=== PATIENT | female | born 1945 | race Caucasian/White ===

== ENCOUNTER 2018-06-18 12:06 | Inpatient (IN) | payer OTHER, MEDICAID ==
[~2018-06-18] VITALS: Ht 167.6 cm; Wt 103.9 kg
--- NOTE | 2018-06-18 13:10 | PHYS DOC ---
Adult General Chief Complaint Chief Complaint: SHORTNESS OF BREATH HPI HPI Patient is a 73 year old female who presents with SOA. Pt states she had a doctors appointment this morning and she was told to come to the ED because she was in heart failure. She has been SOA since last November when she was diagnosed with COPD. She complains of leg swelling for a month with associated 16 pound weight gain. Increased shortness of breath with lying flat She takes a water pill. She has a chronic cough with clear sputum production. Denies CP, nausea, vomiting, fever, chills. [] Review of Systems Review of Systems Constitutional: Denies fever or chills [] Eyes: Denies change in visual acuity, redness, or eye pain [] HENT: Denies nasal congestion or sore throat [] Respiratory: Productive cough, shortness of breath [] Cardiovascular: No additional information not addressed in HPI [] GI: Denies abdominal pain, nausea, vomiting, bloody stools or diarrhea [] : Denies dysuria or hematuria [] Musculoskeletal: Denies back pain or joint pain [] Integument: Denies rash or skin lesions [] Neurologic: Denies headache, focal weakness or sensory changes [] Endocrine: Denies polyuria or polydipsia [] All other systems were reviewed and found to be within normal limits, except as documented in this note. Current Medications Current Medications Current Medications Medications (Trade) Dose Ordered Sig/Segundo Start Time Stop Time Status Last Admin Dose Admin Aspirin (Children'S Aspirin) 324 mg 1X ONCE 06/18/18 14:00 06/18/18 14:47 DC 06/18/18 14:59 324 MG Furosemide (Lasix) 40 mg 1X ONCE 06/18/18 14:00 06/18/18 14:47 DC 06/18/18 14:59 40 MG Physical Exam Physical Exam Constitutional: Well developed, well nourished, no acute distress, non-toxic appearance. [] HENT: Normocephalic, atraumatic, bilateral external ears normal, oropharynx moist, no oral exudates, nose normal. [] Eyes: PERRLA, EOMI, conjunctiva normal, no discharge. [] Neck: Normal range of motion, no tenderness, supple, no stridor. [] Cardiovascular:Heart rate regular rhythm, no murmur [] Lungs & Thorax: Decreased bibasilar breath sounds with faint crackles noted bilaterally Abdomen: Bowel sounds normal, soft, no tenderness, no masses, no pulsatile masses. [] Skin: Warm, dry, no erythema, no rash. [] Back: No tenderness, no CVA tenderness. [] Extremities: No tenderness, no cyanosis, no clubbing, ROM intact,EDEMA NOTED Neurologic: Alert and oriented X 3, normal motor function, normal sensory function, no focal deficits noted. [] Psychologic: Affect normal, judgement normal, mood normal. [] Current Patient Data Vital Signs Vital Signs Date Time Temp Pulse Resp B/P (MAP) Pulse Ox O2 Delivery O2 Flow Rate FiO2 06/18/18 14:00 86 18 110/58 (75) 94 Nasal Cannula 4.0 06/18/18 13:07 98.6 98.6 Lab Values Laboratory Tests Test 06/18/18 13:30 White Blood Count 4.5 x10^3/uL (4.0-11.0) Red Blood Count 4.72 x10^6/uL (3.50-5.40) Hemoglobin 13.5 g/dL (12.0-15.5) Hematocrit 41.1 % (36.0-47.0) Mean Corpuscular Volume 87 fL (79-100) Mean Corpuscular Hemoglobin 29 pg (25-35) Mean Corpuscular Hemoglobin Concent 33 g/dL (31-37) Red Cell Distribution Width 17.1 % (11.5-14.5) H Platelet Count 139 x10^3/uL (140-400) L Neutrophils (%) (Auto) 83 % (31-73) H Lymphocytes (%) (Auto) 12 % (24-48) L Monocytes (%) (Auto) 4 % (0-9) Eosinophils (%) (Auto) 1 % (0-3) Basophils (%) (Auto) 1 % (0-3) Neutrophils # (Auto) 3.7 x10^3uL (1.8-7.7) Lymphocytes # (Auto) 0.5 x10^3/uL (1.0-4.8) L Monocytes # (Auto) 0.2 x10^3/uL (0.0-1.1) Eosinophils # (Auto) 0.0 x10^3/uL (0.0-0.7) Basophils # (Auto) 0.0 x10^3/uL (0.0-0.2) Prothrombin Time 13.9 SEC (11.7-14.0) Prothrombin Time INR 1.1 (0.8-1.1) Sodium Level 125 mmol/L (136-145) L Potassium Level 3.0 mmol/L (3.5-5.1) L Chloride Level 86 mmol/L (98-107) L Carbon Dioxide Level 29 mmol/L (21-32) Anion Gap 10 (6-14) Blood Urea Nitrogen 6 mg/dL (7-20) L Creatinine 1.1 mg/dL (0.6-1.0) H Estimated GFR (Cockcroft-Gault) 48.8 BUN/Creatinine Ratio 5 (6-20) L Glucose Level 137 mg/dL (70-99) H Calcium Level 8.9 mg/dL (8.5-10.1) Magnesium Level 2.0 mg/dL (1.8-2.4) Total Bilirubin 1.8 mg/dL (0.2-1.0) H Aspartate Amino Transferase (AST) 22 U/L (15-37) Alanine Aminotransferase (ALT) 20 U/L (14-59) Alkaline Phosphatase 189 U/L (46-116) H Troponin I Quantitative 0.037 ng/mL (0.000-0.055) YD-Nnu-W-Type Natriuretic Peptide 46342 pg/mL (0-124) H Total Protein 7.0 g/dL (6.4-8.2) Albumin 3.4 g/dL (3.4-5.0) Albumin/Globulin Ratio 0.9 (1.0-1.7) L Triglycerides Level 104 mg/dL (0-150) Cholesterol Level 154 mg/dL (0-200) LDL Cholesterol, Calculated 98 mg/dL (0-100) VLDL Cholesterol, Calculated 21 mg/dL (0-40) Non-HDL Cholesterol Calculated 119 mg/dL (0-129) HDL Cholesterol 35 mg/dL (40-60) L Cholesterol/HDL Ratio 4.4 Thyroid Stimulating Hormone (TSH) 5.404 uIU/mL (0.358-3.74) H Laboratory Tests 06/18/18 13:30 Laboratory Tests 06/18/18 13:30 EKG EKG EKG shows normal sinus rhythm rate of [address] depressions in the lateral leads no definite ST elevation was noted interpreted by me the time of encounter[] Radiology/Procedures Radiology/Procedures [] Impressions: IMPRESSION: 1. Small right pleural effusion and trace left pleural effusion. 2. Mild atelectasis or infiltrate in the right lung base. 3. Mild diffuse interstitial prominence could be related to chronic fibrosis. Mild interstitial infiltrate or edema is possible. Electronically signed by: David Vega MD (06/18/2018 1:14 PM) [facility] Course & Med Decision Making Course & Med Decision Making Pertinent Labs and Imaging studies reviewed. (See chart for details) 73 YO F WITH CC OF SOB X MONTHS FOUND TO HAVE CHF. CXR AND BNP SUGGESTIVE OF THAT. 85 ra PT STABLE ON NC LASIX ORDERED K ORDERED D/W FARELA FOR ADMIT Dragon Disclaimer Dragon Disclaimer This electronic medical record was generated, in whole or in part, using a voice recognition dictation system. Departure Departure Impression: Primary Impression: Congestive heart failure Disposition: ADMITTED INPATIENT Admitting Physician: Other Condition: STABLE SON WAGGONER MD Jun 18, 2018 13:10
--- NOTE | 2018-06-18 13:17 | RAD ---
PORTABLE CHEST 1V History: SOA. No prior study for comparison. The heart size is widened in transverse diameter. There is a small right pleural effusion. Possible trace left pleural effusion. No pneumothorax. Mild irregular pleural and parenchymal density of both lung apices, would most commonly be due to scarring. Mild linear density right lung compatible with atelectasis. Mild interstitial prominence bilaterally. Mild right lung base atelectasis versus mild infiltrate. IMPRESSION: 1. Small right pleural effusion and trace left pleural effusion. 2. Mild atelectasis or infiltrate in the right lung base. 3. Mild diffuse interstitial prominence could be related to chronic fibrosis. Mild interstitial infiltrate or edema is possible. Electronically signed by: David Vega MD (06/18/2018 1:14 PM) [facility]
[2018-06-18 13:39] LABS: BASO % 1 % (0-3); EOS % 1 % (0-3); HEMATOCRIT 41.1 % (36.0-47.0); HEMOGLOBIN 13.5 g/dL (12.0-15.5); LYMPH # 0.5 x10^3/uL (1.0-4.8); LYMPH % 12 % (24-48); MEAN CORPUSCULAR HEMOGLOBIN 29 pg (25-35); MEAN CORPUSCULAR HGB CONC 33 g/dL (31-37); MEAN CORPUSCULAR VOLUME 87 fL (79-100); MONO # 0.2 x10^3/uL (0.0-1.1); MONO % 4 % (0-9); NEUT # 3.7 x10^3uL (1.8-7.7); NEUT % 83 % (31-73); PLATELET COUNT 139 x10^3/uL (140-400); RED BLOOD COUNT 4.72 x10^6/uL (3.50-5.40); RED CELL DISTRIBUTION WIDTH 17.1 % (11.5-14.5); WHITE BLOOD COUNT 4.5 x10^3/uL (4.0-11.0)
[2018-06-18 13:48] LABS: PROTHROMBIN TIME PATIENT 13.9 SEC (11.7-14.0)
[2018-06-18] MEDS ORDERED: FUROSEMIDE 40 MG/4 ML VIAL. IVP ONE (14:00)
[2018-06-18] MEDS ORDERED: ASPIRIN CHEWABLE 81 MG TABLET. PO ONE (14:00)
[2018-06-18 14:19] LABS: ALBUMIN 3.4 g/dL (3.4-5.0); ALBUMIN/GLOBULIN RATIO 0.9 (1.0-1.7); CALCIUM 8.9 mg/dL (8.5-10.1); CREATININE 1.1 mg/dL (0.6-1.0); GFR 48.8; TOTAL BILIRUBIN 1.8 mg/dL (0.2-1.0)
--- NOTE | 2018-06-18 14:35 | EKG ---
[facility] [address] [place] [address] Test Date: 2018-06-18 Test Time: 12:26:23 Pat Name: SHANEKA DAVIS Department: Room: Gender: F Revival Clerk: : [id number] Requested By: SON WAGGONER Order Number: [id number] Reading MD: Genaro Solano MD Measurements Intervals [place] Rate: 93 P: 22 CO: 172 QRS: 31 QRSD: 106 T: 66 QT: 386 QTc: 483 Interpretive Statements SINUS RHYTHM ATRIAL PREMATURE COMPLEX(ES) LEFT ATRIAL ABNORMALITY LOW LIMB LEAD VOLTAGE ST & T ABNORMALITY, CONSIDER INFEROLATERAL ISCHEMIA OR LEFT VENTRICULAR STRAIN ABNORMAL ECG INTRAVENTRICULAR CONDUCTION DELAY Electronically Signed On 06-22-2018 14:57:23 CDT by Genaro Solano MD
[2018-06-18] MEDS ORDERED: POTASSIUM CHLORIDE 20 MEQ/15 ML ORAL LIQUID. PO ONE (15:00)
--- NOTE | 2018-06-18 15:02 | PDOC2 ---
NURA BELL CUT AND COVER LINE WORKER 06/18/18 1502: CARDIAC CONSULT DATE OF CONSULT Date of Consult DATE: 06/18/18 TIME: 14:58 REASON FOR CONSULT Reason for Consult: CHF REFERRING PHYSICIAN Referring Physician: Chris SOURCE Source: Chart review, Patient HISTORY OF PRESENT ILLNESS HISTORY OF PRESENT ILLNESS This is a 73 yo female admitted for complains of SOA. She just started seeing her family doctor regularly last yr. She has been having SOA in the last month and actually was placed on lasix not too long ago 80 mg daily ans was complaining of SOA over a week ago and leg swelling and was placed on maxide and lasix was discontinued accdg to her. Her PCP is currently on vacation and saw the nurse practitioner in the same office because her leg is red and was SOA and noted to have gained about 16 pounds in just a week. Her abdomen also has been feeling bigger and feeling bloated and her appetite has decreased. She denies eating processed food and actually receives meals on wheels. She drinks adequate amount of fluids. Denies any chest pain or palpitations but she has been more SOA in the last 2 days more so with exertion with no O2 being utilized at home. She was recently diagnosed with COPD 11/2017 with over 55 pk yr smoking and quit at that time as well. No hx of CAD, arrhythmias, GÓMEZ, or VTE. She does have small superficial ulcer behind her right radha which she said from scratching. She initially told me that her legs hurt when walking but then later denied and her friend reiterates weakness. Has not had any cardiac testing in the past. Denies any fever chills. PAST MEDICAL HISTORY Cardiovascular: CHF Pulmonary: COPD CENTRAL NERVOUS SYSTEM: Other (No pertinent history) GI: No pertinent hx Heme/Onc: No pertinent hx Hepatobiliary: No pertinent hx Psych: No pertinent hx Musculoskeletal: Osteoarthritis Rheumatologic: No pertinent hx Infectious disease: No pertinent hx ENT: No pertinent hx Renal/: No pertinent hx Endocrine: Hypothyroidism Dermatology: Other (large mid back lesion irregular no redness that she had for 50 yrs, no drain or redness currently; right calf superficial ulcer small. ) PAST SURGICAL HISTORY Past Surgical History: Arthroscopy (right), Cataract Removal, Other (left ankle surgery with metal plate) FAMILY HISTORY Family History noncontributory to CV SOCIAL HISTORY Smoke: Quit (55 pk yr) ALCOHOL: none Drugs: None Lives: with Family (she takes care of her mother at home) ALLERGIES ALLERGIES: Coded Allergies: Penicillins (Verified Allergy, Intermediate, 06/18/18) ROS Review of System 14 point ROS evaluated with pertinent positives noted per HPI PHYSICAL EXAM General: Alert, Oriented X3, Cooperative, No acute distress HEENT: Atraumatic, Mucous membr. moist/pink Lungs: Other (basilr crackles, diminished) Heart: Regular rate (SR), Other (distal heart sounds) Abdomen: Soft, Other (obese) Extremities: Other (erythema to bilateral LE more to left. superficioal ulcer to right posterior calf. ) Skin: Other (patchy coolness to bilateral LE) Neuro: Normal speech, Sensation intact Psych/Mental Status: Mental status NL, Mood NL MUSCULOSKELETAL: Osteoarthritic changes both hands VITALS VITALS Vital Signs Date Time Temp Pulse Resp B/P (MAP) Pulse Ox O2 Delivery O2 Flow Rate FiO2 06/18/18 13:07 98.6 96 22 112/63 (79) 85 Room Air 98.6 LABS Lab: Laboratory Tests Test 06/18/18 13:30 White Blood Count 4.5 x10^3/uL (4.0-11.0) Red Blood Count 4.72 x10^6/uL (3.50-5.40) Hemoglobin 13.5 g/dL (12.0-15.5) Hematocrit 41.1 % (36.0-47.0) Mean Corpuscular Volume 87 fL (79-100) Mean Corpuscular Hemoglobin 29 pg (25-35) Mean Corpuscular Hemoglobin Concent 33 g/dL (31-37) Red Cell Distribution Width 17.1 % (11.5-14.5) Platelet Count 139 x10^3/uL (140-400) Neutrophils (%) (Auto) 83 % (31-73) Lymphocytes (%) (Auto) 12 % (24-48) Monocytes (%) (Auto) 4 % (0-9) Eosinophils (%) (Auto) 1 % (0-3) Basophils (%) (Auto) 1 % (0-3) Neutrophils # (Auto) 3.7 x10^3uL (1.8-7.7) Lymphocytes # (Auto) 0.5 x10^3/uL (1.0-4.8) Monocytes # (Auto) 0.2 x10^3/uL (0.0-1.1) Eosinophils # (Auto) 0.0 x10^3/uL (0.0-0.7) Basophils # (Auto) 0.0 x10^3/uL (0.0-0.2) Prothrombin Time 13.9 SEC (11.7-14.0) Prothromb Time International Ratio 1.1 (0.8-1.1) Sodium Level 125 mmol/L (136-145) Potassium Level 3.0 mmol/L (3.5-5.1) Chloride Level 86 mmol/L (98-107) Carbon Dioxide Level 29 mmol/L (21-32) Anion Gap 10 (6-14) Blood Urea Nitrogen 6 mg/dL (7-20) Creatinine 1.1 mg/dL (0.6-1.0) Estimated GFR (Cockcroft-Gault) 48.8 BUN/Creatinine Ratio 5 (6-20) Glucose Level 137 mg/dL (70-99) Calcium Level 8.9 mg/dL (8.5-10.1) Total Bilirubin 1.8 mg/dL (0.2-1.0) Aspartate Amino Transf (AST/SGOT) 22 U/L (15-37) Alanine Aminotransferase (ALT/SGPT) 20 U/L (14-59) Alkaline Phosphatase 189 U/L (46-116) Troponin I Quantitative 0.037 ng/mL (0.000-0.055) AZ-Cgg-E-Type Natriuretic Peptide 99471 pg/mL (0-124) Total Protein 7.0 g/dL (6.4-8.2) Albumin 3.4 g/dL (3.4-5.0) Albumin/Globulin Ratio 0.9 (1.0-1.7) ASSESSMENT/PLAN ASSESSMENT/PLAN 1. Acute on chronic CHF with suspected diastolic dysfunction 2. AECOPD/pulmonary HTN 3. LE edema with possible cellulitis: more to RLE with small superficial right posterior ulcer. suspecting PAD. 4. Hypothyroidism 5. Chronic large mid back elevated lesion: defer to PCP 6. Morbid obesity with likely GÓMEZ 7. Severe onychmycoses: per PCP Recommendations 1. LE duplex. TTE. 2. Lasix therapy. Continue with home ASA. Statin per lipid level. 3. TSH, Mg, A1C, UA 4. Replace K. 5. Wt loss. 6. will need outpt GÓMEZ workup. ALYSSIA PASCUAL MD 06/18/18 1630: CARDIAC CONSULT ASSESSMENT/PLAN ASSESSMENT/PLAN Pt. seen and examined. Agree with above FLORAL DECORATOR note. Continue diuresis and close monitoring of lytes. Await diagnostic studies including PAD eval. Can consider outpt angio depending on wound healing, diuretic response etc. Will follow along. NURA BELL CUT AND COVER LINE WORKER Jun 18, 2018 15:02 ALYSSIA PASCUAL MD Jun 18, 2018 16:30
[2018-06-18 15:37] LABS: CHOLESTEROL/HDL RATIO 4.4
--- NOTE | 2018-06-18 15:58 | PDOC1 ---
History and Physical Date of Admission Date of Admission 06/18/2018 Identification/Chief Complaint Chief Complaint My legs are swollen Problems: (1) Congestive heart failure Source Source: Chart review, Patient History of Present Illness History of Present Illness Patient is a 73-year-old female with past medical history of congestive heart failure which most likely is combined chronic in nature who was in her usual state of health until approximately 2 weeks prior to her admission. The patient has been seen by her primary care physician and she had a recent changes to her medications. She was started on Maxide to substitute her previous diuretic therapy with Lasix 80 mg twice a day. Ever since the change of her medication patient has noted a decrease in her urinary output and has gained approximately 16 pounds. The majority of her complaints is due to lower extremity edema which she describes as swelling as a cantaloupe. The patient has pain upon ambulation due to the edema that she denies symptoms consistent with claudication most likely her discomfort is due to the increase edema. The patient denies headache no blurred vision she denies slurred speech no chest pain no palpitations she denies shortness of breath nevertheless the patient sleeps with several pillows almost sitting up she has orthopnea denies paroxysmal nocturnal dyspnea. Patient has history also of severe sore arthritis or her ankles. At the time my evaluation the patient is able to speak in full sentences she does not seem to be in acute distress but she has already received diuretic therapy at the time my evaluation by ER physician. We were asked to admit for further evaluation and treatment. Plan of care has been explained detail to the patient. All of her concerns were addressed the best of my abilities. Laboratory data was discussed with the patient. Past Medical History Cardiovascular: CHF, HTN Past Surgical History Past Surgical History: Total knee replacement Family History Family History: Other (reviewed and found negative noncontributory to the present) Social History Smoke: No ALCOHOL: none Drugs: None Current Problem List Problem List Problems Medical Problems: (1) Congestive heart failure Status: Acute Current Medications Current Medications Current Medications Medications (Trade) Dose Ordered Sig/Segundo Start Time Stop Time Status Last Admin Dose Admin Aspirin (Children'S Aspirin) 324 mg 1X ONCE 06/18/18 14:00 06/18/18 14:47 DC 06/18/18 14:59 324 MG Furosemide (Lasix) 40 mg [id number] 06/19/18 09:00 Potassium Chloride (KCl Oral Soln) 40 meq 1X ONCE 06/18/18 15:00 06/18/18 15:01 DC 06/18/18 14:59 40 MEQ Allergies Allergies Allergies Coded Allergies Type Severity Reaction Last Updated Verified Penicillins Allergy Intermediate 06/18/18 Yes ROS Review of System CONSTITUTIONAL: No fever or chills EYES: No recent changes SKIN: No rash or itching, she has a cystic lesion in her back in the thoracic area with evidence of previous draining tracts now with a scab on top she refers having this lesion for 50 years now CARDIOVASCULAR: No chest pain, syncope, palpitations, or edema RESPIRATORY: +SOB no cough GASTROINTESTINAL: No nausea, vomiting or abdominal pain NEUROLOGICAL: No headaches + weakness ENDOCRINE: No cold or heat intolerance GENITOURINARY: No urgency or frequency of urination MUSCULOSKELETAL: No back pain or joint pain LYMPHATICS: No enlarged lymph nodes PSYCHIATRIC: No anxiety or depression Physical Exam Physical Exam GEN.: Obese ,sittiing on a stretches in No apparent distress. Alert and oriented. HEENT: Head is normocephalic, atraumatic NECK: Supple. LUNGS: Clear to auscultation.distant breath sounds due to body habitus HEART: RRR, S1, S2 present. Peripheral pulses intact ABDOMEN: Soft, nontender. Positive bowel sounds. EXTREMITIES: Without any cyanosis. erythema bilaterally, 2+ edema NEUROLOGIC: Normal speech, normal tone CN 2 to 12 intact no motor or sensory deficit. PSYCHIATRIC: Normal affect, normal mood. SKIN: No ulcerations Vitals Vitals Vital Signs Date Time Temp Pulse Resp B/P (MAP) Pulse Ox O2 Delivery O2 Flow Rate FiO2 06/18/18 13:07 98.6 96 22 112/63 (79) 85 Room Air 98.6 Labs Labs Laboratory Tests Test 06/18/18 13:30 White Blood Count 4.5 x10^3/uL (4.0-11.0) Red Blood Count 4.72 x10^6/uL (3.50-5.40) Hemoglobin 13.5 g/dL (12.0-15.5) Hematocrit 41.1 % (36.0-47.0) Mean Corpuscular Volume 87 fL (79-100) Mean Corpuscular Hemoglobin 29 pg (25-35) Mean Corpuscular Hemoglobin Concent 33 g/dL (31-37) Red Cell Distribution Width 17.1 % (11.5-14.5) Platelet Count 139 x10^3/uL (140-400) Neutrophils (%) (Auto) 83 % (31-73) Lymphocytes (%) (Auto) 12 % (24-48) Monocytes (%) (Auto) 4 % (0-9) Eosinophils (%) (Auto) 1 % (0-3) Basophils (%) (Auto) 1 % (0-3) Neutrophils # (Auto) 3.7 x10^3uL (1.8-7.7) Lymphocytes # (Auto) 0.5 x10^3/uL (1.0-4.8) Monocytes # (Auto) 0.2 x10^3/uL (0.0-1.1) Eosinophils # (Auto) 0.0 x10^3/uL (0.0-0.7) Basophils # (Auto) 0.0 x10^3/uL (0.0-0.2) Prothrombin Time 13.9 SEC (11.7-14.0) Prothromb Time International Ratio 1.1 (0.8-1.1) Sodium Level 125 mmol/L (136-145) Potassium Level 3.0 mmol/L (3.5-5.1) Chloride Level 86 mmol/L (98-107) Carbon Dioxide Level 29 mmol/L (21-32) Anion Gap 10 (6-14) Blood Urea Nitrogen 6 mg/dL (7-20) Creatinine 1.1 mg/dL (0.6-1.0) Estimated GFR (Cockcroft-Gault) 48.8 BUN/Creatinine Ratio 5 (6-20) Glucose Level 137 mg/dL (70-99) Calcium Level 8.9 mg/dL (8.5-10.1) Magnesium Level 2.0 mg/dL (1.8-2.4) Total Bilirubin 1.8 mg/dL (0.2-1.0) Aspartate Amino Transf (AST/SGOT) 22 U/L (15-37) Alanine Aminotransferase (ALT/SGPT) 20 U/L (14-59) Alkaline Phosphatase 189 U/L (46-116) Troponin I Quantitative 0.037 ng/mL (0.000-0.055) PZ-Ssm-K-Type Natriuretic Peptide 95405 pg/mL (0-124) Total Protein 7.0 g/dL (6.4-8.2) Albumin 3.4 g/dL (3.4-5.0) Albumin/Globulin Ratio 0.9 (1.0-1.7) Triglycerides Level 104 mg/dL (0-150) Cholesterol Level 154 mg/dL (0-200) LDL Cholesterol, Calculated 98 mg/dL (0-100) VLDL Cholesterol, Calculated 21 mg/dL (0-40) Non-HDL Cholesterol Calculated 119 mg/dL (0-129) HDL Cholesterol 35 mg/dL (40-60) Cholesterol/HDL Ratio 4.4 Thyroid Stimulating Hormone (TSH) 5.404 uIU/mL (0.358-3.74) Laboratory Tests Test 06/18/18 13:30 White Blood Count 4.5 x10^3/uL (4.0-11.0) Red Blood Count 4.72 x10^6/uL (3.50-5.40) Hemoglobin 13.5 g/dL (12.0-15.5) Hematocrit 41.1 % (36.0-47.0) Mean Corpuscular Volume 87 fL (79-100) Mean Corpuscular Hemoglobin 29 pg (25-35) Mean Corpuscular Hemoglobin Concent 33 g/dL (31-37) Red Cell Distribution Width 17.1 % (11.5-14.5) Platelet Count 139 x10^3/uL (140-400) Neutrophils (%) (Auto) 83 % (31-73) Lymphocytes (%) (Auto) 12 % (24-48) Monocytes (%) (Auto) 4 % (0-9) Eosinophils (%) (Auto) 1 % (0-3) Basophils (%) (Auto) 1 % (0-3) Neutrophils # (Auto) 3.7 x10^3uL (1.8-7.7) Lymphocytes # (Auto) 0.5 x10^3/uL (1.0-4.8) Monocytes # (Auto) 0.2 x10^3/uL (0.0-1.1) Eosinophils # (Auto) 0.0 x10^3/uL (0.0-0.7) Basophils # (Auto) 0.0 x10^3/uL (0.0-0.2) Prothrombin Time 13.9 SEC (11.7-14.0) Prothromb Time International Ratio 1.1 (0.8-1.1) Sodium Level 125 mmol/L (136-145) Potassium Level 3.0 mmol/L (3.5-5.1) Chloride Level 86 mmol/L (98-107) Carbon Dioxide Level 29 mmol/L (21-32) Anion Gap 10 (6-14) Blood Urea Nitrogen 6 mg/dL (7-20) Creatinine 1.1 mg/dL (0.6-1.0) Estimated GFR (Cockcroft-Gault) 48.8 BUN/Creatinine Ratio 5 (6-20) Glucose Level 137 mg/dL (70-99) Calcium Level 8.9 mg/dL (8.5-10.1) Magnesium Level 2.0 mg/dL (1.8-2.4) Total Bilirubin 1.8 mg/dL (0.2-1.0) Aspartate Amino Transf (AST/SGOT) 22 U/L (15-37) Alanine Aminotransferase (ALT/SGPT) 20 U/L (14-59) Alkaline Phosphatase 189 U/L (46-116) Troponin I Quantitative 0.037 ng/mL (0.000-0.055) FG-Ole-W-Type Natriuretic Peptide 61826 pg/mL (0-124) Total Protein 7.0 g/dL (6.4-8.2) Albumin 3.4 g/dL (3.4-5.0) Albumin/Globulin Ratio 0.9 (1.0-1.7) Triglycerides Level 104 mg/dL (0-150) Cholesterol Level 154 mg/dL (0-200) LDL Cholesterol, Calculated 98 mg/dL (0-100) VLDL Cholesterol, Calculated 21 mg/dL (0-40) Non-HDL Cholesterol Calculated 119 mg/dL (0-129) HDL Cholesterol 35 mg/dL (40-60) Cholesterol/HDL Ratio 4.4 Thyroid Stimulating Hormone (TSH) 5.404 uIU/mL (0.358-3.74) VTE Prophylaxis Ordered VTE Prophylaxis Devices: No VTE Pharmacological Prophylaxi: Yes Assessment/Plan Assessment/Plan Acute on chronic congestive heart failure secondary to fluid overload, combined systolic and diastolic dysfunction suspected Hyponatremia as a consequence of diuretic therapy Contraction alkalosis Obesity with a BMI of 38 Chronic kidney disease stage II Hyperglycemia History of tobacco abuse quit about 1 year ago after greater than [id number] history of smoking COPD most likely Hypokalemia Plan: diuresis restart home medications once available hold maxide replace electrolytes consult cardiology oxygen therapy as needed further recommendations based on clinical course DVT prophylaxis: Heparin Problem Qualifiers (1) Congestive heart failure: Heart failure type: combined systolic and diastolic Heart failure chronicity: acute on chronic Qualified Codes: I50.43 - Acute on chronic combined systolic (congestive) and diastolic (congestive) heart failure DA MCADAMS MD Jun 18, 2018 15:58
[2018-06-18] MEDS ORDERED: 0.9 % SODIUM CHLORIDE 10 ML DISP.SYRIN. IV PRN (16:00)
[2018-06-18] MEDS: FUROSEMIDE 40 MG/4 ML VIAL. IV SCH (16:00)
[2018-06-18] MEDS ORDERED: ONDANSETRON PF 4 MG/2 ML VIAL. IV PRN (16:00)
[2018-06-18] MEDS ORDERED: ALBUTEROL SULFATE 2.5 MG/3 ML NEBU. NEB PRN (16:00)
[2018-06-18] MEDS ORDERED: SODIUM PHOSPHATES 19/7GM 133 ML ENEMA. PR PRN (16:00)
[2018-06-18] MEDS: IPRATRPIUM/ALBUTEROL 0.5/2.5MG 3 ML NEBU. NEB SCH ×2 (16:55→20:07)
[2018-06-18] MEDS: HEPARIN for SUB-Q USE 5,000 UNIT/ML VIAL. SQ SCH ×2 (18:10→21:18)
[2018-06-18] MEDS ORDERED: ASPI81TA50 PO (18:27)
[2018-06-18] MEDS ORDERED: LEVO88TA2 PO (18:27)
[2018-06-18] MEDS ORDERED: LATA2.5D3 EACHEYE (18:27)
[2018-06-18] MEDS ORDERED: TRIA1CAP3 PO (18:27)
[2018-06-18 19:00] VITALS: BP 103/62
[2018-06-18 20:22] LABS: BILIRUBIN,URINE NEGATIVE (NEG); CLARITY,URINE CLEAR; COLOR,URINE YELLOW; NITRITE,URINE NEGATIVE (NEG); PROTEIN,URINE NEGATIVE (NEG-TRACE); UROBILINOGEN,URINE 0.2 mg/dL (0.2 mg/dL)
[2018-06-18 20:33] LABS: BACTERIA,URINE 0 /HPF (0-FEW); RBC,URINE 0 /HPF (0-2); SQUAMOUS EPITHELIAL CELL,UR FEW /LPF; WBC,URINE OCC /HPF (0-4)
[2018-06-18] MEDS: LATANOPROST 0.005% OPHTH SOLUTION 2.5ML BOTTLE. OU SCH (21:13)
[2018-06-18 23:01] VITALS: BP 117/60
[2018-06-19] VITALS (7 sets, daily range): BP systolic 94–117; BP diastolic 32–72
[2018-06-19 00:12] LABS: HEMOGLOBIN A1C 7.9 % (4.8-5.6)
[2018-06-19] MEDS: IPRATRPIUM/ALBUTEROL 0.5/2.5MG 3 ML NEBU. NEB SCH ×6 (04:00→20:00)
[2018-06-19 04:13] LABS: GFR 54.5; POTASSIUM 3.2 mmol/L (3.5-5.1)
[2018-06-19] MEDS: diphenhydrAMINE 50 MG/ML VIAL IVP PRN ×2 (04:15→09:31)
--- NOTE | 2018-06-19 07:55 | PDOC ---
PROGRESS NOTES Chief Complaint Chief Complaint Acute on chronic CHF with suspected diastolic dysfunction AECOPD/pulmonary HTN LE edema more to RLE with small superficial right posterior ulcer. suspecting PAD. Hypothyroidism Elevated bilirubin - constipated - bowel regimen Hypokalemia Chronic large mid back elevated lesion Morbid obesity with likely GÓMEZ Severe onychmycoses DM2 - A1c 7.9 History of Present Illness History of Present Illness 73-year-old female with past medical history of congestive heart failure which most likely is combined chronic in nature who was in her usual state of health until approximately 2 weeks prior to her admission. The patient has been seen by her primary care physician and she had a recent changes to her medications. She was started on Maxide to substitute her previous diuretic therapy with Lasix 80 mg twice a day. Ever since the change of her medication patient has noted a decrease in her urinary output and has gained approximately 16 pounds. The majority of her complaints is due to lower extremity edema which she describes as swelling as a cantaloupe. The patient has pain upon ambulation due to the edema that she denies symptoms consistent with claudication most likely her discomfort is due to the increase edema. The patient denies headache no blurred vision she denies slurred speech no chest pain no palpitations she denies shortness of breath nevertheless the patient sleeps with several pillows almost sitting up she has orthopnea denies paroxysmal nocturnal dyspnea. Patient has history also of severe sore arthritis or her ankles. Still short of breath, feels better sitting up in chair. Edema slightly improved. UOP good. K 3.2 this morning, some leg cramps. no CP Plan: A1c is 7.9 - DM2 - will add basal bolus plus regimen for insulin coverage replace K elevate LE Likely d/c in next 24-48 hours Vitals Vitals Vital Signs Date Time Temp Pulse Resp B/P (MAP) Pulse Ox O2 Delivery O2 Flow Rate FiO2 06/19/18 07:27 97.5 87 18 104/32 (56) 97 Nasal Cannula 4.0 97.5 Physical Exam General: Alert, Oriented X3, Cooperative, No acute distress Heart: Regular rate (SR), Other (distal heart sounds) Abdomen: Soft, Other (obese) Extremities: Other (erythema to bilateral LE more to left. superficioal ulcer to right posterior calf. ) Skin: Other (patchy coolness to bilateral LE) Labs LABS Laboratory Tests Test 06/18/18 13:30 06/18/18 19:48 06/19/18 03:30 White Blood Count 4.5 x10^3/uL (4.0-11.0) Red Blood Count 4.72 x10^6/uL (3.50-5.40) Hemoglobin 13.5 g/dL (12.0-15.5) Hematocrit 41.1 % (36.0-47.0) Mean Corpuscular Volume 87 fL (79-100) Mean Corpuscular Hemoglobin 29 pg (25-35) Mean Corpuscular Hemoglobin Concent 33 g/dL (31-37) Red Cell Distribution Width 17.1 % (11.5-14.5) Platelet Count 139 x10^3/uL (140-400) Neutrophils (%) (Auto) 83 % (31-73) Lymphocytes (%) (Auto) 12 % (24-48) Monocytes (%) (Auto) 4 % (0-9) Eosinophils (%) (Auto) 1 % (0-3) Basophils (%) (Auto) 1 % (0-3) Neutrophils # (Auto) 3.7 x10^3uL (1.8-7.7) Lymphocytes # (Auto) 0.5 x10^3/uL (1.0-4.8) Monocytes # (Auto) 0.2 x10^3/uL (0.0-1.1) Eosinophils # (Auto) 0.0 x10^3/uL (0.0-0.7) Basophils # (Auto) 0.0 x10^3/uL (0.0-0.2) Prothrombin Time 13.9 SEC (11.7-14.0) Prothromb Time International Ratio 1.1 (0.8-1.1) Sodium Level 125 mmol/L (136-145) 125 mmol/L (136-145) Potassium Level 3.0 mmol/L (3.5-5.1) 3.2 mmol/L (3.5-5.1) Chloride Level 86 mmol/L (98-107) 88 mmol/L (98-107) Carbon Dioxide Level 29 mmol/L (21-32) 27 mmol/L (21-32) Anion Gap 10 (6-14) 10 (6-14) Blood Urea Nitrogen 6 mg/dL (7-20) 7 mg/dL (7-20) Creatinine 1.1 mg/dL (0.6-1.0) 1.0 mg/dL (0.6-1.0) Estimated GFR (Cockcroft-Gault) 48.8 54.5 BUN/Creatinine Ratio 5 (6-20) Glucose Level 137 mg/dL (70-99) 122 mg/dL (70-99) Hemoglobin A1c 7.9 % (4.8-5.6) Calcium Level 8.9 mg/dL (8.5-10.1) 9.0 mg/dL (8.5-10.1) Magnesium Level 2.0 mg/dL (1.8-2.4) 2.0 mg/dL (1.8-2.4) Total Bilirubin 1.8 mg/dL (0.2-1.0) Aspartate Amino Transf (AST/SGOT) 22 U/L (15-37) Alanine Aminotransferase (ALT/SGPT) 20 U/L (14-59) Alkaline Phosphatase 189 U/L (46-116) Troponin I Quantitative 0.037 ng/mL (0.000-0.055) RD-Bfa-T-Type Natriuretic Peptide 58412 pg/mL (0-124) Total Protein 7.0 g/dL (6.4-8.2) Albumin 3.4 g/dL (3.4-5.0) Albumin/Globulin Ratio 0.9 (1.0-1.7) Triglycerides Level 104 mg/dL (0-150) Cholesterol Level 154 mg/dL (0-200) LDL Cholesterol, Calculated 98 mg/dL (0-100) VLDL Cholesterol, Calculated 21 mg/dL (0-40) Non-HDL Cholesterol Calculated 119 mg/dL (0-129) HDL Cholesterol 35 mg/dL (40-60) Cholesterol/HDL Ratio 4.4 Thyroid Stimulating Hormone (TSH) 5.404 uIU/mL (0.358-3.74) Urine Collection Type Unknown Urine Color Yellow Urine Clarity Clear Urine pH 7.0 Urine Specific [place] <=1.005 Urine Protein Negative mg/dL (NEG-TRACE) Urine Glucose (UA) Negative mg/dL (NEG) Urine Ketones (Stick) Negative mg/dL (NEG) Urine Blood Negative (NEG) Urine Nitrite Negative (NEG) Urine Bilirubin Negative (NEG) Urine Urobilinogen Dipstick 0.2 mg/dL (0.2 mg/dL) Urine Leukocyte Esterase Negative (NEG) Urine RBC 0 /HPF (0-2) Urine WBC Occ /HPF (0-4) Urine Squamous Epithelial Cells Few /LPF Urine Bacteria 0 /HPF (0-FEW) Urine Mucus Slight /LPF Assessment and Plan Assessmemt and Plan Problems Medical Problems: (1) Congestive heart failure Status: Acute Comment Review of Relevant I have reviewed the following items rosangela (where applicable) has been applied. Labs Laboratory Tests Test 06/18/18 13:30 06/18/18 19:48 06/19/18 03:30 White Blood Count 4.5 x10^3/uL (4.0-11.0) Red Blood Count 4.72 x10^6/uL (3.50-5.40) Hemoglobin 13.5 g/dL (12.0-15.5) Hematocrit 41.1 % (36.0-47.0) Mean Corpuscular Volume 87 fL (79-100) Mean Corpuscular Hemoglobin 29 pg (25-35) Mean Corpuscular Hemoglobin Concent 33 g/dL (31-37) Red Cell Distribution Width 17.1 % (11.5-14.5) Platelet Count 139 x10^3/uL (140-400) Neutrophils (%) (Auto) 83 % (31-73) Lymphocytes (%) (Auto) 12 % (24-48) Monocytes (%) (Auto) 4 % (0-9) Eosinophils (%) (Auto) 1 % (0-3) Basophils (%) (Auto) 1 % (0-3) Neutrophils # (Auto) 3.7 x10^3uL (1.8-7.7) Lymphocytes # (Auto) 0.5 x10^3/uL (1.0-4.8) Monocytes # (Auto) 0.2 x10^3/uL (0.0-1.1) Eosinophils # (Auto) 0.0 x10^3/uL (0.0-0.7) Basophils # (Auto) 0.0 x10^3/uL (0.0-0.2) Prothrombin Time 13.9 SEC (11.7-14.0) Prothromb Time International Ratio 1.1 (0.8-1.1) Sodium Level 125 mmol/L (136-145) 125 mmol/L (136-145) Potassium Level 3.0 mmol/L (3.5-5.1) 3.2 mmol/L (3.5-5.1) Chloride Level 86 mmol/L (98-107) 88 mmol/L (98-107) Carbon Dioxide Level 29 mmol/L (21-32) 27 mmol/L (21-32) Anion Gap 10 (6-14) 10 (6-14) Blood Urea Nitrogen 6 mg/dL (7-20) 7 mg/dL (7-20) Creatinine 1.1 mg/dL (0.6-1.0) 1.0 mg/dL (0.6-1.0) Estimated GFR (Cockcroft-Gault) 48.8 54.5 BUN/Creatinine Ratio 5 (6-20) Glucose Level 137 mg/dL (70-99) 122 mg/dL (70-99) Hemoglobin A1c 7.9 % (4.8-5.6) Calcium Level 8.9 mg/dL (8.5-10.1) 9.0 mg/dL (8.5-10.1) Magnesium Level 2.0 mg/dL (1.8-2.4) 2.0 mg/dL (1.8-2.4) Total Bilirubin 1.8 mg/dL (0.2-1.0) Aspartate Amino Transf (AST/SGOT) 22 U/L (15-37) Alanine Aminotransferase (ALT/SGPT) 20 U/L (14-59) Alkaline Phosphatase 189 U/L (46-116) Troponin I Quantitative 0.037 ng/mL (0.000-0.055) AH-Ilq-G-Type Natriuretic Peptide 80143 pg/mL (0-124) Total Protein 7.0 g/dL (6.4-8.2) Albumin 3.4 g/dL (3.4-5.0) Albumin/Globulin Ratio 0.9 (1.0-1.7) Triglycerides Level 104 mg/dL (0-150) Cholesterol Level 154 mg/dL (0-200) LDL Cholesterol, Calculated 98 mg/dL (0-100) VLDL Cholesterol, Calculated 21 mg/dL (0-40) Non-HDL Cholesterol Calculated 119 mg/dL (0-129) HDL Cholesterol 35 mg/dL (40-60) Cholesterol/HDL Ratio 4.4 Thyroid Stimulating Hormone (TSH) 5.404 uIU/mL (0.358-3.74) Urine Collection Type Unknown Urine Color Yellow Urine Clarity Clear Urine pH 7.0 Urine Specific [place] <=1.005 Urine Protein Negative mg/dL (NEG-TRACE) Urine Glucose (UA) Negative mg/dL (NEG) Urine Ketones (Stick) Negative mg/dL (NEG) Urine Blood Negative (NEG) Urine Nitrite Negative (NEG) Urine Bilirubin Negative (NEG) Urine Urobilinogen Dipstick 0.2 mg/dL (0.2 mg/dL) Urine Leukocyte Esterase Negative (NEG) Urine RBC 0 /HPF (0-2) Urine WBC Occ /HPF (0-4) Urine Squamous Epithelial Cells Few /LPF Urine Bacteria 0 /HPF (0-FEW) Urine Mucus Slight /LPF Laboratory Tests Test 06/18/18 13:30 06/18/18 19:48 06/19/18 03:30 White Blood Count 4.5 x10^3/uL (4.0-11.0) Red Blood Count 4.72 x10^6/uL (3.50-5.40) Hemoglobin 13.5 g/dL (12.0-15.5) Hematocrit 41.1 % (36.0-47.0) Mean Corpuscular Volume 87 fL (79-100) Mean Corpuscular Hemoglobin 29 pg (25-35) Mean Corpuscular Hemoglobin Concent 33 g/dL (31-37) Red Cell Distribution Width 17.1 % (11.5-14.5) Platelet Count 139 x10^3/uL (140-400) Neutrophils (%) (Auto) 83 % (31-73) Lymphocytes (%) (Auto) 12 % (24-48) Monocytes (%) (Auto) 4 % (0-9) Eosinophils (%) (Auto) 1 % (0-3) Basophils (%) (Auto) 1 % (0-3) Neutrophils # (Auto) 3.7 x10^3uL (1.8-7.7) Lymphocytes # (Auto) 0.5 x10^3/uL (1.0-4.8) Monocytes # (Auto) 0.2 x10^3/uL (0.0-1.1) Eosinophils # (Auto) 0.0 x10^3/uL (0.0-0.7) Basophils # (Auto) 0.0 x10^3/uL (0.0-0.2) Prothrombin Time 13.9 SEC (11.7-14.0) Prothromb Time International Ratio 1.1 (0.8-1.1) Sodium Level 125 mmol/L (136-145) 125 mmol/L (136-145) Potassium Level 3.0 mmol/L (3.5-5.1) 3.2 mmol/L (3.5-5.1) Chloride Level 86 mmol/L (98-107) 88 mmol/L (98-107) Carbon Dioxide Level 29 mmol/L (21-32) 27 mmol/L (21-32) Anion Gap 10 (6-14) 10 (6-14) Blood Urea Nitrogen 6 mg/dL (7-20) 7 mg/dL (7-20) Creatinine 1.1 mg/dL (0.6-1.0) 1.0 mg/dL (0.6-1.0) Estimated GFR (Cockcroft-Gault) 48.8 54.5 BUN/Creatinine Ratio 5 (6-20) Glucose Level 137 mg/dL (70-99) 122 mg/dL (70-99) Hemoglobin A1c 7.9 % (4.8-5.6) Calcium Level 8.9 mg/dL (8.5-10.1) 9.0 mg/dL (8.5-10.1) Magnesium Level 2.0 mg/dL (1.8-2.4) 2.0 mg/dL (1.8-2.4) Total Bilirubin 1.8 mg/dL (0.2-1.0) Aspartate Amino Transf (AST/SGOT) 22 U/L (15-37) Alanine Aminotransferase (ALT/SGPT) 20 U/L (14-59) Alkaline Phosphatase 189 U/L (46-116) Troponin I Quantitative 0.037 ng/mL (0.000-0.055) VX-Fok-H-Type Natriuretic Peptide 30350 pg/mL (0-124) Total Protein 7.0 g/dL (6.4-8.2) Albumin 3.4 g/dL (3.4-5.0) Albumin/Globulin Ratio 0.9 (1.0-1.7) Triglycerides Level 104 mg/dL (0-150) Cholesterol Level 154 mg/dL (0-200) LDL Cholesterol, Calculated 98 mg/dL (0-100) VLDL Cholesterol, Calculated 21 mg/dL (0-40) Non-HDL Cholesterol Calculated 119 mg/dL (0-129) HDL Cholesterol 35 mg/dL (40-60) Cholesterol/HDL Ratio 4.4 Thyroid Stimulating Hormone (TSH) 5.404 uIU/mL (0.358-3.74) Urine Collection Type Unknown Urine Color Yellow Urine Clarity Clear Urine pH 7.0 Urine Specific [place] <=1.005 Urine Protein Negative mg/dL (NEG-TRACE) Urine Glucose (UA) Negative mg/dL (NEG) Urine Ketones (Stick) Negative mg/dL (NEG) Urine Blood Negative (NEG) Urine Nitrite Negative (NEG) Urine Bilirubin Negative (NEG) Urine Urobilinogen Dipstick 0.2 mg/dL (0.2 mg/dL) Urine Leukocyte Esterase Negative (NEG) Urine RBC 0 /HPF (0-2) Urine WBC Occ /HPF (0-4) Urine Squamous Epithelial Cells Few /LPF Urine Bacteria 0 /HPF (0-FEW) Urine Mucus Slight /LPF Medications Current Medications Furosemide (Lasix) 40 mg 1X ONCE IVP Last administered on 06/18/18at 14:59; Start 06/18/18 at 14:00; Stop 06/18/18 at 14:47; Status DC Aspirin (Children'S Aspirin) 324 mg 1X ONCE PO Last administered on 06/18/18at 14:59; Start 06/18/18 at 14:00; Stop 06/18/18 at 14:47; Status DC Potassium Chloride (KCl Oral Soln) 40 meq 1X ONCE PO Last administered on at 14:59; Start 06/18/18 at 15:00; Stop 06/18/18 at 15:01; Status DC Furosemide (Lasix) 40 mg DAILY IVP ; Start 06/19/18 at 09:00; Stop 06/19/18 at 09: 00; Status DC Furosemide (Lasix) 40 mg [id number] IVP ; Start 06/19/18 at 09:00; Stop 06/19/18 at 09: 00; Status DC Lisinopril (Prinivil) 2.5 mg DAILY PO ; Start 06/19/18 at 09:00 Furosemide (Lasix) 40 mg BID92 IV ; Start 06/18/18 at 16:00 Spironolactone (Aldactone) 25 mg DAILY PO ; Start 06/19/18 at 09:00 Heparin Sodium (Porcine) (Heparin Sodium) 5,000 unit Q12HR SQ Last administered on 06/18/18at 21:18; Start 06/18/18 at 16:00 Sodium Chloride (Normal Saline Flush) 3 ml QSHIFT PRN IV AFTER MEDS AND BLOOD DRAWS; Start 06/18/18 at 16:00 Ondansetron HCl (Zofran) 4 mg PRN Q4HRS PRN IV NAUSEA/VOMITING; Start 06/18/18 at 16:00 Acetaminophen (Tylenol) 650 mg PRN Q4HRS PRN PO TEMP OVER 100.4F OR MILD PAIN; Start 06/18/18 at 16:00 Sodium Monofluorophosphate (Fleet Adult) 133 ml PRN DAILY PRN [place] CONSTIPATION; Start 06/18/18 at 16:00 Diphenhydramine HCl (Benadryl) 25 mg PRN Q4HRS PRN IVP ITCHING Last administered on 06/19/18at 04:15; Start 06/18/18 at 16:00 Docusate Sodium (Colace) 100 mg PRN BID PRN PO CONSTIPATION; Start 06/18/18 at 16:00 Albuterol Sulfate (Ventolin Neb Soln) 2.5 mg PRN Q4HRS PRN NEB SHORTNESS OF BREATH; Start 06/18/18 at 16:00 Albuterol/ Ipratropium (Duoneb) 3 ml Q4HRS NEB Last administered on 06/19/18at 04 :00; Start 06/18/18 at 16:00 Aspirin (Ecotrin) 81 mg DAILY08 PO ; Start 06/19/18 at 08:00 Levothyroxine Sodium (Synthroid) 88 mcg DAILY08 PO ; Start 06/19/18 at 08:00 Latanoprost (Xalatan) 1 drop QHS OU Last administered on 06/18/18at 21:13; Start 06/18/18 at 21:00 Active Scripts Active Reported Aspir-Low (Aspirin) 81 Mg Tablet.dr 1 Tab PO DAILY Triamterene-Hctz 37.5-25 Mg Cp (Triamterene/Hydrochlorothiazid) 1 Each Capsule 1 Cap PO DAILY Synthroid (Levothyroxine Sodium) 88 Mcg Tablet 1 Tab PO DAILY Latanoprost 2.5 Ml Drops 1 Drop [facility] Vitals/I & O Vital Sign - Last 24 Hours 06/18/18 06/18/18 06/18/18 06/18/18 13:07 14:00 15:00 16:00 Temp 98.6 98.6 Pulse 96 86 84 86 Resp 22 18 18 16 B/P (MAP) 112/63 (79) 110/58 (75) 123/72 (89) 118/61 (80) Pulse Ox 85 94 94 94 O2 Delivery Room Air Nasal Cannula Nasal Cannula Nasal Cannula O2 Flow Rate 4.0 4.0 4.0 06/18/18 06/18/18 06/18/18 06/18/18 16:15 16:56 19:00 20:00 Temp 97.6 97.6 Pulse 85 Resp 18 B/P (MAP) 103/62 (76) Pulse Ox 95 95 O2 Delivery Nasal Cannula Nasal Cannula Nasal Cannula Nasal Cannula O2 Flow Rate 4.0 5.0 4.0 4.0 06/18/18 06/18/18 06/19/18 06/19/18 20:03 23:01 00:00 03:00 Temp 97.3 97.4 97.3 97.4 Pulse 85 87 Resp 16 12 B/P (MAP) 117/60 (79) 109/64 (79) Pulse Ox 95 98 95 97 O2 Delivery Nasal Cannula Nasal Cannula Nasal Cannula Nasal Cannula O2 Flow Rate 5.0 4.0 5.0 4.0 06/19/18 06/19/18 04:02 07:27 Temp 97.5 97.5 Pulse 87 Resp 18 B/P (MAP) 104/32 (56) Pulse Ox 95 97 O2 Delivery Nasal Cannula Nasal Cannula O2 Flow Rate 5.0 4.0 Intake and Output 06/18/18 06/18/18 06/19/18 15:00 23:00 07:00 Intake Total 750 ml Output Total 550 ml 200 ml Balance -550 ml 550 ml JAN FLORES MD Jun 19, 2018 07:55
[2018-06-19] MEDS ORDERED: FUROSEMIDE 40 MG/4 ML VIAL. IVP SCH ×2 (09:00)
[2018-06-19] MEDS: SPIRONOLACTONE 25 MG TABLET PO SCH (09:30)
[2018-06-19] MEDS: ASPIRIN ENTERIC COATED 81 MG TABLET.DR. PO SCH (09:30)
[2018-06-19] MEDS: LEVOTHYROXINE 88 MCG TABLET PO SCH (09:31)
[2018-06-19] MEDS: FUROSEMIDE 40 MG/4 ML VIAL. IV SCH ×2 (09:32→14:59)
[2018-06-19] MEDS: HEPARIN for SUB-Q USE 5,000 UNIT/ML VIAL. SQ SCH ×2 (09:36→20:23)
[2018-06-19] MEDS: LISINOPRIL 5 MG TABLET. PO SCH (09:42)
[2018-06-19] MEDS ORDERED: DEXTROSE 50% 25 GM / 50ML DISP.SYRIN. IV PRN (12:15)
[2018-06-19] MEDS ORDERED: POTASSIUM CHLORIDE 20 MEQ/15 ML ORAL LIQUID. PO ONE (13:00)
--- NOTE | 2018-06-19 13:20 | PDOC ---
PROGRESS NOTES Subjective Subjective Patient seen and examined She is feeling better today. Objective Objective Vital Signs Date Time Temp Pulse Resp B/P (MAP) Pulse Ox O2 Delivery O2 Flow Rate FiO2 06/19/18 11:48 Nasal Cannula 5.0 06/19/18 11:33 97.6 105 20 117/72 (87) 97 97.6 Intake and Output 06/19/18 07:00 Intake Total 750 ml Output Total 750 ml Balance 0 ml Intake Oral 750 ml Output Urine Total 750 ml Physical Exam Abdomen: Normal bowel sounds Heart: Other (irregular rhythm.) General: mild distress Lungs: Other (mildly decreased breath sounds) Assessment Assessment Problems Medical Problems: (1) Congestive heart failure Status: Acute 1. Acute on chronic CHF with suspected diastolic dysfunction. Improving. Continue present treatment. 2. AECOPD/pulmonary HTN 3. LE edema with possible cellulitis: more to RLE with small superficial right posterior ulcer. suspecting PAD. Arterial ultrasound pending. 4. Hypothyroidism 5. Chronic large mid back elevated lesion: defer to PCP 6. Morbid obesity with likely GÓMEZ Comment Review of Relevant I have reviewed the following items rosangela (where applicable) has been applied. Labs Laboratory Tests Test 06/18/18 13:30 06/18/18 19:48 06/19/18 03:30 06/19/18 10:58 White Blood Count 4.5 x10^3/uL (4.0-11.0) Red Blood Count 4.72 x10^6/uL (3.50-5.40) Hemoglobin 13.5 g/dL (12.0-15.5) Hematocrit 41.1 % (36.0-47.0) Mean Corpuscular Volume 87 fL (79-100) Mean Corpuscular Hemoglobin 29 pg (25-35) Mean Corpuscular Hemoglobin Concent 33 g/dL (31-37) Red Cell Distribution Width 17.1 % (11.5-14.5) Platelet Count 139 x10^3/uL (140-400) Neutrophils (%) (Auto) 83 % (31-73) Lymphocytes (%) (Auto) 12 % (24-48) Monocytes (%) (Auto) 4 % (0-9) Eosinophils (%) (Auto) 1 % (0-3) Basophils (%) (Auto) 1 % (0-3) Neutrophils # (Auto) 3.7 x10^3uL (1.8-7.7) Lymphocytes # (Auto) 0.5 x10^3/uL (1.0-4.8) Monocytes # (Auto) 0.2 x10^3/uL (0.0-1.1) Eosinophils # (Auto) 0.0 x10^3/uL (0.0-0.7) Basophils # (Auto) 0.0 x10^3/uL (0.0-0.2) Prothrombin Time 13.9 SEC (11.7-14.0) Prothromb Time International Ratio 1.1 (0.8-1.1) Sodium Level 125 mmol/L (136-145) 125 mmol/L (136-145) Potassium Level 3.0 mmol/L (3.5-5.1) 3.2 mmol/L (3.5-5.1) Chloride Level 86 mmol/L (98-107) 88 mmol/L (98-107) Carbon Dioxide Level 29 mmol/L (21-32) 27 mmol/L (21-32) Anion Gap 10 (6-14) 10 (6-14) Blood Urea Nitrogen 6 mg/dL (7-20) 7 mg/dL (7-20) Creatinine 1.1 mg/dL (0.6-1.0) 1.0 mg/dL (0.6-1.0) Estimated GFR (Cockcroft-Gault) 48.8 54.5 BUN/Creatinine Ratio 5 (6-20) Glucose Level 137 mg/dL (70-99) 122 mg/dL (70-99) Hemoglobin A1c 7.9 % (4.8-5.6) Calcium Level 8.9 mg/dL (8.5-10.1) 9.0 mg/dL (8.5-10.1) Magnesium Level 2.0 mg/dL (1.8-2.4) 2.0 mg/dL (1.8-2.4) Total Bilirubin 1.8 mg/dL (0.2-1.0) Aspartate Amino Transf (AST/SGOT) 22 U/L (15-37) Alanine Aminotransferase (ALT/SGPT) 20 U/L (14-59) Alkaline Phosphatase 189 U/L (46-116) Troponin I Quantitative 0.037 ng/mL (0.000-0.055) BH-Tjh-Y-Type Natriuretic Peptide 55210 pg/mL (0-124) Total Protein 7.0 g/dL (6.4-8.2) Albumin 3.4 g/dL (3.4-5.0) Albumin/Globulin Ratio 0.9 (1.0-1.7) Triglycerides Level 104 mg/dL (0-150) Cholesterol Level 154 mg/dL (0-200) LDL Cholesterol, Calculated 98 mg/dL (0-100) VLDL Cholesterol, Calculated 21 mg/dL (0-40) Non-HDL Cholesterol Calculated 119 mg/dL (0-129) HDL Cholesterol 35 mg/dL (40-60) Cholesterol/HDL Ratio 4.4 Thyroid Stimulating Hormone (TSH) 5.404 uIU/mL (0.358-3.74) Urine Collection Type Unknown Urine Color Yellow Urine Clarity Clear Urine pH 7.0 Urine Specific [place] <=1.005 Urine Protein Negative mg/dL (NEG-TRACE) Urine Glucose (UA) Negative mg/dL (NEG) Urine Ketones (Stick) Negative mg/dL (NEG) Urine Blood Negative (NEG) Urine Nitrite Negative (NEG) Urine Bilirubin Negative (NEG) Urine Urobilinogen Dipstick 0.2 mg/dL (0.2 mg/dL) Urine Leukocyte Esterase Negative (NEG) Urine RBC 0 /HPF (0-2) Urine WBC Occ /HPF (0-4) Urine Squamous Epithelial Cells Few /LPF Urine Bacteria 0 /HPF (0-FEW) Urine Mucus Slight /LPF Glucose (Fingerstick) 163 mg/dL (70-99) Laboratory Tests Test 06/18/18 13:30 06/18/18 19:48 06/19/18 03:30 06/19/18 10:58 White Blood Count 4.5 x10^3/uL (4.0-11.0) Red Blood Count 4.72 x10^6/uL (3.50-5.40) Hemoglobin 13.5 g/dL (12.0-15.5) Hematocrit 41.1 % (36.0-47.0) Mean Corpuscular Volume 87 fL (79-100) Mean Corpuscular Hemoglobin 29 pg (25-35) Mean Corpuscular Hemoglobin Concent 33 g/dL (31-37) Red Cell Distribution Width 17.1 % (11.5-14.5) Platelet Count 139 x10^3/uL (140-400) Neutrophils (%) (Auto) 83 % (31-73) Lymphocytes (%) (Auto) 12 % (24-48) Monocytes (%) (Auto) 4 % (0-9) Eosinophils (%) (Auto) 1 % (0-3) Basophils (%) (Auto) 1 % (0-3) Neutrophils # (Auto) 3.7 x10^3uL (1.8-7.7) Lymphocytes # (Auto) 0.5 x10^3/uL (1.0-4.8) Monocytes # (Auto) 0.2 x10^3/uL (0.0-1.1) Eosinophils # (Auto) 0.0 x10^3/uL (0.0-0.7) Basophils # (Auto) 0.0 x10^3/uL (0.0-0.2) Prothrombin Time 13.9 SEC (11.7-14.0) Prothromb Time International Ratio 1.1 (0.8-1.1) Sodium Level 125 mmol/L (136-145) 125 mmol/L (136-145) Potassium Level 3.0 mmol/L (3.5-5.1) 3.2 mmol/L (3.5-5.1) Chloride Level 86 mmol/L (98-107) 88 mmol/L (98-107) Carbon Dioxide Level 29 mmol/L (21-32) 27 mmol/L (21-32) Anion Gap 10 (6-14) 10 (6-14) Blood Urea Nitrogen 6 mg/dL (7-20) 7 mg/dL (7-20) Creatinine 1.1 mg/dL (0.6-1.0) 1.0 mg/dL (0.6-1.0) Estimated GFR (Cockcroft-Gault) 48.8 54.5 BUN/Creatinine Ratio 5 (6-20) Glucose Level 137 mg/dL (70-99) 122 mg/dL (70-99) Hemoglobin A1c 7.9 % (4.8-5.6) Calcium Level 8.9 mg/dL (8.5-10.1) 9.0 mg/dL (8.5-10.1) Magnesium Level 2.0 mg/dL (1.8-2.4) 2.0 mg/dL (1.8-2.4) Total Bilirubin 1.8 mg/dL (0.2-1.0) Aspartate Amino Transf (AST/SGOT) 22 U/L (15-37) Alanine Aminotransferase (ALT/SGPT) 20 U/L (14-59) Alkaline Phosphatase 189 U/L (46-116) Troponin I Quantitative 0.037 ng/mL (0.000-0.055) OB-Tza-I-Type Natriuretic Peptide 56579 pg/mL (0-124) Total Protein 7.0 g/dL (6.4-8.2) Albumin 3.4 g/dL (3.4-5.0) Albumin/Globulin Ratio 0.9 (1.0-1.7) Triglycerides Level 104 mg/dL (0-150) Cholesterol Level 154 mg/dL (0-200) LDL Cholesterol, Calculated 98 mg/dL (0-100) VLDL Cholesterol, Calculated 21 mg/dL (0-40) Non-HDL Cholesterol Calculated 119 mg/dL (0-129) HDL Cholesterol 35 mg/dL (40-60) Cholesterol/HDL Ratio 4.4 Thyroid Stimulating Hormone (TSH) 5.404 uIU/mL (0.358-3.74) Urine Collection Type Unknown Urine Color Yellow Urine Clarity Clear Urine pH 7.0 Urine Specific [place] <=1.005 Urine Protein Negative mg/dL (NEG-TRACE) Urine Glucose (UA) Negative mg/dL (NEG) Urine Ketones (Stick) Negative mg/dL (NEG) Urine Blood Negative (NEG) Urine Nitrite Negative (NEG) Urine Bilirubin Negative (NEG) Urine Urobilinogen Dipstick 0.2 mg/dL (0.2 mg/dL) Urine Leukocyte Esterase Negative (NEG) Urine RBC 0 /HPF (0-2) Urine WBC Occ /HPF (0-4) Urine Squamous Epithelial Cells Few /LPF Urine Bacteria 0 /HPF (0-FEW) Urine Mucus Slight /LPF Glucose (Fingerstick) 163 mg/dL (70-99) Medications Current Medications Furosemide (Lasix) 40 mg 1X ONCE IVP Last administered on 06/18/18at 14:59; Start 06/18/18 at 14:00; Stop 06/18/18 at 14:47; Status DC Aspirin (Children'S Aspirin) 324 mg 1X ONCE PO Last administered on 06/18/18 14:59; Start 06/18/18 at 14:00; Stop 06/18/18 at 14:47; Status DC Potassium Chloride (KCl Oral Soln) 40 meq 1X ONCE PO Last administered on 14:59; Start 06/18/18 at 15:00; Stop 06/18/18 at 15:01; Status DC Furosemide (Lasix) 40 mg DAILY IVP ; Start 06/19/18 at 09:00; Stop 06/19/18 at 09: 00; Status DC Furosemide (Lasix) 40 mg BID94 IVP ; Start 06/19/18 at 09:00; Stop 06/19/18 at 09: 00; Status DC Lisinopril (Prinivil) 2.5 mg DAILY PO Last administered on 06/19/18 09:42; Start 06/19/18 at 09:00 Furosemide (Lasix) 40 mg BID92 IV Last administered on 06/19/18 09:32; Start at 16:00 Spironolactone (Aldactone) 25 mg DAILY PO Last administered on 06/19/18 09:30; Start 06/19/18 at 09:00 Heparin Sodium (Porcine) (Heparin Sodium) 5,000 unit Q12HR SQ Last administered on 06/19/18 09:36; Start 06/18/18 at 16:00 Sodium Chloride (Normal Saline Flush) 3 ml QSHIFT PRN IV AFTER MEDS AND BLOOD DRAWS; Start 06/18/18 at 16:00 Ondansetron HCl (Zofran) 4 mg PRN Q4HRS PRN IV NAUSEA/VOMITING; Start 06/18/18 at 16:00 Acetaminophen (Tylenol) 650 mg PRN Q4HRS PRN PO TEMP OVER 100.4F OR MILD PAIN; Start 06/18/18 at 16:00 Sodium Monofluorophosphate (Fleet Adult) 133 ml PRN DAILY PRN NC CONSTIPATION; Start 06/18/18 at 16:00 Diphenhydramine HCl (Benadryl) 25 mg PRN Q4HRS PRN IVP ITCHING Last administered on 06/19/18 09:31; Start 06/18/18 at 16:00 Docusate Sodium (Colace) 100 mg PRN BID PRN PO CONSTIPATION; Start 06/18/18 at 16:00 Albuterol Sulfate (Ventolin Neb Soln) 2.5 mg PRN Q4HRS PRN NEB SHORTNESS OF BREATH; Start 06/18/18 at 16:00 Albuterol/ Ipratropium (Duoneb) 3 ml Q4HRS NEB Last administered on 06/19/18at 11 :47; Start 06/18/18 at 16:00 Aspirin (Ecotrin) 81 mg DAILY08 PO Last administered on 06/19/18at 09:30; Start 06/19/18 at 08:00 Levothyroxine Sodium (Synthroid) 88 mcg DAILY08 PO Last administered on at 09:31; Start 06/19/18 at 08:00 Latanoprost (Xalatan) 1 drop QHS OU Last administered on 06/18/18at 21:13; Start 06/18/18 at 21:00 Potassium Chloride (KCl Oral Soln) 40 meq 1X ONCE PO ; Start 06/19/18 at 13:00; Stop 06/19/18 at 13:01; Status DC Insulin Glargine (Lantus) 5 units QHS SQ ; Start 06/19/18 at 21:00 Insulin Human Lispro (HumaLOG) 0-5 UNITS TIDWMEALS SQ ; Start 06/19/18 at 12:30 Dextrose (Dextrose 50%-Water Syringe) 12.5 gm PRN Q15MIN PRN IV SEE COMMENTS; Start 06/19/18 at 12:15 Active Scripts Active Reported Aspir-Low (Aspirin) 81 Mg Tablet.dr 1 Tab PO DAILY Triamterene-Hctz 37.5-25 Mg Cp (Triamterene/Hydrochlorothiazid) 1 Each Capsule 1 Cap PO DAILY Synthroid (Levothyroxine Sodium) 88 Mcg Tablet 1 Tab PO DAILY Latanoprost 2.5 Ml Drops 1 Drop EACHEYE QHS Vitals/I & O Vital Sign - Last 24 Hours 06/18/18 06/18/18 06/18/18 06/18/18 14:00 15:00 16:00 16:15 Pulse 86 84 86 Resp 18 18 16 B/P (MAP) 110/58 (75) 123/72 (89) 118/61 (80) Pulse Ox 94 94 94 O2 Delivery Nasal Cannula Nasal Cannula Nasal Cannula Nasal Cannula O2 Flow Rate 4.0 4.0 4.0 4.0 06/18/18 06/18/18 06/18/18 06/18/18 16:56 19:00 20:00 20:03 Temp 97.6 97.6 Pulse 85 Resp 18 B/P (MAP) 103/62 (76) Pulse Ox 95 95 95 O2 Delivery Nasal Cannula Nasal Cannula Nasal Cannula Nasal Cannula O2 Flow Rate 5.0 4.0 4.0 5.0 06/18/18 06/19/18 06/19/18 06/19/18 23:01 00:00 03:00 04:02 Temp 97.3 97.4 97.3 97.4 Pulse 85 87 Resp 16 12 B/P (MAP) 117/60 (79) 109/64 (79) Pulse Ox 98 95 97 95 O2 Delivery Nasal Cannula Nasal Cannula Nasal Cannula Nasal Cannula O2 Flow Rate 4.0 5.0 4.0 5.0 06/19/18 06/19/18 06/19/18 06/19/18 07:27 08:00 08:07 09:42 Temp 97.5 97.5 Pulse 87 94 Resp 18 B/P (MAP) 104/32 (56) Pulse Ox 97 95 O2 Delivery Nasal Cannula Nasal Cannula Nasal Cannula O2 Flow Rate 4.0 5.0 06/19/18 06/19/18 11:33 11:48 Temp 97.6 97.6 Pulse 105 Resp 20 B/P (MAP) 117/72 (87) Pulse Ox 97 O2 Delivery Nasal Cannula Nasal Cannula O2 Flow Rate 4.0 5.0 Intake and Output 06/18/18 06/18/18 06/19/18 15:00 23:00 07:00 Intake Total 750 ml Output Total 550 ml 200 ml Balance -550 ml 550 ml GIANA CUMMINS MD Jun 19, 2018 13:19
[2018-06-19] MEDS: INSULIN LISPRO 300 UNITS/3 ML INSULN.PEN. SQ SCH ×2 (13:37→17:00)
--- NOTE | 2018-06-19 13:59 | NUR ---
FACULTY CO-SIGN I have reviewed the documentation by nursing teacher: Addendum: 06/19/18 at 1359 by MARINA CORLEY RN Amended: Links added.
--- NOTE | 2018-06-19 14:35 | NUR ---
Patient has refused repeated attempts at bathing.
--- NOTE | 2018-06-19 17:59 | NUR ---
Patient denies eating anything but half a bowl of soup.
[2018-06-19] MEDS: LATANOPROST 0.005% OPHTH SOLUTION 2.5ML BOTTLE. OU SCH (20:24)
[2018-06-19] MEDS: INSULIN GLARGINE 300 UNITS/3 ML INSULN.PEN. SQ SCH (20:24)
[2018-06-20 03:56] VITALS: BP 102/70
[2018-06-20] MEDS: IPRATRPIUM/ALBUTEROL 0.5/2.5MG 3 ML NEBU. NEB SCH ×7 (04:35→23:55)
[2018-06-20 05:19] LABS: CALCIUM 8.8 mg/dL (8.5-10.1); CREATININE 1.1 mg/dL (0.6-1.0); GFR 48.8; PHOSPHORUS 3.6 mg/dL (2.6-4.7); POTASSIUM 3.5 mmol/L (3.5-5.1)
--- NOTE | 2018-06-20 07:28 | PDOC ---
PROGRESS NOTES Chief Complaint Chief Complaint Acute on chronic CHF with suspected diastolic dysfunction AECOPD/pulmonary HTN LE edema more to RLE with small superficial right posterior ulcer. suspecting PAD. Hypothyroidism Elevated bilirubin - constipated - bowel regimen Hypokalemia Chronic large mid back elevated lesion Morbid obesity with likely GÓMEZ Severe onychmycoses DM2 - A1c 7.9 History of Present Illness History of Present Illness 73-year-old female with past medical history of congestive heart failure which most likely is combined chronic in nature who was in her usual state of health until approximately 2 weeks prior to her admission. The patient has been seen by her primary care physician and she had a recent changes to her medications. She was started on Maxide to substitute her previous diuretic therapy with Lasix 80 mg twice a day. Ever since the change of her medication patient has noted a decrease in her urinary output and has gained approximately 16 pounds. The majority of her complaints is due to lower extremity edema which she describes as swelling as a cantaloupe. The patient has pain upon ambulation due to the edema that she denies symptoms consistent with claudication most likely her discomfort is due to the increase edema. The patient denies headache no blurred vision she denies slurred speech no chest pain no palpitations she denies shortness of breath nevertheless the patient sleeps with several pillows almost sitting up she has orthopnea denies paroxysmal nocturnal dyspnea. Patient has history also of severe sore arthritis or her ankles. 4/6: Still short of breath, feels better sitting up in chair. Edema slightly improved. UOP good. K 3.2 this morning, some leg cramps. no CP Bp low this morning, held meds for SBP in the 70s. BP on repeat SBP of 95. Still SOB, no CP. Swelling no better Plan: A1c is 7.9 - DM2 - will add basal bolus plus regimen for insulin coverage replace K elevate LE Likely d/c in next 24-48 hours Vitals Vitals Vital Signs Date Time Temp Pulse Resp B/P (MAP) Pulse Ox O2 Delivery O2 Flow Rate FiO2 06/20/18 04:35 96 Nasal Cannula 5.0 06/20/18 03:56 97.7 83 9 102/70 (81) 97.7 Physical Exam General: Alert, Cooperative, mild distress Heart: Regular rate, Normal S1, Normal S2, Other (irregular rhythm.) Lungs: Crackles Abdomen: Normal bowel sounds Extremities: Other (erythema to bilateral LE more to left. superficioal ulcer to right posterior calf. ) Skin: Other (patchy coolness to bilateral LE) Labs LABS Laboratory Tests Test 06/19/18 10:58 06/19/18 17:26 06/19/18 20:21 06/20/18 04:30 Glucose (Fingerstick) 163 mg/dL (70-99) 152 mg/dL (70-99) 147 mg/dL (70-99) Sodium Level 122 mmol/L (136-145) Potassium Level 3.5 mmol/L (3.5-5.1) Chloride Level 85 mmol/L (98-107) Carbon Dioxide Level 29 mmol/L (21-32) Anion Gap 8 (6-14) Blood Urea Nitrogen 9 mg/dL (7-20) Creatinine 1.1 mg/dL (0.6-1.0) Estimated GFR (Cockcroft-Gault) 48.8 Glucose Level 107 mg/dL (70-99) Calcium Level 8.8 mg/dL (8.5-10.1) Phosphorus Level 3.6 mg/dL (2.6-4.7) Albumin 3.0 g/dL (3.4-5.0) Assessment and Plan Assessmemt and Plan Problems Medical Problems: (1) Congestive heart failure Status: Acute Comment Review of Relevant I have reviewed the following items rosangela (where applicable) has been applied. Labs Laboratory Tests Test 06/18/18 13:30 06/18/18 19:48 06/19/18 03:30 06/19/18 10:58 White Blood Count 4.5 x10^3/uL (4.0-11.0) Red Blood Count 4.72 x10^6/uL (3.50-5.40) Hemoglobin 13.5 g/dL (12.0-15.5) Hematocrit 41.1 % (36.0-47.0) Mean Corpuscular Volume 87 fL (79-100) Mean Corpuscular Hemoglobin 29 pg (25-35) Mean Corpuscular Hemoglobin Concent 33 g/dL (31-37) Red Cell Distribution Width 17.1 % (11.5-14.5) Platelet Count 139 x10^3/uL (140-400) Neutrophils (%) (Auto) 83 % (31-73) Lymphocytes (%) (Auto) 12 % (24-48) Monocytes (%) (Auto) 4 % (0-9) Eosinophils (%) (Auto) 1 % (0-3) Basophils (%) (Auto) 1 % (0-3) Neutrophils # (Auto) 3.7 x10^3uL (1.8-7.7) Lymphocytes # (Auto) 0.5 x10^3/uL (1.0-4.8) Monocytes # (Auto) 0.2 x10^3/uL (0.0-1.1) Eosinophils # (Auto) 0.0 x10^3/uL (0.0-0.7) Basophils # (Auto) 0.0 x10^3/uL (0.0-0.2) Prothrombin Time 13.9 SEC (11.7-14.0) Prothromb Time International Ratio 1.1 (0.8-1.1) Sodium Level 125 mmol/L (136-145) 125 mmol/L (136-145) Potassium Level 3.0 mmol/L (3.5-5.1) 3.2 mmol/L (3.5-5.1) Chloride Level 86 mmol/L (98-107) 88 mmol/L (98-107) Carbon Dioxide Level 29 mmol/L (21-32) 27 mmol/L (21-32) Anion Gap 10 (6-14) 10 (6-14) Blood Urea Nitrogen 6 mg/dL (7-20) 7 mg/dL (7-20) Creatinine 1.1 mg/dL (0.6-1.0) 1.0 mg/dL (0.6-1.0) Estimated GFR (Cockcroft-Gault) 48.8 54.5 BUN/Creatinine Ratio 5 (6-20) Glucose Level 137 mg/dL (70-99) 122 mg/dL (70-99) Hemoglobin A1c 7.9 % (4.8-5.6) Calcium Level 8.9 mg/dL (8.5-10.1) 9.0 mg/dL (8.5-10.1) Magnesium Level 2.0 mg/dL (1.8-2.4) 2.0 mg/dL (1.8-2.4) Total Bilirubin 1.8 mg/dL (0.2-1.0) Aspartate Amino Transf (AST/SGOT) 22 U/L (15-37) Alanine Aminotransferase (ALT/SGPT) 20 U/L (14-59) Alkaline Phosphatase 189 U/L (46-116) Troponin I Quantitative 0.037 ng/mL (0.000-0.055) SB-Abf-G-Type Natriuretic Peptide 25655 pg/mL (0-124) Total Protein 7.0 g/dL (6.4-8.2) Albumin 3.4 g/dL (3.4-5.0) Albumin/Globulin Ratio 0.9 (1.0-1.7) Triglycerides Level 104 mg/dL (0-150) Cholesterol Level 154 mg/dL (0-200) LDL Cholesterol, Calculated 98 mg/dL (0-100) VLDL Cholesterol, Calculated 21 mg/dL (0-40) Non-HDL Cholesterol Calculated 119 mg/dL (0-129) HDL Cholesterol 35 mg/dL (40-60) Cholesterol/HDL Ratio 4.4 Thyroid Stimulating Hormone (TSH) 5.404 uIU/mL (0.358-3.74) Urine Collection Type Unknown Urine Color Yellow Urine Clarity Clear Urine pH 7.0 Urine Specific [place] <=1.005 Urine Protein Negative mg/dL (NEG-TRACE) Urine Glucose (UA) Negative mg/dL (NEG) Urine Ketones (Stick) Negative mg/dL (NEG) Urine Blood Negative (NEG) Urine Nitrite Negative (NEG) Urine Bilirubin Negative (NEG) Urine Urobilinogen Dipstick 0.2 mg/dL (0.2 mg/dL) Urine Leukocyte Esterase Negative (NEG) Urine RBC 0 /HPF (0-2) Urine WBC Occ /HPF (0-4) Urine Squamous Epithelial Cells Few /LPF Urine Bacteria 0 /HPF (0-FEW) Urine Mucus Slight /LPF Glucose (Fingerstick) 163 mg/dL (70-99) Test 06/19/18 17:26 06/19/18 20:21 06/20/18 04:30 Glucose (Fingerstick) 152 mg/dL (70-99) 147 mg/dL (70-99) Sodium Level 122 mmol/L (136-145) Potassium Level 3.5 mmol/L (3.5-5.1) Chloride Level 85 mmol/L (98-107) Carbon Dioxide Level 29 mmol/L (21-32) Anion Gap 8 (6-14) Blood Urea Nitrogen 9 mg/dL (7-20) Creatinine 1.1 mg/dL (0.6-1.0) Estimated GFR (Cockcroft-Gault) 48.8 Glucose Level 107 mg/dL (70-99) Calcium Level 8.8 mg/dL (8.5-10.1) Phosphorus Level 3.6 mg/dL (2.6-4.7) Albumin 3.0 g/dL (3.4-5.0) Laboratory Tests Test 06/19/18 10:58 06/19/18 17:26 06/19/18 20:21 06/20/18 04:30 Glucose (Fingerstick) 163 mg/dL (70-99) 152 mg/dL (70-99) 147 mg/dL (70-99) Sodium Level 122 mmol/L (136-145) Potassium Level 3.5 mmol/L (3.5-5.1) Chloride Level 85 mmol/L (98-107) Carbon Dioxide Level 29 mmol/L (21-32) Anion Gap 8 (6-14) Blood Urea Nitrogen 9 mg/dL (7-20) Creatinine 1.1 mg/dL (0.6-1.0) Estimated GFR (Cockcroft-Gault) 48.8 Glucose Level 107 mg/dL (70-99) Calcium Level 8.8 mg/dL (8.5-10.1) Phosphorus Level 3.6 mg/dL (2.6-4.7) Albumin 3.0 g/dL (3.4-5.0) Medications Current Medications Furosemide (Lasix) 40 mg 1X ONCE IVP Last administered on 06/18/18at 14:59; Start 06/18/18 at 14:00; Stop 06/18/18 at 14:47; Status DC Aspirin (Children'S Aspirin) 324 mg 1X ONCE PO Last administered on 06/18/18at 14:59; Start 06/18/18 at 14:00; Stop 06/18/18 at 14:47; Status DC Potassium Chloride (KCl Oral Soln) 40 meq 1X ONCE PO Last administered on at 14:59; Start 06/18/18 at 15:00; Stop 06/18/18 at 15:01; Status DC Furosemide (Lasix) 40 mg DAILY IVP ; Start 06/19/18 at 09:00; Stop 06/19/18 at 09: 00; Status DC Furosemide (Lasix) 40 mg BID94 IVP ; Start 06/19/18 at 09:00; Stop 06/19/18 at 09: 00; Status DC Lisinopril (Prinivil) 2.5 mg DAILY PO Last administered on 06/19/18 09:42; Start 06/19/18 at 09:00 Furosemide (Lasix) 40 mg BID92 IV Last administered on 06/19/18at 14:59; Start at 16:00 Spironolactone (Aldactone) 25 mg DAILY PO Last administered on 06/19/18 09:30; Start 06/19/18 at 09:00 Heparin Sodium (Porcine) (Heparin Sodium) 5,000 unit Q12HR SQ Last administered on 06/19/18at 20:23; Start 06/18/18 at 16:00 Sodium Chloride (Normal Saline Flush) 3 ml QSHIFT PRN IV AFTER MEDS AND BLOOD DRAWS; Start 06/18/18 at 16:00 Ondansetron HCl (Zofran) 4 mg PRN Q4HRS PRN IV NAUSEA/VOMITING; Start 06/18/18 at 16:00 Acetaminophen (Tylenol) 650 mg PRN Q4HRS PRN PO TEMP OVER 100.4F OR MILD PAIN; Start 06/18/18 at 16:00 Sodium Monofluorophosphate (Fleet Adult) 133 ml PRN DAILY PRN [place] CONSTIPATION; Start 06/18/18 at 16:00 Diphenhydramine HCl (Benadryl) 25 mg PRN Q4HRS PRN IVP ITCHING Last administered on 06/19/18at 09:31; Start 06/18/18 at 16:00 Docusate Sodium (Colace) 100 mg PRN BID PRN PO CONSTIPATION; Start 06/18/18 at 16:00 Albuterol Sulfate (Ventolin Neb Soln) 2.5 mg PRN Q4HRS PRN NEB SHORTNESS OF BREATH; Start 06/18/18 at 16:00 Albuterol/ Ipratropium (Duoneb) 3 ml Q4HRS NEB Last administered on 06/20/18at 04 :35; Start 06/18/18 at 16:00 Aspirin (Ecotrin) 81 mg DAILY08 PO Last administered on 06/19/18 09:30; Start 06/19/18 at 08:00 Levothyroxine Sodium (Synthroid) 88 mcg DAILY08 PO Last administered on 09:31; Start 06/19/18 at 08:00 Latanoprost (Xalatan) 1 drop QHS OU Last administered on 06/19/18 20:24; Start 06/18/18 at 21:00 Potassium Chloride (KCl Oral Soln) 40 meq 1X ONCE PO Last administered on 13:43; Start 06/19/18 at 13:00; Stop 06/19/18 at 13:01; Status DC Insulin Glargine (Lantus) 5 units QHS SQ Last administered on 06/19/18 20:24; Start 06/19/18 at 21:00 Insulin Human Lispro (HumaLOG) 0-5 UNITS TIDWMEALS SQ Last administered on 13:37; Start 06/19/18 at 12:30 Dextrose (Dextrose 50%-Water Syringe) 12.5 gm PRN Q15MIN PRN IV SEE COMMENTS; Start 06/19/18 at 12:15 Active Scripts Active Reported Aspir-Low (Aspirin) 81 Mg Tablet.dr 1 Tab PO DAILY Triamterene-Hctz 37.5-25 Mg Cp (Triamterene/Hydrochlorothiazid) 1 Each Capsule 1 Cap PO DAILY Synthroid (Levothyroxine Sodium) 88 Mcg Tablet 1 Tab PO DAILY Latanoprost 2.5 Ml Drops 1 Drop EACHEYE QHS Vitals/I & O Vital Sign - Last 24 Hours 06/19/18 06/19/18 06/19/18 06/19/18 08:00 08:07 09:42 10:00 Pulse 94 94 B/P (MAP) 115/64 (81) Pulse Ox 95 95 O2 Delivery Nasal Cannula Nasal Cannula Nasal Cannula O2 Flow Rate 5.0 4.0 06/19/18 06/19/18 06/19/18 06/19/18 11:33 11:48 15:00 15:30 Temp 97.6 97.9 97.6 97.9 Pulse 105 90 Resp 20 18 B/P (MAP) 117/72 (87) 105/59 (74) Pulse Ox 97 96 96 O2 Delivery Nasal Cannula Nasal Cannula Nasal Cannula Nasal Cannula O2 Flow Rate 4.0 5.0 4.0 5.0 06/19/18 06/19/18 06/19/18 06/19/18 19:05 19:40 20:15 23:45 Temp 98.2 97.8 98.2 97.8 Pulse 87 84 Resp 19 22 B/P (MAP) 101/55 (70) 94/50 (65) Pulse Ox 97 96 96 O2 Delivery Nasal Cannula Nasal Cannula Nasal Cannula Nasal Cannula O2 Flow Rate 4.0 4.0 5.0 4.0 06/20/18 06/20/18 06/20/18 00:13 03:56 04:35 Temp 97.7 97.7 Pulse 83 Resp 9 B/P (MAP) 102/70 (81) Pulse Ox 96 96 96 O2 Delivery Nasal Cannula Nasal Cannula Nasal Cannula O2 Flow Rate 5.0 4.0 5.0 Intake and Output 06/19/18 06/19/18 06/20/18 15:00 23:00 07:00 Intake Total 400 ml 680 ml 500 ml Output Total 750 ml 250 ml 250 ml Balance -350 ml 430 ml 250 ml JAN FLORES MD Jun 20, 2018 07:28
[2018-06-20 07:33] VITALS: BP 96/66
[2018-06-20] MEDS: INSULIN LISPRO 300 UNITS/3 ML INSULN.PEN. SQ SCH ×3 (08:00→16:54)
[2018-06-20] MEDS: ASPIRIN ENTERIC COATED 81 MG TABLET.DR. PO SCH (08:45)
[2018-06-20] MEDS: LEVOTHYROXINE 88 MCG TABLET PO SCH (08:46)
[2018-06-20] MEDS: LISINOPRIL 5 MG TABLET. PO SCH (09:00)
[2018-06-20] MEDS: HEPARIN for SUB-Q USE 5,000 UNIT/ML VIAL. SQ SCH ×2 (09:01→20:21)
[2018-06-20 11:40] VITALS: BP 104/62
[2018-06-20] MEDS: FUROSEMIDE 40 MG/4 ML VIAL. IV SCH ×2 (11:57→16:01)
[2018-06-20] MEDS: SPIRONOLACTONE 25 MG TABLET PO SCH (12:46)
--- NOTE | 2018-06-20 13:58 | PDOC ---
PROGRESS NOTES Subjective Subjective Patient seen and examined She continues to slowly improve. Objective Objective Vital Signs Date Time Temp Pulse Resp B/P (MAP) Pulse Ox O2 Delivery O2 Flow Rate FiO2 06/20/18 11:40 98.4 85 18 104/62 (76) 95 Nasal Cannula 4.0 98.4 Intake and Output 06/20/18 07:00 Intake Total 1580 ml Output Total 1250 ml Balance 330 ml Intake Oral 1580 ml Output Urine Total 1250 ml Physical Exam Abdomen: Normal bowel sounds Heart: Regular rate General: mild distress Lungs: Other (mildly decreased breath sounds) Assessment Assessment Problems Medical Problems: (1) Congestive heart failure Status: Acute 1. Acute on chronic CHF. The patient continues to slowly improve. We'll continue present treatment. 2. AECOPD/pulmonary HTN. Treatment as above. 3. LE edema with possible cellulitis: more to RLE with small superficial right posterior ulcer. suspecting PAD. Arterial ultrasound pending. 4. Hypothyroidism 5. Chronic large mid back elevated lesion: defer to PCP 6. Morbid obesity with likely GÓMEZ Comment Review of Relevant I have reviewed the following items rosangela (where applicable) has been applied. Labs Laboratory Tests Test 06/18/18 19:48 06/19/18 03:30 06/19/18 10:58 06/19/18 17:26 Urine Collection Type Unknown Urine Color Yellow Urine Clarity Clear Urine pH 7.0 Urine Specific Garrison <=1.005 Urine Protein Negative mg/dL (NEG-TRACE) Urine Glucose (UA) Negative mg/dL (NEG) Urine Ketones (Stick) Negative mg/dL (NEG) Urine Blood Negative (NEG) Urine Nitrite Negative (NEG) Urine Bilirubin Negative (NEG) Urine Urobilinogen Dipstick 0.2 mg/dL (0.2 mg/dL) Urine Leukocyte Esterase Negative (NEG) Urine RBC 0 /HPF (0-2) Urine WBC Occ /HPF (0-4) Urine Squamous Epithelial Cells Few /LPF Urine Bacteria 0 /HPF (0-FEW) Urine Mucus Slight /LPF Sodium Level 125 mmol/L (136-145) Potassium Level 3.2 mmol/L (3.5-5.1) Chloride Level 88 mmol/L (98-107) Carbon Dioxide Level 27 mmol/L (21-32) Anion Gap 10 (6-14) Blood Urea Nitrogen 7 mg/dL (7-20) Creatinine 1.0 mg/dL (0.6-1.0) Estimated GFR (Cockcroft-Gault) 54.5 Glucose Level 122 mg/dL (70-99) Calcium Level 9.0 mg/dL (8.5-10.1) Magnesium Level 2.0 mg/dL (1.8-2.4) Glucose (Fingerstick) 163 mg/dL (70-99) 152 mg/dL (70-99) Test 06/19/18 20:21 06/20/18 04:30 06/20/18 08:44 06/20/18 11:23 Glucose (Fingerstick) 147 mg/dL (70-99) 147 mg/dL (70-99) 130 mg/dL (70-99) Sodium Level 122 mmol/L (136-145) Potassium Level 3.5 mmol/L (3.5-5.1) Chloride Level 85 mmol/L (98-107) Carbon Dioxide Level 29 mmol/L (21-32) Anion Gap 8 (6-14) Blood Urea Nitrogen 9 mg/dL (7-20) Creatinine 1.1 mg/dL (0.6-1.0) Estimated GFR (Cockcroft-Gault) 48.8 Glucose Level 107 mg/dL (70-99) Calcium Level 8.8 mg/dL (8.5-10.1) Phosphorus Level 3.6 mg/dL (2.6-4.7) Albumin 3.0 g/dL (3.4-5.0) Laboratory Tests Test 06/19/18 17:26 06/19/18 20:21 06/20/18 04:30 06/20/18 08:44 Glucose (Fingerstick) 152 mg/dL (70-99) 147 mg/dL (70-99) 147 mg/dL (70-99) Sodium Level 122 mmol/L (136-145) Potassium Level 3.5 mmol/L (3.5-5.1) Chloride Level 85 mmol/L (98-107) Carbon Dioxide Level 29 mmol/L (21-32) Anion Gap 8 (6-14) Blood Urea Nitrogen 9 mg/dL (7-20) Creatinine 1.1 mg/dL (0.6-1.0) Estimated GFR (Cockcroft-Gault) 48.8 Glucose Level 107 mg/dL (70-99) Calcium Level 8.8 mg/dL (8.5-10.1) Phosphorus Level 3.6 mg/dL (2.6-4.7) Albumin 3.0 g/dL (3.4-5.0) Test 06/20/18 11:23 Glucose (Fingerstick) 130 mg/dL (70-99) Medications Current Medications Furosemide (Lasix) 40 mg 1X ONCE IVP Last administered on 06/18/18 14:59; Start 06/18/18 at 14:00; Stop 06/18/18 at 14:47; Status DC Aspirin (Children'S Aspirin) 324 mg 1X ONCE PO Last administered on 06/18/18 14:59; Start 06/18/18 at 14:00; Stop 06/18/18 at 14:47; Status DC Potassium Chloride (KCl Oral Soln) 40 meq 1X ONCE PO Last administered on 14:59; Start 06/18/18 at 15:00; Stop 06/18/18 at 15:01; Status DC Furosemide (Lasix) 40 mg DAILY IVP ; Start 06/19/18 at 09:00; Stop 06/19/18 at 09: 00; Status DC Furosemide (Lasix) 40 mg BID94 IVP ; Start 06/19/18 at 09:00; Stop 06/19/18 at 09: 00; Status DC Lisinopril (Prinivil) 2.5 mg DAILY PO Last administered on 06/19/18at 09:42; Start 06/19/18 at 09:00 Furosemide (Lasix) 40 mg BID92 IV Last administered on 06/20/18at 11:57; Start at 16:00 Spironolactone (Aldactone) 25 mg DAILY PO Last administered on 06/20/18at 12:46; Start 06/19/18 at 09:00 Heparin Sodium (Porcine) (Heparin Sodium) 5,000 unit Q12HR SQ Last administered on 06/20/18at 09:01; Start 06/18/18 at 16:00 Sodium Chloride (Normal Saline Flush) 3 ml QSHIFT PRN IV AFTER MEDS AND BLOOD DRAWS; Start 06/18/18 at 16:00 Ondansetron HCl (Zofran) 4 mg PRN Q4HRS PRN IV NAUSEA/VOMITING; Start 06/18/18 at 16:00 Acetaminophen (Tylenol) 650 mg PRN Q4HRS PRN PO TEMP OVER 100.4F OR MILD PAIN; Start 06/18/18 at 16:00 Sodium Monofluorophosphate (Fleet Adult) 133 ml PRN DAILY PRN [place] CONSTIPATION; Start 06/18/18 at 16:00 Diphenhydramine HCl (Benadryl) 25 mg PRN Q4HRS PRN IVP ITCHING Last administered on 06/19/18 09:31; Start 06/18/18 at 16:00 Docusate Sodium (Colace) 100 mg PRN BID PRN PO CONSTIPATION; Start 06/18/18 at 16:00 Albuterol Sulfate (Ventolin Neb Soln) 2.5 mg PRN Q4HRS PRN NEB SHORTNESS OF BREATH; Start 06/18/18 at 16:00 Albuterol/ Ipratropium (Duoneb) 3 ml Q4HRS NEB Last administered on 06/20/18 11 :38; Start 06/18/18 at 16:00 Aspirin (Ecotrin) 81 mg DAILY08 PO Last administered on 06/20/18 08:45; Start 06/19/18 at 08:00 Levothyroxine Sodium (Synthroid) 88 mcg DAILY08 PO Last administered on 08:46; Start 06/19/18 at 08:00 Latanoprost (Xalatan) 1 drop QHS OU Last administered on 06/19/18 20:24; Start 06/18/18 at 21:00 Potassium Chloride (KCl Oral Soln) 40 meq 1X ONCE PO Last administered on 13:43; Start 06/19/18 at 13:00; Stop 06/19/18 at 13:01; Status DC Insulin Glargine (Lantus) 5 units QHS SQ Last administered on 06/19/18 20:24; Start 06/19/18 at 21:00 Insulin Human Lispro (HumaLOG) 0-5 UNITS TIDWMEALS SQ Last administered on 13:37; Start 06/19/18 at 12:30 Dextrose (Dextrose 50%-Water Syringe) 12.5 gm PRN Q15MIN PRN IV SEE COMMENTS; Start 06/19/18 at 12:15 Active Scripts Active Reported Aspir-Low (Aspirin) 81 Mg Tablet.dr 1 Tab PO DAILY Triamterene-Hctz 37.5-25 Mg Cp (Triamterene/Hydrochlorothiazid) 1 Each Capsule 1 Cap PO DAILY Synthroid (Levothyroxine Sodium) 88 Mcg Tablet 1 Tab PO DAILY Latanoprost 2.5 Ml Drops 1 Drop [facility]YE [facility] Vitals/I & O Vital Sign - Last 24 Hours 06/19/18 06/19/18 06/19/18 06/19/18 15:00 15:30 19:05 19:40 Temp 97.9 98.2 97.9 98.2 Pulse 90 87 Resp 18 19 B/P (MAP) 105/59 (74) 101/55 (70) Pulse Ox 96 96 97 O2 Delivery Nasal Cannula Nasal Cannula Nasal Cannula Nasal Cannula O2 Flow Rate 4.0 5.0 4.0 4.0 06/19/18 06/19/18 06/20/18 06/20/18 20:15 23:45 00:13 03:56 Temp 97.8 97.7 97.8 97.7 Pulse 84 83 Resp 22 9 B/P (MAP) 94/50 (65) 102/70 (81) Pulse Ox 96 96 96 96 O2 Delivery Nasal Cannula Nasal Cannula Nasal Cannula Nasal Cannula O2 Flow Rate 5.0 4.0 5.0 4.0 06/20/18 06/20/18 06/20/18 06/20/18 04:35 07:33 07:57 08:00 Temp 97.9 97.9 Pulse 85 Resp 18 B/P (MAP) 96/66 (76) Pulse Ox 96 97 98 O2 Delivery Nasal Cannula Nasal Cannula Nasal Cannula Nasal Cannula O2 Flow Rate 5.0 4.0 4.0 4.0 06/20/18 06/20/18 06/20/18 09:00 11:39 11:40 Temp 98.4 98.4 Pulse 90 85 Resp 18 B/P (MAP) 98/57 104/62 (76) Pulse Ox 95 O2 Delivery Nasal Cannula Nasal Cannula O2 Flow Rate 3.0 4.0 Intake and Output 06/19/18 06/19/18 06/20/18 15:00 23:00 07:00 Intake Total 400 ml 680 ml 500 ml Output Total 750 ml 250 ml 250 ml Balance -350 ml 430 ml 250 ml GIANA CUMMINS MD Jun 20, 2018 13:58
--- NOTE | 2018-06-20 14:27 | NUR ---
This nurse administered morning lasix and aldactone late. While passing morning medications, this nurse re-checked pt. BP. Right arm 75/40. This nurse assessed the pt. waited 10 minutes and tried again. Left arm 98/57. This nurse held medications and spoke with MD. MD told this nurse to give them one hour apart. Monitor the pt. and administer 1400 lasix at 1600. Will continue to monitor.
[2018-06-20 14:49] VITALS: BP 92/70
[2018-06-20 19:00] VITALS: BP 95/65
[2018-06-20] MEDS: LATANOPROST 0.005% OPHTH SOLUTION 2.5ML BOTTLE. OU SCH (20:16)
[2018-06-20] MEDS: INSULIN GLARGINE 300 UNITS/3 ML INSULN.PEN. SQ SCH (20:22)
[2018-06-20] MEDS: diphenhydrAMINE 50 MG/ML VIAL IVP PRN (23:27)
[2018-06-20 23:40] VITALS: BP 107/60
[2018-06-21] VITALS (9 sets, daily range): BP systolic 93–131; BP diastolic 54–74
[2018-06-21] MEDS: IPRATRPIUM/ALBUTEROL 0.5/2.5MG 3 ML NEBU. NEB SCH ×6 (03:20→22:46)
[2018-06-21] MEDS: LEVOTHYROXINE 88 MCG TABLET PO SCH (07:56)
[2018-06-21] MEDS: ASPIRIN ENTERIC COATED 81 MG TABLET.DR. PO SCH (07:56)
[2018-06-21] MEDS: INSULIN LISPRO 300 UNITS/3 ML INSULN.PEN. SQ SCH ×3 (08:00→17:00)
[2018-06-21] MEDS: diphenhydrAMINE 50 MG/ML VIAL IVP PRN (08:02)
[2018-06-21] MEDS: HEPARIN for SUB-Q USE 5,000 UNIT/ML VIAL. SQ SCH ×2 (08:15→21:24)
--- NOTE | 2018-06-21 08:29 | PDOC ---
PROGRESS NOTES Chief Complaint Chief Complaint Acute on chronic CHF with suspected diastolic dysfunction AECOPD/pulmonary HTN LE edema more to RLE with small superficial right posterior ulcer. suspecting PAD. Hypothyroidism Elevated bilirubin - constipated - bowel regimen Hypokalemia Chronic large mid back elevated lesion Morbid obesity with likely GÓMEZ Severe onychmycoses DM2 - A1c 7.9 History of Present Illness History of Present Illness Out having echocardiogram Chart reviewed On Synthroid-TSH 5 with unavailable T3-T4 PT recommends SNU Patient came from home Duplex bilateral lower extremity still pending On triamterene HCTZ at home but is on hold DNR Colleague says possible DC in the next 24-48 hrs. Plan: await from echo Social work also for SNU recs by PT Follow-up duplex bilateral lower extremity check T3-T4 Vitals Vitals Vital Signs Date Time Temp Pulse Resp B/P (MAP) Pulse Ox O2 Delivery O2 Flow Rate FiO2 06/21/18 07:00 97.5 89 20 98/74 (82) 95 Nasal Cannula 4.0 97.5 Physical Exam General: Alert, mild distress Heart: Regular rate, Normal S1, Normal S2 Lungs: Clear, Crackles Abdomen: Normal bowel sounds Extremities: No clubbing, No cyanosis, Other (erythema to bilateral LE more to left. superficioal ulcer to right posterior calf. ) Skin: No rashes, No breakdown, Other (patchy coolness to bilateral LE) Labs LABS Laboratory Tests Test 06/20/18 08:44 06/20/18 11:23 06/20/18 16:43 06/20/18 20:17 Glucose (Fingerstick) 147 mg/dL (70-99) 130 mg/dL (70-99) 140 mg/dL (70-99) 174 mg/dL (70-99) Test 06/21/18 07:22 Glucose (Fingerstick) 117 mg/dL (70-99) Review of Systems Review of Systems Out having echocardiogram Assessment and Plan Assessmemt and Plan Problems Medical Problems: (1) Congestive heart failure Status: Acute Comment Review of Relevant I have reviewed the following items rosangela (where applicable) has been applied. Labs Laboratory Tests Test 06/19/18 10:58 06/19/18 17:26 06/19/18 20:21 06/20/18 04:30 Glucose (Fingerstick) 163 mg/dL (70-99) 152 mg/dL (70-99) 147 mg/dL (70-99) Sodium Level 122 mmol/L (136-145) Potassium Level 3.5 mmol/L (3.5-5.1) Chloride Level 85 mmol/L (98-107) Carbon Dioxide Level 29 mmol/L (21-32) Anion Gap 8 (6-14) Blood Urea Nitrogen 9 mg/dL (7-20) Creatinine 1.1 mg/dL (0.6-1.0) Estimated GFR (Cockcroft-Gault) 48.8 Glucose Level 107 mg/dL (70-99) Calcium Level 8.8 mg/dL (8.5-10.1) Phosphorus Level 3.6 mg/dL (2.6-4.7) Albumin 3.0 g/dL (3.4-5.0) Test 06/20/18 08:44 06/20/18 11:23 06/20/18 16:43 06/20/18 20:17 Glucose (Fingerstick) 147 mg/dL (70-99) 130 mg/dL (70-99) 140 mg/dL (70-99) 174 mg/dL (70-99) Test 06/21/18 07:22 Glucose (Fingerstick) 117 mg/dL (70-99) Laboratory Tests Test 06/20/18 08:44 06/20/18 11:23 06/20/18 16:43 06/20/18 20:17 Glucose (Fingerstick) 147 mg/dL (70-99) 130 mg/dL (70-99) 140 mg/dL (70-99) 174 mg/dL (70-99) Test 06/21/18 07:22 Glucose (Fingerstick) 117 mg/dL (70-99) Medications Current Medications Furosemide (Lasix) 40 mg 1X ONCE IVP Last administered on 06/18/18 14:59; Start 06/18/18 at 14:00; Stop 06/18/18 at 14:47; Status DC Aspirin (Children'S Aspirin) 324 mg 1X ONCE PO Last administered on 06/18/18at 14:59; Start 06/18/18 at 14:00; Stop 06/18/18 at 14:47; Status DC Potassium Chloride (KCl Oral Soln) 40 meq 1X ONCE PO Last administered on at 14:59; Start 06/18/18 at 15:00; Stop 06/18/18 at 15:01; Status DC Furosemide (Lasix) 40 mg DAILY IVP ; Start 06/19/18 at 09:00; Stop 06/19/18 at 09: 00; Status DC Furosemide (Lasix) 40 mg BID94 IVP ; Start 06/19/18 at 09:00; Stop 06/19/18 at 09: 00; Status DC Lisinopril (Prinivil) 2.5 mg DAILY PO Last administered on 06/19/18 09:42; Start 06/19/18 at 09:00 Furosemide (Lasix) 40 mg BID92 IV Last administered on 06/20/18 16:01; Start at 16:00 Spironolactone (Aldactone) 25 mg DAILY PO Last administered on 06/20/18 12:46; Start 06/19/18 at 09:00 Heparin Sodium (Porcine) (Heparin Sodium) 5,000 unit Q12HR SQ Last administered on 06/21/18 08:15; Start 06/18/18 at 16:00 Sodium Chloride (Normal Saline Flush) 3 ml QSHIFT PRN IV AFTER MEDS AND BLOOD DRAWS; Start 06/18/18 at 16:00 Ondansetron HCl (Zofran) 4 mg PRN Q4HRS PRN IV NAUSEA/VOMITING; Start 06/18/18 at 16:00 Acetaminophen (Tylenol) 650 mg PRN Q4HRS PRN PO TEMP OVER 100.4F OR MILD PAIN; Start 06/18/18 at 16:00 Sodium Monofluorophosphate (Fleet Adult) 133 ml PRN DAILY PRN [place] CONSTIPATION; Start 06/18/18 at 16:00 Diphenhydramine HCl (Benadryl) 25 mg PRN Q4HRS PRN IVP ITCHING Last administered on 06/21/18 08:02; Start 06/18/18 at 16:00 Docusate Sodium (Colace) 100 mg PRN BID PRN PO CONSTIPATION; Start 06/18/18 at 16:00 Albuterol Sulfate (Ventolin Neb Soln) 2.5 mg PRN Q4HRS PRN NEB SHORTNESS OF BREATH; Start 06/18/18 at 16:00 Albuterol/ Ipratropium (Duoneb) 3 ml Q4HRS NEB Last administered on 06/21/18 03 :20; Start 06/18/18 at 16:00 Aspirin (Ecotrin) 81 mg DAILY08 PO Last administered on 06/21/18 07:56; Start 06/19/18 at 08:00 Levothyroxine Sodium (Synthroid) 88 mcg DAILY08 PO Last administered on 07:56; Start 06/19/18 at 08:00 Latanoprost (Xalatan) 1 drop QHS OU Last administered on 06/20/18 20:16; Start 06/18/18 at 21:00 Potassium Chloride (KCl Oral Soln) 40 meq 1X ONCE PO Last administered on 13:43; Start 06/19/18 at 13:00; Stop 06/19/18 at 13:01; Status DC Insulin Glargine (Lantus) 5 units QHS SQ Last administered on 06/20/18 20:22; Start 06/19/18 at 21:00 Insulin Human Lispro (HumaLOG) 0-5 UNITS TIDWMEALS SQ Last administered on 13:37; Start 06/19/18 at 12:30 Dextrose (Dextrose 50%-Water Syringe) 12.5 gm PRN Q15MIN PRN IV SEE COMMENTS; Start 06/19/18 at 12:15 Active Scripts Active Reported Aspir-Low (Aspirin) 81 Mg Tablet.dr 1 Tab PO DAILY Triamterene-Hctz 37.5-25 Mg Cp (Triamterene/Hydrochlorothiazid) 1 Each Capsule 1 Cap PO DAILY Synthroid (Levothyroxine Sodium) 88 Mcg Tablet 1 Tab PO DAILY Latanoprost 2.5 Ml Drops 1 Drop EACHEYE QHS Vitals/I & O Vital Sign - Last 24 Hours 06/20/18 06/20/18 06/20/18 06/20/18 09:00 11:39 11:40 14:49 Temp 98.4 97.8 98.4 97.8 Pulse 90 85 92 Resp 18 18 B/P (MAP) 98/57 104/62 (76) 92/70 (77) Pulse Ox 95 97 O2 Delivery Nasal Cannula Nasal Cannula Nasal Cannula O2 Flow Rate 3.0 4.0 4.0 06/20/18 06/20/18 06/20/18 06/20/18 16:07 19:00 20:15 20:55 Temp 97.8 97.8 Pulse 86 Resp 19 B/P (MAP) 95/65 (75) Pulse Ox 97 92 O2 Delivery Nasal Cannula Nasal Cannula Nasal Cannula Nasal Cannula O2 Flow Rate 3.0 4.0 4.0 3.0 06/20/18 06/20/18 06/21/18 06/21/18 23:40 23:55 03:00 03:20 Temp 97.9 97.5 97.9 97.5 Pulse 85 74 Resp 17 17 B/P (MAP) 107/60 (76) 112/64 (80) Pulse Ox 96 98 O2 Delivery Nasal Cannula Nasal Cannula Nasal Cannula Nasal Cannula O2 Flow Rate 4.0 3.0 4.0 3.0 06/21/18 07:00 Temp 97.5 97.5 Pulse 89 Resp 20 B/P (MAP) 98/74 (82) Pulse Ox 95 O2 Delivery Nasal Cannula O2 Flow Rate 4.0 Intake and Output 06/20/18 06/20/18 06/21/18 14:59 22:59 06:59 Intake Total 90 ml 360 ml 500 ml Output Total 650 ml 300 ml 900 ml Balance -560 ml 60 ml -400 ml JULIUS ENGEL MD Jun 21, 2018 08:29
--- NOTE | 2018-06-21 08:34 | RAD ---
Bilateral lower extremity arterial ultrasound History: Leg edema, pain, erythema, peripheral arterial disease Findings: Multiple grayscale, color, and duplex spectral analysis sonographic images were acquired of the lower extremity arteries bilaterally. There are no previous similar exams. There are diffuse abnormal monophasic waveforms throughout the lower extremity arteries bilaterally. Right posterior tibial and peroneal arteries are not visualized. Left peroneal artery is not visualized. Velocities in cm/sec: RIGHT Common femoral artery 72 Profunda femoris artery 41 Proximal SFA 67 Mid SFA 69 Distal SFA 95 Popliteal artery 45 Anterior tibial artery 49 Dorsalis pedis artery 22 Posterior tibial artery not seen Peroneal artery not seen LEFT: Common femoral artery 57 Profunda femoris artery 43 Proximal SFA 22 Mid SFA 42 Distal SFA 53 Popliteal artery 32 Anterior tibial artery 30 Dorsalis pedis artery 22 Posterior tibial artery 31 proximally and distally Peroneal artery not seen Impression: 1. There are diffuse abnormal monophasic waveforms of the lower extremity arteries bilaterally, likely component of inflow disease. There is diffuse plaque bilaterally. Right posterior tibial and bilateral peroneal arteries are not seen and likely occluded. Electronically signed by: Matt James MD (06/21/2018 8:31 AM) [place] [id number]
--- NOTE | 2018-06-21 09:23 | CARD ---
MR#: [id number] Date of Study: 06/21/2018 Ordering Physician: NURA BELL, Referring Physician: DA MCADAMS Tech: Yecenia Alexander RDCS APPROVED REPORT EXAM: Two-dimensional and M-mode echocardiogram with Doppler and color Doppler. Other Information Quality : AverageHR: 90bpm Rhythm : NSR INDICATION Congestive Heart Failure 2D DIMENSIONS RVDd3.3 (2.9-3.5cm)Left Atrium(2D)4.0 (1.6-4.0cm) IVSd1.1 (0.7-1.1cm)Aortic Root(2D)2.7 (2.0-3.7cm) LVDd5.8 (3.9-5.9cm)LVOT Diameter2.0 (1.8-2.4cm) PWd1.0 (0.7-1.1cm)LVDs5.0 (2.5-4.0cm) FS (%) 14.2 %SV49.9 ml LVEF(%)25.0 (>50%) M-Mode DIMENSIONS Left Atrium(MM)3.91 (2.5-4.0cm)Aortic Root2.88 (2.2-3.7cm) Aortic Valve AoV Peak Quan.319.8cm/sAoV VTI54.9cm AO Peak GR.40.9mmHgLVOT Peak Quan.86.5cm/s AO Mean GR.25mmHgAVA (VMAX)0.85cm2 JOHN (VTI)0.90cm2 Mitral Valve MV E Gbgpkobz891.7cm/sMV E Peak Gr.8mmHg MV DECEL [id number] A Umegmxjy78.4cm/s MV E Mean Gr.3mmHgE/A Ratio2.1 MV A [id number] Pulmonary Valve PV Peak Groxrlkr823.4cm/s Tricuspid Valve TR P. Fvgufyav203us/sRAP [id number] TR Peak Gr.64qoZbNQDI97lyKc LEFT VENTRICLE The Left Ventricle is borderline dilated. There is borderline to mild concentric left ventricular hyp ertrophy. The left ventricular systolic function is severely impaired. The Ejection Fraction is 20-25 %. There is global hypokinesis of the left ventricle. Transmitral Doppler flow pattern is Grade III-r eversible restrictive diastolic dysfunction. RIGHT VENTRICLE The right ventricle is normal size. There is normal right ventricular wall thickness. The right ventr icular systolic function is normal. ATRIA The left atrium is mildly dilated. The right atrium is mildly dilated. The interatrial septum is inta ct with no evidence for an atrial septal defect or patent foramen ovale as noted on 2-D or Doppler im aging. AORTIC VALVE The aortic valve is trileaflet. The aortic valve is moderately calcified. Doppler and Color Flow reve aled no significant aortic regurgitation. There is moderate valvular aortic stenosis. Calculated aort ic valve area is 0.9 cm2 with maximum pressure gradient of 41 mmHg and mean pressure gradient of 26 m mHg. MITRAL VALVE The mitral valve leaflets are thickened and calcified. There is no evidence of mitral valve prolapse. There is no mitral valve stenosis. Doppler and Color-flow revealed moderate mitral regurgitation. TRICUSPID VALVE The tricuspid valve is normal in structure and function. Doppler and Color Flow revealed mild to mode rate tricuspid regurgitation. There is moderate pulmonary hypertension. The PA pressure was estimated at 61 mmHg. There is no tricuspid valve prolapse or vegetation. There is no tricuspid valve stenosis . PULMONIC VALVE The pulmonic valve is not well visualized. GREAT VESSELS The aortic root is normal in size. The ascending aorta is normal in size. The IVC is dilated and maria esther apses <50% with inspiration. PERICARDIAL EFFUSION There is no evidence of significant pericardial effusion. Critical Notification Critical Value: No <Conclusion> The left ventricular systolic function is severely impaired. The Ejection Fraction is 20-25%. Transmitral Doppler flow pattern is Grade III-reversible restrictive diastolic dysfunction. Moderate valvular aortic stenosis. Moderate mitral regurgitation. Mild to moderate tricuspid regurgitation. There is moderate pulmonary hypertension. The PA pressure was estimated at 61 mmHg. There is no evidence of significant pericardial effusion. Signed by : Quinton Bae, Electronically Approved : 06/21/2018 09:22:44
[2018-06-21 10:08] LABS: FREE T4 0.99 ng/dL (0.76-1.46)
[2018-06-21] MEDS: CLINDAMYCIN 600MG PREMIX 50 ML IV SCH ×3 (10:18→21:13)
[2018-06-21] MEDS: SPIRONOLACTONE 25 MG TABLET PO SCH (10:30)
[2018-06-21] MEDS: LISINOPRIL 5 MG TABLET. PO SCH (10:32)
--- NOTE | 2018-06-21 11:32 | NUR ---
Wound Care Wound care consult for wound to right posterior lower leg. No open wounds noted, 2 dry scabs found on calf and posterior ankle. Painted with skin prep, recommend moisturizer daily. Pt BLE are reddened with petechia at forefoot and around great toes and pulses very faint or non-existent with Doppler. Vascular studies already ordered. No other wounds noted at time of assessment. WC will sign off at this time please reconsult if new wounds develop.
--- NOTE | 2018-06-21 11:50 | NUR ---
SS following for discharge planning. SS reviewed pt chart. Pt is from home and is currently requiring oxygen. PT recommended fci unit. SS met with pt to discuss fci unit and discharge planning. Pt adamantly declining fci unit stating that she needs to return to home. Pt agreeable to home healthcare. Barbara from [facility], ; fax [phone], met with pt to discuss home healthcare. Pt agreeable to home healthcare with [facility] at discharge. Pt's RN notified.
--- NOTE | 2018-06-21 13:15 | PDOC2 ---
CONSULT Date of Consult Date of Consult DATE: 06/21/18 TIME: 12:46 History of Present Illness Reason for Visit: This is a pleasant 73 year old female with history of CHF, HTN, right knee surgery, left ankle surgery, COPD and tobacco abuse who is being treated for CHF exacerbation. She had an arterial duplex done with shows bilateral monophasic waveforms throughout her legs, her right PT and bilateral peroneals were not visualized on duplex suggesting chronic occlusion. The patient reports only being able to walk about "3 feet" before having to stop and rest due to an achy pain and tired feeling in her calves. She can walk across a room reportedly. This has progressively worsened over the past year, about 5-6 months ago it really started limiting her activity. She denies leg pain at night or while sleeing, she denies any foot wounds, denies numbness, tingling. She has a history of smoking for about 50 years, one pack per day, quitting several years ago. She denies history of stroke, denies having carotid scan in past. She does have a family history of myocardial infarction and stroke. She takes a daily baby aspirin. Past Medical History Cardiovascular: CHF, HTN Pulmonary: COPD CENTRAL NERVOUS SYSTEM: Other (No pertinent history) GI: No pertinent hx Heme/Onc: No pertinent hx Hepatobiliary: No pertinent hx Psych: No pertinent hx Musculoskeletal: Osteoarthritis Rheumatologic: No pertinent hx Infectious disease: No pertinent hx ENT: No pertinent hx Renal/: No pertinent hx Endocrine: Hypothyroidism Dermatology: Other (large mid back lesion irregular no redness that she had for 50 yrs, no drain or redness currently; right calf superficial ulcer small. ) Past Surgical History Past Surgical History: Total knee replacement Family History Family History Mother - [place] Maternal aunt - [place] Maternal grandmother - CVA Family History: Other (reviewed and found negative noncontributory to the present) Social History No ALCOHOL: none Drugs: None Lives: with Family (she takes care of her mother at home) Current Problem List Problem List Problems Medical Problems: (1) Congestive heart failure Status: Acute Current Medications Current Medications Current Medications Furosemide (Lasix) 40 mg 1X ONCE IVP Last administered on 06/18/18at 14:59; Start 06/18/18 at 14:00; Stop 06/18/18 at 14:47; Status DC Aspirin (Children'S Aspirin) 324 mg 1X ONCE PO Last administered on 06/18/18 14:59; Start 06/18/18 at 14:00; Stop 06/18/18 at 14:47; Status DC Potassium Chloride (KCl Oral Soln) 40 meq 1X ONCE PO Last administered on 14:59; Start 06/18/18 at 15:00; Stop 06/18/18 at 15:01; Status DC Furosemide (Lasix) 40 mg DAILY IVP ; Start 06/19/18 at 09:00; Stop 06/19/18 at 09: 00; Status DC Furosemide (Lasix) 40 mg BID94 IVP ; Start 06/19/18 at 09:00; Stop 06/19/18 at 09: 00; Status DC Lisinopril (Prinivil) 2.5 mg DAILY PO Last administered on 06/21/18 10:32; Start 06/19/18 at 09:00 Furosemide (Lasix) 40 mg BID92 IV Last administered on 06/20/18 16:01; Start at 16:00 Spironolactone (Aldactone) 25 mg DAILY PO Last administered on 06/21/18 10:30; Start 06/19/18 at 09:00 Heparin Sodium (Porcine) (Heparin Sodium) 5,000 unit Q12HR SQ Last administered on 06/21/18 08:15; Start 06/18/18 at 16:00 Sodium Chloride (Normal Saline Flush) 3 ml QSHIFT PRN IV AFTER MEDS AND BLOOD DRAWS; Start 06/18/18 at 16:00 Ondansetron HCl (Zofran) 4 mg PRN Q4HRS PRN IV NAUSEA/VOMITING; Start 06/18/18 at 16:00 Acetaminophen (Tylenol) 650 mg PRN Q4HRS PRN PO TEMP OVER 100.4F OR MILD PAIN; Start 06/18/18 at 16:00 Sodium Monofluorophosphate (Fleet Adult) 133 ml PRN DAILY PRN [place] CONSTIPATION; Start 06/18/18 at 16:00 Diphenhydramine HCl (Benadryl) 25 mg PRN Q4HRS PRN IVP ITCHING Last administered on 06/21/18 08:02; Start 06/18/18 at 16:00 Docusate Sodium (Colace) 100 mg PRN BID PRN PO CONSTIPATION; Start 06/18/18 at 16:00 Albuterol Sulfate (Ventolin Neb Soln) 2.5 mg PRN Q4HRS PRN NEB SHORTNESS OF BREATH; Start 06/18/18 at 16:00 Albuterol/ Ipratropium (Duoneb) 3 ml Q4HRS NEB Last administered on 06/21/18 11 :54; Start 06/18/18 at 16:00 Aspirin (Ecotrin) 81 mg DAILY08 PO Last administered on 06/21/18 07:56; Start 06/19/18 at 08:00 Levothyroxine Sodium (Synthroid) 88 mcg DAILY08 PO Last administered on 07:56; Start 06/19/18 at 08:00 Latanoprost (Xalatan) 1 drop QHS OU Last administered on 06/20/18 20:16; Start 06/18/18 at 21:00 Potassium Chloride (KCl Oral Soln) 40 meq 1X ONCE PO Last administered on 13:43; Start 06/19/18 at 13:00; Stop 06/19/18 at 13:01; Status DC Insulin Glargine (Lantus) 5 units QHS SQ Last administered on 06/20/18 20:22; Start 06/19/18 at 21:00 Insulin Human Lispro (HumaLOG) 0-5 UNITS TIDWMEALS SQ Last administered on 13:37; Start 06/19/18 at 12:30 Dextrose (Dextrose 50%-Water Syringe) 12.5 gm PRN Q15MIN PRN IV SEE COMMENTS; Start 06/19/18 at 12:15 Clindamycin Phosphate 50 ml @ 100 mls/hr Q8HRS IV Last administered on 10:18; Start 06/21/18 at 10:00 Active Scripts Active Reported Aspir-Low (Aspirin) 81 Mg Tablet. 1 Tab PO DAILY Triamterene-Hctz 37.5-25 Mg Cp (Triamterene/Hydrochlorothiazid) 1 Each Capsule 1 Cap PO DAILY Synthroid (Levothyroxine Sodium) 88 Mcg Tablet 1 Tab PO DAILY Latanoprost 2.5 Ml Drops 1 Drop EACHEYE QHS Allergies Allergies: Coded Allergies: Penicillins (Verified Allergy, Intermediate, 06/18/18) ROS General: No: Chills, Appetite Hematological and Lymphatic: No: Bleeding Problems, Blood Clots, Brusing Respiratory: YES: Orthopnea, SOB with excertion; No: Cough, Hemoptysis, Shortness of breath Cardiovascular: yes Paroxysmal Noc. Dyspnea; No Chest Pain, No Palpitations Gastrointestinal: No Nausea, No Vomiting, No Abdominal Pain, No Diarrhea Musculoskeletal: Yes Pain In: (legs); No Gait Disturbance Physical Exam General: Alert, Oriented X3, Cooperative, No acute distress Lungs: Normal air movement Heart: Regular rate Abdomen: Soft, No tenderness Extremities: Other (Bilateral femoral pulses 1+, cannot appreciate popliteal pulses bilaterally, 2+ DP pulses bilaterally, cannot appreciate PT pulses bilaterally. Difficult to assess doppler signals due to malfunctioning machine. Cap refill about 4-5 sec bilaterally. Bilateral calf and pedal edema. Skin pink with mild mottling bilateral feet. ) Skin: No breakdown, Other (No foot wounds or ulcers noted. Small area of dry skin right lateral posterior ankle. ) Psych/Mental Status: Mental status NL, Mood NL Vitals VITALS Vital Signs Date Time Temp Pulse Resp B/P (MAP) Pulse Ox O2 Delivery O2 Flow Rate FiO2 06/21/18 11:54 90 Nasal Cannula 4.0 06/21/18 11:36 97/56 (70) 06/21/18 11:13 97.4 85 20 97.4 Labs Labs Laboratory Tests Test 06/19/18 17:26 06/19/18 20:21 06/20/18 04:30 06/20/18 08:44 Glucose (Fingerstick) 152 mg/dL (70-99) 147 mg/dL (70-99) 147 mg/dL (70-99) Sodium Level 122 mmol/L (136-145) Potassium Level 3.5 mmol/L (3.5-5.1) Chloride Level 85 mmol/L (98-107) Carbon Dioxide Level 29 mmol/L (21-32) Anion Gap 8 (6-14) Blood Urea Nitrogen 9 mg/dL (7-20) Creatinine 1.1 mg/dL (0.6-1.0) Estimated GFR (Cockcroft-Gault) 48.8 Glucose Level 107 mg/dL (70-99) Calcium Level 8.8 mg/dL (8.5-10.1) Phosphorus Level 3.6 mg/dL (2.6-4.7) Albumin 3.0 g/dL (3.4-5.0) Test 06/20/18 11:23 06/20/18 16:43 06/20/18 20:17 06/21/18 07:22 Glucose (Fingerstick) 130 mg/dL (70-99) 140 mg/dL (70-99) 174 mg/dL (70-99) 117 mg/dL (70-99) Test 06/21/18 08:50 06/21/18 11:29 Free Thyroxine 0.99 ng/dL (0.76-1.46) Free Triiodothyronine (T3) pg/mL 0.90 pg/mL (2.18-3.98) Glucose (Fingerstick) 145 mg/dL (70-99) Laboratory Tests Test 06/20/18 16:43 06/20/18 20:17 06/21/18 07:22 06/21/18 08:50 Glucose (Fingerstick) 140 mg/dL (70-99) 174 mg/dL (70-99) 117 mg/dL (70-99) Free Thyroxine 0.99 ng/dL (0.76-1.46) Free Triiodothyronine (T3) pg/mL 0.90 pg/mL (2.18-3.98) Test 06/21/18 11:29 Glucose (Fingerstick) 145 mg/dL (70-99) Assessment/Plan Assessment/Plan Atherosclerosis of bilateral lower extremities with claudication-- Pt with abnormal monophasic waveforms of bilateral lower extremities with possible occlusion of right PT and bilateral peroneal arteries via arterial duplex. This exam was limited due to edema. She does not have rest pain, open wounds, or signs of ischemia that would indicate an urgency to initiate further workup during this hospitalization. Based on exam she has adequate flow to her feet bilaterally with palpable DP pulses bilaterally. Would recommend optimizing medical management with aspirin and good diabetes control at this time, statin therapy if indicated. She can follow up with us in our office for LAURO's and evaluation in 2-3 weeks once recovered from acute condition and arteriogram can be discussed then. Vascular surgeon will see the patient as well. Thank you for consult. l Patient hx reviewed Patient examined 2+radial pulses bilaterally Absent femoral pulses bilaterally absent popliteal and pedal pulses bilaterally monophasic Doppler signal bilaterally The patient has evidence of vascular disease with absent pulses, however I do not think that leg pain that comes on with standing and walking 3 feet is vascular in nature Pt has decreased EF and CHF which is being treated. I believe additional vascular evaluation can be undertaken as an outpatient. She will follow up with us in a few weeks GABRIELLE ORTIZ Jun 21, 2018 13:15 ELSIE BEDOLLA MD Jun 21, 2018 17:11
[2018-06-21] MEDS: FUROSEMIDE 40 MG/4 ML VIAL. IV SCH ×2 (13:53→14:00)
--- NOTE | 2018-06-21 14:02 | PDOC ---
EKTA NOLASCO MD ALLERGY IMMUNOLOGY 06/21/18 1402: CARDIO Progress Notes Date and Time Date of Service 06/21/18 Time of Evaluation 1110 Subjective Subjective: No Chest Pain, No shortness of breath, Other (LE edema better but persists. c/o LE itching) Vitals Vitals Vital Signs Date Time Temp Pulse Resp B/P (MAP) Pulse Ox O2 Delivery O2 Flow Rate FiO2 06/21/18 11:54 90 Nasal Cannula 4.0 06/21/18 11:36 97/56 (70) 06/21/18 11:13 97.4 85 20 97.4 Weight Weight [ ] Input and Output Intake and Output Intake and Output 06/21/18 07:00 Intake Total 950 ml Output Total 1850 ml Balance -900 ml Intake Oral 950 ml Output Urine Total 1850 ml # Voids 1 Laboratory Labs Laboratory Tests Test 06/20/18 16:43 06/20/18 20:17 06/21/18 07:22 06/21/18 08:50 Glucose (Fingerstick) 140 mg/dL (70-99) 174 mg/dL (70-99) 117 mg/dL (70-99) Free Thyroxine 0.99 ng/dL (0.76-1.46) Free Triiodothyronine (T3) pg/mL 0.90 pg/mL (2.18-3.98) Test 06/21/18 11:29 Glucose (Fingerstick) 145 mg/dL (70-99) Physical Exam HEENT: Neck Supple W Full Motion Chest: Symmetric LUNGS: Clear to Auscultation Heart: S1S2, RRR Abdomen: Other (ascites) Extremities: Other (1-2+ bilateral LE edmea. LE erythema bilaterally) Neurology: alert, oriented, follow commands Assessment Assessment 1. Acute on chronic combine systolic/diastolic CHF; Echo showed LVEF 20-25% ( new finding) 2. AECOPD/pulmonary HTN, moderate. PAP 61mmHG 3. PAD; duplex notable for diffuse plaque bilaterally 4. LE edema with probable cellulitis 5. Hypothyroidism; 6. Hyponatremia 7. DM, II 8. Polyvalvular disease; moderate , MR, and TR Recommendations Diuresis Continue ASA. Add statin Will need further ischemic workup given new finding of significant CMP Consider outpatient arteriogram given PAD ALYSSIA PASCUAL MD 06/22/18 0900: CARDIO Progress Notes Plan Plan Late entry for 06/21/2018 Patient seen and examined. Case discussed with IAP DISPLAYS ANALYST. Continue tx for acute heart failure Plan for [facility] on . She is quite debilitated, may need rehab placement Discussed case with vascular surgery, plan for aortogram with [facility]. Thanks EKTA NOLASCO APRN Jun 21, 2018 14:02 ALYSSIA PASCUAL MD Jun 22, 2018 09:00
[2018-06-21] MEDS: LATANOPROST 0.005% OPHTH SOLUTION 2.5ML BOTTLE. OU SCH (21:12)
[2018-06-21] MEDS: LACTOBACILLUS RHAMNOSUS GG 1 CAPSULE. PO SCH (21:12)
[2018-06-21] MEDS: INSULIN GLARGINE 300 UNITS/3 ML INSULN.PEN. SQ SCH (21:25)
[2018-06-22] VITALS (18 sets, daily range): BP systolic 79–116; BP diastolic 45–75
[2018-06-22] MEDS: IPRATRPIUM/ALBUTEROL 0.5/2.5MG 3 ML NEBU. NEB SCH ×5 (03:06→19:43)
[2018-06-22] MEDS: CLINDAMYCIN 600MG PREMIX 50 ML IV SCH ×3 (05:21→22:07)
[2018-06-22] MEDS: INSULIN LISPRO 300 UNITS/3 ML INSULN.PEN. SQ SCH ×3 (08:00→17:00)
[2018-06-22] MEDS: FUROSEMIDE 40 MG/4 ML VIAL. IV SCH ×2 (08:41→16:54)
[2018-06-22] MEDS: SPIRONOLACTONE 25 MG TABLET PO SCH (09:00)
[2018-06-22] MEDS: LISINOPRIL 5 MG TABLET. PO SCH (09:00)
--- NOTE | 2018-06-22 09:17 | PDOC ---
PROGRESS NOTES Chief Complaint Chief Complaint Acute on chronic CHF with suspected diastolic dysfunction AECOPD/pulmonary HTN LE edema more to RLE with small superficial right posterior ulcer. 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 But we'll plan for outpatient arteriogram after all the acute CHF issues has resolved RN asks about plans for LHC-she has been keeping nothing by mouth She has very long toenails and hand nails her elites and blood pressure so far good Plan: continue IV Clinda LHC plans per cardiology? Home health on discharge instead of SNU vasc surgery follow-up as outpatient for outpatient arteriogram Recheck lites while on IV diuretic Consult podiatry regarding toenails dw RN at bedside Vitals Vitals Vital Signs Date Time Temp Pulse Resp B/P (MAP) Pulse Ox O2 Delivery O2 Flow Rate FiO2 06/22/18 08:36 86 114/75 (88) 06/22/18 08:18 95 Nasal Cannula 4.0 06/22/18 07:00 97.3 20 97.3 Physical Exam General: Alert, Oriented X3, Cooperative, No acute distress Heart: Regular rate Lungs: Clear, Crackles Abdomen: Soft, No tenderness Extremities: Other (Bilateral femoral pulses 1+, cannot appreciate popliteal pulses bilaterally, 2+ DP pulses bilaterally, cannot appreciate PT pulses bilaterally. Difficult to assess doppler signals due to malfunctioning machine. Cap refill about 4-5 sec bilaterally. Bilateral calf and pedal edema. Skin pink with mild mottling bilateral feet. ) Skin: No breakdown, Other (No foot wounds or ulcers noted. Small area of dry skin right lateral posterior ankle. ) Labs LABS Laboratory Tests Test 06/21/18 11:29 06/21/18 16:34 06/21/18 21:11 06/22/18 08:07 Glucose (Fingerstick) 145 mg/dL (70-99) 125 mg/dL (70-99) 134 mg/dL (70-99) 127 mg/dL (70-99) Review of Systems Review of Systems SOA on ambulation with PT, no chest pain, some leg pains, no abdominal issues Assessment and Plan Assessmemt and Plan Problems Medical Problems: (1) Congestive heart failure Status: Acute Comment Review of Relevant I have reviewed the following items rosangela (where applicable) has been applied. Labs Laboratory Tests Test 06/20/18 11:23 06/20/18 16:43 06/20/18 20:17 06/21/18 07:22 Glucose (Fingerstick) 130 mg/dL (70-99) 140 mg/dL (70-99) 174 mg/dL (70-99) 117 mg/dL (70-99) Test 06/21/18 08:50 06/21/18 11:29 06/21/18 16:34 06/21/18 21:11 Free Thyroxine 0.99 ng/dL (0.76-1.46) Free Triiodothyronine (T3) pg/mL 0.90 pg/mL (2.18-3.98) Glucose (Fingerstick) 145 mg/dL (70-99) 125 mg/dL (70-99) 134 mg/dL (70-99) Test 06/22/18 08:07 Glucose (Fingerstick) 127 mg/dL (70-99) Laboratory Tests Test 06/21/18 11:29 06/21/18 16:34 06/21/18 21:11 06/22/18 08:07 Glucose (Fingerstick) 145 mg/dL (70-99) 125 mg/dL (70-99) 134 mg/dL (70-99) 127 mg/dL (70-99) Medications Current Medications Furosemide (Lasix) 40 mg 1X ONCE IVP Last administered on 06/18/18at 14:59; Start 06/18/18 at 14:00; Stop 06/18/18 at 14:47; Status DC Aspirin (Children'S Aspirin) 324 mg 1X ONCE PO Last administered on 06/18/18at 14:59; Start 06/18/18 at 14:00; Stop 06/18/18 at 14:47; Status DC Potassium Chloride (KCl Oral Soln) 40 meq 1X ONCE PO Last administered on 14:59; Start 06/18/18 at 15:00; Stop 06/18/18 at 15:01; Status DC Furosemide (Lasix) 40 mg DAILY IVP ; Start 06/19/18 at 09:00; Stop 06/19/18 at 09: 00; Status DC Furosemide (Lasix) 40 mg BID94 IVP ; Start 06/19/18 at 09:00; Stop 06/19/18 at 09: 00; Status DC Lisinopril (Prinivil) 2.5 mg DAILY PO Last administered on 06/21/18 10:32; Start 06/19/18 at 09:00 Furosemide (Lasix) 40 mg BID92 IV Last administered on 06/22/18 08:41; Start at 16:00 Spironolactone (Aldactone) 25 mg DAILY PO Last administered on 06/21/18 10:30; Start 06/19/18 at 09:00 Heparin Sodium (Porcine) (Heparin Sodium) 5,000 unit Q12HR SQ Last administered on 06/21/18 21:24; Start 06/18/18 at 16:00 Sodium Chloride (Normal Saline Flush) 3 ml QSHIFT PRN IV AFTER MEDS AND BLOOD DRAWS; Start 06/18/18 at 16:00 Ondansetron HCl (Zofran) 4 mg PRN Q4HRS PRN IV NAUSEA/VOMITING; Start 06/18/18 at 16:00 Acetaminophen (Tylenol) 650 mg PRN Q4HRS PRN PO TEMP OVER 100.4F OR MILD PAIN; Start 06/18/18 at 16:00 Sodium Monofluorophosphate (Fleet Adult) 133 ml PRN DAILY PRN [place] CONSTIPATION; Start 06/18/18 at 16:00 Diphenhydramine HCl (Benadryl) 25 mg PRN Q4HRS PRN IVP ITCHING Last administered on 06/21/18 08:02; Start 06/18/18 at 16:00 Docusate Sodium (Colace) 100 mg PRN BID PRN PO CONSTIPATION; Start 06/18/18 at 16:00 Albuterol Sulfate (Ventolin Neb Soln) 2.5 mg PRN Q4HRS PRN NEB SHORTNESS OF BREATH; Start 06/18/18 at 16:00 Albuterol/ Ipratropium (Duoneb) 3 ml Q4HRS NEB Last administered on 06/22/18 08 :18; Start 06/18/18 at 16:00 Aspirin (Ecotrin) 81 mg DAILY08 PO Last administered on 06/21/18 07:56; Start 06/19/18 at 08:00 Levothyroxine Sodium (Synthroid) 88 mcg DAILY08 PO Last administered on 07:56; Start 06/19/18 at 08:00 Latanoprost (Xalatan) 1 drop QHS OU Last administered on 06/21/18 21:12; Start 06/18/18 at 21:00 Potassium Chloride (KCl Oral Soln) 40 meq 1X ONCE PO Last administered on 13:43; Start 06/19/18 at 13:00; Stop 06/19/18 at 13:01; Status DC Insulin Glargine (Lantus) 5 units QHS SQ Last administered on 06/21/18 21:25; Start 06/19/18 at 21:00 Insulin Human Lispro (HumaLOG) 0-5 UNITS TIDWMEALS SQ Last administered on 13:37; Start 06/19/18 at 12:30 Dextrose (Dextrose 50%-Water Syringe) 12.5 gm PRN Q15MIN PRN IV SEE COMMENTS; Start 06/19/18 at 12:15 Clindamycin Phosphate 50 ml @ 100 mls/hr Q8HRS IV Last administered on 05:21; Start 06/21/18 at 10:00 Lactobacillus Rhamnosus (Culturelle) 1 cap BID PO Last administered on 21:12; Start 06/21/18 at 21:00 Active Scripts Active Reported Aspir-Low (Aspirin) 81 Mg Tablet.dr 1 Tab PO DAILY Triamterene-Hctz 37.5-25 Mg Cp (Triamterene/Hydrochlorothiazid) 1 Each Capsule 1 Cap PO DAILY Synthroid (Levothyroxine Sodium) 88 Mcg Tablet 1 Tab PO DAILY Latanoprost 2.5 Ml Drops 1 Drop EACHEYE QHS Vitals/I & O Vital Sign - Last 24 Hours 06/21/18 06/21/18 06/21/18 4/8/19 10:32 11:13 11:36 11:54 Temp 97.4 97.4 Pulse 89 85 Resp 20 B/P (MAP) 133/81 100/64 (76) 97/56 (70) Pulse Ox 95 90 O2 Delivery Nasal Cannula Nasal Cannula O2 Flow Rate 4.0 4.0 06/21/18 06/21/18 06/21/18 06/21/18 14:01 15:04 16:37 19:33 Temp 97.8 97.8 Pulse 83 Resp 20 B/P (MAP) 131/64 (86) 131/64 (86) Pulse Ox 95 95 O2 Delivery Nasal Cannula Nasal Cannula Nasal Cannula O2 Flow Rate 4.0 3.0 3.0 06/21/18 06/21/18 06/21/18 06/21/18 19:50 19:55 22:46 22:53 Temp 97.8 97.7 97.8 97.7 Pulse 88 80 Resp 20 18 B/P (MAP) 128/67 (87) 93/54 (67) Pulse Ox 96 96 97 O2 Delivery Nasal Cannula Nasal Cannula Nasal Cannula Nasal Cannula O2 Flow Rate 3.0 4.0 3.0 4.0 06/22/18 06/22/18 06/22/18 06/22/18 02:32 03:06 07:00 08:18 Temp 98.0 97.3 98.0 97.3 Pulse 80 85 Resp 18 20 B/P (MAP) 116/68 (84) 105/55 (72) Pulse Ox 97 95 O2 Delivery Nasal Cannula Nasal Cannula Nasal Cannula Nasal Cannula O2 Flow Rate 4.0 3.0 3.0 4.0 06/22/18 08:36 Pulse 86 B/P (MAP) 114/75 (88) Intake and Output 06/21/18 06/21/18 06/22/18 15:00 23:00 07:00 Intake Total 350 ml 100 ml Output Total 100 ml 875 ml 200 ml Balance -100 ml -525 ml -100 ml JULIUS ENGEL MD Jun 22, 2018 09:17
[2018-06-22] MEDS: LEVOTHYROXINE 88 MCG TABLET PO SCH (10:46)
[2018-06-22] MEDS: ASPIRIN ENTERIC COATED 81 MG TABLET.DR. PO SCH (10:46)
[2018-06-22] MEDS: LACTOBACILLUS RHAMNOSUS GG 1 CAPSULE. PO SCH ×2 (10:47→20:37)
[2018-06-22] MEDS: HEPARIN for SUB-Q USE 5,000 UNIT/ML VIAL. SQ SCH ×2 (10:58→20:39)
[2018-06-22] MEDS: MILRINONE 20MG/100ML PREMIX 100 ML IV PRN (13:20)
--- NOTE | 2018-06-22 16:32 | PDOC ---
CARDIOLOGY PROGRESS NOTE SUBJECTIVE: Patient reports improvement in her lower extremity edema. Denies any other acute issues. OBJECTIVE: Vital SIgns: Vital Signs Date Time Temp Pulse Resp B/P (MAP) Pulse Ox O2 Delivery O2 Flow Rate FiO2 06/22/18 15:51 95 Nasal Cannula 4.0 06/22/18 15:30 80 112/52 (72) 06/22/18 14:20 97.6 18 97.6 I & O Intake and Output 06/22/18 07:00 Intake Total 450 ml Output Total 1175 ml Balance -725 ml Intake Oral 400 ml IV Total 50 ml Output Urine Total 1175 ml Objective: On exam she still has redness of her bilateral lower extremities. She does have some decreased edema. Normal heart tones. Lungs with bilateral wheezing. CURRENT MEDICATIONS: Current Medications Medications (Trade) Dose Ordered Sig/Segundo Start Time Stop Time Status Last Admin Dose Admin Acetaminophen (Tylenol) 650 mg PRN Q4HRS PRN 06/18/18 16:00 Albuterol Sulfate (Ventolin Neb Soln) 2.5 mg PRN Q4HRS PRN 06/18/18 16:00 Albuterol/ Ipratropium (Duoneb) 3 ml Q4HRS 06/18/18 16:00 06/22/18 15:49 3 ML Aspirin (Children'S Aspirin) 324 mg 1X ONCE 06/18/18 14:00 06/18/18 14:47 DC 06/18/18 14:59 324 MG Aspirin (Ecotrin) 81 mg DAILY08 06/19/18 08:00 06/22/18 10:46 81 MG Clindamycin Phosphate 50 ml @ 100 mls/hr Q8HRS 06/21/18 10:00 06/22/18 13:31 100 MLS/HR Dextrose (Dextrose 50%-Water Syringe) 12.5 gm PRN Q15MIN PRN 06/19/18 12:15 Diphenhydramine HCl (Benadryl) 25 mg PRN Q4HRS PRN 06/18/18 16:00 06/21/18 08:02 25 MG Docusate Sodium (Colace) 100 mg PRN BID PRN 06/18/18 16:00 Furosemide (Lasix) 40 mg BID92 06/18/18 16:00 06/22/18 08:41 40 MG Heparin Sodium (Porcine) (Heparin Sodium) 5,000 unit Q12HR 06/18/18 16:00 06/22/18 10:58 5,000 UNIT Insulin Glargine (Lantus) 5 units QHS 06/19/18 21:00 06/21/18 21:25 5 UNITS Insulin Human Lispro (HumaLOG) 0-5 UNITS TIDWMEALS 06/19/18 12:30 06/19/18 13:37 2 UNITS Lactobacillus Rhamnosus (Culturelle) 1 cap BID 06/21/18 21:00 06/22/18 10:47 1 CAP Latanoprost (Xalatan) 1 drop QHS 06/18/18 21:00 06/21/18 21:12 1 DROP Levothyroxine Sodium (Synthroid) 88 mcg DAILY08 06/19/18 08:00 06/22/18 10:46 88 MCG Lisinopril (Prinivil) 2.5 mg DAILY 06/19/18 09:00 06/21/18 10:32 2.5 MG Milrinone Lactate/ Dextrose 100 ml @ 4.022 mls/ hr CONT PRN 06/22/18 13:00 06/22/18 13:20 4.022 MLS/HR Ondansetron HCl (Zofran) 4 mg PRN Q4HRS PRN 06/18/18 16:00 Potassium Chloride (KCl Oral Soln) 40 meq 1X ONCE 06/19/18 13:00 06/19/18 13:01 DC 06/19/18 13:43 40 MEQ Sodium Monofluorophosphate (Fleet Adult) 133 ml PRN DAILY PRN 06/18/18 16:00 Sodium Chloride (Normal Saline Flush) 3 ml QSHIFT PRN 06/18/18 16:00 Spironolactone (Aldactone) 25 mg DAILY 06/19/18 09:00 06/21/18 10:30 25 MG ASSESSMENT: 1. Acute on chronic systolic and diastolic heart failure with ejection fraction of 25%, new diagnosis 2. Probable peripheral arterial disease. PLAN: 1. Due to hypotension it has been difficult to diurese her aggressively. We will start low-dose milrinone therapy and continue Lasix therapy. Plan for a left heart catheterization and an aortogram tomorrow. 2. Check labs today in anticipation of procedure in a.m. NPO at midnight. Thanks ALYSSIA PASCUAL MD Jun 22, 2018 16:32
[2018-06-22 16:51] LABS: PROTHROMBIN TIME PATIENT 13.8 SEC (11.7-14.0)
[2018-06-22 16:54] LABS: CALCIUM 8.9 mg/dL (8.5-10.1); CREATININE 0.9 mg/dL (0.6-1.0); GFR 61.5; POTASSIUM 3.7 mmol/L (3.5-5.1)
[2018-06-22] MEDS: LATANOPROST 0.005% OPHTH SOLUTION 2.5ML BOTTLE. OU SCH (20:37)
[2018-06-22] MEDS: diphenhydrAMINE 50 MG/ML VIAL IVP PRN (20:43)
[2018-06-22] MEDS: INSULIN GLARGINE 300 UNITS/3 ML INSULN.PEN. SQ SCH (20:48)
[2018-06-23] VITALS (10 sets, daily range): BP systolic 79–111; BP diastolic 50–62
[2018-06-23] MEDS: IPRATRPIUM/ALBUTEROL 0.5/2.5MG 3 ML NEBU. NEB SCH ×7 (00:28→23:40)
--- NOTE | 2018-06-23 04:24 | NUR ---
Pt refuses to have IV in right AC changed out that was placed on 06/17.
[2018-06-23] MEDS: CLINDAMYCIN 600MG PREMIX 50 ML IV SCH ×3 (05:53→21:15)
[2018-06-23] MEDS: MILRINONE 20MG/100ML PREMIX 100 ML IV PRN (05:54)
[2018-06-23] MEDS ORDERED: LIDOCAINE 1% Multi-Dose 20 ML VIAL. ONE (06:35)
[2018-06-23] MEDS ORDERED: HEPARIN for ARTERIAL LINE 1,500 ML ONE (06:35)
[2018-06-23] MEDS ORDERED: IODIXANOL 320 MG/ML 100 ML VIAL. ONE ×2 (06:35→07:26)
[2018-06-23] MEDS ORDERED: VERAPAMIL 5 MG/2 ML VIAL. ONE (07:30)
[2018-06-23] MEDS ORDERED: HEPARIN for IV BOLUS 10,000 UNIT/10 ML VIAL. ONE (07:30)
[2018-06-23] MEDS ORDERED: NITROGLYCERIN 200 MCG/2 ML SYRINGE FOR CATH/VASC LAB. ONE (07:30)
[2018-06-23] MEDS ORDERED: MIDAZOLAM HCL/PF 2 MG/2 ML VIAL. ONE (07:30)
[2018-06-23] MEDS ORDERED: fentaNYL PF VIAL 100 MCG/2 ML VIAL ONE (07:30)
[2018-06-23] MEDS: INSULIN LISPRO 300 UNITS/3 ML INSULN.PEN. SQ SCH ×3 (08:00→17:00)
[2018-06-23] MEDS ORDERED: LIDOCAINE 1% Multi-Dose 20 ML VIAL. INJ ONE (08:15)
[2018-06-23] MEDS ORDERED: HEPARIN for IV BOLUS 10,000 UNIT/10 ML VIAL. IART ONE (08:15)
[2018-06-23] MEDS ORDERED: fentaNYL PF VIAL 100 MCG/2 ML VIAL IV ONE (08:15)
[2018-06-23] MEDS ORDERED: MIDAZOLAM HCL/PF 2 MG/2 ML VIAL. IV ONE (08:15)
[2018-06-23] MEDS ORDERED: IODIXANOL 320 MG/ML 100 ML VIAL. IART ONE (08:15)
[2018-06-23] MEDS ORDERED: NITROGLYCERIN 200 MCG/2 ML SYRINGE FOR CATH/VASC LAB. IART ONE (08:15)
[2018-06-23] MEDS ORDERED: VERAPAMIL 5 MG/2 ML VIAL. IART ONE (08:15)
[2018-06-23] MEDS ORDERED: CONTRAST GIVEN. MC PRN (08:30)
[2018-06-23] MEDS: LISINOPRIL 5 MG TABLET. PO SCH (09:00)
[2018-06-23] MEDS: HEPARIN for SUB-Q USE 5,000 UNIT/ML VIAL. SQ SCH ×2 (09:00→20:56)
[2018-06-23] MEDS: SPIRONOLACTONE 25 MG TABLET PO SCH (09:00)
--- NOTE | 2018-06-23 09:06 | CARD ---
MR#: [id number] Date of Study: 06/23/2018 Ordering Physician: ALYSSIA SOLANO, Referring Physician: DA MCADAMS, Tech: RT Jessica (R) APPROVED REPORT Technologist: Td Valencia RT (R) Nurse: Ledy Cifuentes R.N. Procedure(s) performed: moderate sedation: 52 minutes total dose: 206 Gycm2 fluoro time: 6.3 minutes contrast total: 99cc LHC, Coronary angiography HISTORY The patient is a 73 year-old female with a history of : hypertension, dyslipidemia. INDICATION The indication(s) include : dyspnea, severe heart failure. [facility] Clinical Frailty Scale [facility] Clinical Frailty Scale: Severely Frail Heart Failure Heart Failure: Yes If Yes, Newly Diagnosed: No If Yes, HF Type: Diastolic Systolic If Yes, NYHA Class: Class III PROCEDURE NARRATIVE INFORMED CONSENT: After explaining the risks and benefits of the procedure and alternatives, informed consent was obtained. The patient was brought electively to the cardiac catheterization lab. A timeout was performed confi rming the patient's name, date of , procedure, and site of procedure. All necessary personnel w ere wearing the appropriate protective equipment and radiation monitor devices. (See nursing notes for medications administered). ACCESS: The left wrist was sterilely prepped and draped in the usual fashion. The left wrist was infiltrated with 1 mL of 2% lidocaine for subcutaneous anesthesia. A 6 [place] [employer] Terumo glide sheath was inserted into the left radial artery without difficulty. CORONARY ANGIOGRAPHY: Right and left coronary angiography was performed using a 5 Fr JL 3.5 and JR4 catheters. Left ventr icular end diastolic pressure was obtained with a JR4 catheter and pullback was performed. All regla ter exchanges and advancements were performed over a guidewire. CLOSURE: At case completion the right radial sheath was removed and a Terumo radial band was applied with 13 m l of air. COMPLICATIONS: The patient tolerated the procedure well and there were no immediate complications. FINDINGS: HEMODYNAMICS: LVEDP 35 mm Hg No gradient on LV to aortic pullback. AO: 128/78 LEFT VENTRICULOGRAM: Deferred due to known severe cardiomyopathy by echo. CORONARY ANGIOGRAPHY: LM is a large caliber vessel with an ostial 20% stenosis and distal bifurcating 80% stenosis. LAD is a large caliber vessel with proximal to mid 90% stenosis. D1/D2 are small caliber vessels with mild luminal irregularities. LCx is a moderate caliber non-dominant vessel with a proximal 90% stenosis. OM1/OM2 are small caliber vessel with mild irregularities of up to 30%. RCA is a moderate caliber with a proximal occlusion. Large robust atrial collateral network supplies the distal vessel and the RPDA and RPL also fill via robust left to right collaterals. RPDA and RPL are small caliber vessels with normal angiographic appearance. Conclusion 1. Severely elevated left sided filling pressure consistent with acute on chronic decompensated systo lic and diastolic HF. LVEDP 35 mm Hg 2. Severe [place] three vessel coronary disease. Recommendations 1. Consultation for high risk CABG versus PCI (See seperate aortogram report for full details regardi ng PAD). Signed by : Alyssia Solano, Electronically Approved : 06/23/2018 09:05:31
[2018-06-23] MEDS: ASPIRIN ENTERIC COATED 81 MG TABLET.DR. PO SCH (09:28)
[2018-06-23] MEDS: LEVOTHYROXINE 88 MCG TABLET PO SCH (09:28)
[2018-06-23] MEDS: DOCUSATE SODIUM 100 MG CAPSULE. PO PRN (09:28)
[2018-06-23] MEDS: LACTOBACILLUS RHAMNOSUS GG 1 CAPSULE. PO SCH ×2 (09:28→20:38)
[2018-06-23] MEDS: ACETAMINOPHEN 325 MG TABLET. PO PRN (09:28)
[2018-06-23] MEDS: FUROSEMIDE 40 MG/4 ML VIAL. IV SCH ×2 (09:29→14:00)
--- NOTE | 2018-06-23 09:49 | PDOC ---
PROGRESS NOTES Chief Complaint Chief Complaint TRipple vessel Disease by [facility] 06/22/18 Severe ischemic CM with EF 30% Acute on chronic CHF AECOPD/pulmonary HTN LE edema more to RLE with small superficial right posterior ulcer. PAD, poor pulses - OP arteriogram Hypothyroidism TSH 5 with T4 at goal on synthroid constipated - bowel regimen Hypokalemia . corrected Morbid obesity with likely GÓMEZ Severe onychmycoses DM2 - A1c 7.9 History of Present Illness History of Present Illness left wrist splint Asks me about her [facility] results She is on the phone with no increase in SOA Plan: will be a poor candidate for CABG But T CVS might be consulted by cardiology Continue other cardiac CHF meds Podiatry to toenail clipping PT.OT - wants HH only not SNU Vitals Vitals Vital Signs Date Time Temp Pulse Resp B/P (MAP) Pulse Ox O2 Delivery O2 Flow Rate FiO2 06/23/18 08:33 83 22 94 Nasal Cannula 5.0 06/23/18 05:32 102/53 (69) 06/23/18 03:00 98.1 98.1 Physical Exam General: Alert, Oriented X3, Cooperative, No acute distress Heart: Regular rate Lungs: Clear, Crackles Abdomen: Soft, No tenderness Extremities: Other (Bilateral femoral pulses 1+, cannot appreciate popliteal pulses bilaterally, 2+ DP pulses bilaterally, cannot appreciate PT pulses bilaterally. Difficult to assess doppler signals due to malfunctioning machine. Cap refill about 4-5 sec bilaterally. Bilateral calf and pedal edema. Skin pink with mild mottling bilateral feet. ) Skin: No breakdown, Other (No foot wounds or ulcers noted. Small area of dry skin right lateral posterior ankle. ) Labs LABS Laboratory Tests Test 06/22/18 10:31 06/22/18 17:33 06/22/18 20:25 Glucose (Fingerstick) 125 mg/dL (70-99) 114 mg/dL (70-99) 138 mg/dL (70-99) Review of Systems Review of Systems no Increase SOA, no chest pain, no abdominal pain, no diarrhea Assessment and Plan Assessmemt and Plan Problems Medical Problems: (1) Congestive heart failure Status: Acute Comment Review of Relevant I have reviewed the following items rosangela (where applicable) has been applied. Labs Laboratory Tests Test 06/21/18 11:29 06/21/18 16:34 06/21/18 21:11 06/22/18 08:07 Glucose (Fingerstick) 145 mg/dL (70-99) 125 mg/dL (70-99) 134 mg/dL (70-99) 127 mg/dL (70-99) Test 06/22/18 08:28 06/22/18 10:31 06/22/18 17:33 06/22/18 20:25 Erythrocyte Sedimentation Rate 8 (0-25) Prothrombin Time 13.8 SEC (11.7-14.0) Prothromb Time International Ratio 1.1 (0.8-1.1) Sodium Level 121 mmol/L (136-145) Potassium Level 3.7 mmol/L (3.5-5.1) Chloride Level 84 mmol/L (98-107) Carbon Dioxide Level 30 mmol/L (21-32) Anion Gap 7 (6-14) Blood Urea Nitrogen 10 mg/dL (7-20) Creatinine 0.9 mg/dL (0.6-1.0) Estimated GFR (Cockcroft-Gault) 61.5 Glucose Level 110 mg/dL (70-99) Calcium Level 8.9 mg/dL (8.5-10.1) BN-Xpr-G-Type Natriuretic Peptide 32287 pg/mL (0-124) Glucose (Fingerstick) 125 mg/dL (70-99) 114 mg/dL (70-99) 138 mg/dL (70-99) Laboratory Tests Test 06/22/18 10:31 06/22/18 17:33 06/22/18 20:25 Glucose (Fingerstick) 125 mg/dL (70-99) 114 mg/dL (70-99) 138 mg/dL (70-99) Medications Current Medications Furosemide (Lasix) 40 mg 1X ONCE IVP Last administered on 06/18/18 14:59; Start 06/18/18 at 14:00; Stop 06/18/18 at 14:47; Status DC Aspirin (Children'S Aspirin) 324 mg 1X ONCE PO Last administered on 06/18/18 14:59; Start 06/18/18 at 14:00; Stop 06/18/18 at 14:47; Status DC Potassium Chloride (KCl Oral Soln) 40 meq 1X ONCE PO Last administered on at 14:59; Start 06/18/18 at 15:00; Stop 06/18/18 at 15:01; Status DC Furosemide (Lasix) 40 mg DAILY IVP ; Start 06/19/18 at 09:00; Stop 06/19/18 at 09: 00; Status DC Furosemide (Lasix) 40 mg BID94 IVP ; Start 06/19/18 at 09:00; Stop 06/19/18 at 09: 00; Status DC Lisinopril (Prinivil) 2.5 mg DAILY PO Last administered on 06/21/18 10:32; Start 06/19/18 at 09:00 Furosemide (Lasix) 40 mg BID92 IV Last administered on 06/23/18 09:29; Start 06/18/18 at 16:00 Spironolactone (Aldactone) 25 mg DAILY PO Last administered on 06/21/18 10:30; Start 06/19/18 at 09:00 Heparin Sodium (Porcine) (Heparin Sodium) 5,000 unit Q12HR SQ Last administered on 06/22/18 20:39; Start 06/18/18 at 16:00 Sodium Chloride (Normal Saline Flush) 3 ml QSHIFT PRN IV AFTER MEDS AND BLOOD DRAWS; Start 06/18/18 at 16:00 Ondansetron HCl (Zofran) 4 mg PRN Q4HRS PRN IV NAUSEA/VOMITING; Start 06/18/18 at 16:00 Acetaminophen (Tylenol) 650 mg PRN Q4HRS PRN PO TEMP OVER 100.4F OR MILD PAIN Last administered on 06/23/18 09:28; Start 06/18/18 at 16:00 Sodium Monofluorophosphate (Fleet Adult) 133 ml PRN DAILY PRN LA CONSTIPATION; Start 06/18/18 at 16:00 Diphenhydramine HCl (Benadryl) 25 mg PRN Q4HRS PRN IVP ITCHING Last administered on 06/22/18 20:43; Start 06/18/18 at 16:00 Docusate Sodium (Colace) 100 mg PRN BID PRN PO CONSTIPATION Last administered on 06/23/18 09:28; Start 06/18/18 at 16:00 Albuterol Sulfate (Ventolin Neb Soln) 2.5 mg PRN Q4HRS PRN NEB SHORTNESS OF BREATH; Start 06/18/18 at 16:00 Albuterol/ Ipratropium (Duoneb) 3 ml Q4HRS NEB Last administered on 06/23/18 04:02; Start 06/18/18 at 16:00 Aspirin (Ecotrin) 81 mg DAILY08 PO Last administered on 06/23/18 09:28; Start 06/19/18 at 08:00 Levothyroxine Sodium (Synthroid) 88 mcg DAILY08 PO Last administered on 09:28; Start 06/19/18 at 08:00 Latanoprost (Xalatan) 1 drop QHS OU Last administered on 06/22/18 20:37; Start 06/18/18 at 21:00 Potassium Chloride (KCl Oral Soln) 40 meq 1X ONCE PO Last administered on 13:43; Start 06/19/18 at 13:00; Stop 06/19/18 at 13:01; Status DC Insulin Glargine (Lantus) 5 units QHS SQ Last administered on 06/22/18 20:48; Start 06/19/18 at 21:00 Insulin Human Lispro (HumaLOG) 0-5 UNITS TIDWMEALS SQ Last administered on 13:37; Start 06/19/18 at 12:30 Dextrose (Dextrose 50%-Water Syringe) 12.5 gm PRN Q15MIN PRN IV SEE COMMENTS; Start 06/19/18 at 12:15 Clindamycin Phosphate 50 ml @ 100 mls/hr Q8HRS IV Last administered on 05:53; Start 06/21/18 at 10:00 Lactobacillus Rhamnosus (Culturelle) 1 cap BID PO Last administered on 09:28; Start 06/21/18 at 21:00 Milrinone Lactate/ Dextrose 100 ml @ 4.022 mls/ hr CONT PRN IV SEE I/O RECORD Last administered on 06/23/18 05:54; Start 06/22/18 at 13:00 Iodixanol (Visipaque 320) 100 ml STK-MED ONCE .ROUTE ; Start 06/23/18 at 06:35; Stop 06/23/18 at 06:36; Status DC Lidocaine HCl (Lidocaine 1% 20ml Vial) 20 ml STK-MED ONCE .ROUTE ; Start at 06:35; Stop 06/23/18 at 06:36; Status DC Heparin Sodium/ Sodium Chloride 1,500 ml @ As Directed STK-MED ONCE .ROUTE ; Start 06/23/18 at 06:35; Stop 06/23/18 at 06:36; Status DC Iodixanol (Visipaque 320) 100 ml STK-MED ONCE .ROUTE ; Start 06/23/18 at 07:26; Stop 06/23/18 at 07:27; Status DC Midazolam HCl (Versed) 2 mg STK-MED ONCE .ROUTE ; Start 06/23/18 at 07:30; Stop 06/23/18 at 07:31; Status DC Fentanyl Citrate (Fentanyl 2ml Vial) 100 mcg STK-MED ONCE .ROUTE ; Start at 07:30; Stop 06/23/18 at 07:31; Status DC Verapamil HCl (Verapamil) 5 mg STK-MED ONCE .ROUTE ; Start 06/23/18 at 07:30; Stop 06/23/18 at 07:31; Status DC Heparin Sodium (Porcine) (Heparin Sodium) 10,000 unit STK-MED ONCE .ROUTE ; Start 06/23/18 at 07:30; Stop 06/23/18 at 07:31; Status DC Nitroglycerin (Nitroglycerin) 200 mcg STK-MED ONCE .ROUTE ; Start 06/23/18 at 07 :30; Stop 06/23/18 at 07:31; Status DC Nitroglycerin (Nitroglycerin) 200 mcg 1X ONCE IART Last administered on at 08:20; Start 06/23/18 at 08:15; Stop 06/23/18 at 08:18; Status DC Verapamil HCl (Verapamil) 2.5 mg 1X ONCE IART Last administered on 06/23/18at 08:22; Start 06/23/18 at 08:15; Stop 06/23/18 at 08:18; Status DC Heparin Sodium (Porcine) (Heparin Sodium) 2,500 unit 1X ONCE IART Last administered on 06/23/18at 08:23; Start 06/23/18 at 08:15; Stop 06/23/18 at 08:18 ; Status DC Heparin Sodium/ Sodium Chloride (HEPARIN for ARTERIAL LINE FLUSH) 1,000 unit 1X ONCE IART Last administered on 06/23/18 08:20; Start 06/23/18 at 08:15; Stop 06/23/18 at 08:18; Status DC Heparin Sodium/ Sodium Chloride (HEPARIN for ARTERIAL LINE FLUSH) 1,000 unit 1X ONCE IART Last administered on 06/23/18 08:20; Start 06/23/18 at 08:15; Stop 06/23/18 at 08:18; Status DC Midazolam HCl (Versed) 1.5 mg 1X ONCE IV Last administered on 06/23/18 08:21 ; Start 06/23/18 at 08:15; Stop 06/23/18 at 08:18; Status DC Fentanyl Citrate (Fentanyl 2ml Vial) 75 mcg 1X ONCE IV Last administered on 08:22; Start 06/23/18 at 08:15; Stop 06/23/18 at 08:18; Status DC Iodixanol (Visipaque 320) 99 ml 1X ONCE IART Last administered on 06/23/18 08 :20; Start 06/23/18 at 08:15; Stop 06/23/18 at 08:18; Status DC Lidocaine HCl (Lidocaine 1% 20ml Vial) 1 ml 1X ONCE INJ Last administered on 08:20; Start 06/23/18 at 08:15; Stop 06/23/18 at 08:18; Status DC Info (CONTRAST GIVEN -- Rx MONITORING) 1 each PRN DAILY PRN MC SEE COMMENTS; Start 06/23/18 at 08:30; Stop 06/25/18 at 08:29 Active Scripts Active Reported Aspir-Low (Aspirin) 81 Mg Tablet.dr 1 Tab PO DAILY Triamterene-Hctz 37.5-25 Mg Cp (Triamterene/Hydrochlorothiazid) 1 Each Capsule 1 Cap PO DAILY Synthroid (Levothyroxine Sodium) 88 Mcg Tablet 1 Tab PO DAILY Latanoprost 2.5 Ml Drops 1 Drop EACHEYE QHS Vitals/I & O Vital Sign - Last 24 Hours 06/22/18 06/22/18 06/22/18 06/22/18 10:47 11:00 11:46 13:30 Temp 97.7 97.7 Pulse 87 84 Resp 18 B/P (MAP) 98/62 (74) 98/62 (74) 114/53 (73) Pulse Ox 92 95 95 O2 Delivery Nasal Cannula Nasal Cannula Nasal Cannula O2 Flow Rate 3.0 4.0 4.0 06/22/18 06/22/18 06/22/18 06/22/18 14:00 14:20 15:00 15:30 Temp 97.6 97.6 Pulse 86 117 80 80 Resp 18 B/P (MAP) 109/53 (71) 109/53 (71) 112/52 (72) 112/52 (72) Pulse Ox 96 O2 Delivery Nasal Cannula O2 Flow Rate 3.0 06/22/18 06/22/18 06/22/18 06/22/18 15:51 16:00 17:00 18:00 Pulse 84 84 84 B/P (MAP) 114/58 (76) 106/52 (70) 113/55 (74) Pulse Ox 95 O2 Delivery Nasal Cannula O2 Flow Rate 4.0 06/22/18 06/22/18 06/22/18 06/22/18 19:00 19:00 19:31 19:43 Temp 97.4 98.0 97.4 98.0 Pulse 84 85 82 Resp 18 18 B/P (MAP) 93/54 (67) 79/45 (56) 93/54 (67) Pulse Ox 94 97 95 O2 Delivery Nasal Cannula Nasal Cannula Nasal Cannula O2 Flow Rate 4.0 4.0 4.0 06/22/18 06/22/18 06/22/18 06/22/18 20:32 20:40 21:32 23:00 Temp 97.7 97.7 Pulse 89 85 Resp 18 B/P (MAP) 84/51 (62) 96/55 (69) 87/54 (65) Pulse Ox 92 O2 Delivery Nasal Cannula Nasal Cannula O2 Flow Rate 4.0 4.0 06/23/18 06/23/18 06/23/18 06/23/18 00:28 00:32 01:32 03:00 Temp 98.1 98.1 Pulse 89 93 89 Resp 20 B/P (MAP) 99/57 (71) 103/54 (70) 104/56 (72) Pulse Ox 92 98 O2 Delivery Nasal Cannula Nasal Cannula O2 Flow Rate 4.0 4.0 06/23/18 06/23/18 06/23/18 06/23/18 03:32 04:14 05:32 08:22 Pulse 89 88 84 B/P (MAP) 111/58 (75) 102/53 (69) Pulse Ox 98 O2 Delivery Nasal Cannula O2 Flow Rate 4.0 06/23/18 06/23/18 08:22 08:33 Pulse 83 Resp 22 22 Pulse Ox 94 94 O2 Delivery Nasal Cannula Nasal Cannula O2 Flow Rate 5.0 5.0 Intake and Output 06/22/18 06/22/18 06/23/18 15:00 23:00 07:00 Intake Total 0 ml 750 ml 1014.64 ml Output Total 200 ml 350 ml 550 ml Balance -200 ml 400 ml 464.64 ml JULIUS ENGEL MD Jun 23, 2018 09:49
--- NOTE | 2018-06-23 11:13 | NUR ---
SS following up with discharge planning. Pt continues to report that she wants home healthcare at discharge. Pt agreeable to home healthcare with [facility], ; fax [phone]. SS will continue to follow for discharge planning.
[2018-06-23] MEDS ORDERED: IV NORMAL SALINE 250ML 250 ML IV ONE (11:15)
--- NOTE | 2018-06-23 12:32 | CARD ---
MR#: [id number] Date of Study: 06/23/2018 Ordering Physician: ALYSSIA SOLANO, Referring Physician: DA MCADAMS Tech: RT Jessica (R) APPROVED REPORT Technologist: RT Jessica (R) Nurse: Ledy Cifuentes R.N. Procedure(s) performed: Moderate sedation: 52 minutes Abdominal aortography Supravalvular aortography Left subclavian angiography HISTORY The patient is a 73 year-old female with a history of : coronary artery disease, hypertension, dyslip idemia. INDICATION The indication(s) include : Severe PAD. PROCEDURE NARRATIVE Please see cardiac catheterization report for full details on access. Diagnostic imaging: A pigtail catheter was placed in the proximal abdominal aorta. Next, digital subtraction angiography was performed and images were obtained. Subsequent only, the pigtail catheter was then placed in the ascending aorta and repeat supravalvular aortography and arch angiogram was obtained. Finally, the pi gtail catheter was exchanged for a JR4 catheter and subselective left subclavian angiography and CONCHITA angiography was performed. Findings: Abdominal aorta: Diffusely calcified and has a mid infrarenal 80% calcific stenosis. The aortic bifur cation has a critical 95% stenosis. Bilateral renal arteries are patent with moderate disease. Common iliac arteries bilaterally have an ostial 90% stenosis involving the bifurcation. Bilateral external iliac arteries have mild diffuse disease Bilateral internal iliac arteries were not well visualized. Bilateral common femoral arteries are without significant disease on limited images. Supravalvular aortography reveals a calcific aorta without any significant dilation. A normal arch an giogram is noted. The left subclavian ostium likely has a calcific at least 50% stenosis without any significant pressu re gradient. The left internal mammary artery appears to be patent with adequate flow. Conclusion 1. Severe peripheral arterial disease involving the mid and distal abdominal aorta at the bifurcation level as described above. 2. Moderate left subclavian disease. Recommendations Case discussed with vascular surgery, patient needs optimization of her heart failure first and consi deration for high risk endovascular treatment of her peripheral arterial disease and percutaneous santa atment of her coronary disease. Signed by : Alyssia Solano, Electronically Approved : 06/23/2018 12:31:10
--- NOTE | 2018-06-23 14:28 | PDOC2 ---
CONSULT Date of Consult Date of Consult DATE: 06/23/18 TIME: 14:17 Reason for Consult Reason for Consult: Severe 3 vessel CAD Referring Physician Referring Physician: Dr Solano Identification/Chief Complaint Chief Complaint CHF Source Source: Chart review, Patient History of Present Illness Reason for Visit: Patient is a 73 year old female with multiple medical problems including severe PVD, COPD, pulm HTN, who was admitted with CHF. ECHO showed EF of 20%, with moderate and MR. Angiography also showed severe occlusive aortoiliac disease , below knee and subclavian disease. LHC showed elevated EDP > 35mmHg and 3V CAD. LAD target OK, but OM and RCA branches are small. I was consulted for possible CABG. Past Medical History Cardiovascular: CHF, HTN, Aortic stenosis Pulmonary: COPD CENTRAL NERVOUS SYSTEM: Other (No pertinent history) GI: No pertinent hx Heme/Onc: No pertinent hx Hepatobiliary: No pertinent hx Psych: No pertinent hx Musculoskeletal: Osteoarthritis Rheumatologic: No pertinent hx Infectious disease: No pertinent hx ENT: No pertinent hx Renal/: No pertinent hx Endocrine: Hypothyroidism Dermatology: Other (large mid back lesion irregular no redness that she had for 50 yrs, no drain or redness currently; right calf superficial ulcer small. ) Past Surgical History Past Surgical History: Total knee replacement Family History Family History: Other (reviewed and found negative noncontributory to the present) Social History No ALCOHOL: none Drugs: None Lives: with Family (she takes care of her mother at home) Current Problem List Problem List Problems Medical Problems: (1) Congestive heart failure Status: Acute Current Medications Current Medications Current Medications Furosemide (Lasix) 40 mg 1X ONCE IVP Last administered on 06/18/18at 14:59; Start 06/18/18 at 14:00; Stop 06/18/18 at 14:47; Status DC Aspirin (Children'S Aspirin) 324 mg 1X ONCE PO Last administered on 06/18/18at 14:59; Start 06/18/18 at 14:00; Stop 06/18/18 at 14:47; Status DC Potassium Chloride (KCl Oral Soln) 40 meq 1X ONCE PO Last administered on at 14:59; Start 06/18/18 at 15:00; Stop 06/18/18 at 15:01; Status DC Furosemide (Lasix) 40 mg DAILY IVP ; Start 06/19/18 at 09:00; Stop 06/19/18 at 09: 00; Status DC Furosemide (Lasix) 40 mg [id number] IVP ; Start 06/19/18 at 09:00; Stop 06/19/18 at 09: 00; Status DC Lisinopril (Prinivil) 2.5 mg DAILY PO Last administered on 06/21/18 10:32; Start 06/19/18 at 09:00 Furosemide (Lasix) 40 mg BID92 IV Last administered on 06/23/18 09:29; Start 06/18/18 at 16:00 Spironolactone (Aldactone) 25 mg DAILY PO Last administered on 06/21/18 10:30; Start 06/19/18 at 09:00 Heparin Sodium (Porcine) (Heparin Sodium) 5,000 unit Q12HR SQ Last administered on 06/22/18 20:39; Start 06/18/18 at 16:00 Sodium Chloride (Normal Saline Flush) 3 ml QSHIFT PRN IV AFTER MEDS AND BLOOD DRAWS; Start 06/18/18 at 16:00 Ondansetron HCl (Zofran) 4 mg PRN Q4HRS PRN IV NAUSEA/VOMITING; Start 06/18/18 at 16:00 Acetaminophen (Tylenol) 650 mg PRN Q4HRS PRN PO TEMP OVER 100.4F OR MILD PAIN Last administered on 06/23/18 09:28; Start 06/18/18 at 16:00 Sodium Monofluorophosphate (Fleet Adult) 133 ml PRN DAILY PRN OR CONSTIPATION; Start 06/18/18 at 16:00 Diphenhydramine HCl (Benadryl) 25 mg PRN Q4HRS PRN IVP ITCHING Last administered on 06/22/18 20:43; Start 06/18/18 at 16:00 Docusate Sodium (Colace) 100 mg PRN BID PRN PO CONSTIPATION Last administered on 06/23/18 09:28; Start 06/18/18 at 16:00 Albuterol Sulfate (Ventolin Neb Soln) 2.5 mg PRN Q4HRS PRN NEB SHORTNESS OF BREATH; Start 06/18/18 at 16:00 Albuterol/ Ipratropium (Duoneb) 3 ml Q4HRS NEB Last administered on 06/23/18 12:00; Start 06/18/18 at 16:00 Aspirin (Ecotrin) 81 mg DAILY08 PO Last administered on 06/23/18 09:28; Start 06/19/18 at 08:00 Levothyroxine Sodium (Synthroid) 88 mcg DAILY08 PO Last administered on 09:28; Start 06/19/18 at 08:00 Latanoprost (Xalatan) 1 drop QHS OU Last administered on 06/22/18 20:37; Start 06/18/18 at 21:00 Potassium Chloride (KCl Oral Soln) 40 meq 1X ONCE PO Last administered on 13:43; Start 06/19/18 at 13:00; Stop 06/19/18 at 13:01; Status DC Insulin Glargine (Lantus) 5 units QHS SQ Last administered on 06/22/18 20:48; Start 06/19/18 at 21:00 Insulin Human Lispro (HumaLOG) 0-5 UNITS TIDWMEALS SQ Last administered on 13:37; Start 06/19/18 at 12:30 Dextrose (Dextrose 50%-Water Syringe) 12.5 gm PRN Q15MIN PRN IV SEE COMMENTS; Start 06/19/18 at 12:15 Clindamycin Phosphate 50 ml @ 100 mls/hr Q8HRS IV Last administered on 13:57; Start 06/21/18 at 10:00 Lactobacillus Rhamnosus (Culturelle) 1 cap BID PO Last administered on 09:28; Start 06/21/18 at 21:00 Milrinone Lactate/ Dextrose 100 ml @ 4.022 mls/ hr CONT PRN IV SEE I/O RECORD Last administered on 06/23/18 05:54; Start 06/22/18 at 13:00 Iodixanol (Visipaque 320) 100 ml STK-MED ONCE .ROUTE ; Start 06/23/18 at 06:35; Stop 06/23/18 at 06:36; Status DC Lidocaine HCl (Lidocaine 1% 20ml Vial) 20 ml STK-MED ONCE .ROUTE ; Start at 06:35; Stop 06/23/18 at 06:36; Status DC Heparin Sodium/ Sodium Chloride 1,500 ml @ As Directed STK-MED ONCE .ROUTE ; Start 06/23/18 at 06:35; Stop 06/23/18 at 06:36; Status DC Iodixanol (Visipaque 320) 100 ml STK-MED ONCE .ROUTE ; Start 06/23/18 at 07:26; Stop 06/23/18 at 07:27; Status DC Midazolam HCl (Versed) 2 mg STK-MED ONCE .ROUTE ; Start 06/23/18 at 07:30; Stop 06/23/18 at 07:31; Status DC Fentanyl Citrate (Fentanyl 2ml Vial) 100 mcg STK-MED ONCE .ROUTE ; Start at 07:30; Stop 06/23/18 at 07:31; Status DC Verapamil HCl (Verapamil) 5 mg STK-MED ONCE .ROUTE ; Start 06/23/18 at 07:30; Stop 06/23/18 at 07:31; Status DC Heparin Sodium (Porcine) (Heparin Sodium) 10,000 unit STK-MED ONCE .ROUTE ; Start 06/23/18 at 07:30; Stop 06/23/18 at 07:31; Status DC Nitroglycerin (Nitroglycerin) 200 mcg STK-MED ONCE .ROUTE ; Start 06/23/18 at 07 :30; Stop 06/23/18 at 07:31; Status DC Nitroglycerin (Nitroglycerin) 200 mcg 1X ONCE IART Last administered on at 08:20; Start 06/23/18 at 08:15; Stop 06/23/18 at 08:18; Status DC Verapamil HCl (Verapamil) 2.5 mg 1X ONCE IART Last administered on 06/23/18at 08:22; Start 06/23/18 at 08:15; Stop 06/23/18 at 08:18; Status DC Heparin Sodium (Porcine) (Heparin Sodium) 2,500 unit 1X ONCE IART Last administered on 06/23/18at 08:23; Start 06/23/18 at 08:15; Stop 06/23/18 at 08:18 ; Status DC Heparin Sodium/ Sodium Chloride (HEPARIN for ARTERIAL LINE FLUSH) 1,000 unit 1X ONCE IART Last administered on 06/23/18at 08:20; Start 06/23/18 at 08:15; Stop 06/23/18 at 08:18; Status DC Heparin Sodium/ Sodium Chloride (HEPARIN for ARTERIAL LINE FLUSH) 1,000 unit 1X ONCE IART Last administered on 06/23/18at 08:20; Start 06/23/18 at 08:15; Stop 06/23/18 at 08:18; Status DC Midazolam HCl (Versed) 1.5 mg 1X ONCE IV Last administered on 06/23/18at 08:21 ; Start 06/23/18 at 08:15; Stop 06/23/18 at 08:18; Status DC Fentanyl Citrate (Fentanyl 2ml Vial) 75 mcg 1X ONCE IV Last administered on 01/01at 08:22; Start 06/23/18 at 08:15; Stop 06/23/18 at 08:18; Status DC Iodixanol (Visipaque 320) 99 ml 1X ONCE IART Last administered on 06/23/18at 08 :20; Start 06/23/18 at 08:15; Stop 06/23/18 at 08:18; Status DC Lidocaine HCl (Lidocaine 1% 20ml Vial) 1 ml 1X ONCE INJ Last administered on at 08:20; Start 06/23/18 at 08:15; Stop 06/23/18 at 08:18; Status DC Info (CONTRAST GIVEN -- Rx MONITORING) 1 each PRN DAILY PRN MC SEE COMMENTS; Start 06/23/18 at 08:30; Stop 06/25/18 at 08:29 Sodium Chloride 250 ml @ 250 mls/hr 1X ONCE IV Last administered on at 11:07; Start 06/23/18 at 11:15; Stop 06/23/18 at 12:14; Status DC Active Scripts Active Reported Aspir-Low (Aspirin) 81 Mg Tablet.dr 1 Tab PO DAILY Triamterene-Hctz 37.5-25 Mg Cp (Triamterene/Hydrochlorothiazid) 1 Each Capsule 1 Cap PO DAILY Synthroid (Levothyroxine Sodium) 88 Mcg Tablet 1 Tab PO DAILY Latanoprost 2.5 Ml Drops 1 Drop EACHEYE QHS Allergies Allergies: Coded Allergies: Penicillins (Verified Allergy, Intermediate, 06/18/18) ROS General: YES: Fatigue; No: Chills, Night Sweats, Malaise, Appetite PSYCHOLOGICAL ROS: No: Anxiety, Behavioral Disorder, Concentration difficultie , Decreased libido, Depression, Disorientation, Hallucinations, Hostility, Irritablity, Memory difficulties, Mood Swings, Obsessive thoughts, Physical abuse, Sexual abuse, Sleep disturbances, Suicidal ideation Eyes: No Blurry vision, No Decreased vision, No Double vision, No Dry eyes, No Excessive tearing, No Eye Pain, No Itchy Eyes, No Loss of vision, No Photophobia , No Scotomata, No Uses contacts, No Uses glasses HEENT: No: Heacaches, Visual Changes, Hearing change, Nasal congestion, Nasal discharge, Oral lesions, Sinus pain, Sore Throat, Epistaxis, Sneezing, Snoring, Tinnitus, Vertigo, Vocal changes ALLERGY AND IMMUNOLOGY: No: Hives, Insect Bite Sensitivity, Itchy/Watery Eyes, Nasal Congestion, Post Nasal Drip, Seasonal Allergies Hematological and Lymphatic: No: Bleeding Problems, Blood Clots, Blood Transfusions, Brusing, Night Sweats, Pallor, Swollen Lymph Nodes ENDOCRINE: No: Breast Changes, Galactorrhea, Hair Pattern Changes, Hot Flashes , Malaise/lethargy, Mood Swings, Palpitations, Polydipsia/polyuria, Skin Changes , Temperature Intolerance, Unexpected Weight Changes Breast: No New/Changing Breast Lumps, No Nipple changes, No Nipple discharge Respiratory: YES: Shortness of breath, SOB with excertion; No: Cough, Hemoptysis, Orthopnea, Pleuritic Pain, Sputum Changes, Stridor, Tachypnea, Wheezing Cardiovascular: yes Chest Pain, yes Orthopnea, yes Edema; No Palpitations, No Paroxysmal Noc. Dyspnea, No Lt Headedness Gastrointestinal: Yes Nausea; No Vomiting, No Abdominal Pain, No Diarrhea, No Constipation, No Melena, No Hematochezia Genitourinary: No Dysuria, No Frequency, No Incontinence, No Hematuria, No Retention, No Discharge, No Urgency, No Pain, No Flank Pain Musculoskeletal: No Gait Disturbance, No Joint Pain, No Joint Stiffness, No Joint Swelling, No Muscle Pain, No Muscular Weakness, No Pain In:, No Swelling In: Neurological: No Behavorial Changes, No Bowel/Bladder ControlChng, No Confusion , No Dizziness, No Gait Disturbance, No Headaches, No Impaired Coord/balance, No Memory Loss, No Numbness/Tingling, No Seizures, No Speech Problems, No Tremors, No Visual Changes, No Weakness Skin: No Dry Skin, No Eczema, No Hair Changes, No Lumps, No Mole Changes, No Mottling, No Nail Changes, No Pruritus, No Rash, No Skin Lesion Changes, No Acne Physical Exam General: Alert, Oriented X3, Cooperative, mild distress HEENT: PERRLA Lungs: Other Heart: Regular rate, Normal S1, Normal S2 Abdomen: Normal bowel sounds, Soft Extremities: Other (edema) Skin: Other Neuro: Normal gait, Normal speech, Strength at 5/5 X4 ext, Normal tone, Sensation intact, Cranial nerves 3-12 NL, Reflexes 2+ Vitals VITALS Vital Signs Date Time Temp Pulse Resp B/P (MAP) Pulse Ox O2 Delivery O2 Flow Rate FiO2 06/23/18 12:07 Nasal Cannula 4.0 06/23/18 08:33 83 22 94 06/23/18 05:32 102/53 (69) 06/23/18 03:00 98.1 98.1 Labs Labs Laboratory Tests Test 06/21/18 16:34 06/21/18 21:11 06/22/18 08:07 06/22/18 08:28 Glucose (Fingerstick) 125 mg/dL (70-99) 134 mg/dL (70-99) 127 mg/dL (70-99) Erythrocyte Sedimentation Rate 8 (0-25) Prothrombin Time 13.8 SEC (11.7-14.0) Prothromb Time International Ratio 1.1 (0.8-1.1) Sodium Level 121 mmol/L (136-145) Potassium Level 3.7 mmol/L (3.5-5.1) Chloride Level 84 mmol/L (98-107) Carbon Dioxide Level 30 mmol/L (21-32) Anion Gap 7 (6-14) Blood Urea Nitrogen 10 mg/dL (7-20) Creatinine 0.9 mg/dL (0.6-1.0) Estimated GFR (Cockcroft-Gault) 61.5 Glucose Level 110 mg/dL (70-99) Calcium Level 8.9 mg/dL (8.5-10.1) LG-Vgg-J-Type Natriuretic Peptide 36694 pg/mL (0-124) Test 06/22/18 10:31 06/22/18 17:33 06/22/18 20:25 06/23/18 12:14 Glucose (Fingerstick) 125 mg/dL (70-99) 114 mg/dL (70-99) 138 mg/dL (70-99) 127 mg/dL (70-99) Laboratory Tests Test 06/22/18 17:33 06/22/18 20:25 06/23/18 12:14 Glucose (Fingerstick) 114 mg/dL (70-99) 138 mg/dL (70-99) 127 mg/dL (70-99) Assessment/Plan Assessment/Plan Patient is a 73 year old female with multiple medical problems including severe PVD, COPD, pulm HTN, who was admitted with CHF. ECHO showed EF of 20%, with moderate and MR. Angiography also showed severe occlusive aortoiliac disease , below knee and subclavian disease. LHC showed elevated EDP > 35mmHg and 3V CAD. LAD target OK, but OM and RCA branches are small. I was consulted for possible CABG. Given low EF, boderline targets, functional status, severe PVD, COPD and pulm HTN, she would be an extremely high risk candidate for open heart surgery. She is also DNR. Would recommend medical management and possible percutaneous options for her PVD and CAD. ARTIE HEREDIA MD Jun 23, 2018 14:28
--- NOTE | 2018-06-23 20:14 | PDOC ---
Provider Note Provider Note Case discussed with Dr. ePrrin. Will await vascular surgical plans. She will need complex barrera-barron of the aortic bifurcation and likely will also need mid abdominal aortic stent insertion to allow for percutaneous mechanical circ support device insertion. Will coordinate with vascular surgery and determine if this can be accomplished here at [place] of if she needs transfer to [facility]. Will follow along. Patient updated and understands her situation Case discussed with Dr. Brennan. ALYSSIA PASCUAL MD Jun 23, 2018 20:14
[2018-06-23] MEDS ORDERED: FUROSEMIDE 40 MG/4 ML VIAL. IVP ONE (20:15)
[2018-06-23] MEDS: LATANOPROST 0.005% OPHTH SOLUTION 2.5ML BOTTLE. OU SCH (20:38)
[2018-06-23] MEDS: diphenhydrAMINE 50 MG/ML VIAL IVP PRN (20:41)
[2018-06-23] MEDS: INSULIN GLARGINE 300 UNITS/3 ML INSULN.PEN. SQ SCH (20:55)
[2018-06-24] VITALS (10 sets, daily range): BP systolic 76–98; BP diastolic 47–65
[2018-06-24] MEDS: IPRATRPIUM/ALBUTEROL 0.5/2.5MG 3 ML NEBU. NEB SCH ×6 (04:08→23:49)
[2018-06-24] MEDS: CLINDAMYCIN 600MG PREMIX 50 ML IV SCH ×2 (05:59→14:17)
[2018-06-24] MEDS: INSULIN LISPRO 300 UNITS/3 ML INSULN.PEN. SQ SCH ×3 (07:58→17:00)
[2018-06-24] MEDS: ASPIRIN ENTERIC COATED 81 MG TABLET.DR. PO SCH (08:13)
[2018-06-24] MEDS: LEVOTHYROXINE 88 MCG TABLET PO SCH (08:13)
[2018-06-24] MEDS: LACTOBACILLUS RHAMNOSUS GG 1 CAPSULE. PO SCH ×2 (08:13→20:52)
[2018-06-24] MEDS: DOCUSATE SODIUM 100 MG CAPSULE. PO PRN (08:13)
[2018-06-24] MEDS: LISINOPRIL 5 MG TABLET. PO SCH (08:13)
[2018-06-24] MEDS: SPIRONOLACTONE 25 MG TABLET PO SCH (08:14)
[2018-06-24] MEDS: FUROSEMIDE 40 MG/4 ML VIAL. IV SCH ×2 (08:16→14:20)
[2018-06-24] MEDS: HEPARIN for SUB-Q USE 5,000 UNIT/ML VIAL. SQ SCH ×2 (08:21→21:03)
[2018-06-24] MEDS ORDERED: CLIN300C8 PO (09:19)
[2018-06-24] MEDS ORDERED: ALBU2.5V8 NEB (09:19)
[2018-06-24] MEDS ORDERED: FURO-68 PO (09:19)
[2018-06-24] MEDS ORDERED: SPIR25TA PO (09:19)
[2018-06-24] MEDS ORDERED: LISI-338 PO (09:19)
--- NOTE | 2018-06-24 09:21 | SNU/HH DC ---
DISCHARGE WITH HOME HEALTH DISCHARGE INFORMATION: Discharge Date: Jun 24, 2018 Final Diagnosis: Problems Medical Problems: (1) Congestive heart failure Status: Acute Condition on Discharge: Stable CODE STATUS: Code Status: DNR/DNI HOME HEALTH: Face to Face: I certify this patient is under my care and that I, or a nurse practitioner or physician's ex assistant/program director working with me, had a face to face encounter that meets the physician face to face encounter requirements with this patient on []. Medical Complications: CHF, Falls, HTN RN For Eval/Treatment: Yes Physical Therapy For: Evalulation/Treatment Occupational Therapy For: Evaluation/Treatment Home Health Aide For: Self-care [employer]IC[employer] SPECIALIST For: Community Resources Pt Meets Homebound Status: Unsteady balance w/ amb, CHECKS AFTER DISCHARGE: Checks after discharge: Check blood press - daily, Check blood sugar, ac/hs FOLLOW-UP: PCP to follow Home Health: chf clinic TREATMENT/EQUIPMENT ORDERS: Adaptive Equipment Issued: Front wheeled walker CERTIFICATION STATEMENT: Certification Statement: Certification Statement: Based on the above finding, I certify that this patient is confined to the home and needs intermittent senior living care, physical therapy and/or speech therapy, or continues to need occupational therapy.~ This patient is under my care, and I have initiated the establishment of the plan of care.~ This patient will be followed by myself or a community physician who will periodically review the plan of care. Home Meds Active Scripts Clindamycin Hcl (CLINDAMYCIN HCL) 300 Mg Capsule, 300 MG PO QID for cellulitis for 7 Days, #28 CAP Prov:JULIUS ENGEL MD 06/24/18 Furosemide (LASIX) 40 Mg Tablet, 40 MG PO BID for leg edema for 14 Days, #28 TAB Prov:JULIUS ENGEL MD 06/24/18 Spironolactone (ALDACTONE) 25 Mg Tablet, 25 MG PO DAILY for chf, htn MDD 1, #30 TAB Prov:JULIUS ENGEL MD 06/24/18 Lisinopril (LISINOPRIL) 5 Mg Tablet, 2.5 MG PO DAILY for htn MDD 1, #30 TAB Prov:JULIUS ENGEL MD 06/24/18 Albuterol Sulfate (Proair Hfa) 8.5 Gm Hfa.aer.ad, 2.5 MG NEB PRN Q4HRS PRN for SHORTNESS OF BREATH MDD 1, #30 INHALER Prov:JULIUS ENGEL MD 06/24/18 Reported Medications Aspirin (ASPIR-LOW) 81 Mg Tablet.dr, 1 TAB PO DAILY for heart, #30 TAB 3 Refills 06/18/18 Triamterene/Hydrochlorothiazid (TRIAMTERENE-HCTZ 37.5-25 MG CP) 1 Each Capsule, 1 CAP PO DAILY for CHF, #30 CAP 5 Refills 06/18/18 Levothyroxine Sodium (SYNTHROID) 88 Mcg Tablet, 1 TAB PO DAILY for thyroid, #30 TAB 5 Refills 06/18/18 Latanoprost (LATANOPROST) 2.5 Ml Drops, 1 DROP EACHEYE QHS for eye care, #7.5 ML 3 Refills 06/18/18 JULIUS ENGEL MD Jun 24, 2018 09:21
[2018-06-24 09:39] LABS: HEMATOCRIT 35.2 % (36.0-47.0); HEMOGLOBIN 11.8 g/dL (12.0-15.5); RED BLOOD COUNT 4.05 x10^6/uL (3.50-5.40); RED CELL DISTRIBUTION WIDTH 17.3 % (11.5-14.5); WHITE BLOOD COUNT 4.1 x10^3/uL (4.0-11.0)
[2018-06-24 09:51] LABS: CALCIUM 8.9 mg/dL (8.5-10.1); CREATININE 0.9 mg/dL (0.6-1.0); GFR 61.5; MAGNESIUM 1.3 mg/dL (1.8-2.4); POTASSIUM 3.2 mmol/L (3.5-5.1)
--- NOTE | 2018-06-24 10:31 | PDOC ---
PROGRESS NOTES Chief Complaint Chief Complaint TRipple vessel Disease by [facility] 06/22/18 Severe ischemic CM with EF 30% Acute on chronic CHF AECOPD/pulmonary HTN LE edema more to RLE with small superficial right posterior ulcer. PAD, poor pulses - OP arteriogram Hypothyroidism TSH 5 with T4 at goal on synthroid constipated - bowel regimen Hypokalemia . corrected Morbid obesity with likely GÓMEZ Severe onychmycoses DM2 - A1c 7.9 History of Present Illness History of Present Illness Not-open heart surgery candidate per T [facility] I did update cardiology We'll talk with cardiology if she needs PCI instead So far on medical management Patient aware of her low EF and triple vessel disease Patient also aware of severe PAD plan for outpatient arteriogram by vascular surgery Plan Await further cardiac recommendations home health on discharge - does not want SNU Some thoughts about [facility] transfer as mentioned during LOS meeting? Vitals Vitals Vital Signs Date Time Temp Pulse Resp B/P (MAP) Pulse Ox O2 Delivery O2 Flow Rate FiO2 06/24/18 08:13 83 82/50 06/24/18 07:55 93 Nasal Cannula 4.0 06/24/18 06:37 97.5 18 97.5 Physical Exam General: Alert, Oriented X3, Cooperative, mild distress Heart: Regular rate, Normal S1, Normal S2 Lungs: Clear, Crackles Abdomen: Normal bowel sounds, Soft Extremities: Other (edema) Skin: Other Labs LABS Laboratory Tests Test 06/23/18 12:14 06/23/18 16:49 06/23/18 20:44 06/24/18 07:48 Glucose (Fingerstick) 127 mg/dL (70-99) 149 mg/dL (70-99) 134 mg/dL (70-99) 104 mg/dL (70-99) Test 06/24/18 08:50 White Blood Count 4.1 x10^3/uL (4.0-11.0) Red Blood Count 4.05 x10^6/uL (3.50-5.40) Hemoglobin 11.8 g/dL (12.0-15.5) Hematocrit 35.2 % (36.0-47.0) Mean Corpuscular Volume 87 fL (79-100) Mean Corpuscular Hemoglobin 29 pg (25-35) Mean Corpuscular Hemoglobin Concent 34 g/dL (31-37) Red Cell Distribution Width 17.3 % (11.5-14.5) Platelet Count 132 x10^3/uL (140-400) Sodium Level 124 mmol/L (136-145) Potassium Level 3.2 mmol/L (3.5-5.1) Chloride Level 85 mmol/L (98-107) Carbon Dioxide Level 33 mmol/L (21-32) Anion Gap 6 (6-14) Blood Urea Nitrogen 7 mg/dL (7-20) Creatinine 0.9 mg/dL (0.6-1.0) Estimated GFR (Cockcroft-Gault) 61.5 Glucose Level 104 mg/dL (70-99) Calcium Level 8.9 mg/dL (8.5-10.1) Magnesium Level 1.3 mg/dL (1.8-2.4) Review of Systems Review of Systems A 14 point ROS was completed with the following noted as positive: Other systems reviewed and negative. \CONSTITUTIONAL: No fever or chills EYES: No recent changes SKIN: No rash or itching CARDIOVASCULAR: No chest pain, syncope, palpitations, or edema RESPIRATORY: No SOB or cough GASTROINTESTINAL: No nausea, vomiting or abdominal pain NEUROLOGICAL: No headaches or weakness ENDOCRINE: No cold or heat intolerance GENITOURINARY: No urgency or frequency of urination MUSCULOSKELETAL: No back pain or joint pain LYMPHATICS: No enlarged lymph nodes PSYCHIATRIC: No anxiety or depression Assessment and Plan Assessmemt and Plan Problems Medical Problems: (1) Congestive heart failure Status: Acute Comment Review of Relevant I have reviewed the following items rosangela (where applicable) has been applied. Labs Laboratory Tests Test 06/22/18 10:31 06/22/18 17:33 06/22/18 20:25 06/23/18 12:14 Glucose (Fingerstick) 125 mg/dL (70-99) 114 mg/dL (70-99) 138 mg/dL (70-99) 127 mg/dL (70-99) Test 06/23/18 16:49 06/23/18 20:44 06/24/18 07:48 06/24/18 08:50 Glucose (Fingerstick) 149 mg/dL (70-99) 134 mg/dL (70-99) 104 mg/dL (70-99) White Blood Count 4.1 x10^3/uL (4.0-11.0) Red Blood Count 4.05 x10^6/uL (3.50-5.40) Hemoglobin 11.8 g/dL (12.0-15.5) Hematocrit 35.2 % (36.0-47.0) Mean Corpuscular Volume 87 fL (79-100) Mean Corpuscular Hemoglobin 29 pg (25-35) Mean Corpuscular Hemoglobin Concent 34 g/dL (31-37) Red Cell Distribution Width 17.3 % (11.5-14.5) Platelet Count 132 x10^3/uL (140-400) Sodium Level 124 mmol/L (136-145) Potassium Level 3.2 mmol/L (3.5-5.1) Chloride Level 85 mmol/L (98-107) Carbon Dioxide Level 33 mmol/L (21-32) Anion Gap 6 (6-14) Blood Urea Nitrogen 7 mg/dL (7-20) Creatinine 0.9 mg/dL (0.6-1.0) Estimated GFR (Cockcroft-Gault) 61.5 Glucose Level 104 mg/dL (70-99) Calcium Level 8.9 mg/dL (8.5-10.1) Magnesium Level 1.3 mg/dL (1.8-2.4) Laboratory Tests Test 06/23/18 12:14 06/23/18 16:49 06/23/18 20:44 06/24/18 07:48 Glucose (Fingerstick) 127 mg/dL (70-99) 149 mg/dL (70-99) 134 mg/dL (70-99) 104 mg/dL (70-99) Test 06/24/18 08:50 White Blood Count 4.1 x10^3/uL (4.0-11.0) Red Blood Count 4.05 x10^6/uL (3.50-5.40) Hemoglobin 11.8 g/dL (12.0-15.5) Hematocrit 35.2 % (36.0-47.0) Mean Corpuscular Volume 87 fL (79-100) Mean Corpuscular Hemoglobin 29 pg (25-35) Mean Corpuscular Hemoglobin Concent 34 g/dL (31-37) Red Cell Distribution Width 17.3 % (11.5-14.5) Platelet Count 132 x10^3/uL (140-400) Sodium Level 124 mmol/L (136-145) Potassium Level 3.2 mmol/L (3.5-5.1) Chloride Level 85 mmol/L (98-107) Carbon Dioxide Level 33 mmol/L (21-32) Anion Gap 6 (6-14) Blood Urea Nitrogen 7 mg/dL (7-20) Creatinine 0.9 mg/dL (0.6-1.0) Estimated GFR (Cockcroft-Gault) 61.5 Glucose Level 104 mg/dL (70-99) Calcium Level 8.9 mg/dL (8.5-10.1) Magnesium Level 1.3 mg/dL (1.8-2.4) Medications Current Medications Furosemide (Lasix) 40 mg 1X ONCE IVP Last administered on 06/18/18 14:59; Start 06/18/18 at 14:00; Stop 06/18/18 at 14:47; Status DC Aspirin (Children'S Aspirin) 324 mg 1X ONCE PO Last administered on 06/18/18 14:59; Start 06/18/18 at 14:00; Stop 06/18/18 at 14:47; Status DC Potassium Chloride (KCl Oral Soln) 40 meq 1X ONCE PO Last administered on 14:59; Start 06/18/18 at 15:00; Stop 06/18/18 at 15:01; Status DC Furosemide (Lasix) 40 mg DAILY IVP ; Start 06/19/18 at 09:00; Stop 06/19/18 at 09: 00; Status DC Furosemide (Lasix) 40 mg [id number] IVP ; Start 06/19/18 at 09:00; Stop 06/19/18 at 09: 00; Status DC Lisinopril (Prinivil) 2.5 mg DAILY PO Last administered on 06/21/18 10:32; Start 06/19/18 at 09:00 Furosemide (Lasix) 40 mg BID92 IV Last administered on 06/23/18 09:29; Start 06/18/18 at 16:00 Spironolactone (Aldactone) 25 mg DAILY PO Last administered on 06/21/18 10:30; Start 06/19/18 at 09:00 Heparin Sodium (Porcine) (Heparin Sodium) 5,000 unit Q12HR SQ Last administered on 06/24/18 08:21; Start 06/18/18 at 16:00 Sodium Chloride (Normal Saline Flush) 3 ml QSHIFT PRN IV AFTER MEDS AND BLOOD DRAWS; Start 06/18/18 at 16:00 Ondansetron HCl (Zofran) 4 mg PRN Q4HRS PRN IV NAUSEA/VOMITING; Start 06/18/18 at 16:00 Acetaminophen (Tylenol) 650 mg PRN Q4HRS PRN PO TEMP OVER 100.4F OR MILD PAIN Last administered on 06/23/18 09:28; Start 06/18/18 at 16:00 Sodium Monofluorophosphate (Fleet Adult) 133 ml PRN DAILY PRN IN CONSTIPATION; Start 06/18/18 at 16:00 Diphenhydramine HCl (Benadryl) 25 mg PRN Q4HRS PRN IVP ITCHING Last administered on 06/23/18 20:41; Start 06/18/18 at 16:00 Docusate Sodium (Colace) 100 mg PRN BID PRN PO CONSTIPATION Last administered on 06/24/18 08:13; Start 06/18/18 at 16:00 Albuterol Sulfate (Ventolin Neb Soln) 2.5 mg PRN Q4HRS PRN NEB SHORTNESS OF BREATH; Start 06/18/18 at 16:00 Albuterol/ Ipratropium (Duoneb) 3 ml Q4HRS NEB Last administered on 06/24/18 07:55; Start 06/18/18 at 16:00 Aspirin (Ecotrin) 81 mg DAILY08 PO Last administered on 06/24/18 08:13; Start 06/19/18 at 08:00 Levothyroxine Sodium (Synthroid) 88 mcg DAILY08 PO Last administered on 08:13; Start 06/19/18 at 08:00 Latanoprost (Xalatan) 1 drop QHS OU Last administered on 06/23/18 20:38; Start 06/18/18 at 21:00 Potassium Chloride (KCl Oral Soln) 40 meq 1X ONCE PO Last administered on 13:43; Start 06/19/18 at 13:00; Stop 06/19/18 at 13:01; Status DC Insulin Glargine (Lantus) 5 units QHS SQ Last administered on 06/23/18at 20:55; Start 06/19/18 at 21:00 Insulin Human Lispro (HumaLOG) 0-5 UNITS TIDWMEALS SQ Last administered on at 13:37; Start 06/19/18 at 12:30 Dextrose (Dextrose 50%-Water Syringe) 12.5 gm PRN Q15MIN PRN IV SEE COMMENTS; Start 06/19/18 at 12:15 Clindamycin Phosphate 50 ml @ 100 mls/hr Q8HRS IV Last administered on at 05:59; Start 06/21/18 at 10:00 Lactobacillus Rhamnosus (Culturelle) 1 cap BID PO Last administered on at 08:13; Start 06/21/18 at 21:00 Milrinone Lactate/ Dextrose 100 ml @ 4.022 mls/ hr CONT PRN IV SEE I/O RECORD Last administered on 06/23/18at 05:54; Start 06/22/18 at 13:00 Iodixanol (Visipaque 320) 100 ml STK-MED ONCE .ROUTE ; Start 06/23/18 at 06:35; Stop 06/23/18 at 06:36; Status DC Lidocaine HCl (Lidocaine 1% 20ml Vial) 20 ml STK-MED ONCE .ROUTE ; Start at 06:35; Stop 06/23/18 at 06:36; Status DC Heparin Sodium/ Sodium Chloride 1,500 ml @ As Directed STK-MED ONCE .ROUTE ; Start 06/23/18 at 06:35; Stop 06/23/18 at 06:36; Status DC Iodixanol (Visipaque 320) 100 ml STK-MED ONCE .ROUTE ; Start 06/23/18 at 07:26; Stop 06/23/18 at 07:27; Status DC Midazolam HCl (Versed) 2 mg STK-MED ONCE .ROUTE ; Start 06/23/18 at 07:30; Stop 06/23/18 at 07:31; Status DC Fentanyl Citrate (Fentanyl 2ml Vial) 100 mcg STK-MED ONCE .ROUTE ; Start at 07:30; Stop 06/23/18 at 07:31; Status DC Verapamil HCl (Verapamil) 5 mg STK-MED ONCE .ROUTE ; Start 06/23/18 at 07:30; Stop 06/23/18 at 07:31; Status DC Heparin Sodium (Porcine) (Heparin Sodium) 10,000 unit STK-MED ONCE .ROUTE ; Start 06/23/18 at 07:30; Stop 06/23/18 at 07:31; Status DC Nitroglycerin (Nitroglycerin) 200 mcg STK-MED ONCE .ROUTE ; Start 06/23/18 at 07 :30; Stop 06/23/18 at 07:31; Status DC Nitroglycerin (Nitroglycerin) 200 mcg 1X ONCE IART Last administered on 08:20; Start 06/23/18 at 08:15; Stop 06/23/18 at 08:18; Status DC Verapamil HCl (Verapamil) 2.5 mg 1X ONCE IART Last administered on 06/23/18 08:22; Start 06/23/18 at 08:15; Stop 06/23/18 at 08:18; Status DC Heparin Sodium (Porcine) (Heparin Sodium) 2,500 unit 1X ONCE IART Last administered on 06/23/18 08:23; Start 06/23/18 at 08:15; Stop 06/23/18 at 08:18 ; Status DC Heparin Sodium/ Sodium Chloride (HEPARIN for ARTERIAL LINE FLUSH) 1,000 unit 1X ONCE IART Last administered on 06/23/18 08:20; Start 06/23/18 at 08:15; Stop 06/23/18 at 08:18; Status DC Heparin Sodium/ Sodium Chloride (HEPARIN for ARTERIAL LINE FLUSH) 1,000 unit 1X ONCE IART Last administered on 06/23/18 08:20; Start 06/23/18 at 08:15; Stop 06/23/18 at 08:18; Status DC Midazolam HCl (Versed) 1.5 mg 1X ONCE IV Last administered on 06/23/18 08:21 ; Start 06/23/18 at 08:15; Stop 06/23/18 at 08:18; Status DC Fentanyl Citrate (Fentanyl 2ml Vial) 75 mcg 1X ONCE IV Last administered on 08:22; Start 06/23/18 at 08:15; Stop 06/23/18 at 08:18; Status DC Iodixanol (Visipaque 320) 99 ml 1X ONCE IART Last administered on 4/10/19at 08 :20; Start 06/23/18 at 08:15; Stop 06/23/18 at 08:18; Status DC Lidocaine HCl (Lidocaine 1% 20ml Vial) 1 ml 1X ONCE INJ Last administered on at 08:20; Start 06/23/18 at 08:15; Stop 06/23/18 at 08:18; Status DC Info (CONTRAST GIVEN -- Rx MONITORING) 1 each PRN DAILY PRN MC SEE COMMENTS; Start 06/23/18 at 08:30; Stop 06/25/18 at 08:29 Sodium Chloride 250 ml @ 250 mls/hr 1X ONCE IV Last administered on at 11:07; Start 06/23/18 at 11:15; Stop 06/23/18 at 12:14; Status DC Furosemide (Lasix) 40 mg 1X ONCE IVP Last administered on 06/23/18at 20:46; Start 06/23/18 at 20:15; Stop 06/23/18 at 20:19; Status DC Active Scripts Active Clindamycin Hcl 300 Mg Capsule 300 Mg PO QID 7 Days Lasix (Furosemide) 40 Mg Tablet 40 Mg PO BID 14 Days Aldactone (Spironolactone) 25 Mg Tablet 25 Mg PO DAILY MDD 1 Lisinopril 5 Mg Tablet 2.5 Mg PO DAILY MDD 1 Proair Hfa (Albuterol Sulfate) 8.5 Gm Hfa.aer.ad 2.5 Mg NEB PRN Q4HRS PRN MDD 1 Reported Aspir-Low (Aspirin) 81 Mg Tablet.dr 1 Tab PO DAILY Triamterene-Hctz 37.5-25 Mg Cp (Triamterene/Hydrochlorothiazid) 1 Each Capsule 1 Cap PO DAILY Synthroid (Levothyroxine Sodium) 88 Mcg Tablet 1 Tab PO DAILY Latanoprost 2.5 Ml Drops 1 Drop EACHEYE QHS Vitals/I & O Vital Sign - Last 24 Hours 06/23/18 06/23/18 06/23/18 06/23/18 11:00 12:07 15:00 16:00 Temp 97.4 97.4 97.4 97.4 Pulse 81 85 Resp 20 20 B/P (MAP) 84/53 (63) 83/53 (63) Pulse Ox 93 93 96 O2 Delivery Nasal Cannula Nasal Cannula Nasal Cannula Nasal Cannula O2 Flow Rate 4.0 4.0 4.0 4.0 06/23/18 06/23/18 06/23/18 06/23/18 18:13 19:00 19:50 22:52 Temp 97.8 98.2 97.8 98.2 Pulse 85 92 Resp 18 18 B/P (MAP) 79/50 (60) 94/62 (73) Pulse Ox 91 94 O2 Delivery Nasal Cannula Nasal Cannula Nasal Cannula Nasal Cannula O2 Flow Rate 4.0 4.0 4.0 4.0 06/23/18 06/24/18 06/24/18 06/24/18 23:40 03:08 04:08 06:37 Temp 97.6 97.5 97.6 97.5 Pulse 84 83 Resp 18 18 B/P (MAP) 76/47 (57) 82/50 (61) Pulse Ox 93 92 93 94 O2 Delivery Nasal Cannula Nasal Cannula Nasal Cannula Nasal Cannula O2 Flow Rate 4.0 4.0 4.0 4.0 06/24/18 06/24/18 06/24/18 07:47 07:55 08:13 Pulse 83 B/P (MAP) 82/50 Pulse Ox 93 O2 Delivery Nasal Cannula Nasal Cannula O2 Flow Rate 4.0 4.0 Intake and Output 06/23/18 06/23/18 06/24/18 14:59 22:59 06:59 Intake Total 270 ml 680 ml 827.82 ml Output Total 500 ml 450 ml 600 ml Balance -230 ml 230 ml 227.82 ml JULIUS ENGEL MD Jun 24, 2018 10:31
--- NOTE | 2018-06-24 12:16 | PDOC ---
EKTA NOLASCO T[employer] PREPARER 06/24/18 1216: CARDIO Progress Notes Date and Time Date of Service 06/24/18 Time of Evaluation 1115 Subjective Subjective: No Chest Pain, No shortness of breath, Other (LE edema persists) Vitals Vitals Vital Signs Date Time Temp Pulse Resp B/P (MAP) Pulse Ox O2 Delivery O2 Flow Rate FiO2 06/24/18 11:13 91 Nasal Cannula 4.0 06/24/18 11:07 97.5 90 91/64 (73) 97.5 06/24/18 06:37 18 Weight Weight [ ] Input and Output Intake and Output Intake and Output 06/24/18 07:00 Intake Total 1777.82 ml Output Total 1550 ml Balance 227.82 ml Intake Oral 1200 ml IV Total 577.82 ml Output Urine Total 1550 ml Laboratory Labs Laboratory Tests Test 06/23/18 12:14 06/23/18 16:49 06/23/18 20:44 06/24/18 07:48 Glucose (Fingerstick) 127 mg/dL (70-99) 149 mg/dL (70-99) 134 mg/dL (70-99) 104 mg/dL (70-99) Test 06/24/18 08:50 White Blood Count 4.1 x10^3/uL (4.0-11.0) Red Blood Count 4.05 x10^6/uL (3.50-5.40) Hemoglobin 11.8 g/dL (12.0-15.5) Hematocrit 35.2 % (36.0-47.0) Mean Corpuscular Volume 87 fL (79-100) Mean Corpuscular Hemoglobin 29 pg (25-35) Mean Corpuscular Hemoglobin Concent 34 g/dL (31-37) Red Cell Distribution Width 17.3 % (11.5-14.5) Platelet Count 132 x10^3/uL (140-400) Sodium Level 124 mmol/L (136-145) Potassium Level 3.2 mmol/L (3.5-5.1) Chloride Level 85 mmol/L (98-107) Carbon Dioxide Level 33 mmol/L (21-32) Anion Gap 6 (6-14) Blood Urea Nitrogen 7 mg/dL (7-20) Creatinine 0.9 mg/dL (0.6-1.0) Estimated GFR (Cockcroft-Gault) 61.5 Glucose Level 104 mg/dL (70-99) Calcium Level 8.9 mg/dL (8.5-10.1) Magnesium Level 1.3 mg/dL (1.8-2.4) Physical Exam HEENT: Neck Supple W Full Motion Chest: Symmetric LUNGS: Clear to Auscultation Heart: S1S2, RRR Abdomen: Other (ascites) Extremities: Other (2+ bilateral LE edmea. LE erythema bilaterally) Neurology: alert, oriented, follow commands Assessment Assessment 1. Acute on chronic combine systolic/diastolic CHF; Echo showed LVEF 20-25%. On milrinone. BP marginal. CXR with worsening CHF 2. 3V CAD; CTS consulted- high risk for CABG. 3. Severe PAD 4. Polyvalvular disease; moderate , MR, and TR 5. LE edema 6. Hypokalemia 7. Hyponatremia 8. Hypomagnesemia 9. DM, II 10. NSVT; 20-beat noted this am on tele Recommendations Replace Mg, K Alvarez for accurate I and O Continue milrinone gtt Aggressive diuresis; not to hold for low BP unless patient is symptomatic- d/w RN Will need PAD addressed prior to high risk PCI. Awaiting vascular surgery recs Supportive care ALYSSIA PASCUAL MD 06/24/18 1457: CARDIO Progress Notes Plan Plan Pt. seen and examined. Agree with above RIBBON WINDER note. No acute events overnight. Will plan for alvarez insertion, aggressive diuresis (cath yesterday revealed LVEDP of nearly 40) Due to her severe PAD, BP may not be reliable, consider doppler and clinically monitoring her. Awaiting vascular decision regarding intervention. Discussed case with Dr. Andersen in IR. Will need endovascular bifurcating iliac stents and mid abdominal aortic stent graft. Will probably plan for CTA of abd/pelvis. Subsequent to this, will plan for high impella guided PCI of the LM/LAD. EKTA NOLASCO APRN Jun 24, 2018 12:16 ALYSSIA PASCUAL MD Jun 24, 2018 14:57
[2018-06-24] MEDS ORDERED: POTASSIUM CHLORIDE 20 MEQ TABLET.ER. PO ONE (12:30)
[2018-06-24] MEDS ORDERED: MAGNESIUM SULFATE 2GM 50 ML IV ONE (12:30)
[2018-06-24] MEDS: MILRINONE 20MG/100ML PREMIX 100 ML IV PRN (14:14)
--- NOTE | 2018-06-24 14:28 | RAD ---
CHEST AP ONLY Clinical indications: CHF follow-up study COMPARISON: June 18, 2018. Findings: Persistent bilateral perihilar pulmonary edema is seen. There has been an increase in pulmonary edema within both lung bases. Moderate-sized right-sided pleural effusion and small left sided pleural effusion are unchanged. Cephalization of pulmonary flow is again evident. No pneumothorax is seen. Heart size is enlarged but stable. Mediastinum is stable. IMPRESSION: Worsening CHF. Electronically signed by: Dillon Valdes MD (06/24/2018 2:25 PM) [place] [id number]
--- NOTE | 2018-06-24 17:18 | CONS ---
DATE OF CONSULTATION: REVIEW OF RECORDS: This is a 73-year-old female with a history of congestive heart failure, chronic in nature. She has been on diuretics. She has lower extremity edema. She also has hypertension. PAST SURGICAL HISTORY: Total knee replacement. SOCIAL HISTORY: Did smoke, just stopped recently last year. Denies alcohol or drug use. ALLERGIES: PENICILLIN. MEDICATIONS: Reviewed. Blood work is reviewed. Glucose is 137, moderately elevated. She has been seen by a thoracic surgeon, and he feels that her coronary artery disease is so severe that she would not be a good surgical candidate. PHYSICAL EXAMINATION: DERMAL: The patient has very severe chronic onychogryphosis, onycholysis, onychomycosis of all 10 toenails of longstanding duration. Decreased turgor, absence of hair growth. VASCULAR: Pedal pulses are absent, posterior tibial and dorsalis pedis. Capillary refilling time is approximately 5 seconds. NEUROLOGIC: The patient appears to have normal sensorium. MUSCULOSKELETAL: The patient has no significant bunions or hammertoe deformities that are contributory toward her problem that we are addressing today. ASSESSMENT: 1. History of diabetes with peripheral vascular disease. 2. Multiple medical problems including congestive heart failure, hyponatremia, obesity, chronic kidney disease stage 2. History of tobacco abuse, quit 1 year ago. Chronic obstructive pulmonary disease and hypokalemia. PLAN: Debridement of all mycotic nails was performed using double action nail forceps and rotary drill. The tip of the third toe, right foot, had a piece of skin that had grown up underneath the toe and that was hemorrhaged. This is controlled with a silver nitrate stick adequately and a Band-Aid applied. This is a very pinpoint hemorrhage, should not be problematic. The patient is encouraged to be seen on a more regular basis in light of her diabetes, bad circulation and the severity of her nail pathology. Thank very much for the opportunity in taking care of the patient. CARLOZ ARMSTRONG DPM DR: CORTEZ/rich JOB#: [id number] / [id number]
[2018-06-24] MEDS: CLINDAMYCIN HCL 150 MG CAPSULE. PO SCH (20:51)
[2018-06-24] MEDS: LATANOPROST 0.005% OPHTH SOLUTION 2.5ML BOTTLE. OU SCH (20:52)
[2018-06-24] MEDS: diphenhydrAMINE 50 MG/ML VIAL IVP PRN (20:54)
[2018-06-24] MEDS: INSULIN GLARGINE 300 UNITS/3 ML INSULN.PEN. SQ SCH (21:02)
[2018-06-25] VITALS (8 sets, daily range): BP systolic 89–110; BP diastolic 51–76
[2018-06-25] MEDS: IPRATRPIUM/ALBUTEROL 0.5/2.5MG 3 ML NEBU. NEB SCH ×6 (04:40→23:54)
[2018-06-25] MEDS: INSULIN LISPRO 300 UNITS/3 ML INSULN.PEN. SQ SCH ×3 (08:00→17:24)
--- NOTE | 2018-06-25 08:44 | PDOC ---
PROGRESS NOTES Chief Complaint Chief Complaint Triple vessel Disease by [facility] 06/22/18 Severe ischemic CM with EF 30% Acute on chronic CHF AECOPD/pulmonary HTN LE edema more to RLE with small superficial right posterior ulcer. PAD, poor pulses - OP arteriogram Hypothyroidism TSH 5 with T4 at goal on synthroid constipated - bowel regimen Hypokalemia . corrected Morbid obesity with likely GÓMEZ Severe onychmycoses DM2 - A1c 7.9 History of Present Illness History of Present Illness Not-open heart surgery candidate per T CVS I did update cardiology We'll talk with cardiology if she needs PCI instead So far on medical management Patient aware of her low EF and triple vessel disease Patient also aware of severe PAD plan for outpatient arteriogram by vascular surgery K is still low and mag low, still very short of breath. Swelling not much better. Diuresing well. No chest pain Plan K and mag replacement Await further cardiac recommendations home health on discharge - does not want SNU Some thoughts about [facility] transfer as mentioned during LOS meeting? Vitals Vitals Vital Signs Date Time Temp Pulse Resp B/P (MAP) Pulse Ox O2 Delivery O2 Flow Rate FiO2 06/25/18 08:30 Nasal Cannula 4.0 06/25/18 08:21 91 06/25/18 07:00 98.4 88 20 106/76 (86) 98.4 Physical Exam General: Alert, Oriented X3, Cooperative, mild distress Heart: Regular rate, Normal S1, Normal S2 Lungs: Clear, Crackles Abdomen: Normal bowel sounds, Soft Extremities: Other (edema) Skin: Other Labs LABS Laboratory Tests Test 06/24/18 08:50 06/24/18 12:19 06/24/18 17:09 06/24/18 20:47 White Blood Count 4.1 x10^3/uL (4.0-11.0) Red Blood Count 4.05 x10^6/uL (3.50-5.40) Hemoglobin 11.8 g/dL (12.0-15.5) Hematocrit 35.2 % (36.0-47.0) Mean Corpuscular Volume 87 fL (79-100) Mean Corpuscular Hemoglobin 29 pg (25-35) Mean Corpuscular Hemoglobin Concent 34 g/dL (31-37) Red Cell Distribution Width 17.3 % (11.5-14.5) Platelet Count 132 x10^3/uL (140-400) Sodium Level 124 mmol/L (136-145) Potassium Level 3.2 mmol/L (3.5-5.1) Chloride Level 85 mmol/L (98-107) Carbon Dioxide Level 33 mmol/L (21-32) Anion Gap 6 (6-14) Blood Urea Nitrogen 7 mg/dL (7-20) Creatinine 0.9 mg/dL (0.6-1.0) Estimated GFR (Cockcroft-Gault) 61.5 Glucose Level 104 mg/dL (70-99) Calcium Level 8.9 mg/dL (8.5-10.1) Magnesium Level 1.3 mg/dL (1.8-2.4) Glucose (Fingerstick) 127 mg/dL (70-99) 153 mg/dL (70-99) 175 mg/dL (70-99) Test 06/25/18 07:45 Glucose (Fingerstick) 140 mg/dL (70-99) Assessment and Plan Assessmemt and Plan Problems Medical Problems: (1) Congestive heart failure Status: Acute Comment Review of Relevant I have reviewed the following items rosangela (where applicable) has been applied. Labs Laboratory Tests Test 06/23/18 12:14 06/23/18 16:49 06/23/18 20:44 06/24/18 07:48 Glucose (Fingerstick) 127 mg/dL (70-99) 149 mg/dL (70-99) 134 mg/dL (70-99) 104 mg/dL (70-99) Test 06/24/18 08:50 06/24/18 12:19 06/24/18 17:09 06/24/18 20:47 White Blood Count 4.1 x10^3/uL (4.0-11.0) Red Blood Count 4.05 x10^6/uL (3.50-5.40) Hemoglobin 11.8 g/dL (12.0-15.5) Hematocrit 35.2 % (36.0-47.0) Mean Corpuscular Volume 87 fL (79-100) Mean Corpuscular Hemoglobin 29 pg (25-35) Mean Corpuscular Hemoglobin Concent 34 g/dL (31-37) Red Cell Distribution Width 17.3 % (11.5-14.5) Platelet Count 132 x10^3/uL (140-400) Sodium Level 124 mmol/L (136-145) Potassium Level 3.2 mmol/L (3.5-5.1) Chloride Level 85 mmol/L (98-107) Carbon Dioxide Level 33 mmol/L (21-32) Anion Gap 6 (6-14) Blood Urea Nitrogen 7 mg/dL (7-20) Creatinine 0.9 mg/dL (0.6-1.0) Estimated GFR (Cockcroft-Gault) 61.5 Glucose Level 104 mg/dL (70-99) Calcium Level 8.9 mg/dL (8.5-10.1) Magnesium Level 1.3 mg/dL (1.8-2.4) Glucose (Fingerstick) 127 mg/dL (70-99) 153 mg/dL (70-99) 175 mg/dL (70-99) Test 06/25/18 07:45 Glucose (Fingerstick) 140 mg/dL (70-99) Laboratory Tests Test 06/24/18 08:50 06/24/18 12:19 06/24/18 17:09 06/24/18 20:47 White Blood Count 4.1 x10^3/uL (4.0-11.0) Red Blood Count 4.05 x10^6/uL (3.50-5.40) Hemoglobin 11.8 g/dL (12.0-15.5) Hematocrit 35.2 % (36.0-47.0) Mean Corpuscular Volume 87 fL (79-100) Mean Corpuscular Hemoglobin 29 pg (25-35) Mean Corpuscular Hemoglobin Concent 34 g/dL (31-37) Red Cell Distribution Width 17.3 % (11.5-14.5) Platelet Count 132 x10^3/uL (140-400) Sodium Level 124 mmol/L (136-145) Potassium Level 3.2 mmol/L (3.5-5.1) Chloride Level 85 mmol/L (98-107) Carbon Dioxide Level 33 mmol/L (21-32) Anion Gap 6 (6-14) Blood Urea Nitrogen 7 mg/dL (7-20) Creatinine 0.9 mg/dL (0.6-1.0) Estimated GFR (Cockcroft-Gault) 61.5 Glucose Level 104 mg/dL (70-99) Calcium Level 8.9 mg/dL (8.5-10.1) Magnesium Level 1.3 mg/dL (1.8-2.4) Glucose (Fingerstick) 127 mg/dL (70-99) 153 mg/dL (70-99) 175 mg/dL (70-99) Test 06/25/18 07:45 Glucose (Fingerstick) 140 mg/dL (70-99) Medications Current Medications Furosemide (Lasix) 40 mg 1X ONCE IVP Last administered on 06/18/18 14:59; Start 06/18/18 at 14:00; Stop 06/18/18 at 14:47; Status DC Aspirin (Children'S Aspirin) 324 mg 1X ONCE PO Last administered on 06/18/18 14:59; Start 06/18/18 at 14:00; Stop 06/18/18 at 14:47; Status DC Potassium Chloride (KCl Oral Soln) 40 meq 1X ONCE PO Last administered on 14:59; Start 06/18/18 at 15:00; Stop 06/18/18 at 15:01; Status DC Furosemide (Lasix) 40 mg DAILY IVP ; Start 06/19/18 at 09:00; Stop 06/19/18 at 09: 00; Status DC Furosemide (Lasix) 40 mg [id number] IVP ; Start 06/19/18 at 09:00; Stop 06/19/18 at 09: 00; Status DC Lisinopril (Prinivil) 2.5 mg DAILY PO Last administered on 06/21/18 10:32; Start 06/19/18 at 09:00 Furosemide (Lasix) 40 mg BID92 IV Last administered on 06/24/18 14:20; Start 06/18/18 at 16:00 Spironolactone (Aldactone) 25 mg DAILY PO Last administered on 06/21/18 10:30; Start 06/19/18 at 09:00 Heparin Sodium (Porcine) (Heparin Sodium) 5,000 unit Q12HR SQ Last administered on 06/24/18 21:03; Start 06/18/18 at 16:00 Sodium Chloride (Normal Saline Flush) 3 ml QSHIFT PRN IV AFTER MEDS AND BLOOD DRAWS; Start 06/18/18 at 16:00 Ondansetron HCl (Zofran) 4 mg PRN Q4HRS PRN IV NAUSEA/VOMITING; Start 06/18/18 at 16:00 Acetaminophen (Tylenol) 650 mg PRN Q4HRS PRN PO TEMP OVER 100.4F OR MILD PAIN Last administered on 06/23/18 09:28; Start 06/18/18 at 16:00 Sodium Monofluorophosphate (Fleet Adult) 133 ml PRN DAILY PRN CO CONSTIPATION; Start 06/18/18 at 16:00 Diphenhydramine HCl (Benadryl) 25 mg PRN Q4HRS PRN IVP ITCHING Last administered on 06/24/18 20:54; Start 06/18/18 at 16:00 Docusate Sodium (Colace) 100 mg PRN BID PRN PO CONSTIPATION Last administered on 06/24/18 08:13; Start 06/18/18 at 16:00 Albuterol Sulfate (Ventolin Neb Soln) 2.5 mg PRN Q4HRS PRN NEB SHORTNESS OF BREATH; Start 06/18/18 at 16:00 Albuterol/ Ipratropium (Duoneb) 3 ml Q4HRS NEB Last administered on 06/25/18 08:20; Start 06/18/18 at 16:00 Aspirin (Ecotrin) 81 mg DAILY08 PO Last administered on 06/24/18 08:13; Start 06/19/18 at 08:00 Levothyroxine Sodium (Synthroid) 88 mcg DAILY08 PO Last administered on 08:13; Start 06/19/18 at 08:00 Latanoprost (Xalatan) 1 drop QHS OU Last administered on 06/24/18 20:52; Start 06/18/18 at 21:00 Potassium Chloride (KCl Oral Soln) 40 meq 1X ONCE PO Last administered on 13:43; Start 06/19/18 at 13:00; Stop 06/19/18 at 13:01; Status DC Insulin Glargine (Lantus) 5 units QHS SQ Last administered on 06/24/18 21:02; Start 06/19/18 at 21:00 Insulin Human Lispro (HumaLOG) 0-5 UNITS TIDWMEALS SQ Last administered on 4/6/ 19at 13:37; Start 06/19/18 at 12:30 Dextrose (Dextrose 50%-Water Syringe) 12.5 gm PRN Q15MIN PRN IV SEE COMMENTS; Start 06/19/18 at 12:15 Clindamycin Phosphate 50 ml @ 100 mls/hr Q8HRS IV Last administered on at 14:17; Start 06/21/18 at 10:00; Stop 06/24/18 at 15:00; Status DC Lactobacillus Rhamnosus (Culturelle) 1 cap BID PO Last administered on at 20:52; Start 06/21/18 at 21:00 Milrinone Lactate/ Dextrose 100 ml @ 4.022 mls/ hr CONT PRN IV SEE I/O RECORD Last administered on 06/24/18at 14:14; Start 06/22/18 at 13:00 Iodixanol (Visipaque 320) 100 ml STK-MED ONCE .ROUTE ; Start 06/23/18 at 06:35; Stop 06/23/18 at 06:36; Status DC Lidocaine HCl (Lidocaine 1% 20ml Vial) 20 ml STK-MED ONCE .ROUTE ; Start at 06:35; Stop 06/23/18 at 06:36; Status DC Heparin Sodium/ Sodium Chloride 1,500 ml @ As Directed STK-MED ONCE .ROUTE ; Start 06/23/18 at 06:35; Stop 06/23/18 at 06:36; Status DC Iodixanol (Visipaque 320) 100 ml STK-MED ONCE .ROUTE ; Start 06/23/18 at 07:26; Stop 06/23/18 at 07:27; Status DC Midazolam HCl (Versed) 2 mg STK-MED ONCE .ROUTE ; Start 06/23/18 at 07:30; Stop 06/23/18 at 07:31; Status DC Fentanyl Citrate (Fentanyl 2ml Vial) 100 mcg STK-MED ONCE .ROUTE ; Start at 07:30; Stop 06/23/18 at 07:31; Status DC Verapamil HCl (Verapamil) 5 mg STK-MED ONCE .ROUTE ; Start 06/23/18 at 07:30; Stop 06/23/18 at 07:31; Status DC Heparin Sodium (Porcine) (Heparin Sodium) 10,000 unit STK-MED ONCE .ROUTE ; Start 06/23/18 at 07:30; Stop 06/23/18 at 07:31; Status DC Nitroglycerin (Nitroglycerin) 200 mcg STK-MED ONCE .ROUTE ; Start 06/23/18 at 07 :30; Stop 06/23/18 at 07:31; Status DC Nitroglycerin (Nitroglycerin) 200 mcg 1X ONCE IART Last administered on 08:20; Start 06/23/18 at 08:15; Stop 06/23/18 at 08:18; Status DC Verapamil HCl (Verapamil) 2.5 mg 1X ONCE IART Last administered on 06/23/18at 08:22; Start 06/23/18 at 08:15; Stop 06/23/18 at 08:18; Status DC Heparin Sodium (Porcine) (Heparin Sodium) 2,500 unit 1X ONCE IART Last administered on 06/23/18 08:23; Start 06/23/18 at 08:15; Stop 06/23/18 at 08:18 ; Status DC Heparin Sodium/ Sodium Chloride (HEPARIN for ARTERIAL LINE FLUSH) 1,000 unit 1X ONCE IART Last administered on 06/23/18 08:20; Start 06/23/18 at 08:15; Stop 06/23/18 at 08:18; Status DC Heparin Sodium/ Sodium Chloride (HEPARIN for ARTERIAL LINE FLUSH) 1,000 unit 1X ONCE IART Last administered on 06/23/18 08:20; Start 06/23/18 at 08:15; Stop 06/23/18 at 08:18; Status DC Midazolam HCl (Versed) 1.5 mg 1X ONCE IV Last administered on 06/23/18 08:21 ; Start 06/23/18 at 08:15; Stop 06/23/18 at 08:18; Status DC Fentanyl Citrate (Fentanyl 2ml Vial) 75 mcg 1X ONCE IV Last administered on 08:22; Start 06/23/18 at 08:15; Stop 06/23/18 at 08:18; Status DC Iodixanol (Visipaque 320) 99 ml 1X ONCE IART Last administered on 06/23/18 08 :20; Start 06/23/18 at 08:15; Stop 06/23/18 at 08:18; Status DC Lidocaine HCl (Lidocaine 1% 20ml Vial) 1 ml 1X ONCE INJ Last administered on at 08:20; Start 06/23/18 at 08:15; Stop 06/23/18 at 08:18; Status DC Info (CONTRAST GIVEN -- Rx MONITORING) 1 each PRN DAILY PRN MC SEE COMMENTS; Start 06/23/18 at 08:30; Stop 06/25/18 at 08:29; Status DC Sodium Chloride 250 ml @ 250 mls/hr 1X ONCE IV Last administered on at 11:07; Start 06/23/18 at 11:15; Stop 06/23/18 at 12:14; Status DC Furosemide (Lasix) 40 mg 1X ONCE IVP Last administered on 06/23/18at 20:46; Start 06/23/18 at 20:15; Stop 06/23/18 at 20:19; Status DC Magnesium Sulfate 50 ml @ 25 mls/hr 1X ONCE IV Last administered on 06/24/18at 14:13; Start 06/24/18 at 12:30; Stop 06/24/18 at 14:29; Status DC Potassium Chloride (Klor-Con) 40 meq 1X ONCE PO Last administered on at 14:14; Start 06/24/18 at 12:30; Stop 06/24/18 at 12:31; Status DC Clindamycin HCl (Cleocin) 300 mg QID PO Last administered on 06/24/18at 20:51; Start 06/24/18 at 21:00 Active Scripts Active Clindamycin Hcl 300 Mg Capsule 300 Mg PO QID 7 Days Lasix (Furosemide) 40 Mg Tablet 40 Mg PO BID 14 Days Aldactone (Spironolactone) 25 Mg Tablet 25 Mg PO DAILY MDD 1 Lisinopril 5 Mg Tablet 2.5 Mg PO DAILY MDD 1 Proair Hfa (Albuterol Sulfate) 8.5 Gm Hfa.aer.ad 2.5 Mg NEB PRN Q4HRS PRN MDD 1 Reported Aspir-Low (Aspirin) 81 Mg Tablet.dr 1 Tab PO DAILY Triamterene-Hctz 37.5-25 Mg Cp (Triamterene/Hydrochlorothiazid) 1 Each Capsule 1 Cap PO DAILY Synthroid (Levothyroxine Sodium) 88 Mcg Tablet 1 Tab PO DAILY Latanoprost 2.5 Ml Drops 1 Drop EACHEYE QHS Vitals/I & O Vital Sign - Last 24 Hours 06/24/18 06/24/18 06/24/18 06/24/18 11:07 11:13 14:20 15:00 Temp 97.5 97.7 97.5 97.7 Pulse 90 94 92 Resp 18 B/P (MAP) 91/64 (73) 94/50 (65) 85/50 (62) Pulse Ox 93 91 96 O2 Delivery Nasal Cannula Nasal Cannula Nasal Cannula O2 Flow Rate 4.0 4.0 4.0 06/24/18 06/24/18 06/24/18 06/24/18 15:30 16:15 17:15 18:15 Pulse 92 92 93 B/P (MAP) 95/61 (72) 98/65 (76) 90/62 (71) Pulse Ox 96 O2 Delivery Nasal Cannula O2 Flow Rate 4.0 06/24/18 06/24/18 06/24/18 06/24/18 18:59 20:00 20:26 22:44 Temp 97.9 98.0 97.9 98.0 Pulse 96 92 Resp 20 20 B/P (MAP) 88/51 (63) 92/61 (71) Pulse Ox 94 95 O2 Delivery Nasal Cannula Nasal Cannula Nasal Cannula Nasal Cannula O2 Flow Rate 4.0 4.0 4.0 4.0 06/24/18 06/25/18 06/25/18 06/25/18 23:49 02:58 07:00 08:21 Temp 97.6 98.4 97.6 98.4 Pulse 87 88 Resp 18 20 B/P (MAP) 99/65 (76) 106/76 (86) Pulse Ox 95 95 94 91 O2 Delivery Nasal Cannula Room Air Nasal Cannula Nasal Cannula O2 Flow Rate 4.0 4.0 4.0 4.0 06/25/18 08:30 O2 Delivery Nasal Cannula O2 Flow Rate 4.0 Intake and Output 06/24/18 06/24/18 06/25/18 15:00 23:00 07:00 Intake Total 100 ml 950 ml 298.3 ml Output Total 150 ml 1300 ml Balance -50 ml -350 ml 298.3 ml JAN FLORES MD Jun 25, 2018 08:44
[2018-06-25] MEDS: LISINOPRIL 5 MG TABLET. PO SCH (09:00)
[2018-06-25] MEDS: SPIRONOLACTONE 25 MG TABLET PO SCH (09:00)
[2018-06-25] MEDS: CLINDAMYCIN HCL 150 MG CAPSULE. PO SCH ×4 (09:19→21:40)
[2018-06-25] MEDS: ASPIRIN ENTERIC COATED 81 MG TABLET.DR. PO SCH (09:20)
[2018-06-25] MEDS: DOCUSATE SODIUM 100 MG CAPSULE. PO PRN (09:20)
[2018-06-25] MEDS: LEVOTHYROXINE 88 MCG TABLET PO SCH (09:21)
[2018-06-25] MEDS: LACTOBACILLUS RHAMNOSUS GG 1 CAPSULE. PO SCH ×2 (09:21→21:40)
[2018-06-25] MEDS: FUROSEMIDE 40 MG/4 ML VIAL. IV SCH ×2 (09:22→14:09)
[2018-06-25] MEDS: HEPARIN for SUB-Q USE 5,000 UNIT/ML VIAL. SQ SCH ×2 (09:37→21:00)
--- NOTE | 2018-06-25 09:40 | PDOC ---
NURA BELL ENVELOPE PRESS OPERATOR 06/25/18 0940: CARDIO Progress Notes Date and Time Date of Service 06/25/2018 Time of Evaluation 0930 Subjective Subjective: No Chest Pain, No Palpitations, Other (SOA with exertion) Vitals Vitals Vital Signs Date Time Temp Pulse Resp B/P (MAP) Pulse Ox O2 Delivery O2 Flow Rate FiO2 06/25/18 08:30 Nasal Cannula 4.0 06/25/18 08:21 91 06/25/18 07:00 98.4 88 20 106/76 (86) 98.4 Weight Weight [ ] Input and Output Intake and Output Intake and Output 06/25/18 07:00 Intake Total 1348.3 ml Output Total 1450 ml Balance -101.7 ml Intake Oral 1200 ml IV Total 148.3 ml Output Urine Total 1450 ml Laboratory Labs Laboratory Tests Test 06/24/18 12:19 06/24/18 17:09 06/24/18 20:47 06/25/18 07:45 Glucose (Fingerstick) 127 mg/dL (70-99) 153 mg/dL (70-99) 175 mg/dL (70-99) 140 mg/dL (70-99) Physical Exam HEENT: Neck Supple W Full Motion Chest: Symmetric LUNGS: Other (basilar crackles) Heart: S1S2, RRR (SR) Abdomen: Other (ascites) Extremities: Other (3+ bilateral LE edmea. LLE erythema) Neurology: alert, oriented, follow commands Assessment Assessment 1. Acute on chronic combine systolic/diastolic CHF; Echo showed LVEF 20-25%. On milrinone. BP marginal 2. 3V CAD per LHC 3. Severe PAD 4. Polyvalvular disease; moderate , MR, and TR 5. LE edema with possible cellulitis to LLE 6. Hypokalemia 7. Hyponatremia: due to CHF 8. Hypomagnesemia 9. DM, II 10. NSVT 11. ICM: EF 20-25% Recommendations Replace Mg, K Avila for accurate I and O. Tolerated ambulation with PT Continue milrinone gtt and lasix therapy. May hold other BP meds per BP trend Aggressive diuresis; not to hold for low BP unless patient is symptomatic- discussed with staff Awaiting film review per vascular surgery in regards significant PAD for further planning of PCI with need of impella for she is is a high risk candidate for CABG Supportive care ALYSSIA PASCUAL MD 06/25/18 1709: CARDIO Progress Notes Plan Plan Pt. seen and examined. Agree with above STARCHMAKER note. Continue diuresis. Awaiting vascular recs. Spoke to Dr. Perrin this morning, he has not yet had a chance to review films. Will notify us of their plans sina, then will determine timing of coronary intervention. Thanks. Continue milrinone. NURA BELL APRN Jun 25, 2018 09:40 ALYSSIA PASCUAL MD Jun 25, 2018 17:09
[2018-06-25 10:45] LABS: CALCIUM 8.5 mg/dL (8.5-10.1); CREATININE 0.8 mg/dL (0.6-1.0); GFR 70.5; MAGNESIUM 1.7 mg/dL (1.8-2.4); POTASSIUM 3.4 mmol/L (3.5-5.1)
[2018-06-25] MEDS ORDERED: MAGNESIUM SULFATE 2GM 50 ML IV ONE (11:15)
[2018-06-25] MEDS: POTASSIUM CHLORIDE 20 MEQ TABLET.ER. PO SCH (12:03)
[2018-06-25] MEDS: MILRINONE 20MG/100ML PREMIX 100 ML IV PRN (17:20)
[2018-06-25] MEDS: LATANOPROST 0.005% OPHTH SOLUTION 2.5ML BOTTLE. OU SCH (21:39)
[2018-06-25] MEDS: INSULIN GLARGINE 300 UNITS/3 ML INSULN.PEN. SQ SCH (21:51)
[2018-06-26] VITALS (11 sets, daily range): BP systolic 86–107; BP diastolic 53–66
[2018-06-26] MEDS: IPRATRPIUM/ALBUTEROL 0.5/2.5MG 3 ML NEBU. NEB SCH ×6 (04:00→23:45)
[2018-06-26 05:43] LABS: ALBUMIN 2.8 g/dL (3.4-5.0); CALCIUM 8.6 mg/dL (8.5-10.1); CREATININE 0.7 mg/dL (0.6-1.0); GFR 82.3; PHOSPHORUS 3.1 mg/dL (2.6-4.7); POTASSIUM 3.5 mmol/L (3.5-5.1)
[2018-06-26] MEDS ORDERED: POTASSIUM CHLORIDE 20 MEQ TABLET.ER. PO ONE (07:45)
--- NOTE | 2018-06-26 07:45 | PDOC ---
PROGRESS NOTES Chief Complaint Chief Complaint Triple vessel Disease by [facility] 06/22/18 Severe ischemic CM with EF 30% Acute on chronic CHF AECOPD/pulmonary HTN LE edema more to RLE with small superficial right posterior ulcer. PAD, poor pulses - OP arteriogram Hypothyroidism TSH 5 with T4 at goal on synthroid constipated - bowel regimen Hypokalemia . corrected Morbid obesity with likely GÓMEZ Severe onychmycoses DM2 - A1c 7.9 History of Present Illness History of Present Illness So far on medical management Patient aware of her low EF and triple vessel disease Patient also aware of severe PAD plan for outpatient arteriogram by vascular surgery K is still low and mag replace, still very short of breath. Swelling not much better. Diuresing well. No chest pain. Wants to boost up in bed Plan K and mag replacement Not-open heart surgery candidate per [facility], but does require PCI and has severe PAD bilateral LE, plan to treat both CAD and PAD on Thursday06/29/18 home health on discharge - does not want SNU Vitals Vitals Vital Signs Date Time Temp Pulse Resp B/P (MAP) Pulse Ox O2 Delivery O2 Flow Rate FiO2 06/26/18 05:05 91 97/63 (74) 06/26/18 04:08 92 Nasal Cannula 4.0 06/26/18 03:00 97.8 97.8 06/25/18 23:00 16 Physical Exam General: Alert, Oriented X3, Cooperative, mild distress Heart: Regular rate, Normal S1, Normal S2 Lungs: Clear, Crackles Abdomen: Normal bowel sounds, Soft Extremities: Other (edema) Skin: Other Labs LABS Laboratory Tests Test 06/25/18 10:05 06/25/18 12:13 06/25/18 17:00 06/26/18 04:00 Sodium Level 123 mmol/L (136-145) 122 mmol/L (136-145) Potassium Level 3.4 mmol/L (3.5-5.1) 3.5 mmol/L (3.5-5.1) Chloride Level 84 mmol/L (98-107) 84 mmol/L (98-107) Carbon Dioxide Level 31 mmol/L (21-32) 31 mmol/L (21-32) Anion Gap 8 (6-14) 7 (6-14) Blood Urea Nitrogen 6 mg/dL (7-20) 5 mg/dL (7-20) Creatinine 0.8 mg/dL (0.6-1.0) 0.7 mg/dL (0.6-1.0) Estimated GFR (Cockcroft-Gault) 70.5 82.3 Glucose Level 141 mg/dL (70-99) 118 mg/dL (70-99) Calcium Level 8.5 mg/dL (8.5-10.1) 8.6 mg/dL (8.5-10.1) Phosphorus Level 3.0 mg/dL (2.6-4.7) 3.1 mg/dL (2.6-4.7) Magnesium Level 1.7 mg/dL (1.8-2.4) 2.0 mg/dL (1.8-2.4) Albumin 3.0 g/dL (3.4-5.0) 2.8 g/dL (3.4-5.0) Glucose (Fingerstick) 144 mg/dL (70-99) 217 mg/dL (70-99) Assessment and Plan Assessmemt and Plan Problems Medical Problems: (1) Congestive heart failure Status: Acute Comment Review of Relevant I have reviewed the following items rosangela (where applicable) has been applied. Labs Laboratory Tests Test 06/24/18 07:48 06/24/18 08:50 06/24/18 12:19 06/24/18 17:09 Glucose (Fingerstick) 104 mg/dL (70-99) 127 mg/dL (70-99) 153 mg/dL (70-99) White Blood Count 4.1 x10^3/uL (4.0-11.0) Red Blood Count 4.05 x10^6/uL (3.50-5.40) Hemoglobin 11.8 g/dL (12.0-15.5) Hematocrit 35.2 % (36.0-47.0) Mean Corpuscular Volume 87 fL (79-100) Mean Corpuscular Hemoglobin 29 pg (25-35) Mean Corpuscular Hemoglobin Concent 34 g/dL (31-37) Red Cell Distribution Width 17.3 % (11.5-14.5) Platelet Count 132 x10^3/uL (140-400) Sodium Level 124 mmol/L (136-145) Potassium Level 3.2 mmol/L (3.5-5.1) Chloride Level 85 mmol/L (98-107) Carbon Dioxide Level 33 mmol/L (21-32) Anion Gap 6 (6-14) Blood Urea Nitrogen 7 mg/dL (7-20) Creatinine 0.9 mg/dL (0.6-1.0) Estimated GFR (Cockcroft-Gault) 61.5 Glucose Level 104 mg/dL (70-99) Calcium Level 8.9 mg/dL (8.5-10.1) Magnesium Level 1.3 mg/dL (1.8-2.4) Test 06/24/18 20:47 06/25/18 07:45 06/25/18 10:05 06/25/18 12:13 Glucose (Fingerstick) 175 mg/dL (70-99) 140 mg/dL (70-99) 144 mg/dL (70-99) Sodium Level 123 mmol/L (136-145) Potassium Level 3.4 mmol/L (3.5-5.1) Chloride Level 84 mmol/L (98-107) Carbon Dioxide Level 31 mmol/L (21-32) Anion Gap 8 (6-14) Blood Urea Nitrogen 6 mg/dL (7-20) Creatinine 0.8 mg/dL (0.6-1.0) Estimated GFR (Cockcroft-Gault) 70.5 Glucose Level 141 mg/dL (70-99) Calcium Level 8.5 mg/dL (8.5-10.1) Phosphorus Level 3.0 mg/dL (2.6-4.7) Magnesium Level 1.7 mg/dL (1.8-2.4) Albumin 3.0 g/dL (3.4-5.0) Test 06/25/18 17:00 06/26/18 04:00 Glucose (Fingerstick) 217 mg/dL (70-99) Sodium Level 122 mmol/L (136-145) Potassium Level 3.5 mmol/L (3.5-5.1) Chloride Level 84 mmol/L (98-107) Carbon Dioxide Level 31 mmol/L (21-32) Anion Gap 7 (6-14) Blood Urea Nitrogen 5 mg/dL (7-20) Creatinine 0.7 mg/dL (0.6-1.0) Estimated GFR (Cockcroft-Gault) 82.3 Glucose Level 118 mg/dL (70-99) Calcium Level 8.6 mg/dL (8.5-10.1) Phosphorus Level 3.1 mg/dL (2.6-4.7) Magnesium Level 2.0 mg/dL (1.8-2.4) Albumin 2.8 g/dL (3.4-5.0) Laboratory Tests Test 06/25/18 10:05 06/25/18 12:13 06/25/18 17:00 06/26/18 04:00 Sodium Level 123 mmol/L (136-145) 122 mmol/L (136-145) Potassium Level 3.4 mmol/L (3.5-5.1) 3.5 mmol/L (3.5-5.1) Chloride Level 84 mmol/L (98-107) 84 mmol/L (98-107) Carbon Dioxide Level 31 mmol/L (21-32) 31 mmol/L (21-32) Anion Gap 8 (6-14) 7 (6-14) Blood Urea Nitrogen 6 mg/dL (7-20) 5 mg/dL (7-20) Creatinine 0.8 mg/dL (0.6-1.0) 0.7 mg/dL (0.6-1.0) Estimated GFR (Cockcroft-Gault) 70.5 82.3 Glucose Level 141 mg/dL (70-99) 118 mg/dL (70-99) Calcium Level 8.5 mg/dL (8.5-10.1) 8.6 mg/dL (8.5-10.1) Phosphorus Level 3.0 mg/dL (2.6-4.7) 3.1 mg/dL (2.6-4.7) Magnesium Level 1.7 mg/dL (1.8-2.4) 2.0 mg/dL (1.8-2.4) Albumin 3.0 g/dL (3.4-5.0) 2.8 g/dL (3.4-5.0) Glucose (Fingerstick) 144 mg/dL (70-99) 217 mg/dL (70-99) Medications Current Medications Furosemide (Lasix) 40 mg 1X ONCE IVP Last administered on 06/18/18at 14:59; Start 06/18/18 at 14:00; Stop 06/18/18 at 14:47; Status DC Aspirin (Children'S Aspirin) 324 mg 1X ONCE PO Last administered on 06/18/18 14:59; Start 06/18/18 at 14:00; Stop 06/18/18 at 14:47; Status DC Potassium Chloride (KCl Oral Soln) 40 meq 1X ONCE PO Last administered on 14:59; Start 06/18/18 at 15:00; Stop 06/18/18 at 15:01; Status DC Furosemide (Lasix) 40 mg DAILY IVP ; Start 06/19/18 at 09:00; Stop 06/19/18 at 09: 00; Status DC Furosemide (Lasix) 40 mg [id number] IVP ; Start 06/19/18 at 09:00; Stop 06/19/18 at 09: 00; Status DC Lisinopril (Prinivil) 2.5 mg DAILY PO Last administered on 06/21/18 10:32; Start 06/19/18 at 09:00 Furosemide (Lasix) 40 mg [id number] IV Last administered on 06/25/18 14:09; Start 06/18/18 at 16:00 Spironolactone (Aldactone) 25 mg DAILY PO Last administered on 06/21/18 10:30; Start 06/19/18 at 09:00 Heparin Sodium (Porcine) (Heparin Sodium) 5,000 unit Q12HR SQ Last administered on 06/25/18 21:00; Start 06/18/18 at 16:00 Sodium Chloride (Normal Saline Flush) 3 ml QSHIFT PRN IV AFTER MEDS AND BLOOD DRAWS; Start 06/18/18 at 16:00 Ondansetron HCl (Zofran) 4 mg PRN Q4HRS PRN IV NAUSEA/VOMITING; Start 06/18/18 at 16:00 Acetaminophen (Tylenol) 650 mg PRN Q4HRS PRN PO TEMP OVER 100.4F OR MILD PAIN Last administered on 06/23/18 09:28; Start 06/18/18 at 16:00 Sodium Monofluorophosphate (Fleet Adult) 133 ml PRN DAILY PRN [place] CONSTIPATION; Start 06/18/18 at 16:00 Diphenhydramine HCl (Benadryl) 25 mg PRN Q4HRS PRN IVP ITCHING Last administered on 06/24/18 20:54; Start 06/18/18 at 16:00 Docusate Sodium (Colace) 100 mg PRN BID PRN PO CONSTIPATION Last administered on 06/25/18 09:20; Start 06/18/18 at 16:00 Albuterol Sulfate (Ventolin Neb Soln) 2.5 mg PRN Q4HRS PRN NEB SHORTNESS OF BREATH; Start 06/18/18 at 16:00 Albuterol/ Ipratropium (Duoneb) 3 ml Q4HRS NEB Last administered on 06/26/18 04:00; Start 06/18/18 at 16:00 Aspirin (Ecotrin) 81 mg DAILY08 PO Last administered on 06/25/18 09:20; Start 06/19/18 at 08:00 Levothyroxine Sodium (Synthroid) 88 mcg DAILY08 PO Last administered on 09:21; Start 06/19/18 at 08:00 Latanoprost (Xalatan) 1 drop QHS OU Last administered on 06/25/18 21:39; Start 06/18/18 at 21:00 Potassium Chloride (KCl Oral Soln) 40 meq 1X ONCE PO Last administered on 13:43; Start 06/19/18 at 13:00; Stop 06/19/18 at 13:01; Status DC Insulin Glargine (Lantus) 5 units QHS SQ Last administered on 06/25/18 21:51; Start 06/19/18 at 21:00 Insulin Human Lispro (HumaLOG) 0-5 UNITS TIDWMEALS SQ Last administered on 06/25 17:24; Start 06/19/18 at 12:30 Dextrose (Dextrose 50%-Water Syringe) 12.5 gm PRN Q15MIN PRN IV SEE COMMENTS; Start 06/19/18 at 12:15 Clindamycin Phosphate 50 ml @ 100 mls/hr Q8HRS IV Last administered on 14:17; Start 06/21/18 at 10:00; Stop 06/24/18 at 15:00; Status DC Lactobacillus Rhamnosus (Culturelle) 1 cap BID PO Last administered on 21:40; Start 06/21/18 at 21:00 Milrinone Lactate/ Dextrose 100 ml @ 4.022 mls/ hr CONT PRN IV SEE I/O RECORD Last administered on 06/25/18at 17:20; Start 06/22/18 at 13:00 Iodixanol (Visipaque 320) 100 ml STK-MED ONCE .ROUTE ; Start 06/23/18 at 06:35; Stop 06/23/18 at 06:36; Status DC Lidocaine HCl (Lidocaine 1% 20ml Vial) 20 ml STK-MED ONCE .ROUTE ; Start at 06:35; Stop 06/23/18 at 06:36; Status DC Heparin Sodium/ Sodium Chloride 1,500 ml @ As Directed STK-MED ONCE .ROUTE ; Start 06/23/18 at 06:35; Stop 06/23/18 at 06:36; Status DC Iodixanol (Visipaque 320) 100 ml STK-MED ONCE .ROUTE ; Start 06/23/18 at 07:26; Stop 06/23/18 at 07:27; Status DC Midazolam HCl (Versed) 2 mg STK-MED ONCE .ROUTE ; Start 06/23/18 at 07:30; Stop 06/23/18 at 07:31; Status DC Fentanyl Citrate (Fentanyl 2ml Vial) 100 mcg STK-MED ONCE .ROUTE ; Start at 07:30; Stop 06/23/18 at 07:31; Status DC Verapamil HCl (Verapamil) 5 mg STK-MED ONCE .ROUTE ; Start 06/23/18 at 07:30; Stop 06/23/18 at 07:31; Status DC Heparin Sodium (Porcine) (Heparin Sodium) 10,000 unit STK-MED ONCE .ROUTE ; Start 06/23/18 at 07:30; Stop 06/23/18 at 07:31; Status DC Nitroglycerin (Nitroglycerin) 200 mcg STK-MED ONCE .ROUTE ; Start 06/23/18 at 07 :30; Stop 06/23/18 at 07:31; Status DC Nitroglycerin (Nitroglycerin) 200 mcg 1X ONCE IART Last administered on at 08:20; Start 06/23/18 at 08:15; Stop 06/23/18 at 08:18; Status DC Verapamil HCl (Verapamil) 2.5 mg 1X ONCE IART Last administered on 06/23/18 08:22; Start 06/23/18 at 08:15; Stop 06/23/18 at 08:18; Status DC Heparin Sodium (Porcine) (Heparin Sodium) 2,500 unit 1X ONCE IART Last administered on 06/23/18 08:23; Start 06/23/18 at 08:15; Stop 06/23/18 at 08:18 ; Status DC Heparin Sodium/ Sodium Chloride (HEPARIN for ARTERIAL LINE FLUSH) 1,000 unit 1X ONCE IART Last administered on 06/23/18 08:20; Start 06/23/18 at 08:15; Stop 06/23/18 at 08:18; Status DC Heparin Sodium/ Sodium Chloride (HEPARIN for ARTERIAL LINE FLUSH) 1,000 unit 1X ONCE IART Last administered on 06/23/18 08:20; Start 06/23/18 at 08:15; Stop 06/23/18 at 08:18; Status DC Midazolam HCl (Versed) 1.5 mg 1X ONCE IV Last administered on 06/23/18 08:21 ; Start 06/23/18 at 08:15; Stop 06/23/18 at 08:18; Status DC Fentanyl Citrate (Fentanyl 2ml Vial) 75 mcg 1X ONCE IV Last administered on 08:22; Start 06/23/18 at 08:15; Stop 06/23/18 at 08:18; Status DC Iodixanol (Visipaque 320) 99 ml 1X ONCE IART Last administered on 06/23/18 08 :20; Start 06/23/18 at 08:15; Stop 06/23/18 at 08:18; Status DC Lidocaine HCl (Lidocaine 1% 20ml Vial) 1 ml 1X ONCE INJ Last administered on 08:20; Start 06/23/18 at 08:15; Stop 06/23/18 at 08:18; Status DC Info (CONTRAST GIVEN -- Rx MONITORING) 1 each PRN DAILY PRN MC SEE COMMENTS; Start 06/23/18 at 08:30; Stop 06/25/18 at 08:29; Status DC Sodium Chloride 250 ml @ 250 mls/hr 1X ONCE IV Last administered on 11:07; Start 06/23/18 at 11:15; Stop 4/10/19 at 12:14; Status DC Furosemide (Lasix) 40 mg 1X ONCE IVP Last administered on 06/23/18at 20:46; Start 06/23/18 at 20:15; Stop 06/23/18 at 20:19; Status DC Magnesium Sulfate 50 ml @ 25 mls/hr 1X ONCE IV Last administered on 06/24/18at 14:13; Start 06/24/18 at 12:30; Stop 06/24/18 at 14:29; Status DC Potassium Chloride (Klor-Con) 40 meq 1X ONCE PO Last administered on at 14:14; Start 06/24/18 at 12:30; Stop 06/24/18 at 12:31; Status DC Clindamycin HCl (Cleocin) 300 mg QID PO Last administered on 06/25/18at 21:40; Start 06/24/18 at 21:00 Potassium Chloride (Klor-Con) 40 meq DAILY PO Last administered on 06/25/18at 12 :03; Start 06/25/18 at 11:15 Magnesium Sulfate 50 ml @ 25 mls/hr 1X ONCE IV Last administered on 06/25/18at 12:07; Start 06/25/18 at 11:15; Stop 06/25/18 at 13:14; Status DC Active Scripts Active Clindamycin Hcl 300 Mg Capsule 300 Mg PO QID 7 Days Lasix (Furosemide) 40 Mg Tablet 40 Mg PO BID 14 Days Aldactone (Spironolactone) 25 Mg Tablet 25 Mg PO DAILY MDD 1 Lisinopril 5 Mg Tablet 2.5 Mg PO DAILY MDD 1 Proair Hfa (Albuterol Sulfate) 8.5 Gm Hfa.aer.ad 2.5 Mg NEB PRN Q4HRS PRN MDD 1 Reported Aspir-Low (Aspirin) 81 Mg Tablet.dr 1 Tab PO DAILY Triamterene-Hctz 37.5-25 Mg Cp (Triamterene/Hydrochlorothiazid) 1 Each Capsule 1 Cap PO DAILY Synthroid (Levothyroxine Sodium) 88 Mcg Tablet 1 Tab PO DAILY Latanoprost 2.5 Ml Drops 1 Drop EACHEYE QHS Vitals/I & O Vital Sign - Last 24 Hours 06/25/18 06/25/18 06/25/18 06/25/18 08:21 08:30 11:00 11:52 Temp 98.2 98.2 Pulse 86 Resp 20 B/P (MAP) 103/72 (82) Pulse Ox 91 95 O2 Delivery Nasal Cannula Nasal Cannula Nasal Cannula Nasal Cannula O2 Flow Rate 4.0 4.0 4.0 4.0 06/25/18 06/25/18 06/25/18 06/25/18 15:00 16:12 19:00 20:00 Temp 98.4 97.4 98.4 97.4 Pulse 88 92 Resp 20 18 B/P (MAP) 105/69 (81) 89/51 (64) Pulse Ox 96 93 O2 Delivery Nasal Cannula Nasal Cannula Nasal Cannula Nasal Cannula O2 Flow Rate 4.0 4.0 4.0 4.0 06/25/18 06/25/18 06/25/18 06/25/18 20:34 21:00 22:00 23:00 Temp 98.0 98.0 Pulse 90 92 92 Resp 16 B/P (MAP) 93/63 (73) 110/71 (84) 93/59 (70) Pulse Ox 92 94 O2 Delivery Nasal Cannula Nasal Cannula O2 Flow Rate 4.0 4.0 06/26/18 06/26/18 06/26/18 06/26/18 00:05 01:16 02:00 03:00 Temp 97.8 97.8 Pulse 88 84 86 90 B/P (MAP) 93/61 (72) 91/60 (70) 88/56 (67) 86/54 (65) Pulse Ox 93 O2 Delivery Nasal Cannula Nasal Cannula O2 Flow Rate 4.0 4.0 06/26/18 06/26/18 06/26/18 04:05 04:08 05:05 Pulse 90 91 B/P (MAP) 87/55 (66) 97/63 (74) Pulse Ox 92 O2 Delivery Nasal Cannula O2 Flow Rate 4.0 Intake and Output 06/25/18 06/25/18 06/26/18 14:59 22:59 06:59 Intake Total 150 ml 520 ml Output Total 800 ml 1150 ml 275 ml Balance -650 ml -630 ml -275 ml JAN FLORES MD Jun 26, 2018 07:45
[2018-06-26] MEDS: INSULIN LISPRO 300 UNITS/3 ML INSULN.PEN. SQ SCH ×3 (08:00→17:00)
[2018-06-26] MEDS: LISINOPRIL 5 MG TABLET. PO SCH (08:49)
[2018-06-26] MEDS: ASPIRIN ENTERIC COATED 81 MG TABLET.DR. PO SCH (08:49)
[2018-06-26] MEDS: SPIRONOLACTONE 25 MG TABLET PO SCH (08:49)
[2018-06-26] MEDS: LACTOBACILLUS RHAMNOSUS GG 1 CAPSULE. PO SCH ×2 (08:50→20:35)
[2018-06-26] MEDS: CLINDAMYCIN HCL 150 MG CAPSULE. PO SCH ×4 (08:50→20:35)
[2018-06-26] MEDS: LEVOTHYROXINE 88 MCG TABLET PO SCH (08:51)
[2018-06-26] MEDS: FUROSEMIDE 40 MG/4 ML VIAL. IV SCH ×2 (08:51→13:18)
[2018-06-26] MEDS: HEPARIN for SUB-Q USE 5,000 UNIT/ML VIAL. SQ SCH ×2 (09:07→20:40)
--- NOTE | 2018-06-26 09:57 | PDOC ---
Provider Note Provider Note Vascular consult follow-up 73 year old female with left main disease and severe peripheral vascular disease. She is not a candidate for coronary artery bypass graft. Her access vessels are severely diseased with bilateral high-grade common iliac artery stenosis and an eccentric bulky plaque of the infrarenal abdominal aorta making access for high risk percutaneous coronary artery intervention problematic. I have reviewed the arteriographic findings. The patient is moderately obese. She does not have palpable femoral pulses on either side and she has significant bilateral lower extremity edema as well as a foot ulcer. Have recommended percutaneous access to both common femoral arteries and bilateral iliac artery angioplasty and stent. This should relieve the high- grade common iliac artery stenosis and improve perfusion to her lower extremities. With regard to be eccentric calcific plaque in the infrarenal aorta it is unlikely that this can be treated and provide a normal-appearing lumen but I believe it can be significantly improved with a DBX angioplasty/stent graft. This should be sufficient to allow excellent access for Impella device. Discussed this with Dr. Solano who is in agreement. Discussed this at length with the patient. She understands that this is a significant undertaking for her given the severity of her underlying lung disease, vascular disease, and cardiac disease. We'll try to schedule this for combined procedure to treat both her aortoiliac disease and coronary artery disease on Thursday. The planned operative procedure, risks, complications, and alternative therapies , have all been reviewed with the patient. She understands and agrees to proceed as outlined. ELSIE BEDOLLA MD Jun 26, 2018 09:57
[2018-06-26] MEDS ORDERED: CLOPIDOGREL BISULFATE 75 MG TABLET PO ONE (11:00)
--- NOTE | 2018-06-26 11:02 | PDOC ---
CARDIOLOGY PROGRESS NOTE SUBJECTIVE: No acute events overnight. No chest pain. Dyspnea stable. Mildly improved per patient. OBJECTIVE: Vital SIgns: Vital Signs Date Time Temp Pulse Resp B/P (MAP) Pulse Ox O2 Delivery O2 Flow Rate FiO2 06/26/18 08:49 95 107/63 06/26/18 08:04 95 Nasal Cannula 4.0 06/26/18 07:00 97.5 24 97.5 I & O Intake and Output 06/26/18 07:00 Intake Total 670 ml Output Total 2225 ml Balance -1555 ml Intake Oral 620 ml IV Total 50 ml Output Urine Total 2225 ml Objective: Edema of the BLE improved, legs are softer. Bilateral rales. Obese abd. radial pulses stable. CURRENT MEDICATIONS: Milrinone and lasix DIAGNOSTIC TESTING: Na 122 ASSESSMENT: 1. Severe ischemic CMP 2. severe aorto-iliac disease with PAD, epifanio 4/5 3. COPD 4. Obesity PLAN: 1. Case discussed with Dr. Perrin. Plan for high risk PVI and PCI with Impella on thursday. 2. I had a long discussion w/ the patient regarding the merits of these procedures, risks, benefits and alternatives. 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 She needs to be able to get back on her own. She is not a candidate for hospice/palliative care due to her social issues. She understands the risks and wishes to proceed. ALYSSIA PASCUAL MD Jun 26, 2018 11:02
[2018-06-26] MEDS: POTASSIUM CHLORIDE 20 MEQ TABLET.ER. PO SCH (13:10)
[2018-06-26] MEDS: LATANOPROST 0.005% OPHTH SOLUTION 2.5ML BOTTLE. OU SCH (20:35)
[2018-06-26] MEDS: INSULIN GLARGINE 300 UNITS/3 ML INSULN.PEN. SQ SCH (20:43)
[2018-06-26] MEDS: MILRINONE 20MG/100ML PREMIX 100 ML IV PRN (21:00)
[2018-06-27 02:44] VITALS: BP 93/61
[2018-06-27 04:26] LABS: ALBUMIN 2.9 g/dL (3.4-5.0); CALCIUM 8.8 mg/dL (8.5-10.1); CREATININE 0.7 mg/dL (0.6-1.0); GFR 82.3; MAGNESIUM 1.8 mg/dL (1.8-2.4); PHOSPHORUS 3.2 mg/dL (2.6-4.7)
[2018-06-27] MEDS: IPRATRPIUM/ALBUTEROL 0.5/2.5MG 3 ML NEBU. NEB SCH ×6 (04:40→22:45)
[2018-06-27 07:00] VITALS: BP 112/69
[2018-06-27] MEDS: INSULIN LISPRO 300 UNITS/3 ML INSULN.PEN. SQ SCH ×3 (08:00→17:26)
[2018-06-27] MEDS: ASPIRIN ENTERIC COATED 81 MG TABLET.DR. PO SCH (08:40)
[2018-06-27] MEDS: CLINDAMYCIN HCL 150 MG CAPSULE. PO SCH ×4 (08:40→21:08)
[2018-06-27] MEDS: CLOPIDOGREL BISULFATE 75 MG TABLET PO SCH (08:40)
[2018-06-27] MEDS: DOCUSATE SODIUM 100 MG CAPSULE. PO PRN (08:41)
[2018-06-27] MEDS: LEVOTHYROXINE 88 MCG TABLET PO SCH (08:43)
[2018-06-27] MEDS: SPIRONOLACTONE 25 MG TABLET PO SCH (08:43)
[2018-06-27] MEDS: LISINOPRIL 5 MG TABLET. PO SCH (08:44)
[2018-06-27] MEDS: POTASSIUM CHLORIDE 20 MEQ TABLET.ER. PO SCH (08:45)
[2018-06-27] MEDS: FUROSEMIDE 40 MG/4 ML VIAL. IV SCH ×2 (08:45→17:28)
[2018-06-27] MEDS: LACTOBACILLUS RHAMNOSUS GG 1 CAPSULE. PO SCH ×2 (08:45→21:07)
[2018-06-27] MEDS: HEPARIN for SUB-Q USE 5,000 UNIT/ML VIAL. SQ SCH ×3 (08:54→21:00)
--- NOTE | 2018-06-27 09:06 | PDOC ---
PROGRESS NOTES Chief Complaint Chief Complaint Triple vessel Disease by [facility] 06/22/18 Severe ischemic CM with EF 30% Acute on chronic CHF AECOPD/pulmonary HTN LE edema more to RLE with small superficial right posterior ulcer. PAD, poor pulses - OP arteriogram Hypothyroidism TSH 5 with T4 at goal on synthroid constipated - bowel regimen Hypokalemia . corrected Morbid obesity with likely GÓMEZ Severe onychmycoses DM2 - A1c 7.9 History of Present Illness History of Present Illness wheezy today History of smoking COPD on diagnosis Chest x-ray 06/24/18 shows worsening congestion On milrinone gtt Planned for impella with high-risk PVI on Thursday by cardiology along with vascular surgery Plan: Steroids today to start Continue duo nebs Impella with high-risk PVI on Thursday by vascular/cardiology Vitals Vitals Vital Signs Date Time Temp Pulse Resp B/P (MAP) Pulse Ox O2 Delivery O2 Flow Rate FiO2 06/27/18 08:44 98 112/69 06/27/18 07:00 97.3 16 97 Nasal Cannula 4.0 97.3 Physical Exam General: Alert, Oriented X3, Cooperative, mild distress Heart: Regular rate, Normal S1, Normal S2 Lungs: Clear, Crackles Abdomen: Normal bowel sounds, Soft Extremities: Other (edema) Skin: Other Labs LABS Laboratory Tests Test 06/26/18 12:02 06/26/18 17:18 06/26/18 20:31 06/27/18 03:25 Glucose (Fingerstick) 151 mg/dL (70-99) 177 mg/dL (70-99) 183 mg/dL (70-99) Platelet Count 188 x10^3/uL (140-400) Sodium Level 123 mmol/L (136-145) Potassium Level 4.0 mmol/L (3.5-5.1) Chloride Level 86 mmol/L (98-107) Carbon Dioxide Level 31 mmol/L (21-32) Anion Gap 6 (6-14) Blood Urea Nitrogen 6 mg/dL (7-20) Creatinine 0.7 mg/dL (0.6-1.0) Estimated GFR (Cockcroft-Gault) 82.3 Glucose Level 128 mg/dL (70-99) Calcium Level 8.8 mg/dL (8.5-10.1) Phosphorus Level 3.2 mg/dL (2.6-4.7) Magnesium Level 1.8 mg/dL (1.8-2.4) Albumin 2.9 g/dL (3.4-5.0) Test 06/27/18 07:20 Glucose (Fingerstick) 152 mg/dL (70-99) Review of Systems Review of Systems S OA and tachypneic today, the rest of ROS 14 point negative Assessment and Plan Assessmemt and Plan Problems Medical Problems: (1) Congestive heart failure Status: Acute Comment Review of Relevant I have reviewed the following items rosangela (where applicable) has been applied. Labs Laboratory Tests Test 06/25/18 10:05 06/25/18 12:13 06/25/18 17:00 06/25/18 21:37 Sodium Level 123 mmol/L (136-145) Potassium Level 3.4 mmol/L (3.5-5.1) Chloride Level 84 mmol/L (98-107) Carbon Dioxide Level 31 mmol/L (21-32) Anion Gap 8 (6-14) Blood Urea Nitrogen 6 mg/dL (7-20) Creatinine 0.8 mg/dL (0.6-1.0) Estimated GFR (Cockcroft-Gault) 70.5 Glucose Level 141 mg/dL (70-99) Calcium Level 8.5 mg/dL (8.5-10.1) Phosphorus Level 3.0 mg/dL (2.6-4.7) Magnesium Level 1.7 mg/dL (1.8-2.4) Albumin 3.0 g/dL (3.4-5.0) Glucose (Fingerstick) 144 mg/dL (70-99) 217 mg/dL (70-99) 155 mg/dL (70-99) Test 06/26/18 04:00 06/26/18 07:40 06/26/18 12:02 06/26/18 17:18 Sodium Level 122 mmol/L (136-145) Potassium Level 3.5 mmol/L (3.5-5.1) Chloride Level 84 mmol/L (98-107) Carbon Dioxide Level 31 mmol/L (21-32) Anion Gap 7 (6-14) Blood Urea Nitrogen 5 mg/dL (7-20) Creatinine 0.7 mg/dL (0.6-1.0) Estimated GFR (Cockcroft-Gault) 82.3 Glucose Level 118 mg/dL (70-99) Calcium Level 8.6 mg/dL (8.5-10.1) Phosphorus Level 3.1 mg/dL (2.6-4.7) Magnesium Level 2.0 mg/dL (1.8-2.4) Albumin 2.8 g/dL (3.4-5.0) Glucose (Fingerstick) 139 mg/dL (70-99) 151 mg/dL (70-99) 177 mg/dL (70-99) Test 06/26/18 20:31 06/27/18 03:25 06/27/18 07:20 Glucose (Fingerstick) 183 mg/dL (70-99) 152 mg/dL (70-99) Platelet Count 188 x10^3/uL (140-400) Sodium Level 123 mmol/L (136-145) Potassium Level 4.0 mmol/L (3.5-5.1) Chloride Level 86 mmol/L (98-107) Carbon Dioxide Level 31 mmol/L (21-32) Anion Gap 6 (6-14) Blood Urea Nitrogen 6 mg/dL (7-20) Creatinine 0.7 mg/dL (0.6-1.0) Estimated GFR (Cockcroft-Gault) 82.3 Glucose Level 128 mg/dL (70-99) Calcium Level 8.8 mg/dL (8.5-10.1) Phosphorus Level 3.2 mg/dL (2.6-4.7) Magnesium Level 1.8 mg/dL (1.8-2.4) Albumin 2.9 g/dL (3.4-5.0) Laboratory Tests Test 06/26/18 12:02 06/26/18 17:18 06/26/18 20:31 06/27/18 03:25 Glucose (Fingerstick) 151 mg/dL (70-99) 177 mg/dL (70-99) 183 mg/dL (70-99) Platelet Count 188 x10^3/uL (140-400) Sodium Level 123 mmol/L (136-145) Potassium Level 4.0 mmol/L (3.5-5.1) Chloride Level 86 mmol/L (98-107) Carbon Dioxide Level 31 mmol/L (21-32) Anion Gap 6 (6-14) Blood Urea Nitrogen 6 mg/dL (7-20) Creatinine 0.7 mg/dL (0.6-1.0) Estimated GFR (Cockcroft-Gault) 82.3 Glucose Level 128 mg/dL (70-99) Calcium Level 8.8 mg/dL (8.5-10.1) Phosphorus Level 3.2 mg/dL (2.6-4.7) Magnesium Level 1.8 mg/dL (1.8-2.4) Albumin 2.9 g/dL (3.4-5.0) Test 06/27/18 07:20 Glucose (Fingerstick) 152 mg/dL (70-99) Medications Current Medications Furosemide (Lasix) 40 mg 1X ONCE IVP Last administered on 06/18/18 14:59; Start 06/18/18 at 14:00; Stop 06/18/18 at 14:47; Status DC Aspirin (Children'S Aspirin) 324 mg 1X ONCE PO Last administered on 06/18/18 14:59; Start 06/18/18 at 14:00; Stop 06/18/18 at 14:47; Status DC Potassium Chloride (KCl Oral Soln) 40 meq 1X ONCE PO Last administered on 14:59; Start 06/18/18 at 15:00; Stop 06/18/18 at 15:01; Status DC Furosemide (Lasix) 40 mg DAILY IVP ; Start 06/19/18 at 09:00; Stop 06/19/18 at 09: 00; Status DC Furosemide (Lasix) 40 mg [id number] IVP ; Start 06/19/18 at 09:00; Stop 06/19/18 at 09: 00; Status DC Lisinopril (Prinivil) 2.5 mg DAILY PO Last administered on 06/27/18 08:44; Start 06/19/18 at 09:00 Furosemide (Lasix) 40 mg BID92 IV Last administered on 06/27/18 08:45; Start 06/18/18 at 16:00 Spironolactone (Aldactone) 25 mg DAILY PO Last administered on 06/27/18 08:43 ; Start 06/19/18 at 09:00 Heparin Sodium (Porcine) (Heparin Sodium) 5,000 unit Q12HR SQ Last administered on 4/13/19at 20:40; Start 06/18/18 at 16:00 Sodium Chloride (Normal Saline Flush) 3 ml QSHIFT PRN IV AFTER MEDS AND BLOOD DRAWS; Start 06/18/18 at 16:00 Ondansetron HCl (Zofran) 4 mg PRN Q4HRS PRN IV NAUSEA/VOMITING; Start 06/18/18 at 16:00 Acetaminophen (Tylenol) 650 mg PRN Q4HRS PRN PO TEMP OVER 100.4F OR MILD PAIN Last administered on 06/23/18 09:28; Start 06/18/18 at 16:00 Sodium Monofluorophosphate (Fleet Adult) 133 ml PRN DAILY PRN MS CONSTIPATION; Start 06/18/18 at 16:00 Diphenhydramine HCl (Benadryl) 25 mg PRN Q4HRS PRN IVP ITCHING Last administered on 06/24/18 20:54; Start 06/18/18 at 16:00 Docusate Sodium (Colace) 100 mg PRN BID PRN PO CONSTIPATION Last administered on 06/27/18 08:41; Start 06/18/18 at 16:00 Albuterol Sulfate (Ventolin Neb Soln) 2.5 mg PRN Q4HRS PRN NEB SHORTNESS OF BREATH; Start 06/18/18 at 16:00 Albuterol/ Ipratropium (Duoneb) 3 ml Q4HRS NEB Last administered on 06/27/18 04:40; Start 06/18/18 at 16:00 Aspirin (Ecotrin) 81 mg DAILY08 PO Last administered on 06/27/18 08:40; Start 06/19/18 at 08:00 Levothyroxine Sodium (Synthroid) 88 mcg DAILY08 PO Last administered on 08:43; Start 06/19/18 at 08:00 Latanoprost (Xalatan) 1 drop QHS OU Last administered on 06/26/18 20:35; Start 06/18/18 at 21:00 Potassium Chloride (KCl Oral Soln) 40 meq 1X ONCE PO Last administered on 13:43; Start 06/19/18 at 13:00; Stop 06/19/18 at 13:01; Status DC Insulin Glargine (Lantus) 5 units QHS SQ Last administered on 06/26/18at 20:43; Start 06/19/18 at 21:00 Insulin Human Lispro (HumaLOG) 0-5 UNITS TIDWMEALS SQ Last administered on 06/25at 17:24; Start 06/19/18 at 12:30 Dextrose (Dextrose 50%-Water Syringe) 12.5 gm PRN Q15MIN PRN IV SEE COMMENTS; Start 06/19/18 at 12:15 Clindamycin Phosphate 50 ml @ 100 mls/hr Q8HRS IV Last administered on at 14:17; Start 06/21/18 at 10:00; Stop 06/24/18 at 15:00; Status DC Lactobacillus Rhamnosus (Culturelle) 1 cap BID PO Last administered on at 08:45; Start 06/21/18 at 21:00 Milrinone Lactate/ Dextrose 100 ml @ 4.022 mls/ hr CONT PRN IV SEE I/O RECORD Last administered on 06/26/18at 21:00; Start 06/22/18 at 13:00 Iodixanol (Visipaque 320) 100 ml STK-MED ONCE .ROUTE ; Start 06/23/18 at 06:35; Stop 06/23/18 at 06:36; Status DC Lidocaine HCl (Lidocaine 1% 20ml Vial) 20 ml STK-MED ONCE .ROUTE ; Start at 06:35; Stop 06/23/18 at 06:36; Status DC Heparin Sodium/ Sodium Chloride 1,500 ml @ As Directed STK-MED ONCE .ROUTE ; Start 06/23/18 at 06:35; Stop 06/23/18 at 06:36; Status DC Iodixanol (Visipaque 320) 100 ml STK-MED ONCE .ROUTE ; Start 06/23/18 at 07:26; Stop 06/23/18 at 07:27; Status DC Midazolam HCl (Versed) 2 mg STK-MED ONCE .ROUTE ; Start 06/23/18 at 07:30; Stop 06/23/18 at 07:31; Status DC Fentanyl Citrate (Fentanyl 2ml Vial) 100 mcg STK-MED ONCE .ROUTE ; Start at 07:30; Stop 06/23/18 at 07:31; Status DC Verapamil HCl (Verapamil) 5 mg STK-MED ONCE .ROUTE ; Start 06/23/18 at 07:30; Stop 06/23/18 at 07:31; Status DC Heparin Sodium (Porcine) (Heparin Sodium) 10,000 unit STK-MED ONCE .ROUTE ; Start 06/23/18 at 07:30; Stop 06/23/18 at 07:31; Status DC Nitroglycerin (Nitroglycerin) 200 mcg STK-MED ONCE .ROUTE ; Start 06/23/18 at 07 :30; Stop 06/23/18 at 07:31; Status DC Nitroglycerin (Nitroglycerin) 200 mcg 1X ONCE IART Last administered on at 08:20; Start 06/23/18 at 08:15; Stop 06/23/18 at 08:18; Status DC Verapamil HCl (Verapamil) 2.5 mg 1X ONCE IART Last administered on 06/23/18 08:22; Start 06/23/18 at 08:15; Stop 06/23/18 at 08:18; Status DC Heparin Sodium (Porcine) (Heparin Sodium) 2,500 unit 1X ONCE IART Last administered on 06/23/18at 08:23; Start 06/23/18 at 08:15; Stop 06/23/18 at 08:18 ; Status DC Heparin Sodium/ Sodium Chloride (HEPARIN for ARTERIAL LINE FLUSH) 1,000 unit 1X ONCE IART Last administered on 06/23/18 08:20; Start 06/23/18 at 08:15; Stop 06/23/18 at 08:18; Status DC Heparin Sodium/ Sodium Chloride (HEPARIN for ARTERIAL LINE FLUSH) 1,000 unit 1X ONCE IART Last administered on 06/23/18 08:20; Start 06/23/18 at 08:15; Stop 06/23/18 at 08:18; Status DC Midazolam HCl (Versed) 1.5 mg 1X ONCE IV Last administered on 06/23/18at 08:21 ; Start 06/23/18 at 08:15; Stop 06/23/18 at 08:18; Status DC Fentanyl Citrate (Fentanyl 2ml Vial) 75 mcg 1X ONCE IV Last administered on 01/01at 08:22; Start 06/23/18 at 08:15; Stop 06/23/18 at 08:18; Status DC Iodixanol (Visipaque 320) 99 ml 1X ONCE IART Last administered on 06/23/18at 08 :20; Start 06/23/18 at 08:15; Stop 06/23/18 at 08:18; Status DC Lidocaine HCl (Lidocaine 1% 20ml Vial) 1 ml 1X ONCE INJ Last administered on at 08:20; Start 06/23/18 at 08:15; Stop 06/23/18 at 08:18; Status DC Info (CONTRAST GIVEN -- Rx MONITORING) 1 each PRN DAILY PRN MC SEE COMMENTS; Start 06/23/18 at 08:30; Stop 06/25/18 at 08:29; Status DC Sodium Chloride 250 ml @ 250 mls/hr 1X ONCE IV Last administered on at 11:07; Start 06/23/18 at 11:15; Stop 06/23/18 at 12:14; Status DC Furosemide (Lasix) 40 mg 1X ONCE IVP Last administered on 06/23/18at 20:46; Start 06/23/18 at 20:15; Stop 06/23/18 at 20:19; Status DC Magnesium Sulfate 50 ml @ 25 mls/hr 1X ONCE IV Last administered on 06/24/18at 14:13; Start 06/24/18 at 12:30; Stop 06/24/18 at 14:29; Status DC Potassium Chloride (Klor-Con) 40 meq 1X ONCE PO Last administered on at 14:14; Start 06/24/18 at 12:30; Stop 06/24/18 at 12:31; Status DC Clindamycin HCl (Cleocin) 300 mg QID PO Last administered on 06/27/18at 08:40; Start 06/24/18 at 21:00 Potassium Chloride (Klor-Con) 40 meq DAILY PO Last administered on 06/27/18at 08 :45; Start 06/25/18 at 11:15 Magnesium Sulfate 50 ml @ 25 mls/hr 1X ONCE IV Last administered on 06/25/18at 12:07; Start 06/25/18 at 11:15; Stop 06/25/18 at 13:14; Status DC Potassium Chloride (Klor-Con) 40 meq 1X ONCE PO Last administered on at 08:50; Start 06/26/18 at 07:45; Stop 06/26/18 at 07:50; Status DC Clopidogrel Bisulfate (Plavix) 300 mg 1X ONCE PO Last administered on at 13:10; Start 06/26/18 at 11:00; Stop 06/26/18 at 11:06; Status DC Clopidogrel Bisulfate (Plavix) 75 mg DAILYWBKFT PO Last administered on at 08:40; Start 06/27/18 at 08:00 Active Scripts Active Clindamycin Hcl 300 Mg Capsule 300 Mg PO QID 7 Days Lasix (Furosemide) 40 Mg Tablet 40 Mg PO BID 14 Days Aldactone (Spironolactone) 25 Mg Tablet 25 Mg PO DAILY MDD 1 Lisinopril 5 Mg Tablet 2.5 Mg PO DAILY MDD 1 Proair Hfa (Albuterol Sulfate) 8.5 Gm Hfa.aer.ad 2.5 Mg NEB PRN Q4HRS PRN MDD 1 Reported Aspir-Low (Aspirin) 81 Mg Tablet.dr 1 Tab PO DAILY Triamterene-Hctz 37.5-25 Mg Cp (Triamterene/Hydrochlorothiazid) 1 Each Capsule 1 Cap PO DAILY Synthroid (Levothyroxine Sodium) 88 Mcg Tablet 1 Tab PO DAILY Latanoprost 2.5 Ml Drops 1 Drop EACHEYE QHS Vitals/I & O Vital Sign - Last 24 Hours 06/26/18 06/26/18 06/26/18 06/26/18 11:00 12:06 15:00 16:51 Temp 97.8 98.0 97.8 98.0 Pulse 99 95 Resp 20 18 B/P (MAP) 95/59 (71) 99/57 (71) Pulse Ox 90 96 96 O2 Delivery Room Air Nasal Cannula Nasal Cannula Nasal Cannula O2 Flow Rate 4.0 4.0 4.0 4.0 06/26/18 06/26/18 06/26/18 06/26/18 19:00 20:45 21:01 22:02 Temp 97.7 98.0 97.7 98.0 Pulse 96 95 Resp 16 18 B/P (MAP) 95/66 (76) 96/53 (67) Pulse Ox 93 95 92 O2 Delivery Nasal Cannula Nasal Cannula Nasal Cannula Nasal Cannula O2 Flow Rate 4.0 4.0 4.0 4.0 06/26/18 06/27/18 06/27/18 06/27/18 23:45 02:44 07:00 08:44 Temp 98.1 97.3 98.1 97.3 Pulse 93 98 98 Resp 22 16 B/P (MAP) 93/61 (72) 112/69 (83) 112/69 Pulse Ox 96 96 97 O2 Delivery Nasal Cannula Nasal Cannula Nasal Cannula O2 Flow Rate 3.0 4.0 4.0 Intake and Output 06/26/18 06/26/18 06/27/18 14:59 22:59 06:59 Intake Total 400 ml 600 ml Output Total 850 ml 225 ml Balance -450 ml 375 ml JULIUS ENGEL MD Jun 27, 2018 09:06
[2018-06-27] MEDS: methylPREDNISolone SOD SUCC PF 40 MG/ML VIAL. IV SCH ×3 (09:56→21:07)
[2018-06-27 11:00] VITALS: BP 134/90
[2018-06-27 15:00] VITALS: BP 118/78
--- NOTE | 2018-06-27 16:53 | PDOC ---
CARDIOLOGY PROGRESS NOTE SUBJECTIVE: No events overnight. Continues to have dyspnea/leg pain. No chest pain. OBJECTIVE: Vital SIgns: Vital Signs Date Time Temp Pulse Resp B/P (MAP) Pulse Ox O2 Delivery O2 Flow Rate FiO2 06/27/18 15:00 98.0 102 16 118/78 (91) 92 Nasal Cannula 4.0 98.0 I & O Negative 1.5 L overnight. Objective: She appears mildly frustrated and wants something done sooner than later. Decreased breath sounds bilaterally Lower ext are softer than previously but continued to have 2+ edema with diminished pulses Distant heart sounds. CURRENT MEDICATIONS: Current Medications Medications (Trade) Dose Ordered Sig/Segundo Start Time Stop Time Status Last Admin Dose Admin Acetaminophen (Tylenol) 650 mg PRN Q4HRS PRN 06/18/18 16:00 06/23/18 09:28 650 MG Albuterol Sulfate (Ventolin Neb Soln) 2.5 mg PRN Q4HRS PRN 06/18/18 16:00 Albuterol/ Ipratropium (Duoneb) 3 ml Q4HRS 06/18/18 16:00 06/27/18 13:58 3 ML Aspirin (Children'S Aspirin) 324 mg 1X ONCE 06/18/18 14:00 06/18/18 14:47 DC 06/18/18 14:59 324 MG Aspirin (Ecotrin) 81 mg DAILY08 06/19/18 08:00 06/27/18 08:40 81 MG Clindamycin Phosphate 50 ml @ 100 mls/hr Q8HRS 06/21/18 10:00 06/24/18 15:00 DC 06/24/18 14:17 100 MLS/HR Clindamycin HCl (Cleocin) 300 mg QID 06/24/18 21:00 06/27/18 12:59 300 MG Clopidogrel Bisulfate (Plavix) 75 mg DAILYWBKFT 06/27/18 08:00 06/27/18 08:40 75 MG Dextrose (Dextrose 50%-Water Syringe) 12.5 gm PRN Q15MIN PRN 06/19/18 12:15 Diphenhydramine HCl (Benadryl) 25 mg PRN Q4HRS PRN 06/18/18 16:00 06/24/18 20:54 25 MG Docusate Sodium (Colace) 100 mg PRN BID PRN 06/18/18 16:00 06/27/18 08:41 100 MG Fentanyl Citrate (Fentanyl 2ml Vial) 75 mcg 1X ONCE 06/23/18 08:15 06/23/18 08:18 DC 06/23/18 08:22 75 MCG Furosemide (Lasix) 40 mg 1X ONCE 06/23/18 20:15 06/23/18 20:19 DC 06/23/18 20:46 40 MG Heparin Sodium (Porcine) (Heparin Sodium) 2,500 unit 1X ONCE 06/23/18 08:15 06/23/18 08:18 DC 06/23/18 08:23 2,500 UNIT Heparin Sodium/ Sodium Chloride (HEPARIN for ARTERIAL LINE FLUSH) 1,000 unit 1X ONCE 06/23/18 08:15 06/23/18 08:18 DC 06/23/18 08:20 1,000 UNIT Info (CONTRAST GIVEN -- Rx MONITORING) 1 each PRN DAILY PRN 06/23/18 08:30 06/25/18 08:29 DC Insulin Glargine (Lantus) 5 units QHS 06/19/18 21:00 06/26/18 20:43 5 UNITS Insulin Human Lispro (HumaLOG) 0-5 UNITS TIDWMEALS 06/19/18 12:30 06/27/18 13:05 2 UNITS Iodixanol (Visipaque 320) 99 ml 1X ONCE 06/23/18 08:15 06/23/18 08:18 DC 06/23/18 08:20 99 ML Lactobacillus Rhamnosus (Culturelle) 1 cap BID 06/21/18 21:00 06/27/18 08:45 1 CAP Latanoprost (Xalatan) 1 drop QHS 06/18/18 21:00 06/26/18 20:35 1 DROP Levothyroxine Sodium (Synthroid) 88 mcg DAILY08 06/19/18 08:00 06/27/18 08:43 88 MCG Lidocaine HCl (Lidocaine 1% 20ml Vial) 1 ml 1X ONCE 06/23/18 08:15 06/23/18 08:18 DC 06/23/18 08:20 1 ML Lisinopril (Prinivil) 2.5 mg DAILY 06/19/18 09:00 06/27/18 08:44 2.5 MG Magnesium Sulfate 50 ml @ 25 mls/hr 1X ONCE 06/25/18 11:15 06/25/18 13:14 DC 06/25/18 12:07 25 MLS/HR Methylprednisolone Sodium Succinate (SOLU-Medrol 40MG VIAL) 40 mg Q8HRS 06/27/18 09:15 06/27/18 14:24 40 MG Midazolam HCl (Versed) 1.5 mg 1X ONCE 06/23/18 08:15 06/23/18 08:18 DC 06/23/18 08:21 1.5 MG Milrinone Lactate/ Dextrose 100 ml @ 4.022 mls/ hr CONT PRN 06/22/18 13:00 06/26/18 21:00 4.022 MLS/HR Nitroglycerin (Nitroglycerin) 200 mcg 1X ONCE 06/23/18 08:15 06/23/18 08:18 DC 06/23/18 08:20 200 MCG Ondansetron HCl (Zofran) 4 mg PRN Q4HRS PRN 06/18/18 16:00 Potassium Chloride (KCl Oral Soln) 40 meq 1X ONCE 06/19/18 13:00 06/19/18 13:01 DC 06/19/18 13:43 40 MEQ Potassium Chloride (Klor-Con) 40 meq 1X ONCE 06/26/18 07:45 06/26/18 07:50 DC 06/26/18 08:50 40 MEQ Sodium Monofluorophosphate (Fleet Adult) 133 ml PRN DAILY PRN 06/18/18 16:00 Sodium Chloride 250 ml @ 250 mls/hr 1X ONCE 06/23/18 11:15 06/23/18 12:14 DC 06/23/18 11:07 250 MLS/HR Sodium Chloride (Normal Saline Flush) 3 ml QSHIFT PRN 06/18/18 16:00 Spironolactone (Aldactone) 25 mg DAILY 06/19/18 09:00 06/27/18 08:43 25 MG Verapamil HCl (Verapamil) 2.5 mg 1X ONCE 06/23/18 08:15 06/23/18 08:18 DC 06/23/18 08:22 2.5 MG DIAGNOSTIC TESTING: Labs reviewed. Sodium stable. ASSESSMENT: 1. 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 Severe peripheral arterial disease with critical aortoiliac disease 3. Severe COPD PLAN: 1. I had a family meeting with the patient and her son regarding the planned procedures. I went through the procedure specifically aortoiliac intervention via endovascular approach and Impella guided left main PCI. We discussed risks such as bleeding, renal failure, myocardial infarction, stroke and . We discussed the benefits of the procedure as well. The patient and the family would like to speak with social work to set up a living will. The patient and the family understand the risks and agree to proceed and tentatively will plan for Thursday in conjunction with vascular surgery/ anesthesia. ALYSSIA PASCUAL MD Jun 27, 2018 16:53
[2018-06-27] MEDS: MILRINONE 20MG/100ML PREMIX 100 ML IV PRN (17:17)
[2018-06-27 18:17] LABS: BASO % 0 % (0-3); EOS % 0 % (0-3); HEMOGLOBIN 12.5 g/dL (12.0-15.5); LYMPH # 0.2 x10^3/uL (1.0-4.8); LYMPH % 4 % (24-48); MEAN CORPUSCULAR HEMOGLOBIN 29 pg (25-35); MEAN CORPUSCULAR HGB CONC 33 g/dL (31-37); MEAN CORPUSCULAR VOLUME 87 fL (79-100); MONO # 0.1 x10^3/uL (0.0-1.1); MONO % 1 % (0-9); NEUT # 5.1 x10^3uL (1.8-7.7); NEUT % 94 % (31-73); PLATELET COUNT 199 x10^3/uL (140-400); RED BLOOD COUNT 4.35 x10^6/uL (3.50-5.40); RED CELL DISTRIBUTION WIDTH 17.9 % (11.5-14.5); WHITE BLOOD COUNT 5.5 x10^3/uL (4.0-11.0)
[2018-06-27 18:26] LABS: PROTHROMBIN TIME PATIENT 13.6 SEC (11.7-14.0)
[2018-06-27 18:40] LABS: ALBUMIN 3.4 g/dL (3.4-5.0); CALCIUM 8.9 mg/dL (8.5-10.1); CREATININE 0.9 mg/dL (0.6-1.0); GFR 61.5; POTASSIUM 4.3 mmol/L (3.5-5.1); TOTAL BILIRUBIN 2.2 mg/dL (0.2-1.0); TOTAL PROTEIN 6.8 g/dL (6.4-8.2)
[2018-06-27 18:49] VITALS: BP 113/76
[2018-06-27 18:54] LABS: % ATYL 2 % (0-0); % BANDS 12 % (0-9); % LYMPHS 4 % (24-48); % MONOS 1 % (0-10); % SEGS 81 % (35-66); ANISOCYTOSIS SLIGHT; PLT ESTIMATE ADEQUATE (ADEQUATE)
[2018-06-27] MEDS: LATANOPROST 0.005% OPHTH SOLUTION 2.5ML BOTTLE. OU SCH (21:07)
[2018-06-27] MEDS: INSULIN GLARGINE 300 UNITS/3 ML INSULN.PEN. SQ SCH (21:08)
[2018-06-27 22:25] VITALS: BP 126/86
[2018-06-27] MEDS: diphenhydrAMINE 50 MG/ML VIAL IVP PRN (22:42)
[2018-06-27] MEDS: ACETAMINOPHEN 325 MG TABLET. PO PRN (22:43)
[2018-06-28] MEDS: IPRATRPIUM/ALBUTEROL 0.5/2.5MG 3 ML NEBU. NEB SCH ×5 (03:31→19:41)
[2018-06-28] MEDS: methylPREDNISolone SOD SUCC PF 40 MG/ML VIAL. IV SCH ×3 (05:20→20:56)
[2018-06-28 07:00] VITALS: BP 132/88
[2018-06-28] MEDS: HEPARIN for SUB-Q USE 5,000 UNIT/ML VIAL. SQ SCH ×2 (09:00→20:57)
[2018-06-28] MEDS: ASPIRIN ENTERIC COATED 81 MG TABLET.DR. PO SCH (10:14)
[2018-06-28] MEDS: CLINDAMYCIN HCL 150 MG CAPSULE. PO SCH ×4 (10:14→20:56)
[2018-06-28] MEDS: FUROSEMIDE 40 MG/4 ML VIAL. IV SCH ×2 (10:14→17:35)
[2018-06-28] MEDS: LEVOTHYROXINE 88 MCG TABLET PO SCH (10:14)
[2018-06-28] MEDS: POTASSIUM CHLORIDE 20 MEQ TABLET.ER. PO SCH (10:16)
[2018-06-28] MEDS: LACTOBACILLUS RHAMNOSUS GG 1 CAPSULE. PO SCH ×2 (10:17→20:56)
[2018-06-28] MEDS: INSULIN LISPRO 300 UNITS/3 ML INSULN.PEN. SQ SCH ×3 (10:19→17:37)
[2018-06-28 10:23] VITALS: BP 96/62
--- NOTE | 2018-06-28 10:54 | PDOC ---
PROGRESS NOTES Chief Complaint Chief Complaint Triple vessel Disease by [facility] 06/22/18 Severe ischemic CM with EF 30% Acute on chronic CHF AECOPD/pulmonary HTN LE edema more to RLE with small superficial right posterior ulcer. PAD, poor pulses - OP arteriogram Hypothyroidism TSH 5 with T4 at goal on synthroid constipated - bowel regimen Hypokalemia . corrected Morbid obesity with likely GÓMEZ Severe onychmycoses DM2 - A1c 7.9 History of Present Illness History of Present Illness wheezing better History of smoking COPD on diagnosis Chest x-ray 06/24/18 shows worsening congestion On milrinone gtt Planned for impella with high-risk PVI on Thursday by cardiology along with vascular surgery continue steroids, nebs Vitals Vitals Vital Signs Date Time Temp Pulse Resp B/P (MAP) Pulse Ox O2 Delivery O2 Flow Rate FiO2 06/28/18 10:23 96/62 (73) 06/28/18 08:02 96 Nasal Cannula 4.0 06/28/18 07:00 97.3 102 20 97.3 Physical Exam General: Alert, Oriented X3, Cooperative, mild distress Heart: Regular rate, Normal S1, Normal S2 Lungs: Clear, Crackles Abdomen: Normal bowel sounds, Soft Extremities: Other (edema) Skin: Other Labs LABS Laboratory Tests Test 06/27/18 11:51 06/27/18 17:14 06/27/18 18:05 06/27/18 20:36 Glucose (Fingerstick) 170 mg/dL (70-99) 220 mg/dL (70-99) 181 mg/dL (70-99) White Blood Count 5.5 x10^3/uL (4.0-11.0) Red Blood Count 4.35 x10^6/uL (3.50-5.40) Hemoglobin 12.5 g/dL (12.0-15.5) Hematocrit 38.0 % (36.0-47.0) Mean Corpuscular Volume 87 fL (79-100) Mean Corpuscular Hemoglobin 29 pg (25-35) Mean Corpuscular Hemoglobin Concent 33 g/dL (31-37) Red Cell Distribution Width 17.9 % (11.5-14.5) Platelet Count 199 x10^3/uL (140-400) Neutrophils (%) (Auto) 94 % (31-73) Lymphocytes (%) (Auto) 4 % (24-48) Monocytes (%) (Auto) 1 % (0-9) Eosinophils (%) (Auto) 0 % (0-3) Basophils (%) (Auto) 0 % (0-3) Neutrophils # (Auto) 5.1 x10^3uL (1.8-7.7) Lymphocytes # (Auto) 0.2 x10^3/uL (1.0-4.8) Monocytes # (Auto) 0.1 x10^3/uL (0.0-1.1) Eosinophils # (Auto) 0.0 x10^3/uL (0.0-0.7) Basophils # (Auto) 0.0 x10^3/uL (0.0-0.2) Segmented Neutrophils % 81 % (35-66) Band Neutrophils % 12 % (0-9) Lymphocytes % 4 % (24-48) Atypical Lymphocytes % (Manual) 2 % (0-0) Monocytes % 1 % (0-10) Platelet Estimate Adequate (ADEQUATE) Large Platelets Occ Anisocytosis Slight Prothrombin Time 13.6 SEC (11.7-14.0) Prothromb Time International Ratio 1.1 (0.8-1.1) Heparin Anti-Xa Act, Unfractionated < 0.10 IU/mL (0.30-0.70) Sodium Level 126 mmol/L (136-145) Potassium Level 4.3 mmol/L (3.5-5.1) Chloride Level 86 mmol/L (98-107) Carbon Dioxide Level 28 mmol/L (21-32) Anion Gap 12 (6-14) Blood Urea Nitrogen 8 mg/dL (7-20) Creatinine 0.9 mg/dL (0.6-1.0) Estimated GFR (Cockcroft-Gault) 61.5 BUN/Creatinine Ratio 9 (6-20) Glucose Level 199 mg/dL (70-99) Calcium Level 8.9 mg/dL (8.5-10.1) Total Bilirubin 2.2 mg/dL (0.2-1.0) Aspartate Amino Transf (AST/SGOT) 16 U/L (15-37) Alanine Aminotransferase (ALT/SGPT) 19 U/L (14-59) Alkaline Phosphatase 202 U/L (46-116) Total Protein 6.8 g/dL (6.4-8.2) Albumin 3.4 g/dL (3.4-5.0) Albumin/Globulin Ratio 1.0 (1.0-1.7) Test 06/28/18 07:17 Glucose (Fingerstick) 175 mg/dL (70-99) Assessment and Plan Assessmemt and Plan Problems Medical Problems: (1) Congestive heart failure Status: Acute Comment Review of Relevant I have reviewed the following items rosangela (where applicable) has been applied. Labs Laboratory Tests Test 06/26/18 12:02 06/26/18 17:18 06/26/18 20:31 06/27/18 03:25 Glucose (Fingerstick) 151 mg/dL (70-99) 177 mg/dL (70-99) 183 mg/dL (70-99) Platelet Count 188 x10^3/uL (140-400) Sodium Level 123 mmol/L (136-145) Potassium Level 4.0 mmol/L (3.5-5.1) Chloride Level 86 mmol/L (98-107) Carbon Dioxide Level 31 mmol/L (21-32) Anion Gap 6 (6-14) Blood Urea Nitrogen 6 mg/dL (7-20) Creatinine 0.7 mg/dL (0.6-1.0) Estimated GFR (Cockcroft-Gault) 82.3 Glucose Level 128 mg/dL (70-99) Calcium Level 8.8 mg/dL (8.5-10.1) Phosphorus Level 3.2 mg/dL (2.6-4.7) Magnesium Level 1.8 mg/dL (1.8-2.4) Albumin 2.9 g/dL (3.4-5.0) Test 06/27/18 07:20 06/27/18 11:51 06/27/18 17:14 06/27/18 18:05 Glucose (Fingerstick) 152 mg/dL (70-99) 170 mg/dL (70-99) 220 mg/dL (70-99) White Blood Count 5.5 x10^3/uL (4.0-11.0) Red Blood Count 4.35 x10^6/uL (3.50-5.40) Hemoglobin 12.5 g/dL (12.0-15.5) Hematocrit 38.0 % (36.0-47.0) Mean Corpuscular Volume 87 fL (79-100) Mean Corpuscular Hemoglobin 29 pg (25-35) Mean Corpuscular Hemoglobin Concent 33 g/dL (31-37) Red Cell Distribution Width 17.9 % (11.5-14.5) Platelet Count 199 x10^3/uL (140-400) Neutrophils (%) (Auto) 94 % (31-73) Lymphocytes (%) (Auto) 4 % (24-48) Monocytes (%) (Auto) 1 % (0-9) Eosinophils (%) (Auto) 0 % (0-3) Basophils (%) (Auto) 0 % (0-3) Neutrophils # (Auto) 5.1 x10^3uL (1.8-7.7) Lymphocytes # (Auto) 0.2 x10^3/uL (1.0-4.8) Monocytes # (Auto) 0.1 x10^3/uL (0.0-1.1) Eosinophils # (Auto) 0.0 x10^3/uL (0.0-0.7) Basophils # (Auto) 0.0 x10^3/uL (0.0-0.2) Segmented Neutrophils % 81 % (35-66) Band Neutrophils % 12 % (0-9) Lymphocytes % 4 % (24-48) Atypical Lymphocytes % (Manual) 2 % (0-0) Monocytes % 1 % (0-10) Platelet Estimate Adequate (ADEQUATE) Large Platelets Occ Anisocytosis Slight Prothrombin Time 13.6 SEC (11.7-14.0) Prothromb Time International Ratio 1.1 (0.8-1.1) Heparin Anti-Xa Act, Unfractionated < 0.10 IU/mL (0.30-0.70) Sodium Level 126 mmol/L (136-145) Potassium Level 4.3 mmol/L (3.5-5.1) Chloride Level 86 mmol/L (98-107) Carbon Dioxide Level 28 mmol/L (21-32) Anion Gap 12 (6-14) Blood Urea Nitrogen 8 mg/dL (7-20) Creatinine 0.9 mg/dL (0.6-1.0) Estimated GFR (Cockcroft-Gault) 61.5 BUN/Creatinine Ratio 9 (6-20) Glucose Level 199 mg/dL (70-99) Calcium Level 8.9 mg/dL (8.5-10.1) Total Bilirubin 2.2 mg/dL (0.2-1.0) Aspartate Amino Transf (AST/SGOT) 16 U/L (15-37) Alanine Aminotransferase (ALT/SGPT) 19 U/L (14-59) Alkaline Phosphatase 202 U/L (46-116) Total Protein 6.8 g/dL (6.4-8.2) Albumin 3.4 g/dL (3.4-5.0) Albumin/Globulin Ratio 1.0 (1.0-1.7) Test 06/27/18 20:36 06/28/18 07:17 Glucose (Fingerstick) 181 mg/dL (70-99) 175 mg/dL (70-99) Laboratory Tests Test 06/27/18 11:51 06/27/18 17:14 06/27/18 18:05 06/27/18 20:36 Glucose (Fingerstick) 170 mg/dL (70-99) 220 mg/dL (70-99) 181 mg/dL (70-99) White Blood Count 5.5 x10^3/uL (4.0-11.0) Red Blood Count 4.35 x10^6/uL (3.50-5.40) Hemoglobin 12.5 g/dL (12.0-15.5) Hematocrit 38.0 % (36.0-47.0) Mean Corpuscular Volume 87 fL (79-100) Mean Corpuscular Hemoglobin 29 pg (25-35) Mean Corpuscular Hemoglobin Concent 33 g/dL (31-37) Red Cell Distribution Width 17.9 % (11.5-14.5) Platelet Count 199 x10^3/uL (140-400) Neutrophils (%) (Auto) 94 % (31-73) Lymphocytes (%) (Auto) 4 % (24-48) Monocytes (%) (Auto) 1 % (0-9) Eosinophils (%) (Auto) 0 % (0-3) Basophils (%) (Auto) 0 % (0-3) Neutrophils # (Auto) 5.1 x10^3uL (1.8-7.7) Lymphocytes # (Auto) 0.2 x10^3/uL (1.0-4.8) Monocytes # (Auto) 0.1 x10^3/uL (0.0-1.1) Eosinophils # (Auto) 0.0 x10^3/uL (0.0-0.7) Basophils # (Auto) 0.0 x10^3/uL (0.0-0.2) Segmented Neutrophils % 81 % (35-66) Band Neutrophils % 12 % (0-9) Lymphocytes % 4 % (24-48) Atypical Lymphocytes % (Manual) 2 % (0-0) Monocytes % 1 % (0-10) Platelet Estimate Adequate (ADEQUATE) Large Platelets Occ Anisocytosis Slight Prothrombin Time 13.6 SEC (11.7-14.0) Prothromb Time International Ratio 1.1 (0.8-1.1) Heparin Anti-Xa Act, Unfractionated < 0.10 IU/mL (0.30-0.70) Sodium Level 126 mmol/L (136-145) Potassium Level 4.3 mmol/L (3.5-5.1) Chloride Level 86 mmol/L (98-107) Carbon Dioxide Level 28 mmol/L (21-32) Anion Gap 12 (6-14) Blood Urea Nitrogen 8 mg/dL (7-20) Creatinine 0.9 mg/dL (0.6-1.0) Estimated GFR (Cockcroft-Gault) 61.5 BUN/Creatinine Ratio 9 (6-20) Glucose Level 199 mg/dL (70-99) Calcium Level 8.9 mg/dL (8.5-10.1) Total Bilirubin 2.2 mg/dL (0.2-1.0) Aspartate Amino Transf (AST/SGOT) 16 U/L (15-37) Alanine Aminotransferase (ALT/SGPT) 19 U/L (14-59) Alkaline Phosphatase 202 U/L (46-116) Total Protein 6.8 g/dL (6.4-8.2) Albumin 3.4 g/dL (3.4-5.0) Albumin/Globulin Ratio 1.0 (1.0-1.7) Test 06/28/18 07:17 Glucose (Fingerstick) 175 mg/dL (70-99) Medications Current Medications Furosemide (Lasix) 40 mg 1X ONCE IVP Last administered on 06/18/18at 14:59; Start 06/18/18 at 14:00; Stop 06/18/18 at 14:47; Status DC Aspirin (Children'S Aspirin) 324 mg 1X ONCE PO Last administered on 06/18/18at 14:59; Start 06/18/18 at 14:00; Stop 06/18/18 at 14:47; Status DC Potassium Chloride (KCl Oral Soln) 40 meq 1X ONCE PO Last administered on at 14:59; Start 06/18/18 at 15:00; Stop 06/18/18 at 15:01; Status DC Furosemide (Lasix) 40 mg DAILY IVP ; Start 06/19/18 at 09:00; Stop 06/19/18 at 09: 00; Status DC Furosemide (Lasix) 40 mg [id number] IVP ; Start 06/19/18 at 09:00; Stop 06/19/18 at 09: 00; Status DC Lisinopril (Prinivil) 2.5 mg DAILY PO Last administered on 06/27/18at 08:44; Start 06/19/18 at 09:00 Furosemide (Lasix) 40 mg [id number] IV Last administered on 06/28/18at 10:14; Start 06/18/18 at 16:00 Spironolactone (Aldactone) 25 mg DAILY PO Last administered on 06/27/18 08:43 ; Start 06/19/18 at 09:00 Heparin Sodium (Porcine) (Heparin Sodium) 5,000 unit Q12HR SQ Last administered on 06/26/18at 20:40; Start 06/18/18 at 16:00 Sodium Chloride (Normal Saline Flush) 3 ml QSHIFT PRN IV AFTER MEDS AND BLOOD DRAWS; Start 06/18/18 at 16:00 Ondansetron HCl (Zofran) 4 mg PRN Q4HRS PRN IV NAUSEA/VOMITING; Start 06/18/18 at 16:00 Acetaminophen (Tylenol) 650 mg PRN Q4HRS PRN PO TEMP OVER 100.4F OR MILD PAIN Last administered on 06/27/18at 22:43; Start 06/18/18 at 16:00 Sodium Monofluorophosphate (Fleet Adult) 133 ml PRN DAILY PRN [place] CONSTIPATION; Start 06/18/18 at 16:00 Diphenhydramine HCl (Benadryl) 25 mg PRN Q4HRS PRN IVP ITCHING Last administered on 06/27/18 22:42; Start 06/18/18 at 16:00 Docusate Sodium (Colace) 100 mg PRN BID PRN PO CONSTIPATION Last administered on 06/27/18 08:41; Start 06/18/18 at 16:00 Albuterol Sulfate (Ventolin Neb Soln) 2.5 mg PRN Q4HRS PRN NEB SHORTNESS OF BREATH; Start 06/18/18 at 16:00 Albuterol/ Ipratropium (Duoneb) 3 ml Q4HRS NEB Last administered on 06/28/18 08:02; Start 06/18/18 at 16:00 Aspirin (Ecotrin) 81 mg DAILY08 PO Last administered on 06/28/18 10:14; Start 06/19/18 at 08:00 Levothyroxine Sodium (Synthroid) 88 mcg DAILY08 PO Last administered on 10:14; Start 06/19/18 at 08:00 Latanoprost (Xalatan) 1 drop QHS OU Last administered on 06/27/18 21:07; Start 06/18/18 at 21:00 Potassium Chloride (KCl Oral Soln) 40 meq 1X ONCE PO Last administered on 13:43; Start 06/19/18 at 13:00; Stop 06/19/18 at 13:01; Status DC Insulin Glargine (Lantus) 5 units QHS SQ Last administered on 06/27/18 21:08; Start 06/19/18 at 21:00 Insulin Human Lispro (HumaLOG) 0-5 UNITS TIDWMEALS SQ Last administered on 06/28 10:19; Start 06/19/18 at 12:30 Dextrose (Dextrose 50%-Water Syringe) 12.5 gm PRN Q15MIN PRN IV SEE COMMENTS; Start 06/19/18 at 12:15 Clindamycin Phosphate 50 ml @ 100 mls/hr Q8HRS IV Last administered on 14:17; Start 06/21/18 at 10:00; Stop 06/24/18 at 15:00; Status DC Lactobacillus Rhamnosus (Culturelle) 1 cap BID PO Last administered on 10:17; Start 06/21/18 at 21:00 Milrinone Lactate/ Dextrose 100 ml @ 4.022 mls/ hr CONT PRN IV SEE I/O RECORD Last administered on 06/27/18at 17:17; Start 06/22/18 at 13:00 Iodixanol (Visipaque 320) 100 ml STK-MED ONCE .ROUTE ; Start 06/23/18 at 06:35; Stop 06/23/18 at 06:36; Status DC Lidocaine HCl (Lidocaine 1% 20ml Vial) 20 ml STK-MED ONCE .ROUTE ; Start at 06:35; Stop 06/23/18 at 06:36; Status DC Heparin Sodium/ Sodium Chloride 1,500 ml @ As Directed STK-MED ONCE .ROUTE ; Start 06/23/18 at 06:35; Stop 06/23/18 at 06:36; Status DC Iodixanol (Visipaque 320) 100 ml STK-MED ONCE .ROUTE ; Start 06/23/18 at 07:26; Stop 06/23/18 at 07:27; Status DC Midazolam HCl (Versed) 2 mg STK-MED ONCE .ROUTE ; Start 06/23/18 at 07:30; Stop 06/23/18 at 07:31; Status DC Fentanyl Citrate (Fentanyl 2ml Vial) 100 mcg STK-MED ONCE .ROUTE ; Start at 07:30; Stop 06/23/18 at 07:31; Status DC Verapamil HCl (Verapamil) 5 mg STK-MED ONCE .ROUTE ; Start 06/23/18 at 07:30; Stop 06/23/18 at 07:31; Status DC Heparin Sodium (Porcine) (Heparin Sodium) 10,000 unit STK-MED ONCE .ROUTE ; Start 06/23/18 at 07:30; Stop 06/23/18 at 07:31; Status DC Nitroglycerin (Nitroglycerin) 200 mcg STK-MED ONCE .ROUTE ; Start 06/23/18 at 07 :30; Stop 06/23/18 at 07:31; Status DC Nitroglycerin (Nitroglycerin) 200 mcg 1X ONCE IART Last administered on at 08:20; Start 06/23/18 at 08:15; Stop 06/23/18 at 08:18; Status DC Verapamil HCl (Verapamil) 2.5 mg 1X ONCE IART Last administered on 06/23/18 08:22; Start 06/23/18 at 08:15; Stop 06/23/18 at 08:18; Status DC Heparin Sodium (Porcine) (Heparin Sodium) 2,500 unit 1X ONCE IART Last administered on 06/23/18 08:23; Start 06/23/18 at 08:15; Stop 06/23/18 at 08:18 ; Status DC Heparin Sodium/ Sodium Chloride (HEPARIN for ARTERIAL LINE FLUSH) 1,000 unit 1X ONCE IART Last administered on 06/23/18 08:20; Start 06/23/18 at 08:15; Stop 06/23/18 at 08:18; Status DC Heparin Sodium/ Sodium Chloride (HEPARIN for ARTERIAL LINE FLUSH) 1,000 unit 1X ONCE IART Last administered on 06/23/18 08:20; Start 06/23/18 at 08:15; Stop 06/23/18 at 08:18; Status DC Midazolam HCl (Versed) 1.5 mg 1X ONCE IV Last administered on 06/23/18 08:21 ; Start 06/23/18 at 08:15; Stop 06/23/18 at 08:18; Status DC Fentanyl Citrate (Fentanyl 2ml Vial) 75 mcg 1X ONCE IV Last administered on 08:22; Start 06/23/18 at 08:15; Stop 06/23/18 at 08:18; Status DC Iodixanol (Visipaque 320) 99 ml 1X ONCE IART Last administered on 06/23/18 08 :20; Start 06/23/18 at 08:15; Stop 06/23/18 at 08:18; Status DC Lidocaine HCl (Lidocaine 1% 20ml Vial) 1 ml 1X ONCE INJ Last administered on 08:20; Start 06/23/18 at 08:15; Stop 06/23/18 at 08:18; Status DC Info (CONTRAST GIVEN -- Rx MONITORING) 1 each PRN DAILY PRN MC SEE COMMENTS; Start 06/23/18 at 08:30; Stop 06/25/18 at 08:29; Status DC Sodium Chloride 250 ml @ 250 mls/hr 1X ONCE IV Last administered on at 11:07; Start 06/23/18 at 11:15; Stop 06/23/18 at 12:14; Status DC Furosemide (Lasix) 40 mg 1X ONCE IVP Last administered on 06/23/18at 20:46; Start 06/23/18 at 20:15; Stop 06/23/18 at 20:19; Status DC Magnesium Sulfate 50 ml @ 25 mls/hr 1X ONCE IV Last administered on 06/24/18at 14:13; Start 06/24/18 at 12:30; Stop 06/24/18 at 14:29; Status DC Potassium Chloride (Klor-Con) 40 meq 1X ONCE PO Last administered on at 14:14; Start 06/24/18 at 12:30; Stop 06/24/18 at 12:31; Status DC Clindamycin HCl (Cleocin) 300 mg QID PO Last administered on 06/28/18at 10:14; Start 06/24/18 at 21:00 Potassium Chloride (Klor-Con) 40 meq DAILY PO Last administered on 06/28/18at 10 :16; Start 06/25/18 at 11:15 Magnesium Sulfate 50 ml @ 25 mls/hr 1X ONCE IV Last administered on 06/25/18at 12:07; Start 06/25/18 at 11:15; Stop 06/25/18 at 13:14; Status DC Potassium Chloride (Klor-Con) 40 meq 1X ONCE PO Last administered on at 08:50; Start 06/26/18 at 07:45; Stop 06/26/18 at 07:50; Status DC Clopidogrel Bisulfate (Plavix) 300 mg 1X ONCE PO Last administered on at 13:10; Start 06/26/18 at 11:00; Stop 06/26/18 at 11:06; Status DC Clopidogrel Bisulfate (Plavix) 75 mg DAILYWBKFT PO Last administered on at 08:40; Start 06/27/18 at 08:00 Methylprednisolone Sodium Succinate (SOLU-Medrol 40MG VIAL) 40 mg Q8HRS IV Last administered on 06/28/18at 05:20; Start 06/27/18 at 09:15 Active Scripts Active Clindamycin Hcl 300 Mg Capsule 300 Mg PO QID 7 Days Lasix (Furosemide) 40 Mg Tablet 40 Mg PO BID 14 Days Aldactone (Spironolactone) 25 Mg Tablet 25 Mg PO DAILY MDD 1 Lisinopril 5 Mg Tablet 2.5 Mg PO DAILY MDD 1 Proair Hfa (Albuterol Sulfate) 8.5 Gm Hfa.aer.ad 2.5 Mg NEB PRN Q4HRS PRN MDD 1 Reported Aspir-Low (Aspirin) 81 Mg Tablet.dr 1 Tab PO DAILY Triamterene-Hctz 37.5-25 Mg Cp (Triamterene/Hydrochlorothiazid) 1 Each Capsule 1 Cap PO DAILY Synthroid (Levothyroxine Sodium) 88 Mcg Tablet 1 Tab PO DAILY Latanoprost 2.5 Ml Drops 1 Drop [facility] [place] Vitals/I & O Vital Sign - Last 24 Hours 06/27/18 06/27/18 06/27/18 06/27/18 11:00 13:59 15:00 17:09 Temp 97.9 98.0 97.9 98.0 Pulse 111 102 Resp 16 16 B/P (MAP) 134/90 (105) 118/78 (91) Pulse Ox 94 95 92 96 O2 Delivery Nasal Cannula Nasal Cannula Nasal Cannula Nasal Cannula O2 Flow Rate 4.0 5.0 4.0 5.0 06/27/18 06/27/18 06/27/18 06/27/18 18:49 19:50 19:56 22:25 Temp 97.4 97.6 97.4 97.6 Pulse 113 110 Resp 22 22 B/P (MAP) 113/76 (88) 126/86 (99) Pulse Ox 95 96 95 O2 Delivery Nasal Cannula Nasal Cannula Nasal Cannula Nasal Cannula O2 Flow Rate 5.0 5.0 4.0 5.0 06/27/18 06/28/18 06/28/18 06/28/18 22:45 07:00 08:02 10:23 Temp 97.3 97.3 Pulse 102 Resp 20 B/P (MAP) 132/88 (103) 96/62 (73) Pulse Ox 96 96 96 O2 Delivery Nasal Cannula Nasal Cannula Nasal Cannula O2 Flow Rate 5.0 5.0 4.0 Intake and Output 06/27/18 06/27/18 06/28/18 15:00 23:00 07:00 Intake Total 1048 ml 148 ml Output Total 800 ml 350 ml Balance 248 ml -202 ml ROZ HOPKINS MD Jun 28, 2018 10:54
[2018-06-28] MEDS: CLOPIDOGREL BISULFATE 75 MG TABLET PO SCH (11:58)
[2018-06-28] MEDS: LISINOPRIL 5 MG TABLET. PO SCH (11:59)
[2018-06-28] MEDS: SPIRONOLACTONE 25 MG TABLET PO SCH (11:59)
--- NOTE | 2018-06-28 12:11 | PDOC ---
CARDIOLOGY PROGRESS NOTE SUBJECTIVE: Pt continues having SOB and edema. She endorses it has gotten better since admission. Her O2 sat is in 90s on 3L O2. She is aware that she will have the cardiovascular interventions tomorrow. Denies chest pain, palpitation, F/C, N/V and acute changes overnight. OBJECTIVE: Vital SIgns: Vital Signs Date Time Temp Pulse Resp B/P (MAP) Pulse Ox O2 Delivery O2 Flow Rate FiO2 06/28/18 11:19 90 Nasal Cannula 3.0 06/28/18 10:23 96/62 (73) 06/28/18 07:00 97.3 102 20 97.3 I & O Intake and Output 06/28/18 06:59 Intake Total 1196 ml Output Total 1150 ml Balance 46 ml Intake Oral 1100 ml IV Total 96 ml Output Urine Total 1150 ml Objective: Physical exam: General: A x O x 3, appeared as stated age Heart: tachycardic but regular rhythm, distant heart sound Lung: diminished lung sounds, diffuse expiratory wheezes LE: +2 pitting edema b/l. CURRENT MEDICATIONS: Lasix Milrinone Plavix Spironolactone ASA Lisinopril DIAGNOSTIC TESTING: Labs reviewed. Sodium is 126 (has been stable in the 120s since admission). Cl- = 86 (in the 80s since admission) ASSESSMENT: 1. Ischemic cardiomyopathy with severe Left main dz 2. Severe PAD with 80% diffuse infrarenal stenosis, 95% stenosis at aortic bifurcation. 3. Severe COPD PLAN: Continue current cardiovascular and pulmonary management. Planned for PCI of LAD , aortoiliac interventions and infrarenal aorta DBX angioplasty/stent on Thu We will reverse her DNR/DNI status for the procedure and 48 hours after, discussed with patient and family, they are agreeable. Thanks ALYSSIA PASCUAL MD Jun 28, 2018 12:11
--- NOTE | 2018-06-28 14:48 | NUR ---
SS following up with discharge planning. SS received referral for DPOA. SS completed DPOA paperwork with pt. SS and Dr. Solano discussed long-term unit with pt and pt now agreeable to long-term unit at [facility]. SS phoned and faxed referral to [facility], ; fax [phone]. Pt having procedure tomorrow. SS will continue to follow for discharge planning.
[2018-06-28 15:22] VITALS: BP 112/67
[2018-06-28 19:55] VITALS: BP 107/65
[2018-06-28] MEDS: MILRINONE 20MG/100ML PREMIX 100 ML IV PRN (20:55)
[2018-06-28] MEDS: ACETAMINOPHEN 325 MG TABLET. PO PRN (20:56)
[2018-06-28] MEDS: diphenhydrAMINE 50 MG/ML VIAL IVP PRN (20:56)
[2018-06-28] MEDS: LATANOPROST 0.005% OPHTH SOLUTION 2.5ML BOTTLE. OU SCH (20:56)
[2018-06-28] MEDS: INSULIN GLARGINE 300 UNITS/3 ML INSULN.PEN. SQ SCH (20:57)
[2018-06-28] MEDS: ATORVASTATIN CALCIUM 40 MG TABLET. PO SCH (21:01)
[2018-06-28 23:00] VITALS: BP 101/57
[2018-06-29] VITALS (12 sets, daily range): BP systolic 82–146; BP diastolic 48–88
[2018-06-29] MEDS: IPRATRPIUM/ALBUTEROL 0.5/2.5MG 3 ML NEBU. NEB SCH ×7 (03:58→23:00)
[2018-06-29 05:03] LABS: BASO % 0 % (0-3); EOS % 0 % (0-3); HEMATOCRIT 38.6 % (36.0-47.0); HEMOGLOBIN 12.7 g/dL (12.0-15.5); LYMPH # 0.4 x10^3/uL (1.0-4.8); LYMPH % 8 % (24-48); MEAN CORPUSCULAR HEMOGLOBIN 29 pg (25-35); MEAN CORPUSCULAR HGB CONC 33 g/dL (31-37); MEAN CORPUSCULAR VOLUME 88 fL (79-100); MONO # 0.2 x10^3/uL (0.0-1.1); MONO % 3 % (0-9); NEUT % 89 % (31-73); PLATELET COUNT 244 x10^3/uL (140-400); RED BLOOD COUNT 4.39 x10^6/uL (3.50-5.40); RED CELL DISTRIBUTION WIDTH 17.9 % (11.5-14.5); WHITE BLOOD COUNT 5.7 x10^3/uL (4.0-11.0)
[2018-06-29 05:15] LABS: CALCIUM 9.4 mg/dL (8.5-10.1); GFR 54.5; POTASSIUM 4.6 mmol/L (3.5-5.1)
[2018-06-29] MEDS: methylPREDNISolone SOD SUCC PF 40 MG/ML VIAL. IV SCH ×3 (05:19→23:48)
[2018-06-29] MEDS ORDERED: BUPIVAC MPF-EPI 0.5%-1:200000 30 ML VIAL. ONE (05:59)
[2018-06-29] MEDS ORDERED: BUPIVACAINE MPF 0.25% 30 ML VIAL. ONE (05:59)
[2018-06-29] MEDS ORDERED: IOHEXOL 300 MG/ML 100ML VIAL. ONE ×2 (05:59→18:16)
[2018-06-29] MEDS ORDERED: GELATIN SPONGE SIZE 12-7MM SPONGE. ONE (05:59)
[2018-06-29] MEDS ORDERED: PAPAVERINE 60 MG/2 ML VIAL FOR OR ONLY. ONE (06:00)
[2018-06-29] MEDS ORDERED: THROMBIN TOPICAL 20,000 UNIT SPRAY.SYRN KIT TP ONE (06:00)
[2018-06-29] MEDS ORDERED: HEPARIN SODIUM 5,000 UNIT in IV NORMAL SALINE 500ML BAG 500 ML IRR ONE ×2 (06:00→19:30)
[2018-06-29] MEDS ORDERED: ONDANSETRON PF 4 MG/2 ML VIAL. IV PRN (07:00)
[2018-06-29] MEDS ORDERED: MORPHINE SULFATE 2 MG/ML VIAL. IV PRN ×2 (07:00→17:30)
[2018-06-29] MEDS ORDERED: HYDROmorphone 2 MG/ML VIAL IV PRN (07:00)
[2018-06-29] MEDS ORDERED: IV RINGERS,LACTATED 1000ML 1,000 ML IV SCH (07:00)
[2018-06-29] MEDS ORDERED: LIDOCAINE 1% PF 2 ML VIAL. ID PRN (07:00)
[2018-06-29] MEDS ORDERED: PROCHLORPERAZINE 10 MG/2 ML VIAL. IV PRN (07:00)
[2018-06-29] MEDS ORDERED: fentaNYL PF VIAL 100 MCG/2 ML VIAL IV PRN ×3 (07:00→17:30)
[2018-06-29] MEDS: CLOPIDOGREL BISULFATE 75 MG TABLET PO SCH (08:00)
[2018-06-29] MEDS: INSULIN LISPRO 300 UNITS/3 ML INSULN.PEN. SQ SCH ×3 (08:00→17:00)
[2018-06-29] MEDS: ASPIRIN ENTERIC COATED 81 MG TABLET.DR. PO SCH (08:00)
[2018-06-29] MEDS: LEVOTHYROXINE 88 MCG TABLET PO SCH (08:00)
[2018-06-29] MEDS: HEPARIN for SUB-Q USE 5,000 UNIT/ML VIAL. SQ SCH ×2 (09:00→22:21)
[2018-06-29] MEDS: SPIRONOLACTONE 25 MG TABLET PO SCH (09:00)
[2018-06-29] MEDS: LACTOBACILLUS RHAMNOSUS GG 1 CAPSULE. PO SCH ×2 (09:00→23:47)
[2018-06-29] MEDS: POTASSIUM CHLORIDE 20 MEQ TABLET.ER. PO SCH (09:00)
[2018-06-29] MEDS ORDERED: ONDANSETRON PF 4 MG/2 ML VIAL. ONE (09:46)
[2018-06-29] MEDS ORDERED: FAMOTIDINE 20 MG/2 ML VIAL ONE (09:46)
[2018-06-29] MEDS ORDERED: ETOMIDATE 20 MG/10 ML VIAL. IV ONE (09:46)
[2018-06-29] MEDS ORDERED: PHENYLEPHRINE in 0.9% NACL PF 1 MG/10 ML SYRINGE. IV ONE ×2 (09:46→21:35)
[2018-06-29] MEDS ORDERED: LIDOCAINE 2% PF 5 ML VIAL. ONE (09:46)
[2018-06-29] MEDS ORDERED: DEXAMETHASONE SOD PHOS 20 MG/5 ML VIAL. ONE (09:46)
[2018-06-29] MEDS ORDERED: 0.9 % SODIUM CHLORIDE 20 ML VIAL. IJ ONE (09:46)
[2018-06-29] MEDS ORDERED: fentaNYL PF VIAL 100 MCG/2 ML VIAL ONE (09:47)
[2018-06-29] MEDS ORDERED: ROCURONIUM 100 MG/10 ML VIAL. ONE (09:47)
[2018-06-29] MEDS ORDERED: GLYCOPYRROLATE 1 MG/5 ML VIAL. ONE (09:47)
[2018-06-29] MEDS ORDERED: HYDROmorphone 2 MG/ML VIAL ONE (09:47)
[2018-06-29] MEDS ORDERED: NEOSTIGMINE METHYLSULFATE 5 MG/5 ML SYRINGE. ONE (09:47)
[2018-06-29] MEDS ORDERED: ALBUMIN HUMAN 5% 0 ML IV ONE (09:48)
[2018-06-29] MEDS: LISINOPRIL 5 MG TABLET. PO SCH (09:48)
[2018-06-29] MEDS: FUROSEMIDE 40 MG/4 ML VIAL. IV SCH ×2 (09:48→14:00)
[2018-06-29] MEDS ORDERED: BUPIVACAINE MPF 0.5% 30 ML VIAL. ONE (09:59)
[2018-06-29] MEDS ORDERED: BACITRACIN 50,000 UNIT VIAL. IRR ONE (10:00)
[2018-06-29] MEDS ORDERED: LIDOCAINE 1% Multi-Dose 20 ML VIAL. ONE ×2 (10:11→13:17)
[2018-06-29] MEDS ORDERED: IODIXANOL 320 MG/ML 100 ML VIAL. ONE ×5 (10:11→16:52)
[2018-06-29] MEDS ORDERED: IODIXANOL 320 MG/ML 50ML VIAL. ONE (10:11)
--- NOTE | 2018-06-29 10:57 | NUR ---
Pt to microbiology lab technician this AM for stent placement and transferring to ICU following. Will need new orders to resume therapy services as pt transferred to higher level of care. Please write PT/OT eval and treat orders once medically stable. Addendum: 06/29/18 at 1057 by CARLENE MCMANUS PT Amended: Links added.
[2018-06-29] MEDS ORDERED: ceFAZolin 2GM PREMIX 2 GM/50 ML BAG IV ONE (11:00)
[2018-06-29] MEDS ORDERED: VANCOMYCIN 1GM IVPB FOR OMNI 250 ML IV ONE ×2 (11:15→20:45)
[2018-06-29] MEDS ORDERED: HEPARIN for IV BOLUS 10,000 UNIT/10 ML VIAL. ONE ×3 (11:49→21:01)
[2018-06-29] MEDS ORDERED: SURGICEL FIBRILLAR 1X2 EACH. ONE ×2 (11:50→19:17)
[2018-06-29] MEDS ORDERED: PHENYLEPHRINE 10 MG/ML VIAL. ONE (11:57)
[2018-06-29] MEDS ORDERED: ROCURONIUM 50 MG/5 ML VIAL. ONE ×2 (12:00→19:42)
[2018-06-29] MEDS ORDERED: SEVOFLURANE > 120 MINUTES. IH ONE ×2 (12:07→21:36)
[2018-06-29] MEDS ORDERED: HEPARIN for IV BOLUS 10,000 UNIT/10 ML VIAL. IV ONE (14:15)
[2018-06-29] MEDS ORDERED: IODIXANOL 320 MG/ML 100 ML VIAL. IART ONE (14:30)
--- NOTE | 2018-06-29 14:38 | PDOC ---
PROGRESS NOTES Chief Complaint Chief Complaint Triple vessel Disease by [facility] 06/22/18 Severe ischemic CM with EF 30% and severe left main dz Severe PAD with 80% diffuse infrarenal stenosis, 95% stenosis at aortic bifurcation. Acute on chronic CHF AECOPD/pulmonary HTN LE edema more to RLE with small superficial right posterior ulcer. PAD, poor pulses - OP arteriogram Hypothyroidism TSH 5 with T4 at goal on synthroid constipated - bowel regimen Hypokalemia . corrected Morbid obesity with likely GÓMEZ Severe onychomycoses DM2 - A1c 7.9 History of Present Illness History of Present Illness wheezing improved this AM History of smoking COPD on diagnosis Chest x-ray 06/24/18 shows worsening congestion On milrinone gtt Planned for PCI of LAD, aortoiliac interventions and infrarenal aorta DBX angioplasty/stent today by [facility] and cards continue steroids, nebs Vitals Vitals Vital Signs Date Time Temp Pulse Resp B/P (MAP) Pulse Ox O2 Delivery O2 Flow Rate FiO2 06/29/18 10:15 97.2 111 20 106/72 94 Nasal Cannula 4 97.2 Physical Exam General: Alert, Oriented X3, Cooperative Heart: Regular rate, Normal S1, Normal S2 Lungs: Clear, Wheezing Abdomen: Normal bowel sounds, Soft Extremities: Other (edema) Skin: Other Labs LABS Laboratory Tests Test 06/28/18 16:46 06/28/18 20:47 06/29/18 04:00 06/29/18 07:21 Glucose (Fingerstick) 179 mg/dL (70-99) 197 mg/dL (70-99) 183 mg/dL (70-99) White Blood Count 5.7 x10^3/uL (4.0-11.0) Red Blood Count 4.39 x10^6/uL (3.50-5.40) Hemoglobin 12.7 g/dL (12.0-15.5) Hematocrit 38.6 % (36.0-47.0) Mean Corpuscular Volume 88 fL (79-100) Mean Corpuscular Hemoglobin 29 pg (25-35) Mean Corpuscular Hemoglobin Concent 33 g/dL (31-37) Red Cell Distribution Width 17.9 % (11.5-14.5) Platelet Count 244 x10^3/uL (140-400) Neutrophils (%) (Auto) 89 % (31-73) Lymphocytes (%) (Auto) 8 % (24-48) Monocytes (%) (Auto) 3 % (0-9) Eosinophils (%) (Auto) 0 % (0-3) Basophils (%) (Auto) 0 % (0-3) Neutrophils # (Auto) 5.0 x10^3uL (1.8-7.7) Lymphocytes # (Auto) 0.4 x10^3/uL (1.0-4.8) Monocytes # (Auto) 0.2 x10^3/uL (0.0-1.1) Eosinophils # (Auto) 0.0 x10^3/uL (0.0-0.7) Basophils # (Auto) 0.0 x10^3/uL (0.0-0.2) Sodium Level 125 mmol/L (136-145) Potassium Level 4.6 mmol/L (3.5-5.1) Chloride Level 86 mmol/L (98-107) Carbon Dioxide Level 30 mmol/L (21-32) Anion Gap 9 (6-14) Blood Urea Nitrogen 13 mg/dL (7-20) Creatinine 1.0 mg/dL (0.6-1.0) Estimated GFR (Cockcroft-Gault) 54.5 Glucose Level 203 mg/dL (70-99) Calcium Level 9.4 mg/dL (8.5-10.1) Assessment and Plan Assessmemt and Plan Problems Medical Problems: (1) Congestive heart failure Status: Acute Comment Review of Relevant I have reviewed the following items rosangela (where applicable) has been applied. Labs Laboratory Tests Test 06/27/18 17:14 06/27/18 18:05 06/27/18 20:36 06/28/18 07:17 Glucose (Fingerstick) 220 mg/dL (70-99) 181 mg/dL (70-99) 175 mg/dL (70-99) White Blood Count 5.5 x10^3/uL (4.0-11.0) Red Blood Count 4.35 x10^6/uL (3.50-5.40) Hemoglobin 12.5 g/dL (12.0-15.5) Hematocrit 38.0 % (36.0-47.0) Mean Corpuscular Volume 87 fL (79-100) Mean Corpuscular Hemoglobin 29 pg (25-35) Mean Corpuscular Hemoglobin Concent 33 g/dL (31-37) Red Cell Distribution Width 17.9 % (11.5-14.5) Platelet Count 199 x10^3/uL (140-400) Neutrophils (%) (Auto) 94 % (31-73) Lymphocytes (%) (Auto) 4 % (24-48) Monocytes (%) (Auto) 1 % (0-9) Eosinophils (%) (Auto) 0 % (0-3) Basophils (%) (Auto) 0 % (0-3) Neutrophils # (Auto) 5.1 x10^3uL (1.8-7.7) Lymphocytes # (Auto) 0.2 x10^3/uL (1.0-4.8) Monocytes # (Auto) 0.1 x10^3/uL (0.0-1.1) Eosinophils # (Auto) 0.0 x10^3/uL (0.0-0.7) Basophils # (Auto) 0.0 x10^3/uL (0.0-0.2) Segmented Neutrophils % 81 % (35-66) Band Neutrophils % 12 % (0-9) Lymphocytes % 4 % (24-48) Atypical Lymphocytes % (Manual) 2 % (0-0) Monocytes % 1 % (0-10) Platelet Estimate Adequate (ADEQUATE) Large Platelets Occ Anisocytosis Slight Prothrombin Time 13.6 SEC (11.7-14.0) Prothromb Time International Ratio 1.1 (0.8-1.1) Heparin Anti-Xa Act, Unfractionated < 0.10 IU/mL (0.30-0.70) Sodium Level 126 mmol/L (136-145) Potassium Level 4.3 mmol/L (3.5-5.1) Chloride Level 86 mmol/L (98-107) Carbon Dioxide Level 28 mmol/L (21-32) Anion Gap 12 (6-14) Blood Urea Nitrogen 8 mg/dL (7-20) Creatinine 0.9 mg/dL (0.6-1.0) Estimated GFR (Cockcroft-Gault) 61.5 BUN/Creatinine Ratio 9 (6-20) Glucose Level 199 mg/dL (70-99) Calcium Level 8.9 mg/dL (8.5-10.1) Total Bilirubin 2.2 mg/dL (0.2-1.0) Aspartate Amino Transf (AST/SGOT) 16 U/L (15-37) Alanine Aminotransferase (ALT/SGPT) 19 U/L (14-59) Alkaline Phosphatase 202 U/L (46-116) Total Protein 6.8 g/dL (6.4-8.2) Albumin 3.4 g/dL (3.4-5.0) Albumin/Globulin Ratio 1.0 (1.0-1.7) Test 06/28/18 12:03 06/28/18 16:46 06/28/18 20:47 06/29/18 04:00 Glucose (Fingerstick) 227 mg/dL (70-99) 179 mg/dL (70-99) 197 mg/dL (70-99) White Blood Count 5.7 x10^3/uL (4.0-11.0) Red Blood Count 4.39 x10^6/uL (3.50-5.40) Hemoglobin 12.7 g/dL (12.0-15.5) Hematocrit 38.6 % (36.0-47.0) Mean Corpuscular Volume 88 fL (79-100) Mean Corpuscular Hemoglobin 29 pg (25-35) Mean Corpuscular Hemoglobin Concent 33 g/dL (31-37) Red Cell Distribution Width 17.9 % (11.5-14.5) Platelet Count 244 x10^3/uL (140-400) Neutrophils (%) (Auto) 89 % (31-73) Lymphocytes (%) (Auto) 8 % (24-48) Monocytes (%) (Auto) 3 % (0-9) Eosinophils (%) (Auto) 0 % (0-3) Basophils (%) (Auto) 0 % (0-3) Neutrophils # (Auto) 5.0 x10^3uL (1.8-7.7) Lymphocytes # (Auto) 0.4 x10^3/uL (1.0-4.8) Monocytes # (Auto) 0.2 x10^3/uL (0.0-1.1) Eosinophils # (Auto) 0.0 x10^3/uL (0.0-0.7) Basophils # (Auto) 0.0 x10^3/uL (0.0-0.2) Sodium Level 125 mmol/L (136-145) Potassium Level 4.6 mmol/L (3.5-5.1) Chloride Level 86 mmol/L (98-107) Carbon Dioxide Level 30 mmol/L (21-32) Anion Gap 9 (6-14) Blood Urea Nitrogen 13 mg/dL (7-20) Creatinine 1.0 mg/dL (0.6-1.0) Estimated GFR (Cockcroft-Gault) 54.5 Glucose Level 203 mg/dL (70-99) Calcium Level 9.4 mg/dL (8.5-10.1) Test 06/29/18 07:21 Glucose (Fingerstick) 183 mg/dL (70-99) Laboratory Tests Test 06/28/18 16:46 06/28/18 20:47 06/29/18 04:00 06/29/18 07:21 Glucose (Fingerstick) 179 mg/dL (70-99) 197 mg/dL (70-99) 183 mg/dL (70-99) White Blood Count 5.7 x10^3/uL (4.0-11.0) Red Blood Count 4.39 x10^6/uL (3.50-5.40) Hemoglobin 12.7 g/dL (12.0-15.5) Hematocrit 38.6 % (36.0-47.0) Mean Corpuscular Volume 88 fL (79-100) Mean Corpuscular Hemoglobin 29 pg (25-35) Mean Corpuscular Hemoglobin Concent 33 g/dL (31-37) Red Cell Distribution Width 17.9 % (11.5-14.5) Platelet Count 244 x10^3/uL (140-400) Neutrophils (%) (Auto) 89 % (31-73) Lymphocytes (%) (Auto) 8 % (24-48) Monocytes (%) (Auto) 3 % (0-9) Eosinophils (%) (Auto) 0 % (0-3) Basophils (%) (Auto) 0 % (0-3) Neutrophils # (Auto) 5.0 x10^3uL (1.8-7.7) Lymphocytes # (Auto) 0.4 x10^3/uL (1.0-4.8) Monocytes # (Auto) 0.2 x10^3/uL (0.0-1.1) Eosinophils # (Auto) 0.0 x10^3/uL (0.0-0.7) Basophils # (Auto) 0.0 x10^3/uL (0.0-0.2) Sodium Level 125 mmol/L (136-145) Potassium Level 4.6 mmol/L (3.5-5.1) Chloride Level 86 mmol/L (98-107) Carbon Dioxide Level 30 mmol/L (21-32) Anion Gap 9 (6-14) Blood Urea Nitrogen 13 mg/dL (7-20) Creatinine 1.0 mg/dL (0.6-1.0) Estimated GFR (Cockcroft-Gault) 54.5 Glucose Level 203 mg/dL (70-99) Calcium Level 9.4 mg/dL (8.5-10.1) Medications Current Medications Furosemide (Lasix) 40 mg 1X ONCE IVP Last administered on 06/18/18at 14:59; Start 06/18/18 at 14:00; Stop 06/18/18 at 14:47; Status DC Aspirin (Children'S Aspirin) 324 mg 1X ONCE PO Last administered on 06/18/18at 14:59; Start 06/18/18 at 14:00; Stop 06/18/18 at 14:47; Status DC Potassium Chloride (KCl Oral Soln) 40 meq 1X ONCE PO Last administered on at 14:59; Start 06/18/18 at 15:00; Stop 06/18/18 at 15:01; Status DC Furosemide (Lasix) 40 mg DAILY IVP ; Start 06/19/18 at 09:00; Stop 06/19/18 at 09: 00; Status DC Furosemide (Lasix) 40 mg [id number] IVP ; Start 06/19/18 at 09:00; Stop 06/19/18 at 09: 00; Status DC Lisinopril (Prinivil) 2.5 mg DAILY PO Last administered on 06/29/18at 09:48; Start 06/19/18 at 09:00 Furosemide (Lasix) 40 mg [id number] IV Last administered on 06/29/18at 09:48; Start 06/18/18 at 16:00 Spironolactone (Aldactone) 25 mg DAILY PO Last administered on 4/15/19at 11:59 ; Start 06/19/18 at 09:00 Heparin Sodium (Porcine) (Heparin Sodium) 5,000 unit Q12HR SQ Last administered on 06/26/18 20:40; Start 06/18/18 at 16:00 Sodium Chloride (Normal Saline Flush) 3 ml QSHIFT PRN IV AFTER MEDS AND BLOOD DRAWS; Start 06/18/18 at 16:00 Ondansetron HCl (Zofran) 4 mg PRN Q4HRS PRN IV NAUSEA/VOMITING; Start 06/18/18 at 16:00 Acetaminophen (Tylenol) 650 mg PRN Q4HRS PRN PO TEMP OVER 100.4F OR MILD PAIN Last administered on 06/28/18 20:56; Start 06/18/18 at 16:00 Sodium Monofluorophosphate (Fleet Adult) 133 ml PRN DAILY PRN SD CONSTIPATION; Start 06/18/18 at 16:00 Diphenhydramine HCl (Benadryl) 25 mg PRN Q4HRS PRN IVP ITCHING Last administered on 06/28/18 20:56; Start 06/18/18 at 16:00 Docusate Sodium (Colace) 100 mg PRN BID PRN PO CONSTIPATION Last administered on 06/27/18 08:41; Start 06/18/18 at 16:00 Albuterol Sulfate (Ventolin Neb Soln) 2.5 mg PRN Q4HRS PRN NEB SHORTNESS OF BREATH; Start 06/18/18 at 16:00 Albuterol/ Ipratropium (Duoneb) 3 ml Q4HRS NEB Last administered on 06/29/18 07:45; Start 06/18/18 at 16:00 Aspirin (Ecotrin) 81 mg DAILY08 PO Last administered on 06/28/18 10:14; Start 06/19/18 at 08:00 Levothyroxine Sodium (Synthroid) 88 mcg DAILY08 PO Last administered on 10:14; Start 06/19/18 at 08:00 Latanoprost (Xalatan) 1 drop QHS OU Last administered on 06/28/18 20:56; Start 06/18/18 at 21:00 Potassium Chloride (KCl Oral Soln) 40 meq 1X ONCE PO Last administered on 4/6/ 19at 13:43; Start 06/19/18 at 13:00; Stop 06/19/18 at 13:01; Status DC Insulin Glargine (Lantus) 5 units QHS SQ Last administered on 06/28/18at 20:57; Start 06/19/18 at 21:00 Insulin Human Lispro (HumaLOG) 0-5 UNITS TIDWMEALS SQ Last administered on 06/28at 17:37; Start 06/19/18 at 12:30 Dextrose (Dextrose 50%-Water Syringe) 12.5 gm PRN Q15MIN PRN IV SEE COMMENTS; Start 06/19/18 at 12:15 Clindamycin Phosphate 50 ml @ 100 mls/hr Q8HRS IV Last administered on at 14:17; Start 06/21/18 at 10:00; Stop 06/24/18 at 15:00; Status DC Lactobacillus Rhamnosus (Culturelle) 1 cap BID PO Last administered on at 20:56; Start 06/21/18 at 21:00 Milrinone Lactate/ Dextrose 100 ml @ 4.022 mls/ hr CONT PRN IV SEE I/O RECORD Last administered on 06/28/18at 20:55; Start 06/22/18 at 13:00 Iodixanol (Visipaque 320) 100 ml STK-MED ONCE .ROUTE ; Start 06/23/18 at 06:35; Stop 06/23/18 at 06:36; Status DC Lidocaine HCl (Lidocaine 1% 20ml Vial) 20 ml STK-MED ONCE .ROUTE ; Start at 06:35; Stop 06/23/18 at 06:36; Status DC Heparin Sodium/ Sodium Chloride 1,500 ml @ As Directed STK-MED ONCE .ROUTE ; Start 06/23/18 at 06:35; Stop 06/23/18 at 06:36; Status DC Iodixanol (Visipaque 320) 100 ml STK-MED ONCE .ROUTE ; Start 06/23/18 at 07:26; Stop 06/23/18 at 07:27; Status DC Midazolam HCl (Versed) 2 mg STK-MED ONCE .ROUTE ; Start 06/23/18 at 07:30; Stop 06/23/18 at 07:31; Status DC Fentanyl Citrate (Fentanyl 2ml Vial) 100 mcg STK-MED ONCE .ROUTE ; Start at 07:30; Stop 06/23/18 at 07:31; Status DC Verapamil HCl (Verapamil) 5 mg STK-MED ONCE .ROUTE ; Start 06/23/18 at 07:30; Stop 06/23/18 at 07:31; Status DC Heparin Sodium (Porcine) (Heparin Sodium) 10,000 unit STK-MED ONCE .ROUTE ; Start 06/23/18 at 07:30; Stop 06/23/18 at 07:31; Status DC Nitroglycerin (Nitroglycerin) 200 mcg STK-MED ONCE .ROUTE ; Start 06/23/18 at 07 :30; Stop 06/23/18 at 07:31; Status DC Nitroglycerin (Nitroglycerin) 200 mcg 1X ONCE IART Last administered on at 08:20; Start 06/23/18 at 08:15; Stop 06/23/18 at 08:18; Status DC Verapamil HCl (Verapamil) 2.5 mg 1X ONCE IART Last administered on 06/23/18at 08:22; Start 06/23/18 at 08:15; Stop 06/23/18 at 08:18; Status DC Heparin Sodium (Porcine) (Heparin Sodium) 2,500 unit 1X ONCE IART Last administered on 06/23/18at 08:23; Start 06/23/18 at 08:15; Stop 06/23/18 at 08:18 ; Status DC Heparin Sodium/ Sodium Chloride (HEPARIN for ARTERIAL LINE FLUSH) 1,000 unit 1X ONCE IART Last administered on 06/23/18at 08:20; Start 06/23/18 at 08:15; Stop 06/23/18 at 08:18; Status DC Heparin Sodium/ Sodium Chloride (HEPARIN for ARTERIAL LINE FLUSH) 1,000 unit 1X ONCE IART Last administered on 06/23/18at 08:20; Start 06/23/18 at 08:15; Stop 06/23/18 at 08:18; Status DC Midazolam HCl (Versed) 1.5 mg 1X ONCE IV Last administered on 06/23/18at 08:21 ; Start 06/23/18 at 08:15; Stop 06/23/18 at 08:18; Status DC Fentanyl Citrate (Fentanyl 2ml Vial) 75 mcg 1X ONCE IV Last administered on 01/01at 08:22; Start 06/23/18 at 08:15; Stop 06/23/18 at 08:18; Status DC Iodixanol (Visipaque 320) 99 ml 1X ONCE IART Last administered on 06/23/18at 08 :20; Start 06/23/18 at 08:15; Stop 06/23/18 at 08:18; Status DC Lidocaine HCl (Lidocaine 1% 20ml Vial) 1 ml 1X ONCE INJ Last administered on at 08:20; Start 06/23/18 at 08:15; Stop 06/23/18 at 08:18; Status DC Info (CONTRAST GIVEN -- Rx MONITORING) 1 each PRN DAILY PRN MC SEE COMMENTS; Start 06/23/18 at 08:30; Stop 06/25/18 at 08:29; Status DC Sodium Chloride 250 ml @ 250 mls/hr 1X ONCE IV Last administered on at 11:07; Start 06/23/18 at 11:15; Stop 06/23/18 at 12:14; Status DC Furosemide (Lasix) 40 mg 1X ONCE IVP Last administered on 06/23/18at 20:46; Start 06/23/18 at 20:15; Stop 06/23/18 at 20:19; Status DC Magnesium Sulfate 50 ml @ 25 mls/hr 1X ONCE IV Last administered on 06/24/18at 14:13; Start 06/24/18 at 12:30; Stop 06/24/18 at 14:29; Status DC Potassium Chloride (Klor-Con) 40 meq 1X ONCE PO Last administered on at 14:14; Start 06/24/18 at 12:30; Stop 06/24/18 at 12:31; Status DC Clindamycin HCl (Cleocin) 300 mg QID PO Last administered on 06/28/18at 20:56; Start 06/24/18 at 21:00 Potassium Chloride (Klor-Con) 40 meq DAILY PO Last administered on 06/28/18at 10 :16; Start 06/25/18 at 11:15 Magnesium Sulfate 50 ml @ 25 mls/hr 1X ONCE IV Last administered on 06/25/18at 12:07; Start 06/25/18 at 11:15; Stop 06/25/18 at 13:14; Status DC Potassium Chloride (Klor-Con) 40 meq 1X ONCE PO Last administered on at 08:50; Start 06/26/18 at 07:45; Stop 06/26/18 at 07:50; Status DC Clopidogrel Bisulfate (Plavix) 300 mg 1X ONCE PO Last administered on at 13:10; Start 06/26/18 at 11:00; Stop 06/26/18 at 11:06; Status DC Clopidogrel Bisulfate (Plavix) 75 mg DAILYWBKFT PO Last administered on at 11:58; Start 06/27/18 at 08:00 Methylprednisolone Sodium Succinate (SOLU-Medrol 40MG VIAL) 40 mg Q8HRS IV Last administered on 06/29/18at 05:19; Start 06/27/18 at 09:15 Atorvastatin Calcium (Lipitor) 40 mg QHS PO Last administered on 06/28/18at 21: 01; Start 06/28/18 at 21:00 Heparin Sodium (Porcine) 5000 unit/Sodium Chloride 505 ml @ 505 mls/hr 1X ONCE IRR ; Start 06/29/18 at 06:00; Stop 06/29/18 at 06:59; Status DC Cefazolin Sodium/ Dextrose 50 ml @ 100 mls/hr 1X PREOP PRN IV on hold OR; Start 06/29/18 at 06:00; Stop 06/29/18 at 11:19; Status DC Ondansetron HCl (Zofran) 4 mg PRN Q6HRS PRN IV NAUSEA/VOMITING; Start 06/29/18 at 07:00; Stop 06/30/18 at 06:59 Fentanyl Citrate (Fentanyl 2ml Vial) 25 mcg PRN Q5MIN PRN IV MILD PAIN; Start 06/29/18 at 07:00; Stop 06/30/18 at 06:59 Fentanyl Citrate (Fentanyl 2ml Vial) 50 mcg PRN Q5MIN PRN IV MODERATE TO SEVERE PAIN; Start 06/29/18 at 07:00; Stop 06/30/18 at 06:59 Morphine Sulfate (Morphine Sulfate) 1 mg PRN Q10MIN PRN IV SEVERE PAIN; Start 06/29/18 at 07:00; Stop 06/30/18 at 06:59 Ringer's Solution 1,000 ml @ 30 mls/hr Q24H IV Last administered on 06/29/18at 10:12; Start 06/29/18 at 07:00; Stop 06/29/18 at 18:59 Lidocaine HCl (Xylocaine-Mpf 1% 2ml Vial) 2 ml PRN 1X PRN ID PRIOR TO IV START ; Start 06/29/18 at 07:00; Stop 06/30/18 at 06:59 Hydromorphone HCl (Dilaudid) 0.5 mg PRN Q10MIN PRN IV SEV PAIN, Second choice; Start 06/29/18 at 07:00; Stop 06/30/18 at 06:59 Prochlorperazine Edisylate (Compazine) 5 mg PACU PRN PRN IV NAUSEA, MRX1; Start 06/29/18 at 07:00; Stop 06/30/18 at 06:59 Bupivacaine HCl/ Epinephrine Bitart (Sensorcain-Mpf Epi 0.5%-1:[id number]) 30 ml STK -MED ONCE .ROUTE ; Start 06/29/18 at 05:59; Stop 06/29/18 at 06:59; Status DC Gelatin (Gelfoam Size 12-7mm) 1 each STK-MED ONCE .ROUTE ; Start 06/29/18 at 05 :59; Stop 06/29/18 at 06:59; Status DC Iohexol (Omnipaque 300 Mg/ml) 100 ml STK-MED ONCE .ROUTE ; Start 06/29/18 at 05: 59; Stop 06/29/18 at 07:00; Status DC Bupivacaine HCl (Sensorcaine Mpf 0.25%) 30 ml STK-MED ONCE .ROUTE ; Start at 05:59; Stop 06/29/18 at 07:00; Status DC Papaverine HCl 60 mg STK-MED ONCE .ROUTE ; Start 06/29/18 at 06:00; Stop at 07:01; Status DC Thrombin 20,000 unit STK-MED ONCE TP ; Start 06/29/18 at 06:00; Stop 06/29/18 at 07:01; Status DC Sodium Chloride (SODIUM CHLORIDE 20ml) 20 ml STK-MED ONCE IJ ; Start 06/29/18 at 09:46; Stop 06/29/18 at 09:47; Status DC Famotidine (Pepcid Vial) 20 mg STK-MED ONCE .ROUTE ; Start 06/29/18 at 09:46; Stop 06/29/18 at 09:47; Status DC Ondansetron HCl (Zofran) 4 mg STK-MED ONCE .ROUTE ; Start 06/29/18 at 09:46; Stop 06/29/18 at 09:47; Status DC Dexamethasone Sodium Phosphate (Decadron) 20 mg STK-MED ONCE .ROUTE ; Start at 09:46; Stop 06/29/18 at 09:47; Status DC Lidocaine HCl (Lidocaine Pf 2% Vial) 5 ml STK-MED ONCE .ROUTE ; Start 06/29/18 at 09:46; Stop 06/29/18 at 09:47; Status DC Etomidate (Amidate) 20 mg STK-MED ONCE IV ; Start 06/29/18 at 09:46; Stop at 09:47; Status DC Phenylephrine HCl (PHENYLEPHRINE in 0.9% NACL PF) 1 mg STK-MED ONCE IV ; Start 06/29/18 at 09:46; Stop 06/29/18 at 09:47; Status DC Fentanyl Citrate (Fentanyl 2ml Vial) 100 mcg STK-MED ONCE .ROUTE ; Start at 09:47; Stop 06/29/18 at 09:48; Status DC Hydromorphone HCl (Dilaudid) 2 mg STK-MED ONCE .ROUTE ; Start 06/29/18 at 09:47 ; Stop 06/29/18 at 09:48; Status DC Glycopyrrolate (Robinul) 1 mg STK-MED ONCE .ROUTE ; Start 06/29/18 at 09:47; Stop 06/29/18 at 09:48; Status DC Rocuronium [place] (Zemuron) 100 mg STK-MED ONCE .ROUTE ; Start 06/29/18 at 09: 47; Stop 06/29/18 at 09:48; Status DC Neostigmine Methylsulfate (Neostigmine Methylsulfate) 5 mg STK-MED ONCE .ROUTE ; Start 06/29/18 at 09:47; Stop 06/29/18 at 09:48; Status DC Albumin Human 0 ml @ As Directed STK-MED ONCE IV ; Start 06/29/18 at 09:48; Stop 06/29/18 at 09:49; Status DC Iodixanol (Visipaque 320) 100 ml STK-MED ONCE .ROUTE ; Start 06/29/18 at 10:11; Stop 06/29/18 at 10:12; Status DC Lidocaine HCl (Lidocaine 1% 20ml Vial) 20 ml STK-MED ONCE .ROUTE ; Start at 10:11; Stop 06/29/18 at 10:12; Status DC Iodixanol (Visipaque 320) 50 ml STK-MED ONCE .ROUTE ; Start 06/29/18 at 10:11; Stop 06/29/18 at 10:12; Status DC Heparin Sodium/ Sodium Chloride 1,000 ml @ As Directed STK-MED ONCE .ROUTE ; Start 06/29/18 at 10:11; Stop 06/29/18 at 10:12; Status DC Bupivacaine HCl (Sensorcaine Mpf 0.5%) 30 ml STK-MED ONCE .ROUTE Last administered on 06/29/18at 12:42; Start 06/29/18 at 09:59; Stop 06/29/18 at 10:59 ; Status DC Bacitracin (Bacitracin) 50,000 unit STK-MED ONCE IRR ; Start 06/29/18 at 10:00; Stop 06/29/18 at 11:00; Status DC Vancomycin HCl 250 ml @ 250 mls/hr 1X ONCE IV ; Start 06/29/18 at 11:15; Stop 06/29/18 at 12:14; Status DC Heparin Sodium (Porcine) (Heparin Sodium) 10,000 unit STK-MED ONCE .ROUTE ; Start 06/29/18 at 11:49; Stop 06/29/18 at 11:50; Status DC Cellulose (Surgicel Fibrillar 1x2) 1 each STK-MED ONCE .ROUTE ; Start 06/29/18 at 11:50; Stop 06/29/18 at 11:51; Status DC Phenylephrine HCl (Justin-Synephrine Inj) 10 mg STK-MED ONCE .ROUTE ; Start at 11:57; Stop 06/29/18 at 11:58; Status DC Sevoflurane (Ultane) 90 ml STK-MED ONCE IH ; Start 06/29/18 at 12:07; Stop 06/29 at 12:08; Status DC Heparin Sodium/ Sodium Chloride 500 ml @ As Directed STK-MED ONCE .ROUTE ; Start 06/29/18 at 12:35; Stop 06/29/18 at 12:36; Status DC Iodixanol (Visipaque 320) 100 ml STK-MED ONCE .ROUTE ; Start 06/29/18 at 12:52; Stop 06/29/18 at 12:53; Status DC Iodixanol (Visipaque 320) 100 ml STK-MED ONCE .ROUTE ; Start 06/29/18 at 13:17; Stop 06/29/18 at 13:18; Status DC Lidocaine HCl (Lidocaine 1% 20ml Vial) 20 ml STK-MED ONCE .ROUTE ; Start at 13:17; Stop 06/29/18 at 13:18; Status DC Heparin Sodium/ Sodium Chloride 1,000 ml @ As Directed STK-MED ONCE .ROUTE ; Start 06/29/18 at 13:18; Stop 06/29/18 at 13:19; Status DC Heparin Sodium (Porcine) (Heparin Sodium) 10,000 unit STK-MED ONCE .ROUTE ; Start 06/29/18 at 13:19; Stop 06/29/18 at 13:20; Status DC Heparin Sodium/ Sodium Chloride (HEPARIN for ARTERIAL LINE FLUSH) 1,000 unit 1X ONCE IART ; Start 06/29/18 at 14:15; Stop 06/29/18 at 14:16; Status DC Heparin Sodium/ Sodium Chloride (HEPARIN for ARTERIAL LINE FLUSH) 1,000 unit 1X ONCE IART ; Start 06/29/18 at 14:15; Stop 06/29/18 at 14:16; Status DC Heparin Sodium (Porcine) (Heparin Sodium) 4,000 unit 1X ONCE IV ; Start at 14:15; Stop 06/29/18 at 14:16; Status DC Iodixanol (Visipaque 320) 100 ml 1X ONCE IART ; Start 06/29/18 at 14:30; Stop 06/29/18 at 14:31; Status DC Active Scripts Active Clindamycin Hcl 300 Mg Capsule 300 Mg PO QID 7 Days Lasix (Furosemide) 40 Mg Tablet 40 Mg PO BID 14 Days Aldactone (Spironolactone) 25 Mg Tablet 25 Mg PO DAILY MDD 1 Lisinopril 5 Mg Tablet 2.5 Mg PO DAILY MDD 1 Proair Hfa (Albuterol Sulfate) 8.5 Gm Hfa.aer.ad 2.5 Mg NEB PRN Q4HRS PRN MDD 1 Reported Aspir-Low (Aspirin) 81 Mg Tablet.dr 1 Tab PO DAILY Triamterene-Hctz 37.5-25 Mg Cp (Triamterene/Hydrochlorothiazid) 1 Each Capsule 1 Cap PO DAILY Synthroid (Levothyroxine Sodium) 88 Mcg Tablet 1 Tab PO DAILY Latanoprost 2.5 Ml Drops 1 Drop EACHEYE QHS Vitals/I & O Vital Sign - Last 24 Hours 06/28/18 06/28/18 06/28/18 06/28/18 15:22 16:20 19:36 19:42 Temp 97.6 97.6 Pulse 103 Resp 18 B/P (MAP) 112/67 (82) Pulse Ox 90 90 93 O2 Delivery Nasal Cannula Nasal Cannula Nasal Cannula Nasal Cannula O2 Flow Rate 3.0 3.0 4.0 3.0 06/28/18 06/28/18 06/29/18 06/29/18 19:55 23:00 02:25 07:00 Temp 97.6 98.0 98.1 97.4 97.6 98.0 98.1 97.4 Pulse 100 101 102 105 Resp 18 18 20 20 B/P (MAP) 107/65 (79) 101/57 (72) 121/76 (91) 128/80 (96) Pulse Ox 94 93 94 92 O2 Delivery Nasal Cannula Nasal Cannula Nasal Cannula Nasal Cannula O2 Flow Rate 3.0 3.0 3.0 3.0 06/29/18 06/29/18 06/29/18 06/29/18 07:45 08:00 09:48 10:15 Temp 97.2 97.2 Pulse 107 111 Resp 20 B/P (MAP) 113/78 106/72 Pulse Ox 96 94 O2 Delivery Nasal Cannula Nasal Cannula Nasal Cannula O2 Flow Rate 3.0 3.0 4 Intake and Output 06/28/18 06/28/18 06/29/18 14:59 22:59 06:59 Intake Total 48 ml Output Total 725 ml 520 ml Balance -725 ml -472 ml ROZ HOPKINS MD Jun 29, 2018 14:38
[2018-06-29 14:56] LABS: BASO % 0 % (0-3); EOS % 0 % (0-3); HEMATOCRIT 36.1 % (36.0-47.0); HEMOGLOBIN 11.9 g/dL (12.0-15.5); LYMPH # 0.4 x10^3/uL (1.0-4.8); LYMPH % 5 % (24-48); MEAN CORPUSCULAR HEMOGLOBIN 29 pg (25-35); MEAN CORPUSCULAR HGB CONC 33 g/dL (31-37); MEAN CORPUSCULAR VOLUME 88 fL (79-100); MONO # 0.4 x10^3/uL (0.0-1.1); MONO % 6 % (0-9); NEUT # 7.1 x10^3uL (1.8-7.7); NEUT % 90 % (31-73); PLATELET COUNT 299 x10^3/uL (140-400); RED BLOOD COUNT 4.12 x10^6/uL (3.50-5.40); RED CELL DISTRIBUTION WIDTH 17.6 % (11.5-14.5); WHITE BLOOD COUNT 7.9 x10^3/uL (4.0-11.0)
[2018-06-29] MEDS ORDERED: NITROGLYCERIN 200 MCG/2 ML SYRINGE FOR CATH/VASC LAB. IART ONE (15:30)
--- NOTE | 2018-06-29 16:52 | OP ---
DATE OF SURGERY: 06/29/2018 PREOPERATIVE DIAGNOSES: 1. Severe coronary artery disease. 2. Bilateral critical common iliac artery stenosis and terminal aortic stenosis. 3. Severe infrarenal aortic stenosis secondary to an eccentric aortic plaque. INDICATIONS: This is a 73-year-old female with severe left main coronary artery disease and a small ulcer in her left foot. She has been evaluated and underwent cardiac catheterization, which showed severe left main coronary artery disease. Vascular Surgery has been consulted prior to that procedure and an aortogram and pelvic runoff arteriography had been performed. This showed a high-grade infrarenal aortic stenosis secondary to an eccentric plaque and near occlusive disease in both common iliac arteries. The patient needed access for Impella device placement and high risk coronary artery intervention and this needed to be provided with treatment of her aortoiliac disease. It was recommended that both common iliac artery stenoses be treated with angioplasty and stent deployment as well as her infrarenal aorta. These were treated with [place] VBX devices on both of these locations. The iliac lesions were treated with 9 x 59 mm VBX devices expanded to 11 atmospheres of pressure. The aortic plaque was treated with 59 x 11 mm stent expanded to 11 atmospheres of pressure. Following completion arteriogram, it appeared that there was adequate lumen for device placement into the ascending aorta and wide patency of both iliac arteries was noted as well. No additional intervention was performed and the patient was transported from the biplane room to the cardiac catheterization lab for Impella device placement and the left main coronary artery intervention. She had 2 long 8-Rwandan sheaths in. She had received an initial dose of 6000 units of intravenous heparin and she was at about 50 minutes from her initial heparin anticoagulation, when the patient was moved from the biplane room to the clinical laboratory science professor for additional treatment. This was all discussed with Dr. Solano including heparin administration. He is going to place Perclose devices and would like to hold off on heparin anticoagulation until these were reinserted. Care of the patient was turned over to Dr. Solano at operative completion for coronary intervention. DESCRIPTION OF PROCEDURE: After informed consent was obtained, the patient was brought to the biplane room. General anesthetic was administered. She was prepped and draped in a sterile fashion. Using ultrasound guidance, both common femoral arteries were accessed with micropuncture needles. An 0.014 wire was advanced into the iliac system and a 4-Rwandan transition sheath was passed over the top of this. The inner cannula and 0.014 wire were removed and a 0.035 Glidewire was then passed up into the abdominal aorta, passed the high-grade stenosis. A short 8-Rwandan sheath was passed up on the right and a short 8-Rwandan sheath was passed up on the left. A vertebral catheter was passed up into the abdominal aorta. This required some manipulation at the left iliac system to cross the high-grade stenosis. Once this had been achieved, wire exchange with a Lunderquist Super-Stiff wire was completed and on the right side, an 8 x 45 cm sheath was passed. The short 8-Rwandan sheath was removed and a new 8-Rwandan sheath was passed over the Lunderquist wire being observed through its passage in the grade iliac stenosis. On the left side, similarly, the wire exchange with an Amplatz Super Stiff wire was completed and a 35 cm 8-Rwandan sheath was passed over the top the wire into the distal aorta. Once we had ascertained the access was possible, the sheath was withdrawn and magnification arteriography at the aortic bifurcation was completed. The device was selected, a 9 x 59 VBX [place]-Bolivar Viabahn graft on the right and left. The sheaths were replaced up into the abdominal aorta. The device was positioned with approximately a cm half into the abdominal aorta. The sheaths were withdrawn and the devices were both deployed to 11 atmospheres of pressure. This would bring the device deployment size up to 9.5-10 cm diameter. Once this was completed, the balloons were withdrawn. Repeat arteriography showed wide patency at the aortic bifurcation bilaterally. A universal flush catheter was then passed up into the visceral segment of the abdominal aorta. Magnification arteriography was obtained carefully delineating the renal arteries. There was an inferior pole renal artery on the right. A specific view of this as far as its contribution to right renal artery perfusion was obtained and it only provided flow to approximately 10-15% of the inferior pole segment of the right renal arteries and both of the right renal parenchyma and both renal parenchymas seem to be functioning normally. It was elected to sacrifice this to allow for treatment of the eccentric aortic plaque with a better long-term outcome. An aortic VBX balloon was then brought on field. This was an 11 x 39 balloon. It was positioned below the main renal arteries bilaterally and inflated. This was taken up to 11 atmospheres of pressure. Balloons were taken down. Repeat arteriography showed improved channel in the aorta without irregularities. The patient had already received 5000 units of intravenous heparin when the 8-Rwandan sheaths were placed and she continued on that. This was about 30 minutes following heparin anticoagulation. Once this had been obtained, the procedure was reviewed with Dr. Solano. He wanted the patient transferred over the cardiac catheterization lab for an Impella device insertion and cardiac catheterization and left main angioplasty. The sheaths were left in place. The sterile field was secured and the wires were left in place. The patient remained intubated and was transported and ventilated from the biplane room to the cardiac clinical laboratory science professor in satisfactory stable condition at this point in time. Blood pressure remained stable and we elected to proceed as scheduled with the coronary intervention. ELSIE BEDOLLA MD DR: DAREN/rich JOB#: [id number] / [id number]
[2018-06-29] MEDS ORDERED: MORPHINE SULFATE 4 MG/ML VIAL. IV PRN (17:30)
[2018-06-29] MEDS ORDERED: CLOPIDOGREL BISULFATE 75 MG TABLET PO ONE (17:30)
[2018-06-29] MEDS ORDERED: VECURONIUM BOLUS 10 MG VIAL. IV PRN (17:30)
[2018-06-29] MEDS ORDERED: ASPIRIN RECTAL 300 MG SUPP. PR ONE (17:30)
--- NOTE | 2018-06-29 17:49 | PDOC ---
Provider Note Provider Note Successful Impella assisted LM and LAD PCI. Unable to wire the LCx MONEY LAUNDERING INVESTIGATOR. Due to contrast load/case time/fluoro time, deferred for later time depending on patient symptoms. Right groin closed with Perclose and angioseal. Left groin attempted to be closed with angioseal but had persistent bleeding, manual pressure held. ACT last check was 190 after sheaths were pulled. Right leg dopplerable pulse in the AT. Left leg unable to doppler pulses. Will check stat LLE arterial doppler to ensure flow in the profunda and MARINA MANAGER. Discussed with family. ALYSSIA PASCUAL MD Jun 29, 2018 17:49
[2018-06-29] MEDS: MIDAZOLAM 100mg/100ml NS BAG 100 ML IV PRN (18:17)
--- NOTE | 2018-06-29 18:45 | NUR ---
ultrasound performed on lower extremities due to no pulses in left leg. dr moreira at bedside. dr simmons notified and spoke with dr moreira. or team recalled for pt to return to or for repair. pt continues on ventilator with versed and fentynal for sedation.
[2018-06-29 19:07] LABS: BASE EXCESS COOX 4 mmol/L (-3-3); HCO3 COOX 27 mmol/L (21-28); METHEMOGLOBIN 0.3 % (0.0-1.9); OXYHEMOGLOBIN 91.1 %; PCO2 COOX 34 mmHg (35-46); PO2 COOX 63 mmHg (65-108); SAT O2 COOX 92 % (92-99)
--- NOTE | 2018-06-29 19:26 | RAD ---
MR#: [id number] Date of Study: 06/29/2018 Ordering Physician: ALYSSIA SOLANO, Referring Physician: DA MCADAMS Tech: Darya Renee RT R, [facility] Patient Location: IN-PATIENT Indications Cold Sensitivity POST OP NO PULSE FELT IN LT LEG Risk Factors History of Lower Extremity PAD: Bilaterally VELOCITY AND DOPPLER WAVEFORM ANALYSIS RIGHT cm/secWaveformSeverity LEFT cm/secWaveform Severity pCFA 260.0BiphasicpCFA 0.0OccludedOccluded (100%) Prof Fem Art. Prof Fem Art. 23.0MonophasicSevere > 75% Fem Art Prox. Fem Art Prox. 0.0OccludedOccluded (100%) Pop Art(Fossa) Pop Art(AK) 15.0MonophasicSevere > 75% Findings Louise scale images of the L COOK CHILL TECHNICIAN and LSFA do not reveal any obvious obstructive lesions. Color doppler images of the distal COOK CHILL TECHNICIAN and SFA reveal no evidence of flow. Spectral waveforms are unable to be obta ined in the COOK CHILL TECHNICIAN and SFA. This is a change compared to prior arterial duplex study. There are severely blunted monophasic waveforms in the profunda and popliteal segments again with velocities that are s ignificantly decreased compared to prior duplex ultrasound from last week. Biphasic waveforms are noted in the right COOK CHILL TECHNICIAN with peak velocity of 260 cm/s and this increased from prior but likely reflects treatment of her aorto-iliac disease. Critical Notification Critical Value: No <Conclusion> 1. Acute occlusion of the left COOK CHILL TECHNICIAN and proximal SFA. Signed by : Alyssia Solano, Electronically Approved : 06/29/2018 19:25:43
--- NOTE | 2018-06-29 19:43 | CARD ---
MR#: [id number] Date of Study: 06/29/2018 Ordering Physician: ALYSSIA SOLANO, Referring Physician: DA MCADAMS, Tech: RT Stephenie (R) ZACH APPROVED REPORT Technologist: Estrella Loza RT (R) Nurse: Procedure(s) performed: ANESTHESIA FOR SEDATION FLUORO TIME: 54.2 MIN DOSE: 381.95 Gycm2 Contrast Total: 243 ml Class IV LHC, Coronary angiography. Insertion of a left ventricular support device (CPT 1N9884F) PCI of the LAD, PCI of the LM HISTORY The patient is a 73 year-old female with a history of : coronary artery disease, hypertension, dyslip idemia. INDICATION The indication(s) include : dyspnea, cardiogenic shock with severe ischemic cardiomyopathy and severe ischemic peripheral arterial disease. . [facility] Clinical Frailty Scale [facility] Clinical Frailty Scale: Very Severely Frail Heart Failure Heart Failure: Yes If Yes, Newly Diagnosed: No If Yes, HF Type: Systolic If Yes, NYHA Class: Class III PROCEDURE NARRATIVE After appropriate informed consent the patient was initially taken to the angiographic suite in the o perating room for intervention of the aortoiliac disease by vascular surgery. Arterial access was obt ained with 8 Bangladeshi sheaths in the bilateral common femoral arteries. After successful treatment of h er aortoiliac disease with kissing iliac stents and covered expandable stent for the aortic stenosis the patient was then transferred to the Glass Rolling Machine Operator. After sterile prep and redraping of the patient the right sided 8 Bangladeshi sheath was removed and a pre -close device was placed. The sheath was then upsized to a 14 Bangladeshi 30 cm Cook sheath. Next, an Impe lla 2.5 left ventricular assist device was inserted after confirming severely elevated left ventricul ar end diastolic pressures in the setting of cardio genic shock requiring inotropic support with milr inone. Next, attention was then turned to the left main and the vessel was engaged with a 8 Bangladeshi EB U 3.5 guide catheter. Heparin was administered and an ACT was confirmed to be above 200. Next, a pro-water wire was initially unable to traverse the left main lesion to the LAD. Ultimately, a Mando blue was able to be placed into the distal LAD. Balloon angioplasty of the mid LAD lesion was performed in sequential fashion with 1.5, 2.0 and 3.0 mm balloons. The lesion in the mid LAD was then stented with a 3.0 x 15 mm balloon and postdilated with a 3.5 mm noncompliant balloon. Next several attempts were made to traverse the severely tortuous ostium of the left circumflex and despite multip le efforts using backup support system with a Corsair catheter efforts to traverse the lesion were un successful. Multiple wires including a Choice PT, Fielder XT, Mando blue and pro-water wires were unab le to fully engage the proximal circumflex. Due to contrast load, chronic total occlusion of the main obtuse marginal vessel further intervention was deferred. Attention was then turned to the left main coronary artery and the lesion was angioplastied with a 4. 0 x 15 mm balloon. Left main was stented with overlapping stents with a 4.5 x 18 and a 4.5 x 12 mm re solute drug-eluting stents. The stents were postdilated with a 5 mm noncompliant balloon at nominal p ressures. Final angiography demonstrated excellent stent expansion with robust collateral flow to the right coronary artery and left circumflex artery. The right sided 14 Bangladeshi sheath was then removed and the previously deployed preclosed suture was ti ed down. There was residual bleeding which was occluded with a 8 Bangladeshi sheath. Therefore an 8 Bangladeshi Angio-Seal device was placed and excellent hemostasis was obtained. On the left side diagnostic alyson ography revealed adequate vessel anatomy and a Angio-Seal was also deployed on the side but the Angio -Seal did not achieve occlusive seal and therefore manual compression was necessary to achieve hemost asis. Postoperatively the right dorsalis pedis was dopplerable but the left leg did not have dopplerable pu lses. A urgent left lower ext Doppler ultrasound revealed probable occlusion of the left SERVICE PLUMBER and SFA likely due to mechanical obstruction/thrombus from the malapposed Angio-Seal device. Vascular surgery was notified and the patient after being transferred to the ICU in critical condition will then be t aken back to the operating room for probable femoral exploration and treatment. Patient's family was updated of all findings/treatment. Conclusion 1. Cardio genic shock 2. Successful PCI of the left main and LAD with implantation of overlapping 4.5 mm drug-eluting stent s in the left main and a 3 mm drug-eluting stent in the LAD. 3. See separate report for aortoiliac intervention by vascular surgery Recommendations 1. Aspirin 81 mg daily 2. Plavix 75 mg daily 3. Will attempt to wean the ventilator over the next 24-48 hours after stabilization and adequate diu resis. 4. Await final recommendations from vascular surgery regarding anticoagulation after treatment of her left SERVICE PLUMBER occlusion. Signed by : Alyssia Solano, Electronically Approved : 06/29/2018 19:43:21
--- NOTE | 2018-06-29 20:20 | PDOC ---
Provider Note Provider Note Vascular consult dictated Imp: 1. acute arterial insufficiency left leg due to left common femoral artery occlusion following cath removal 2. status post bilateral proximal common iliac kissing stents and aortic stent placement, angioplasty with stent of the left main and LAD Rec: 1. exploration of the left common femoral artery with repair. JUAN HALE II, MD Jun 29, 2018 20:20
[2018-06-29] MEDS ORDERED: VANCOMYCIN 1 GM in IV NORMAL SALINE 250ML 250 ML IV ONE (20:45)
[2018-06-29] MEDS ORDERED: HYDROCORTISONE SOD SUCC/PF 100 MG/2 ML VIAL. ONE (20:50)
[2018-06-29] MEDS ORDERED: PROTAMINE 50 MG/5 ML VIAL. IV ONE (21:45)
[2018-06-29] MEDS ORDERED: SURGICEL FIBRILLAR 1X2 EACH. TP ONE (21:52)
--- NOTE | 2018-06-29 22:22 | NUR ---
Per Dr. Stewart--hold evening dose of SQ Heparin.
--- NOTE | 2018-06-29 22:39 | PDOC4 ---
OPERATIVE NOTE: Op note dictated Dx: arterial insufficiency left leg due to occlusion of the common femoral artery post cath Extensive placque involving the distal external iliac, common and superficial femoral arteries Op: 1. left distal external iliac, common femoral, proximal superficial femoral artery endarterectomy with bovine patch angioplasty Surg: Pat GOT EBL: 400 cc to ICU in stable cond; doppler flow heard over both PT and DP arteries. JUAN HALE II, MD Jun 29, 2018 22:39
--- NOTE | 2018-06-29 22:59 | OP ---
DATE OF SURGERY: 06/29/2018 PREOPERATIVE DIAGNOSES: Occlusion of the left common femoral artery following catheterization procedure with limb threatening ischemia of the left leg. POSTOPERATIVE DIAGNOSES: Occlusion of the left common femoral artery following catheterization procedure with limb threatening ischemia of the left leg. OPERATION PERFORMED: Left common femoral, external iliac, superficial femoral artery endarterectomy with bovine patch angioplasty. SURGEON: Juan Stewart M.D. MOLD CARRIER: Cherry Saleh. ANESTHESIA: General. INDICATIONS: This is a 73-year-old female who underwent peripheral vascular and cardiac interventions today requiring access via both common femoral arteries. Following removal of the left common femoral access catheter and a closure device, the patient lost flow in the left leg. This was documented by ultrasound. She is a candidate for operative exploration and repair. OPERATIVE FINDINGS: The patient had severe arterial occlusive disease of the common femoral artery, distal external iliac artery and proximal superficial femoral arteries. This required extensive endarterectomy of the distal external iliac above the inguinal ligament, the common femoral artery extending down to the superficial femoral artery at least 1 inch. A bovine patch angioplasty was used for closure. The distal shelf was tacked posteriorly on the superficial femoral artery. Following the procedure, the patient had excellent Doppler flow in the foot. DESCRIPTION OF PROCEDURE: The patient was placed in the supine position, already intubated. The left groin was prepped and draped and a Avial catheter was already in place. The patient received 1 g of IV vancomycin. A timeout was called. An incision was made over the arterial puncture and extended through the subcutaneous fat down to the inguinal ligament, which was incised. There was the Angio-Seal device that was located and tracked down to the common femoral artery. The common femoral artery, distal external iliac artery, profunda femoris artery and proximal superficial femoral artery were all dissected and encircled with vessel loops. The superficial femoral artery was dissected for approximately 1 inch. This required division of the inguinal ligament for proximal exposure of the external iliac artery. The vessel contained a soft spot and a pulse at this location proximally. The patient was re-bolused with 5000 units of heparin. An arteriotomy was made through the arterial puncture site and extended proximally and distally. An endarterectomy then was performed with a [place] dissector of the common femoral, extending up and beyond the origin of the external iliac artery beyond the inguinal ligament. This was done with a [place] dissector and a blunt clamp. The plaque was then removed from this location. The plaque extended down onto the superficial femoral artery for approximately an inch. There it tapered and the vessel became soft. The shelf that was left was tacked with 6-0 Prolene. There was no extensive plaque extending into the profunda femoris artery. There was good backbleeding from the profunda femoris artery. Following removal of all loose strands, a bovine patch was sutured into place using HS-7 Prolene, 2-suture technique. Prior to completing the patch closure, the vessels were flushed appropriately and flow restored. A 20 mg of protamine was then given and pressure was held as there was a fair amount of suture hole bleeding. Fibrillar was then placed around the wound and again pressure was held for hemostasis. A fully perforated Horacio-Khalil drain was placed within the wound space and brought out through a separate small stab incision. The wound was then closed in 3 layers with 2-0 and 3-0 Vicryl and the skin with 4-0 nylon. A compression dressing was applied. The patient had Doppler flow over the dorsal pedal and posterior tibial arteries, which were marked. The patient tolerated the procedure well and was taken to the Intensive Care Unit in stable, but critical condition. ESTIMATED BLOOD LOSS: 400 mL. DRAINS: Horacio-Khalil to bulb suction. SPECIMEN: Atherosclerotic plaque of the external iliac, common femoral and proximal superficial femoral arteries. JUAN STEWART MD DR: SINGH/rich JOB#: [id number] / [id number]
[2018-06-29] MEDS ORDERED: IV NORMAL SALINE 500ML BAG 500 ML IV ONE (23:00)
[2018-06-29 23:05] LABS: BASO % 0 % (0-3); EOS # 0.1 x10^3/uL (0.0-0.7); EOS % 1 % (0-3); HEMATOCRIT 32.8 % (36.0-47.0); HEMOGLOBIN 10.8 g/dL (12.0-15.5); LYMPH # 0.3 x10^3/uL (1.0-4.8); LYMPH % 5 % (24-48); MEAN CORPUSCULAR HEMOGLOBIN 29 pg (25-35); MEAN CORPUSCULAR HGB CONC 33 g/dL (31-37); MEAN CORPUSCULAR VOLUME 88 fL (79-100); MONO # 0.4 x10^3/uL (0.0-1.1); MONO % 6 % (0-9); NEUT % 88 % (31-73); PLATELET COUNT 210 x10^3/uL (140-400); RED BLOOD COUNT 3.72 x10^6/uL (3.50-5.40); RED CELL DISTRIBUTION WIDTH 17.7 % (11.5-14.5); WHITE BLOOD COUNT 6.8 x10^3/uL (4.0-11.0)
--- NOTE | 2018-06-29 23:39 | RAD ---
Chest AP portable at 2314: Reason for examination: Endotracheal tube and orogastric tube placement. Comparison is made to previous study dated 06/24/2018. Endotracheal tube is present with the tip below the thoracic inlet approximately 4 cm above the barron. Orogastric tube is present with the tip and side port distally in the stomach. The heart size is enlarged. Mediastinum is unremarkable. Lung harvey show increasing bilateral pleural effusions, right greater than left and some mild hazy density at the right lung base which may reflect some atelectasis or infiltrate. No pneumothorax is seen. No acute bony abnormalities are present. IMPRESSION: Endotracheal tube and orogastric tube appear to be in satisfactory position. Cardiomegaly. Increasing bilateral pleural effusions, right greater than left. Possible mild infiltrate or atelectasis in the right lower lobe. Electronically signed by: Alecia Aceves MD (06/29/2018 11:36 PM) [facility]
[2018-06-29] MEDS ORDERED: NOREPINEPHRIN 8MG/250ML PREMIX 250 ML IV PRN (23:45)
[2018-06-29] MEDS: LATANOPROST 0.005% OPHTH SOLUTION 2.5ML BOTTLE. OU SCH (23:47)
[2018-06-29] MEDS: ATORVASTATIN CALCIUM 40 MG TABLET. PO SCH (23:47)
[2018-06-29] MEDS: CHLORHEXIDINE 0.12% 15 ML MOUTHWASH. MM SCH (23:47)
[2018-06-29] MEDS: INSULIN GLARGINE 300 UNITS/3 ML INSULN.PEN. SQ SCH (23:48)
[2018-06-30] VITALS (38 sets, daily range): BP systolic 58–125; BP diastolic 35–68
[2018-06-30] MEDS ORDERED: IV NORMAL SALINE 500ML BAG 500 ML IV ONE
[2018-06-30] MEDS: IPRATRPIUM/ALBUTEROL 0.5/2.5MG 3 ML NEBU. NEB SCH ×5 (02:40→19:58)
[2018-06-30] MEDS: MIDAZOLAM 100mg/100ml NS BAG 100 ML IV PRN ×2 (03:49→12:04)
[2018-06-30 06:20] LABS: BASO % 0 % (0-3); EOS % 0 % (0-3); HEMATOCRIT 34.6 % (36.0-47.0); HEMOGLOBIN 11.5 g/dL (12.0-15.5); LYMPH # 0.4 x10^3/uL (1.0-4.8); LYMPH % 5 % (24-48); MEAN CORPUSCULAR HEMOGLOBIN 29 pg (25-35); MEAN CORPUSCULAR HGB CONC 33 g/dL (31-37); MEAN CORPUSCULAR VOLUME 87 fL (79-100); MONO # 0.4 x10^3/uL (0.0-1.1); MONO % 5 % (0-9); NEUT # 7.5 x10^3uL (1.8-7.7); NEUT % 91 % (31-73); PLATELET COUNT 250 x10^3/uL (140-400); RED BLOOD COUNT 3.96 x10^6/uL (3.50-5.40); RED CELL DISTRIBUTION WIDTH 17.6 % (11.5-14.5); WHITE BLOOD COUNT 8.2 x10^3/uL (4.0-11.0)
[2018-06-30] MEDS: methylPREDNISolone SOD SUCC PF 40 MG/ML VIAL. IV SCH ×3 (06:23→21:44)
[2018-06-30 06:27] LABS: CALCIUM 8.1 mg/dL (8.5-10.1); CREATININE 0.8 mg/dL (0.6-1.0); GFR 70.5
[2018-06-30] MEDS: ASPIRIN ENTERIC COATED 81 MG TABLET.DR. PO SCH (08:00)
[2018-06-30] MEDS: INSULIN LISPRO 300 UNITS/3 ML INSULN.PEN. SQ SCH ×3 (08:00→16:40)
--- NOTE | 2018-06-30 08:28 | RAD ---
Portable chest, 06/30/2018: HISTORY: Intubation Comparison is made to yesterday's study. The tip of the ET tube lies well above the barron. An NG tube extends into the stomach. The heart is enlarged and unchanged. The pulmonary vascularity remains prominent with loss of vascular margination suggesting mild pulmonary edema. There is right-sided pleural fluid with mild underlying infiltrate in the right lower chest. There is a moderate left basilar opacity compatible with atelectasis/consolidation and probable pleural fluid. These findings are unchanged since yesterday's study. No new abnormality is detected. IMPRESSION: 1. Stable tube positions. 2. Unchanged pulmonary infiltrates and pleural effusions. Electronically signed by: Johnathan Sandoval MD (06/30/2018 8:24 AM) [facility]
[2018-06-30] MEDS: LEVOTHYROXINE 88 MCG TABLET PO SCH (08:59)
[2018-06-30] MEDS: LISINOPRIL 5 MG TABLET. PO SCH (09:00)
[2018-06-30] MEDS: CLOPIDOGREL BISULFATE 75 MG TABLET PO SCH (09:00)
[2018-06-30] MEDS: FUROSEMIDE 40 MG/4 ML VIAL. IV SCH ×2 (09:00→13:38)
[2018-06-30] MEDS: CHLORHEXIDINE 0.12% 15 ML MOUTHWASH. MM SCH ×2 (09:00→20:30)
[2018-06-30] MEDS: LACTOBACILLUS RHAMNOSUS GG 1 CAPSULE. PO SCH ×2 (09:00→20:30)
[2018-06-30] MEDS: HEPARIN for SUB-Q USE 5,000 UNIT/ML VIAL. SQ SCH ×2 (09:00→20:34)
[2018-06-30] MEDS: POTASSIUM CHLORIDE 20 MEQ TABLET.ER. PO SCH (09:00)
[2018-06-30] MEDS: SPIRONOLACTONE 25 MG TABLET PO SCH (09:00)
--- NOTE | 2018-06-30 09:32 | PDOC ---
PROGRESS NOTES Chief Complaint Chief Complaint Triple vessel Disease by [place] 06/22/18 Severe ischemic CM with EF 30% and severe left main dz Severe PAD with 80% diffuse infrarenal stenosis, 95% stenosis at aortic bifurcation. Acute on chronic CHF AECOPD/pulmonary HTN LE edema more to RLE with small superficial right posterior ulcer. PAD, poor pulses - OP arteriogram Hypothyroidism TSH 5 with T4 at goal on synthroid constipated - bowel regimen Hypokalemia . corrected Morbid obesity with likely GÓMEZ Severe onychomycoses DM2 - A1c 7.9 History of Present Illness History of Present Illness POD 1 S/p PCI of LAD, aortoiliac interventions and infrarenal aorta DBX angioplasty/stent today by [facility] sx and cards. Had to return to OR for pulselessness in RLE last night, she has recovered well, still intubated, sheath with a-line still in place. Still intubated, no vent abnormalities Plan: CVC for pressors - levophed ordered for hypotension Monitor UOP Vent per pulm Vitals Vitals Vital Signs Date Time Temp Pulse Resp B/P (MAP) Pulse Ox O2 Delivery O2 Flow Rate FiO2 06/30/18 08:25 96 Ventilator 06/30/18 06:00 76 14 105/63 (77) 06/30/18 04:00 97.7 97.7 06/29/18 10:15 4 Physical Exam General: No acute distress, Other (Sedated, intubated) Heart: Regular rate, Normal S1, Normal S2 Lungs: Wheezing Abdomen: Normal bowel sounds, Soft Extremities: Other (edema) Skin: Other Labs LABS Laboratory Tests Test 06/29/18 14:45 06/29/18 18:29 06/29/18 19:10 06/29/18 23:00 White Blood Count 7.9 x10^3/uL (4.0-11.0) 6.8 x10^3/uL (4.0-11.0) Red Blood Count 4.12 x10^6/uL (3.50-5.40) 3.72 x10^6/uL (3.50-5.40) Hemoglobin 11.9 g/dL (12.0-15.5) 10.8 g/dL (12.0-15.5) Hematocrit 36.1 % (36.0-47.0) 32.8 % (36.0-47.0) Mean Corpuscular Volume 88 fL (79-100) 88 fL (79-100) Mean Corpuscular Hemoglobin 29 pg (25-35) 29 pg (25-35) Mean Corpuscular Hemoglobin Concent 33 g/dL (31-37) 33 g/dL (31-37) Red Cell Distribution Width 17.6 % (11.5-14.5) 17.7 % (11.5-14.5) Platelet Count 299 x10^3/uL (140-400) 210 x10^3/uL (140-400) Neutrophils (%) (Auto) 90 % (31-73) 88 % (31-73) Lymphocytes (%) (Auto) 5 % (24-48) 5 % (24-48) Monocytes (%) (Auto) 6 % (0-9) 6 % (0-9) Eosinophils (%) (Auto) 0 % (0-3) 1 % (0-3) Basophils (%) (Auto) 0 % (0-3) 0 % (0-3) Neutrophils # (Auto) 7.1 x10^3uL (1.8-7.7) 6.0 x10^3uL (1.8-7.7) Lymphocytes # (Auto) 0.4 x10^3/uL (1.0-4.8) 0.3 x10^3/uL (1.0-4.8) Monocytes # (Auto) 0.4 x10^3/uL (0.0-1.1) 0.4 x10^3/uL (0.0-1.1) Eosinophils # (Auto) 0.0 x10^3/uL (0.0-0.7) 0.1 x10^3/uL (0.0-0.7) Basophils # (Auto) 0.0 x10^3/uL (0.0-0.2) 0.0 x10^3/uL (0.0-0.2) Glucose (Fingerstick) 186 mg/dL (70-99) O2 Saturation 92 % (92-99) Arterial Blood pH 7.52 (7.35-7.45) Arterial Blood pCO2 at Patient Temp 34 mmHg (35-46) Arterial Blood pO2 at Patient Temp 63 mmHg (65-108) Arterial Blood HCO3 27 mmol/L (21-28) Arterial Blood Base Excess 4 mmol/L (-3-3) Oxyhemoglobin 91.1 % Methemoglobin 0.3 % (0.0-1.9) Carbon Monoxide, Quantitative 0.3 % (0.0-1.9) FiO2 40 Test 06/29/18 23:43 06/30/18 05:30 Glucose (Fingerstick) 185 mg/dL (70-99) White Blood Count 8.2 x10^3/uL (4.0-11.0) Red Blood Count 3.96 x10^6/uL (3.50-5.40) Hemoglobin 11.5 g/dL (12.0-15.5) Hematocrit 34.6 % (36.0-47.0) Mean Corpuscular Volume 87 fL (79-100) Mean Corpuscular Hemoglobin 29 pg (25-35) Mean Corpuscular Hemoglobin Concent 33 g/dL (31-37) Red Cell Distribution Width 17.6 % (11.5-14.5) Platelet Count 250 x10^3/uL (140-400) Neutrophils (%) (Auto) 91 % (31-73) Lymphocytes (%) (Auto) 5 % (24-48) Monocytes (%) (Auto) 5 % (0-9) Eosinophils (%) (Auto) 0 % (0-3) Basophils (%) (Auto) 0 % (0-3) Neutrophils # (Auto) 7.5 x10^3uL (1.8-7.7) Lymphocytes # (Auto) 0.4 x10^3/uL (1.0-4.8) Monocytes # (Auto) 0.4 x10^3/uL (0.0-1.1) Eosinophils # (Auto) 0.0 x10^3/uL (0.0-0.7) Basophils # (Auto) 0.0 x10^3/uL (0.0-0.2) Sodium Level 125 mmol/L (136-145) Potassium Level 4.0 mmol/L (3.5-5.1) Chloride Level 89 mmol/L (98-107) Carbon Dioxide Level 28 mmol/L (21-32) Anion Gap 8 (6-14) Blood Urea Nitrogen 14 mg/dL (7-20) Creatinine 0.8 mg/dL (0.6-1.0) Estimated GFR (Cockcroft-Gault) 70.5 Glucose Level 195 mg/dL (70-99) Calcium Level 8.1 mg/dL (8.5-10.1) Assessment and Plan Assessmemt and Plan Problems Medical Problems: (1) Congestive heart failure Status: Acute Comment Review of Relevant I have reviewed the following items rosangela (where applicable) has been applied. Labs Laboratory Tests Test 06/28/18 12:03 06/28/18 16:46 06/28/18 20:47 06/29/18 04:00 Glucose (Fingerstick) 227 mg/dL (70-99) 179 mg/dL (70-99) 197 mg/dL (70-99) White Blood Count 5.7 x10^3/uL (4.0-11.0) Red Blood Count 4.39 x10^6/uL (3.50-5.40) Hemoglobin 12.7 g/dL (12.0-15.5) Hematocrit 38.6 % (36.0-47.0) Mean Corpuscular Volume 88 fL (79-100) Mean Corpuscular Hemoglobin 29 pg (25-35) Mean Corpuscular Hemoglobin Concent 33 g/dL (31-37) Red Cell Distribution Width 17.9 % (11.5-14.5) Platelet Count 244 x10^3/uL (140-400) Neutrophils (%) (Auto) 89 % (31-73) Lymphocytes (%) (Auto) 8 % (24-48) Monocytes (%) (Auto) 3 % (0-9) Eosinophils (%) (Auto) 0 % (0-3) Basophils (%) (Auto) 0 % (0-3) Neutrophils # (Auto) 5.0 x10^3uL (1.8-7.7) Lymphocytes # (Auto) 0.4 x10^3/uL (1.0-4.8) Monocytes # (Auto) 0.2 x10^3/uL (0.0-1.1) Eosinophils # (Auto) 0.0 x10^3/uL (0.0-0.7) Basophils # (Auto) 0.0 x10^3/uL (0.0-0.2) Sodium Level 125 mmol/L (136-145) Potassium Level 4.6 mmol/L (3.5-5.1) Chloride Level 86 mmol/L (98-107) Carbon Dioxide Level 30 mmol/L (21-32) Anion Gap 9 (6-14) Blood Urea Nitrogen 13 mg/dL (7-20) Creatinine 1.0 mg/dL (0.6-1.0) Estimated GFR (Cockcroft-Gault) 54.5 Glucose Level 203 mg/dL (70-99) Calcium Level 9.4 mg/dL (8.5-10.1) Test 06/29/18 07:21 06/29/18 14:45 06/29/18 18:29 06/29/18 19:10 Glucose (Fingerstick) 183 mg/dL (70-99) 186 mg/dL (70-99) White Blood Count 7.9 x10^3/uL (4.0-11.0) Red Blood Count 4.12 x10^6/uL (3.50-5.40) Hemoglobin 11.9 g/dL (12.0-15.5) Hematocrit 36.1 % (36.0-47.0) Mean Corpuscular Volume 88 fL (79-100) Mean Corpuscular Hemoglobin 29 pg (25-35) Mean Corpuscular Hemoglobin Concent 33 g/dL (31-37) Red Cell Distribution Width 17.6 % (11.5-14.5) Platelet Count 299 x10^3/uL (140-400) Neutrophils (%) (Auto) 90 % (31-73) Lymphocytes (%) (Auto) 5 % (24-48) Monocytes (%) (Auto) 6 % (0-9) Eosinophils (%) (Auto) 0 % (0-3) Basophils (%) (Auto) 0 % (0-3) Neutrophils # (Auto) 7.1 x10^3uL (1.8-7.7) Lymphocytes # (Auto) 0.4 x10^3/uL (1.0-4.8) Monocytes # (Auto) 0.4 x10^3/uL (0.0-1.1) Eosinophils # (Auto) 0.0 x10^3/uL (0.0-0.7) Basophils # (Auto) 0.0 x10^3/uL (0.0-0.2) O2 Saturation 92 % (92-99) Arterial Blood pH 7.52 (7.35-7.45) Arterial Blood pCO2 at Patient Temp 34 mmHg (35-46) Arterial Blood pO2 at Patient Temp 63 mmHg (65-108) Arterial Blood HCO3 27 mmol/L (21-28) Arterial Blood Base Excess 4 mmol/L (-3-3) Oxyhemoglobin 91.1 % Methemoglobin 0.3 % (0.0-1.9) Carbon Monoxide, Quantitative 0.3 % (0.0-1.9) FiO2 40 Test 06/29/18 23:00 06/29/18 23:43 06/30/18 05:30 White Blood Count 6.8 x10^3/uL (4.0-11.0) 8.2 x10^3/uL (4.0-11.0) Red Blood Count 3.72 x10^6/uL (3.50-5.40) 3.96 x10^6/uL (3.50-5.40) Hemoglobin 10.8 g/dL (12.0-15.5) 11.5 g/dL (12.0-15.5) Hematocrit 32.8 % (36.0-47.0) 34.6 % (36.0-47.0) Mean Corpuscular Volume 88 fL (79-100) 87 fL (79-100) Mean Corpuscular Hemoglobin 29 pg (25-35) 29 pg (25-35) Mean Corpuscular Hemoglobin Concent 33 g/dL (31-37) 33 g/dL (31-37) Red Cell Distribution Width 17.7 % (11.5-14.5) 17.6 % (11.5-14.5) Platelet Count 210 x10^3/uL (140-400) 250 x10^3/uL (140-400) Neutrophils (%) (Auto) 88 % (31-73) 91 % (31-73) Lymphocytes (%) (Auto) 5 % (24-48) 5 % (24-48) Monocytes (%) (Auto) 6 % (0-9) 5 % (0-9) Eosinophils (%) (Auto) 1 % (0-3) 0 % (0-3) Basophils (%) (Auto) 0 % (0-3) 0 % (0-3) Neutrophils # (Auto) 6.0 x10^3uL (1.8-7.7) 7.5 x10^3uL (1.8-7.7) Lymphocytes # (Auto) 0.3 x10^3/uL (1.0-4.8) 0.4 x10^3/uL (1.0-4.8) Monocytes # (Auto) 0.4 x10^3/uL (0.0-1.1) 0.4 x10^3/uL (0.0-1.1) Eosinophils # (Auto) 0.1 x10^3/uL (0.0-0.7) 0.0 x10^3/uL (0.0-0.7) Basophils # (Auto) 0.0 x10^3/uL (0.0-0.2) 0.0 x10^3/uL (0.0-0.2) Glucose (Fingerstick) 185 mg/dL (70-99) Sodium Level 125 mmol/L (136-145) Potassium Level 4.0 mmol/L (3.5-5.1) Chloride Level 89 mmol/L (98-107) Carbon Dioxide Level 28 mmol/L (21-32) Anion Gap 8 (6-14) Blood Urea Nitrogen 14 mg/dL (7-20) Creatinine 0.8 mg/dL (0.6-1.0) Estimated GFR (Cockcroft-Gault) 70.5 Glucose Level 195 mg/dL (70-99) Calcium Level 8.1 mg/dL (8.5-10.1) Laboratory Tests Test 06/29/18 14:45 06/29/18 18:29 06/29/18 19:10 06/29/18 23:00 White Blood Count 7.9 x10^3/uL (4.0-11.0) 6.8 x10^3/uL (4.0-11.0) Red Blood Count 4.12 x10^6/uL (3.50-5.40) 3.72 x10^6/uL (3.50-5.40) Hemoglobin 11.9 g/dL (12.0-15.5) 10.8 g/dL (12.0-15.5) Hematocrit 36.1 % (36.0-47.0) 32.8 % (36.0-47.0) Mean Corpuscular Volume 88 fL (79-100) 88 fL (79-100) Mean Corpuscular Hemoglobin 29 pg (25-35) 29 pg (25-35) Mean Corpuscular Hemoglobin Concent 33 g/dL (31-37) 33 g/dL (31-37) Red Cell Distribution Width 17.6 % (11.5-14.5) 17.7 % (11.5-14.5) Platelet Count 299 x10^3/uL (140-400) 210 x10^3/uL (140-400) Neutrophils (%) (Auto) 90 % (31-73) 88 % (31-73) Lymphocytes (%) (Auto) 5 % (24-48) 5 % (24-48) Monocytes (%) (Auto) 6 % (0-9) 6 % (0-9) Eosinophils (%) (Auto) 0 % (0-3) 1 % (0-3) Basophils (%) (Auto) 0 % (0-3) 0 % (0-3) Neutrophils # (Auto) 7.1 x10^3uL (1.8-7.7) 6.0 x10^3uL (1.8-7.7) Lymphocytes # (Auto) 0.4 x10^3/uL (1.0-4.8) 0.3 x10^3/uL (1.0-4.8) Monocytes # (Auto) 0.4 x10^3/uL (0.0-1.1) 0.4 x10^3/uL (0.0-1.1) Eosinophils # (Auto) 0.0 x10^3/uL (0.0-0.7) 0.1 x10^3/uL (0.0-0.7) Basophils # (Auto) 0.0 x10^3/uL (0.0-0.2) 0.0 x10^3/uL (0.0-0.2) Glucose (Fingerstick) 186 mg/dL (70-99) O2 Saturation 92 % (92-99) Arterial Blood pH 7.52 (7.35-7.45) Arterial Blood pCO2 at Patient Temp 34 mmHg (35-46) Arterial Blood pO2 at Patient Temp 63 mmHg (65-108) Arterial Blood HCO3 27 mmol/L (21-28) Arterial Blood Base Excess 4 mmol/L (-3-3) Oxyhemoglobin 91.1 % Methemoglobin 0.3 % (0.0-1.9) Carbon Monoxide, Quantitative 0.3 % (0.0-1.9) FiO2 40 Test 06/29/18 23:43 06/30/18 05:30 Glucose (Fingerstick) 185 mg/dL (70-99) White Blood Count 8.2 x10^3/uL (4.0-11.0) Red Blood Count 3.96 x10^6/uL (3.50-5.40) Hemoglobin 11.5 g/dL (12.0-15.5) Hematocrit 34.6 % (36.0-47.0) Mean Corpuscular Volume 87 fL (79-100) Mean Corpuscular Hemoglobin 29 pg (25-35) Mean Corpuscular Hemoglobin Concent 33 g/dL (31-37) Red Cell Distribution Width 17.6 % (11.5-14.5) Platelet Count 250 x10^3/uL (140-400) Neutrophils (%) (Auto) 91 % (31-73) Lymphocytes (%) (Auto) 5 % (24-48) Monocytes (%) (Auto) 5 % (0-9) Eosinophils (%) (Auto) 0 % (0-3) Basophils (%) (Auto) 0 % (0-3) Neutrophils # (Auto) 7.5 x10^3uL (1.8-7.7) Lymphocytes # (Auto) 0.4 x10^3/uL (1.0-4.8) Monocytes # (Auto) 0.4 x10^3/uL (0.0-1.1) Eosinophils # (Auto) 0.0 x10^3/uL (0.0-0.7) Basophils # (Auto) 0.0 x10^3/uL (0.0-0.2) Sodium Level 125 mmol/L (136-145) Potassium Level 4.0 mmol/L (3.5-5.1) Chloride Level 89 mmol/L (98-107) Carbon Dioxide Level 28 mmol/L (21-32) Anion Gap 8 (6-14) Blood Urea Nitrogen 14 mg/dL (7-20) Creatinine 0.8 mg/dL (0.6-1.0) Estimated GFR (Cockcroft-Gault) 70.5 Glucose Level 195 mg/dL (70-99) Calcium Level 8.1 mg/dL (8.5-10.1) Medications Current Medications Furosemide (Lasix) 40 mg 1X ONCE IVP Last administered on 06/18/18 14:59; Start 06/18/18 at 14:00; Stop 06/18/18 at 14:47; Status DC Aspirin (Children'S Aspirin) 324 mg 1X ONCE PO Last administered on 06/18/18 14:59; Start 06/18/18 at 14:00; Stop 06/18/18 at 14:47; Status DC Potassium Chloride (KCl Oral Soln) 40 meq 1X ONCE PO Last administered on 14:59; Start 06/18/18 at 15:00; Stop 06/18/18 at 15:01; Status DC Furosemide (Lasix) 40 mg DAILY IVP ; Start 06/19/18 at 09:00; Stop 06/19/18 at 09: 00; Status DC Furosemide (Lasix) 40 mg [id number] IVP ; Start 06/19/18 at 09:00; Stop 06/19/18 at 09: 00; Status DC Lisinopril (Prinivil) 2.5 mg DAILY PO Last administered on 06/29/18 09:48; Start 06/19/18 at 09:00 Furosemide (Lasix) 40 mg [id number] IV Last administered on 06/29/18 09:48; Start 06/18/18 at 16:00 Spironolactone (Aldactone) 25 mg DAILY PO Last administered on 06/28/18 11:59 ; Start 06/19/18 at 09:00 Heparin Sodium (Porcine) (Heparin Sodium) 5,000 unit Q12HR SQ Last administered on 06/26/18at 20:40; Start 06/18/18 at 16:00 Sodium Chloride (Normal Saline Flush) 3 ml QSHIFT PRN IV AFTER MEDS AND BLOOD DRAWS; Start 06/18/18 at 16:00 Ondansetron HCl (Zofran) 4 mg PRN Q4HRS PRN IV NAUSEA/VOMITING; Start 06/18/18 at 16:00 Acetaminophen (Tylenol) 650 mg PRN Q4HRS PRN PO TEMP OVER 100.4F OR MILD PAIN Last administered on 06/28/18 20:56; Start 06/18/18 at 16:00 Sodium Monofluorophosphate (Fleet Adult) [address] CONSTIPATION; Start 06/18/18 at 16:00 Diphenhydramine HCl (Benadryl) 25 mg PRN Q4HRS PRN IVP ITCHING Last administered on 06/28/18 20:56; Start 06/18/18 at 16:00 Docusate Sodium (Colace) 100 mg PRN BID PRN PO CONSTIPATION Last administered on 06/27/18 08:41; Start 06/18/18 at 16:00 Albuterol Sulfate (Ventolin Neb Soln) 2.5 mg PRN Q4HRS PRN NEB SHORTNESS OF BREATH; Start 06/18/18 at 16:00 Albuterol/ Ipratropium (Duoneb) 3 ml Q4HRS NEB Last administered on 06/30/18 08:25; Start 06/18/18 at 16:00 Aspirin (Ecotrin) 81 mg DAILY08 PO Last administered on 06/28/18 10:14; Start 06/19/18 at 08:00 Levothyroxine Sodium (Synthroid) 88 mcg DAILY08 PO Last administered on 10:14; Start 06/19/18 at 08:00 Latanoprost (Xalatan) 1 drop QHS OU Last administered on 06/29/18 23:47; Start 06/18/18 at 21:00 Potassium Chloride (KCl Oral Soln) 40 meq 1X ONCE PO Last administered on 13:43; Start 06/19/18 at 13:00; Stop 06/19/18 at 13:01; Status DC Insulin Glargine (Lantus) 5 units QHS SQ Last administered on 06/29/18at 23:48; Start 06/19/18 at 21:00 Insulin Human Lispro (HumaLOG) 0-5 UNITS TIDWMEALS SQ Last administered on 06/28at 17:37; Start 06/19/18 at 12:30 Dextrose (Dextrose 50%-Water Syringe) 12.5 gm PRN Q15MIN PRN IV SEE COMMENTS; Start 06/19/18 at 12:15 Clindamycin Phosphate 50 ml @ 100 mls/hr Q8HRS IV Last administered on at 14:17; Start 06/21/18 at 10:00; Stop 06/24/18 at 15:00; Status DC Lactobacillus Rhamnosus (Culturelle) 1 cap BID PO Last administered on at 23:47; Start 06/21/18 at 21:00 Milrinone Lactate/ Dextrose 100 ml @ 4.022 mls/ hr CONT PRN IV SEE I/O RECORD Last administered on 06/28/18at 20:55; Start 06/22/18 at 13:00 Iodixanol (Visipaque 320) 100 ml STK-MED ONCE .ROUTE ; Start 06/23/18 at 06:35; Stop 06/23/18 at 06:36; Status DC Lidocaine HCl (Lidocaine 1% 20ml Vial) 20 ml STK-MED ONCE .ROUTE ; Start at 06:35; Stop 06/23/18 at 06:36; Status DC Heparin Sodium/ Sodium Chloride 1,500 ml @ As Directed STK-MED ONCE .ROUTE ; Start 06/23/18 at 06:35; Stop 06/23/18 at 06:36; Status DC Iodixanol (Visipaque 320) 100 ml STK-MED ONCE .ROUTE ; Start 06/23/18 at 07:26; Stop 06/23/18 at 07:27; Status DC Midazolam HCl (Versed) 2 mg STK-MED ONCE .ROUTE ; Start 06/23/18 at 07:30; Stop 06/23/18 at 07:31; Status DC Fentanyl Citrate (Fentanyl 2ml Vial) 100 mcg STK-MED ONCE .ROUTE ; Start at 07:30; Stop 06/23/18 at 07:31; Status DC Verapamil HCl (Verapamil) 5 mg STK-MED ONCE .ROUTE ; Start 06/23/18 at 07:30; Stop 06/23/18 at 07:31; Status DC Heparin Sodium (Porcine) (Heparin Sodium) 10,000 unit STK-MED ONCE .ROUTE ; Start 06/23/18 at 07:30; Stop 06/23/18 at 07:31; Status DC Nitroglycerin (Nitroglycerin) 200 mcg STK-MED ONCE .ROUTE ; Start 06/23/18 at 07 :30; Stop 06/23/18 at 07:31; Status DC Nitroglycerin (Nitroglycerin) 200 mcg 1X ONCE IART Last administered on at 08:20; Start 06/23/18 at 08:15; Stop 06/23/18 at 08:18; Status DC Verapamil HCl (Verapamil) 2.5 mg 1X ONCE IART Last administered on 06/23/18at 08:22; Start 06/23/18 at 08:15; Stop 06/23/18 at 08:18; Status DC Heparin Sodium (Porcine) (Heparin Sodium) 2,500 unit 1X ONCE IART Last administered on 06/23/18 08:23; Start 06/23/18 at 08:15; Stop 06/23/18 at 08:18 ; Status DC Heparin Sodium/ Sodium Chloride (HEPARIN for ARTERIAL LINE FLUSH) 1,000 unit 1X ONCE IART Last administered on 06/23/18 08:20; Start 06/23/18 at 08:15; Stop 06/23/18 at 08:18; Status DC Heparin Sodium/ Sodium Chloride (HEPARIN for ARTERIAL LINE FLUSH) 1,000 unit 1X ONCE IART Last administered on 06/23/18 08:20; Start 06/23/18 at 08:15; Stop 06/23/18 at 08:18; Status DC Midazolam HCl (Versed) 1.5 mg 1X ONCE IV Last administered on 06/23/18at 08:21 ; Start 06/23/18 at 08:15; Stop 06/23/18 at 08:18; Status DC Fentanyl Citrate (Fentanyl 2ml Vial) 75 mcg 1X ONCE IV Last administered on 08:22; Start 06/23/18 at 08:15; Stop 06/23/18 at 08:18; Status DC Iodixanol (Visipaque 320) 99 ml 1X ONCE IART Last administered on 06/23/18at 08 :20; Start 06/23/18 at 08:15; Stop 06/23/18 at 08:18; Status DC Lidocaine HCl (Lidocaine 1% 20ml Vial) 1 ml 1X ONCE INJ Last administered on at 08:20; Start 06/23/18 at 08:15; Stop 06/23/18 at 08:18; Status DC Info (CONTRAST GIVEN -- Rx MONITORING) 1 each PRN DAILY PRN MC SEE COMMENTS; Start 06/23/18 at 08:30; Stop 06/25/18 at 08:29; Status DC Sodium Chloride 250 ml @ 250 mls/hr 1X ONCE IV Last administered on at 11:07; Start 06/23/18 at 11:15; Stop 06/23/18 at 12:14; Status DC Furosemide (Lasix) 40 mg 1X ONCE IVP Last administered on 06/23/18at 20:46; Start 06/23/18 at 20:15; Stop 06/23/18 at 20:19; Status DC Magnesium Sulfate 50 ml @ 25 mls/hr 1X ONCE IV Last administered on 06/24/18at 14:13; Start 06/24/18 at 12:30; Stop 06/24/18 at 14:29; Status DC Potassium Chloride (Klor-Con) 40 meq 1X ONCE PO Last administered on at 14:14; Start 06/24/18 at 12:30; Stop 06/24/18 at 12:31; Status DC Clindamycin HCl (Cleocin) 300 mg QID PO Last administered on 06/28/18at 20:56; Start 06/24/18 at 21:00; Stop 06/29/18 at 15:41; Status DC Potassium Chloride (Klor-Con) 40 meq DAILY PO Last administered on 06/28/18at 10 :16; Start 06/25/18 at 11:15 Magnesium Sulfate 50 ml @ 25 mls/hr 1X ONCE IV Last administered on 06/25/18at 12:07; Start 06/25/18 at 11:15; Stop 06/25/18 at 13:14; Status DC Potassium Chloride (Klor-Con) 40 meq 1X ONCE PO Last administered on at 08:50; Start 06/26/18 at 07:45; Stop 06/26/18 at 07:50; Status DC Clopidogrel Bisulfate (Plavix) 300 mg 1X ONCE PO Last administered on at 13:10; Start 06/26/18 at 11:00; Stop 06/26/18 at 11:06; Status DC Clopidogrel Bisulfate (Plavix) 75 mg DAILYWBKFT PO Last administered on at 11:58; Start 06/27/18 at 08:00 Methylprednisolone Sodium Succinate (SOLU-Medrol 40MG VIAL) 40 mg Q8HRS IV Last administered on 06/30/18at 06:23; Start 06/27/18 at 09:15 Atorvastatin Calcium (Lipitor) 40 mg QHS PO Last administered on 06/29/18at 23: 47; Start 06/28/18 at 21:00 Heparin Sodium (Porcine) 5000 unit/Sodium Chloride 505 ml @ 505 mls/hr 1X ONCE IRR ; Start 06/29/18 at 06:00; Stop 06/29/18 at 06:59; Status DC Cefazolin Sodium/ Dextrose 50 ml @ 100 mls/hr 1X PREOP PRN IV on hold OR; Start 06/29/18 at 06:00; Stop 06/29/18 at 11:19; Status DC Ondansetron HCl (Zofran) 4 mg PRN Q6HRS PRN IV NAUSEA/VOMITING; Start 06/29/18 at 07:00; Stop 06/30/18 at 06:59; Status DC Fentanyl Citrate (Fentanyl 2ml Vial) 25 mcg PRN Q5MIN PRN IV MILD PAIN; Start 06/29/18 at 07:00; Stop 06/30/18 at 06:59; Status DC Fentanyl Citrate (Fentanyl 2ml Vial) 50 mcg PRN Q5MIN PRN IV MODERATE TO SEVERE PAIN; Start 06/29/18 at 07:00; Stop 06/30/18 at 06:59; Status DC Morphine Sulfate (Morphine Sulfate) 1 mg PRN Q10MIN PRN IV SEVERE PAIN; Start 06/29/18 at 07:00; Stop 06/30/18 at 06:59; Status DC Ringer's Solution 1,000 ml @ 30 mls/hr Q24H IV Last administered on 06/29/18at 10:12; Start 06/29/18 at 07:00; Stop 06/29/18 at 18:59; Status DC Lidocaine HCl (Xylocaine-Mpf 1% 2ml Vial) 2 ml PRN 1X PRN ID PRIOR TO IV START ; Start 06/29/18 at 07:00; Stop 06/30/18 at 06:59; Status DC Hydromorphone HCl (Dilaudid) 0.5 mg PRN Q10MIN PRN IV SEV PAIN, Second choice; Start 06/29/18 at 07:00; Stop 06/30/18 at 06:59; Status DC Prochlorperazine Edisylate (Compazine) 5 mg PACU PRN PRN IV NAUSEA, MRX1; Start 06/29/18 at 07:00; Stop 06/30/18 at 06:59; Status DC Bupivacaine HCl/ Epinephrine Bitart (Sensorcain-Mpf Epi 0.5%-[id number]) 30 ml STK -MED ONCE .ROUTE ; Start 06/29/18 at 05:59; Stop 06/29/18 at 06:59; Status DC Gelatin (Gelfoam Size 12-7mm) 1 each STK-MED ONCE .ROUTE ; Start 06/29/18 at 05 :59; Stop 06/29/18 at 06:59; Status DC Iohexol (Omnipaque 300 Mg/ml) 100 ml STK-MED ONCE .ROUTE ; Start 06/29/18 at 05: 59; Stop 06/29/18 at 07:00; Status DC Bupivacaine HCl (Sensorcaine Mpf 0.25%) 30 ml STK-MED ONCE .ROUTE ; Start at 05:59; Stop 06/29/18 at 07:00; Status DC Papaverine HCl 60 mg STK-MED ONCE .ROUTE ; Start 06/29/18 at 06:00; Stop at 07:01; Status DC Thrombin 20,000 unit STK-MED ONCE TP ; Start 06/29/18 at 06:00; Stop 06/29/18 at 07:01; Status DC Sodium Chloride (SODIUM CHLORIDE 20ml) 20 ml STK-MED ONCE IJ ; Start 06/29/18 at 09:46; Stop 06/29/18 at 09:47; Status DC Famotidine (Pepcid Vial) 20 mg STK-MED ONCE .ROUTE ; Start 06/29/18 at 09:46; Stop 06/29/18 at 09:47; Status DC Ondansetron HCl (Zofran) 4 mg STK-MED ONCE .ROUTE ; Start 06/29/18 at 09:46; Stop 06/29/18 at 09:47; Status DC Dexamethasone Sodium Phosphate (Decadron) 20 mg STK-MED ONCE .ROUTE ; Start at 09:46; Stop 06/29/18 at 09:47; Status DC Lidocaine HCl (Lidocaine Pf 2% Vial) 5 ml STK-MED ONCE .ROUTE ; Start 06/29/18 at 09:46; Stop 06/29/18 at 09:47; Status DC Etomidate (Amidate) 20 mg STK-MED ONCE IV ; Start 06/29/18 at 09:46; Stop at 09:47; Status DC Phenylephrine HCl (PHENYLEPHRINE in 0.9% NACL PF) 1 mg STK-MED ONCE IV ; Start 06/29/18 at 09:46; Stop 06/29/18 at 09:47; Status DC Fentanyl Citrate (Fentanyl 2ml Vial) 100 mcg STK-MED ONCE .ROUTE ; Start at 09:47; Stop 06/29/18 at 09:48; Status DC Hydromorphone HCl (Dilaudid) 2 mg STK-MED ONCE .ROUTE ; Start 06/29/18 at 09:47 ; Stop 06/29/18 at 09:48; Status DC Glycopyrrolate (Robinul) 1 mg STK-MED ONCE .ROUTE ; Start 06/29/18 at 09:47; Stop 06/29/18 at 09:48; Status DC Rocuronium Johnson (Zemuron) 100 mg STK-MED ONCE .ROUTE ; Start 06/29/18 at 09: 47; Stop 06/29/18 at 09:48; Status DC Neostigmine Methylsulfate (Neostigmine Methylsulfate) 5 mg STK-MED ONCE .ROUTE ; Start 06/29/18 at 09:47; Stop 06/29/18 at 09:48; Status DC Albumin Human 0 ml @ As Directed STK-MED ONCE IV ; Start 06/29/18 at 09:48; Stop 06/29/18 at 09:49; Status DC Iodixanol (Visipaque 320) 100 ml STK-MED ONCE .ROUTE ; Start 06/29/18 at 10:11; Stop 06/29/18 at 10:12; Status DC Lidocaine HCl (Lidocaine 1% 20ml Vial) 20 ml STK-MED ONCE .ROUTE ; Start at 10:11; Stop 06/29/18 at 10:12; Status DC Iodixanol (Visipaque 320) 50 ml STK-MED ONCE .ROUTE ; Start 06/29/18 at 10:11; Stop 06/29/18 at 10:12; Status DC Heparin Sodium/ Sodium Chloride 1,000 ml @ As Directed STK-MED ONCE .ROUTE ; Start 06/29/18 at 10:11; Stop 06/29/18 at 10:12; Status DC Bupivacaine HCl (Sensorcaine Mpf 0.5%) 30 ml STK-MED ONCE .ROUTE Last administered on 06/29/18at 12:42; Start 06/29/18 at 09:59; Stop 06/29/18 at 10:59 ; Status DC Bacitracin (Bacitracin) 50,000 unit STK-MED ONCE IRR ; Start 06/29/18 at 10:00; Stop 06/29/18 at 11:00; Status DC Vancomycin HCl 250 ml @ 250 mls/hr 1X ONCE IV Last administered on 06/29/18at 11:15; Start 06/29/18 at 11:15; Stop 06/29/18 at 12:14; Status DC Heparin Sodium (Porcine) (Heparin Sodium) 10,000 unit STK-MED ONCE .ROUTE ; Start 06/29/18 at 11:49; Stop 06/29/18 at 11:50; Status DC Cellulose (Surgicel Fibrillar 1x2) 1 each STK-MED ONCE .ROUTE ; Start 06/29/18 at 11:50; Stop 06/29/18 at 11:51; Status DC Phenylephrine HCl (Justin-Synephrine Inj) 10 mg STK-MED ONCE .ROUTE ; Start at 11:57; Stop 06/29/18 at 11:58; Status DC Sevoflurane (Ultane) 90 ml STK-MED ONCE IH ; Start 06/29/18 at 12:07; Stop 06/29 at 12:08; Status DC Heparin Sodium/ Sodium Chloride 500 ml @ As Directed STK-MED ONCE .ROUTE ; Start 06/29/18 at 12:35; Stop 06/29/18 at 12:36; Status DC Iodixanol (Visipaque 320) 100 ml STK-MED ONCE .ROUTE ; Start 06/29/18 at 12:52; Stop 06/29/18 at 12:53; Status DC Iodixanol (Visipaque 320) 100 ml STK-MED ONCE .ROUTE ; Start 06/29/18 at 13:17; Stop 06/29/18 at 13:18; Status DC Lidocaine HCl (Lidocaine 1% 20ml Vial) 20 ml STK-MED ONCE .ROUTE ; Start at 13:17; Stop 06/29/18 at 13:18; Status DC Heparin Sodium/ Sodium Chloride 1,000 ml @ As Directed STK-MED ONCE .ROUTE ; Start 06/29/18 at 13:18; Stop 06/29/18 at 13:19; Status DC Heparin Sodium (Porcine) (Heparin Sodium) 10,000 unit STK-MED ONCE .ROUTE ; Start 06/29/18 at 13:19; Stop 06/29/18 at 13:20; Status DC Heparin Sodium/ Sodium Chloride (HEPARIN for ARTERIAL LINE FLUSH) 1,000 unit 1X ONCE IART Last administered on 06/29/18at 14:15; Start 06/29/18 at 14:15; Stop 06/29/18 at 14:16; Status DC Heparin Sodium/ Sodium Chloride (HEPARIN for ARTERIAL LINE FLUSH) 1,000 unit 1X ONCE IART Last administered on 06/29/18at 14:15; Start 06/29/18 at 14:15; Stop 06/29/18 at 14:16; Status DC Heparin Sodium (Porcine) (Heparin Sodium) 4,000 unit 1X ONCE IV Last administered on 06/29/18at 14:15; Start 06/29/18 at 14:15; Stop 06/29/18 at 14:16 ; Status DC Iodixanol (Visipaque 320) 100 ml 1X ONCE IART Last administered on 06/29/18at 14:30; Start 06/29/18 at 14:30; Stop 06/29/18 at 14:31; Status DC Heparin Sodium/ Sodium Chloride 500 ml @ As Directed STK-MED ONCE .ROUTE ; Start 06/29/18 at 14:35; Stop 06/29/18 at 14:36; Status DC Nitroglycerin (Nitroglycerin) 200 mcg 1X ONCE IART Last administered on at 15:30; Start 06/29/18 at 15:30; Stop 06/29/18 at 15:31; Status DC Iodixanol (Visipaque 320) 100 ml STK-MED ONCE .ROUTE ; Start 06/29/18 at 15:51; Stop 06/29/18 at 15:52; Status DC Iodixanol (Visipaque 320) 100 ml STK-MED ONCE .ROUTE ; Start 06/29/18 at 16:52; Stop 06/29/18 at 16:53; Status DC Aspirin (Aspirin) [address] Last administered on 06/29/18at 18:18; Start 06/29/18 at 17:30; Stop 06/29/18 at 17:31; Status DC Clopidogrel Bisulfate (Plavix) 300 mg 1X ONCE PO Last administered on at 18:18; Start 06/29/18 at 17:30; Stop 06/29/18 at 17:31; Status DC Fentanyl Citrate 30 ml @ 0 mls/hr CONT PRN IV SEE PROTOCOL Last administered on 06/30/18at 04:10; Start 06/29/18 at 17:30 Fentanyl Citrate (Fentanyl 2ml Vial) 25 mcg PRN Q1HR PRN IV SEE COMMENTS; Start 06/29/18 at 17:30 Fentanyl Citrate (Fentanyl 2ml Vial) 50 mcg PRN Q1HR PRN IV SEE COMMENTS; Start 06/29/18 at 17:30 Chlorhexidine Gluconate (Peridex) 15 ml BID MM Last administered on 06/29/18at 23:47; Start 06/29/18 at 21:00 Morphine Sulfate (Morphine Sulfate) 2 mg PRN Q1HR PRN IV SEE COMMENTS.; Start 06/29/18 at 17:30 Morphine Sulfate (Morphine Sulfate) 4 mg PRN Q1HR PRN IV SEE COMMENTS.; Start 06/29/18 at 17:30 Midazolam HCl 100 ml @ 0 mls/hr CONT PRN IV SEE PROTOCOL Last administered on at 03:49; Start 06/29/18 at 17:30 Vecuronium Johnson (Norcuron Bolus) 6 mg PRN Q2HRS PRN IV ANXIETY / AGITATION; Start 06/29/18 at 17:30 Heparin Sodium (Porcine) 5000 unit/Sodium Chloride 505 ml @ 505 mls/hr 1X ONCE IRR Last administered on 06/29/18at 20:34; Start 06/29/18 at 19:30; Stop at 20:30; Status DC Iohexol (Omnipaque 300 Mg/ml) 100 ml STK-MED ONCE .ROUTE ; Start 06/29/18 at 18: 16; Stop 06/29/18 at 19:17; Status DC Cellulose (Surgicel Fibrillar 1x2) 1 each STK-MED ONCE .ROUTE ; Start 06/29/18 at 19:17; Stop 06/29/18 at 19:18; Status DC Rocuronium Johnson (Zemuron) 50 mg STK-MED ONCE .ROUTE ; Start 06/29/18 at 19:42 ; Stop 06/29/18 at 19:43; Status DC Vancomycin HCl 1 gm/Sodium Chloride 250 ml @ 250 mls/hr 1X ONCE IV Last administered on 06/29/18at 20:34; Start 06/29/18 at 20:45; Stop 06/29/18 at 21:44 ; Status DC Vancomycin HCl 250 ml @ 250 mls/hr 1X ONCE IV ; Start 06/29/18 at 20:45; Stop 06/29/18 at 21:44; Status UNV Hydrocortisone Sodium Succinate (Solu-CORTEF) 100 mg STK-MED ONCE .ROUTE ; Start 06/29/18 at 20:50; Stop 06/29/18 at 20:51; Status DC Heparin Sodium (Porcine) (Heparin Sodium) 10,000 unit STK-MED ONCE .ROUTE ; Start 06/29/18 at 21:01; Stop 06/29/18 at 21:02; Status DC Phenylephrine HCl (PHENYLEPHRINE in 0.9% NACL PF) 1 mg STK-MED ONCE IV ; Start 06/29/18 at 21:35; Stop 06/29/18 at 21:36; Status DC Sevoflurane (Ultane) 90 ml STK-MED ONCE IH ; Start 06/29/18 at 21:36; Stop 06/29 at 21:37; Status DC Protamine Sulfate (Protamine) 50 mg STK-MED ONCE IV ; Start 06/29/18 at 21:45; Stop 06/29/18 at 21:46; Status DC Cellulose (Surgicel Fibrillar 1x2) 1 each STK-MED ONCE TP Last administered on 06/29/18at 21:52; Start 06/29/18 at 21:52; Stop 06/29/18 at 21:58; Status DC Sodium Chloride 500 ml @ 500 mls/hr 1X ONCE IV Last administered on at 23:47; Start 06/29/18 at 23:00; Stop 06/29/18 at 23:59; Status DC Sodium Chloride 500 ml @ 500 mls/hr 1X ONCE IV Last administered on at 00:27; Start 06/30/18 at 00:00; Stop 06/30/18 at 00:59; Status DC Norepinephrine Bitartrate 250 ml @ 1.875 mls/ hr CONT PRN IV SEE I/O RECORD Last administered on 06/30/18at 00:26; Start 06/29/18 at 23:45 Rocuronium Johnson (Zemuron) 50 mg STK-MED ONCE .ROUTE ; Start 06/29/18 at 12:00 ; Stop 06/30/18 at 08:09; Status DC Active Scripts Active Clindamycin Hcl 300 Mg Capsule 300 Mg PO QID 7 Days Lasix (Furosemide) 40 Mg Tablet 40 Mg PO BID 14 Days Aldactone (Spironolactone) 25 Mg Tablet 25 Mg PO DAILY MDD 1 Lisinopril 5 Mg Tablet 2.5 Mg PO DAILY MDD 1 Proair Hfa (Albuterol Sulfate) 8.5 Gm Hfa.aer.ad 2.5 Mg NEB PRN Q4HRS PRN MDD 1 Reported Aspir-Low (Aspirin) 81 Mg Tablet.dr 1 Tab PO DAILY Triamterene-Hctz 37.5-25 Mg Cp (Triamterene/Hydrochlorothiazid) 1 Each Capsule 1 Cap PO DAILY Synthroid (Levothyroxine Sodium) 88 Mcg Tablet 1 Tab PO DAILY Latanoprost 2.5 Ml Drops 1 Drop EACHEYE QHS Vitals/I & O Vital Sign - Last 24 Hours 06/29/18 06/29/18 06/29/18 06/29/18 09:48 10:15 18:00 18:00 Temp 97.2 97.2 Pulse 107 111 Resp 20 B/P (MAP) 113/78 106/72 Pulse Ox 94 100 O2 Delivery Nasal Cannula Mechanical Ventilator Ventilator O2 Flow Rate 4 06/29/18 06/29/18 06/29/18 06/29/18 18:00 18:15 18:17 18:30 Temp 98.5 98.5 Pulse 78 79 74 Resp 20 20 20 20 B/P (MAP) 146/88 (107) 120/68 (85) 116/66 (83) Pulse Ox 100 100 94 100 O2 Delivery Ventilator Ventilator Ventilator Ventilator 06/29/18 06/29/18 06/29/18 06/29/18 18:45 18:45 19:00 19:45 Temp 97.5 97.5 Pulse 78 71 Resp 20 20 20 B/P (MAP) 106/48 (67) 105/60 (75) Pulse Ox 96 96 92 O2 Delivery Ventilator Ventilator Ventilator 06/29/18 06/29/18 06/29/18 06/29/18 19:50 19:50 20:11 22:45 Pulse 79 68 Resp 14 B/P (MAP) 100/52 (68) Pulse Ox 92 94 O2 Delivery Mechanical Ventilator Ventilator Ventilator 06/29/18 06/29/18 06/29/18 06/29/18 23:00 23:00 23:15 23:30 Pulse 70 70 70 Resp 14 14 14 B/P (MAP) 82/50 (61) 94/54 (67) 92/54 (67) Pulse Ox 91 92 95 90 O2 Delivery Ventilator Ventilator Ventilator Ventilator 06/29/18 06/30/18 06/30/18 06/30/18 23:45 00:00 00:00 00:00 Temp 97.6 97.6 Pulse 70 70 70 Resp 14 14 B/P (MAP) 90/52 (65) 88/52 (64) 88/52 (64) Pulse Ox 93 93 O2 Delivery Ventilator Ventilator Mechanical Ventilator 06/30/18 06/30/18 06/30/18 06/30/18 00:30 01:00 01:30 02:00 Pulse 70 72 72 73 Resp 14 14 14 14 B/P (MAP) 92/54 (67) 114/64 (81) 118/60 (79) 111/65 (80) Pulse Ox 93 95 96 96 O2 Delivery Ventilator Ventilator Ventilator Ventilator 06/30/18 06/30/18 06/30/18 06/30/18 02:40 03:00 04:00 04:00 Temp 97.7 97.7 Pulse 74 74 74 Resp 14 14 B/P (MAP) 100/58 (72) 99/58 (72) 99/58 (72) Pulse Ox 96 96 95 O2 Delivery Ventilator Ventilator Ventilator 06/30/18 06/30/18 06/30/18 06/30/18 04:00 04:45 05:00 05:15 Pulse 74 74 74 Resp 14 B/P (MAP) 95/59 (71) 97/58 (71) 89/60 (70) Pulse Ox 96 O2 Delivery Mechanical Ventilator Ventilator 06/30/18 06/30/18 06/30/18 06/30/18 05:25 05:30 06:00 08:25 Pulse 76 76 Resp 14 B/P (MAP) 110/66 (81) 105/63 (77) Pulse Ox 96 95 96 O2 Delivery Ventilator Ventilator Ventilator Intake and Output 06/29/18 06/29/18 06/30/18 14:59 22:59 06:59 Intake Total 52 ml 1197 ml Output Total 1250 ml 540 ml Balance -1198 ml 657 ml JAN FLORES MD Jun 30, 2018 09:32
[2018-06-30] MEDS: ASPIRIN RECTAL 300 MG SUPP. PR SCH (10:00)
[2018-06-30 10:10] LABS: BASE EXCESS ABG 5 mmol/L (-3-3); HCO3 ABG 29 mmol/L (21-28); PCO2 ABG 40 mmHg (35-46); PO2 ABG 69 mmHg (65-108); SAT O2 ABG 93 % (92-99)
[2018-06-30 10:26] LABS: FIO2 ABG 40
--- NOTE | 2018-06-30 10:29 | CONS ---
DATE OF CONSULTATION: 06/29/2018 VASCULAR SURGERY CONSULTATION CLINICAL HISTORY: This is a 73-year-old female who underwent intervention today including bilateral kissing common iliac stents and an aortic stent by Dr. Perrin and then angioplasty of the left main and LAD by Dr. Solano. She had access in both femoral arteries. Following access sheath removal, she had absent flow in the left common femoral artery, for which I was consulted. PHYSICAL EXAMINATION: Upon examination, the patient is intubated and history is unable to be obtained. Arterial duplex scan shows no flow in the common femoral or proximal superficial femoral artery on the left. She has no audible flow in the left foot, which is threatened. She remains on heparin. IMPRESSION: Acute arterial occlusion of the left common femoral artery following closure device malfunction. PLAN: Proceed with operative exploration and repair of common femoral artery with possible endarterectomy and patch closure. There is no family for me to discuss this with. However, Dr. Solano did discuss the situation with the patient's son. JUAN HALE MD DR: SINGH/rich JOB#: [id number] / [id number]
--- NOTE | 2018-06-30 11:10 | CONS ---
DATE OF CONSULTATION: REFERRING PHYSICIAN: Dr. Edmondson. REASON FOR CONSULTATION: Respiratory failure, ventilator management, CHF, cardiomyopathy. HISTORY OF PRESENT ILLNESS: The patient is a 73-year-old female who has history of congestive heart failure, history of cardiomyopathy and history of chronic obstructive airway disease, who does not use oxygen. The patient has [id number] tobacco history. She was brought into the hospital with increasing shortness of breath. The patient was seen by Cardiology and a cardiac catheterization was performed and she had severely elevated left-sided filling pressures consistent with decompensated systolic and diastolic heart failure. Her LVEDP was 35. She had severe [place] 3-vessel coronary artery disease. She was considered high risk for CABG. The patient underwent interventional procedure by Cardiology on 06/29/2018. She had successful PCI of the left main and LAD with implantation of overlapping drug-eluting stents in the left main. The patient was also seen by Vascular Surgery because of the occlusion of the left common femoral artery following cardiac catheterization and limb threatening ischemia. She underwent left common femoral, external iliac and superficial femoral artery endarterectomy and bovine patch angioplasty. The patient was kept on the ventilator. I have been asked to manage the ventilator. Her ABGs on assist control mode showed a pH of 7.48, pCO2 of 40 and a pO2 of 69 on 40% FiO2. She is currently on 5 mcg of Levophed. She is also on milrinone. The patient's chest x-ray is consistent with CHF. PAST MEDICAL HISTORY: Significant for history of severe cardiomyopathy with EF of 25%, history of severe diastolic dysfunction, history of COPD, osteoarthritis and hypothyroidism. PAST SURGICAL HISTORY: Arthroscopy, and cataract removal. FAMILY HISTORY: Unable to obtain from the patient. SOCIAL HISTORY: A [id number] tobacco history. ALLERGIES: PENICILLIN. CURRENT MEDICATIONS: Reviewed, as listed in the MRAD. REVIEW OF SYSTEMS: Unable to obtain from the patient. PHYSICAL EXAMINATION: VITAL SIGNS: Reviewed. Blood pressure 105 on 5 mcg of Levophed. Pulse ox 96%. HEENT: Sclerae nonicteric. NECK: Supple. LUNGS: With diminished breath sounds. CARDIOVASCULAR: Regular rate. ABDOMEN: Soft. There is some left lower quadrant ecchymosis. EXTREMITIES: With cold left foot. She has some ecchymosis in the left foot as well. The right foot is warm. LABORATORY DATA: Reviewed. ABGs as discussed in my history of present illness. BUN and creatinine normal. INR 1.1. White cell count 8.2, hemoglobin 11.5, platelets are 250. IMPRESSION: 1. Acute hypoxic respiratory failure secondary to recent cardiac and vascular intervention and cardiogenic shock. 2. Status post cardiac catheterization with left main stent placement and successful Impella. 3. The patient with persistent bleeding from the left groin post angio seal. The patient lost pulses and had emergent vascular intervention. 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 Exploration of left common femoral artery with repair. 4. Underlying chronic obstructive pulmonary disease with [id number]-uzzl tobacco history. 5. Cardiogenic shock with congestive heart failure. 6. History of severe cardiomyopathy and severe diastolic dysfunction and secondary pulmonary hypertension. RECOMMENDATION: 1. Continue with present assist control mode for the next 24 hours. 2. Once she is more stable, then we will consider weaning off sedation and a CPAP trial. 3. Wean vasopressor per Cardiology. 4. Bronchodilators. 5. Follow Vascular's recommendation. 6. Follow Cardiology's recommendations. 7. Continue present steroids with gradual taper. 8. Monitor the left foot pulses closely. 9. Monitor hemoglobin. 10. Monitor sodium. 11. Discussed with RN and RT. We will follow along with you. Critical care time 37 minutes. EB DELA CRUZ MD DR: SANDEE/rich JOB#: [id number] / [id number]
--- NOTE | 2018-06-30 11:12 | RAD ---
CHEST AP ONLY Clinical Indication: CENTRAL LINE PLACEMENT Comparison: 06/30/2018 portable chest x-ray exam. Findings: Endotracheal tube terminates 2.2 cm from the barron. Right internal jugular catheter terminates at the superior cavoatrial junction level. Enteric tube is in place although it is not seen at its distal aspect. Heart size is mildly enlarged.. Pulmonary vasculature congestion noted.. Small bilateral pleural effusions greater on the right are present. Right pleural effusion tracks superiorly to the upper thoracic level.. Retrocardiac left basilar atelectasis or consolidation is suspected.. No definite pneumothorax. IMPRESSION: Right internal jugular catheter is in place on basis of frontal view provided Retrocardiac left basilar atelectasis or consolidation. Bilateral pleural effusions. Electronically signed by: Gautam Leyva MD (06/30/2018 11:09 AM) [id number]
[2018-06-30] MEDS: POTASSIUM CHLORIDE 20 MEQ/15 ML ORAL LIQUID. PEG SCH (12:05)
[2018-06-30] MEDS ORDERED: hydrALAZINE 20 MG/ML VIAL. IVP PRN (14:00)
--- NOTE | 2018-06-30 15:13 | PDOC ---
Provider Note Provider Note S: Pt seen by myself and Dr. Amos Pt underwent emergent left common femoral, SFA and external iliac endarterectomy with bovine pericardial patch angioplasty yesterday due to occlusion of left common femoral artery following cath procedure with limb threatening ischemia. Prior to heart cath procedure (angioplasty with stent to left main and LAD) she underwent bilateral common iliac kissing stents and aortic stent placement by Dr. Perrin. She is still intubated today per cardiology. O: Sedated on vent. On pressors Right leg with some erythema, foot warm, doppler signals present Left groin dressing clean, dry and intact. Lower leg with erythema anteriorly, appears like ecchymosis vs rash. Talked to Dr. Rodriguez, this is not new and was present prior to emergent endarterectomy and repair. Left foot cooler to touch, but doppler signals present. A/P: POD#1 of emergent left common femoral, SFA and external iliac endarterectomy with bovine pericardial patch angioplasty due to occlusion with limb threatening ischemia following Angioplasty with stent to left main and LAD, also underwent bilateral common iliac kissing stents and aortic stent placement yesterday. - Pt sedated on vent, on pressors. - Rooke boot and bear hugger to left leg. Discussed with RN. Left pedal doppler signals weaker than right, but present. Circulation in foot will continue to improve as weaned off pressors. - cont aspirin and plavix - Other post op care per cardiology GABRIELLE ORTIZ Jun 30, 2018 15:13
--- NOTE | 2018-06-30 18:27 | PDOC ---
CARDIOLOGY PROGRESS NOTE SUBJECTIVE: No acute events overnight. Patient is heavily sedated. No critical leg issues at this time. OBJECTIVE: Vital SIgns: VS: HR 80's, BP - 75/45, Pox -100%, Fio2 - 40%, PEEP 5. I & O -1529 ml total Objective: Sedated. Non-responsive Normal heart tones. Lungs with bilateral rhonchi Both legs are warm. Dopplerable pulses, R>L, palpable Right femoral pulse, dressing over left groin. CURRENT MEDICATIONS: Levo, milrinone, asa and plavix and spironolactone DIAGNOSTIC TESTING: Tele - no events. Labs reviewed. Hgb, cr, Na stable. ASSESSMENT: 1. Severe ischemic CMP s/p LM/LAD stents. 2. Severe PAD s/p aorto/iliac stents and LCFA femoral patch endart 3. Cardiogenic shock 4. Resp failure due to above. PLAN: 1. Wean sedation quickly. Wake patient this evening and plan for extubation tomorrow if able. 2. Continue plavix, asa through NG tube. 3. Continue lasix IV. 4. Check CVP 5. Patient is probably vasoplegic from sedation, wean levo as tolerated. Continue milrinone. ALYSSIA PASCUAL MD Jun 30, 2018 18:27
[2018-06-30] MEDS: MILRINONE 20MG/100ML PREMIX 100 ML IV PRN (19:02)
[2018-06-30] MEDS ORDERED: ALBUMIN HUMAN 25% 100 ML IV ONE (19:15)
[2018-06-30] MEDS ORDERED: PHENYLEPHRINE in 0.9% NACL PF 1 MG/10 ML SYRINGE. IV ONE (19:15)
[2018-06-30] MEDS: ATORVASTATIN CALCIUM 40 MG TABLET. PO SCH (20:30)
[2018-06-30] MEDS: LATANOPROST 0.005% OPHTH SOLUTION 2.5ML BOTTLE. OU SCH (20:31)
[2018-06-30] MEDS: INSULIN GLARGINE 300 UNITS/3 ML INSULN.PEN. SQ SCH (20:34)
[2018-07-01] VITALS (27 sets, daily range): BP systolic 78–131; BP diastolic 41–76
[2018-07-01] MEDS: IPRATRPIUM/ALBUTEROL 0.5/2.5MG 3 ML NEBU. NEB SCH ×7 (04:00→23:10)
[2018-07-01] MEDS: methylPREDNISolone SOD SUCC PF 40 MG/ML VIAL. IV SCH ×3 (05:55→21:32)
[2018-07-01 06:09] LABS: BASO % 0 % (0-3); EOS % 0 % (0-3); HEMATOCRIT 30.3 % (36.0-47.0); HEMOGLOBIN 10.2 g/dL (12.0-15.5); LYMPH # 0.2 x10^3/uL (1.0-4.8); LYMPH % 5 % (24-48); MEAN CORPUSCULAR HEMOGLOBIN 30 pg (25-35); MEAN CORPUSCULAR HGB CONC 34 g/dL (31-37); MEAN CORPUSCULAR VOLUME 88 fL (79-100); MONO # 0.3 x10^3/uL (0.0-1.1); MONO % 7 % (0-9); NEUT % 88 % (31-73); PLATELET COUNT 183 x10^3/uL (140-400); RED BLOOD COUNT 3.45 x10^6/uL (3.50-5.40); RED CELL DISTRIBUTION WIDTH 17.4 % (11.5-14.5); WHITE BLOOD COUNT 4.5 x10^3/uL (4.0-11.0)
[2018-07-01 06:24] LABS: GFR 54.5
[2018-07-01 07:20] LABS: BASE EXCESS ABG 4 mmol/L (-3-3); HCO3 ABG 28 mmol/L (21-28); PCO2 ABG 37 mmHg (35-46); PO2 ABG 64 mmHg (65-108); SAT O2 ABG 91 % (92-99)
--- NOTE | 2018-07-01 07:30 | RAD ---
Procedure: Ultrasound-guided placement of right internal jugular central venous catheter07/01/2018 7:26 AM Clinical Indication: Patient critically ill. On pressure support. Multiple IV meds. Discussion: The risks and benefits of the procedure were discussed the patient and/or their insurance claims representative. Informed consent was obtained. A timeout procedure was performed. All elements of maximal sterile barrier technique including the use of a cap, mask, sterile gown, sterile gloves, large sterile sheet, appropriate hand hygiene, and 2% chlorhexidine for cutaneous antisepsis (or acceptable alternative antiseptic per current guidelines) were followed for this procedure. The patient was prepped and draped in the usual sterile fashion. Ultrasound interrogation of the right neck revealed patency and compressibility of the right internal jugular vein. A 21-gauge micropuncture was then used to gain access to this vein under ultrasound guidance. A hard copy ultrasound image was recorded. A guidewire was advanced centrally. 5 Stateless sheath was placed. Over a wire following dilatation, a triple-lumen central venous catheter was advanced centrally. Catheter was found to flush and aspirate normally. Follow-up chest radiograph demonstrates tip at the cavoatrial junction. Catheter secured in place and a sterile dressing was applied. No immediate complications were identified. Impression: Successful ultrasound-guided placement of right internal jugular triple-lumen central venous catheter
--- NOTE | 2018-07-01 07:59 | RAD ---
Portable chest, 07/01/2018: HISTORY: Respiratory failure, congestive heart failure Comparison is made to yesterday's exam. The ET tube tip lies well above the barron. An NG tube extends into the stomach. A right jugular central venous catheter extends to the level the atriocaval junction. The heart is enlarged. There is ongoing vascular congestion with perihilar-perivascular pulmonary edema. Bibasilar opacities are unchanged compatible with a combination of pleural fluid and infiltrate due to congestive heart failure. There is no evidence of pneumothorax. No new abnormality is detected. IMPRESSION: No significant change since yesterday's study. Electronically signed by: Johnathan Sandoval MD (07/01/2018 7:57 AM) [facility]
[2018-07-01] MEDS: INSULIN LISPRO 300 UNITS/3 ML INSULN.PEN. SQ SCH ×3 (08:00→17:00)
[2018-07-01] MEDS: ASPIRIN ENTERIC COATED 81 MG TABLET.DR. PO SCH (08:00)
[2018-07-01] MEDS: CLOPIDOGREL BISULFATE 75 MG TABLET PO SCH (08:17)
[2018-07-01] MEDS: LEVOTHYROXINE 88 MCG TABLET PO SCH (08:17)
[2018-07-01] MEDS: FUROSEMIDE 40 MG/4 ML VIAL. IV SCH ×3 (08:18→16:09)
[2018-07-01] MEDS: POTASSIUM CHLORIDE 20 MEQ/15 ML ORAL LIQUID. PEG SCH (08:18)
[2018-07-01] MEDS: LACTOBACILLUS RHAMNOSUS GG 1 CAPSULE. PO SCH ×2 (08:18→20:46)
[2018-07-01] MEDS: SPIRONOLACTONE 25 MG TABLET PO SCH (08:18)
[2018-07-01] MEDS: ASPIRIN RECTAL 300 MG SUPP. PR SCH (08:18)
[2018-07-01] MEDS: HEPARIN for SUB-Q USE 5,000 UNIT/ML VIAL. SQ SCH ×2 (08:20→20:45)
[2018-07-01] MEDS: LISINOPRIL 5 MG TABLET. PO SCH (08:25)
[2018-07-01] MEDS: POTASSIUM CHLORIDE 20 MEQ TABLET.ER. PO SCH (08:25)
[2018-07-01] MEDS: CHLORHEXIDINE 0.12% 15 ML MOUTHWASH. MM SCH ×2 (08:25→20:49)
--- NOTE | 2018-07-01 08:38 | PDOC ---
PROGRESS NOTES Chief Complaint Chief Complaint Triple vessel Disease by [facility] 06/22/18 Severe ischemic CM with EF 30% and severe left main dz Severe PAD with 80% diffuse infrarenal stenosis, 95% stenosis at aortic bifurcation. Acute on chronic CHF AECOPD/pulmonary HTN LE edema more to RLE with small superficial right posterior ulcer. PAD, poor pulses - OP arteriogram Hypothyroidism TSH 5 with T4 at goal on synthroid constipated - bowel regimen Hypokalemia . corrected Morbid obesity with likely GÓMEZ Severe onychomycoses DM2 - A1c 7.9 History of Present Illness History of Present Illness POD 2 S/p PCI of LAD, aortoiliac interventions and infrarenal aorta DBX angioplasty/stent today by [facility] sx and cards. Had to return to OR for pulselessness in RLE 06/29 overnight, she has recovered well, still intubated, sheath with a-line still in place. Still intubated, no vent abnormalities BP low, labs reviewed. Right IJ CVC placed for pressor support Plan: CVC for pressors - levophed ordered for hypotension Monitor UOP Vent per pulm Vitals Vitals Vital Signs Date Time Temp Pulse Resp B/P (MAP) Pulse Ox O2 Delivery O2 Flow Rate FiO2 07/01/18 07:04 100 Ventilator 07/01/18 06:00 86 18 84/45 (58) 07/01/18 04:00 99.4 99.4 06/30/18 13:53 3.0 Physical Exam General: No acute distress, Other (Sedated, intubated) Heart: Regular rate, Normal S1, Normal S2 Lungs: Wheezing Abdomen: Normal bowel sounds, Soft Extremities: Other (edema) Skin: Other Labs LABS Laboratory Tests Test 06/30/18 08:56 06/30/18 09:10 06/30/18 12:08 06/30/18 20:33 Glucose (Fingerstick) 183 mg/dL (70-99) 181 mg/dL (70-99) 147 mg/dL (70-99) O2 Saturation 93 % (92-99) Arterial Blood pH 7.48 (7.35-7.45) Arterial Blood pCO2 at Patient Temp 40 mmHg (35-46) Arterial Blood pO2 at Patient Temp 69 mmHg (65-108) Arterial Blood HCO3 29 mmol/L (21-28) Arterial Blood Base Excess 5 mmol/L (-3-3) FiO2 40 Test 07/01/18 06:00 07/01/18 07:00 07/01/18 07:12 White Blood Count 4.5 x10^3/uL (4.0-11.0) Red Blood Count 3.45 x10^6/uL (3.50-5.40) Hemoglobin 10.2 g/dL (12.0-15.5) Hematocrit 30.3 % (36.0-47.0) Mean Corpuscular Volume 88 fL (79-100) Mean Corpuscular Hemoglobin 30 pg (25-35) Mean Corpuscular Hemoglobin Concent 34 g/dL (31-37) Red Cell Distribution Width 17.4 % (11.5-14.5) Platelet Count 183 x10^3/uL (140-400) Neutrophils (%) (Auto) 88 % (31-73) Lymphocytes (%) (Auto) 5 % (24-48) Monocytes (%) (Auto) 7 % (0-9) Eosinophils (%) (Auto) 0 % (0-3) Basophils (%) (Auto) 0 % (0-3) Neutrophils # (Auto) 4.0 x10^3uL (1.8-7.7) Lymphocytes # (Auto) 0.2 x10^3/uL (1.0-4.8) Monocytes # (Auto) 0.3 x10^3/uL (0.0-1.1) Eosinophils # (Auto) 0.0 x10^3/uL (0.0-0.7) Basophils # (Auto) 0.0 x10^3/uL (0.0-0.2) Sodium Level 132 mmol/L (136-145) Potassium Level 4.0 mmol/L (3.5-5.1) Chloride Level 95 mmol/L (98-107) Carbon Dioxide Level 31 mmol/L (21-32) Anion Gap 6 (6-14) Blood Urea Nitrogen 15 mg/dL (7-20) Creatinine 1.0 mg/dL (0.6-1.0) Estimated GFR (Cockcroft-Gault) 54.5 Glucose Level 192 mg/dL (70-99) Calcium Level 8.0 mg/dL (8.5-10.1) O2 Saturation 91 % (92-99) Arterial Blood pH 7.49 (7.35-7.45) Arterial Blood pCO2 at Patient Temp 37 mmHg (35-46) Arterial Blood pO2 at Patient Temp 64 mmHg (65-108) Arterial Blood HCO3 28 mmol/L (21-28) Arterial Blood Base Excess 4 mmol/L (-3-3) Glucose (Fingerstick) 169 mg/dL (70-99) Assessment and Plan Assessmemt and Plan Problems Medical Problems: (1) Congestive heart failure Status: Acute Comment Review of Relevant I have reviewed the following items rosangela (where applicable) has been applied. Labs Laboratory Tests Test 06/29/18 14:45 06/29/18 18:29 06/29/18 19:10 06/29/18 23:00 White Blood Count 7.9 x10^3/uL (4.0-11.0) 6.8 x10^3/uL (4.0-11.0) Red Blood Count 4.12 x10^6/uL (3.50-5.40) 3.72 x10^6/uL (3.50-5.40) Hemoglobin 11.9 g/dL (12.0-15.5) 10.8 g/dL (12.0-15.5) Hematocrit 36.1 % (36.0-47.0) 32.8 % (36.0-47.0) Mean Corpuscular Volume 88 fL (79-100) 88 fL (79-100) Mean Corpuscular Hemoglobin 29 pg (25-35) 29 pg (25-35) Mean Corpuscular Hemoglobin Concent 33 g/dL (31-37) 33 g/dL (31-37) Red Cell Distribution Width 17.6 % (11.5-14.5) 17.7 % (11.5-14.5) Platelet Count 299 x10^3/uL (140-400) 210 x10^3/uL (140-400) Neutrophils (%) (Auto) 90 % (31-73) 88 % (31-73) Lymphocytes (%) (Auto) 5 % (24-48) 5 % (24-48) Monocytes (%) (Auto) 6 % (0-9) 6 % (0-9) Eosinophils (%) (Auto) 0 % (0-3) 1 % (0-3) Basophils (%) (Auto) 0 % (0-3) 0 % (0-3) Neutrophils # (Auto) 7.1 x10^3uL (1.8-7.7) 6.0 x10^3uL (1.8-7.7) Lymphocytes # (Auto) 0.4 x10^3/uL (1.0-4.8) 0.3 x10^3/uL (1.0-4.8) Monocytes # (Auto) 0.4 x10^3/uL (0.0-1.1) 0.4 x10^3/uL (0.0-1.1) Eosinophils # (Auto) 0.0 x10^3/uL (0.0-0.7) 0.1 x10^3/uL (0.0-0.7) Basophils # (Auto) 0.0 x10^3/uL (0.0-0.2) 0.0 x10^3/uL (0.0-0.2) Glucose (Fingerstick) 186 mg/dL (70-99) O2 Saturation 92 % (92-99) Arterial Blood pH 7.52 (7.35-7.45) Arterial Blood pCO2 at Patient Temp 34 mmHg (35-46) Arterial Blood pO2 at Patient Temp 63 mmHg (65-108) Arterial Blood HCO3 27 mmol/L (21-28) Arterial Blood Base Excess 4 mmol/L (-3-3) Oxyhemoglobin 91.1 % Methemoglobin 0.3 % (0.0-1.9) Carbon Monoxide, Quantitative 0.3 % (0.0-1.9) FiO2 40 Test 06/29/18 23:43 06/30/18 05:30 06/30/18 08:56 06/30/18 09:10 Glucose (Fingerstick) 185 mg/dL (70-99) 183 mg/dL (70-99) White Blood Count 8.2 x10^3/uL (4.0-11.0) Red Blood Count 3.96 x10^6/uL (3.50-5.40) Hemoglobin 11.5 g/dL (12.0-15.5) Hematocrit 34.6 % (36.0-47.0) Mean Corpuscular Volume 87 fL (79-100) Mean Corpuscular Hemoglobin 29 pg (25-35) Mean Corpuscular Hemoglobin Concent 33 g/dL (31-37) Red Cell Distribution Width 17.6 % (11.5-14.5) Platelet Count 250 x10^3/uL (140-400) Neutrophils (%) (Auto) 91 % (31-73) Lymphocytes (%) (Auto) 5 % (24-48) Monocytes (%) (Auto) 5 % (0-9) Eosinophils (%) (Auto) 0 % (0-3) Basophils (%) (Auto) 0 % (0-3) Neutrophils # (Auto) 7.5 x10^3uL (1.8-7.7) Lymphocytes # (Auto) 0.4 x10^3/uL (1.0-4.8) Monocytes # (Auto) 0.4 x10^3/uL (0.0-1.1) Eosinophils # (Auto) 0.0 x10^3/uL (0.0-0.7) Basophils # (Auto) 0.0 x10^3/uL (0.0-0.2) Sodium Level 125 mmol/L (136-145) Potassium Level 4.0 mmol/L (3.5-5.1) Chloride Level 89 mmol/L (98-107) Carbon Dioxide Level 28 mmol/L (21-32) Anion Gap 8 (6-14) Blood Urea Nitrogen 14 mg/dL (7-20) Creatinine 0.8 mg/dL (0.6-1.0) Estimated GFR (Cockcroft-Gault) 70.5 Glucose Level 195 mg/dL (70-99) Calcium Level 8.1 mg/dL (8.5-10.1) O2 Saturation 93 % (92-99) Arterial Blood pH 7.48 (7.35-7.45) Arterial Blood pCO2 at Patient Temp 40 mmHg (35-46) Arterial Blood pO2 at Patient Temp 69 mmHg (65-108) Arterial Blood HCO3 29 mmol/L (21-28) Arterial Blood Base Excess 5 mmol/L (-3-3) FiO2 40 Test 06/30/18 12:08 06/30/18 20:33 07/01/18 06:00 07/01/18 07:00 Glucose (Fingerstick) 181 mg/dL (70-99) 147 mg/dL (70-99) White Blood Count 4.5 x10^3/uL (4.0-11.0) Red Blood Count 3.45 x10^6/uL (3.50-5.40) Hemoglobin 10.2 g/dL (12.0-15.5) Hematocrit 30.3 % (36.0-47.0) Mean Corpuscular Volume 88 fL (79-100) Mean Corpuscular Hemoglobin 30 pg (25-35) Mean Corpuscular Hemoglobin Concent 34 g/dL (31-37) Red Cell Distribution Width 17.4 % (11.5-14.5) Platelet Count 183 x10^3/uL (140-400) Neutrophils (%) (Auto) 88 % (31-73) Lymphocytes (%) (Auto) 5 % (24-48) Monocytes (%) (Auto) 7 % (0-9) Eosinophils (%) (Auto) 0 % (0-3) Basophils (%) (Auto) 0 % (0-3) Neutrophils # (Auto) 4.0 x10^3uL (1.8-7.7) Lymphocytes # (Auto) 0.2 x10^3/uL (1.0-4.8) Monocytes # (Auto) 0.3 x10^3/uL (0.0-1.1) Eosinophils # (Auto) 0.0 x10^3/uL (0.0-0.7) Basophils # (Auto) 0.0 x10^3/uL (0.0-0.2) Sodium Level 132 mmol/L (136-145) Potassium Level 4.0 mmol/L (3.5-5.1) Chloride Level 95 mmol/L (98-107) Carbon Dioxide Level 31 mmol/L (21-32) Anion Gap 6 (6-14) Blood Urea Nitrogen 15 mg/dL (7-20) Creatinine 1.0 mg/dL (0.6-1.0) Estimated GFR (Cockcroft-Gault) 54.5 Glucose Level 192 mg/dL (70-99) Calcium Level 8.0 mg/dL (8.5-10.1) O2 Saturation 91 % (92-99) Arterial Blood pH 7.49 (7.35-7.45) Arterial Blood pCO2 at Patient Temp 37 mmHg (35-46) Arterial Blood pO2 at Patient Temp 64 mmHg (65-108) Arterial Blood HCO3 28 mmol/L (21-28) Arterial Blood Base Excess 4 mmol/L (-3-3) Test 07/01/18 07:12 Glucose (Fingerstick) 169 mg/dL (70-99) Laboratory Tests Test 06/30/18 08:56 06/30/18 09:10 06/30/18 12:08 06/30/18 20:33 Glucose (Fingerstick) 183 mg/dL (70-99) 181 mg/dL (70-99) 147 mg/dL (70-99) O2 Saturation 93 % (92-99) Arterial Blood pH 7.48 (7.35-7.45) Arterial Blood pCO2 at Patient Temp 40 mmHg (35-46) Arterial Blood pO2 at Patient Temp 69 mmHg (65-108) Arterial Blood HCO3 29 mmol/L (21-28) Arterial Blood Base Excess 5 mmol/L (-3-3) FiO2 40 Test 07/01/18 06:00 07/01/18 07:00 07/01/18 07:12 White Blood Count 4.5 x10^3/uL (4.0-11.0) Red Blood Count 3.45 x10^6/uL (3.50-5.40) Hemoglobin 10.2 g/dL (12.0-15.5) Hematocrit 30.3 % (36.0-47.0) Mean Corpuscular Volume 88 fL (79-100) Mean Corpuscular Hemoglobin 30 pg (25-35) Mean Corpuscular Hemoglobin Concent 34 g/dL (31-37) Red Cell Distribution Width 17.4 % (11.5-14.5) Platelet Count 183 x10^3/uL (140-400) Neutrophils (%) (Auto) 88 % (31-73) Lymphocytes (%) (Auto) 5 % (24-48) Monocytes (%) (Auto) 7 % (0-9) Eosinophils (%) (Auto) 0 % (0-3) Basophils (%) (Auto) 0 % (0-3) Neutrophils # (Auto) 4.0 x10^3uL (1.8-7.7) Lymphocytes # (Auto) 0.2 x10^3/uL (1.0-4.8) Monocytes # (Auto) 0.3 x10^3/uL (0.0-1.1) Eosinophils # (Auto) 0.0 x10^3/uL (0.0-0.7) Basophils # (Auto) 0.0 x10^3/uL (0.0-0.2) Sodium Level 132 mmol/L (136-145) Potassium Level 4.0 mmol/L (3.5-5.1) Chloride Level 95 mmol/L (98-107) Carbon Dioxide Level 31 mmol/L (21-32) Anion Gap 6 (6-14) Blood Urea Nitrogen 15 mg/dL (7-20) Creatinine 1.0 mg/dL (0.6-1.0) Estimated GFR (Cockcroft-Gault) 54.5 Glucose Level 192 mg/dL (70-99) Calcium Level 8.0 mg/dL (8.5-10.1) O2 Saturation 91 % (92-99) Arterial Blood pH 7.49 (7.35-7.45) Arterial Blood pCO2 at Patient Temp 37 mmHg (35-46) Arterial Blood pO2 at Patient Temp 64 mmHg (65-108) Arterial Blood HCO3 28 mmol/L (21-28) Arterial Blood Base Excess 4 mmol/L (-3-3) Glucose (Fingerstick) 169 mg/dL (70-99) Medications Current Medications Furosemide (Lasix) 40 mg 1X ONCE IVP Last administered on 06/18/18at 14:59; Start 06/18/18 at 14:00; Stop 06/18/18 at 14:47; Status DC Aspirin (Children'S Aspirin) 324 mg 1X ONCE PO Last administered on 06/18/18at 14:59; Start 06/18/18 at 14:00; Stop 06/18/18 at 14:47; Status DC Potassium Chloride (KCl Oral Soln) 40 meq 1X ONCE PO Last administered on at 14:59; Start 06/18/18 at 15:00; Stop 06/18/18 at 15:01; Status DC Furosemide (Lasix) 40 mg DAILY IVP ; Start 06/19/18 at 09:00; Stop 06/19/18 at 09: 00; Status DC Furosemide (Lasix) 40 mg [id number] IVP ; Start 06/19/18 at 09:00; Stop 06/19/18 at 09: 00; Status DC Lisinopril (Prinivil) 2.5 mg DAILY PO Last administered on 06/29/18 09:48; Start 06/19/18 at 09:00 Furosemide (Lasix) 40 mg [id number] IV Last administered on 07/01/18 08:18; Start 06/18/18 at 16:00 Spironolactone (Aldactone) 25 mg DAILY PO Last administered on 07/01/18 08:18 ; Start 06/19/18 at 09:00 Heparin Sodium (Porcine) (Heparin Sodium) 5,000 unit Q12HR SQ Last administered on 07/01/18 08:20; Start 06/18/18 at 16:00 Sodium Chloride (Normal Saline Flush) 3 ml QSHIFT PRN IV AFTER MEDS AND BLOOD DRAWS; Start 06/18/18 at 16:00 Ondansetron HCl (Zofran) 4 mg PRN Q4HRS PRN IV NAUSEA/VOMITING; Start 06/18/18 at 16:00 Acetaminophen (Tylenol) 650 mg PRN Q4HRS PRN PO TEMP OVER 100.4F OR MILD PAIN Last administered on 06/28/18 20:56; Start 06/18/18 at 16:00 Sodium Monofluorophosphate (Fleet Adult) 133 ml PRN DAILY PRN [place] CONSTIPATION; Start 06/18/18 at 16:00 Diphenhydramine HCl (Benadryl) 25 mg PRN Q4HRS PRN IVP ITCHING Last administered on 06/28/18 20:56; Start 06/18/18 at 16:00 Docusate Sodium (Colace) 100 mg PRN BID PRN PO CONSTIPATION Last administered on 06/27/18 08:41; Start 06/18/18 at 16:00 Albuterol Sulfate (Ventolin Neb Soln) 2.5 mg PRN Q4HRS PRN NEB SHORTNESS OF BREATH; Start 06/18/18 at 16:00 Albuterol/ Ipratropium (Duoneb) 3 ml Q4HRS NEB Last administered on 07/01/18 07:03; Start 06/18/18 at 16:00 Aspirin (Ecotrin) 81 mg DAILY08 PO Last administered on 4/15/19at 10:14; Start 06/19/18 at 08:00 Levothyroxine Sodium (Synthroid) 88 mcg DAILY08 PO Last administered on at 08:17; Start 06/19/18 at 08:00 Latanoprost (Xalatan) 1 drop QHS OU Last administered on 06/30/18at 20:31; Start 06/18/18 at 21:00 Potassium Chloride (KCl Oral Soln) 40 meq 1X ONCE PO Last administered on at 13:43; Start 06/19/18 at 13:00; Stop 06/19/18 at 13:01; Status DC Insulin Glargine (Lantus) 5 units QHS SQ Last administered on 06/30/18at 20:34; Start 06/19/18 at 21:00 Insulin Human Lispro (HumaLOG) 0-5 UNITS TIDWMEALS SQ Last administered on 06/28at 17:37; Start 06/19/18 at 12:30 Dextrose (Dextrose 50%-Water Syringe) 12.5 gm PRN Q15MIN PRN IV SEE COMMENTS; Start 06/19/18 at 12:15 Clindamycin Phosphate 50 ml @ 100 mls/hr Q8HRS IV Last administered on at 14:17; Start 06/21/18 at 10:00; Stop 06/24/18 at 15:00; Status DC Lactobacillus Rhamnosus (Culturelle) 1 cap BID PO Last administered on at 08:18; Start 06/21/18 at 21:00 Milrinone Lactate/ Dextrose 100 ml @ 4.022 mls/ hr CONT PRN IV SEE I/O RECORD Last administered on 06/30/18at 19:02; Start 06/22/18 at 13:00 Iodixanol (Visipaque 320) 100 ml STK-MED ONCE .ROUTE ; Start 06/23/18 at 06:35; Stop 06/23/18 at 06:36; Status DC Lidocaine HCl (Lidocaine 1% 20ml Vial) 20 ml STK-MED ONCE .ROUTE ; Start at 06:35; Stop 06/23/18 at 06:36; Status DC Heparin Sodium/ Sodium Chloride 1,500 ml @ As Directed STK-MED ONCE .ROUTE ; Start 06/23/18 at 06:35; Stop 06/23/18 at 06:36; Status DC Iodixanol (Visipaque 320) 100 ml STK-MED ONCE .ROUTE ; Start 06/23/18 at 07:26; Stop 06/23/18 at 07:27; Status DC Midazolam HCl (Versed) 2 mg STK-MED ONCE .ROUTE ; Start 06/23/18 at 07:30; Stop 06/23/18 at 07:31; Status DC Fentanyl Citrate (Fentanyl 2ml Vial) 100 mcg STK-MED ONCE .ROUTE ; Start at 07:30; Stop 06/23/18 at 07:31; Status DC Verapamil HCl (Verapamil) 5 mg STK-MED ONCE .ROUTE ; Start 06/23/18 at 07:30; Stop 06/23/18 at 07:31; Status DC Heparin Sodium (Porcine) (Heparin Sodium) 10,000 unit STK-MED ONCE .ROUTE ; Start 06/23/18 at 07:30; Stop 06/23/18 at 07:31; Status DC Nitroglycerin (Nitroglycerin) 200 mcg STK-MED ONCE .ROUTE ; Start 06/23/18 at 07 :30; Stop 06/23/18 at 07:31; Status DC Nitroglycerin (Nitroglycerin) 200 mcg 1X ONCE IART Last administered on at 08:20; Start 06/23/18 at 08:15; Stop 06/23/18 at 08:18; Status DC Verapamil HCl (Verapamil) 2.5 mg 1X ONCE IART Last administered on 06/23/18at 08:22; Start 06/23/18 at 08:15; Stop 06/23/18 at 08:18; Status DC Heparin Sodium (Porcine) (Heparin Sodium) 2,500 unit 1X ONCE IART Last administered on 06/23/18at 08:23; Start 06/23/18 at 08:15; Stop 06/23/18 at 08:18 ; Status DC Heparin Sodium/ Sodium Chloride (HEPARIN for ARTERIAL LINE FLUSH) 1,000 unit 1X ONCE IART Last administered on 06/23/18at 08:20; Start 06/23/18 at 08:15; Stop 06/23/18 at 08:18; Status DC Heparin Sodium/ Sodium Chloride (HEPARIN for ARTERIAL LINE FLUSH) 1,000 unit 1X ONCE IART Last administered on 06/23/18 08:20; Start 06/23/18 at 08:15; Stop 06/23/18 at 08:18; Status DC Midazolam HCl (Versed) 1.5 mg 1X ONCE IV Last administered on 06/23/18 08:21 ; Start 06/23/18 at 08:15; Stop 06/23/18 at 08:18; Status DC Fentanyl Citrate (Fentanyl 2ml Vial) 75 mcg 1X ONCE IV Last administered on 08:22; Start 06/23/18 at 08:15; Stop 06/23/18 at 08:18; Status DC Iodixanol (Visipaque 320) 99 ml 1X ONCE IART Last administered on 06/23/18 08 :20; Start 06/23/18 at 08:15; Stop 06/23/18 at 08:18; Status DC Lidocaine HCl (Lidocaine 1% 20ml Vial) 1 ml 1X ONCE INJ Last administered on 08:20; Start 06/23/18 at 08:15; Stop 06/23/18 at 08:18; Status DC Info (CONTRAST GIVEN -- Rx MONITORING) 1 each PRN DAILY PRN MC SEE COMMENTS; Start 06/23/18 at 08:30; Stop 06/25/18 at 08:29; Status DC Sodium Chloride 250 ml @ 250 mls/hr 1X ONCE IV Last administered on 11:07; Start 06/23/18 at 11:15; Stop 06/23/18 at 12:14; Status DC Furosemide (Lasix) 40 mg 1X ONCE IVP Last administered on 06/23/18at 20:46; Start 06/23/18 at 20:15; Stop 06/23/18 at 20:19; Status DC Magnesium Sulfate 50 ml @ 25 mls/hr 1X ONCE IV Last administered on 06/24/18at 14:13; Start 06/24/18 at 12:30; Stop 06/24/18 at 14:29; Status DC Potassium Chloride (Klor-Con) 40 meq 1X ONCE PO Last administered on at 14:14; Start 06/24/18 at 12:30; Stop 06/24/18 at 12:31; Status DC Clindamycin HCl (Cleocin) 300 mg QID PO Last administered on 06/28/18at 20:56; Start 06/24/18 at 21:00; Stop 06/29/18 at 15:41; Status DC Potassium Chloride (Klor-Con) 40 meq DAILY PO Last administered on 06/28/18at 10 :16; Start 06/25/18 at 11:15 Magnesium Sulfate 50 ml @ 25 mls/hr 1X ONCE IV Last administered on 06/25/18at 12:07; Start 06/25/18 at 11:15; Stop 06/25/18 at 13:14; Status DC Potassium Chloride (Klor-Con) 40 meq 1X ONCE PO Last administered on at 08:50; Start 06/26/18 at 07:45; Stop 06/26/18 at 07:50; Status DC Clopidogrel Bisulfate (Plavix) 300 mg 1X ONCE PO Last administered on at 13:10; Start 06/26/18 at 11:00; Stop 06/26/18 at 11:06; Status DC Clopidogrel Bisulfate (Plavix) 75 mg DAILYWBKFT PO Last administered on at 08:17; Start 06/27/18 at 08:00 Methylprednisolone Sodium Succinate (SOLU-Medrol 40MG VIAL) 40 mg Q8HRS IV Last administered on 07/01/18at 05:55; Start 06/27/18 at 09:15 Atorvastatin Calcium (Lipitor) 40 mg QHS PO Last administered on 06/30/18at 20: 30; Start 06/28/18 at 21:00 Heparin Sodium (Porcine) 5000 unit/Sodium Chloride 505 ml @ 505 mls/hr 1X ONCE IRR ; Start 06/29/18 at 06:00; Stop 06/29/18 at 06:59; Status DC Cefazolin Sodium/ Dextrose 50 ml @ 100 mls/hr 1X PREOP PRN IV on hold OR; Start 06/29/18 at 06:00; Stop 06/29/18 at 11:19; Status DC Ondansetron HCl (Zofran) 4 mg PRN Q6HRS PRN IV NAUSEA/VOMITING; Start 06/29/18 at 07:00; Stop 06/30/18 at 06:59; Status DC Fentanyl Citrate (Fentanyl 2ml Vial) 25 mcg PRN Q5MIN PRN IV MILD PAIN; Start 06/29/18 at 07:00; Stop 06/30/18 at 06:59; Status DC Fentanyl Citrate (Fentanyl 2ml Vial) 50 mcg PRN Q5MIN PRN IV MODERATE TO SEVERE PAIN; Start 06/29/18 at 07:00; Stop 06/30/18 at 06:59; Status DC Morphine Sulfate (Morphine Sulfate) 1 mg PRN Q10MIN PRN IV SEVERE PAIN; Start 06/29/18 at 07:00; Stop 06/30/18 at 06:59; Status DC Ringer's Solution 1,000 ml @ 30 mls/hr Q24H IV Last administered on 06/29/18at 10:12; Start 06/29/18 at 07:00; Stop 06/29/18 at 18:59; Status DC Lidocaine HCl (Xylocaine-Mpf 1% 2ml Vial) 2 ml PRN 1X PRN ID PRIOR TO IV START ; Start 06/29/18 at 07:00; Stop 06/30/18 at 06:59; Status DC Hydromorphone HCl (Dilaudid) 0.5 mg PRN Q10MIN PRN IV SEV PAIN, Second choice; Start 06/29/18 at 07:00; Stop 06/30/18 at 06:59; Status DC Prochlorperazine Edisylate (Compazine) 5 mg PACU PRN PRN IV NAUSEA, MRX1; Start 06/29/18 at 07:00; Stop 06/30/18 at 06:59; Status DC Bupivacaine HCl/ Epinephrine Bitart (Sensorcain-Mpf Epi 0.5%-[id number]) 30 ml STK -MED ONCE .ROUTE ; Start 06/29/18 at 05:59; Stop 06/29/18 at 06:59; Status DC Gelatin (Gelfoam Size 12-7mm) 1 each STK-MED ONCE .ROUTE ; Start 06/29/18 at 05 :59; Stop 06/29/18 at 06:59; Status DC Iohexol (Omnipaque 300 Mg/ml) 100 ml STK-MED ONCE .ROUTE ; Start 06/29/18 at 05: 59; Stop 06/29/18 at 07:00; Status DC Bupivacaine HCl (Sensorcaine Mpf 0.25%) 30 ml STK-MED ONCE .ROUTE ; Start at 05:59; Stop 06/29/18 at 07:00; Status DC Papaverine HCl 60 mg STK-MED ONCE .ROUTE ; Start 06/29/18 at 06:00; Stop at 07:01; Status DC Thrombin 20,000 unit STK-MED ONCE TP ; Start 06/29/18 at 06:00; Stop 06/29/18 at 07:01; Status DC Sodium Chloride (SODIUM CHLORIDE 20ml) 20 ml STK-MED ONCE IJ ; Start 06/29/18 at 09:46; Stop 06/29/18 at 09:47; Status DC Famotidine (Pepcid Vial) 20 mg STK-MED ONCE .ROUTE ; Start 06/29/18 at 09:46; Stop 06/29/18 at 09:47; Status DC Ondansetron HCl (Zofran) 4 mg STK-MED ONCE .ROUTE ; Start 06/29/18 at 09:46; Stop 06/29/18 at 09:47; Status DC Dexamethasone Sodium Phosphate (Decadron) 20 mg STK-MED ONCE .ROUTE ; Start at 09:46; Stop 06/29/18 at 09:47; Status DC Lidocaine HCl (Lidocaine Pf 2% Vial) 5 ml STK-MED ONCE .ROUTE ; Start 06/29/18 at 09:46; Stop 06/29/18 at 09:47; Status DC Etomidate (Amidate) 20 mg STK-MED ONCE IV ; Start 06/29/18 at 09:46; Stop at 09:47; Status DC Phenylephrine HCl (PHENYLEPHRINE in 0.9% NACL PF) 1 mg STK-MED ONCE IV ; Start 06/29/18 at 09:46; Stop 06/29/18 at 09:47; Status DC Fentanyl Citrate (Fentanyl 2ml Vial) 100 mcg STK-MED ONCE .ROUTE ; Start at 09:47; Stop 06/29/18 at 09:48; Status DC Hydromorphone HCl (Dilaudid) 2 mg STK-MED ONCE .ROUTE ; Start 06/29/18 at 09:47 ; Stop 06/29/18 at 09:48; Status DC Glycopyrrolate (Robinul) 1 mg STK-MED ONCE .ROUTE ; Start 06/29/18 at 09:47; Stop 06/29/18 at 09:48; Status DC Rocuronium [place] (Zemuron) 100 mg STK-MED ONCE .ROUTE ; Start 06/29/18 at 09: 47; Stop 06/29/18 at 09:48; Status DC Neostigmine Methylsulfate (Neostigmine Methylsulfate) 5 mg STK-MED ONCE .ROUTE ; Start 06/29/18 at 09:47; Stop 06/29/18 at 09:48; Status DC Albumin Human 0 ml @ As Directed STK-MED ONCE IV ; Start 06/29/18 at 09:48; Stop 06/29/18 at 09:49; Status DC Iodixanol (Visipaque 320) 100 ml STK-MED ONCE .ROUTE ; Start 06/29/18 at 10:11; Stop 06/29/18 at 10:12; Status DC Lidocaine HCl (Lidocaine 1% 20ml Vial) 20 ml STK-MED ONCE .ROUTE ; Start at 10:11; Stop 06/29/18 at 10:12; Status DC Iodixanol (Visipaque 320) 50 ml STK-MED ONCE .ROUTE ; Start 06/29/18 at 10:11; Stop 06/29/18 at 10:12; Status DC Heparin Sodium/ Sodium Chloride 1,000 ml @ As Directed STK-MED ONCE .ROUTE ; Start 06/29/18 at 10:11; Stop 06/29/18 at 10:12; Status DC Bupivacaine HCl (Sensorcaine Mpf 0.5%) 30 ml STK-MED ONCE .ROUTE Last administered on 06/29/18at 12:42; Start 06/29/18 at 09:59; Stop 06/29/18 at 10:59 ; Status DC Bacitracin (Bacitracin) 50,000 unit STK-MED ONCE IRR ; Start 06/29/18 at 10:00; Stop 06/29/18 at 11:00; Status DC Vancomycin HCl 250 ml @ 250 mls/hr 1X ONCE IV Last administered on 06/29/18at 11:15; Start 06/29/18 at 11:15; Stop 06/29/18 at 12:14; Status DC Heparin Sodium (Porcine) (Heparin Sodium) 10,000 unit STK-MED ONCE .ROUTE ; Start 06/29/18 at 11:49; Stop 06/29/18 at 11:50; Status DC Cellulose (Surgicel Fibrillar 1x2) 1 each STK-MED ONCE .ROUTE ; Start 06/29/18 at 11:50; Stop 06/29/18 at 11:51; Status DC Phenylephrine HCl (Justin-Synephrine Inj) 10 mg STK-MED ONCE .ROUTE ; Start at 11:57; Stop 06/29/18 at 11:58; Status DC Sevoflurane (Ultane) 90 ml STK-MED ONCE IH ; Start 06/29/18 at 12:07; Stop 06/29 at 12:08; Status DC Heparin Sodium/ Sodium Chloride 500 ml @ As Directed STK-MED ONCE .ROUTE ; Start 06/29/18 at 12:35; Stop 06/29/18 at 12:36; Status DC Iodixanol (Visipaque 320) 100 ml STK-MED ONCE .ROUTE ; Start 06/29/18 at 12:52; Stop 06/29/18 at 12:53; Status DC Iodixanol (Visipaque 320) 100 ml STK-MED ONCE .ROUTE ; Start 06/29/18 at 13:17; Stop 06/29/18 at 13:18; Status DC Lidocaine HCl (Lidocaine 1% 20ml Vial) 20 ml STK-MED ONCE .ROUTE ; Start at 13:17; Stop 06/29/18 at 13:18; Status DC Heparin Sodium/ Sodium Chloride 1,000 ml @ As Directed STK-MED ONCE .ROUTE ; Start 06/29/18 at 13:18; Stop 06/29/18 at 13:19; Status DC Heparin Sodium (Porcine) (Heparin Sodium) 10,000 unit STK-MED ONCE .ROUTE ; Start 06/29/18 at 13:19; Stop 06/29/18 at 13:20; Status DC Heparin Sodium/ Sodium Chloride (HEPARIN for ARTERIAL LINE FLUSH) 1,000 unit 1X ONCE IART Last administered on 06/29/18at 14:15; Start 06/29/18 at 14:15; Stop 06/29/18 at 14:16; Status DC Heparin Sodium/ Sodium Chloride (HEPARIN for ARTERIAL LINE FLUSH) 1,000 unit 1X ONCE IART Last administered on 06/29/18at 14:15; Start 06/29/18 at 14:15; Stop 06/29/18 at 14:16; Status DC Heparin Sodium (Porcine) (Heparin Sodium) 4,000 unit 1X ONCE IV Last administered on 06/29/18at 14:15; Start 06/29/18 at 14:15; Stop 06/29/18 at 14:16 ; Status DC Iodixanol (Visipaque 320) 100 ml 1X ONCE IART Last administered on 06/29/18at 14:30; Start 06/29/18 at 14:30; Stop 06/29/18 at 14:31; Status DC Heparin Sodium/ Sodium Chloride 500 ml @ As Directed STK-MED ONCE .ROUTE ; Start 06/29/18 at 14:35; Stop 06/29/18 at 14:36; Status DC Nitroglycerin (Nitroglycerin) 200 mcg 1X ONCE IART Last administered on at 15:30; Start 06/29/18 at 15:30; Stop 06/29/18 at 15:31; Status DC Iodixanol (Visipaque 320) 100 ml STK-MED ONCE .ROUTE ; Start 06/29/18 at 15:51; Stop 06/29/18 at 15:52; Status DC Iodixanol (Visipaque 320) 100 ml STK-MED ONCE .ROUTE ; Start 06/29/18 at 16:52; Stop 06/29/18 at 16:53; Status DC Aspirin (Aspirin) 300 mg 1X ONCE [place] Last administered on 06/29/18at 18:18; Start 06/29/18 at 17:30; Stop 06/29/18 at 17:31; Status DC Clopidogrel Bisulfate (Plavix) 300 mg 1X ONCE PO Last administered on at 18:18; Start 06/29/18 at 17:30; Stop 06/29/18 at 17:31; Status DC Fentanyl Citrate 30 ml @ 0 mls/hr CONT PRN IV SEE PROTOCOL Last administered on 07/01/18at 04:49; Start 06/29/18 at 17:30 Fentanyl Citrate (Fentanyl 2ml Vial) 25 mcg PRN Q1HR PRN IV SEE COMMENTS; Start 06/29/18 at 17:30 Fentanyl Citrate (Fentanyl 2ml Vial) 50 mcg PRN Q1HR PRN IV SEE COMMENTS; Start 06/29/18 at 17:30 Chlorhexidine Gluconate (Peridex) 15 ml BID MM Last administered on 07/01/18at 08:25; Start 06/29/18 at 21:00 Morphine Sulfate (Morphine Sulfate) 2 mg PRN Q1HR PRN IV SEE COMMENTS.; Start 06/29/18 at 17:30 Morphine Sulfate (Morphine Sulfate) 4 mg PRN Q1HR PRN IV SEE COMMENTS.; Start 06/29/18 at 17:30 Midazolam HCl 100 ml @ 0 mls/hr CONT PRN IV SEE PROTOCOL Last administered on at 12:04; Start 06/29/18 at 17:30 Vecuronium [place] (Norcuron Bolus) 6 mg PRN Q2HRS PRN IV ANXIETY / AGITATION; Start 06/29/18 at 17:30 Heparin Sodium (Porcine) 5000 unit/Sodium Chloride 505 ml @ 505 mls/hr 1X ONCE IRR Last administered on 06/29/18at 20:34; Start 06/29/18 at 19:30; Stop at 20:30; Status DC Iohexol (Omnipaque 300 Mg/ml) 100 ml STK-MED ONCE .ROUTE ; Start 06/29/18 at 18: 16; Stop 06/29/18 at 19:17; Status DC Cellulose (Surgicel Fibrillar 1x2) 1 each STK-MED ONCE .ROUTE ; Start 06/29/18 at 19:17; Stop 06/29/18 at 19:18; Status DC Rocuronium [place] (Zemuron) 50 mg STK-MED ONCE .ROUTE ; Start 06/29/18 at 19:42 ; Stop 06/29/18 at 19:43; Status DC Vancomycin HCl 1 gm/Sodium Chloride 250 ml @ 250 mls/hr 1X ONCE IV Last administered on 06/29/18at 20:34; Start 06/29/18 at 20:45; Stop 06/29/18 at 21:44 ; Status DC Vancomycin HCl 250 ml @ 250 mls/hr 1X ONCE IV ; Start 06/29/18 at 20:45; Stop 06/29/18 at 21:44; Status UNV Hydrocortisone Sodium Succinate (Solu-CORTEF) 100 mg STK-MED ONCE .ROUTE ; Start 06/29/18 at 20:50; Stop 06/29/18 at 20:51; Status DC Heparin Sodium (Porcine) (Heparin Sodium) 10,000 unit STK-MED ONCE .ROUTE ; Start 06/29/18 at 21:01; Stop 06/29/18 at 21:02; Status DC Phenylephrine HCl (PHENYLEPHRINE in 0.9% NACL PF) 1 mg STK-MED ONCE IV ; Start 06/29/18 at 21:35; Stop 06/29/18 at 21:36; Status DC Sevoflurane (Ultane) 90 ml STK-MED ONCE IH ; Start 06/29/18 at 21:36; Stop 06/29 at 21:37; Status DC Protamine Sulfate (Protamine) 50 mg STK-MED ONCE IV ; Start 06/29/18 at 21:45; Stop 06/29/18 at 21:46; Status DC Cellulose (Surgicel Fibrillar 1x2) 1 each STK-MED ONCE TP Last administered on 06/29/18at 21:52; Start 06/29/18 at 21:52; Stop 06/29/18 at 21:58; Status DC Sodium Chloride 500 ml @ 500 mls/hr 1X ONCE IV Last administered on at 23:47; Start 06/29/18 at 23:00; Stop 06/29/18 at 23:59; Status DC Sodium Chloride 500 ml @ 500 mls/hr 1X ONCE IV Last administered on at 00:27; Start 06/30/18 at 00:00; Stop 06/30/18 at 00:59; Status DC Norepinephrine Bitartrate 250 ml @ 1.875 mls/ hr CONT PRN IV SEE I/O RECORD Last administered on 06/30/18at 00:26; Start 06/29/18 at 23:45 Rocuronium [place] (Zemuron) 50 mg STK-MED ONCE .ROUTE ; Start 06/29/18 at 12:00 ; Stop 06/30/18 at 08:09; Status DC Aspirin (Aspirin) 300 mg DAILY [place] Last administered on 07/01/18at 08:18; Start 06/30/18 at 10:00 Potassium Chloride (KCl Oral Soln) 40 meq DAILY PEG Last administered on at 08:18; Start 06/30/18 at 10:00 Cefazolin Sodium/ Dextrose (Ancef 2gm Premix) 2 gm STK-MED ONCE IV ; Start 06/29 at 11:00; Stop 06/30/18 at 12:24; Status DC Hydralazine HCl (Apresoline Inj) 10 mg PRN Q6HRS PRN IVP ELEVATED BP, SEE COMMENTS; Start 06/30/18 at 14:00; Status UNV Albumin Human 100 ml @ 100 mls/hr 1X ONCE IV Last administered on 06/30/18at 19:39; Start 06/30/18 at 19:15; Stop 06/30/18 at 20:14; Status DC Phenylephrine HCl (PHENYLEPHRINE in 0.9% NACL PF) 0.1 mg 1X ONCE IV Last administered on 06/30/18at 19:15; Start 06/30/18 at 19:15; Stop 06/30/18 at 19:16 ; Status DC Active Scripts Active Clindamycin Hcl 300 Mg Capsule 300 Mg PO QID 7 Days Lasix (Furosemide) 40 Mg Tablet 40 Mg PO BID 14 Days Aldactone (Spironolactone) 25 Mg Tablet 25 Mg PO DAILY MDD 1 Lisinopril 5 Mg Tablet 2.5 Mg PO DAILY MDD 1 Proair Hfa (Albuterol Sulfate) 8.5 Gm Hfa.aer.ad 2.5 Mg NEB PRN Q4HRS PRN MDD 1 Reported Aspir-Low (Aspirin) 81 Mg Tablet. 1 Tab PO DAILY Triamterene-Hctz 37.5-25 Mg Cp (Triamterene/Hydrochlorothiazid) 1 Each Capsule 1 Cap PO DAILY Synthroid (Levothyroxine Sodium) 88 Mcg Tablet 1 Tab PO DAILY Latanoprost 2.5 Ml Drops 1 Drop EACHEYE HS Vitals/I & O Vital Sign - Last 24 Hours 06/30/18 06/30/18 06/30/18 06/30/18 09:00 10:00 10:05 11:00 Pulse 74 76 78 Resp 14 14 14 B/P (MAP) 98/68 (78) 92/56 (68) 94/58 (70) Pulse Ox 95 95 96 95 O2 Delivery Ventilator Ventilator Ventilator Ventilator 06/30/18 06/30/18 06/30/18 06/30/18 12:00 12:00 12:04 12:30 Pulse 78 B/P (MAP) 85/57 (66) Pulse Ox 95 95 O2 Delivery Mechanical Ventilator Ventilator Ventilator O2 Flow Rate 3.0 06/30/18 06/30/18 06/30/18 06/30/18 12:33 13:24 13:53 14:02 Temp 97.7 97.7 Pulse 75 75 76 Resp 14 14 B/P (MAP) 87/52 (64) 87/52 (64) 86/51 (63) Pulse Ox 95 95 95 95 O2 Delivery Ventilator Ventilator O2 Flow Rate 3.0 3.0 06/30/18 06/30/18 06/30/18 06/30/18 14:14 15:00 16:00 16:00 Pulse 76 80 Resp 14 14 B/P (MAP) 85/57 (66) 82/50 (61) Pulse Ox 98 95 95 O2 Delivery Ventilator Ventilator Mechanical Ventilator Ventilator 06/30/18 06/30/18 06/30/18 06/30/18 16:00 17:00 17:06 18:00 Pulse 78 83 87 Resp 14 14 B/P (MAP) 85/57 (66) 80/50 (60) 78/49 (59) Pulse Ox 95 98 95 O2 Delivery Ventilator Ventilator Ventilator 06/30/18 06/30/18 06/30/18 06/30/18 18:39 19:00 19:30 19:45 Pulse 86 90 86 Resp 14 14 14 B/P (MAP) 94/46 (62) 125/60 (81) 58/38 (45) Pulse Ox 98 97 98 99 O2 Delivery Ventilator Ventilator Ventilator Ventilator 06/30/18 06/30/18 06/30/18 06/30/18 19:58 20:00 20:00 20:00 Temp 98.2 98.2 Pulse 88 Resp 14 B/P (MAP) 75/36 (49) Pulse Ox 98 100 O2 Delivery Ventilator Mechanical Ventilator Ventilator 06/30/18 06/30/18 06/30/18 06/30/18 20:15 20:30 21:00 21:15 Pulse 91 91 98 93 Resp 14 B/P (MAP) 74/35 (48) 98/48 (65) 121/61 (81) 112/65 (81) Pulse Ox 100 O2 Delivery Ventilator 06/30/18 06/30/18 06/30/18 06/30/18 21:45 22:00 22:15 23:00 Pulse 92 89 87 86 Resp 14 14 B/P (MAP) 107/61 (76) 105/56 (72) 102/54 (70) 100/52 (68) Pulse Ox 100 100 O2 Delivery Ventilator Ventilator 06/30/18 06/30/18 07/01/18 07/01/18 23:02 23:15 00:00 00:00 Pulse 85 B/P (MAP) 97/51 (66) Pulse Ox 98 O2 Delivery Ventilator Mechanical Ventilator 07/01/18 07/01/18 07/01/18 07/01/18 00:00 00:15 01:00 01:15 Temp 98.3 98.3 Pulse 86 89 100 97 Resp 14 14 B/P (MAP) 94/55 (68) 87/45 (59) 97/55 (69) 95/50 (65) Pulse Ox 100 99 O2 Delivery Ventilator Ventilator 07/01/18 07/01/18 07/01/18 07/01/18 02:00 02:15 02:36 03:00 Pulse 92 94 90 Resp 14 14 B/P (MAP) 91/48 (62) 85/45 (58) 86/41 (56) Pulse Ox 98 98 97 O2 Delivery Ventilator Ventilator Ventilator 07/01/18 07/01/18 07/01/18 07/01/18 04:00 04:00 04:00 04:49 Temp 99.4 99.4 Pulse 90 90 Resp 21 24 B/P (MAP) 87/48 (61) 87/48 (61) Pulse Ox 100 94 O2 Delivery Mechanical Ventilator Ventilator Ventilator 07/01/18 07/01/18 07/01/18 07/01/18 04:59 05:00 05:19 06:00 Pulse 90 86 Resp 19 21 18 B/P (MAP) 96/55 (69) 84/45 (58) Pulse Ox 100 92 97 O2 Delivery Ventilator Ventilator Ventilator Ventilator 07/01/18 07:04 Pulse Ox 100 O2 Delivery Ventilator Intake and Output 06/30/18 06/30/18 07/01/18 15:00 23:00 07:00 Intake Total 281 ml 291 ml Output Total 1460 ml 745 ml 295 ml Balance -1460 ml -464 ml -4 ml JAN FLORES MD Jul 01, 2018 08:38
--- NOTE | 2018-07-01 10:39 | PDOC ---
PULMONARY PROGRESS NOTES Subjective On AC mode off sedation, not awake yet Vitals Vital Signs Date Time Temp Pulse Resp B/P (MAP) Pulse Ox O2 Delivery O2 Flow Rate FiO2 07/01/18 08:59 99 Ventilator 07/01/18 08:00 07/01/18 06:00 86 18 07/01/18 04:00 99.4 99.4 06/30/18 13:53 3.0 Lungs: Other (decrease bs) Cardiovascular: S1 Abdomen: Soft Extremities: Other (trace edema) Labs Laboratory Tests Test 06/29/18 14:45 06/29/18 18:29 06/29/18 19:10 06/29/18 23:00 White Blood Count 7.9 x10^3/uL (4.0-11.0) 6.8 x10^3/uL (4.0-11.0) Red Blood Count 4.12 x10^6/uL (3.50-5.40) 3.72 x10^6/uL (3.50-5.40) Hemoglobin 11.9 g/dL (12.0-15.5) 10.8 g/dL (12.0-15.5) Hematocrit 36.1 % (36.0-47.0) 32.8 % (36.0-47.0) Mean Corpuscular Volume 88 fL (79-100) 88 fL (79-100) Mean Corpuscular Hemoglobin 29 pg (25-35) 29 pg (25-35) Mean Corpuscular Hemoglobin Concent 33 g/dL (31-37) 33 g/dL (31-37) Red Cell Distribution Width 17.6 % (11.5-14.5) 17.7 % (11.5-14.5) Platelet Count 299 x10^3/uL (140-400) 210 x10^3/uL (140-400) Neutrophils (%) (Auto) 90 % (31-73) 88 % (31-73) Lymphocytes (%) (Auto) 5 % (24-48) 5 % (24-48) Monocytes (%) (Auto) 6 % (0-9) 6 % (0-9) Eosinophils (%) (Auto) 0 % (0-3) 1 % (0-3) Basophils (%) (Auto) 0 % (0-3) 0 % (0-3) Neutrophils # (Auto) 7.1 x10^3uL (1.8-7.7) 6.0 x10^3uL (1.8-7.7) Lymphocytes # (Auto) 0.4 x10^3/uL (1.0-4.8) 0.3 x10^3/uL (1.0-4.8) Monocytes # (Auto) 0.4 x10^3/uL (0.0-1.1) 0.4 x10^3/uL (0.0-1.1) Eosinophils # (Auto) 0.0 x10^3/uL (0.0-0.7) 0.1 x10^3/uL (0.0-0.7) Basophils # (Auto) 0.0 x10^3/uL (0.0-0.2) 0.0 x10^3/uL (0.0-0.2) Glucose (Fingerstick) 186 mg/dL (70-99) O2 Saturation 92 % (92-99) Arterial Blood pH 7.52 (7.35-7.45) Arterial Blood pCO2 at Patient Temp 34 mmHg (35-46) Arterial Blood pO2 at Patient Temp 63 mmHg (65-108) Arterial Blood HCO3 27 mmol/L (21-28) Arterial Blood Base Excess 4 mmol/L (-3-3) Oxyhemoglobin 91.1 % Methemoglobin 0.3 % (0.0-1.9) Carbon Monoxide, Quantitative 0.3 % (0.0-1.9) FiO2 40 Test 06/29/18 23:43 06/30/18 05:30 06/30/18 08:56 06/30/18 09:10 Glucose (Fingerstick) 185 mg/dL (70-99) 183 mg/dL (70-99) White Blood Count 8.2 x10^3/uL (4.0-11.0) Red Blood Count 3.96 x10^6/uL (3.50-5.40) Hemoglobin 11.5 g/dL (12.0-15.5) Hematocrit 34.6 % (36.0-47.0) Mean Corpuscular Volume 87 fL (79-100) Mean Corpuscular Hemoglobin 29 pg (25-35) Mean Corpuscular Hemoglobin Concent 33 g/dL (31-37) Red Cell Distribution Width 17.6 % (11.5-14.5) Platelet Count 250 x10^3/uL (140-400) Neutrophils (%) (Auto) 91 % (31-73) Lymphocytes (%) (Auto) 5 % (24-48) Monocytes (%) (Auto) 5 % (0-9) Eosinophils (%) (Auto) 0 % (0-3) Basophils (%) (Auto) 0 % (0-3) Neutrophils # (Auto) 7.5 x10^3uL (1.8-7.7) Lymphocytes # (Auto) 0.4 x10^3/uL (1.0-4.8) Monocytes # (Auto) 0.4 x10^3/uL (0.0-1.1) Eosinophils # (Auto) 0.0 x10^3/uL (0.0-0.7) Basophils # (Auto) 0.0 x10^3/uL (0.0-0.2) Sodium Level 125 mmol/L (136-145) Potassium Level 4.0 mmol/L (3.5-5.1) Chloride Level 89 mmol/L (98-107) Carbon Dioxide Level 28 mmol/L (21-32) Anion Gap 8 (6-14) Blood Urea Nitrogen 14 mg/dL (7-20) Creatinine 0.8 mg/dL (0.6-1.0) Estimated GFR (Cockcroft-Gault) 70.5 Glucose Level 195 mg/dL (70-99) Calcium Level 8.1 mg/dL (8.5-10.1) O2 Saturation 93 % (92-99) Arterial Blood pH 7.48 (7.35-7.45) Arterial Blood pCO2 at Patient Temp 40 mmHg (35-46) Arterial Blood pO2 at Patient Temp 69 mmHg (65-108) Arterial Blood HCO3 29 mmol/L (21-28) Arterial Blood Base Excess 5 mmol/L (-3-3) FiO2 40 Test 06/30/18 12:08 06/30/18 20:33 07/01/18 06:00 07/01/18 07:00 Glucose (Fingerstick) 181 mg/dL (70-99) 147 mg/dL (70-99) White Blood Count 4.5 x10^3/uL (4.0-11.0) Red Blood Count 3.45 x10^6/uL (3.50-5.40) Hemoglobin 10.2 g/dL (12.0-15.5) Hematocrit 30.3 % (36.0-47.0) Mean Corpuscular Volume 88 fL (79-100) Mean Corpuscular Hemoglobin 30 pg (25-35) Mean Corpuscular Hemoglobin Concent 34 g/dL (31-37) Red Cell Distribution Width 17.4 % (11.5-14.5) Platelet Count 183 x10^3/uL (140-400) Neutrophils (%) (Auto) 88 % (31-73) Lymphocytes (%) (Auto) 5 % (24-48) Monocytes (%) (Auto) 7 % (0-9) Eosinophils (%) (Auto) 0 % (0-3) Basophils (%) (Auto) 0 % (0-3) Neutrophils # (Auto) 4.0 x10^3uL (1.8-7.7) Lymphocytes # (Auto) 0.2 x10^3/uL (1.0-4.8) Monocytes # (Auto) 0.3 x10^3/uL (0.0-1.1) Eosinophils # (Auto) 0.0 x10^3/uL (0.0-0.7) Basophils # (Auto) 0.0 x10^3/uL (0.0-0.2) Sodium Level 132 mmol/L (136-145) Potassium Level 4.0 mmol/L (3.5-5.1) Chloride Level 95 mmol/L (98-107) Carbon Dioxide Level 31 mmol/L (21-32) Anion Gap 6 (6-14) Blood Urea Nitrogen 15 mg/dL (7-20) Creatinine 1.0 mg/dL (0.6-1.0) Estimated GFR (Cockcroft-Gault) 54.5 Glucose Level 192 mg/dL (70-99) Calcium Level 8.0 mg/dL (8.5-10.1) O2 Saturation 91 % (92-99) Arterial Blood pH 7.49 (7.35-7.45) Arterial Blood pCO2 at Patient Temp 37 mmHg (35-46) Arterial Blood pO2 at Patient Temp 64 mmHg (65-108) Arterial Blood HCO3 28 mmol/L (21-28) Arterial Blood Base Excess 4 mmol/L (-3-3) Test 07/01/18 07:12 Glucose (Fingerstick) 169 mg/dL (70-99) Laboratory Tests Test 06/30/18 12:08 06/30/18 20:33 07/01/18 06:00 07/01/18 07:00 Glucose (Fingerstick) 181 mg/dL (70-99) 147 mg/dL (70-99) White Blood Count 4.5 x10^3/uL (4.0-11.0) Red Blood Count 3.45 x10^6/uL (3.50-5.40) Hemoglobin 10.2 g/dL (12.0-15.5) Hematocrit 30.3 % (36.0-47.0) Mean Corpuscular Volume 88 fL (79-100) Mean Corpuscular Hemoglobin 30 pg (25-35) Mean Corpuscular Hemoglobin Concent 34 g/dL (31-37) Red Cell Distribution Width 17.4 % (11.5-14.5) Platelet Count 183 x10^3/uL (140-400) Neutrophils (%) (Auto) 88 % (31-73) Lymphocytes (%) (Auto) 5 % (24-48) Monocytes (%) (Auto) 7 % (0-9) Eosinophils (%) (Auto) 0 % (0-3) Basophils (%) (Auto) 0 % (0-3) Neutrophils # (Auto) 4.0 x10^3uL (1.8-7.7) Lymphocytes # (Auto) 0.2 x10^3/uL (1.0-4.8) Monocytes # (Auto) 0.3 x10^3/uL (0.0-1.1) Eosinophils # (Auto) 0.0 x10^3/uL (0.0-0.7) Basophils # (Auto) 0.0 x10^3/uL (0.0-0.2) Sodium Level 132 mmol/L (136-145) Potassium Level 4.0 mmol/L (3.5-5.1) Chloride Level 95 mmol/L (98-107) Carbon Dioxide Level 31 mmol/L (21-32) Anion Gap 6 (6-14) Blood Urea Nitrogen 15 mg/dL (7-20) Creatinine 1.0 mg/dL (0.6-1.0) Estimated GFR (Cockcroft-Gault) 54.5 Glucose Level 192 mg/dL (70-99) Calcium Level 8.0 mg/dL (8.5-10.1) O2 Saturation 91 % (92-99) Arterial Blood pH 7.49 (7.35-7.45) Arterial Blood pCO2 at Patient Temp 37 mmHg (35-46) Arterial Blood pO2 at Patient Temp 64 mmHg (65-108) Arterial Blood HCO3 28 mmol/L (21-28) Arterial Blood Base Excess 4 mmol/L (-3-3) Test 07/01/18 07:12 Glucose (Fingerstick) 169 mg/dL (70-99) Medications Active Scripts Medications Dose Route/Sig Max Daily Dose Days Date Category Clindamycin Hcl 300 Mg Capsule 300 Mg PO QID 7 06/24/18 Rx Lasix (Furosemide) 40 Mg Tablet 40 Mg PO BID 14 06/24/18 Rx Aldactone (Spironolactone) 25 Mg Tablet 25 Mg PO DAILY MDD 1 06/24/18 Rx Lisinopril 5 Mg Tablet 2.5 Mg PO DAILY MDD 1 06/24/18 Rx Proair Hfa (Albuterol Sulfate) 8.5 Gm Hfa.aer.ad 2.5 Mg NEB PRN Q4HRS PRN MDD 1 06/24/18 Rx Aspir-Low (Aspirin) 81 Mg Tablet.dr 1 Tab PO DAILY 06/18/18 Reported Triamterene-Hctz 37.5-25 Mg Cp (Triamterene/Hydrochlorothiazid) 1 Each Capsule 1 Cap PO DAILY 06/18/18 Reported Synthroid (Levothyroxine Sodium) 88 Mcg Tablet 1 Tab PO DAILY 06/18/18 Reported Latanoprost 2.5 Ml Drops 1 Drop EACHEYE QHS 06/18/18 Reported Comments CXR 07/01 ongoing CHF Impression . 1. Acute hypoxic respiratory failure secondary to recent cardiac and vascular intervention and cardiogenic shock. 2. Status post cardiac catheterization with left main stent placement and successful Impella. 3. The patient with persistent bleeding from the left groin post angio seal. The patient lost pulses and had emergent vascular intervention. 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 Exploration of left common femoral artery with repair. 4. Underlying chronic obstructive pulmonary disease with [id number] tobacco history. 5. Cardiogenic shock with congestive heart failure. 6. History of severe cardiomyopathy and severe diastolic dysfunction and secondary pulmonary hypertension. Plan . 1. Continue with present assist control mode 2. off sedation. Once awake, CPAP trial 3. Wean vasopressor per Cardiology. 4. Bronchodilators. 5. Follow Vascular's recommendation. 6. Follow Cardiology's recommendations. 7. Continue present steroids with gradual taper. 8. Monitor the left foot pulses closely. 9. Monitor hemoglobin. 10. Monitor sodium. 11. Discussed with RN and RT. We will follow along with you. 12. Diuresis per cardiology EB DELA CRUZ MD Jul 01, 2018 10:39
[2018-07-01] MEDS ORDERED: ASPIRIN ENTERIC COATED 81 MG TABLET.DR. PO PRN (10:45)
--- NOTE | 2018-07-01 11:59 | PDOC ---
Provider Note Provider Note S: Pt seen by myself and Dr. Perrin Pt underwent emergent left common femoral, SFA and external iliac endarterectomy with bovine pericardial patch angioplasty 2 days ago due to occlusion of left common femoral artery following cath procedure with limb threatening ischemia. Prior to heart cath procedure (angioplasty with stent to left main and LAD) she underwent bilateral common iliac kissing stents and aortic stent placement by Dr. Perrin. She is still intubated today per cardiology. O: Sedated on vent. Off phenylephrine, still on milrinone Right leg without, foot warm, doppler signals present Left groin dressing clean, dry and intact. Lower leg erythema anteriorly improving. Left foot warm to touch, DP and PT doppler signals present. Bilateral pedal edema. CXR reviewed, sign pleural effusion on right, likely left as well. Consistent CHF A/P: POD#2 of emergent left common femoral, SFA and external iliac endarterectomy with bovine pericardial patch angioplasty due to occlusion with limb threatening ischemia following Angioplasty with stent to left main and LAD, also underwent bilateral common iliac kissing stents and aortic stent placement yesterday. - Pt on vent, off sedation, phenylephrine weaned, still on milrinone - Rooke boot to left leg as tolerated. Discussed with RN. Circulation in foot will continue to improve as weaned off pressors. - CHF, pleural effusions on CXR, pt getting diuretics - monitor Mg and K+ closely - cont aspirin and plavix - Other post op care per cardiology GABRIELLE ORTIZ Jul 01, 2018 11:59
[2018-07-01] MEDS: fentaNYL PF VIAL 100 MCG/2 ML VIAL IV PRN ×2 (12:09→14:48)
[2018-07-01] MEDS ORDERED: ATROPINE 0.5 MG/5 ML DISP.SYRINGE. IV PRN (13:30)
[2018-07-01] MEDS ORDERED: IV NORMAL SALINE 500ML BAG 500 ML IV PRN (13:30)
[2018-07-01] MEDS ORDERED: fentaNYL PF VIAL 100 MCG/2 ML VIAL IV PRN ×2 (13:30)
--- NOTE | 2018-07-01 13:49 | PDOC ---
EKTA NOLASCO ADAPTED PHYSICAL EDUCATION AIDE 07/01/18 1349: CARDIO Progress Notes Date and Time Date of Service 07/01/18 Time of Evaluation 1230 Subjective Subjective: Other (awake- starting to follow commands) Vitals Vitals Vital Signs Date Time Temp Pulse Resp B/P (MAP) Pulse Ox O2 Delivery O2 Flow Rate FiO2 07/01/18 13:25 99 Ventilator 07/01/18 13:18 3.0 07/01/18 12:00 86 78/45 (56) 07/01/18 06:00 18 07/01/18 04:00 99.4 99.4 Weight Weight [ ] Input and Output Intake and Output Intake and Output 07/01/18 06:59 Intake Total 572 ml Output Total 2550 ml Balance -1978 ml IV Total 572 ml Output Urine Total 2520 ml Other 30 ml Laboratory Labs Laboratory Tests Test 06/30/18 20:33 07/01/18 06:00 07/01/18 07:00 07/01/18 07:12 Glucose (Fingerstick) 147 mg/dL (70-99) 169 mg/dL (70-99) White Blood Count 4.5 x10^3/uL (4.0-11.0) Red Blood Count 3.45 x10^6/uL (3.50-5.40) Hemoglobin 10.2 g/dL (12.0-15.5) Hematocrit 30.3 % (36.0-47.0) Mean Corpuscular Volume 88 fL (79-100) Mean Corpuscular Hemoglobin 30 pg (25-35) Mean Corpuscular Hemoglobin Concent 34 g/dL (31-37) Red Cell Distribution Width 17.4 % (11.5-14.5) Platelet Count 183 x10^3/uL (140-400) Neutrophils (%) (Auto) 88 % (31-73) Lymphocytes (%) (Auto) 5 % (24-48) Monocytes (%) (Auto) 7 % (0-9) Eosinophils (%) (Auto) 0 % (0-3) Basophils (%) (Auto) 0 % (0-3) Neutrophils # (Auto) 4.0 x10^3uL (1.8-7.7) Lymphocytes # (Auto) 0.2 x10^3/uL (1.0-4.8) Monocytes # (Auto) 0.3 x10^3/uL (0.0-1.1) Eosinophils # (Auto) 0.0 x10^3/uL (0.0-0.7) Basophils # (Auto) 0.0 x10^3/uL (0.0-0.2) Sodium Level 132 mmol/L (136-145) Potassium Level 4.0 mmol/L (3.5-5.1) Chloride Level 95 mmol/L (98-107) Carbon Dioxide Level 31 mmol/L (21-32) Anion Gap 6 (6-14) Blood Urea Nitrogen 15 mg/dL (7-20) Creatinine 1.0 mg/dL (0.6-1.0) Estimated GFR (Cockcroft-Gault) 54.5 Glucose Level 192 mg/dL (70-99) Calcium Level 8.0 mg/dL (8.5-10.1) Magnesium Level 1.9 mg/dL (1.8-2.4) O2 Saturation 91 % (92-99) Arterial Blood pH 7.49 (7.35-7.45) Arterial Blood pCO2 at Patient Temp 37 mmHg (35-46) Arterial Blood pO2 at Patient Temp 64 mmHg (65-108) Arterial Blood HCO3 28 mmol/L (21-28) Arterial Blood Base Excess 4 mmol/L (-3-3) Physical Exam HEENT: Neck Supple W Full Motion Chest: Symmetric LUNGS: Other (dimiished bases) Heart: S1S2, RRR (SR) Abdomen: Soft N/T, Other Extremities: Other (1-2+ bilateral LE edmea. LLE erythema) Neurology: alert, other (beginning to follow commands) Assessment Assessment 1. 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 ICM LVEF 20-25% 3. CAD s/p PCI to LM/LAD 4. Severe PAD; s/p aorto/iliac stents and LCFA, SFA, and external iliac endarterectomy with patch 5. Cardiogenic shock; pressor support off. 6. Acute respiratory failure; s/p intubation. Off sedation 7. Polyvalvular disease; moderate , MR, and TR 8. DM, II Recommendations Continue milrinone Hold Lasix this evening. Convert to daily dosing Keep overall fluid balance negative Extubate tomorrow as able. ALYSSIA PASCUAL MD 07/01/18 1829: CARDIO Progress Notes Plan Plan Patient seen and examined. Agree with above nurse practitioner note. Overall, the patient is improving quite well. No significant lower extremity arterial issues. She is opening her eyes and responding to commands. We will plan for extubation tomorrow with sedation off completely. Supportive care. Blood pressures are stable. Only on milrinone therapy which she was on prior to her procedures. EKTA NOLASCO APRN Jul 01, 2018 13:49 ALYSSIA PASCUAL MD Jul 01, 2018 18:29
--- NOTE | 2018-07-01 14:46 | NUR ---
SS following up with discharge planning. Pt currently in ICU post surgery. Pt screened at [facility]. PT/OT to reevaluate once medically stable. SS will continue to follow for discharge planning.
[2018-07-01] MEDS: DEXMEDETOMIDINE 200 MCG in IV NORMAL SALINE 50ML 48 ML IV PRN ×2 (16:31→20:47)
--- NOTE | 2018-07-01 18:26 | NUR ---
Patient art line removed per cardiology. sedation and pain management medications stopped in attempt to wean. Patient follows commands after redirecting. Patient given PRN fentanyl for pain management. Patient became restless and started kicking legs and shaking arms. Due to patient having recent right groin cath, left groin surgery site, and right radial art line, patient was started on low dose precedex to protect sites. Dr Solano and Chirag aware. Patient is to attempt to weaning trial again tomorrow. Precedex was requested to be turned off at 0600 to allow patient to be successful with weaning trial. Patient left lag has stronger pulses this am. RN has used warming blanket PRN to keep warm, and attempted to keep rooke boot on but patient would continue to kick boot off. Report given to night RN regarding medications and plan of care.
[2018-07-01] MEDS: INSULIN GLARGINE 300 UNITS/3 ML INSULN.PEN. SQ SCH (20:45)
[2018-07-01] MEDS: ATORVASTATIN CALCIUM 40 MG TABLET. PO SCH (20:46)
[2018-07-01] MEDS: LATANOPROST 0.005% OPHTH SOLUTION 2.5ML BOTTLE. OU SCH (20:46)
[2018-07-01] MEDS: MILRINONE 20MG/100ML PREMIX 100 ML IV PRN (20:46)
[2018-07-01] MEDS ORDERED: CHLORHEXIDINE 0.12% 15 ML MOUTHWASH. MM SCH (21:00)
[2018-07-02] VITALS (23 sets, daily range): BP systolic 81–132; BP diastolic 44–65
[2018-07-02] MEDS: DEXMEDETOMIDINE 200 MCG in IV NORMAL SALINE 50ML 48 ML IV PRN (01:52)
[2018-07-02] MEDS: IPRATRPIUM/ALBUTEROL 0.5/2.5MG 3 ML NEBU. NEB SCH ×6 (03:19→23:50)
[2018-07-02] MEDS: methylPREDNISolone SOD SUCC PF 40 MG/ML VIAL. IV SCH ×3 (05:57→21:26)
[2018-07-02 08:15] LABS: BASE EXCESS ABG 4 mmol/L (-3-3); HCO3 ABG 28 mmol/L (21-28); PCO2 ABG 38 mmHg (35-46); PO2 ABG 74 mmHg (65-108); SAT O2 ABG 94 % (92-99)
[2018-07-02] MEDS: POTASSIUM CHLORIDE 20 MEQ/15 ML ORAL LIQUID. PEG SCH (08:43)
[2018-07-02] MEDS: LEVOTHYROXINE 88 MCG TABLET PO SCH (08:43)
[2018-07-02] MEDS: LACTOBACILLUS RHAMNOSUS GG 1 CAPSULE. PO SCH ×2 (08:44→21:28)
[2018-07-02] MEDS: CLOPIDOGREL BISULFATE 75 MG TABLET PO SCH (08:44)
[2018-07-02] MEDS: SPIRONOLACTONE 25 MG TABLET PO SCH (08:44)
[2018-07-02] MEDS: FUROSEMIDE 40 MG/4 ML VIAL. IV SCH (08:45)
[2018-07-02] MEDS: POTASSIUM CHLORIDE 20 MEQ TABLET.ER. PO SCH (08:45)
[2018-07-02] MEDS: ASPIRIN RECTAL 300 MG SUPP. PR SCH (08:47)
[2018-07-02] MEDS: HEPARIN for SUB-Q USE 5,000 UNIT/ML VIAL. SQ SCH ×2 (08:52→21:38)
[2018-07-02] MEDS: INSULIN LISPRO 300 UNITS/3 ML INSULN.PEN. SQ SCH ×3 (08:52→18:09)
[2018-07-02] MEDS: LISINOPRIL 5 MG TABLET. PO SCH (08:56)
[2018-07-02] MEDS: CHLORHEXIDINE 0.12% 15 ML MOUTHWASH. MM SCH ×2 (09:06→21:47)
--- NOTE | 2018-07-02 09:54 | PDOC ---
PULMONARY PROGRESS NOTES Subjective awake, on CPAP trial doing well Vitals Vital Signs Date Time Temp Pulse Resp B/P (MAP) Pulse Ox O2 Delivery O2 Flow Rate FiO2 07/02/18 08:56 106/54 07/02/18 07:39 100 Ventilator 07/02/18 06:00 68 14 07/02/18 04:00 97.5 97.5 07/01/18 15:37 3.0 General: Alert, No acute distress Lungs: Clear, Other (decrease bs) Cardiovascular: S1 Abdomen: Soft Neuro Exam: Alert Extremities: Other (trace edema) Labs Laboratory Tests Test 06/30/18 12:08 06/30/18 20:33 07/01/18 06:00 07/01/18 07:00 Glucose (Fingerstick) 181 mg/dL (70-99) 147 mg/dL (70-99) White Blood Count 4.5 x10^3/uL (4.0-11.0) Red Blood Count 3.45 x10^6/uL (3.50-5.40) Hemoglobin 10.2 g/dL (12.0-15.5) Hematocrit 30.3 % (36.0-47.0) Mean Corpuscular Volume 88 fL (79-100) Mean Corpuscular Hemoglobin 30 pg (25-35) Mean Corpuscular Hemoglobin Concent 34 g/dL (31-37) Red Cell Distribution Width 17.4 % (11.5-14.5) Platelet Count 183 x10^3/uL (140-400) Neutrophils (%) (Auto) 88 % (31-73) Lymphocytes (%) (Auto) 5 % (24-48) Monocytes (%) (Auto) 7 % (0-9) Eosinophils (%) (Auto) 0 % (0-3) Basophils (%) (Auto) 0 % (0-3) Neutrophils # (Auto) 4.0 x10^3uL (1.8-7.7) Lymphocytes # (Auto) 0.2 x10^3/uL (1.0-4.8) Monocytes # (Auto) 0.3 x10^3/uL (0.0-1.1) Eosinophils # (Auto) 0.0 x10^3/uL (0.0-0.7) Basophils # (Auto) 0.0 x10^3/uL (0.0-0.2) Sodium Level 132 mmol/L (136-145) Potassium Level 4.0 mmol/L (3.5-5.1) Chloride Level 95 mmol/L (98-107) Carbon Dioxide Level 31 mmol/L (21-32) Anion Gap 6 (6-14) Blood Urea Nitrogen 15 mg/dL (7-20) Creatinine 1.0 mg/dL (0.6-1.0) Estimated GFR (Cockcroft-Gault) 54.5 Glucose Level 192 mg/dL (70-99) Calcium Level 8.0 mg/dL (8.5-10.1) Magnesium Level 1.9 mg/dL (1.8-2.4) O2 Saturation 91 % (92-99) Arterial Blood pH 7.49 (7.35-7.45) Arterial Blood pCO2 at Patient Temp 37 mmHg (35-46) Arterial Blood pO2 at Patient Temp 64 mmHg (65-108) Arterial Blood HCO3 28 mmol/L (21-28) Arterial Blood Base Excess 4 mmol/L (-3-3) Test 07/01/18 07:12 07/01/18 17:17 07/01/18 20:42 07/02/18 08:50 Glucose (Fingerstick) 169 mg/dL (70-99) 208 mg/dL (70-99) 210 mg/dL (70-99) 218 mg/dL (70-99) Laboratory Tests Test 07/01/18 17:17 07/01/18 20:42 07/02/18 08:50 Glucose (Fingerstick) 208 mg/dL (70-99) 210 mg/dL (70-99) 218 mg/dL (70-99) Medications Active Scripts Medications Dose Route/Sig Max Daily Dose Days Date Category Clindamycin Hcl 300 Mg Capsule 300 Mg PO QID 7 06/24/18 Rx Lasix (Furosemide) 40 Mg Tablet 40 Mg PO BID 14 06/24/18 Rx Aldactone (Spironolactone) 25 Mg Tablet 25 Mg PO DAILY MDD 1 06/24/18 Rx Lisinopril 5 Mg Tablet 2.5 Mg PO DAILY MDD 1 06/24/18 Rx Proair Hfa (Albuterol Sulfate) 8.5 Gm Hfa.aer.ad 2.5 Mg NEB PRN Q4HRS PRN MDD 1 06/24/18 Rx Aspir-Low (Aspirin) 81 Mg Tablet.dr 1 Tab PO DAILY 06/18/18 Reported Triamterene-Hctz 37.5-25 Mg Cp (Triamterene/Hydrochlorothiazid) 1 Each Capsule 1 Cap PO DAILY 06/18/18 Reported Synthroid (Levothyroxine Sodium) 88 Mcg Tablet 1 Tab PO DAILY 06/18/18 Reported Latanoprost 2.5 Ml Drops 1 Drop EACHEYE QHS 06/18/18 Reported Comments CXR 07/01 ongoing CHF Impression . 1. Acute hypoxic respiratory failure secondary to recent cardiac and vascular intervention and cardiogenic shock. Doing well on CPAP, ABG adequate. will proceed with extubation 2. Status post cardiac catheterization with left main stent placement and successful Impella. 3. The patient with persistent bleeding from the left groin post angio seal. The patient lost pulses and had emergent vascular intervention. 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 Exploration of left common femoral artery with repair. 4. Underlying chronic obstructive pulmonary disease with [id number] tobacco history. 5. Cardiogenic shock with congestive heart failure. 6. History of severe cardiomyopathy and severe diastolic dysfunction and secondary pulmonary hypertension. Plan . 1. Proceed with extubation 2. f/u CXR 3. off vasopressor per Cardiology. 4. Bronchodilators. 5. Follow Vascular's recommendation. 6. Follow Cardiology's recommendations. 7. Continue present steroids with gradual taper. 9. Monitor hemoglobin. 10. Monitor sodium. 11. Discussed with RN and RT. 12. Diuresis per cardiology EB DELA CRUZ MD Jul 02, 2018 09:54
--- NOTE | 2018-07-02 09:56 | PDOC ---
PROGRESS NOTES Chief Complaint Chief Complaint Triple vessel Disease by [facility] 06/22/18 Severe ischemic CM with EF 30% and severe left main dz Severe PAD with 80% diffuse infrarenal stenosis, 95% stenosis at aortic bifurcation. Acute on chronic CHF AECOPD/pulmonary HTN LE edema more to RLE with small superficial right posterior ulcer. PAD, poor pulses - OP arteriogram Hypothyroidism TSH 5 with T4 at goal on synthroid constipated - bowel regimen Hypokalemia . corrected Morbid obesity with likely GÓMEZ Severe onychomycoses DM2 - A1c 7.9 History of Present Illness History of Present Illness POD 3 S/p PCI of LAD, aortoiliac interventions and infrarenal aorta DBX angioplasty/stent today by [facility] sx and cards. Had to return to OR for pulselessness in RLE 06/29 overnight, she has recovered well, still intubated, sheath with a-line still in place. Still intubated, no vent abnormalities BP better, labs pending. Right IJ CVC placed for pressor support. A-line out. On vent wean currently, follows commands, nods yes to removing vent today. Denies CP or SOB Plan: Check CBC and BMP today Monitor UOP Vent per pulm - hopefully extubate today pending ABG results on vent wean Vitals Vitals Vital Signs Date Time Temp Pulse Resp B/P (MAP) Pulse Ox O2 Delivery O2 Flow Rate FiO2 07/02/18 08:56 106/54 07/02/18 07:39 100 Ventilator 07/02/18 06:00 68 14 07/02/18 04:00 97.5 97.5 07/01/18 15:37 3.0 Physical Exam General: No acute distress, Other (Sedated, intubated) Heart: Regular rate, Normal S1, Normal S2 Lungs: Clear, Other (decrease bs) Abdomen: Normal bowel sounds, Soft Extremities: Other (edema) Skin: Other Labs LABS Laboratory Tests Test 07/01/18 17:17 07/01/18 20:42 07/02/18 08:50 Glucose (Fingerstick) 208 mg/dL (70-99) 210 mg/dL (70-99) 218 mg/dL (70-99) Assessment and Plan Assessmemt and Plan Problems Medical Problems: (1) Congestive heart failure Status: Acute Comment Review of Relevant I have reviewed the following items rosangela (where applicable) has been applied. Labs Laboratory Tests Test 06/30/18 12:08 06/30/18 20:33 07/01/18 06:00 07/01/18 07:00 Glucose (Fingerstick) 181 mg/dL (70-99) 147 mg/dL (70-99) White Blood Count 4.5 x10^3/uL (4.0-11.0) Red Blood Count 3.45 x10^6/uL (3.50-5.40) Hemoglobin 10.2 g/dL (12.0-15.5) Hematocrit 30.3 % (36.0-47.0) Mean Corpuscular Volume 88 fL (79-100) Mean Corpuscular Hemoglobin 30 pg (25-35) Mean Corpuscular Hemoglobin Concent 34 g/dL (31-37) Red Cell Distribution Width 17.4 % (11.5-14.5) Platelet Count 183 x10^3/uL (140-400) Neutrophils (%) (Auto) 88 % (31-73) Lymphocytes (%) (Auto) 5 % (24-48) Monocytes (%) (Auto) 7 % (0-9) Eosinophils (%) (Auto) 0 % (0-3) Basophils (%) (Auto) 0 % (0-3) Neutrophils # (Auto) 4.0 x10^3uL (1.8-7.7) Lymphocytes # (Auto) 0.2 x10^3/uL (1.0-4.8) Monocytes # (Auto) 0.3 x10^3/uL (0.0-1.1) Eosinophils # (Auto) 0.0 x10^3/uL (0.0-0.7) Basophils # (Auto) 0.0 x10^3/uL (0.0-0.2) Sodium Level 132 mmol/L (136-145) Potassium Level 4.0 mmol/L (3.5-5.1) Chloride Level 95 mmol/L (98-107) Carbon Dioxide Level 31 mmol/L (21-32) Anion Gap 6 (6-14) Blood Urea Nitrogen 15 mg/dL (7-20) Creatinine 1.0 mg/dL (0.6-1.0) Estimated GFR (Cockcroft-Gault) 54.5 Glucose Level 192 mg/dL (70-99) Calcium Level 8.0 mg/dL (8.5-10.1) Magnesium Level 1.9 mg/dL (1.8-2.4) O2 Saturation 91 % (92-99) Arterial Blood pH 7.49 (7.35-7.45) Arterial Blood pCO2 at Patient Temp 37 mmHg (35-46) Arterial Blood pO2 at Patient Temp 64 mmHg (65-108) Arterial Blood HCO3 28 mmol/L (21-28) Arterial Blood Base Excess 4 mmol/L (-3-3) Test 07/01/18 07:12 07/01/18 17:17 07/01/18 20:42 07/02/18 08:50 Glucose (Fingerstick) 169 mg/dL (70-99) 208 mg/dL (70-99) 210 mg/dL (70-99) 218 mg/dL (70-99) Laboratory Tests Test 07/01/18 17:17 07/01/18 20:42 07/02/18 08:50 Glucose (Fingerstick) 208 mg/dL (70-99) 210 mg/dL (70-99) 218 mg/dL (70-99) Medications Current Medications Furosemide (Lasix) 40 mg 1X ONCE IVP Last administered on 06/18/18 14:59; Start 06/18/18 at 14:00; Stop 06/18/18 at 14:47; Status DC Aspirin (Children'S Aspirin) 324 mg 1X ONCE PO Last administered on 06/18/18at 14:59; Start 06/18/18 at 14:00; Stop 06/18/18 at 14:47; Status DC Potassium Chloride (KCl Oral Soln) 40 meq 1X ONCE PO Last administered on at 14:59; Start 06/18/18 at 15:00; Stop 06/18/18 at 15:01; Status DC Furosemide (Lasix) 40 mg DAILY IVP ; Start 06/19/18 at 09:00; Stop 06/19/18 at 09: 00; Status DC Furosemide (Lasix) 40 mg [id number] IVP ; Start 06/19/18 at 09:00; Stop 06/19/18 at 09: 00; Status DC Lisinopril (Prinivil) 2.5 mg DAILY PO Last administered on 07/02/18at 08:56; Start 06/19/18 at 09:00 Furosemide (Lasix) 40 mg [id number] IV Last administered on 07/01/18 16:09; Start 06/18/18 at 16:00; Stop 07/01/18 at 17:45; Status DC Spironolactone (Aldactone) 25 mg DAILY PO Last administered on 07/02/18 08:44 ; Start 06/19/18 at 09:00 Heparin Sodium (Porcine) (Heparin Sodium) 5,000 unit Q12HR SQ Last administered on 07/02/18 08:52; Start 06/18/18 at 16:00 Sodium Chloride (Normal Saline Flush) 3 ml QSHIFT PRN IV AFTER MEDS AND BLOOD DRAWS; Start 06/18/18 at 16:00 Ondansetron HCl (Zofran) 4 mg PRN Q4HRS PRN IV NAUSEA/VOMITING; Start 06/18/18 at 16:00 Acetaminophen (Tylenol) 650 mg PRN Q4HRS PRN PO TEMP OVER 100.4F OR MILD PAIN Last administered on 06/28/18 20:56; Start 06/18/18 at 16:00 Sodium Monofluorophosphate (Fleet Adult) 133 ml PRN DAILY PRN DE CONSTIPATION; Start 06/18/18 at 16:00 Diphenhydramine HCl (Benadryl) 25 mg PRN Q4HRS PRN IVP ITCHING Last administered on 06/28/18 20:56; Start 06/18/18 at 16:00 Docusate Sodium (Colace) 100 mg PRN BID PRN PO CONSTIPATION Last administered on 06/27/18 08:41; Start 06/18/18 at 16:00 Albuterol Sulfate (Ventolin Neb Soln) 2.5 mg PRN Q4HRS PRN NEB SHORTNESS OF BREATH; Start 06/18/18 at 16:00 Albuterol/ Ipratropium (Duoneb) 3 ml Q4HRS NEB Last administered on 07/02/18 07:39; Start 06/18/18 at 16:00 Aspirin (Ecotrin) 81 mg DAILY08 PO Last administered on 06/28/18 10:14; Start 06/19/18 at 08:00; Stop 07/01/18 at 10:41; Status DC Levothyroxine Sodium (Synthroid) 88 mcg DAILY08 PO Last administered on 08:43; Start 06/19/18 at 08:00 Latanoprost (Xalatan) 1 drop QHS OU Last administered on 07/01/18at 20:46; Start 06/18/18 at 21:00 Potassium Chloride (KCl Oral Soln) 40 meq 1X ONCE PO Last administered on at 13:43; Start 06/19/18 at 13:00; Stop 06/19/18 at 13:01; Status DC Insulin Glargine (Lantus) 5 units QHS SQ Last administered on 07/01/18at 20:45; Start 06/19/18 at 21:00 Insulin Human Lispro (HumaLOG) 0-5 UNITS TIDWMEALS SQ Last administered on 07/02at 08:52; Start 06/19/18 at 12:30 Dextrose (Dextrose 50%-Water Syringe) 12.5 gm PRN Q15MIN PRN IV SEE COMMENTS; Start 06/19/18 at 12:15 Clindamycin Phosphate 50 ml @ 100 mls/hr Q8HRS IV Last administered on at 14:17; Start 06/21/18 at 10:00; Stop 06/24/18 at 15:00; Status DC Lactobacillus Rhamnosus (Culturelle) 1 cap BID PO Last administered on at 08:44; Start 06/21/18 at 21:00 Milrinone Lactate/ Dextrose 100 ml @ 4.022 mls/ hr CONT PRN IV SEE I/O RECORD Last administered on 07/01/18at 20:46; Start 06/22/18 at 13:00 Iodixanol (Visipaque 320) 100 ml STK-MED ONCE .ROUTE ; Start 06/23/18 at 06:35; Stop 06/23/18 at 06:36; Status DC Lidocaine HCl (Lidocaine 1% 20ml Vial) 20 ml STK-MED ONCE .ROUTE ; Start at 06:35; Stop 06/23/18 at 06:36; Status DC Heparin Sodium/ Sodium Chloride 1,500 ml @ As Directed STK-MED ONCE .ROUTE ; Start 06/23/18 at 06:35; Stop 06/23/18 at 06:36; Status DC Iodixanol (Visipaque 320) 100 ml STK-MED ONCE .ROUTE ; Start 06/23/18 at 07:26; Stop 06/23/18 at 07:27; Status DC Midazolam HCl (Versed) 2 mg STK-MED ONCE .ROUTE ; Start 06/23/18 at 07:30; Stop 06/23/18 at 07:31; Status DC Fentanyl Citrate (Fentanyl 2ml Vial) 100 mcg STK-MED ONCE .ROUTE ; Start at 07:30; Stop 06/23/18 at 07:31; Status DC Verapamil HCl (Verapamil) 5 mg STK-MED ONCE .ROUTE ; Start 06/23/18 at 07:30; Stop 06/23/18 at 07:31; Status DC Heparin Sodium (Porcine) (Heparin Sodium) 10,000 unit STK-MED ONCE .ROUTE ; Start 06/23/18 at 07:30; Stop 06/23/18 at 07:31; Status DC Nitroglycerin (Nitroglycerin) 200 mcg STK-MED ONCE .ROUTE ; Start 06/23/18 at 07 :30; Stop 06/23/18 at 07:31; Status DC Nitroglycerin (Nitroglycerin) 200 mcg 1X ONCE IART Last administered on at 08:20; Start 06/23/18 at 08:15; Stop 06/23/18 at 08:18; Status DC Verapamil HCl (Verapamil) 2.5 mg 1X ONCE IART Last administered on 06/23/18at 08:22; Start 06/23/18 at 08:15; Stop 06/23/18 at 08:18; Status DC Heparin Sodium (Porcine) (Heparin Sodium) 2,500 unit 1X ONCE IART Last administered on 06/23/18at 08:23; Start 06/23/18 at 08:15; Stop 06/23/18 at 08:18 ; Status DC Heparin Sodium/ Sodium Chloride (HEPARIN for ARTERIAL LINE FLUSH) 1,000 unit 1X ONCE IART Last administered on 06/23/18at 08:20; Start 06/23/18 at 08:15; Stop 06/23/18 at 08:18; Status DC Heparin Sodium/ Sodium Chloride (HEPARIN for ARTERIAL LINE FLUSH) 1,000 unit 1X ONCE IART Last administered on 06/23/18at 08:20; Start 06/23/18 at 08:15; Stop 06/23/18 at 08:18; Status DC Midazolam HCl (Versed) 1.5 mg 1X ONCE IV Last administered on 06/23/18at 08:21 ; Start 06/23/18 at 08:15; Stop 06/23/18 at 08:18; Status DC Fentanyl Citrate (Fentanyl 2ml Vial) 75 mcg 1X ONCE IV Last administered on 01/01at 08:22; Start 06/23/18 at 08:15; Stop 06/23/18 at 08:18; Status DC Iodixanol (Visipaque 320) 99 ml 1X ONCE IART Last administered on 06/23/18at 08 :20; Start 06/23/18 at 08:15; Stop 06/23/18 at 08:18; Status DC Lidocaine HCl (Lidocaine 1% 20ml Vial) 1 ml 1X ONCE INJ Last administered on at 08:20; Start 06/23/18 at 08:15; Stop 06/23/18 at 08:18; Status DC Info (CONTRAST GIVEN -- Rx MONITORING) 1 each PRN DAILY PRN MC SEE COMMENTS; Start 06/23/18 at 08:30; Stop 06/25/18 at 08:29; Status DC Sodium Chloride 250 ml @ 250 mls/hr 1X ONCE IV Last administered on at 11:07; Start 06/23/18 at 11:15; Stop 06/23/18 at 12:14; Status DC Furosemide (Lasix) 40 mg 1X ONCE IVP Last administered on 06/23/18at 20:46; Start 06/23/18 at 20:15; Stop 06/23/18 at 20:19; Status DC Magnesium Sulfate 50 ml @ 25 mls/hr 1X ONCE IV Last administered on 06/24/18at 14:13; Start 06/24/18 at 12:30; Stop 06/24/18 at 14:29; Status DC Potassium Chloride (Klor-Con) 40 meq 1X ONCE PO Last administered on at 14:14; Start 06/24/18 at 12:30; Stop 06/24/18 at 12:31; Status DC Clindamycin HCl (Cleocin) 300 mg QID PO Last administered on 06/28/18at 20:56; Start 06/24/18 at 21:00; Stop 06/29/18 at 15:41; Status DC Potassium Chloride (Klor-Con) 40 meq DAILY PO Last administered on 06/28/18at 10 :16; Start 06/25/18 at 11:15 Magnesium Sulfate 50 ml @ 25 mls/hr 1X ONCE IV Last administered on 06/25/18at 12:07; Start 06/25/18 at 11:15; Stop 06/25/18 at 13:14; Status DC Potassium Chloride (Klor-Con) 40 meq 1X ONCE PO Last administered on at 08:50; Start 06/26/18 at 07:45; Stop 06/26/18 at 07:50; Status DC Clopidogrel Bisulfate (Plavix) 300 mg 1X ONCE PO Last administered on at 13:10; Start 06/26/18 at 11:00; Stop 06/26/18 at 11:06; Status DC Clopidogrel Bisulfate (Plavix) 75 mg DAILYWBKFT PO Last administered on at 08:44; Start 06/27/18 at 08:00 Methylprednisolone Sodium Succinate (SOLU-Medrol 40MG VIAL) 40 mg Q8HRS IV Last administered on 07/02/18at 05:57; Start 06/27/18 at 09:15 Atorvastatin Calcium (Lipitor) 40 mg QHS PO Last administered on 07/01/18at 20: 46; Start 06/28/18 at 21:00 Heparin Sodium (Porcine) 5000 unit/Sodium Chloride 505 ml @ 505 mls/hr 1X ONCE IRR ; Start 06/29/18 at 06:00; Stop 06/29/18 at 06:59; Status DC Cefazolin Sodium/ Dextrose 50 ml @ 100 mls/hr 1X PREOP PRN IV on hold OR; Start 06/29/18 at 06:00; Stop 06/29/18 at 11:19; Status DC Ondansetron HCl (Zofran) 4 mg PRN Q6HRS PRN IV NAUSEA/VOMITING; Start 06/29/18 at 07:00; Stop 06/30/18 at 06:59; Status DC Fentanyl Citrate (Fentanyl 2ml Vial) 25 mcg PRN Q5MIN PRN IV MILD PAIN; Start 06/29/18 at 07:00; Stop 06/30/18 at 06:59; Status DC Fentanyl Citrate (Fentanyl 2ml Vial) 50 mcg PRN Q5MIN PRN IV MODERATE TO SEVERE PAIN; Start 06/29/18 at 07:00; Stop 06/30/18 at 06:59; Status DC Morphine Sulfate (Morphine Sulfate) 1 mg PRN Q10MIN PRN IV SEVERE PAIN; Start 06/29/18 at 07:00; Stop 06/30/18 at 06:59; Status DC Ringer's Solution 1,000 ml @ 30 mls/hr Q24H IV Last administered on 06/29/18at 10:12; Start 06/29/18 at 07:00; Stop 06/29/18 at 18:59; Status DC Lidocaine HCl (Xylocaine-Mpf 1% 2ml Vial) 2 ml PRN 1X PRN ID PRIOR TO IV START ; Start 06/29/18 at 07:00; Stop 06/30/18 at 06:59; Status DC Hydromorphone HCl (Dilaudid) 0.5 mg PRN Q10MIN PRN IV SEV PAIN, Second choice; Start 06/29/18 at 07:00; Stop 06/30/18 at 06:59; Status DC Prochlorperazine Edisylate (Compazine) 5 mg PACU PRN PRN IV NAUSEA, MRX1; Start 06/29/18 at 07:00; Stop 06/30/18 at 06:59; Status DC Bupivacaine HCl/ Epinephrine Bitart (Sensorcain-Mpf Epi 0.5%-1:133241) 30 ml STK -MED ONCE .ROUTE ; Start 06/29/18 at 05:59; Stop 06/29/18 at 06:59; Status DC Gelatin (Gelfoam Size 12-7mm) 1 each STK-MED ONCE .ROUTE ; Start 06/29/18 at 05 :59; Stop 06/29/18 at 06:59; Status DC Iohexol (Omnipaque 300 Mg/ml) 100 ml STK-MED ONCE .ROUTE ; Start 06/29/18 at 05: 59; Stop 06/29/18 at 07:00; Status DC Bupivacaine HCl (Sensorcaine Mpf 0.25%) 30 ml STK-MED ONCE .ROUTE ; Start at 05:59; Stop 06/29/18 at 07:00; Status DC Papaverine HCl 60 mg STK-MED ONCE .ROUTE ; Start 06/29/18 at 06:00; Stop at 07:01; Status DC Thrombin 20,000 unit STK-MED ONCE TP ; Start 06/29/18 at 06:00; Stop 06/29/18 at 07:01; Status DC Sodium Chloride (SODIUM CHLORIDE 20ml) 20 ml STK-MED ONCE IJ ; Start 06/29/18 at 09:46; Stop 06/29/18 at 09:47; Status DC Famotidine (Pepcid Vial) 20 mg STK-MED ONCE .ROUTE ; Start 06/29/18 at 09:46; Stop 06/29/18 at 09:47; Status DC Ondansetron HCl (Zofran) 4 mg STK-MED ONCE .ROUTE ; Start 06/29/18 at 09:46; Stop 06/29/18 at 09:47; Status DC Dexamethasone Sodium Phosphate (Decadron) 20 mg STK-MED ONCE .ROUTE ; Start at 09:46; Stop 06/29/18 at 09:47; Status DC Lidocaine HCl (Lidocaine Pf 2% Vial) 5 ml STK-MED ONCE .ROUTE ; Start 06/29/18 at 09:46; Stop 06/29/18 at 09:47; Status DC Etomidate (Amidate) 20 mg STK-MED ONCE IV ; Start 06/29/18 at 09:46; Stop at 09:47; Status DC Phenylephrine HCl (PHENYLEPHRINE in 0.9% NACL PF) 1 mg STK-MED ONCE IV ; Start 06/29/18 at 09:46; Stop 06/29/18 at 09:47; Status DC Fentanyl Citrate (Fentanyl 2ml Vial) 100 mcg STK-MED ONCE .ROUTE ; Start at 09:47; Stop 06/29/18 at 09:48; Status DC Hydromorphone HCl (Dilaudid) 2 mg STK-MED ONCE .ROUTE ; Start 06/29/18 at 09:47 ; Stop 06/29/18 at 09:48; Status DC Glycopyrrolate (Robinul) 1 mg STK-MED ONCE .ROUTE ; Start 06/29/18 at 09:47; Stop 06/29/18 at 09:48; Status DC Rocuronium [place] (Zemuron) 100 mg STK-MED ONCE .ROUTE ; Start 06/29/18 at 09: 47; Stop 06/29/18 at 09:48; Status DC Neostigmine Methylsulfate (Neostigmine Methylsulfate) 5 mg STK-MED ONCE .ROUTE ; Start 06/29/18 at 09:47; Stop 06/29/18 at 09:48; Status DC Albumin Human 0 ml @ As Directed STK-MED ONCE IV ; Start 06/29/18 at 09:48; Stop 06/29/18 at 09:49; Status DC Iodixanol (Visipaque 320) 100 ml STK-MED ONCE .ROUTE ; Start 06/29/18 at 10:11; Stop 06/29/18 at 10:12; Status DC Lidocaine HCl (Lidocaine 1% 20ml Vial) 20 ml STK-MED ONCE .ROUTE ; Start at 10:11; Stop 06/29/18 at 10:12; Status DC Iodixanol (Visipaque 320) 50 ml STK-MED ONCE .ROUTE ; Start 06/29/18 at 10:11; Stop 06/29/18 at 10:12; Status DC Heparin Sodium/ Sodium Chloride 1,000 ml @ As Directed STK-MED ONCE .ROUTE ; Start 06/29/18 at 10:11; Stop 06/29/18 at 10:12; Status DC Bupivacaine HCl (Sensorcaine Mpf 0.5%) 30 ml STK-MED ONCE .ROUTE Last administered on 06/29/18at 12:42; Start 06/29/18 at 09:59; Stop 06/29/18 at 10:59 ; Status DC Bacitracin (Bacitracin) 50,000 unit STK-MED ONCE IRR ; Start 06/29/18 at 10:00; Stop 06/29/18 at 11:00; Status DC Vancomycin HCl 250 ml @ 250 mls/hr 1X ONCE IV Last administered on 06/29/18at 11:15; Start 06/29/18 at 11:15; Stop 06/29/18 at 12:14; Status DC Heparin Sodium (Porcine) (Heparin Sodium) 10,000 unit STK-MED ONCE .ROUTE ; Start 06/29/18 at 11:49; Stop 06/29/18 at 11:50; Status DC Cellulose (Surgicel Fibrillar 1x2) 1 each STK-MED ONCE .ROUTE ; Start 06/29/18 at 11:50; Stop 06/29/18 at 11:51; Status DC Phenylephrine HCl (Justin-Synephrine Inj) 10 mg STK-MED ONCE .ROUTE ; Start at 11:57; Stop 06/29/18 at 11:58; Status DC Sevoflurane (Ultane) 90 ml STK-MED ONCE IH ; Start 06/29/18 at 12:07; Stop 06/29 at 12:08; Status DC Heparin Sodium/ Sodium Chloride 500 ml @ As Directed STK-MED ONCE .ROUTE ; Start 06/29/18 at 12:35; Stop 06/29/18 at 12:36; Status DC Iodixanol (Visipaque 320) 100 ml STK-MED ONCE .ROUTE ; Start 06/29/18 at 12:52; Stop 06/29/18 at 12:53; Status DC Iodixanol (Visipaque 320) 100 ml STK-MED ONCE .ROUTE ; Start 06/29/18 at 13:17; Stop 06/29/18 at 13:18; Status DC Lidocaine HCl (Lidocaine 1% 20ml Vial) 20 ml STK-MED ONCE .ROUTE ; Start at 13:17; Stop 06/29/18 at 13:18; Status DC Heparin Sodium/ Sodium Chloride 1,000 ml @ As Directed STK-MED ONCE .ROUTE ; Start 06/29/18 at 13:18; Stop 06/29/18 at 13:19; Status DC Heparin Sodium (Porcine) (Heparin Sodium) 10,000 unit STK-MED ONCE .ROUTE ; Start 06/29/18 at 13:19; Stop 06/29/18 at 13:20; Status DC Heparin Sodium/ Sodium Chloride (HEPARIN for ARTERIAL LINE FLUSH) 1,000 unit 1X ONCE IART Last administered on 06/29/18at 14:15; Start 06/29/18 at 14:15; Stop 06/29/18 at 14:16; Status DC Heparin Sodium/ Sodium Chloride (HEPARIN for ARTERIAL LINE FLUSH) 1,000 unit 1X ONCE IART Last administered on 06/29/18at 14:15; Start 06/29/18 at 14:15; Stop 06/29/18 at 14:16; Status DC Heparin Sodium (Porcine) (Heparin Sodium) 4,000 unit 1X ONCE IV Last administered on 06/29/18at 14:15; Start 06/29/18 at 14:15; Stop 06/29/18 at 14:16 ; Status DC Iodixanol (Visipaque 320) 100 ml 1X ONCE IART Last administered on 06/29/18at 14:30; Start 06/29/18 at 14:30; Stop 06/29/18 at 14:31; Status DC Heparin Sodium/ Sodium Chloride 500 ml @ As Directed STK-MED ONCE .ROUTE ; Start 06/29/18 at 14:35; Stop 06/29/18 at 14:36; Status DC Nitroglycerin (Nitroglycerin) 200 mcg 1X ONCE IART Last administered on at 15:30; Start 06/29/18 at 15:30; Stop 06/29/18 at 15:31; Status DC Iodixanol (Visipaque 320) 100 ml STK-MED ONCE .ROUTE ; Start 06/29/18 at 15:51; Stop 06/29/18 at 15:52; Status DC Iodixanol (Visipaque 320) 100 ml STK-MED ONCE .ROUTE ; Start 06/29/18 at 16:52; Stop 06/29/18 at 16:53; Status DC Aspirin (Aspirin) 300 mg 1X ONCE DE Last administered on 06/29/18at 18:18; Start 06/29/18 at 17:30; Stop 06/29/18 at 17:31; Status DC Clopidogrel Bisulfate (Plavix) 300 mg 1X ONCE PO Last administered on at 18:18; Start 06/29/18 at 17:30; Stop 06/29/18 at 17:31; Status DC Fentanyl Citrate 30 ml @ 0 mls/hr CONT PRN IV SEE PROTOCOL Last administered on 07/01/18at 04:49; Start 06/29/18 at 17:30 Fentanyl Citrate (Fentanyl 2ml Vial) 25 mcg PRN Q1HR PRN IV SEE COMMENTS Last administered on 07/01/18at 14:48; Start 06/29/18 at 17:30 Fentanyl Citrate (Fentanyl 2ml Vial) 50 mcg PRN Q1HR PRN IV SEE COMMENTS; Start 06/29/18 at 17:30 Chlorhexidine Gluconate (Peridex) 15 ml BID MM Last administered on 07/02/18at 09:06; Start 06/29/18 at 21:00 Morphine Sulfate (Morphine Sulfate) 2 mg PRN Q1HR PRN IV SEE COMMENTS.; Start 06/29/18 at 17:30 Morphine Sulfate (Morphine Sulfate) 4 mg PRN Q1HR PRN IV SEE COMMENTS.; Start 06/29/18 at 17:30 Midazolam HCl 100 ml @ 0 mls/hr CONT PRN IV SEE PROTOCOL Last administered on at 12:04; Start 06/29/18 at 17:30 Vecuronium [place] (Norcuron Bolus) 6 mg PRN Q2HRS PRN IV ANXIETY / AGITATION; Start 06/29/18 at 17:30 Heparin Sodium (Porcine) 5000 unit/Sodium Chloride 505 ml @ 505 mls/hr 1X ONCE IRR Last administered on 06/29/18at 20:34; Start 06/29/18 at 19:30; Stop at 20:30; Status DC Iohexol (Omnipaque 300 Mg/ml) 100 ml STK-MED ONCE .ROUTE ; Start 06/29/18 at 18: 16; Stop 06/29/18 at 19:17; Status DC Cellulose (Surgicel Fibrillar 1x2) 1 each STK-MED ONCE .ROUTE ; Start 06/29/18 at 19:17; Stop 06/29/18 at 19:18; Status DC Rocuronium [place] (Zemuron) 50 mg STK-MED ONCE .ROUTE ; Start 06/29/18 at 19:42 ; Stop 06/29/18 at 19:43; Status DC Vancomycin HCl 1 gm/Sodium Chloride 250 ml @ 250 mls/hr 1X ONCE IV Last administered on 06/29/18at 20:34; Start 06/29/18 at 20:45; Stop 06/29/18 at 21:44 ; Status DC Vancomycin HCl 250 ml @ 250 mls/hr 1X ONCE IV ; Start 06/29/18 at 20:45; Stop 06/29/18 at 21:44; Status UNV Hydrocortisone Sodium Succinate (Solu-CORTEF) 100 mg STK-MED ONCE .ROUTE ; Start 06/29/18 at 20:50; Stop 06/29/18 at 20:51; Status DC Heparin Sodium (Porcine) (Heparin Sodium) 10,000 unit STK-MED ONCE .ROUTE ; Start 06/29/18 at 21:01; Stop 06/29/18 at 21:02; Status DC Phenylephrine HCl (PHENYLEPHRINE in 0.9% NACL PF) 1 mg STK-MED ONCE IV ; Start 06/29/18 at 21:35; Stop 06/29/18 at 21:36; Status DC Sevoflurane (Ultane) 90 ml STK-MED ONCE IH ; Start 06/29/18 at 21:36; Stop 06/29 at 21:37; Status DC Protamine Sulfate (Protamine) 50 mg STK-MED ONCE IV ; Start 06/29/18 at 21:45; Stop 06/29/18 at 21:46; Status DC Cellulose (Surgicel Fibrillar 1x2) 1 each STK-MED ONCE TP Last administered on 06/29/18at 21:52; Start 06/29/18 at 21:52; Stop 06/29/18 at 21:58; Status DC Sodium Chloride 500 ml @ 500 mls/hr 1X ONCE IV Last administered on at 23:47; Start 06/29/18 at 23:00; Stop 06/29/18 at 23:59; Status DC Sodium Chloride 500 ml @ 500 mls/hr 1X ONCE IV Last administered on at 00:27; Start 06/30/18 at 00:00; Stop 06/30/18 at 00:59; Status DC Norepinephrine Bitartrate 250 ml @ 1.875 mls/ hr CONT PRN IV SEE I/O RECORD Last administered on 06/30/18at 00:26; Start 06/29/18 at 23:45 Rocuronium [place] (Zemuron) 50 mg STK-MED ONCE .ROUTE ; Start 06/29/18 at 12:00 ; Stop 06/30/18 at 08:09; Status DC Aspirin (Aspirin) 300 mg DAILY DE Last administered on 07/02/18at 08:47; Start 06/30/18 at 10:00 Potassium Chloride (KCl Oral Soln) 40 meq DAILY PEG Last administered on at 08:43; Start 06/30/18 at 10:00 Cefazolin Sodium/ Dextrose (Ancef 2gm Premix) 2 gm STK-MED ONCE IV ; Start 06/29 at 11:00; Stop 06/30/18 at 12:24; Status DC Hydralazine HCl (Apresoline Inj) 10 mg PRN Q6HRS PRN IVP ELEVATED BP, SEE COMMENTS; Start 06/30/18 at 14:00; Status UNV Albumin Human 100 ml @ 100 mls/hr 1X ONCE IV Last administered on 06/30/18at 19:39; Start 06/30/18 at 19:15; Stop 06/30/18 at 20:14; Status DC Phenylephrine HCl (PHENYLEPHRINE in 0.9% NACL PF) 0.1 mg 1X ONCE IV Last administered on 06/30/18at 19:15; Start 06/30/18 at 19:15; Stop 06/30/18 at 19:16 ; Status DC Aspirin (Ecotrin) 81 mg PRN DAILY PRN PO WHEN PO TOLERATED; Start 07/01/18 at 10:45 Fentanyl Citrate (Fentanyl 2ml Vial) 25 mcg PRN Q1HR PRN IV SEE COMMENTS; Start 07/01/18 at 13:30; Stop 07/02/18 at 09:04; Status DC Fentanyl Citrate (Fentanyl 2ml Vial) 50 mcg PRN Q1HR PRN IV SEE COMMENTS; Start 07/01/18 at 13:30; Stop 07/02/18 at 09:04; Status DC Chlorhexidine Gluconate (Peridex) 15 ml BID MM ; Start 07/01/18 at 21:00; Status Cancel Dexmedetomidine HCl 200 mcg/ Sodium Chloride 50 ml @ 0 mls/hr CONT PRN IV PER PROTOCOL Last administered on 07/02/18at 01:52; Start 07/01/18 at 13:30 Sodium Chloride 500 ml @ 500 mls/hr 1X PRN PRN IV SEE COMMENTS; Start at 13:30 Atropine Sulfate (ATROPINE 0.5mg SYRINGE) 0.5 mg PRN Q5MIN PRN IV SEE COMMENTS ; Start 07/01/18 at 13:30 Furosemide (Lasix) 40 mg DAILY IV Last administered on 07/02/18at 08:45; Start 07/02/18 at 09:00 Active Scripts Active Clindamycin Hcl 300 Mg Capsule 300 Mg PO QID 7 Days Lasix (Furosemide) 40 Mg Tablet 40 Mg PO BID 14 Days Aldactone (Spironolactone) 25 Mg Tablet 25 Mg PO DAILY MDD 1 Lisinopril 5 Mg Tablet 2.5 Mg PO DAILY MDD 1 Proair Hfa (Albuterol Sulfate) 8.5 Gm Hfa.aer.ad 2.5 Mg NEB PRN Q4HRS PRN MDD 1 Reported Aspir-Low (Aspirin) 81 Mg Tablet.dr 1 Tab PO DAILY Triamterene-Hctz 37.5-25 Mg Cp (Triamterene/Hydrochlorothiazid) 1 Each Capsule 1 Cap PO DAILY Synthroid (Levothyroxine Sodium) 88 Mcg Tablet 1 Tab PO DAILY Latanoprost 2.5 Ml Drops 1 Drop EACHEYE HS Vitals/I & O Vital Sign - Last 24 Hours 07/01/18 07/01/18 07/01/18 07/01/18 10:00 11:00 11:40 12:00 Pulse 94 90 86 Resp 18 18 B/P (MAP) 105/54 (71) 112/61 (78) 78/45 (56) Pulse Ox 97 97 99 O2 Delivery Ventilator Ventilator Ventilator 07/01/18 07/01/18 07/01/18 07/01/18 12:00 12:00 12:09 13:00 Pulse 88 100 Resp 18 18 B/P (MAP) 109/61 (77) 103/64 (77) Pulse Ox 97 99 97 O2 Delivery Mechanical Ventilator Ventilator Ventilator O2 Flow Rate 3.0 07/01/18 07/01/18 07/01/18 07/01/18 13:25 14:00 14:48 15:00 Pulse 80 90 Resp 18 18 B/P (MAP) 112/45 (67) 98/57 (71) Pulse Ox 99 97 99 97 O2 Delivery Ventilator Ventilator Ventilator O2 Flow Rate 3.0 07/01/18 07/01/18 07/01/18 07/01/18 15:08 15:37 16:00 16:00 Pulse 82 Resp 18 B/P (MAP) 106/63 (77) Pulse Ox 100 100 97 O2 Delivery Ventilator Ventilator Mechanical Ventilator O2 Flow Rate 3.0 07/01/18 07/01/18 07/01/18 07/01/18 17:10 17:50 18:14 19:00 Pulse 75 74 73 Resp 18 14 B/P (MAP) 94/50 (65) 95/57 (70) 102/64 (77) Pulse Ox 97 96 96 94 O2 Delivery Ventilator Ventilator Ventilator Ventilator 07/01/18 07/01/18 07/01/18 07/01/18 19:45 20:00 20:24 21:00 Temp 97.4 97.4 Pulse 74 74 Resp 14 14 B/P (MAP) 131/76 (94) 109/61 (77) Pulse Ox 94 90 99 O2 Delivery Mechanical Ventilator Ventilator Ventilator Ventilator 07/01/18 07/01/18 07/01/18 07/02/18 22:00 23:00 23:10 00:00 Pulse 72 72 Resp 14 14 B/P (MAP) 101/57 (72) 97/51 (66) Pulse Ox 100 99 99 O2 Delivery Ventilator Ventilator Ventilator Mechanical Ventilator 07/02/18 07/02/18 07/02/18 07/02/18 00:00 01:00 02:00 02:07 Temp 97.6 97.6 Pulse 74 72 72 Resp 14 14 14 B/P (MAP) 95/51 (66) 96/49 (65) 95/59 (71) Pulse Ox 99 100 100 100 O2 Delivery Ventilator Ventilator Ventilator Ventilator 07/02/18 07/02/18 07/02/18 07/02/18 03:00 03:19 04:00 04:00 Temp 97.5 97.5 Pulse 70 73 Resp 14 14 B/P (MAP) 105/61 (76) 100/55 (70) Pulse Ox 100 100 99 O2 Delivery Ventilator Ventilator Mechanical Ventilator Ventilator 07/02/18 07/02/18 07/02/18 07/02/18 05:00 05:18 06:00 07:39 Pulse 68 68 Resp 14 14 B/P (MAP) 103/51 (68) 109/48 (68) Pulse Ox 99 100 100 100 O2 Delivery Ventilator Ventilator Ventilator Ventilator 07/02/18 08:56 B/P (MAP) 106/54 Intake and Output 07/01/18 07/01/18 07/02/18 15:00 23:00 07:00 Intake Total 169 ml Output Total 1150 ml 645 ml 240 ml Balance -1150 ml -645 ml -71 ml JAN FLORES MD Jul 02, 2018 09:56
[2018-07-02 10:00] LABS: BASE EXCESS ABG 7 mmol/L (-3-3); HCO3 ABG 31 mmol/L (21-28); PCO2 ABG 44 mmHg (35-46); PO2 ABG 77 mmHg (65-108); SAT O2 ABG 95 % (92-99)
[2018-07-02 10:02] LABS: FIO2 ABG 40
[2018-07-02 10:12] LABS: FIO2 ABG 40
--- NOTE | 2018-07-02 11:28 | PDOC ---
EKTA NOLASCO DIRECTOR BUSINESS TRAVEL 07/02/18 1127: CARDIO Progress Notes Date and Time Date of Service 07/02/18 Time of Evaluation 1110 Subjective Subjective: No Chest Pain, No shortness of breath, No Palpitations, No Dizziness Vitals Vitals Vital Signs Date Time Temp Pulse Resp B/P (MAP) Pulse Ox O2 Delivery O2 Flow Rate FiO2 07/02/18 11:00 72 14 95/54 (68) 98 Nasal Cannula 3.0 07/02/18 08:00 96.0 96.0 Weight Weight [ ] Input and Output Intake and Output Intake and Output 07/02/18 07:00 Intake Total 169 ml Output Total 2035 ml Balance -1866 ml IV Total 169 ml Output Urine Total 2005 ml Drainage Total 30 ml Laboratory Labs Laboratory Tests Test 07/01/18 17:17 07/01/18 20:42 07/02/18 08:10 07/02/18 08:50 Glucose (Fingerstick) 208 mg/dL (70-99) 210 mg/dL (70-99) 218 mg/dL (70-99) O2 Saturation 94 % (92-99) Arterial Blood pH 7.48 (7.35-7.45) Arterial Blood pCO2 at Patient Temp 38 mmHg (35-46) Arterial Blood pO2 at Patient Temp 74 mmHg (65-108) Arterial Blood HCO3 28 mmol/L (21-28) Arterial Blood Base Excess 4 mmol/L (-3-3) FiO2 40 Test 07/02/18 09:35 O2 Saturation 95 % (92-99) Arterial Blood pH 7.47 (7.35-7.45) Arterial Blood pCO2 at Patient Temp 44 mmHg (35-46) Arterial Blood pO2 at Patient Temp 77 mmHg (65-108) Arterial Blood HCO3 31 mmol/L (21-28) Arterial Blood Base Excess 7 mmol/L (-3-3) FiO2 40 Physical Exam HEENT: Neck Supple W Full Motion Chest: Symmetric LUNGS: Other (dimiished bases) Heart: S1S2, RRR (SR) Abdomen: Soft N/T, Other Extremities: Other (1+ bilateral LE edmea. NAVIN drain intact) Neurology: alert, other (beginning to follow commands) Assessment Assessment 1. 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 ICM LVEF 20-25% 3. CAD s/p PCI to LM/LAD 4. Severe PAD; s/p aorto/iliac stents and LCFA, SFA, and external iliac endarterectomy with patch. Bilateral LE warm. DP pulses intact 5. Cardiogenic shock; resolved 6. Acute respiratory failure; extubated Recommendations Continue milrinone gtt Daily IV lasix Secondary prevention; ASA, Plavix, statin Continue ACEi, no BB with marginal BP. Consider if BP consistently adequate. Progressing well Supportive care Re-evaluate LVEF in 3 months with outpatient echo. ALYSSIA PASCUAL MD 07/02/18 1810: CARDIO Progress Notes Plan Plan Patient seen and examined. Agree with above nurse practitioner note. Doing remarkably well. Continue milrinone. Continue diuresis. Okay to transfer to floor tomorrow. Plan for rehabilitation placement. Supportive care for now. EKTA NOLASCO APRN Jul 02, 2018 11:27 ALYSSIA PASCUAL MD Jul 02, 2018 18:10
--- NOTE | 2018-07-02 12:13 | PDOC ---
PROGRESS NOTES Subjective Subjective "When can I get something to drink or eat? I feel like I lost a week of my life." Objective Objective Vascular Surgery - POD#3 Bilateral proximal common iliac kissing stents and aortic stent placement, angioplasty with stent of the left main and LAD; Emergent left common femoral, external iliac, superficial femoral artery endarterectomy with bovine patch angioplasty. General: Awake, alert and oriented. Complaining of wanting to eat. No complaints of pain or discomfort to legs. Examined at bedside. CV: Vital signs stable. NSR. Off vasopressors now. Pulm: Extubated this morning. On low supplemental oxygen therapy. Unlabored. No cough. Right leg: Calf soft. Strong doppled dorsalis pedal pulse. Foot warm and pink. No motor or sensory deficits. Left leg: Rooke boot removed. Erythema noted to anterior calf noted. Calf soft. No motor or sensory deficits. Doppled DP and PT pulses. Foot warm and pink. Left groin dressing removed. NAVIN drain remains with bloody output. Had total 60ml output last 24 hours. Incision intact and soft. No hematoma noted. Assessment/Plan: POD#3 Emergent left common femoral, SFA and external iliac endarterectomy with bovine pericardial patch angioplasty due to occlusion with limb threatening ischemia following elective (planned) angioplasty with stent to left main and LAD; bilateral common iliac kissing stents and aortic stent 1. PAD - post op #3 bilateral iliac stents with aortic stent placement. Doppled pulses bilaterally. Improved arterial circulation peripherally. Continue ASA and Plavix antiplatelet therapy. 2. Acute arterial insufficiency left leg due to left common femoral artery occlusion following cath removal - POD#3. Resolved with emergent endarterectomy. Left foot perfusion has improved greatly once vasopressors off. No motor or sensory deficits. - NAVIN to remain today to evaluate output once patient gets off bedrest. Still appears bloody. - ok to get out of bed and mobilize. - will consult PT for mobilization progression. 3. COPD - post extubation plan per Pulmonary. 4. CAD - post intervention per CV Vital Signs Date Time Temp Pulse Resp B/P (MAP) Pulse Ox O2 Delivery O2 Flow Rate FiO2 07/02/18 11:00 72 14 95/54 (68) 98 Nasal Cannula 3.0 07/02/18 08:00 96.0 96.0 Intake and Output 07/02/18 07:00 Intake Total 169 ml Output Total 2035 ml Balance -1866 ml IV Total 169 ml Output Urine Total 2005 ml Drainage Total 30 ml Assessment Assessment Problems Medical Problems: (1) Congestive heart failure Status: Acute Comment Review of Relevant I have reviewed the following items rosangela (where applicable) has been applied. Labs Laboratory Tests Test 06/30/18 12:08 06/30/18 20:33 07/01/18 06:00 07/01/18 07:00 Glucose (Fingerstick) 181 mg/dL (70-99) 147 mg/dL (70-99) White Blood Count 4.5 x10^3/uL (4.0-11.0) Red Blood Count 3.45 x10^6/uL (3.50-5.40) Hemoglobin 10.2 g/dL (12.0-15.5) Hematocrit 30.3 % (36.0-47.0) Mean Corpuscular Volume 88 fL (79-100) Mean Corpuscular Hemoglobin 30 pg (25-35) Mean Corpuscular Hemoglobin Concent 34 g/dL (31-37) Red Cell Distribution Width 17.4 % (11.5-14.5) Platelet Count 183 x10^3/uL (140-400) Neutrophils (%) (Auto) 88 % (31-73) Lymphocytes (%) (Auto) 5 % (24-48) Monocytes (%) (Auto) 7 % (0-9) Eosinophils (%) (Auto) 0 % (0-3) Basophils (%) (Auto) 0 % (0-3) Neutrophils # (Auto) 4.0 x10^3uL (1.8-7.7) Lymphocytes # (Auto) 0.2 x10^3/uL (1.0-4.8) Monocytes # (Auto) 0.3 x10^3/uL (0.0-1.1) Eosinophils # (Auto) 0.0 x10^3/uL (0.0-0.7) Basophils # (Auto) 0.0 x10^3/uL (0.0-0.2) Sodium Level 132 mmol/L (136-145) Potassium Level 4.0 mmol/L (3.5-5.1) Chloride Level 95 mmol/L (98-107) Carbon Dioxide Level 31 mmol/L (21-32) Anion Gap 6 (6-14) Blood Urea Nitrogen 15 mg/dL (7-20) Creatinine 1.0 mg/dL (0.6-1.0) Estimated GFR (Cockcroft-Gault) 54.5 Glucose Level 192 mg/dL (70-99) Calcium Level 8.0 mg/dL (8.5-10.1) Magnesium Level 1.9 mg/dL (1.8-2.4) O2 Saturation 91 % (92-99) Arterial Blood pH 7.49 (7.35-7.45) Arterial Blood pCO2 at Patient Temp 37 mmHg (35-46) Arterial Blood pO2 at Patient Temp 64 mmHg (65-108) Arterial Blood HCO3 28 mmol/L (21-28) Arterial Blood Base Excess 4 mmol/L (-3-3) Test 07/01/18 07:12 07/01/18 17:17 07/01/18 20:42 07/02/18 08:10 Glucose (Fingerstick) 169 mg/dL (70-99) 208 mg/dL (70-99) 210 mg/dL (70-99) O2 Saturation 94 % (92-99) Arterial Blood pH 7.48 (7.35-7.45) Arterial Blood pCO2 at Patient Temp 38 mmHg (35-46) Arterial Blood pO2 at Patient Temp 74 mmHg (65-108) Arterial Blood HCO3 28 mmol/L (21-28) Arterial Blood Base Excess 4 mmol/L (-3-3) FiO2 40 Test 07/02/18 08:50 07/02/18 09:35 Glucose (Fingerstick) 218 mg/dL (70-99) O2 Saturation 95 % (92-99) Arterial Blood pH 7.47 (7.35-7.45) Arterial Blood pCO2 at Patient Temp 44 mmHg (35-46) Arterial Blood pO2 at Patient Temp 77 mmHg (65-108) Arterial Blood HCO3 31 mmol/L (21-28) Arterial Blood Base Excess 7 mmol/L (-3-3) FiO2 40 Laboratory Tests Test 07/01/18 17:17 07/01/18 20:42 07/02/18 08:10 07/02/18 08:50 Glucose (Fingerstick) 208 mg/dL (70-99) 210 mg/dL (70-99) 218 mg/dL (70-99) O2 Saturation 94 % (92-99) Arterial Blood pH 7.48 (7.35-7.45) Arterial Blood pCO2 at Patient Temp 38 mmHg (35-46) Arterial Blood pO2 at Patient Temp 74 mmHg (65-108) Arterial Blood HCO3 28 mmol/L (21-28) Arterial Blood Base Excess 4 mmol/L (-3-3) FiO2 40 Test 07/02/18 09:35 O2 Saturation 95 % (92-99) Arterial Blood pH 7.47 (7.35-7.45) Arterial Blood pCO2 at Patient Temp 44 mmHg (35-46) Arterial Blood pO2 at Patient Temp 77 mmHg (65-108) Arterial Blood HCO3 31 mmol/L (21-28) Arterial Blood Base Excess 7 mmol/L (-3-3) FiO2 40 Medications Current Medications Furosemide (Lasix) 40 mg 1X ONCE IVP Last administered on 06/18/18 14:59; Start 06/18/18 at 14:00; Stop 06/18/18 at 14:47; Status DC Aspirin (Children'S Aspirin) 324 mg 1X ONCE PO Last administered on 06/18/18at 14:59; Start 06/18/18 at 14:00; Stop 06/18/18 at 14:47; Status DC Potassium Chloride (KCl Oral Soln) 40 meq 1X ONCE PO Last administered on at 14:59; Start 06/18/18 at 15:00; Stop 06/18/18 at 15:01; Status DC Furosemide (Lasix) 40 mg DAILY IVP ; Start 06/19/18 at 09:00; Stop 06/19/18 at 09: 00; Status DC Furosemide (Lasix) 40 mg [id number] IVP ; Start 06/19/18 at 09:00; Stop 06/19/18 at 09: 00; Status DC Lisinopril (Prinivil) 2.5 mg DAILY PO Last administered on 07/02/18at 08:56; Start 06/19/18 at 09:00 Furosemide (Lasix) 40 mg [id number] IV Last administered on 07/01/18at 16:09; Start 06/18/18 at 16:00; Stop 07/01/18 at 17:45; Status DC Spironolactone (Aldactone) 25 mg DAILY PO Last administered on 07/02/18at 08:44 ; Start 06/19/18 at 09:00 Heparin Sodium (Porcine) (Heparin Sodium) 5,000 unit Q12HR SQ Last administered on 07/02/18 08:52; Start 06/18/18 at 16:00 Sodium Chloride (Normal Saline Flush) 3 ml QSHIFT PRN IV AFTER MEDS AND BLOOD DRAWS; Start 06/18/18 at 16:00 Ondansetron HCl (Zofran) 4 mg PRN Q4HRS PRN IV NAUSEA/VOMITING; Start 06/18/18 at 16:00 Acetaminophen (Tylenol) 650 mg PRN Q4HRS PRN PO TEMP OVER 100.4F OR MILD PAIN Last administered on 06/28/18 20:56; Start 06/18/18 at 16:00 Sodium Monofluorophosphate (Fleet Adult) 133 ml PRN DAILY PRN MA CONSTIPATION; Start 06/18/18 at 16:00 Diphenhydramine HCl (Benadryl) 25 mg PRN Q4HRS PRN IVP ITCHING Last administered on 06/28/18 20:56; Start 06/18/18 at 16:00 Docusate Sodium (Colace) 100 mg PRN BID PRN PO CONSTIPATION Last administered on 06/27/18 08:41; Start 06/18/18 at 16:00 Albuterol Sulfate (Ventolin Neb Soln) 2.5 mg PRN Q4HRS PRN NEB SHORTNESS OF BREATH; Start 06/18/18 at 16:00 Albuterol/ Ipratropium (Duoneb) 3 ml Q4HRS NEB Last administered on 07/02/18 07:39; Start 06/18/18 at 16:00 Aspirin (Ecotrin) 81 mg DAILY08 PO Last administered on 06/28/18 10:14; Start 06/19/18 at 08:00; Stop 07/01/18 at 10:41; Status DC Levothyroxine Sodium (Synthroid) 88 mcg DAILY08 PO Last administered on 08:43; Start 06/19/18 at 08:00 Latanoprost (Xalatan) 1 drop QHS OU Last administered on 07/01/18 20:46; Start 06/18/18 at 21:00 Potassium Chloride (KCl Oral Soln) 40 meq 1X ONCE PO Last administered on 4/6/ 19at 13:43; Start 06/19/18 at 13:00; Stop 06/19/18 at 13:01; Status DC Insulin Glargine (Lantus) 5 units QHS SQ Last administered on 07/01/18at 20:45; Start 06/19/18 at 21:00 Insulin Human Lispro (HumaLOG) 0-5 UNITS TIDWMEALS SQ Last administered on 07/02at 08:52; Start 06/19/18 at 12:30 Dextrose (Dextrose 50%-Water Syringe) 12.5 gm PRN Q15MIN PRN IV SEE COMMENTS; Start 06/19/18 at 12:15 Clindamycin Phosphate 50 ml @ 100 mls/hr Q8HRS IV Last administered on at 14:17; Start 06/21/18 at 10:00; Stop 06/24/18 at 15:00; Status DC Lactobacillus Rhamnosus (Culturelle) 1 cap BID PO Last administered on at 08:44; Start 06/21/18 at 21:00 Milrinone Lactate/ Dextrose 100 ml @ 4.022 mls/ hr CONT PRN IV SEE I/O RECORD Last administered on 07/01/18at 20:46; Start 06/22/18 at 13:00 Iodixanol (Visipaque 320) 100 ml STK-MED ONCE .ROUTE ; Start 06/23/18 at 06:35; Stop 06/23/18 at 06:36; Status DC Lidocaine HCl (Lidocaine 1% 20ml Vial) 20 ml STK-MED ONCE .ROUTE ; Start at 06:35; Stop 06/23/18 at 06:36; Status DC Heparin Sodium/ Sodium Chloride 1,500 ml @ As Directed STK-MED ONCE .ROUTE ; Start 06/23/18 at 06:35; Stop 06/23/18 at 06:36; Status DC Iodixanol (Visipaque 320) 100 ml STK-MED ONCE .ROUTE ; Start 06/23/18 at 07:26; Stop 06/23/18 at 07:27; Status DC Midazolam HCl (Versed) 2 mg STK-MED ONCE .ROUTE ; Start 06/23/18 at 07:30; Stop 06/23/18 at 07:31; Status DC Fentanyl Citrate (Fentanyl 2ml Vial) 100 mcg STK-MED ONCE .ROUTE ; Start at 07:30; Stop 06/23/18 at 07:31; Status DC Verapamil HCl (Verapamil) 5 mg STK-MED ONCE .ROUTE ; Start 06/23/18 at 07:30; Stop 06/23/18 at 07:31; Status DC Heparin Sodium (Porcine) (Heparin Sodium) 10,000 unit STK-MED ONCE .ROUTE ; Start 06/23/18 at 07:30; Stop 06/23/18 at 07:31; Status DC Nitroglycerin (Nitroglycerin) 200 mcg STK-MED ONCE .ROUTE ; Start 06/23/18 at 07 :30; Stop 06/23/18 at 07:31; Status DC Nitroglycerin (Nitroglycerin) 200 mcg 1X ONCE IART Last administered on at 08:20; Start 06/23/18 at 08:15; Stop 06/23/18 at 08:18; Status DC Verapamil HCl (Verapamil) 2.5 mg 1X ONCE IART Last administered on 06/23/18at 08:22; Start 06/23/18 at 08:15; Stop 06/23/18 at 08:18; Status DC Heparin Sodium (Porcine) (Heparin Sodium) 2,500 unit 1X ONCE IART Last administered on 06/23/18 08:23; Start 06/23/18 at 08:15; Stop 06/23/18 at 08:18 ; Status DC Heparin Sodium/ Sodium Chloride (HEPARIN for ARTERIAL LINE FLUSH) 1,000 unit 1X ONCE IART Last administered on 06/23/18 08:20; Start 06/23/18 at 08:15; Stop 06/23/18 at 08:18; Status DC Heparin Sodium/ Sodium Chloride (HEPARIN for ARTERIAL LINE FLUSH) 1,000 unit 1X ONCE IART Last administered on 06/23/18at 08:20; Start 06/23/18 at 08:15; Stop 06/23/18 at 08:18; Status DC Midazolam HCl (Versed) 1.5 mg 1X ONCE IV Last administered on 06/23/18at 08:21 ; Start 06/23/18 at 08:15; Stop 06/23/18 at 08:18; Status DC Fentanyl Citrate (Fentanyl 2ml Vial) 75 mcg 1X ONCE IV Last administered on 4/ 10/19at 08:22; Start 06/23/18 at 08:15; Stop 06/23/18 at 08:18; Status DC Iodixanol (Visipaque 320) 99 ml 1X ONCE IART Last administered on 06/23/18at 08 :20; Start 06/23/18 at 08:15; Stop 06/23/18 at 08:18; Status DC Lidocaine HCl (Lidocaine 1% 20ml Vial) 1 ml 1X ONCE INJ Last administered on at 08:20; Start 06/23/18 at 08:15; Stop 06/23/18 at 08:18; Status DC Info (CONTRAST GIVEN -- Rx MONITORING) 1 each PRN DAILY PRN MC SEE COMMENTS; Start 06/23/18 at 08:30; Stop 06/25/18 at 08:29; Status DC Sodium Chloride 250 ml @ 250 mls/hr 1X ONCE IV Last administered on at 11:07; Start 06/23/18 at 11:15; Stop 06/23/18 at 12:14; Status DC Furosemide (Lasix) 40 mg 1X ONCE IVP Last administered on 06/23/18at 20:46; Start 06/23/18 at 20:15; Stop 06/23/18 at 20:19; Status DC Magnesium Sulfate 50 ml @ 25 mls/hr 1X ONCE IV Last administered on 06/24/18at 14:13; Start 06/24/18 at 12:30; Stop 06/24/18 at 14:29; Status DC Potassium Chloride (Klor-Con) 40 meq 1X ONCE PO Last administered on at 14:14; Start 06/24/18 at 12:30; Stop 06/24/18 at 12:31; Status DC Clindamycin HCl (Cleocin) 300 mg QID PO Last administered on 06/28/18at 20:56; Start 06/24/18 at 21:00; Stop 06/29/18 at 15:41; Status DC Potassium Chloride (Klor-Con) 40 meq DAILY PO Last administered on 06/28/18at 10 :16; Start 06/25/18 at 11:15 Magnesium Sulfate 50 ml @ 25 mls/hr 1X ONCE IV Last administered on 06/25/18at 12:07; Start 06/25/18 at 11:15; Stop 06/25/18 at 13:14; Status DC Potassium Chloride (Klor-Con) 40 meq 1X ONCE PO Last administered on at 08:50; Start 06/26/18 at 07:45; Stop 06/26/18 at 07:50; Status DC Clopidogrel Bisulfate (Plavix) 300 mg 1X ONCE PO Last administered on at 13:10; Start 06/26/18 at 11:00; Stop 06/26/18 at 11:06; Status DC Clopidogrel Bisulfate (Plavix) 75 mg DAILYWBKFT PO Last administered on at 08:44; Start 06/27/18 at 08:00 Methylprednisolone Sodium Succinate (SOLU-Medrol 40MG VIAL) 40 mg Q8HRS IV Last administered on 07/02/18at 05:57; Start 06/27/18 at 09:15 Atorvastatin Calcium (Lipitor) 40 mg QHS PO Last administered on 07/01/18at 20: 46; Start 06/28/18 at 21:00 Heparin Sodium (Porcine) 5000 unit/Sodium Chloride 505 ml @ 505 mls/hr 1X ONCE IRR ; Start 06/29/18 at 06:00; Stop 06/29/18 at 06:59; Status DC Cefazolin Sodium/ Dextrose 50 ml @ 100 mls/hr 1X PREOP PRN IV on hold OR; Start 06/29/18 at 06:00; Stop 06/29/18 at 11:19; Status DC Ondansetron HCl (Zofran) 4 mg PRN Q6HRS PRN IV NAUSEA/VOMITING; Start 06/29/18 at 07:00; Stop 06/30/18 at 06:59; Status DC Fentanyl Citrate (Fentanyl 2ml Vial) 25 mcg PRN Q5MIN PRN IV MILD PAIN; Start 06/29/18 at 07:00; Stop 06/30/18 at 06:59; Status DC Fentanyl Citrate (Fentanyl 2ml Vial) 50 mcg PRN Q5MIN PRN IV MODERATE TO SEVERE PAIN; Start 06/29/18 at 07:00; Stop 06/30/18 at 06:59; Status DC Morphine Sulfate (Morphine Sulfate) 1 mg PRN Q10MIN PRN IV SEVERE PAIN; Start 06/29/18 at 07:00; Stop 06/30/18 at 06:59; Status DC Ringer's Solution 1,000 ml @ 30 mls/hr Q24H IV Last administered on 06/29/18at 10:12; Start 06/29/18 at 07:00; Stop 06/29/18 at 18:59; Status DC Lidocaine HCl (Xylocaine-Mpf 1% 2ml Vial) 2 ml PRN 1X PRN ID PRIOR TO IV START ; Start 06/29/18 at 07:00; Stop 06/30/18 at 06:59; Status DC Hydromorphone HCl (Dilaudid) 0.5 mg PRN Q10MIN PRN IV SEV PAIN, Second choice; Start 06/29/18 at 07:00; Stop 06/30/18 at 06:59; Status DC Prochlorperazine Edisylate (Compazine) 5 mg PACU PRN PRN IV NAUSEA, MRX1; Start 06/29/18 at 07:00; Stop 06/30/18 at 06:59; Status DC Bupivacaine HCl/ Epinephrine Bitart (Sensorcain-Mpf Epi 0.5%-[id number]) 30 ml STK -MED ONCE .ROUTE ; Start 06/29/18 at 05:59; Stop 06/29/18 at 06:59; Status DC Gelatin (Gelfoam Size 12-7mm) 1 each STK-MED ONCE .ROUTE ; Start 06/29/18 at 05 :59; Stop 06/29/18 at 06:59; Status DC Iohexol (Omnipaque 300 Mg/ml) 100 ml STK-MED ONCE .ROUTE ; Start 06/29/18 at 05: 59; Stop 06/29/18 at 07:00; Status DC Bupivacaine HCl (Sensorcaine Mpf 0.25%) 30 ml STK-MED ONCE .ROUTE ; Start at 05:59; Stop 06/29/18 at 07:00; Status DC Papaverine HCl 60 mg STK-MED ONCE .ROUTE ; Start 06/29/18 at 06:00; Stop at 07:01; Status DC Thrombin 20,000 unit STK-MED ONCE TP ; Start 06/29/18 at 06:00; Stop 06/29/18 at 07:01; Status DC Sodium Chloride (SODIUM CHLORIDE 20ml) 20 ml STK-MED ONCE IJ ; Start 06/29/18 at 09:46; Stop 06/29/18 at 09:47; Status DC Famotidine (Pepcid Vial) 20 mg STK-MED ONCE .ROUTE ; Start 06/29/18 at 09:46; Stop 06/29/18 at 09:47; Status DC Ondansetron HCl (Zofran) 4 mg STK-MED ONCE .ROUTE ; Start 06/29/18 at 09:46; Stop 06/29/18 at 09:47; Status DC Dexamethasone Sodium Phosphate (Decadron) 20 mg STK-MED ONCE .ROUTE ; Start at 09:46; Stop 06/29/18 at 09:47; Status DC Lidocaine HCl (Lidocaine Pf 2% Vial) 5 ml STK-MED ONCE .ROUTE ; Start 06/29/18 at 09:46; Stop 06/29/18 at 09:47; Status DC Etomidate (Amidate) 20 mg STK-MED ONCE IV ; Start 06/29/18 at 09:46; Stop at 09:47; Status DC Phenylephrine HCl (PHENYLEPHRINE in 0.9% NACL PF) 1 mg STK-MED ONCE IV ; Start 06/29/18 at 09:46; Stop 06/29/18 at 09:47; Status DC Fentanyl Citrate (Fentanyl 2ml Vial) 100 mcg STK-MED ONCE .ROUTE ; Start at 09:47; Stop 06/29/18 at 09:48; Status DC Hydromorphone HCl (Dilaudid) 2 mg STK-MED ONCE .ROUTE ; Start 06/29/18 at 09:47 ; Stop 06/29/18 at 09:48; Status DC Glycopyrrolate (Robinul) 1 mg STK-MED ONCE .ROUTE ; Start 06/29/18 at 09:47; Stop 06/29/18 at 09:48; Status DC Rocuronium [place] (Zemuron) 100 mg STK-MED ONCE .ROUTE ; Start 06/29/18 at 09: 47; Stop 06/29/18 at 09:48; Status DC Neostigmine Methylsulfate (Neostigmine Methylsulfate) 5 mg STK-MED ONCE .ROUTE ; Start 06/29/18 at 09:47; Stop 06/29/18 at 09:48; Status DC Albumin Human 0 ml @ As Directed STK-MED ONCE IV ; Start 06/29/18 at 09:48; Stop 06/29/18 at 09:49; Status DC Iodixanol (Visipaque 320) 100 ml STK-MED ONCE .ROUTE ; Start 06/29/18 at 10:11; Stop 06/29/18 at 10:12; Status DC Lidocaine HCl (Lidocaine 1% 20ml Vial) 20 ml STK-MED ONCE .ROUTE ; Start at 10:11; Stop 06/29/18 at 10:12; Status DC Iodixanol (Visipaque 320) 50 ml STK-MED ONCE .ROUTE ; Start 06/29/18 at 10:11; Stop 06/29/18 at 10:12; Status DC Heparin Sodium/ Sodium Chloride 1,000 ml @ As Directed STK-MED ONCE .ROUTE ; Start 06/29/18 at 10:11; Stop 06/29/18 at 10:12; Status DC Bupivacaine HCl (Sensorcaine Mpf 0.5%) 30 ml STK-MED ONCE .ROUTE Last administered on 06/29/18at 12:42; Start 06/29/18 at 09:59; Stop 06/29/18 at 10:59 ; Status DC Bacitracin (Bacitracin) 50,000 unit STK-MED ONCE IRR ; Start 06/29/18 at 10:00; Stop 06/29/18 at 11:00; Status DC Vancomycin HCl 250 ml @ 250 mls/hr 1X ONCE IV Last administered on 06/29/18at 11:15; Start 06/29/18 at 11:15; Stop 06/29/18 at 12:14; Status DC Heparin Sodium (Porcine) (Heparin Sodium) 10,000 unit STK-MED ONCE .ROUTE ; Start 06/29/18 at 11:49; Stop 06/29/18 at 11:50; Status DC Cellulose (Surgicel Fibrillar 1x2) 1 each STK-MED ONCE .ROUTE ; Start 06/29/18 at 11:50; Stop 06/29/18 at 11:51; Status DC Phenylephrine HCl (Justin-Synephrine Inj) 10 mg STK-MED ONCE .ROUTE ; Start at 11:57; Stop 06/29/18 at 11:58; Status DC Sevoflurane (Ultane) 90 ml STK-MED ONCE IH ; Start 06/29/18 at 12:07; Stop 06/29 at 12:08; Status DC Heparin Sodium/ Sodium Chloride 500 ml @ As Directed STK-MED ONCE .ROUTE ; Start 06/29/18 at 12:35; Stop 06/29/18 at 12:36; Status DC Iodixanol (Visipaque 320) 100 ml STK-MED ONCE .ROUTE ; Start 06/29/18 at 12:52; Stop 06/29/18 at 12:53; Status DC Iodixanol (Visipaque 320) 100 ml STK-MED ONCE .ROUTE ; Start 06/29/18 at 13:17; Stop 06/29/18 at 13:18; Status DC Lidocaine HCl (Lidocaine 1% 20ml Vial) 20 ml STK-MED ONCE .ROUTE ; Start at 13:17; Stop 06/29/18 at 13:18; Status DC Heparin Sodium/ Sodium Chloride 1,000 ml @ As Directed STK-MED ONCE .ROUTE ; Start 06/29/18 at 13:18; Stop 06/29/18 at 13:19; Status DC Heparin Sodium (Porcine) (Heparin Sodium) 10,000 unit STK-MED ONCE .ROUTE ; Start 06/29/18 at 13:19; Stop 06/29/18 at 13:20; Status DC Heparin Sodium/ Sodium Chloride (HEPARIN for ARTERIAL LINE FLUSH) 1,000 unit 1X ONCE IART Last administered on 06/29/18at 14:15; Start 06/29/18 at 14:15; Stop 06/29/18 at 14:16; Status DC Heparin Sodium/ Sodium Chloride (HEPARIN for ARTERIAL LINE FLUSH) 1,000 unit 1X ONCE IART Last administered on 06/29/18at 14:15; Start 06/29/18 at 14:15; Stop 06/29/18 at 14:16; Status DC Heparin Sodium (Porcine) (Heparin Sodium) 4,000 unit 1X ONCE IV Last administered on 06/29/18at 14:15; Start 06/29/18 at 14:15; Stop 06/29/18 at 14:16 ; Status DC Iodixanol (Visipaque 320) 100 ml 1X ONCE IART Last administered on 06/29/18at 14:30; Start 06/29/18 at 14:30; Stop 06/29/18 at 14:31; Status DC Heparin Sodium/ Sodium Chloride 500 ml @ As Directed STK-MED ONCE .ROUTE ; Start 06/29/18 at 14:35; Stop 06/29/18 at 14:36; Status DC Nitroglycerin (Nitroglycerin) 200 mcg 1X ONCE IART Last administered on at 15:30; Start 06/29/18 at 15:30; Stop 06/29/18 at 15:31; Status DC Iodixanol (Visipaque 320) 100 ml STK-MED ONCE .ROUTE ; Start 06/29/18 at 15:51; Stop 06/29/18 at 15:52; Status DC Iodixanol (Visipaque 320) 100 ml STK-MED ONCE .ROUTE ; Start 06/29/18 at 16:52; Stop 06/29/18 at 16:53; Status DC Aspirin (Aspirin) 300 mg 1X ONCE MA Last administered on 06/29/18at 18:18; Start 06/29/18 at 17:30; Stop 06/29/18 at 17:31; Status DC Clopidogrel Bisulfate (Plavix) 300 mg 1X ONCE PO Last administered on at 18:18; Start 06/29/18 at 17:30; Stop 06/29/18 at 17:31; Status DC Fentanyl Citrate 30 ml @ 0 mls/hr CONT PRN IV SEE PROTOCOL Last administered on 07/01/18at 04:49; Start 06/29/18 at 17:30 Fentanyl Citrate (Fentanyl 2ml Vial) 25 mcg PRN Q1HR PRN IV SEE COMMENTS Last administered on 07/01/18at 14:48; Start 06/29/18 at 17:30 Fentanyl Citrate (Fentanyl 2ml Vial) 50 mcg PRN Q1HR PRN IV SEE COMMENTS; Start 06/29/18 at 17:30 Chlorhexidine Gluconate (Peridex) 15 ml BID MM Last administered on 07/02/18at 09:06; Start 06/29/18 at 21:00 Morphine Sulfate (Morphine Sulfate) 2 mg PRN Q1HR PRN IV SEE COMMENTS.; Start 06/29/18 at 17:30 Morphine Sulfate (Morphine Sulfate) 4 mg PRN Q1HR PRN IV SEE COMMENTS.; Start 06/29/18 at 17:30 Midazolam HCl 100 ml @ 0 mls/hr CONT PRN IV SEE PROTOCOL Last administered on at 12:04; Start 06/29/18 at 17:30 Vecuronium [place] (Norcuron Bolus) 6 mg PRN Q2HRS PRN IV ANXIETY / AGITATION; Start 06/29/18 at 17:30 Heparin Sodium (Porcine) 5000 unit/Sodium Chloride 505 ml @ 505 mls/hr 1X ONCE IRR Last administered on 06/29/18at 20:34; Start 06/29/18 at 19:30; Stop at 20:30; Status DC Iohexol (Omnipaque 300 Mg/ml) 100 ml STK-MED ONCE .ROUTE ; Start 06/29/18 at 18: 16; Stop 06/29/18 at 19:17; Status DC Cellulose (Surgicel Fibrillar 1x2) 1 each STK-MED ONCE .ROUTE ; Start 06/29/18 at 19:17; Stop 06/29/18 at 19:18; Status DC Rocuronium [place] (Zemuron) 50 mg STK-MED ONCE .ROUTE ; Start 06/29/18 at 19:42 ; Stop 06/29/18 at 19:43; Status DC Vancomycin HCl 1 gm/Sodium Chloride 250 ml @ 250 mls/hr 1X ONCE IV Last administered on 06/29/18at 20:34; Start 06/29/18 at 20:45; Stop 06/29/18 at 21:44 ; Status DC Vancomycin HCl 250 ml @ 250 mls/hr 1X ONCE IV ; Start 06/29/18 at 20:45; Stop 06/29/18 at 21:44; Status UNV Hydrocortisone Sodium Succinate (Solu-CORTEF) 100 mg STK-MED ONCE .ROUTE ; Start 06/29/18 at 20:50; Stop 06/29/18 at 20:51; Status DC Heparin Sodium (Porcine) (Heparin Sodium) 10,000 unit STK-MED ONCE .ROUTE ; Start 06/29/18 at 21:01; Stop 06/29/18 at 21:02; Status DC Phenylephrine HCl (PHENYLEPHRINE in 0.9% NACL PF) 1 mg STK-MED ONCE IV ; Start 06/29/18 at 21:35; Stop 06/29/18 at 21:36; Status DC Sevoflurane (Ultane) 90 ml STK-MED ONCE IH ; Start 06/29/18 at 21:36; Stop 06/29 at 21:37; Status DC Protamine Sulfate (Protamine) 50 mg STK-MED ONCE IV ; Start 06/29/18 at 21:45; Stop 06/29/18 at 21:46; Status DC Cellulose (Surgicel Fibrillar 1x2) 1 each STK-MED ONCE TP Last administered on 06/29/18at 21:52; Start 06/29/18 at 21:52; Stop 06/29/18 at 21:58; Status DC Sodium Chloride 500 ml @ 500 mls/hr 1X ONCE IV Last administered on at 23:47; Start 06/29/18 at 23:00; Stop 06/29/18 at 23:59; Status DC Sodium Chloride 500 ml @ 500 mls/hr 1X ONCE IV Last administered on at 00:27; Start 06/30/18 at 00:00; Stop 06/30/18 at 00:59; Status DC Norepinephrine Bitartrate 250 ml @ 1.875 mls/ hr CONT PRN IV SEE I/O RECORD Last administered on 06/30/18at 00:26; Start 06/29/18 at 23:45 Rocuronium [place] (Zemuron) 50 mg STK-MED ONCE .ROUTE ; Start 06/29/18 at 12:00 ; Stop 06/30/18 at 08:09; Status DC Aspirin (Aspirin) 300 mg DAILY MA Last administered on 07/02/18at 08:47; Start 06/30/18 at 10:00 Potassium Chloride (KCl Oral Soln) 40 meq DAILY PEG Last administered on at 08:43; Start 06/30/18 at 10:00 Cefazolin Sodium/ Dextrose (Ancef 2gm Premix) 2 gm STK-MED ONCE IV ; Start 06/29 at 11:00; Stop 06/30/18 at 12:24; Status DC Hydralazine HCl (Apresoline Inj) 10 mg PRN Q6HRS PRN IVP ELEVATED BP, SEE COMMENTS; Start 06/30/18 at 14:00; Status UNV Albumin Human 100 ml @ 100 mls/hr 1X ONCE IV Last administered on 06/30/18at 19:39; Start 06/30/18 at 19:15; Stop 06/30/18 at 20:14; Status DC Phenylephrine HCl (PHENYLEPHRINE in 0.9% NACL PF) 0.1 mg 1X ONCE IV Last administered on 06/30/18at 19:15; Start 06/30/18 at 19:15; Stop 06/30/18 at 19:16 ; Status DC Aspirin (Ecotrin) 81 mg PRN DAILY PRN PO WHEN PO TOLERATED; Start 07/01/18 at 10:45 Fentanyl Citrate (Fentanyl 2ml Vial) 25 mcg PRN Q1HR PRN IV SEE COMMENTS; Start 07/01/18 at 13:30; Stop 07/02/18 at 09:04; Status DC Fentanyl Citrate (Fentanyl 2ml Vial) 50 mcg PRN Q1HR PRN IV SEE COMMENTS; Start 07/01/18 at 13:30; Stop 07/02/18 at 09:04; Status DC Chlorhexidine Gluconate (Peridex) 15 ml BID MM ; Start 07/01/18 at 21:00; Status Cancel Dexmedetomidine HCl 200 mcg/ Sodium Chloride 50 ml @ 0 mls/hr CONT PRN IV PER PROTOCOL Last administered on 07/02/18at 01:52; Start 07/01/18 at 13:30 Sodium Chloride 500 ml @ 500 mls/hr 1X PRN PRN IV SEE COMMENTS; Start at 13:30 Atropine Sulfate (ATROPINE 0.5mg SYRINGE) 0.5 mg PRN Q5MIN PRN IV SEE COMMENTS ; Start 07/01/18 at 13:30 Furosemide (Lasix) 40 mg DAILY IV Last administered on 07/02/18at 08:45; Start 07/02/18 at 09:00 Active Scripts Active Clindamycin Hcl 300 Mg Capsule 300 Mg PO QID 7 Days Lasix (Furosemide) 40 Mg Tablet 40 Mg PO BID 14 Days Aldactone (Spironolactone) 25 Mg Tablet 25 Mg PO DAILY MDD 1 Lisinopril 5 Mg Tablet 2.5 Mg PO DAILY MDD 1 Proair Hfa (Albuterol Sulfate) 8.5 Gm Hfa.aer.ad 2.5 Mg NEB PRN Q4HRS PRN MDD 1 Reported Aspir-Low (Aspirin) 81 Mg Tablet.dr 1 Tab PO DAILY Triamterene-Hctz 37.5-25 Mg Cp (Triamterene/Hydrochlorothiazid) 1 Each Capsule 1 Cap PO DAILY Synthroid (Levothyroxine Sodium) 88 Mcg Tablet 1 Tab PO DAILY Latanoprost 2.5 Ml Drops 1 Drop EACHEYE HS Vitals/I & O Vital Sign - Last 24 Hours 07/01/18 07/01/18 07/01/18 07/01/18 12:00 12:00 12:00 12:09 Pulse 86 88 Resp 18 B/P (MAP) 78/45 (56) 109/61 (77) Pulse Ox 97 99 O2 Delivery Mechanical Ventilator Ventilator O2 Flow Rate 3.0 07/01/18 07/01/18 07/01/18 07/01/18 13:00 13:25 14:00 14:48 Pulse 100 80 Resp 18 18 B/P (MAP) 103/64 (77) 112/45 (67) Pulse Ox 97 99 97 99 O2 Delivery Ventilator Ventilator Ventilator O2 Flow Rate 3.0 07/01/18 07/01/18 07/01/18 07/01/18 15:00 15:08 15:37 16:00 Pulse 90 82 Resp 18 18 B/P (MAP) 98/57 (71) 106/63 (77) Pulse Ox 97 100 100 97 O2 Delivery Ventilator Ventilator Ventilator O2 Flow Rate 3.0 07/01/18 07/01/18 07/01/18 07/01/18 16:00 17:10 17:50 18:14 Pulse 75 74 Resp 18 B/P (MAP) 94/50 (65) 95/57 (70) Pulse Ox 97 96 96 O2 Delivery Mechanical Ventilator Ventilator Ventilator Ventilator 07/01/18 07/01/18 07/01/18 07/01/18 19:00 19:45 20:00 20:24 Temp 97.4 97.4 Pulse 73 74 Resp 14 14 B/P (MAP) 102/64 (77) 131/76 (94) Pulse Ox 94 94 90 O2 Delivery Ventilator Mechanical Ventilator Ventilator Ventilator 07/01/18 07/01/18 07/01/18 07/01/18 21:00 22:00 23:00 23:10 Pulse 74 72 72 Resp 14 14 14 B/P (MAP) 109/61 (77) 101/57 (72) 97/51 (66) Pulse Ox 99 100 99 99 O2 Delivery Ventilator Ventilator Ventilator Ventilator 4/19/19 07/02/18 07/02/18 07/02/18 00:00 00:00 01:00 02:00 Temp 97.6 97.6 Pulse 74 72 72 Resp 14 14 14 B/P (MAP) 95/51 (66) 96/49 (65) 95/59 (71) Pulse Ox 99 100 100 O2 Delivery Mechanical Ventilator Ventilator Ventilator Ventilator 07/02/18 07/02/18 07/02/18 07/02/18 02:07 03:00 03:19 04:00 Pulse 70 Resp 14 B/P (MAP) 105/61 (76) Pulse Ox 100 100 100 O2 Delivery Ventilator Ventilator Ventilator Mechanical Ventilator 07/02/18 07/02/18 07/02/18 07/02/18 04:00 05:00 05:18 06:00 Temp 97.5 97.5 Pulse 73 68 68 Resp 14 14 14 B/P (MAP) 100/55 (70) 103/51 (68) 109/48 (68) Pulse Ox 99 99 100 100 O2 Delivery Ventilator Ventilator Ventilator Ventilator 07/02/18 07/02/18 07/02/18 07/02/18 07:00 07:39 08:00 08:00 Temp 96.0 96.0 Pulse 68 70 Resp 14 14 B/P (MAP) 105/47 (66) 81/44 (56) Pulse Ox 100 100 100 O2 Delivery Ventilator Ventilator Mechanical Ventilator Ventilator 07/02/18 07/02/18 07/02/18 07/02/18 08:56 09:00 09:00 10:00 Pulse 72 72 Resp 14 14 B/P (MAP) 106/54 106/54 (71) 97/56 (70) Pulse Ox 100 100 O2 Delivery C-pap trial Ventilator C-pap trial 07/02/18 07/02/18 10:30 11:00 Pulse 72 Resp 14 B/P (MAP) 95/54 (68) Pulse Ox 98 O2 Delivery Nasal Cannula Nasal Cannula O2 Flow Rate 3.0 3.0 Intake and Output 07/01/18 07/01/18 07/02/18 15:00 23:00 07:00 Intake Total 169 ml Output Total 1150 ml 645 ml 240 ml Balance -1150 ml -645 ml -71 ml PAULINE 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
[2018-07-02] MEDS: MILRINONE 20MG/100ML PREMIX 100 ML IV PRN (19:48)
[2018-07-02] MEDS ORDERED: FUROSEMIDE 40 MG/4 ML VIAL. IVP ONE (21:00)
[2018-07-02] MEDS: LATANOPROST 0.005% OPHTH SOLUTION 2.5ML BOTTLE. OU SCH (21:27)
[2018-07-02] MEDS: ATORVASTATIN CALCIUM 40 MG TABLET. PO SCH (21:28)
[2018-07-02] MEDS: INSULIN GLARGINE 300 UNITS/3 ML INSULN.PEN. SQ SCH (21:39)
[2018-07-03] VITALS (15 sets, daily range): BP systolic 87–141; BP diastolic 48–72
[2018-07-03] MEDS: IPRATRPIUM/ALBUTEROL 0.5/2.5MG 3 ML NEBU. NEB SCH ×6 (03:42→23:53)
[2018-07-03] MEDS: methylPREDNISolone SOD SUCC PF 40 MG/ML VIAL. IV SCH ×3 (05:40→22:03)
[2018-07-03 06:15] LABS: BASO % 1 % (0-3); EOS % 0 % (0-3); HEMATOCRIT 34.1 % (36.0-47.0); HEMOGLOBIN 11.4 g/dL (12.0-15.5); LYMPH # 0.2 x10^3/uL (1.0-4.8); LYMPH % 3 % (24-48); MEAN CORPUSCULAR HEMOGLOBIN 30 pg (25-35); MEAN CORPUSCULAR HGB CONC 33 g/dL (31-37); MEAN CORPUSCULAR VOLUME 89 fL (79-100); MONO # 0.3 x10^3/uL (0.0-1.1); MONO % 4 % (0-9); NEUT # 6.7 x10^3uL (1.8-7.7); NEUT % 92 % (31-73); PLATELET COUNT 220 x10^3/uL (140-400); RED BLOOD COUNT 3.84 x10^6/uL (3.50-5.40); RED CELL DISTRIBUTION WIDTH 17.7 % (11.5-14.5); WHITE BLOOD COUNT 7.3 x10^3/uL (4.0-11.0)
[2018-07-03 06:23] LABS: CALCIUM 8.6 mg/dL (8.5-10.1); CREATININE 0.9 mg/dL (0.6-1.0); GFR 61.5
--- NOTE | 2018-07-03 07:35 | PDOC ---
PULMONARY PROGRESS NOTES Subjective extubated 07/02, has cough, sob, on 02 3 lpm, on milrinone, Vitals Vital Signs Date Time Temp Pulse Resp B/P (MAP) Pulse Ox O2 Delivery O2 Flow Rate FiO2 07/03/18 07:02 93 Nasal Cannula 3.0 07/03/18 06:00 100 26 100/55 (70) 07/03/18 04:02 97.4 97.4 ROS: No Nausea, No Chest Pain General: Alert, No acute distress HEENT: Other (nc at perrl nose throat clear neck, no lad no thyromegaly) Lungs: Crackles, Other (decrease bs) Cardiovascular: S1, S2 Abdomen: Soft, Non-tender Neuro Exam: Alert Extremities: Other (+ edema) Skin: Warm Labs Laboratory Tests Test 07/01/18 17:17 07/01/18 20:42 07/02/18 08:10 07/02/18 08:50 Glucose (Fingerstick) 208 mg/dL (70-99) 210 mg/dL (70-99) 218 mg/dL (70-99) O2 Saturation 94 % (92-99) Arterial Blood pH 7.48 (7.35-7.45) Arterial Blood pCO2 at Patient Temp 38 mmHg (35-46) Arterial Blood pO2 at Patient Temp 74 mmHg (65-108) Arterial Blood HCO3 28 mmol/L (21-28) Arterial Blood Base Excess 4 mmol/L (-3-3) FiO2 40 Test 07/02/18 09:35 07/02/18 12:36 07/02/18 18:05 07/02/18 21:24 O2 Saturation 95 % (92-99) Arterial Blood pH 7.47 (7.35-7.45) Arterial Blood pCO2 at Patient Temp 44 mmHg (35-46) Arterial Blood pO2 at Patient Temp 77 mmHg (65-108) Arterial Blood HCO3 31 mmol/L (21-28) Arterial Blood Base Excess 7 mmol/L (-3-3) FiO2 40 Glucose (Fingerstick) 197 mg/dL (70-99) 192 mg/dL (70-99) 262 mg/dL (70-99) Test 07/03/18 05:47 White Blood Count 7.3 x10^3/uL (4.0-11.0) Red Blood Count 3.84 x10^6/uL (3.50-5.40) Hemoglobin 11.4 g/dL (12.0-15.5) Hematocrit 34.1 % (36.0-47.0) Mean Corpuscular Volume 89 fL (79-100) Mean Corpuscular Hemoglobin 30 pg (25-35) Mean Corpuscular Hemoglobin Concent 33 g/dL (31-37) Red Cell Distribution Width 17.7 % (11.5-14.5) Platelet Count 220 x10^3/uL (140-400) Neutrophils (%) (Auto) 92 % (31-73) Lymphocytes (%) (Auto) 3 % (24-48) Monocytes (%) (Auto) 4 % (0-9) Eosinophils (%) (Auto) 0 % (0-3) Basophils (%) (Auto) 1 % (0-3) Neutrophils # (Auto) 6.7 x10^3uL (1.8-7.7) Lymphocytes # (Auto) 0.2 x10^3/uL (1.0-4.8) Monocytes # (Auto) 0.3 x10^3/uL (0.0-1.1) Eosinophils # (Auto) 0.0 x10^3/uL (0.0-0.7) Basophils # (Auto) 0.0 x10^3/uL (0.0-0.2) Sodium Level 135 mmol/L (136-145) Potassium Level 4.0 mmol/L (3.5-5.1) Chloride Level 96 mmol/L (98-107) Carbon Dioxide Level 31 mmol/L (21-32) Anion Gap 8 (6-14) Blood Urea Nitrogen 18 mg/dL (7-20) Creatinine 0.9 mg/dL (0.6-1.0) Estimated GFR (Cockcroft-Gault) 61.5 Glucose Level 218 mg/dL (70-99) Calcium Level 8.6 mg/dL (8.5-10.1) Laboratory Tests Test 07/02/18 08:10 07/02/18 08:50 07/02/18 09:35 07/02/18 12:36 O2 Saturation 94 % (92-99) 95 % (92-99) Arterial Blood pH 7.48 (7.35-7.45) 7.47 (7.35-7.45) Arterial Blood pCO2 at Patient Temp 38 mmHg (35-46) 44 mmHg (35-46) Arterial Blood pO2 at Patient Temp 74 mmHg (65-108) 77 mmHg (65-108) Arterial Blood HCO3 28 mmol/L (21-28) 31 mmol/L (21-28) Arterial Blood Base Excess 4 mmol/L (-3-3) 7 mmol/L (-3-3) FiO2 40 40 Glucose (Fingerstick) 218 mg/dL (70-99) 197 mg/dL (70-99) Test 07/02/18 18:05 07/02/18 21:24 07/03/18 05:47 Glucose (Fingerstick) 192 mg/dL (70-99) 262 mg/dL (70-99) White Blood Count 7.3 x10^3/uL (4.0-11.0) Red Blood Count 3.84 x10^6/uL (3.50-5.40) Hemoglobin 11.4 g/dL (12.0-15.5) Hematocrit 34.1 % (36.0-47.0) Mean Corpuscular Volume 89 fL (79-100) Mean Corpuscular Hemoglobin 30 pg (25-35) Mean Corpuscular Hemoglobin Concent 33 g/dL (31-37) Red Cell Distribution Width 17.7 % (11.5-14.5) Platelet Count 220 x10^3/uL (140-400) Neutrophils (%) (Auto) 92 % (31-73) Lymphocytes (%) (Auto) 3 % (24-48) Monocytes (%) (Auto) 4 % (0-9) Eosinophils (%) (Auto) 0 % (0-3) Basophils (%) (Auto) 1 % (0-3) Neutrophils # (Auto) 6.7 x10^3uL (1.8-7.7) Lymphocytes # (Auto) 0.2 x10^3/uL (1.0-4.8) Monocytes # (Auto) 0.3 x10^3/uL (0.0-1.1) Eosinophils # (Auto) 0.0 x10^3/uL (0.0-0.7) Basophils # (Auto) 0.0 x10^3/uL (0.0-0.2) Sodium Level 135 mmol/L (136-145) Potassium Level 4.0 mmol/L (3.5-5.1) Chloride Level 96 mmol/L (98-107) Carbon Dioxide Level 31 mmol/L (21-32) Anion Gap 8 (6-14) Blood Urea Nitrogen 18 mg/dL (7-20) Creatinine 0.9 mg/dL (0.6-1.0) Estimated GFR (Cockcroft-Gault) 61.5 Glucose Level 218 mg/dL (70-99) Calcium Level 8.6 mg/dL (8.5-10.1) Medications Active Scripts Medications Dose Route/Sig Max Daily Dose Days Date Category Clindamycin Hcl 300 Mg Capsule 300 Mg PO QID 7 06/24/18 Rx Lasix (Furosemide) 40 Mg Tablet 40 Mg PO BID 14 06/24/18 Rx Aldactone (Spironolactone) 25 Mg Tablet 25 Mg PO DAILY MDD 1 06/24/18 Rx Lisinopril 5 Mg Tablet 2.5 Mg PO DAILY MDD 1 06/24/18 Rx Proair Hfa (Albuterol Sulfate) 8.5 Gm Hfa.aer.ad 2.5 Mg NEB PRN Q4HRS PRN MDD 1 06/24/18 Rx Aspir-Low (Aspirin) 81 Mg Tablet.dr 1 Tab PO DAILY 06/18/18 Reported Triamterene-Hctz 37.5-25 Mg Cp (Triamterene/Hydrochlorothiazid) 1 Each Capsule 1 Cap PO DAILY 06/18/18 Reported Synthroid (Levothyroxine Sodium) 88 Mcg Tablet 1 Tab PO DAILY 06/18/18 Reported Latanoprost 2.5 Ml Drops 1 Drop EACHEYE QHS 06/18/18 Reported Comments cxr reviewed, b lat infilt effusion atelectasis R>L Impression . 1. Acute hypoxic respiratory failure secondary to recent cardiac and vascular intervention and cardiogenic shock. 2. Status post cardiac catheterization with left main stent placement and successful Impella. 3. The patient with persistent bleeding from the left groin post angio seal. The patient lost pulses and had emergent vascular intervention. 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 Exploration of left common femoral artery with repair. 4. Underlying chronic obstructive pulmonary disease with [id number] tobacco history. 5. Cardiogenic shock resolved with congestive heart failure. 6. History of severe cardiomyopathy and severe diastolic dysfunction and secondary pulmonary hypertension. Plan . 1. 02 titration, start IS 2. CXR reviewed, will monitor 3. off vasopressor per Cardiology. 4. Bronchodilators. 5. Follow Vascular's recommendation. 6. Follow Cardiology's recommendations. 7. solumedrol 40 mg q 8hrs with gradual taper. 9. Monitor hemoglobin. 10. Monitor sodium. 11. pt ot 12. Diuresis per cardiology, monitor k, cr Discussed with RN and RT. JEANINE PINA MD Jul 03, 2018 07:35
[2018-07-03] MEDS: LEVOTHYROXINE 88 MCG TABLET PO SCH (08:07)
[2018-07-03] MEDS: SPIRONOLACTONE 25 MG TABLET PO SCH (08:07)
[2018-07-03] MEDS: CLOPIDOGREL BISULFATE 75 MG TABLET PO SCH (08:07)
[2018-07-03] MEDS: ASPIRIN ENTERIC COATED 81 MG TABLET.DR. PO SCH (08:07)
[2018-07-03] MEDS: POTASSIUM CHLORIDE 20 MEQ TABLET.ER. PO SCH (08:07)
[2018-07-03] MEDS: LISINOPRIL 5 MG TABLET. PO SCH (08:08)
[2018-07-03] MEDS: LACTOBACILLUS RHAMNOSUS GG 1 CAPSULE. PO SCH ×2 (08:08→22:00)
[2018-07-03] MEDS: FUROSEMIDE 40 MG/4 ML VIAL. IV SCH (08:11)
[2018-07-03] MEDS: HEPARIN for SUB-Q USE 5,000 UNIT/ML VIAL. SQ SCH ×2 (08:11→21:00)
[2018-07-03] MEDS: CHLORHEXIDINE 0.12% 15 ML MOUTHWASH. MM SCH (08:12)
[2018-07-03] MEDS: INSULIN LISPRO 300 UNITS/3 ML INSULN.PEN. SQ SCH ×3 (08:18→17:36)
--- NOTE | 2018-07-03 09:14 | PDOC ---
CARDIOLOGY PROGRESS NOTE SUBJECTIVE: No acute events overnight. Denies any chest pain. OBJECTIVE: Vital SIgns: HR 100, AF, BP 90/50's. -1.5L Objective: A/O x 3. NAD CVS: RRR PULM: Decreased right sided breath sounds. ABD: Soft, obese, NT/ND. EXT: Warm to touch. L groin c/d/i. CURRENT MEDICATIONS: CV meds: Milrinone/Lasix. ASA, plavix, Lisinopril K DIAGNOSTIC TESTING: Cr wnl. Hgb stable. ASSESSMENT: 1. 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 PAD s/p aorto-iliac stent 3. Left femoral endarterectomy 4. Acute on chronic resp failure due to COPD and above. PLAN: 1. Continue diuresis as tolerated. May need right thoracentesis if Cr rises. 2. Ok to transfer to floor. Aggressive rehab. ALYSSIA PASCUAL MD Jul 03, 2018 09:14
--- NOTE | 2018-07-03 09:14 | RAD ---
Exam performed: One view chest HISTORY: Status post CABG DATE OF SERVICE: 08/02/2018. COMPARISON: Single view chest from 07/01/2018. Single AP upright portable view chest findings: Interval extubation and removal of feeding tube. Right IJ line remains. There is cardiomegaly and continued central vascular congestion There is increasing hazy opacification in the right lung base probably a combination of infiltrate/atelectasis with pleural effusion. There is also hazy opacity in the left lung base similar to previous exam. There is no pneumothorax. IMPRESSION: 1. Increasing of hazy opacification in the right lung base likely infiltrate or atelectasis with pleural effusion. 2. Ongoing haziness left lung base. 3. Interval extubation and removal of feeding tube. Electronically signed by: Elvia Croft MD (07/03/2018 9:11 AM) [facility]
--- NOTE | 2018-07-03 09:51 | PDOC ---
Provider Note Provider Note Vascular surgery, postop day #4, progress note Patient is extubated, sitting up in bed. She complains that her legs don't feel right. Examination: Alert and oriented. Dressing the left groin is intact. Both feet are warm. Excellent Doppler signals. Patient has normal flexion and extension of her ankle and knees. Impression: Patient is doing well following vascular reconstruction with iliac artery angioplasty and stent along with left main coronary artery angioplasty and stent placement. Agree with plans for transfer to a telemetry bed. We'll continue to follow. Recommend consultation with physical therapy to assist with ambulation. From our perspective patient can begin activity as tolerated today ELSIE BEDOLLA MD Jul 03, 2018 09:51
--- NOTE | 2018-07-03 10:07 | PDOC ---
PROGRESS NOTES Chief Complaint Chief Complaint Triple vessel Disease by [facility] 06/22/18 Severe ischemic CM with EF 30% and severe left main dz Severe PAD with 80% diffuse infrarenal stenosis, 95% stenosis at aortic bifurcation. Acute on chronic CHF AECOPD/pulmonary HTN LE edema more to RLE with small superficial right posterior ulcer. PAD, poor pulses - OP arteriogram Hypothyroidism TSH 5 with T4 at goal on synthroid constipated - bowel regimen Hypokalemia . corrected Morbid obesity with likely GÓMEZ Severe onychomycoses DM2 - A1c 7.9 History of Present Illness History of Present Illness POD 4 S/p PCI of LAD, aortoiliac interventions and infrarenal aorta DBX angioplasty/stent today by [facility] [place] sx and cards. Had to return to OR for pulselessness in RLE 06/29 overnight, she has recovered well, still intubated, sheath with a-line still in place. Still intubated, no vent abnormalities BP better, labs pending. Right IJ CVC placed for pressor support. A-line out. Extubated without event yesterday. Denies CP or SOB. She is c/o about her legs, good hyperemia, however. Plan: Check CBC and BMP today Monitor UOP Vent per pulm - hopefully extubate today pending ABG results on vent wean Ok to transfer to CVC Vitals Vitals Vital Signs Date Time Temp Pulse Resp B/P (MAP) Pulse Ox O2 Delivery O2 Flow Rate FiO2 07/03/18 09:32 116 18 117/62 (80) 89 Nasal Cannula 3.0 07/03/18 07:20 97.2 97.2 Physical Exam General: No acute distress, Other (Sedated, intubated) Heart: Regular rate, Normal S1, Normal S2 Lungs: Crackles, Other (decrease bs) Abdomen: Normal bowel sounds, Soft Extremities: Other (edema) Skin: Other Labs LABS Laboratory Tests Test 07/02/18 12:36 07/02/18 18:05 07/02/18 21:24 07/03/18 05:47 Glucose (Fingerstick) 197 mg/dL (70-99) 192 mg/dL (70-99) 262 mg/dL (70-99) White Blood Count 7.3 x10^3/uL (4.0-11.0) Red Blood Count 3.84 x10^6/uL (3.50-5.40) Hemoglobin 11.4 g/dL (12.0-15.5) Hematocrit 34.1 % (36.0-47.0) Mean Corpuscular Volume 89 fL (79-100) Mean Corpuscular Hemoglobin 30 pg (25-35) Mean Corpuscular Hemoglobin Concent 33 g/dL (31-37) Red Cell Distribution Width 17.7 % (11.5-14.5) Platelet Count 220 x10^3/uL (140-400) Neutrophils (%) (Auto) 92 % (31-73) Lymphocytes (%) (Auto) 3 % (24-48) Monocytes (%) (Auto) 4 % (0-9) Eosinophils (%) (Auto) 0 % (0-3) Basophils (%) (Auto) 1 % (0-3) Neutrophils # (Auto) 6.7 x10^3uL (1.8-7.7) Lymphocytes # (Auto) 0.2 x10^3/uL (1.0-4.8) Monocytes # (Auto) 0.3 x10^3/uL (0.0-1.1) Eosinophils # (Auto) 0.0 x10^3/uL (0.0-0.7) Basophils # (Auto) 0.0 x10^3/uL (0.0-0.2) Sodium Level 135 mmol/L (136-145) Potassium Level 4.0 mmol/L (3.5-5.1) Chloride Level 96 mmol/L (98-107) Carbon Dioxide Level 31 mmol/L (21-32) Anion Gap 8 (6-14) Blood Urea Nitrogen 18 mg/dL (7-20) Creatinine 0.9 mg/dL (0.6-1.0) Estimated GFR (Cockcroft-Gault) 61.5 Glucose Level 218 mg/dL (70-99) Calcium Level 8.6 mg/dL (8.5-10.1) Test 07/03/18 07:52 Glucose (Fingerstick) 198 mg/dL (70-99) Assessment and Plan Assessmemt and Plan Problems Medical Problems: (1) Congestive heart failure Status: Acute Comment Review of Relevant I have reviewed the following items rosangela (where applicable) has been applied. Labs Laboratory Tests Test 07/01/18 17:17 07/01/18 20:42 07/02/18 08:10 07/02/18 08:50 Glucose (Fingerstick) 208 mg/dL (70-99) 210 mg/dL (70-99) 218 mg/dL (70-99) O2 Saturation 94 % (92-99) Arterial Blood pH 7.48 (7.35-7.45) Arterial Blood pCO2 at Patient Temp 38 mmHg (35-46) Arterial Blood pO2 at Patient Temp 74 mmHg (65-108) Arterial Blood HCO3 28 mmol/L (21-28) Arterial Blood Base Excess 4 mmol/L (-3-3) FiO2 40 Test 07/02/18 09:35 07/02/18 12:36 07/02/18 18:05 07/02/18 21:24 O2 Saturation 95 % (92-99) Arterial Blood pH 7.47 (7.35-7.45) Arterial Blood pCO2 at Patient Temp 44 mmHg (35-46) Arterial Blood pO2 at Patient Temp 77 mmHg (65-108) Arterial Blood HCO3 31 mmol/L (21-28) Arterial Blood Base Excess 7 mmol/L (-3-3) FiO2 40 Glucose (Fingerstick) 197 mg/dL (70-99) 192 mg/dL (70-99) 262 mg/dL (70-99) Test 07/03/18 05:47 07/03/18 07:52 White Blood Count 7.3 x10^3/uL (4.0-11.0) Red Blood Count 3.84 x10^6/uL (3.50-5.40) Hemoglobin 11.4 g/dL (12.0-15.5) Hematocrit 34.1 % (36.0-47.0) Mean Corpuscular Volume 89 fL (79-100) Mean Corpuscular Hemoglobin 30 pg (25-35) Mean Corpuscular Hemoglobin Concent 33 g/dL (31-37) Red Cell Distribution Width 17.7 % (11.5-14.5) Platelet Count 220 x10^3/uL (140-400) Neutrophils (%) (Auto) 92 % (31-73) Lymphocytes (%) (Auto) 3 % (24-48) Monocytes (%) (Auto) 4 % (0-9) Eosinophils (%) (Auto) 0 % (0-3) Basophils (%) (Auto) 1 % (0-3) Neutrophils # (Auto) 6.7 x10^3uL (1.8-7.7) Lymphocytes # (Auto) 0.2 x10^3/uL (1.0-4.8) Monocytes # (Auto) 0.3 x10^3/uL (0.0-1.1) Eosinophils # (Auto) 0.0 x10^3/uL (0.0-0.7) Basophils # (Auto) 0.0 x10^3/uL (0.0-0.2) Sodium Level 135 mmol/L (136-145) Potassium Level 4.0 mmol/L (3.5-5.1) Chloride Level 96 mmol/L (98-107) Carbon Dioxide Level 31 mmol/L (21-32) Anion Gap 8 (6-14) Blood Urea Nitrogen 18 mg/dL (7-20) Creatinine 0.9 mg/dL (0.6-1.0) Estimated GFR (Cockcroft-Gault) 61.5 Glucose Level 218 mg/dL (70-99) Calcium Level 8.6 mg/dL (8.5-10.1) Glucose (Fingerstick) 198 mg/dL (70-99) Laboratory Tests Test 07/02/18 12:36 07/02/18 18:05 07/02/18 21:24 07/03/18 05:47 Glucose (Fingerstick) 197 mg/dL (70-99) 192 mg/dL (70-99) 262 mg/dL (70-99) White Blood Count 7.3 x10^3/uL (4.0-11.0) Red Blood Count 3.84 x10^6/uL (3.50-5.40) Hemoglobin 11.4 g/dL (12.0-15.5) Hematocrit 34.1 % (36.0-47.0) Mean Corpuscular Volume 89 fL (79-100) Mean Corpuscular Hemoglobin 30 pg (25-35) Mean Corpuscular Hemoglobin Concent 33 g/dL (31-37) Red Cell Distribution Width 17.7 % (11.5-14.5) Platelet Count 220 x10^3/uL (140-400) Neutrophils (%) (Auto) 92 % (31-73) Lymphocytes (%) (Auto) 3 % (24-48) Monocytes (%) (Auto) 4 % (0-9) Eosinophils (%) (Auto) 0 % (0-3) Basophils (%) (Auto) 1 % (0-3) Neutrophils # (Auto) 6.7 x10^3uL (1.8-7.7) Lymphocytes # (Auto) 0.2 x10^3/uL (1.0-4.8) Monocytes # (Auto) 0.3 x10^3/uL (0.0-1.1) Eosinophils # (Auto) 0.0 x10^3/uL (0.0-0.7) Basophils # (Auto) 0.0 x10^3/uL (0.0-0.2) Sodium Level 135 mmol/L (136-145) Potassium Level 4.0 mmol/L (3.5-5.1) Chloride Level 96 mmol/L (98-107) Carbon Dioxide Level 31 mmol/L (21-32) Anion Gap 8 (6-14) Blood Urea Nitrogen 18 mg/dL (7-20) Creatinine 0.9 mg/dL (0.6-1.0) Estimated GFR (Cockcroft-Gault) 61.5 Glucose Level 218 mg/dL (70-99) Calcium Level 8.6 mg/dL (8.5-10.1) Test 07/03/18 07:52 Glucose (Fingerstick) 198 mg/dL (70-99) Medications Current Medications Furosemide (Lasix) 40 mg 1X ONCE IVP Last administered on 06/18/18at 14:59; Start 06/18/18 at 14:00; Stop 06/18/18 at 14:47; Status DC Aspirin (Children'S Aspirin) 324 mg 1X ONCE PO Last administered on 06/18/18at 14:59; Start 06/18/18 at 14:00; Stop 06/18/18 at 14:47; Status DC Potassium Chloride (KCl Oral Soln) 40 meq 1X ONCE PO Last administered on at 14:59; Start 06/18/18 at 15:00; Stop 06/18/18 at 15:01; Status DC Furosemide (Lasix) 40 mg DAILY IVP ; Start 06/19/18 at 09:00; Stop 06/19/18 at 09: 00; Status DC Furosemide (Lasix) 40 mg [id number] IVP ; Start 06/19/18 at 09:00; Stop 06/19/18 at 09: 00; Status DC Lisinopril (Prinivil) 2.5 mg DAILY PO Last administered on 07/03/18 08:08; Start 06/19/18 at 09:00 Furosemide (Lasix) 40 mg [id number] IV Last administered on 07/01/18 16:09; Start 06/18/18 at 16:00; Stop 07/01/18 at 17:45; Status DC Spironolactone (Aldactone) 25 mg DAILY PO Last administered on 07/03/18 08:07 ; Start 06/19/18 at 09:00 Heparin Sodium (Porcine) (Heparin Sodium) 5,000 unit Q12HR SQ Last administered on 07/03/18 08:11; Start 06/18/18 at 16:00 Sodium Chloride (Normal Saline Flush) 3 ml QSHIFT PRN IV AFTER MEDS AND BLOOD DRAWS; Start 06/18/18 at 16:00 Ondansetron HCl (Zofran) 4 mg PRN Q4HRS PRN IV NAUSEA/VOMITING; Start 06/18/18 at 16:00 Acetaminophen (Tylenol) 650 mg PRN Q4HRS PRN PO TEMP OVER 100.4F OR MILD PAIN Last administered on 06/28/18 20:56; Start 06/18/18 at 16:00 Sodium Monofluorophosphate (Fleet Adult) 133 ml PRN DAILY PRN IA CONSTIPATION; Start 06/18/18 at 16:00 Diphenhydramine HCl (Benadryl) 25 mg PRN Q4HRS PRN IVP ITCHING Last administered on 06/28/18 20:56; Start 06/18/18 at 16:00 Docusate Sodium (Colace) 100 mg PRN BID PRN PO CONSTIPATION Last administered on 06/27/18 08:41; Start 06/18/18 at 16:00 Albuterol Sulfate (Ventolin Neb Soln) 2.5 mg PRN Q4HRS PRN NEB SHORTNESS OF BREATH; Start 06/18/18 at 16:00 Albuterol/ Ipratropium (Duoneb) 3 ml Q4HRS NEB Last administered on 07/03/18 07:01; Start 06/18/18 at 16:00 Aspirin (Ecotrin) 81 mg DAILY08 PO Last administered on 06/28/18at 10:14; Start 06/19/18 at 08:00; Stop 07/01/18 at 10:41; Status DC Levothyroxine Sodium (Synthroid) 88 mcg DAILY08 PO Last administered on 08:07; Start 06/19/18 at 08:00 Latanoprost (Xalatan) 1 drop QHS OU Last administered on 07/02/18 21:27; Start 06/18/18 at 21:00 Potassium Chloride (KCl Oral Soln) 40 meq 1X ONCE PO Last administered on 13:43; Start 06/19/18 at 13:00; Stop 06/19/18 at 13:01; Status DC Insulin Glargine (Lantus) 5 units QHS SQ Last administered on 07/02/18at 21:39; Start 06/19/18 at 21:00 Insulin Human Lispro (HumaLOG) 0-5 UNITS TIDWMEALS SQ Last administered on 07/03 08:18; Start 06/19/18 at 12:30 Dextrose (Dextrose 50%-Water Syringe) 12.5 gm PRN Q15MIN PRN IV SEE COMMENTS; Start 06/19/18 at 12:15 Clindamycin Phosphate 50 ml @ 100 mls/hr Q8HRS IV Last administered on at 14:17; Start 06/21/18 at 10:00; Stop 06/24/18 at 15:00; Status DC Lactobacillus Rhamnosus (Culturelle) 1 cap BID PO Last administered on at 08:08; Start 06/21/18 at 21:00 Milrinone Lactate/ Dextrose 100 ml @ 4.022 mls/ hr CONT PRN IV SEE I/O RECORD Last administered on 07/02/18at 19:48; Start 06/22/18 at 13:00 Iodixanol (Visipaque 320) 100 ml STK-MED ONCE .ROUTE ; Start 06/23/18 at 06:35; Stop 06/23/18 at 06:36; Status DC Lidocaine HCl (Lidocaine 1% 20ml Vial) 20 ml STK-MED ONCE .ROUTE ; Start at 06:35; Stop 06/23/18 at 06:36; Status DC Heparin Sodium/ Sodium Chloride 1,500 ml @ As Directed STK-MED ONCE .ROUTE ; Start 06/23/18 at 06:35; Stop 06/23/18 at 06:36; Status DC Iodixanol (Visipaque 320) 100 ml STK-MED ONCE .ROUTE ; Start 06/23/18 at 07:26; Stop 06/23/18 at 07:27; Status DC Midazolam HCl (Versed) 2 mg STK-MED ONCE .ROUTE ; Start 06/23/18 at 07:30; Stop 06/23/18 at 07:31; Status DC Fentanyl Citrate (Fentanyl 2ml Vial) 100 mcg STK-MED ONCE .ROUTE ; Start at 07:30; Stop 06/23/18 at 07:31; Status DC Verapamil HCl (Verapamil) 5 mg STK-MED ONCE .ROUTE ; Start 06/23/18 at 07:30; Stop 06/23/18 at 07:31; Status DC Heparin Sodium (Porcine) (Heparin Sodium) 10,000 unit STK-MED ONCE .ROUTE ; Start 06/23/18 at 07:30; Stop 06/23/18 at 07:31; Status DC Nitroglycerin (Nitroglycerin) 200 mcg STK-MED ONCE .ROUTE ; Start 06/23/18 at 07 :30; Stop 06/23/18 at 07:31; Status DC Nitroglycerin (Nitroglycerin) 200 mcg 1X ONCE IART Last administered on at 08:20; Start 06/23/18 at 08:15; Stop 06/23/18 at 08:18; Status DC Verapamil HCl (Verapamil) 2.5 mg 1X ONCE IART Last administered on 06/23/18at 08:22; Start 06/23/18 at 08:15; Stop 06/23/18 at 08:18; Status DC Heparin Sodium (Porcine) (Heparin Sodium) 2,500 unit 1X ONCE IART Last administered on 06/23/18at 08:23; Start 06/23/18 at 08:15; Stop 06/23/18 at 08:18 ; Status DC Heparin Sodium/ Sodium Chloride (HEPARIN for ARTERIAL LINE FLUSH) 1,000 unit 1X ONCE IART Last administered on 06/23/18 08:20; Start 06/23/18 at 08:15; Stop 06/23/18 at 08:18; Status DC Heparin Sodium/ Sodium Chloride (HEPARIN for ARTERIAL LINE FLUSH) 1,000 unit 1X ONCE IART Last administered on 06/23/18 08:20; Start 06/23/18 at 08:15; Stop 06/23/18 at 08:18; Status DC Midazolam HCl (Versed) 1.5 mg 1X ONCE IV Last administered on 06/23/18 08:21 ; Start 06/23/18 at 08:15; Stop 06/23/18 at 08:18; Status DC Fentanyl Citrate (Fentanyl 2ml Vial) 75 mcg 1X ONCE IV Last administered on 08:22; Start 06/23/18 at 08:15; Stop 06/23/18 at 08:18; Status DC Iodixanol (Visipaque 320) 99 ml 1X ONCE IART Last administered on 06/23/18 08 :20; Start 06/23/18 at 08:15; Stop 06/23/18 at 08:18; Status DC Lidocaine HCl (Lidocaine 1% 20ml Vial) 1 ml 1X ONCE INJ Last administered on 08:20; Start 06/23/18 at 08:15; Stop 06/23/18 at 08:18; Status DC Info (CONTRAST GIVEN -- Rx MONITORING) 1 each PRN DAILY PRN MC SEE COMMENTS; Start 06/23/18 at 08:30; Stop 06/25/18 at 08:29; Status DC Sodium Chloride 250 ml @ 250 mls/hr 1X ONCE IV Last administered on at 11:07; Start 06/23/18 at 11:15; Stop 06/23/18 at 12:14; Status DC Furosemide (Lasix) 40 mg 1X ONCE IVP Last administered on 06/23/18at 20:46; Start 06/23/18 at 20:15; Stop 06/23/18 at 20:19; Status DC Magnesium Sulfate 50 ml @ 25 mls/hr 1X ONCE IV Last administered on 06/24/18at 14:13; Start 06/24/18 at 12:30; Stop 06/24/18 at 14:29; Status DC Potassium Chloride (Klor-Con) 40 meq 1X ONCE PO Last administered on at 14:14; Start 06/24/18 at 12:30; Stop 06/24/18 at 12:31; Status DC Clindamycin HCl (Cleocin) 300 mg QID PO Last administered on 06/28/18at 20:56; Start 06/24/18 at 21:00; Stop 06/29/18 at 15:41; Status DC Potassium Chloride (Klor-Con) 40 meq DAILY PO Last administered on 07/03/18at 08 :07; Start 06/25/18 at 11:15 Magnesium Sulfate 50 ml @ 25 mls/hr 1X ONCE IV Last administered on 06/25/18at 12:07; Start 06/25/18 at 11:15; Stop 06/25/18 at 13:14; Status DC Potassium Chloride (Klor-Con) 40 meq 1X ONCE PO Last administered on at 08:50; Start 06/26/18 at 07:45; Stop 06/26/18 at 07:50; Status DC Clopidogrel Bisulfate (Plavix) 300 mg 1X ONCE PO Last administered on at 13:10; Start 06/26/18 at 11:00; Stop 06/26/18 at 11:06; Status DC Clopidogrel Bisulfate (Plavix) 75 mg DAILYWBKFT PO Last administered on at 08:07; Start 06/27/18 at 08:00 Methylprednisolone Sodium Succinate (SOLU-Medrol 40MG VIAL) 40 mg Q8HRS IV Last administered on 07/03/18at 05:40; Start 06/27/18 at 09:15 Atorvastatin Calcium (Lipitor) 40 mg QHS PO Last administered on 07/02/18at 21: 28; Start 06/28/18 at 21:00 Heparin Sodium (Porcine) 5000 unit/Sodium Chloride 505 ml @ 505 mls/hr 1X ONCE IRR ; Start 06/29/18 at 06:00; Stop 06/29/18 at 06:59; Status DC Cefazolin Sodium/ Dextrose 50 ml @ 100 mls/hr 1X PREOP PRN IV on hold OR; Start 06/29/18 at 06:00; Stop 06/29/18 at 11:19; Status DC Ondansetron HCl (Zofran) 4 mg PRN Q6HRS PRN IV NAUSEA/VOMITING; Start 06/29/18 at 07:00; Stop 06/30/18 at 06:59; Status DC Fentanyl Citrate (Fentanyl 2ml Vial) 25 mcg PRN Q5MIN PRN IV MILD PAIN; Start 06/29/18 at 07:00; Stop 06/30/18 at 06:59; Status DC Fentanyl Citrate (Fentanyl 2ml Vial) 50 mcg PRN Q5MIN PRN IV MODERATE TO SEVERE PAIN; Start 06/29/18 at 07:00; Stop 06/30/18 at 06:59; Status DC Morphine Sulfate (Morphine Sulfate) 1 mg PRN Q10MIN PRN IV SEVERE PAIN; Start 06/29/18 at 07:00; Stop 06/30/18 at 06:59; Status DC Ringer's Solution 1,000 ml @ 30 mls/hr Q24H IV Last administered on 06/29/18at 10:12; Start 06/29/18 at 07:00; Stop 06/29/18 at 18:59; Status DC Lidocaine HCl (Xylocaine-Mpf 1% 2ml Vial) 2 ml PRN 1X PRN ID PRIOR TO IV START ; Start 06/29/18 at 07:00; Stop 06/30/18 at 06:59; Status DC Hydromorphone HCl (Dilaudid) 0.5 mg PRN Q10MIN PRN IV SEV PAIN, Second choice; Start 06/29/18 at 07:00; Stop 06/30/18 at 06:59; Status DC Prochlorperazine Edisylate (Compazine) 5 mg PACU PRN PRN IV NAUSEA, MRX1; Start 06/29/18 at 07:00; Stop 06/30/18 at 06:59; Status DC Bupivacaine HCl/ Epinephrine Bitart (Sensorcain-Mpf Epi 0.5%-1:[id number]) 30 ml STK -MED ONCE .ROUTE ; Start 06/29/18 at 05:59; Stop 06/29/18 at 06:59; Status DC Gelatin (Gelfoam Size 12-7mm) 1 each STK-MED ONCE .ROUTE ; Start 06/29/18 at 05 :59; Stop 06/29/18 at 06:59; Status DC Iohexol (Omnipaque 300 Mg/ml) 100 ml STK-MED ONCE .ROUTE ; Start 06/29/18 at 05: 59; Stop 06/29/18 at 07:00; Status DC Bupivacaine HCl (Sensorcaine Mpf 0.25%) 30 ml STK-MED ONCE .ROUTE ; Start at 05:59; Stop 06/29/18 at 07:00; Status DC Papaverine HCl 60 mg STK-MED ONCE .ROUTE ; Start 06/29/18 at 06:00; Stop at 07:01; Status DC Thrombin 20,000 unit STK-MED ONCE TP ; Start 06/29/18 at 06:00; Stop 06/29/18 at 07:01; Status DC Sodium Chloride (SODIUM CHLORIDE 20ml) 20 ml STK-MED ONCE IJ ; Start 06/29/18 at 09:46; Stop 06/29/18 at 09:47; Status DC Famotidine (Pepcid Vial) 20 mg STK-MED ONCE .ROUTE ; Start 06/29/18 at 09:46; Stop 06/29/18 at 09:47; Status DC Ondansetron HCl (Zofran) 4 mg STK-MED ONCE .ROUTE ; Start 06/29/18 at 09:46; Stop 06/29/18 at 09:47; Status DC Dexamethasone Sodium Phosphate (Decadron) 20 mg STK-MED ONCE .ROUTE ; Start at 09:46; Stop 06/29/18 at 09:47; Status DC Lidocaine HCl (Lidocaine Pf 2% Vial) 5 ml STK-MED ONCE .ROUTE ; Start 06/29/18 at 09:46; Stop 06/29/18 at 09:47; Status DC Etomidate (Amidate) 20 mg STK-MED ONCE IV ; Start 06/29/18 at 09:46; Stop at 09:47; Status DC Phenylephrine HCl (PHENYLEPHRINE in 0.9% NACL PF) 1 mg STK-MED ONCE IV ; Start 06/29/18 at 09:46; Stop 06/29/18 at 09:47; Status DC Fentanyl Citrate (Fentanyl 2ml Vial) 100 mcg STK-MED ONCE .ROUTE ; Start at 09:47; Stop 06/29/18 at 09:48; Status DC Hydromorphone HCl (Dilaudid) 2 mg STK-MED ONCE .ROUTE ; Start 06/29/18 at 09:47 ; Stop 06/29/18 at 09:48; Status DC Glycopyrrolate (Robinul) 1 mg STK-MED ONCE .ROUTE ; Start 06/29/18 at 09:47; Stop 06/29/18 at 09:48; Status DC Rocuronium [place] (Zemuron) 100 mg STK-MED ONCE .ROUTE ; Start 06/29/18 at 09: 47; Stop 06/29/18 at 09:48; Status DC Neostigmine Methylsulfate (Neostigmine Methylsulfate) 5 mg STK-MED ONCE .ROUTE ; Start 06/29/18 at 09:47; Stop 06/29/18 at 09:48; Status DC Albumin Human 0 ml @ As Directed STK-MED ONCE IV ; Start 06/29/18 at 09:48; Stop 06/29/18 at 09:49; Status DC Iodixanol (Visipaque 320) 100 ml STK-MED ONCE .ROUTE ; Start 06/29/18 at 10:11; Stop 06/29/18 at 10:12; Status DC Lidocaine HCl (Lidocaine 1% 20ml Vial) 20 ml STK-MED ONCE .ROUTE ; Start at 10:11; Stop 06/29/18 at 10:12; Status DC Iodixanol (Visipaque 320) 50 ml STK-MED ONCE .ROUTE ; Start 06/29/18 at 10:11; Stop 06/29/18 at 10:12; Status DC Heparin Sodium/ Sodium Chloride 1,000 ml @ As Directed STK-MED ONCE .ROUTE ; Start 06/29/18 at 10:11; Stop 06/29/18 at 10:12; Status DC Bupivacaine HCl (Sensorcaine Mpf 0.5%) 30 ml STK-MED ONCE .ROUTE Last administered on 06/29/18at 12:42; Start 06/29/18 at 09:59; Stop 06/29/18 at 10:59 ; Status DC Bacitracin (Bacitracin) 50,000 unit STK-MED ONCE IRR ; Start 06/29/18 at 10:00; Stop 06/29/18 at 11:00; Status DC Vancomycin HCl 250 ml @ 250 mls/hr 1X ONCE IV Last administered on 06/29/18at 11:15; Start 06/29/18 at 11:15; Stop 06/29/18 at 12:14; Status DC Heparin Sodium (Porcine) (Heparin Sodium) 10,000 unit STK-MED ONCE .ROUTE ; Start 06/29/18 at 11:49; Stop 06/29/18 at 11:50; Status DC Cellulose (Surgicel Fibrillar 1x2) 1 each STK-MED ONCE .ROUTE ; Start 06/29/18 at 11:50; Stop 06/29/18 at 11:51; Status DC Phenylephrine HCl (Justin-Synephrine Inj) 10 mg STK-MED ONCE .ROUTE ; Start at 11:57; Stop 06/29/18 at 11:58; Status DC Sevoflurane (Ultane) 90 ml STK-MED ONCE IH ; Start 06/29/18 at 12:07; Stop 06/29 at 12:08; Status DC Heparin Sodium/ Sodium Chloride 500 ml @ As Directed STK-MED ONCE .ROUTE ; Start 06/29/18 at 12:35; Stop 06/29/18 at 12:36; Status DC Iodixanol (Visipaque 320) 100 ml STK-MED ONCE .ROUTE ; Start 06/29/18 at 12:52; Stop 06/29/18 at 12:53; Status DC Iodixanol (Visipaque 320) 100 ml STK-MED ONCE .ROUTE ; Start 06/29/18 at 13:17; Stop 06/29/18 at 13:18; Status DC Lidocaine HCl (Lidocaine 1% 20ml Vial) 20 ml STK-MED ONCE .ROUTE ; Start at 13:17; Stop 06/29/18 at 13:18; Status DC Heparin Sodium/ Sodium Chloride 1,000 ml @ As Directed STK-MED ONCE .ROUTE ; Start 06/29/18 at 13:18; Stop 06/29/18 at 13:19; Status DC Heparin Sodium (Porcine) (Heparin Sodium) 10,000 unit STK-MED ONCE .ROUTE ; Start 06/29/18 at 13:19; Stop 06/29/18 at 13:20; Status DC Heparin Sodium/ Sodium Chloride (HEPARIN for ARTERIAL LINE FLUSH) 1,000 unit 1X ONCE IART Last administered on 06/29/18at 14:15; Start 06/29/18 at 14:15; Stop 06/29/18 at 14:16; Status DC Heparin Sodium/ Sodium Chloride (HEPARIN for ARTERIAL LINE FLUSH) 1,000 unit 1X ONCE IART Last administered on 06/29/18at 14:15; Start 06/29/18 at 14:15; Stop 06/29/18 at 14:16; Status DC Heparin Sodium (Porcine) (Heparin Sodium) 4,000 unit 1X ONCE IV Last administered on 06/29/18at 14:15; Start 06/29/18 at 14:15; Stop 06/29/18 at 14:16 ; Status DC Iodixanol (Visipaque 320) 100 ml 1X ONCE IART Last administered on 06/29/18at 14:30; Start 06/29/18 at 14:30; Stop 06/29/18 at 14:31; Status DC Heparin Sodium/ Sodium Chloride 500 ml @ As Directed STK-MED ONCE .ROUTE ; Start 06/29/18 at 14:35; Stop 06/29/18 at 14:36; Status DC Nitroglycerin (Nitroglycerin) 200 mcg 1X ONCE IART Last administered on at 15:30; Start 06/29/18 at 15:30; Stop 06/29/18 at 15:31; Status DC Iodixanol (Visipaque 320) 100 ml STK-MED ONCE .ROUTE ; Start 06/29/18 at 15:51; Stop 06/29/18 at 15:52; Status DC Iodixanol (Visipaque 320) 100 ml STK-MED ONCE .ROUTE ; Start 06/29/18 at 16:52; Stop 06/29/18 at 16:53; Status DC Aspirin (Aspirin) 300 mg 1X ONCE IA Last administered on 06/29/18at 18:18; Start 06/29/18 at 17:30; Stop 06/29/18 at 17:31; Status DC Clopidogrel Bisulfate (Plavix) 300 mg 1X ONCE PO Last administered on at 18:18; Start 06/29/18 at 17:30; Stop 06/29/18 at 17:31; Status DC Fentanyl Citrate 30 ml @ 0 mls/hr CONT PRN IV SEE PROTOCOL Last administered on 07/01/18at 04:49; Start 06/29/18 at 17:30; Stop 07/02/18 at 15:47; Status DC Fentanyl Citrate (Fentanyl 2ml Vial) 25 mcg PRN Q1HR PRN IV SEE COMMENTS Last administered on 07/01/18at 14:48; Start 06/29/18 at 17:30 Fentanyl Citrate (Fentanyl 2ml Vial) 50 mcg PRN Q1HR PRN IV SEE COMMENTS; Start 06/29/18 at 17:30 Chlorhexidine Gluconate (Peridex) 15 ml BID MM Last administered on 07/02/18at 21:47; Start 06/29/18 at 21:00 Morphine Sulfate (Morphine Sulfate) 2 mg PRN Q1HR PRN IV SEE COMMENTS.; Start 06/29/18 at 17:30 Morphine Sulfate (Morphine Sulfate) 4 mg PRN Q1HR PRN IV SEE COMMENTS.; Start 06/29/18 at 17:30 Midazolam HCl 100 ml @ 0 mls/hr CONT PRN IV SEE PROTOCOL Last administered on at 12:04; Start 06/29/18 at 17:30 Vecuronium [place] (Norcuron Bolus) 6 mg PRN Q2HRS PRN IV ANXIETY / AGITATION; Start 06/29/18 at 17:30; Stop 07/02/18 at 15:47; Status DC Heparin Sodium (Porcine) 5000 unit/Sodium Chloride 505 ml @ 505 mls/hr 1X ONCE IRR Last administered on 06/29/18at 20:34; Start 06/29/18 at 19:30; Stop at 20:30; Status DC Iohexol (Omnipaque 300 Mg/ml) 100 ml STK-MED ONCE .ROUTE ; Start 06/29/18 at 18: 16; Stop 06/29/18 at 19:17; Status DC Cellulose (Surgicel Fibrillar 1x2) 1 each STK-MED ONCE .ROUTE ; Start 06/29/18 at 19:17; Stop 06/29/18 at 19:18; Status DC Rocuronium [place] (Zemuron) 50 mg STK-MED ONCE .ROUTE ; Start 06/29/18 at 19:42 ; Stop 06/29/18 at 19:43; Status DC Vancomycin HCl 1 gm/Sodium Chloride 250 ml @ 250 mls/hr 1X ONCE IV Last administered on 06/29/18at 20:34; Start 06/29/18 at 20:45; Stop 06/29/18 at 21:44 ; Status DC Vancomycin HCl 250 ml @ 250 mls/hr 1X ONCE IV ; Start 06/29/18 at 20:45; Stop 06/29/18 at 21:44; Status UNV Hydrocortisone Sodium Succinate (Solu-CORTEF) 100 mg STK-MED ONCE .ROUTE ; Start 06/29/18 at 20:50; Stop 06/29/18 at 20:51; Status DC Heparin Sodium (Porcine) (Heparin Sodium) 10,000 unit STK-MED ONCE .ROUTE ; Start 06/29/18 at 21:01; Stop 06/29/18 at 21:02; Status DC Phenylephrine HCl (PHENYLEPHRINE in 0.9% NACL PF) 1 mg STK-MED ONCE IV ; Start 06/29/18 at 21:35; Stop 06/29/18 at 21:36; Status DC Sevoflurane (Ultane) 90 ml STK-MED ONCE IH ; Start 06/29/18 at 21:36; Stop 06/29 at 21:37; Status DC Protamine Sulfate (Protamine) 50 mg STK-MED ONCE IV ; Start 06/29/18 at 21:45; Stop 06/29/18 at 21:46; Status DC Cellulose (Surgicel Fibrillar 1x2) 1 each STK-MED ONCE TP Last administered on 06/29/18at 21:52; Start 06/29/18 at 21:52; Stop 06/29/18 at 21:58; Status DC Sodium Chloride 500 ml @ 500 mls/hr 1X ONCE IV Last administered on at 23:47; Start 06/29/18 at 23:00; Stop 06/29/18 at 23:59; Status DC Sodium Chloride 500 ml @ 500 mls/hr 1X ONCE IV Last administered on at 00:27; Start 06/30/18 at 00:00; Stop 06/30/18 at 00:59; Status DC Norepinephrine Bitartrate 250 ml @ 1.875 mls/ hr CONT PRN IV SEE I/O RECORD Last administered on 06/30/18at 00:26; Start 06/29/18 at 23:45 Rocuronium [place] (Zemuron) 50 mg STK-MED ONCE .ROUTE ; Start 06/29/18 at 12:00 ; Stop 06/30/18 at 08:09; Status DC Aspirin (Aspirin) 300 mg DAILY IA Last administered on 07/02/18at 08:47; Start 06/30/18 at 10:00; Stop 07/02/18 at 15:43; Status DC Potassium Chloride (KCl Oral Soln) 40 meq DAILY PEG Last administered on at 08:43; Start 06/30/18 at 10:00; Stop 07/02/18 at 15:43; Status DC Cefazolin Sodium/ Dextrose (Ancef 2gm Premix) 2 gm STK-MED ONCE IV ; Start 06/29 at 11:00; Stop 06/30/18 at 12:24; Status DC Hydralazine HCl (Apresoline Inj) 10 mg PRN Q6HRS PRN IVP ELEVATED BP, SEE COMMENTS; Start 06/30/18 at 14:00; Status UNV Albumin Human 100 ml @ 100 mls/hr 1X ONCE IV Last administered on 06/30/18at 19:39; Start 06/30/18 at 19:15; Stop 06/30/18 at 20:14; Status DC Phenylephrine HCl (PHENYLEPHRINE in 0.9% NACL PF) 0.1 mg 1X ONCE IV Last administered on 06/30/18at 19:15; Start 06/30/18 at 19:15; Stop 06/30/18 at 19:16 ; Status DC Aspirin (Ecotrin) 81 mg PRN DAILY PRN PO WHEN PO TOLERATED; Start 07/01/18 at 10:45; Stop 07/02/18 at 15:43; Status DC Fentanyl Citrate (Fentanyl 2ml Vial) 25 mcg PRN Q1HR PRN IV SEE COMMENTS; Start 07/01/18 at 13:30; Stop 07/02/18 at 09:04; Status DC Fentanyl Citrate (Fentanyl 2ml Vial) 50 mcg PRN Q1HR PRN IV SEE COMMENTS; Start 07/01/18 at 13:30; Stop 07/02/18 at 09:04; Status DC Chlorhexidine Gluconate (Peridex) 15 ml BID MM ; Start 07/01/18 at 21:00; Status Cancel Dexmedetomidine HCl 200 mcg/ Sodium Chloride 50 ml @ 0 mls/hr CONT PRN IV PER PROTOCOL Last administered on 07/02/18at 01:52; Start 07/01/18 at 13:30 Sodium Chloride 500 ml @ 500 mls/hr 1X PRN PRN IV SEE COMMENTS; Start at 13:30 Atropine Sulfate (ATROPINE 0.5mg SYRINGE) 0.5 mg PRN Q5MIN PRN IV SEE COMMENTS ; Start 07/01/18 at 13:30 Furosemide (Lasix) 40 mg DAILY IV Last administered on 07/03/18at 08:11; Start 07/02/18 at 09:00 Aspirin (Ecotrin) 81 mg DAILY08 PO Last administered on 07/03/18at 08:07; Start 07/03/18 at 08:00 Furosemide (Lasix) 40 mg 1X ONCE IVP Last administered on 07/02/18at 21:30; Start 07/02/18 at 21:00; Stop 07/02/18 at 21:01; Status DC Active Scripts Active Clindamycin Hcl 300 Mg Capsule 300 Mg PO QID 7 Days Lasix (Furosemide) 40 Mg Tablet 40 Mg PO BID 14 Days Aldactone (Spironolactone) 25 Mg Tablet 25 Mg PO DAILY MDD 1 Lisinopril 5 Mg Tablet 2.5 Mg PO DAILY MDD 1 Proair Hfa (Albuterol Sulfate) 8.5 Gm Hfa.aer.ad 2.5 Mg NEB PRN Q4HRS PRN MDD 1 Reported Aspir-Low (Aspirin) 81 Mg Tablet. 1 Tab PO DAILY Triamterene-Hctz 37.5-25 Mg Cp (Triamterene/Hydrochlorothiazid) 1 Each Capsule 1 Cap PO DAILY Synthroid (Levothyroxine Sodium) 88 Mcg Tablet 1 Tab PO DAILY Latanoprost 2.5 Ml Drops 1 Drop EACHEYE [facility] Vitals/I & O Vital Sign - Last 24 Hours 07/02/18 07/02/18 07/02/18 07/02/18 10:30 11:00 12:00 12:00 Temp 96.6 96.6 Pulse 72 80 Resp 14 22 B/P (MAP) 95/54 (68) 102/56 (71) Pulse Ox 98 99 O2 Delivery Nasal Cannula Nasal Cannula Nasal Cannula Nasal Cannula O2 Flow Rate 3.0 3.0 3.0 3.0 07/02/18 07/02/18 07/02/18 07/02/18 12:03 13:00 14:00 15:00 Temp 98.0 98.0 Pulse 76 82 90 Resp 20 22 26 B/P (MAP) 91/50 (64) 93/51 (65) 98/62 (74) Pulse Ox 100 93 96 94 O2 Delivery Nasal Cannula Nasal Cannula Nasal Cannula Nasal Cannula O2 Flow Rate 3.0 3.0 3.0 3.0 07/02/18 07/02/18 07/02/18 07/02/18 15:58 16:00 16:00 17:00 Temp 97.8 97.8 Pulse 94 84 Resp 24 16 B/P (MAP) 101/62 (75) 83/45 (58) Pulse Ox 97 95 92 O2 Delivery Nasal Cannula Nasal Cannula Nasal Cannula Nasal Cannula O2 Flow Rate 2.0 3.0 3.0 3.0 07/02/18 07/02/18 07/02/18 07/02/18 18:00 19:30 19:43 20:15 Temp 97.4 97.4 Pulse 88 105 Resp 16 20 B/P (MAP) 132/65 (87) 105/54 (71) Pulse Ox 94 92 92 O2 Delivery Nasal Cannula Nasal Cannula Nasal Cannula Nasal Cannula O2 Flow Rate 3.0 3.0 3.0 3.0 07/02/18 07/02/18 07/02/18 07/02/18 21:00 22:01 23:00 23:49 Pulse 99 103 104 B/P (MAP) 97/52 (67) 106/60 (75) 107/65 (79) Pulse Ox 94 92 95 95 O2 Delivery Nasal Cannula Nasal Cannula Nasal Cannula Nasal Cannula O2 Flow Rate 3.0 3.0 3.0 3.0 07/03/18 07/03/18 07/03/18 07/03/18 00:16 00:20 01:12 02:01 Temp 97.4 97.4 Pulse 91 98 71 Resp 19 B/P (MAP) 99/57 (71) 98/54 (69) 109/58 (75) Pulse Ox 92 94 99 O2 Delivery Nasal Cannula Nasal Cannula Nasal Cannula Nasal Cannula O2 Flow Rate 3.0 3.0 3.0 3.0 07/03/18 07/03/18 07/03/18 07/03/18 03:05 03:42 04:02 04:02 Temp 97.4 97.4 Pulse 101 102 Resp 20 B/P (MAP) 101/54 (70) 106/52 (70) Pulse Ox 95 95 92 O2 Delivery Nasal Cannula Nasal Cannula Nasal Cannula Nasal Cannula O2 Flow Rate 3.0 3.0 3.0 3.0 07/03/18 07/03/18 07/03/18 07/03/18 06:00 07:02 07:20 08:00 Temp 97.2 97.2 Pulse 100 102 104 Resp 26 20 22 B/P (MAP) 100/55 (70) 121/64 (83) 113/63 (80) Pulse Ox 93 93 94 94 O2 Delivery Nasal Cannula Nasal Cannula Nasal Cannula Nasal Cannula O2 Flow Rate 3.0 3.0 3.0 3.0 07/03/18 07/03/18 07/03/18 08:00 08:08 09:32 Pulse 100 116 Resp 18 B/P (MAP) 113/63 117/62 (80) Pulse Ox 89 O2 Delivery Nasal Cannula Nasal Cannula O2 Flow Rate 3.0 3.0 Intake and Output 07/02/18 07/02/18 07/03/18 15:00 23:00 07:00 Intake Total 312 ml 220 ml Output Total 225 ml 150 ml 800 ml Balance -225 ml 162 ml -580 ml JAN FLORES MD Jul 03, 2018 10:07
--- NOTE | 2018-07-03 21:05 | NUR ---
blood noted in pt alvarez catheter, some oozing noted on pt abdomen from previous heparin sq injection, dr singer notified, order given to hold tonights dose. will cont to monitor for changes. call light in reach. pmrn
[2018-07-03] MEDS: ATORVASTATIN CALCIUM 40 MG TABLET. PO SCH (22:00)
[2018-07-03] MEDS: LATANOPROST 0.005% OPHTH SOLUTION 2.5ML BOTTLE. OU SCH (22:03)
[2018-07-03] MEDS: INSULIN GLARGINE 300 UNITS/3 ML INSULN.PEN. SQ SCH (22:12)
[2018-07-04] VITALS (7 sets, daily range): BP systolic 119–146; BP diastolic 66–92
[2018-07-04] MEDS: MILRINONE 20MG/100ML PREMIX 100 ML IV PRN (00:06)
[2018-07-04] MEDS: IPRATRPIUM/ALBUTEROL 0.5/2.5MG 3 ML NEBU. NEB SCH ×5 (04:00→20:02)
[2018-07-04] MEDS: LEVOTHYROXINE 88 MCG TABLET PO SCH (06:14)
[2018-07-04] MEDS: methylPREDNISolone SOD SUCC PF 40 MG/ML VIAL. IV SCH ×2 (06:14→20:54)
[2018-07-04 06:32] LABS: BASO % 0 % (0-3); EOS % 0 % (0-3); HEMATOCRIT 34.7 % (36.0-47.0); HEMOGLOBIN 11.2 g/dL (12.0-15.5); LYMPH # 0.4 x10^3/uL (1.0-4.8); LYMPH % 5 % (24-48); MEAN CORPUSCULAR HEMOGLOBIN 29 pg (25-35); MEAN CORPUSCULAR HGB CONC 32 g/dL (31-37); MEAN CORPUSCULAR VOLUME 89 fL (79-100); MONO # 0.4 x10^3/uL (0.0-1.1); MONO % 5 % (0-9); NEUT # 6.3 x10^3uL (1.8-7.7); NEUT % 89 % (31-73); PLATELET COUNT 238 x10^3/uL (140-400); RED CELL DISTRIBUTION WIDTH 18.3 % (11.5-14.5); WHITE BLOOD COUNT 7.1 x10^3/uL (4.0-11.0)
[2018-07-04 06:47] LABS: CALCIUM 8.6 mg/dL (8.5-10.1); CREATININE 0.9 mg/dL (0.6-1.0); GFR 61.5; POTASSIUM 4.5 mmol/L (3.5-5.1)
--- NOTE | 2018-07-04 07:57 | PDOC ---
PULMONARY PROGRESS NOTES Subjective extubated 07/02, has cough, yellow sputum, sob, on 02 3 lpm, on milrinone Vitals Vital Signs Date Time Temp Pulse Resp B/P (MAP) Pulse Ox O2 Delivery O2 Flow Rate FiO2 07/04/18 07:47 97.8 113 18 119/66 (83) 88 Nasal Cannula 3.0 97.8 ROS: No Nausea, No Chest Pain General: Alert, No acute distress HEENT: Other (nc at perrl nose throat clear neck, no lad no thyromegaly) Lungs: Crackles, Other (decrease bs) Cardiovascular: S1, S2 Abdomen: Soft, Non-tender Neuro Exam: Alert Extremities: Other (+ edema) Skin: Warm Labs Laboratory Tests Test 07/02/18 08:10 07/02/18 08:50 07/02/18 09:35 07/02/18 12:36 O2 Saturation 94 % (92-99) 95 % (92-99) Arterial Blood pH 7.48 (7.35-7.45) 7.47 (7.35-7.45) Arterial Blood pCO2 at Patient Temp 38 mmHg (35-46) 44 mmHg (35-46) Arterial Blood pO2 at Patient Temp 74 mmHg (65-108) 77 mmHg (65-108) Arterial Blood HCO3 28 mmol/L (21-28) 31 mmol/L (21-28) Arterial Blood Base Excess 4 mmol/L (-3-3) 7 mmol/L (-3-3) FiO2 40 40 Glucose (Fingerstick) 218 mg/dL (70-99) 197 mg/dL (70-99) Test 07/02/18 18:05 07/02/18 21:24 07/03/18 05:47 07/03/18 07:52 Glucose (Fingerstick) 192 mg/dL (70-99) 262 mg/dL (70-99) 198 mg/dL (70-99) White Blood Count 7.3 x10^3/uL (4.0-11.0) Red Blood Count 3.84 x10^6/uL (3.50-5.40) Hemoglobin 11.4 g/dL (12.0-15.5) Hematocrit 34.1 % (36.0-47.0) Mean Corpuscular Volume 89 fL (79-100) Mean Corpuscular Hemoglobin 30 pg (25-35) Mean Corpuscular Hemoglobin Concent 33 g/dL (31-37) Red Cell Distribution Width 17.7 % (11.5-14.5) Platelet Count 220 x10^3/uL (140-400) Neutrophils (%) (Auto) 92 % (31-73) Lymphocytes (%) (Auto) 3 % (24-48) Monocytes (%) (Auto) 4 % (0-9) Eosinophils (%) (Auto) 0 % (0-3) Basophils (%) (Auto) 1 % (0-3) Neutrophils # (Auto) 6.7 x10^3uL (1.8-7.7) Lymphocytes # (Auto) 0.2 x10^3/uL (1.0-4.8) Monocytes # (Auto) 0.3 x10^3/uL (0.0-1.1) Eosinophils # (Auto) 0.0 x10^3/uL (0.0-0.7) Basophils # (Auto) 0.0 x10^3/uL (0.0-0.2) Sodium Level 135 mmol/L (136-145) Potassium Level 4.0 mmol/L (3.5-5.1) Chloride Level 96 mmol/L (98-107) Carbon Dioxide Level 31 mmol/L (21-32) Anion Gap 8 (6-14) Blood Urea Nitrogen 18 mg/dL (7-20) Creatinine 0.9 mg/dL (0.6-1.0) Estimated GFR (Cockcroft-Gault) 61.5 Glucose Level 218 mg/dL (70-99) Calcium Level 8.6 mg/dL (8.5-10.1) Test 07/03/18 11:26 07/03/18 17:34 07/03/18 21:26 07/04/18 06:20 Glucose (Fingerstick) 224 mg/dL (70-99) 246 mg/dL (70-99) 217 mg/dL (70-99) White Blood Count 7.1 x10^3/uL (4.0-11.0) Red Blood Count 3.90 x10^6/uL (3.50-5.40) Hemoglobin 11.2 g/dL (12.0-15.5) Hematocrit 34.7 % (36.0-47.0) Mean Corpuscular Volume 89 fL (79-100) Mean Corpuscular Hemoglobin 29 pg (25-35) Mean Corpuscular Hemoglobin Concent 32 g/dL (31-37) Red Cell Distribution Width 18.3 % (11.5-14.5) Platelet Count 238 x10^3/uL (140-400) Neutrophils (%) (Auto) 89 % (31-73) Lymphocytes (%) (Auto) 5 % (24-48) Monocytes (%) (Auto) 5 % (0-9) Eosinophils (%) (Auto) 0 % (0-3) Basophils (%) (Auto) 0 % (0-3) Neutrophils # (Auto) 6.3 x10^3uL (1.8-7.7) Lymphocytes # (Auto) 0.4 x10^3/uL (1.0-4.8) Monocytes # (Auto) 0.4 x10^3/uL (0.0-1.1) Eosinophils # (Auto) 0.0 x10^3/uL (0.0-0.7) Basophils # (Auto) 0.0 x10^3/uL (0.0-0.2) Sodium Level 133 mmol/L (136-145) Potassium Level 4.5 mmol/L (3.5-5.1) Chloride Level 97 mmol/L (98-107) Carbon Dioxide Level 32 mmol/L (21-32) Anion Gap 4 (6-14) Blood Urea Nitrogen 18 mg/dL (7-20) Creatinine 0.9 mg/dL (0.6-1.0) Estimated GFR (Cockcroft-Gault) 61.5 Glucose Level 201 mg/dL (70-99) Calcium Level 8.6 mg/dL (8.5-10.1) Laboratory Tests Test 07/03/18 11:26 07/03/18 17:34 07/03/18 21:26 07/04/18 06:20 Glucose (Fingerstick) 224 mg/dL (70-99) 246 mg/dL (70-99) 217 mg/dL (70-99) White Blood Count 7.1 x10^3/uL (4.0-11.0) Red Blood Count 3.90 x10^6/uL (3.50-5.40) Hemoglobin 11.2 g/dL (12.0-15.5) Hematocrit 34.7 % (36.0-47.0) Mean Corpuscular Volume 89 fL (79-100) Mean Corpuscular Hemoglobin 29 pg (25-35) Mean Corpuscular Hemoglobin Concent 32 g/dL (31-37) Red Cell Distribution Width 18.3 % (11.5-14.5) Platelet Count 238 x10^3/uL (140-400) Neutrophils (%) (Auto) 89 % (31-73) Lymphocytes (%) (Auto) 5 % (24-48) Monocytes (%) (Auto) 5 % (0-9) Eosinophils (%) (Auto) 0 % (0-3) Basophils (%) (Auto) 0 % (0-3) Neutrophils # (Auto) 6.3 x10^3uL (1.8-7.7) Lymphocytes # (Auto) 0.4 x10^3/uL (1.0-4.8) Monocytes # (Auto) 0.4 x10^3/uL (0.0-1.1) Eosinophils # (Auto) 0.0 x10^3/uL (0.0-0.7) Basophils # (Auto) 0.0 x10^3/uL (0.0-0.2) Sodium Level 133 mmol/L (136-145) Potassium Level 4.5 mmol/L (3.5-5.1) Chloride Level 97 mmol/L (98-107) Carbon Dioxide Level 32 mmol/L (21-32) Anion Gap 4 (6-14) Blood Urea Nitrogen 18 mg/dL (7-20) Creatinine 0.9 mg/dL (0.6-1.0) Estimated GFR (Cockcroft-Gault) 61.5 Glucose Level 201 mg/dL (70-99) Calcium Level 8.6 mg/dL (8.5-10.1) Medications Active Scripts Medications Dose Route/Sig Max Daily Dose Days Date Category Clindamycin Hcl 300 Mg Capsule 300 Mg PO QID 7 06/24/18 Rx Lasix (Furosemide) 40 Mg Tablet 40 Mg PO BID 14 06/24/18 Rx Aldactone (Spironolactone) 25 Mg Tablet 25 Mg PO DAILY MDD 1 06/24/18 Rx Lisinopril 5 Mg Tablet 2.5 Mg PO DAILY MDD 1 06/24/18 Rx Proair Hfa (Albuterol Sulfate) 8.5 Gm Hfa.aer.ad 2.5 Mg NEB PRN Q4HRS PRN MDD 1 06/24/18 Rx Aspir-Low (Aspirin) 81 Mg Tablet.dr 1 Tab PO DAILY 06/18/18 Reported Triamterene-Hctz 37.5-25 Mg Cp (Triamterene/Hydrochlorothiazid) 1 Each Capsule 1 Cap PO DAILY 06/18/18 Reported Synthroid (Levothyroxine Sodium) 88 Mcg Tablet 1 Tab PO DAILY 06/18/18 Reported Latanoprost 2.5 Ml Drops 1 Drop EACHEYE QHS 06/18/18 Reported Comments cxr reviewed, b lat infilt effusion atelectasis R>L Impression . 1. Acute hypoxic respiratory failure secondary to recent cardiac and vascular intervention and cardiogenic shock. 2. 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 PAD s/p aorto-iliac stent, Left femoral endarterectomy 4. Underlying chronic obstructive pulmonary disease with [id number] tobacco history. 5. Cardiogenic shock resolved with congestive heart failure. 6. History of severe cardiomyopathy and severe diastolic dysfunction and secondary pulmonary hypertension. Plan . 1. 02 titration, IS, has cough w yellow sputum, suspect acute bronchitis, start z pack 2. CXR reviewed, will monitor, am cxr 3. Diuresis per cardiology, monitor k, cr. 4. Bronchodilators. 5. Follow Vascular's recommendation. 6. Follow Cardiology's recommendations. 7. change solumedrol to 40 mg q 12 hrs 9. Monitor hemoglobin. 10. Monitor sodium. 11. pt ot Discussed with RN and RT. JEANINE PINA MD Jul 04, 2018 07:57
[2018-07-04] MEDS ORDERED: DEXTROSE 50% 25 GM / 50ML DISP.SYRIN. IV PRN (08:30)
--- NOTE | 2018-07-04 08:32 | PDOC ---
PROGRESS NOTES Chief Complaint Chief Complaint Triple vessel Disease by [facility] 06/22/18 Severe ischemic CM with EF 30% and severe left main dz Severe PAD with 80% diffuse infrarenal stenosis, 95% stenosis at aortic bifurcation. Acute on chronic CHF AECOPD/pulmonary HTN LE edema more to RLE with small superficial right posterior ulcer. PAD, poor pulses - OP arteriogram Hypothyroidism TSH 5 with T4 at goal on synthroid constipated - bowel regimen Hypokalemia . corrected Morbid obesity with likely GÓMEZ Severe onychomycoses DM2 - A1c 7.9 History of Present Illness History of Present Illness POD 5 S/p PCI of LAD, aortoiliac interventions and infrarenal aorta DBX angioplasty/stent today by [facility] sx and cards. Had to return to OR for pulselessness in RLE 06/29 overnight, she has recovered well, still intubated, sheath with a-line still in place. Still intubated, no vent abnormalities BP better, labs pending. Right IJ CVC placed for pressor support. A-line out. Extubated without event 07/02/18, transferred back to CVC on 07/03/18. Denies CP or SOB. She is c/o about her legs, good hyperemia, however. Plan: Check CBC and BMP today Monitor UOP Glycemic control - change to basal bolus plus regimen now that she is eating, 10u lantus, 3u lispro TID with meals, medium SS insulin Vitals Vitals Vital Signs Date Time Temp Pulse Resp B/P (MAP) Pulse Ox O2 Delivery O2 Flow Rate FiO2 07/04/18 07:47 97.8 113 18 119/66 (83) 88 Nasal Cannula 3.0 97.8 Physical Exam General: Alert, Oriented X3, Cooperative, No acute distress Heart: Regular rate, Normal S1, Normal S2 Lungs: Crackles, Other (decrease bs) Abdomen: Normal bowel sounds, Soft Extremities: Other (edema) Skin: Other Labs LABS Laboratory Tests Test 07/03/18 11:26 07/03/18 17:34 07/03/18 21:26 07/04/18 06:20 Glucose (Fingerstick) 224 mg/dL (70-99) 246 mg/dL (70-99) 217 mg/dL (70-99) White Blood Count 7.1 x10^3/uL (4.0-11.0) Red Blood Count 3.90 x10^6/uL (3.50-5.40) Hemoglobin 11.2 g/dL (12.0-15.5) Hematocrit 34.7 % (36.0-47.0) Mean Corpuscular Volume 89 fL (79-100) Mean Corpuscular Hemoglobin 29 pg (25-35) Mean Corpuscular Hemoglobin Concent 32 g/dL (31-37) Red Cell Distribution Width 18.3 % (11.5-14.5) Platelet Count 238 x10^3/uL (140-400) Neutrophils (%) (Auto) 89 % (31-73) Lymphocytes (%) (Auto) 5 % (24-48) Monocytes (%) (Auto) 5 % (0-9) Eosinophils (%) (Auto) 0 % (0-3) Basophils (%) (Auto) 0 % (0-3) Neutrophils # (Auto) 6.3 x10^3uL (1.8-7.7) Lymphocytes # (Auto) 0.4 x10^3/uL (1.0-4.8) Monocytes # (Auto) 0.4 x10^3/uL (0.0-1.1) Eosinophils # (Auto) 0.0 x10^3/uL (0.0-0.7) Basophils # (Auto) 0.0 x10^3/uL (0.0-0.2) Sodium Level 133 mmol/L (136-145) Potassium Level 4.5 mmol/L (3.5-5.1) Chloride Level 97 mmol/L (98-107) Carbon Dioxide Level 32 mmol/L (21-32) Anion Gap 4 (6-14) Blood Urea Nitrogen 18 mg/dL (7-20) Creatinine 0.9 mg/dL (0.6-1.0) Estimated GFR (Cockcroft-Gault) 61.5 Glucose Level 201 mg/dL (70-99) Calcium Level 8.6 mg/dL (8.5-10.1) Assessment and Plan Assessmemt and Plan Problems Medical Problems: (1) Congestive heart failure Status: Acute Comment Review of Relevant I have reviewed the following items rosangela (where applicable) has been applied. Labs Laboratory Tests Test 07/02/18 08:50 07/02/18 09:35 07/02/18 12:36 07/02/18 18:05 Glucose (Fingerstick) 218 mg/dL (70-99) 197 mg/dL (70-99) 192 mg/dL (70-99) O2 Saturation 95 % (92-99) Arterial Blood pH 7.47 (7.35-7.45) Arterial Blood pCO2 at Patient Temp 44 mmHg (35-46) Arterial Blood pO2 at Patient Temp 77 mmHg (65-108) Arterial Blood HCO3 31 mmol/L (21-28) Arterial Blood Base Excess 7 mmol/L (-3-3) FiO2 40 Test 07/02/18 21:24 07/03/18 05:47 07/03/18 07:52 07/03/18 11:26 Glucose (Fingerstick) 262 mg/dL (70-99) 198 mg/dL (70-99) 224 mg/dL (70-99) White Blood Count 7.3 x10^3/uL (4.0-11.0) Red Blood Count 3.84 x10^6/uL (3.50-5.40) Hemoglobin 11.4 g/dL (12.0-15.5) Hematocrit 34.1 % (36.0-47.0) Mean Corpuscular Volume 89 fL (79-100) Mean Corpuscular Hemoglobin 30 pg (25-35) Mean Corpuscular Hemoglobin Concent 33 g/dL (31-37) Red Cell Distribution Width 17.7 % (11.5-14.5) Platelet Count 220 x10^3/uL (140-400) Neutrophils (%) (Auto) 92 % (31-73) Lymphocytes (%) (Auto) 3 % (24-48) Monocytes (%) (Auto) 4 % (0-9) Eosinophils (%) (Auto) 0 % (0-3) Basophils (%) (Auto) 1 % (0-3) Neutrophils # (Auto) 6.7 x10^3uL (1.8-7.7) Lymphocytes # (Auto) 0.2 x10^3/uL (1.0-4.8) Monocytes # (Auto) 0.3 x10^3/uL (0.0-1.1) Eosinophils # (Auto) 0.0 x10^3/uL (0.0-0.7) Basophils # (Auto) 0.0 x10^3/uL (0.0-0.2) Sodium Level 135 mmol/L (136-145) Potassium Level 4.0 mmol/L (3.5-5.1) Chloride Level 96 mmol/L (98-107) Carbon Dioxide Level 31 mmol/L (21-32) Anion Gap 8 (6-14) Blood Urea Nitrogen 18 mg/dL (7-20) Creatinine 0.9 mg/dL (0.6-1.0) Estimated GFR (Cockcroft-Gault) 61.5 Glucose Level 218 mg/dL (70-99) Calcium Level 8.6 mg/dL (8.5-10.1) Test 07/03/18 17:34 07/03/18 21:26 07/04/18 06:20 Glucose (Fingerstick) 246 mg/dL (70-99) 217 mg/dL (70-99) White Blood Count 7.1 x10^3/uL (4.0-11.0) Red Blood Count 3.90 x10^6/uL (3.50-5.40) Hemoglobin 11.2 g/dL (12.0-15.5) Hematocrit 34.7 % (36.0-47.0) Mean Corpuscular Volume 89 fL (79-100) Mean Corpuscular Hemoglobin 29 pg (25-35) Mean Corpuscular Hemoglobin Concent 32 g/dL (31-37) Red Cell Distribution Width 18.3 % (11.5-14.5) Platelet Count 238 x10^3/uL (140-400) Neutrophils (%) (Auto) 89 % (31-73) Lymphocytes (%) (Auto) 5 % (24-48) Monocytes (%) (Auto) 5 % (0-9) Eosinophils (%) (Auto) 0 % (0-3) Basophils (%) (Auto) 0 % (0-3) Neutrophils # (Auto) 6.3 x10^3uL (1.8-7.7) Lymphocytes # (Auto) 0.4 x10^3/uL (1.0-4.8) Monocytes # (Auto) 0.4 x10^3/uL (0.0-1.1) Eosinophils # (Auto) 0.0 x10^3/uL (0.0-0.7) Basophils # (Auto) 0.0 x10^3/uL (0.0-0.2) Sodium Level 133 mmol/L (136-145) Potassium Level 4.5 mmol/L (3.5-5.1) Chloride Level 97 mmol/L (98-107) Carbon Dioxide Level 32 mmol/L (21-32) Anion Gap 4 (6-14) Blood Urea Nitrogen 18 mg/dL (7-20) Creatinine 0.9 mg/dL (0.6-1.0) Estimated GFR (Cockcroft-Gault) 61.5 Glucose Level 201 mg/dL (70-99) Calcium Level 8.6 mg/dL (8.5-10.1) Laboratory Tests Test 07/03/18 11:26 07/03/18 17:34 07/03/18 21:26 07/04/18 06:20 Glucose (Fingerstick) 224 mg/dL (70-99) 246 mg/dL (70-99) 217 mg/dL (70-99) White Blood Count 7.1 x10^3/uL (4.0-11.0) Red Blood Count 3.90 x10^6/uL (3.50-5.40) Hemoglobin 11.2 g/dL (12.0-15.5) Hematocrit 34.7 % (36.0-47.0) Mean Corpuscular Volume 89 fL (79-100) Mean Corpuscular Hemoglobin 29 pg (25-35) Mean Corpuscular Hemoglobin Concent 32 g/dL (31-37) Red Cell Distribution Width 18.3 % (11.5-14.5) Platelet Count 238 x10^3/uL (140-400) Neutrophils (%) (Auto) 89 % (31-73) Lymphocytes (%) (Auto) 5 % (24-48) Monocytes (%) (Auto) 5 % (0-9) Eosinophils (%) (Auto) 0 % (0-3) Basophils (%) (Auto) 0 % (0-3) Neutrophils # (Auto) 6.3 x10^3uL (1.8-7.7) Lymphocytes # (Auto) 0.4 x10^3/uL (1.0-4.8) Monocytes # (Auto) 0.4 x10^3/uL (0.0-1.1) Eosinophils # (Auto) 0.0 x10^3/uL (0.0-0.7) Basophils # (Auto) 0.0 x10^3/uL (0.0-0.2) Sodium Level 133 mmol/L (136-145) Potassium Level 4.5 mmol/L (3.5-5.1) Chloride Level 97 mmol/L (98-107) Carbon Dioxide Level 32 mmol/L (21-32) Anion Gap 4 (6-14) Blood Urea Nitrogen 18 mg/dL (7-20) Creatinine 0.9 mg/dL (0.6-1.0) Estimated GFR (Cockcroft-Gault) 61.5 Glucose Level 201 mg/dL (70-99) Calcium Level 8.6 mg/dL (8.5-10.1) Medications Current Medications Furosemide (Lasix) 40 mg 1X ONCE IVP Last administered on 06/18/18at 14:59; Start 06/18/18 at 14:00; Stop 06/18/18 at 14:47; Status DC Aspirin (Children'S Aspirin) 324 mg 1X ONCE PO Last administered on 06/18/18at 14:59; Start 06/18/18 at 14:00; Stop 06/18/18 at 14:47; Status DC Potassium Chloride (KCl Oral Soln) 40 meq 1X ONCE PO Last administered on at 14:59; Start 06/18/18 at 15:00; Stop 06/18/18 at 15:01; Status DC Furosemide (Lasix) 40 mg DAILY IVP ; Start 06/19/18 at 09:00; Stop 06/19/18 at 09: 00; Status DC Furosemide (Lasix) 40 mg [id number] IVP ; Start 06/19/18 at 09:00; Stop 06/19/18 at 09: 00; Status DC Lisinopril (Prinivil) 2.5 mg DAILY PO Last administered on 07/03/18at 08:08; Start 06/19/18 at 09:00 Furosemide (Lasix) 40 mg [id number] IV Last administered on 07/01/18at 16:09; Start 06/18/18 at 16:00; Stop 07/01/18 at 17:45; Status DC Spironolactone (Aldactone) 25 mg DAILY PO Last administered on 07/03/18 08:07 ; Start 06/19/18 at 09:00 Heparin Sodium (Porcine) (Heparin Sodium) 5,000 unit Q12HR SQ Last administered on 07/03/18 08:11; Start 06/18/18 at 16:00 Sodium Chloride (Normal Saline Flush) 3 ml QSHIFT PRN IV AFTER MEDS AND BLOOD DRAWS; Start 06/18/18 at 16:00 Ondansetron HCl (Zofran) 4 mg PRN Q4HRS PRN IV NAUSEA/VOMITING; Start 06/18/18 at 16:00 Acetaminophen (Tylenol) 650 mg PRN Q4HRS PRN PO TEMP OVER 100.4F OR MILD PAIN Last administered on 06/28/18 20:56; Start 06/18/18 at 16:00 Sodium Monofluorophosphate (Fleet Adult) 133 ml PRN DAILY PRN RI CONSTIPATION; Start 06/18/18 at 16:00 Diphenhydramine HCl (Benadryl) 25 mg PRN Q4HRS PRN IVP ITCHING Last administered on 06/28/18 20:56; Start 06/18/18 at 16:00 Docusate Sodium (Colace) 100 mg PRN BID PRN PO CONSTIPATION Last administered on 06/27/18 08:41; Start 06/18/18 at 16:00 Albuterol Sulfate (Ventolin Neb Soln) 2.5 mg PRN Q4HRS PRN NEB SHORTNESS OF BREATH; Start 06/18/18 at 16:00 Albuterol/ Ipratropium (Duoneb) 3 ml Q4HRS NEB Last administered on 07/04/18 06:08; Start 06/18/18 at 16:00 Aspirin (Ecotrin) 81 mg DAILY08 PO Last administered on 06/28/18 10:14; Start 06/19/18 at 08:00; Stop 07/01/18 at 10:41; Status DC Levothyroxine Sodium (Synthroid) 88 mcg DAILY08 PO Last administered on 06:14; Start 06/19/18 at 08:00 Latanoprost (Xalatan) 1 drop QHS OU Last administered on 07/03/18 22:03; Start 06/18/18 at 21:00 Potassium Chloride (KCl Oral Soln) 40 meq 1X ONCE PO Last administered on at 13:43; Start 06/19/18 at 13:00; Stop 06/19/18 at 13:01; Status DC Insulin Glargine (Lantus) 5 units QHS SQ Last administered on 07/03/18at 22:12; Start 06/19/18 at 21:00 Insulin Human Lispro (HumaLOG) 0-5 UNITS TIDWMEALS SQ Last administered on 07/03at 17:36; Start 06/19/18 at 12:30 Dextrose (Dextrose 50%-Water Syringe) 12.5 gm PRN Q15MIN PRN IV SEE COMMENTS; Start 06/19/18 at 12:15 Clindamycin Phosphate 50 ml @ 100 mls/hr Q8HRS IV Last administered on at 14:17; Start 06/21/18 at 10:00; Stop 06/24/18 at 15:00; Status DC Lactobacillus Rhamnosus (Culturelle) 1 cap BID PO Last administered on at 22:00; Start 06/21/18 at 21:00 Milrinone Lactate/ Dextrose 100 ml @ 4.022 mls/ hr CONT PRN IV SEE I/O RECORD Last administered on 07/04/18at 00:06; Start 06/22/18 at 13:00 Iodixanol (Visipaque 320) 100 ml STK-MED ONCE .ROUTE ; Start 06/23/18 at 06:35; Stop 06/23/18 at 06:36; Status DC Lidocaine HCl (Lidocaine 1% 20ml Vial) 20 ml STK-MED ONCE .ROUTE ; Start at 06:35; Stop 06/23/18 at 06:36; Status DC Heparin Sodium/ Sodium Chloride 1,500 ml @ As Directed STK-MED ONCE .ROUTE ; Start 06/23/18 at 06:35; Stop 06/23/18 at 06:36; Status DC Iodixanol (Visipaque 320) 100 ml STK-MED ONCE .ROUTE ; Start 06/23/18 at 07:26; Stop 06/23/18 at 07:27; Status DC Midazolam HCl (Versed) 2 mg STK-MED ONCE .ROUTE ; Start 06/23/18 at 07:30; Stop 06/23/18 at 07:31; Status DC Fentanyl Citrate (Fentanyl 2ml Vial) 100 mcg STK-MED ONCE .ROUTE ; Start at 07:30; Stop 06/23/18 at 07:31; Status DC Verapamil HCl (Verapamil) 5 mg STK-MED ONCE .ROUTE ; Start 06/23/18 at 07:30; Stop 06/23/18 at 07:31; Status DC Heparin Sodium (Porcine) (Heparin Sodium) 10,000 unit STK-MED ONCE .ROUTE ; Start 06/23/18 at 07:30; Stop 06/23/18 at 07:31; Status DC Nitroglycerin (Nitroglycerin) 200 mcg STK-MED ONCE .ROUTE ; Start 06/23/18 at 07 :30; Stop 06/23/18 at 07:31; Status DC Nitroglycerin (Nitroglycerin) 200 mcg 1X ONCE IART Last administered on at 08:20; Start 06/23/18 at 08:15; Stop 06/23/18 at 08:18; Status DC Verapamil HCl (Verapamil) 2.5 mg 1X ONCE IART Last administered on 06/23/18at 08:22; Start 06/23/18 at 08:15; Stop 06/23/18 at 08:18; Status DC Heparin Sodium (Porcine) (Heparin Sodium) 2,500 unit 1X ONCE IART Last administered on 06/23/18at 08:23; Start 06/23/18 at 08:15; Stop 06/23/18 at 08:18 ; Status DC Heparin Sodium/ Sodium Chloride (HEPARIN for ARTERIAL LINE FLUSH) 1,000 unit 1X ONCE IART Last administered on 06/23/18at 08:20; Start 06/23/18 at 08:15; Stop 06/23/18 at 08:18; Status DC Heparin Sodium/ Sodium Chloride (HEPARIN for ARTERIAL LINE FLUSH) 1,000 unit 1X ONCE IART Last administered on 06/23/18at 08:20; Start 06/23/18 at 08:15; Stop 06/23/18 at 08:18; Status DC Midazolam HCl (Versed) 1.5 mg 1X ONCE IV Last administered on 06/23/18at 08:21 ; Start 06/23/18 at 08:15; Stop 06/23/18 at 08:18; Status DC Fentanyl Citrate (Fentanyl 2ml Vial) 75 mcg 1X ONCE IV Last administered on 01/01at 08:22; Start 06/23/18 at 08:15; Stop 06/23/18 at 08:18; Status DC Iodixanol (Visipaque 320) 99 ml 1X ONCE IART Last administered on 06/23/18at 08 :20; Start 06/23/18 at 08:15; Stop 06/23/18 at 08:18; Status DC Lidocaine HCl (Lidocaine 1% 20ml Vial) 1 ml 1X ONCE INJ Last administered on at 08:20; Start 06/23/18 at 08:15; Stop 06/23/18 at 08:18; Status DC Info (CONTRAST GIVEN -- Rx MONITORING) 1 each PRN DAILY PRN MC SEE COMMENTS; Start 06/23/18 at 08:30; Stop 06/25/18 at 08:29; Status DC Sodium Chloride 250 ml @ 250 mls/hr 1X ONCE IV Last administered on at 11:07; Start 06/23/18 at 11:15; Stop 06/23/18 at 12:14; Status DC Furosemide (Lasix) 40 mg 1X ONCE IVP Last administered on 06/23/18at 20:46; Start 06/23/18 at 20:15; Stop 06/23/18 at 20:19; Status DC Magnesium Sulfate 50 ml @ 25 mls/hr 1X ONCE IV Last administered on 06/24/18at 14:13; Start 06/24/18 at 12:30; Stop 06/24/18 at 14:29; Status DC Potassium Chloride (Klor-Con) 40 meq 1X ONCE PO Last administered on at 14:14; Start 06/24/18 at 12:30; Stop 06/24/18 at 12:31; Status DC Clindamycin HCl (Cleocin) 300 mg QID PO Last administered on 06/28/18at 20:56; Start 06/24/18 at 21:00; Stop 06/29/18 at 15:41; Status DC Potassium Chloride (Klor-Con) 40 meq DAILY PO Last administered on 07/03/18at 08 :07; Start 06/25/18 at 11:15 Magnesium Sulfate 50 ml @ 25 mls/hr 1X ONCE IV Last administered on 06/25/18at 12:07; Start 06/25/18 at 11:15; Stop 06/25/18 at 13:14; Status DC Potassium Chloride (Klor-Con) 40 meq 1X ONCE PO Last administered on at 08:50; Start 06/26/18 at 07:45; Stop 06/26/18 at 07:50; Status DC Clopidogrel Bisulfate (Plavix) 300 mg 1X ONCE PO Last administered on at 13:10; Start 06/26/18 at 11:00; Stop 06/26/18 at 11:06; Status DC Clopidogrel Bisulfate (Plavix) 75 mg DAILYWBKFT PO Last administered on at 08:07; Start 06/27/18 at 08:00 Methylprednisolone Sodium Succinate (SOLU-Medrol 40MG VIAL) 40 mg Q8HRS IV Last administered on 07/04/18at 06:14; Start 06/27/18 at 09:15; Stop 07/04/18 at 08:00; Status DC Atorvastatin Calcium (Lipitor) 40 mg QHS PO Last administered on 07/03/18at 22: 00; Start 06/28/18 at 21:00 Heparin Sodium (Porcine) 5000 unit/Sodium Chloride 505 ml @ 505 mls/hr 1X ONCE IRR ; Start 06/29/18 at 06:00; Stop 06/29/18 at 06:59; Status DC Cefazolin Sodium/ Dextrose 50 ml @ 100 mls/hr 1X PREOP PRN IV on hold OR; Start 06/29/18 at 06:00; Stop 06/29/18 at 11:19; Status DC Ondansetron HCl (Zofran) 4 mg PRN Q6HRS PRN IV NAUSEA/VOMITING; Start 06/29/18 at 07:00; Stop 06/30/18 at 06:59; Status DC Fentanyl Citrate (Fentanyl 2ml Vial) 25 mcg PRN Q5MIN PRN IV MILD PAIN; Start 06/29/18 at 07:00; Stop 06/30/18 at 06:59; Status DC Fentanyl Citrate (Fentanyl 2ml Vial) 50 mcg PRN Q5MIN PRN IV MODERATE TO SEVERE PAIN; Start 06/29/18 at 07:00; Stop 06/30/18 at 06:59; Status DC Morphine Sulfate (Morphine Sulfate) 1 mg PRN Q10MIN PRN IV SEVERE PAIN; Start 06/29/18 at 07:00; Stop 06/30/18 at 06:59; Status DC Ringer's Solution 1,000 ml @ 30 mls/hr Q24H IV Last administered on 06/29/18at 10:12; Start 06/29/18 at 07:00; Stop 06/29/18 at 18:59; Status DC Lidocaine HCl (Xylocaine-Mpf 1% 2ml Vial) 2 ml PRN 1X PRN ID PRIOR TO IV START ; Start 06/29/18 at 07:00; Stop 06/30/18 at 06:59; Status DC Hydromorphone HCl (Dilaudid) 0.5 mg PRN Q10MIN PRN IV SEV PAIN, Second choice; Start 06/29/18 at 07:00; Stop 06/30/18 at 06:59; Status DC Prochlorperazine Edisylate (Compazine) 5 mg PACU PRN PRN IV NAUSEA, MRX1; Start 06/29/18 at 07:00; Stop 06/30/18 at 06:59; Status DC Bupivacaine HCl/ Epinephrine Bitart (Sensorcain-Mpf Epi 0.5%-1:[id number]) 30 ml STK -MED ONCE .ROUTE ; Start 06/29/18 at 05:59; Stop 06/29/18 at 06:59; Status DC Gelatin (Gelfoam Size 12-7mm) 1 each STK-MED ONCE .ROUTE ; Start 06/29/18 at 05 :59; Stop 06/29/18 at 06:59; Status DC Iohexol (Omnipaque 300 Mg/ml) 100 ml STK-MED ONCE .ROUTE ; Start 06/29/18 at 05: 59; Stop 06/29/18 at 07:00; Status DC Bupivacaine HCl (Sensorcaine Mpf 0.25%) 30 ml STK-MED ONCE .ROUTE ; Start at 05:59; Stop 06/29/18 at 07:00; Status DC Papaverine HCl 60 mg STK-MED ONCE .ROUTE ; Start 06/29/18 at 06:00; Stop at 07:01; Status DC Thrombin 20,000 unit STK-MED ONCE TP ; Start 06/29/18 at 06:00; Stop 06/29/18 at 07:01; Status DC Sodium Chloride (SODIUM CHLORIDE 20ml) 20 ml STK-MED ONCE IJ ; Start 06/29/18 at 09:46; Stop 06/29/18 at 09:47; Status DC Famotidine (Pepcid Vial) 20 mg STK-MED ONCE .ROUTE ; Start 06/29/18 at 09:46; Stop 06/29/18 at 09:47; Status DC Ondansetron HCl (Zofran) 4 mg STK-MED ONCE .ROUTE ; Start 06/29/18 at 09:46; Stop 06/29/18 at 09:47; Status DC Dexamethasone Sodium Phosphate (Decadron) 20 mg STK-MED ONCE .ROUTE ; Start at 09:46; Stop 06/29/18 at 09:47; Status DC Lidocaine HCl (Lidocaine Pf 2% Vial) 5 ml STK-MED ONCE .ROUTE ; Start 06/29/18 at 09:46; Stop 06/29/18 at 09:47; Status DC Etomidate (Amidate) 20 mg STK-MED ONCE IV ; Start 06/29/18 at 09:46; Stop at 09:47; Status DC Phenylephrine HCl (PHENYLEPHRINE in 0.9% NACL PF) 1 mg STK-MED ONCE IV ; Start 06/29/18 at 09:46; Stop 06/29/18 at 09:47; Status DC Fentanyl Citrate (Fentanyl 2ml Vial) 100 mcg STK-MED ONCE .ROUTE ; Start at 09:47; Stop 06/29/18 at 09:48; Status DC Hydromorphone HCl (Dilaudid) 2 mg STK-MED ONCE .ROUTE ; Start 06/29/18 at 09:47 ; Stop 06/29/18 at 09:48; Status DC Glycopyrrolate (Robinul) 1 mg STK-MED ONCE .ROUTE ; Start 06/29/18 at 09:47; Stop 06/29/18 at 09:48; Status DC Rocuronium Callicoon (Zemuron) 100 mg STK-MED ONCE .ROUTE ; Start 06/29/18 at 09: 47; Stop 06/29/18 at 09:48; Status DC Neostigmine Methylsulfate (Neostigmine Methylsulfate) 5 mg STK-MED ONCE .ROUTE ; Start 06/29/18 at 09:47; Stop 06/29/18 at 09:48; Status DC Albumin Human 0 ml @ As Directed STK-MED ONCE IV ; Start 06/29/18 at 09:48; Stop 06/29/18 at 09:49; Status DC Iodixanol (Visipaque 320) 100 ml STK-MED ONCE .ROUTE ; Start 06/29/18 at 10:11; Stop 06/29/18 at 10:12; Status DC Lidocaine HCl (Lidocaine 1% 20ml Vial) 20 ml STK-MED ONCE .ROUTE ; Start at 10:11; Stop 06/29/18 at 10:12; Status DC Iodixanol (Visipaque 320) 50 ml STK-MED ONCE .ROUTE ; Start 06/29/18 at 10:11; Stop 06/29/18 at 10:12; Status DC Heparin Sodium/ Sodium Chloride 1,000 ml @ As Directed STK-MED ONCE .ROUTE ; Start 06/29/18 at 10:11; Stop 06/29/18 at 10:12; Status DC Bupivacaine HCl (Sensorcaine Mpf 0.5%) 30 ml STK-MED ONCE .ROUTE Last administered on 06/29/18at 12:42; Start 06/29/18 at 09:59; Stop 06/29/18 at 10:59 ; Status DC Bacitracin (Bacitracin) 50,000 unit STK-MED ONCE IRR ; Start 06/29/18 at 10:00; Stop 06/29/18 at 11:00; Status DC Vancomycin HCl 250 ml @ 250 mls/hr 1X ONCE IV Last administered on 06/29/18at 11:15; Start 06/29/18 at 11:15; Stop 06/29/18 at 12:14; Status DC Heparin Sodium (Porcine) (Heparin Sodium) 10,000 unit STK-MED ONCE .ROUTE ; Start 06/29/18 at 11:49; Stop 06/29/18 at 11:50; Status DC Cellulose (Surgicel Fibrillar 1x2) 1 each STK-MED ONCE .ROUTE ; Start 06/29/18 at 11:50; Stop 06/29/18 at 11:51; Status DC Phenylephrine HCl (Justin-Synephrine Inj) 10 mg STK-MED ONCE .ROUTE ; Start at 11:57; Stop 06/29/18 at 11:58; Status DC Sevoflurane (Ultane) 90 ml STK-MED ONCE IH ; Start 06/29/18 at 12:07; Stop 06/29 at 12:08; Status DC Heparin Sodium/ Sodium Chloride 500 ml @ As Directed STK-MED ONCE .ROUTE ; Start 06/29/18 at 12:35; Stop 06/29/18 at 12:36; Status DC Iodixanol (Visipaque 320) 100 ml STK-MED ONCE .ROUTE ; Start 06/29/18 at 12:52; Stop 06/29/18 at 12:53; Status DC Iodixanol (Visipaque 320) 100 ml STK-MED ONCE .ROUTE ; Start 06/29/18 at 13:17; Stop 06/29/18 at 13:18; Status DC Lidocaine HCl (Lidocaine 1% 20ml Vial) 20 ml STK-MED ONCE .ROUTE ; Start at 13:17; Stop 06/29/18 at 13:18; Status DC Heparin Sodium/ Sodium Chloride 1,000 ml @ As Directed STK-MED ONCE .ROUTE ; Start 06/29/18 at 13:18; Stop 06/29/18 at 13:19; Status DC Heparin Sodium (Porcine) (Heparin Sodium) 10,000 unit STK-MED ONCE .ROUTE ; Start 06/29/18 at 13:19; Stop 06/29/18 at 13:20; Status DC Heparin Sodium/ Sodium Chloride (HEPARIN for ARTERIAL LINE FLUSH) 1,000 unit 1X ONCE IART Last administered on 06/29/18at 14:15; Start 06/29/18 at 14:15; Stop 06/29/18 at 14:16; Status DC Heparin Sodium/ Sodium Chloride (HEPARIN for ARTERIAL LINE FLUSH) 1,000 unit 1X ONCE IART Last administered on 06/29/18at 14:15; Start 06/29/18 at 14:15; Stop 06/29/18 at 14:16; Status DC Heparin Sodium (Porcine) (Heparin Sodium) 4,000 unit 1X ONCE IV Last administered on 06/29/18at 14:15; Start 06/29/18 at 14:15; Stop 06/29/18 at 14:16 ; Status DC Iodixanol (Visipaque 320) 100 ml 1X ONCE IART Last administered on 06/29/18at 14:30; Start 06/29/18 at 14:30; Stop 06/29/18 at 14:31; Status DC Heparin Sodium/ Sodium Chloride 500 ml @ As Directed STK-MED ONCE .ROUTE ; Start 06/29/18 at 14:35; Stop 06/29/18 at 14:36; Status DC Nitroglycerin (Nitroglycerin) 200 mcg 1X ONCE IART Last administered on at 15:30; Start 06/29/18 at 15:30; Stop 06/29/18 at 15:31; Status DC Iodixanol (Visipaque 320) 100 ml STK-MED ONCE .ROUTE ; Start 06/29/18 at 15:51; Stop 06/29/18 at 15:52; Status DC Iodixanol (Visipaque 320) 100 ml STK-MED ONCE .ROUTE ; Start 06/29/18 at 16:52; Stop 06/29/18 at 16:53; Status DC Aspirin (Aspirin) 300 mg 1X ONCE RI Last administered on 06/29/18at 18:18; Start 06/29/18 at 17:30; Stop 06/29/18 at 17:31; Status DC Clopidogrel Bisulfate (Plavix) 300 mg 1X ONCE PO Last administered on at 18:18; Start 06/29/18 at 17:30; Stop 06/29/18 at 17:31; Status DC Fentanyl Citrate 30 ml @ 0 mls/hr CONT PRN IV SEE PROTOCOL Last administered on 07/01/18at 04:49; Start 06/29/18 at 17:30; Stop 07/02/18 at 15:47; Status DC Fentanyl Citrate (Fentanyl 2ml Vial) 25 mcg PRN Q1HR PRN IV SEE COMMENTS Last administered on 07/01/18at 14:48; Start 06/29/18 at 17:30 Fentanyl Citrate (Fentanyl 2ml Vial) 50 mcg PRN Q1HR PRN IV SEE COMMENTS; Start 06/29/18 at 17:30 Chlorhexidine Gluconate (Peridex) 15 ml BID MM Last administered on 07/02/18at 21:47; Start 06/29/18 at 21:00; Stop 07/03/18 at 10:29; Status DC Morphine Sulfate (Morphine Sulfate) 2 mg PRN Q1HR PRN IV SEE COMMENTS.; Start 06/29/18 at 17:30 Morphine Sulfate (Morphine Sulfate) 4 mg PRN Q1HR PRN IV SEE COMMENTS.; Start 06/29/18 at 17:30 Midazolam HCl 100 ml @ 0 mls/hr CONT PRN IV SEE PROTOCOL Last administered on at 12:04; Start 06/29/18 at 17:30; Stop 07/04/18 at 08:07; Status DC Vecuronium [place] (Norcuron Bolus) 6 mg PRN Q2HRS PRN IV ANXIETY / AGITATION; Start 06/29/18 at 17:30; Stop 07/02/18 at 15:47; Status DC Heparin Sodium (Porcine) 5000 unit/Sodium Chloride 505 ml @ 505 mls/hr 1X ONCE IRR Last administered on 06/29/18at 20:34; Start 06/29/18 at 19:30; Stop at 20:30; Status DC Iohexol (Omnipaque 300 Mg/ml) 100 ml STK-MED ONCE .ROUTE ; Start 06/29/18 at 18: 16; Stop 06/29/18 at 19:17; Status DC Cellulose (Surgicel Fibrillar 1x2) 1 each STK-MED ONCE .ROUTE ; Start 06/29/18 at 19:17; Stop 06/29/18 at 19:18; Status DC Rocuronium [place] (Zemuron) 50 mg STK-MED ONCE .ROUTE ; Start 06/29/18 at 19:42 ; Stop 06/29/18 at 19:43; Status DC Vancomycin HCl 1 gm/Sodium Chloride 250 ml @ 250 mls/hr 1X ONCE IV Last administered on 06/29/18at 20:34; Start 06/29/18 at 20:45; Stop 06/29/18 at 21:44 ; Status DC Vancomycin HCl 250 ml @ 250 mls/hr 1X ONCE IV ; Start 06/29/18 at 20:45; Stop 06/29/18 at 21:44; Status UNV Hydrocortisone Sodium Succinate (Solu-CORTEF) 100 mg STK-MED ONCE .ROUTE ; Start 06/29/18 at 20:50; Stop 06/29/18 at 20:51; Status DC Heparin Sodium (Porcine) (Heparin Sodium) 10,000 unit STK-MED ONCE .ROUTE ; Start 06/29/18 at 21:01; Stop 06/29/18 at 21:02; Status DC Phenylephrine HCl (PHENYLEPHRINE in 0.9% NACL PF) 1 mg STK-MED ONCE IV ; Start 06/29/18 at 21:35; Stop 06/29/18 at 21:36; Status DC Sevoflurane (Ultane) 90 ml STK-MED ONCE IH ; Start 06/29/18 at 21:36; Stop 06/29 at 21:37; Status DC Protamine Sulfate (Protamine) 50 mg STK-MED ONCE IV ; Start 06/29/18 at 21:45; Stop 06/29/18 at 21:46; Status DC Cellulose (Surgicel Fibrillar 1x2) 1 each STK-MED ONCE TP Last administered on 06/29/18at 21:52; Start 06/29/18 at 21:52; Stop 06/29/18 at 21:58; Status DC Sodium Chloride 500 ml @ 500 mls/hr 1X ONCE IV Last administered on at 23:47; Start 06/29/18 at 23:00; Stop 06/29/18 at 23:59; Status DC Sodium Chloride 500 ml @ 500 mls/hr 1X ONCE IV Last administered on at 00:27; Start 06/30/18 at 00:00; Stop 06/30/18 at 00:59; Status DC Norepinephrine Bitartrate 250 ml @ 1.875 mls/ hr CONT PRN IV SEE I/O RECORD Last administered on 06/30/18at 00:26; Start 06/29/18 at 23:45; Stop 07/04/18 at 08:07; Status DC Rocuronium [place] (Zemuron) 50 mg STK-MED ONCE .ROUTE ; Start 06/29/18 at 12:00 ; Stop 06/30/18 at 08:09; Status DC Aspirin (Aspirin) 300 mg DAILY RI Last administered on 07/02/18at 08:47; Start 06/30/18 at 10:00; Stop 07/02/18 at 15:43; Status DC Potassium Chloride (KCl Oral Soln) 40 meq DAILY PEG Last administered on at 08:43; Start 06/30/18 at 10:00; Stop 07/02/18 at 15:43; Status DC Cefazolin Sodium/ Dextrose (Ancef 2gm Premix) 2 gm STK-MED ONCE IV ; Start 06/29 at 11:00; Stop 06/30/18 at 12:24; Status DC Hydralazine HCl (Apresoline Inj) 10 mg PRN Q6HRS PRN IVP ELEVATED BP, SEE COMMENTS; Start 06/30/18 at 14:00; Status UNV Albumin Human 100 ml @ 100 mls/hr 1X ONCE IV Last administered on 06/30/18at 19:39; Start 06/30/18 at 19:15; Stop 06/30/18 at 20:14; Status DC Phenylephrine HCl (PHENYLEPHRINE in 0.9% NACL PF) 0.1 mg 1X ONCE IV Last administered on 06/30/18at 19:15; Start 06/30/18 at 19:15; Stop 06/30/18 at 19:16 ; Status DC Aspirin (Ecotrin) 81 mg PRN DAILY PRN PO WHEN PO TOLERATED; Start 07/01/18 at 10:45; Stop 07/02/18 at 15:43; Status DC Fentanyl Citrate (Fentanyl 2ml Vial) 25 mcg PRN Q1HR PRN IV SEE COMMENTS; Start 07/01/18 at 13:30; Stop 07/02/18 at 09:04; Status DC Fentanyl Citrate (Fentanyl 2ml Vial) 50 mcg PRN Q1HR PRN IV SEE COMMENTS; Start 07/01/18 at 13:30; Stop 07/02/18 at 09:04; Status DC Chlorhexidine Gluconate (Peridex) 15 ml BID MM ; Start 07/01/18 at 21:00; Status Cancel Dexmedetomidine HCl 200 mcg/ Sodium Chloride 50 ml @ 0 mls/hr CONT PRN IV PER PROTOCOL Last administered on 07/02/18at 01:52; Start 07/01/18 at 13:30; Stop at 08:07; Status DC Sodium Chloride 500 ml @ 500 mls/hr 1X PRN PRN IV SEE COMMENTS; Start at 13:30 Atropine Sulfate (ATROPINE 0.5mg SYRINGE) 0.5 mg PRN Q5MIN PRN IV SEE COMMENTS ; Start 07/01/18 at 13:30 Furosemide (Lasix) 40 mg DAILY IV Last administered on 07/03/18at 08:11; Start 07/02/18 at 09:00 Aspirin (Ecotrin) 81 mg DAILY08 PO Last administered on 07/03/18at 08:07; Start 07/03/18 at 08:00 Furosemide (Lasix) 40 mg 1X ONCE IVP Last administered on 07/02/18at 21:30; Start 07/02/18 at 21:00; Stop 07/02/18 at 21:01; Status DC Methylprednisolone Sodium Succinate (SOLU-Medrol 40MG VIAL) 40 mg Q12HR IV ; Start 07/04/18 at 21:00 Azithromycin (Zithromax) 500 mg 1X ONCE PO ; Start 07/04/18 at 09:00; Stop at 09:01 Azithromycin (Zithromax) 250 mg DAILY PO ; Start 07/05/18 at 09:00 Active Scripts Active Clindamycin Hcl 300 Mg Capsule 300 Mg PO QID 7 Days Lasix (Furosemide) 40 Mg Tablet 40 Mg PO BID 14 Days Aldactone (Spironolactone) 25 Mg Tablet 25 Mg PO DAILY MDD 1 Lisinopril 5 Mg Tablet 2.5 Mg PO DAILY MDD 1 Proair Hfa (Albuterol Sulfate) 8.5 Gm Hfa.aer.ad 2.5 Mg NEB PRN Q4HRS PRN MDD 1 Reported Aspir-Low (Aspirin) 81 Mg Tablet.dr 1 Tab PO DAILY Triamterene-Hctz 37.5-25 Mg Cp (Triamterene/Hydrochlorothiazid) 1 Each Capsule 1 Cap PO DAILY Synthroid (Levothyroxine Sodium) 88 Mcg Tablet 1 Tab PO DAILY Latanoprost 2.5 Ml Drops 1 Drop EACHEYE QHS Vitals/I & O Vital Sign - Last 24 Hours 07/03/18 07/03/18 07/03/18 07/03/18 09:32 10:40 11:00 15:00 Temp 97.9 97.9 Pulse 116 112 104 Resp 18 20 22 B/P (MAP) 117/62 (80) 87/48 (61) 113/63 (80) Pulse Ox 89 91 89 94 O2 Delivery Nasal Cannula Nasal Cannula Nasal Cannula Nasal Cannula O2 Flow Rate 3.0 3.0 3.0 3.0 07/03/18 07/03/18 07/03/18 4/20/19 15:02 16:08 17:20 19:21 Temp 97.6 97.6 Pulse 116 110 Resp 18 30 B/P (MAP) 105/60 (75) 141/72 (95) Pulse Ox 91 89 91 O2 Delivery Nasal Cannula Nasal Cannula Nasal Cannula Nasal Cannula O2 Flow Rate 3.0 3.0 3.0 3.0 07/03/18 07/03/18 07/03/18 07/03/18 19:57 20:00 23:06 23:53 Temp 97.8 97.6 97.8 97.6 Pulse 105 101 Resp 20 19 B/P (MAP) 118/70 (86) 111/70 (84) Pulse Ox 93 91 92 93 O2 Delivery Nasal Cannula Nasal Cannula Nasal Cannula Nasal Cannula O2 Flow Rate 4.0 3.0 4.0 3.0 07/04/18 07/04/18 07/04/18 07/04/18 03:52 04:26 06:10 07:47 Temp 97.6 97.8 97.6 97.8 Pulse 99 113 Resp 18 18 B/P (MAP) 124/77 (93) 119/66 (83) Pulse Ox 93 93 93 88 O2 Delivery Nasal Cannula Nasal Cannula Nasal Cannula Nasal Cannula O2 Flow Rate 4.0 3.0 3.0 3.0 Intake and Output 07/03/18 07/03/18 07/04/18 15:00 23:00 07:00 Intake Total 600 ml 340 ml 650 ml Output Total 600 ml 750 ml 310 ml Balance 0 ml -410 ml 340 ml JAN FLORES MD Jul 04, 2018 08:32
[2018-07-04] MEDS ORDERED: AZITHROMYCIN 250 MG TABLET. PO ONE (09:00)
[2018-07-04] MEDS: HEPARIN for SUB-Q USE 5,000 UNIT/ML VIAL. SQ SCH (09:00)
[2018-07-04] MEDS: LACTOBACILLUS RHAMNOSUS GG 1 CAPSULE. PO SCH ×2 (09:19→20:51)
[2018-07-04] MEDS: POTASSIUM CHLORIDE 20 MEQ TABLET.ER. PO SCH (09:19)
[2018-07-04] MEDS: CLOPIDOGREL BISULFATE 75 MG TABLET PO SCH (09:19)
[2018-07-04] MEDS: SPIRONOLACTONE 25 MG TABLET PO SCH (09:20)
[2018-07-04] MEDS: ASPIRIN ENTERIC COATED 81 MG TABLET.DR. PO SCH (09:20)
[2018-07-04] MEDS: LISINOPRIL 5 MG TABLET. PO SCH (09:21)
[2018-07-04] MEDS: FUROSEMIDE 40 MG/4 ML VIAL. IV SCH (09:22)
[2018-07-04] MEDS ORDERED: HEPARIN 25,000UTS/500ML PREMIX 500 ML IV PRN (09:45)
--- NOTE | 2018-07-04 09:47 | PDOC ---
Provider Note Provider Note Vascular follow-up note Patient is status post bilateral common iliac artery angioplasty and stent as well as aortic stent. She subsequently underwent femoral artery reconstruction on the left. She has transferred from the intensive care unit to the telemetry unit. She is doing well. Her only complaint is bleeding from needle puncture sites. Patient is on Plavix and aspirin and subcutaneous heparin (5000 units subcutaneous twice a day). She's not complaining of any leg pain. The drainage from her Horacio-Khalil drain in the left groin is low. Patient's legs are warm packs sensation and normal motor function Her Horacio-Khalil drain is removed from the left groin. Sterile dressing applied. Overall the patient is doing quite well. Her only current problem is bleeding from needle puncture sites. I think he probably can work her heparin subcutaneous 20 continuous infusion of 500 units an hour and reduce the bleeding from needle puncture sites. She can be converted to oral anticoagulation at any time. We'll defer this to her ELSIE Rea MD Jul 04, 2018 09:47
--- NOTE | 2018-07-04 11:09 | PDOC ---
CARDIOLOGY PROGRESS NOTE SUBJECTIVE: Patient denies any chest pain. She had some pain under her breast that resolved without any intervention Her lower extremities are less painful for her. Denies any palpitations OBJECTIVE: Vital SIgns: Vital Signs Date Time Temp Pulse Resp B/P (MAP) Pulse Ox O2 Delivery O2 Flow Rate FiO2 07/04/18 10:53 Nasal Cannula 3.0 07/04/18 09:21 119 128/75 07/04/18 07:47 97.8 18 88 97.8 I & O Intake and Output 07/04/18 06:59 Intake Total 1590 ml Output Total 1660 ml Balance -70 ml Intake Oral 1590 ml Output Urine Total 1650 ml Drainage Total 10 ml Objective: In general she is alert and oriented and in good spirits Bilateral lower ext are warm to touch with normal flexion and extension of the ankle She has 1+ edema on the left and trace edema on the right Left groin site is clean, dry and intact. Lungs with decreased breath sounds at the bases She is tachycardic on examination without any obvious murmurs or rubs or gallops CURRENT MEDICATIONS: Aspirin 81 mg daily Plavix 75 mg daily Atorvastatin 40 mg daily Lisinopril 2.5 mg daily Spironolactone 25 mg daily Milrinone 0.125 mg/kg/min Lasix 40 mg IV push daily DIAGNOSTIC TESTING: Labs stable. Hgb 11.2, Cr 0.9, Na 133 ASSESSMENT: 1. 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 PAD s/p aorto-iliac stenting 3. Dyslipidemia 4. Acute on chronic decompensated systolic/diastolic HF - improving. PLAN: 1. Decrease Milrinone 2. Start Metoprolol 25mg p.o q 6 hours. 3. Continue other meds as noted above. 4. Stop hep DVT prophylaxis due to bleeding at injection sites, change to lovenox in a.m. once a day. 5. Discussed with Dr. Perrin 6. May need right sided thoracentesis, await a.m. chest XR. 7. Keep NPO at midnight. 8. Needs rehab placement. Supportive care. She has made a remarkable improvement overall. ALYSSIA PASCUAL MD Jul 04, 2018 11:09
[2018-07-04] MEDS: INSULIN LISPRO 300 UNITS/3 ML INSULN.PEN. SQ SCH ×4 (12:26→17:45)
--- NOTE | 2018-07-04 14:40 | NUR ---
DECREASE RATE OF MILRINONE GTT IN HALF AND CONTINUE CURRENT MEDICATIONS. DR. MOHR DISCONTINUE NAVIN DRAIN LEFT GROIN TODAY. PT TO WORK WITH PT THIS AFTERNOON. WILL CONTINUE TO ASSESS. Addendum: 07/04/18 at 1453 by Malik Pelletier RN PT STATED TODAY THAT SHE NOW WISHES TO BE A FULL CODE. INFORM DR. ONEILL AND CODE STATUS CHANGED.
--- NOTE | 2018-07-04 15:43 | NUR ---
BILATERAL GROIN SITE CDI AND INTACT. REPORT GIVEN TO MARINA HASTINGS.
[2018-07-04] MEDS: LATANOPROST 0.005% OPHTH SOLUTION 2.5ML BOTTLE. OU SCH (20:51)
[2018-07-04] MEDS: ATORVASTATIN CALCIUM 40 MG TABLET. PO SCH (20:51)
[2018-07-04] MEDS: INSULIN GLARGINE 300 UNITS/3 ML INSULN.PEN. SQ SCH (21:05)
--- NOTE | 2018-07-05 02:12 | NUR ---
Change in patient condition around 0130 pt stated that she was hot and that she couldnt breath. Adjusted patient NC and noted wheeze and coarse lung sounds on the left and diminished lung sounds on the right. O2 sat 80%, called RT to get breathing Tx and assess O2 needs. bed in low locked position, call light with in reach. Will continue to monitor pt.
[2018-07-05 02:57] VITALS: BP 126/75
[2018-07-05] MEDS: IPRATRPIUM/ALBUTEROL 0.5/2.5MG 3 ML NEBU. NEB SCH ×7 (03:53→22:58)
[2018-07-05] MEDS: INSULIN LISPRO 300 UNITS/3 ML INSULN.PEN. SQ SCH ×6 (07:30→17:00)
[2018-07-05 07:35] VITALS: BP 127/79
[2018-07-05] MEDS: methylPREDNISolone SOD SUCC PF 40 MG/ML VIAL. IV SCH ×2 (08:44→21:11)
[2018-07-05] MEDS: FUROSEMIDE 40 MG/4 ML VIAL. IV SCH (08:44)
[2018-07-05] MEDS: ENOXAPARIN 40 MG/0.4 ML SYRINGE. SQ SCH (09:00)
[2018-07-05] MEDS ORDERED: HYDROcodone/APAP 5/325MG 1 TAB TABLET PO PRN (09:15)
--- NOTE | 2018-07-05 10:48 | PDOC ---
PROGRESS NOTES Chief Complaint Chief Complaint Triple vessel Disease by [facility] 06/22/18 Severe ischemic CM with EF 30% and severe left main dz Severe PAD with 80% diffuse infrarenal stenosis, 95% stenosis at aortic bifurcation. Acute on chronic CHF AECOPD/pulmonary HTN LE edema more to RLE with small superficial right posterior ulcer. PAD, poor pulses - OP arteriogram Hypothyroidism TSH 5 with T4 at goal on synthroid constipated - bowel regimen Hypokalemia . corrected Morbid obesity with likely GÓMEZ Severe onychomycoses DM2 - A1c 7.9 rt Sided pleural effusion History of Present Illness History of Present Illness POD 5 S/p PCI of LAD, aortoiliac interventions and infrarenal aorta DBX angioplasty/stent [facility] sx and cards. Had to return to OR for pulselessness in RLE 06/29 overnight, she has recovered well, extubated Now agreeable to SNU Still on milrinone drip Some thoughts about thoracentesis Chest x-ray done, repeat pending - rt pleural eff No increase in SOA First time she got out of bed - she is up to the chair right now legs still tight but swelling and redness way much better than last week Plan: HAs indwelling Avila catheter now - maintain Milrinone drip per cards Social work SNU screen Chest x-ray follow-up today-pulmonary on board in case thoracentesis needed? Vitals Vitals Vital Signs Date Time Temp Pulse Resp B/P (MAP) Pulse Ox O2 Delivery O2 Flow Rate FiO2 07/05/18 08:02 Nasal Cannula 3.0 07/05/18 07:54 95 07/05/18 07:35 98.0 114 18 127/79 (95) 98.0 Physical Exam General: Alert, Oriented X3, Cooperative, No acute distress Heart: Regular rate, Normal S1, Normal S2 Lungs: Crackles, Other (decrease bs) Abdomen: Normal bowel sounds, Soft Extremities: No clubbing, No cyanosis, Other (edema) Skin: No rashes, Other Labs LABS Laboratory Tests Test 07/04/18 12:24 07/04/18 16:54 07/04/18 20:50 07/05/18 06:30 Glucose (Fingerstick) 254 mg/dL (70-99) 211 mg/dL (70-99) 137 mg/dL (70-99) 197 mg/dL (70-99) Test 07/05/18 08:12 Glucose (Fingerstick) 147 mg/dL (70-99) Review of Systems Review of Systems NO Chest pain, no abdominal pain, no increase in SOA Chronic leg edema Assessment and Plan Assessmemt and Plan Problems Medical Problems: (1) Congestive heart failure Status: Acute Comment Review of Relevant I have reviewed the following items rosangela (where applicable) has been applied. Labs Laboratory Tests Test 07/03/18 11:26 07/03/18 17:34 07/03/18 21:26 07/04/18 06:20 Glucose (Fingerstick) 224 mg/dL (70-99) 246 mg/dL (70-99) 217 mg/dL (70-99) White Blood Count 7.1 x10^3/uL (4.0-11.0) Red Blood Count 3.90 x10^6/uL (3.50-5.40) Hemoglobin 11.2 g/dL (12.0-15.5) Hematocrit 34.7 % (36.0-47.0) Mean Corpuscular Volume 89 fL (79-100) Mean Corpuscular Hemoglobin 29 pg (25-35) Mean Corpuscular Hemoglobin Concent 32 g/dL (31-37) Red Cell Distribution Width 18.3 % (11.5-14.5) Platelet Count 238 x10^3/uL (140-400) Neutrophils (%) (Auto) 89 % (31-73) Lymphocytes (%) (Auto) 5 % (24-48) Monocytes (%) (Auto) 5 % (0-9) Eosinophils (%) (Auto) 0 % (0-3) Basophils (%) (Auto) 0 % (0-3) Neutrophils # (Auto) 6.3 x10^3uL (1.8-7.7) Lymphocytes # (Auto) 0.4 x10^3/uL (1.0-4.8) Monocytes # (Auto) 0.4 x10^3/uL (0.0-1.1) Eosinophils # (Auto) 0.0 x10^3/uL (0.0-0.7) Basophils # (Auto) 0.0 x10^3/uL (0.0-0.2) Sodium Level 133 mmol/L (136-145) Potassium Level 4.5 mmol/L (3.5-5.1) Chloride Level 97 mmol/L (98-107) Carbon Dioxide Level 32 mmol/L (21-32) Anion Gap 4 (6-14) Blood Urea Nitrogen 18 mg/dL (7-20) Creatinine 0.9 mg/dL (0.6-1.0) Estimated GFR (Cockcroft-Gault) 61.5 Glucose Level 201 mg/dL (70-99) Calcium Level 8.6 mg/dL (8.5-10.1) Test 07/04/18 08:27 07/04/18 12:24 07/04/18 16:54 07/04/18 20:50 Glucose (Fingerstick) 198 mg/dL (70-99) 254 mg/dL (70-99) 211 mg/dL (70-99) 137 mg/dL (70-99) Test 07/05/18 06:30 07/05/18 08:12 Glucose (Fingerstick) 197 mg/dL (70-99) 147 mg/dL (70-99) Laboratory Tests Test 07/04/18 12:24 07/04/18 16:54 07/04/18 20:50 07/05/18 06:30 Glucose (Fingerstick) 254 mg/dL (70-99) 211 mg/dL (70-99) 137 mg/dL (70-99) 197 mg/dL (70-99) Test 07/05/18 08:12 Glucose (Fingerstick) 147 mg/dL (70-99) Medications Current Medications Furosemide (Lasix) 40 mg 1X ONCE IVP Last administered on 06/18/18at 14:59; Start 06/18/18 at 14:00; Stop 06/18/18 at 14:47; Status DC Aspirin (Children'S Aspirin) 324 mg 1X ONCE PO Last administered on 06/18/18at 14:59; Start 06/18/18 at 14:00; Stop 06/18/18 at 14:47; Status DC Potassium Chloride (KCl Oral Soln) 40 meq 1X ONCE PO Last administered on 06/18/18at 14:59; Start 06/18/18 at 15:00; Stop 06/18/18 at 15:01; Status DC Furosemide (Lasix) 40 mg DAILY IVP ; Start 06/19/18 at 09:00; Stop 06/19/18 at 09:00; Status DC Furosemide (Lasix) 40 mg [id number] IVP ; Start 06/19/18 at 09:00; Stop 06/19/18 at 09:00; Status DC Lisinopril (Prinivil) 2.5 mg DAILY PO Last administered on 07/04/18 09:21; Start 06/19/18 at 09:00 Furosemide (Lasix) 40 mg [id number] IV Last administered on 07/01/18at 16:09; Start 06/18/18 at 16:00; Stop 07/01/18 at 17:45; Status DC Spironolactone (Aldactone) 25 mg DAILY PO Last administered on 07/04/18 09:20; Start 06/19/18 at 09:00 Heparin Sodium (Porcine) (Heparin Sodium) 5,000 unit Q12HR SQ Last administered on 07/03/18 08:11; Start 06/18/18 at 16:00; Stop 07/04/18 at 09:35; Status DC Sodium Chloride (Normal Saline Flush) 3 ml QSHIFT PRN IV AFTER MEDS AND BLOOD DRAWS; Start 06/18/18 at 16:00 Ondansetron HCl (Zofran) 4 mg PRN Q4HRS PRN IV NAUSEA/VOMITING; Start 06/18/18 at 16:00 Acetaminophen (Tylenol) 650 mg PRN Q4HRS PRN PO TEMP OVER 100.4F OR MILD PAIN Last administered on 06/28/18 20:56; Start 06/18/18 at 16:00 Sodium Monofluorophosphate (Fleet Adult) 133 ml PRN DAILY PRN [place] CONSTIPATION; Start 06/18/18 at 16:00 Diphenhydramine HCl (Benadryl) 25 mg PRN Q4HRS PRN IVP ITCHING Last administered on 06/28/18 20:56; Start 06/18/18 at 16:00 Docusate Sodium (Colace) 100 mg PRN BID PRN PO CONSTIPATION Last administered on 06/27/18at 08:41; Start 06/18/18 at 16:00 Albuterol Sulfate (Ventolin Neb Soln) 2.5 mg PRN Q4HRS PRN NEB SHORTNESS OF BREATH; Start 06/18/18 at 16:00 Albuterol/ Ipratropium (Duoneb) 3 ml Q4HRS NEB Last administered on 07/05/18 07:51; Start 06/18/18 at 16:00 Aspirin (Ecotrin) 81 mg DAILY08 PO Last administered on 06/28/18 10:14; Start 06/19/18 at 08:00; Stop 07/01/18 at 10:41; Status DC Levothyroxine Sodium (Synthroid) 88 mcg DAILY08 PO Last administered on 06:14; Start 06/19/18 at 08:00 Latanoprost (Xalatan) 1 drop QHS OU Last administered on 07/04/18 20:51; Start 06/18/18 at 21:00 Potassium Chloride (KCl Oral Soln) 40 meq 1X ONCE PO Last administered on 06/19/18 13:43; Start 06/19/18 at 13:00; Stop 06/19/18 at 13:01; Status DC Insulin Glargine (Lantus) 5 units QHS SQ Last administered on 07/03/18at 22:12; Start 06/19/18 at 21:00; Stop 07/04/18 at 08:31; Status DC Insulin Human Lispro (HumaLOG) 0-5 UNITS TIDWMEALS SQ Last administered on 07/03/18at 17:36; Start 06/19/18 at 12:30; Stop 07/04/18 at 08:31; Status DC Dextrose (Dextrose 50%-Water Syringe) 12.5 gm PRN Q15MIN PRN IV SEE COMMENTS; Start 06/19/18 at 12:15 Clindamycin Phosphate 50 ml @ 100 mls/hr Q8HRS IV Last administered on 06/24/18at 14:17; Start 06/21/18 at 10:00; Stop 06/24/18 at 15:00; Status DC Lactobacillus Rhamnosus (Culturelle) 1 cap BID PO Last administered on 07/04/18at 20:51; Start 06/21/18 at 21:00 Milrinone Lactate/ Dextrose 100 ml @ 4.022 mls/ hr CONT PRN IV SEE I/O RECORD Last administered on 07/04/18at 00:06; Start 06/22/18 at 13:00 Iodixanol (Visipaque 320) 100 ml STK-MED ONCE .ROUTE ; Start 06/23/18 at 06:35; Stop 06/23/18 at 06:36; Status DC Lidocaine HCl (Lidocaine 1% 20ml Vial) 20 ml STK-MED ONCE .ROUTE ; Start 06/23/18 at 06:35; Stop 06/23/18 at 06:36; Status DC Heparin Sodium/ Sodium Chloride 1,500 ml @ As Directed STK-MED ONCE .ROUTE ; Start 06/23/18 at 06:35; Stop 06/23/18 at 06:36; Status DC Iodixanol (Visipaque 320) 100 ml STK-MED ONCE .ROUTE ; Start 06/23/18 at 07:26; Stop 06/23/18 at 07:27; Status DC Midazolam HCl (Versed) 2 mg STK-MED ONCE .ROUTE ; Start 06/23/18 at 07:30; Stop 06/23/18 at 07:31; Status DC Fentanyl Citrate (Fentanyl 2ml Vial) 100 mcg STK-MED ONCE .ROUTE ; Start 06/23/18 at 07:30; Stop 06/23/18 at 07:31; Status DC Verapamil HCl (Verapamil) 5 mg STK-MED ONCE .ROUTE ; Start 06/23/18 at 07:30; Stop 06/23/18 at 07:31; Status DC Heparin Sodium (Porcine) (Heparin Sodium) 10,000 unit STK-MED ONCE .ROUTE ; Start 06/23/18 at 07:30; Stop 06/23/18 at 07:31; Status DC Nitroglycerin (Nitroglycerin) 200 mcg STK-MED ONCE .ROUTE ; Start 06/23/18 at 07:30; Stop 06/23/18 at 07:31; Status DC Nitroglycerin (Nitroglycerin) 200 mcg 1X ONCE IART Last administered on 06/23/18at 08:20; Start 06/23/18 at 08:15; Stop 06/23/18 at 08:18; Status DC Verapamil HCl (Verapamil) 2.5 mg 1X ONCE IART Last administered on 06/23/18at 08:22; Start 06/23/18 at 08:15; Stop 06/23/18 at 08:18; Status DC Heparin Sodium (Porcine) (Heparin Sodium) 2,500 unit 1X ONCE IART Last administered on 06/23/18at 08:23; Start 06/23/18 at 08:15; Stop 06/23/18 at 08:18; Status DC Heparin Sodium/ Sodium Chloride (HEPARIN for ARTERIAL LINE FLUSH) 1,000 unit 1X ONCE IART Last administered on 06/23/18at 08:20; Start 06/23/18 at 08:15; Stop 06/23/18 at 08:18; Status DC Heparin Sodium/ Sodium Chloride (HEPARIN for ARTERIAL LINE FLUSH) 1,000 unit 1X ONCE IART Last administered on 06/23/18at 08:20; Start 06/23/18 at 08:15; Stop 06/23/18 at 08:18; Status DC Midazolam HCl (Versed) 1.5 mg 1X ONCE IV Last administered on 06/23/18 08:21; Start 06/23/18 at 08:15; Stop 06/23/18 at 08:18; Status DC Fentanyl Citrate (Fentanyl 2ml Vial) 75 mcg 1X ONCE IV Last administered on 06/23/18 08:22; Start 06/23/18 at 08:15; Stop 06/23/18 at 08:18; Status DC Iodixanol (Visipaque 320) 99 ml 1X ONCE IART Last administered on 06/23/18 08:20; Start 06/23/18 at 08:15; Stop 06/23/18 at 08:18; Status DC Lidocaine HCl (Lidocaine 1% 20ml Vial) 1 ml 1X ONCE INJ Last administered on 06/23/18 08:20; Start 06/23/18 at 08:15; Stop 06/23/18 at 08:18; Status DC Info (CONTRAST GIVEN -- Rx MONITORING) 1 each PRN DAILY PRN MC SEE COMMENTS; Start 06/23/18 at 08:30; Stop 06/25/18 at 08:29; Status DC Sodium Chloride 250 ml @ 250 mls/hr 1X ONCE IV Last administered on 06/23/18at 11:07; Start 06/23/18 at 11:15; Stop 06/23/18 at 12:14; Status DC Furosemide (Lasix) 40 mg 1X ONCE IVP Last administered on 06/23/18at 20:46; Start 06/23/18 at 20:15; Stop 06/23/18 at 20:19; Status DC Magnesium Sulfate 50 ml @ 25 mls/hr 1X ONCE IV Last administered on 06/24/18at 14:13; Start 06/24/18 at 12:30; Stop 06/24/18 at 14:29; Status DC Potassium Chloride (Klor-Con) 40 meq 1X ONCE PO Last administered on 06/24/18at 14:14; Start 06/24/18 at 12:30; Stop 06/24/18 at 12:31; Status DC Clindamycin HCl (Cleocin) 300 mg QID PO Last administered on 06/28/18at 20:56; Start 06/24/18 at 21:00; Stop 06/29/18 at 15:41; Status DC Potassium Chloride (Klor-Con) 40 meq DAILY PO Last administered on 07/04/18at 09:19; Start 06/25/18 at 11:15 Magnesium Sulfate 50 ml @ 25 mls/hr 1X ONCE IV Last administered on 06/25/18at 12:07; Start 06/25/18 at 11:15; Stop 06/25/18 at 13:14; Status DC Potassium Chloride (Klor-Con) 40 meq 1X ONCE PO Last administered on 06/26/18at 08:50; Start 06/26/18 at 07:45; Stop 06/26/18 at 07:50; Status DC Clopidogrel Bisulfate (Plavix) 300 mg 1X ONCE PO Last administered on 06/26/18at 13:10; Start 06/26/18 at 11:00; Stop 06/26/18 at 11:06; Status DC Clopidogrel Bisulfate (Plavix) 75 mg DAILYWBKFT PO Last administered on 07/04/18at 09:19; Start 06/27/18 at 08:00 Methylprednisolone Sodium Succinate (SOLU-Medrol 40MG VIAL) 40 mg Q8HRS IV Last administered on 07/04/18at 06:14; Start 06/27/18 at 09:15; Stop 07/04/18 at 08:00; Status DC Atorvastatin Calcium (Lipitor) 40 mg QHS PO Last administered on 07/04/18at 20:51; Start 06/28/18 at 21:00 Heparin Sodium (Porcine) 5000 unit/Sodium Chloride 505 ml @ 505 mls/hr 1X ONCE IRR ; Start 06/29/18 at 06:00; Stop 06/29/18 at 06:59; Status DC Cefazolin Sodium/ Dextrose 50 ml @ 100 mls/hr 1X PREOP PRN IV on hold OR; Start 06/29/18 at 06:00; Stop 06/29/18 at 11:19; Status DC Ondansetron HCl (Zofran) 4 mg PRN Q6HRS PRN IV NAUSEA/VOMITING; Start 06/29/18 at 07:00; Stop 06/30/18 at 06:59; Status DC Fentanyl Citrate (Fentanyl 2ml Vial) 25 mcg PRN Q5MIN PRN IV MILD PAIN; Start 06/29/18 at 07:00; Stop 06/30/18 at 06:59; Status DC Fentanyl Citrate (Fentanyl 2ml Vial) 50 mcg PRN Q5MIN PRN IV MODERATE TO SEVERE PAIN; Start 06/29/18 at 07:00; Stop 06/30/18 at 06:59; Status DC Morphine Sulfate (Morphine Sulfate) 1 mg PRN Q10MIN PRN IV SEVERE PAIN; Start 06/29/18 at 07:00; Stop 06/30/18 at 06:59; Status DC Ringer's Solution 1,000 ml @ 30 mls/hr Q24H IV Last administered on 06/29/18at 10:12; Start 06/29/18 at 07:00; Stop 06/29/18 at 18:59; Status DC Lidocaine HCl (Xylocaine-Mpf 1% 2ml Vial) 2 ml PRN 1X PRN ID PRIOR TO IV START; Start 06/29/18 at 07:00; Stop 06/30/18 at 06:59; Status DC Hydromorphone HCl (Dilaudid) 0.5 mg PRN Q10MIN PRN IV SEV PAIN, Second choice; Start 06/29/18 at 07:00; Stop 06/30/18 at 06:59; Status DC Prochlorperazine Edisylate (Compazine) 5 mg PACU PRN PRN IV NAUSEA, MRX1; Start 06/29/18 at 07:00; Stop 06/30/18 at 06:59; Status DC Bupivacaine HCl/ Epinephrine Bitart (Sensorcain-Mpf Epi 0.5%-[id number]) 30 ml STK-MED ONCE .ROUTE ; Start 06/29/18 at 05:59; Stop 06/29/18 at 06:59; Status DC Gelatin (Gelfoam Size 12-7mm) 1 each STK-MED ONCE .ROUTE ; Start 06/29/18 at 05:59; Stop 06/29/18 at 06:59; Status DC Iohexol (Omnipaque 300 Mg/ml) 100 ml STK-MED ONCE .ROUTE ; Start 06/29/18 at 0 5:59; Stop 06/29/18 at 07:00; Status DC Bupivacaine HCl (Sensorcaine Mpf 0.25%) 30 ml STK-MED ONCE .ROUTE ; Start 06/29/18 at 05:59; Stop 06/29/18 at 07:00; Status DC Papaverine HCl 60 mg STK-MED ONCE .ROUTE ; Start 06/29/18 at 06:00; Stop 06/29/18 at 07:01; Status DC Thrombin 20,000 unit STK-MED ONCE TP ; Start 06/29/18 at 06:00; Stop 06/29/18 at 07:01; Status DC Sodium Chloride (SODIUM CHLORIDE 20ml) 20 ml STK-MED ONCE IJ ; Start 06/29/18 at 09:46; Stop 06/29/18 at 09:47; Status DC Famotidine (Pepcid Vial) 20 mg STK-MED ONCE .ROUTE ; Start 06/29/18 at 09:46; Stop 06/29/18 at 09:47; Status DC Ondansetron HCl (Zofran) 4 mg STK-MED ONCE .ROUTE ; Start 06/29/18 at 09:46; Stop 06/29/18 at 09:47; Status DC Dexamethasone Sodium Phosphate (Decadron) 20 mg STK-MED ONCE .ROUTE ; Start 06/29/18 at 09:46; Stop 06/29/18 at 09:47; Status DC Lidocaine HCl (Lidocaine Pf 2% Vial) 5 ml STK-MED ONCE .ROUTE ; Start 06/29/18 at 09:46; Stop 06/29/18 at 09:47; Status DC Etomidate (Amidate) 20 mg STK-MED ONCE IV ; Start 06/29/18 at 09:46; Stop 06/29/18 at 09:47; Status DC Phenylephrine HCl (PHENYLEPHRINE in 0.9% NACL PF) 1 mg STK-MED ONCE IV ; Start 06/29/18 at 09:46; Stop 06/29/18 at 09:47; Status DC Fentanyl Citrate (Fentanyl 2ml Vial) 100 mcg STK-MED ONCE .ROUTE ; Start 06/29/18 at 09:47; Stop 06/29/18 at 09:48; Status DC Hydromorphone HCl (Dilaudid) 2 mg STK-MED ONCE .ROUTE ; Start 06/29/18 at 09:47; Stop 06/29/18 at 09:48; Status DC Glycopyrrolate (Robinul) 1 mg STK-MED ONCE .ROUTE ; Start 06/29/18 at 09:47; Stop 06/29/18 at 09:48; Status DC Rocuronium [place] (Zemuron) 100 mg STK-MED ONCE .ROUTE ; Start 06/29/18 at 09:47; Stop 06/29/18 at 09:48; Status DC Neostigmine Methylsulfate (Neostigmine Methylsulfate) 5 mg STK-MED ONCE .ROUTE ; Start 06/29/18 at 09:47; Stop 06/29/18 at 09:48; Status DC Albumin Human 0 ml @ As Directed STK-MED ONCE IV ; Start 06/29/18 at 09:48; Stop 06/29/18 at 09:49; Status DC Iodixanol (Visipaque 320) 100 ml STK-MED ONCE .ROUTE ; Start 06/29/18 at 10:11; Stop 06/29/18 at 10:12; Status DC Lidocaine HCl (Lidocaine 1% 20ml Vial) 20 ml STK-MED ONCE .ROUTE ; Start 06/29/18 at 10:11; Stop 06/29/18 at 10:12; Status DC Iodixanol (Visipaque 320) 50 ml STK-MED ONCE .ROUTE ; Start 06/29/18 at 10:11; Stop 06/29/18 at 10:12; Status DC Heparin Sodium/ Sodium Chloride 1,000 ml @ As Directed STK-MED ONCE .ROUTE ; Start 06/29/18 at 10:11; Stop 06/29/18 at 10:12; Status DC Bupivacaine HCl (Sensorcaine Mpf 0.5%) 30 ml STK-MED ONCE .ROUTE Last administered on 06/29/18at 12:42; Start 06/29/18 at 09:59; Stop 06/29/18 at 10:59; Status DC Bacitracin (Bacitracin) 50,000 unit STK-MED ONCE IRR ; Start 06/29/18 at 10:00; Stop 06/29/18 at 11:00; Status DC Vancomycin HCl 250 ml @ 250 mls/hr 1X ONCE IV Last administered on 06/29/18at 11:15; Start 06/29/18 at 11:15; Stop 06/29/18 at 12:14; Status DC Heparin Sodium (Porcine) (Heparin Sodium) 10,000 unit STK-MED ONCE .ROUTE ; Start 06/29/18 at 11:49; Stop 06/29/18 at 11:50; Status DC Cellulose (Surgicel Fibrillar 1x2) 1 each STK-MED ONCE .ROUTE ; Start 06/29/18 at 11:50; Stop 06/29/18 at 11:51; Status DC Phenylephrine HCl (Justin-Synephrine Inj) 10 mg STK-MED ONCE .ROUTE ; Start 06/29/18 at 11:57; Stop 06/29/18 at 11:58; Status DC Sevoflurane (Ultane) 90 ml STK-MED ONCE IH ; Start 06/29/18 at 12:07; Stop 06/29/18 at 12:08; Status DC Heparin Sodium/ Sodium Chloride 500 ml @ As Directed STK-MED ONCE .ROUTE ; Start 06/29/18 at 12:35; Stop 06/29/18 at 12:36; Status DC Iodixanol (Visipaque 320) 100 ml STK-MED ONCE .ROUTE ; Start 06/29/18 at 12:52; Stop 06/29/18 at 12:53; Status DC Iodixanol (Visipaque 320) 100 ml STK-MED ONCE .ROUTE ; Start 06/29/18 at 13:17; Stop 06/29/18 at 13:18; Status DC Lidocaine HCl (Lidocaine 1% 20ml Vial) 20 ml STK-MED ONCE .ROUTE ; Start 06/29/18 at 13:17; Stop 06/29/18 at 13:18; Status DC Heparin Sodium/ Sodium Chloride 1,000 ml @ As Directed STK-MED ONCE .ROUTE ; Start 06/29/18 at 13:18; Stop 06/29/18 at 13:19; Status DC Heparin Sodium (Porcine) (Heparin Sodium) 10,000 unit STK-MED ONCE .ROUTE ; Start 06/29/18 at 13:19; Stop 06/29/18 at 13:20; Status DC Heparin Sodium/ Sodium Chloride (HEPARIN for ARTERIAL LINE FLUSH) 1,000 unit 1X ONCE IART Last administered on 06/29/18at 14:15; Start 06/29/18 at 14:15; Stop 06/29/18 at 14:16; Status DC Heparin Sodium/ Sodium Chloride (HEPARIN for ARTERIAL LINE FLUSH) 1,000 unit 1X ONCE IART Last administered on 06/29/18at 14:15; Start 06/29/18 at 14:15; Stop 06/29/18 at 14:16; Status DC Heparin Sodium (Porcine) (Heparin Sodium) 4,000 unit 1X ONCE IV Last administered on 06/29/18at 14:15; Start 06/29/18 at 14:15; Stop 06/29/18 at 14:16; Status DC Iodixanol (Visipaque 320) 100 ml 1X ONCE IART Last administered on 06/29/18at 14:30; Start 06/29/18 at 14:30; Stop 06/29/18 at 14:31; Status DC Heparin Sodium/ Sodium Chloride 500 ml @ As Directed STK-MED ONCE .ROUTE ; Start 06/29/18 at 14:35; Stop 06/29/18 at 14:36; Status DC Nitroglycerin (Nitroglycerin) 200 mcg 1X ONCE IART Last administered on 06/29/18at 15:30; Start 06/29/18 at 15:30; Stop 06/29/18 at 15:31; Status DC Iodixanol (Visipaque 320) 100 ml STK-MED ONCE .ROUTE ; Start 06/29/18 at 15:51; Stop 06/29/18 at 15:52; Status DC Iodixanol (Visipaque 320) 100 ml STK-MED ONCE .ROUTE ; Start 06/29/18 at 16:52; Stop 06/29/18 at 16:53; Status DC Aspirin (Aspirin) 300 mg 1X ONCE KS Last administered on 06/29/18at 18:18; Start 06/29/18 at 17:30; Stop 06/29/18 at 17:31; Status DC Clopidogrel Bisulfate (Plavix) 300 mg 1X ONCE PO Last administered on 06/29/18at 18:18; Start 06/29/18 at 17:30; Stop 06/29/18 at 17:31; Status DC Fentanyl Citrate 30 ml @ 0 mls/hr CONT PRN IV SEE PROTOCOL Last administered on 07/01/18at 04:49; Start 06/29/18 at 17:30; Stop 07/02/18 at 15:47; Status DC Fentanyl Citrate (Fentanyl 2ml Vial) 25 mcg PRN Q1HR PRN IV SEE COMMENTS Last administered on 07/01/18at 14:48; Start 06/29/18 at 17:30 Fentanyl Citrate (Fentanyl 2ml Vial) 50 mcg PRN Q1HR PRN IV SEE COMMENTS; Start 06/29/18 at 17:30 Chlorhexidine Gluconate (Peridex) 15 ml BID MM Last administered on 07/02/18at 21:47; Start 06/29/18 at 21:00; Stop 07/03/18 at 10:29; Status DC Morphine Sulfate (Morphine Sulfate) 2 mg PRN Q1HR PRN IV SEE COMMENTS.; Start 06/29/18 at 17:30 Morphine Sulfate (Morphine Sulfate) 4 mg PRN Q1HR PRN IV SEE COMMENTS.; Start 06/29/18 at 17:30 Midazolam HCl 100 ml @ 0 mls/hr CONT PRN IV SEE PROTOCOL Last administered on 06/30/18at 12:04; Start 06/29/18 at 17:30; Stop 07/04/18 at 08:07; Status DC Vecuronium [place] (Norcuron Bolus) 6 mg PRN Q2HRS PRN IV ANXIETY / AGITATION; Start 06/29/18 at 17:30; Stop 07/02/18 at 15:47; Status DC Heparin Sodium (Porcine) 5000 unit/Sodium Chloride 505 ml @ 505 mls/hr 1X ONCE IRR Last administered on 06/29/18at 20:34; Start 06/29/18 at 19:30; Stop 06/29/18 at 20:30; Status DC Iohexol (Omnipaque 300 Mg/ml) 100 ml STK-MED ONCE .ROUTE ; Start 06/29/18 at 18:16; Stop 06/29/18 at 19:17; Status DC Cellulose (Surgicel Fibrillar 1x2) 1 each STK-MED ONCE .ROUTE ; Start 06/29/18 at 19:17; Stop 06/29/18 at 19:18; Status DC Rocuronium [place] (Zemuron) 50 mg STK-MED ONCE .ROUTE ; Start 06/29/18 at 19:42; Stop 06/29/18 at 19:43; Status DC Vancomycin HCl 1 gm/Sodium Chloride 250 ml @ 250 mls/hr 1X ONCE IV Last administered on 06/29/18at 20:34; Start 06/29/18 at 20:45; Stop 06/29/18 at 21:44; Status DC Vancomycin HCl 250 ml @ 250 mls/hr 1X ONCE IV ; Start 06/29/18 at 20:45; Stop 06/29/18 at 21:44; Status UNV Hydrocortisone Sodium Succinate (Solu-CORTEF) 100 mg STK-MED ONCE .ROUTE ; Start 06/29/18 at 20:50; Stop 06/29/18 at 20:51; Status DC Heparin Sodium (Porcine) (Heparin Sodium) 10,000 unit STK-MED ONCE .ROUTE ; Start 06/29/18 at 21:01; Stop 06/29/18 at 21:02; Status DC Phenylephrine HCl (PHENYLEPHRINE in 0.9% NACL PF) 1 mg STK-MED ONCE IV ; Start 06/29/18 at 21:35; Stop 06/29/18 at 21:36; Status DC Sevoflurane (Ultane) 90 ml STK-MED ONCE IH ; Start 06/29/18 at 21:36; Stop 06/29/18 at 21:37; Status DC Protamine Sulfate (Protamine) 50 mg STK-MED ONCE IV ; Start 06/29/18 at 21:45; Stop 06/29/18 at 21:46; Status DC Cellulose (Surgicel Fibrillar 1x2) 1 each STK-MED ONCE TP Last administered on 06/29/18at 21:52; Start 06/29/18 at 21:52; Stop 06/29/18 at 21:58; Status DC Sodium Chloride 500 ml @ 500 mls/hr 1X ONCE IV Last administered on 06/29/18at 23:47; Start 06/29/18 at 23:00; Stop 06/29/18 at 23:59; Status DC Sodium Chloride 500 ml @ 500 mls/hr 1X ONCE IV Last administered on 06/30/18at 00:27; Start 06/30/18 at 00:00; Stop 06/30/18 at 00:59; Status DC Norepinephrine Bitartrate 250 ml @ 1.875 mls/ hr CONT PRN IV SEE I/O RECORD Last administered on 06/30/18at 00:26; Start 06/29/18 at 23:45; Stop 07/04/18 at 08:07; Status DC Rocuronium [place] (Zemuron) 50 mg STK-MED ONCE .ROUTE ; Start 06/29/18 at 12:00; Stop 06/30/18 at 08:09; Status DC Aspirin (Aspirin) 300 mg DAILY KS Last administered on 07/02/18at 08:47; Start 06/30/18 at 10:00; Stop 07/02/18 at 15:43; Status DC Potassium Chloride (KCl Oral Soln) 40 meq DAILY PEG Last administered on 07/02/18at 08:43; Start 06/30/18 at 10:00; Stop 07/02/18 at 15:43; Status DC Cefazolin Sodium/ Dextrose (Ancef 2gm Premix) 2 gm STK-MED ONCE IV ; Start 06/29/18 at 11:00; Stop 06/30/18 at 12:24; Status DC Hydralazine HCl (Apresoline Inj) 10 mg PRN Q6HRS PRN IVP ELEVATED BP, SEE COMMENTS; Start 06/30/18 at 14:00; Status UNV Albumin Human 100 ml @ 100 mls/hr 1X ONCE IV Last administered on 06/30/18at 19:39; Start 06/30/18 at 19:15; Stop 06/30/18 at 20:14; Status DC Phenylephrine HCl (PHENYLEPHRINE in 0.9% NACL PF) 0.1 mg 1X ONCE IV Last administered on 06/30/18at 19:15; Start 06/30/18 at 19:15; Stop 06/30/18 at 19:16; Status DC Aspirin (Ecotrin) 81 mg PRN DAILY PRN PO WHEN PO TOLERATED; Start 07/01/18 at 10:45; Stop 07/02/18 at 15:43; Status DC Fentanyl Citrate (Fentanyl 2ml Vial) 25 mcg PRN Q1HR PRN IV SEE COMMENTS; Start 07/01/18 at 13:30; Stop 07/02/18 at 09:04; Status DC Fentanyl Citrate (Fentanyl 2ml Vial) 50 mcg PRN Q1HR PRN IV SEE COMMENTS; Start 07/01/18 at 13:30; Stop 07/02/18 at 09:04; Status DC Chlorhexidine Gluconate (Peridex) 15 ml BID MM ; Start 07/01/18 at 21:00; Status Cancel Dexmedetomidine HCl 200 mcg/ Sodium Chloride 50 ml @ 0 mls/hr CONT PRN IV PER PROTOCOL Last administered on 07/02/18at 01:52; Start 07/01/18 at 13:30; Stop 07/04/18 at 08:07; Status DC Sodium Chloride 500 ml @ 500 mls/hr 1X PRN PRN IV SEE COMMENTS; Start 07/01/18 at 13:30 Atropine Sulfate (ATROPINE 0.5mg SYRINGE) 0.5 mg PRN Q5MIN PRN IV SEE COMMENTS; Start 07/01/18 at 13:30 Furosemide (Lasix) 40 mg DAILY IV Last administered on 07/05/18at 08:44; Start 07/02/18 at 09:00 Aspirin (Ecotrin) 81 mg DAILY08 PO Last administered on 07/04/18at 09:20; Start 07/03/18 at 08:00 Furosemide (Lasix) 40 mg 1X ONCE IVP Last administered on 07/02/18at 21:30; Start 07/02/18 at 21:00; Stop 07/02/18 at 21:01; Status DC Methylprednisolone Sodium Succinate (SOLU-Medrol 40MG VIAL) 40 mg Q12HR IV Last administered on 07/05/18at 08:44; Start 07/04/18 at 21:00 Azithromycin (Zithromax) 500 mg 1X ONCE PO Last administered on 07/04/18at 09:21; Start 07/04/18 at 09:00; Stop 07/04/18 at 09:01; Status DC Azithromycin (Zithromax) 250 mg DAILY PO ; Start 07/05/18 at 09:00 Insulin Glargine (Lantus) 10 units QHS SQ Last administered on 07/04/18at 21:05; Start 07/04/18 at 21:00 Insulin Human Lispro (HumaLOG) 3 units TIDAC SQ Last administered on 07/04/18at 17:45; Start 07/04/18 at 11:30 Insulin Human Lispro (HumaLOG) 0-7 UNITS TIDWMEALS SQ Last administered on 07/04/18at 17:44; Start 07/04/18 at 12:00 Dextrose (Dextrose 50%-Water Syringe) 12.5 gm PRN Q15MIN PRN IV SEE COMMENTS; Start 07/04/18 at 08:30; Stop 07/04/18 at 13:13; Status DC Heparin Sodium/ Dextrose 500 ml @ 10 mls/hr CONT PRN IV SEE I/O RECORD; Start 07/04/18 at 09:45; Stop 07/04/18 at 11:06; Status DC Enoxaparin Sodium (Lovenox 40mg Syringe) 40 mg Q24H SQ ; Start 07/05/18 at 09:00 Lorazepam (Ativan) 1 mg PRN Q8HRS PRN IV ANXIETY / AGITATION Last administered on 07/05/18at 08:44; Start 07/05/18 at 08:00 Acetaminophen/ Hydrocodone Bitart (Lortab 5/325) 1 tab PRN Q4HRS PRN PO MODERATE - SEVERE PAIN; Start 07/05/18 at 09:15 Active Scripts Active Clindamycin Hcl 300 Mg Capsule 300 Mg PO QID 7 Days Lasix (Furosemide) 40 Mg Tablet 40 Mg PO BID 14 Days Aldactone (Spironolactone) 25 Mg Tablet 25 Mg PO DAILY MDD 1 Lisinopril 5 Mg Tablet 2.5 Mg PO DAILY MDD 1 Proair Hfa (Albuterol Sulfate) 8.5 Gm Hfa.aer.ad 2.5 Mg NEB PRN Q4HRS PRN MDD 1 Reported Aspir-Low (Aspirin) 81 Mg Tablet.dr 1 Tab PO DAILY Triamterene-Hctz 37.5-25 Mg Cp (Triamterene/Hydrochlorothiazid) 1 Each Capsule 1 Cap PO DAILY Synthroid (Levothyroxine Sodium) 88 Mcg Tablet 1 Tab PO DAILY Latanoprost 2.5 Ml Drops 1 Drop EACHEYE QHS Vitals/I & O Vital Sign - Last 24 Hours 07/04/18 07/04/18 07/04/18 07/04/18 10:53 11:54 15:13 15:35 Temp 98.0 98.0 Pulse 128 122 Resp 20 B/P (MAP) 133/80 (97) 143/83 (103) Pulse Ox 87 95 O2 Delivery Nasal Cannula Nasal Cannula Nasal Cannula Nasal Cannula O2 Flow Rate 3.0 4.0 3.0 2.0 07/04/18 07/04/18 07/04/18 07/04/18 18:23 19:39 20:03 22:54 Temp 97.6 97.6 Pulse 109 106 Resp 20 B/P (MAP) 121/72 (88) 146/92 (110) Pulse Ox 91 92 89 O2 Delivery Nasal Cannula Nasal Cannula Nasal Cannula Nasal Cannula O2 Flow Rate 2.0 3.0 3.0 3.0 07/05/18 07/05/18 07/05/18 07/05/18 00:06 02:57 03:53 07:35 Temp 98.1 98.0 98.1 98.0 Pulse 110 114 Resp 20 18 B/P (MAP) 126/75 (92) 127/79 (95) Pulse Ox 92 82 88 91 O2 Delivery Nasal Cannula Nasal Cannula Nasal Cannula Nasal Cannula O2 Flow Rate 3.0 4.0 5.0 4.0 07/05/18 07/05/18 07:54 08:02 Pulse Ox 95 O2 Delivery Nasal Cannula Nasal Cannula O2 Flow Rate 3.0 3.0 Intake and Output 07/04/18 07/04/18 07/05/18 15:00 23:00 07:00 Intake Total 440 ml 400 ml 0 ml Output Total 775 ml Balance 440 ml -375 ml 0 ml JULIUS ENGEL MD Jul 05, 2018 10:48
[2018-07-05 11:00] VITALS: BP 118/84
--- NOTE | 2018-07-05 12:10 | PDOC ---
PROGRESS NOTES Subjective Subjective Pt s/p left femoral endarterectomy and iliac stents, combined with coronary intervention She is sitting up in a chair, has no CP, no LE pain Objective Objective Vital Signs Date Time Temp Pulse Resp B/P (MAP) Pulse Ox O2 Delivery O2 Flow Rate FiO2 07/05/18 11:56 95 Nasal Cannula 3.0 07/05/18 07:35 98.0 114 18 127/79 (95) 98.0 Intake and Output 07/05/18 06:59 Intake Total 840 ml Output Total 775 ml Balance 65 ml Intake Oral 840 ml Output Urine Total 775 ml # Bowel Movements 1 Physical Exam Physical Exam left groin dressing taken down --> incision looks good Abdomen: Normal bowel sounds Heart: Regular rate, No murmurs General: Alert, Oriented X3 Lungs: Clear to auscultation Assessment Assessment Problems Medical Problems: (1) Congestive heart failure Status: Acute Plan Plan of Care Recommend remove alvarez if not needed for diuresis Up an ambulate Daily dressing changes to left groin Comment Review of Relevant I have reviewed the following items rosangela (where applicable) has been applied. Labs Laboratory Tests Test 07/03/18 17:34 07/03/18 21:26 07/04/18 06:20 07/04/18 08:27 Glucose (Fingerstick) 246 mg/dL (70-99) 217 mg/dL (70-99) 198 mg/dL (70-99) White Blood Count 7.1 x10^3/uL (4.0-11.0) Red Blood Count 3.90 x10^6/uL (3.50-5.40) Hemoglobin 11.2 g/dL (12.0-15.5) Hematocrit 34.7 % (36.0-47.0) Mean Corpuscular Volume 89 fL (79-100) Mean Corpuscular Hemoglobin 29 pg (25-35) Mean Corpuscular Hemoglobin Concent 32 g/dL (31-37) Red Cell Distribution Width 18.3 % (11.5-14.5) Platelet Count 238 x10^3/uL (140-400) Neutrophils (%) (Auto) 89 % (31-73) Lymphocytes (%) (Auto) 5 % (24-48) Monocytes (%) (Auto) 5 % (0-9) Eosinophils (%) (Auto) 0 % (0-3) Basophils (%) (Auto) 0 % (0-3) Neutrophils # (Auto) 6.3 x10^3uL (1.8-7.7) Lymphocytes # (Auto) 0.4 x10^3/uL (1.0-4.8) Monocytes # (Auto) 0.4 x10^3/uL (0.0-1.1) Eosinophils # (Auto) 0.0 x10^3/uL (0.0-0.7) Basophils # (Auto) 0.0 x10^3/uL (0.0-0.2) Sodium Level 133 mmol/L (136-145) Potassium Level 4.5 mmol/L (3.5-5.1) Chloride Level 97 mmol/L (98-107) Carbon Dioxide Level 32 mmol/L (21-32) Anion Gap 4 (6-14) Blood Urea Nitrogen 18 mg/dL (7-20) Creatinine 0.9 mg/dL (0.6-1.0) Estimated GFR (Cockcroft-Gault) 61.5 Glucose Level 201 mg/dL (70-99) Calcium Level 8.6 mg/dL (8.5-10.1) Test 07/04/18 12:24 07/04/18 16:54 07/04/18 20:50 07/05/18 06:30 Glucose (Fingerstick) 254 mg/dL (70-99) 211 mg/dL (70-99) 137 mg/dL (70-99) 197 mg/dL (70-99) Test 07/05/18 08:12 07/05/18 11:38 Glucose (Fingerstick) 147 mg/dL (70-99) 134 mg/dL (70-99) Laboratory Tests Test 07/04/18 12:24 07/04/18 16:54 07/04/18 20:50 07/05/18 06:30 Glucose (Fingerstick) 254 mg/dL (70-99) 211 mg/dL (70-99) 137 mg/dL (70-99) 197 mg/dL (70-99) Test 07/05/18 08:12 07/05/18 11:38 Glucose (Fingerstick) 147 mg/dL (70-99) 134 mg/dL (70-99) Medications Current Medications Furosemide (Lasix) 40 mg 1X ONCE IVP Last administered on 06/18/18 14:59; Start 06/18/18 at 14:00; Stop 06/18/18 at 14:47; Status DC Aspirin (Children'S Aspirin) 324 mg 1X ONCE PO Last administered on 06/18/18 14:59; Start 06/18/18 at 14:00; Stop 06/18/18 at 14:47; Status DC Potassium Chloride (KCl Oral Soln) 40 meq 1X ONCE PO Last administered on 06/18/18 14:59; Start 06/18/18 at 15:00; Stop 06/18/18 at 15:01; Status DC Furosemide (Lasix) 40 mg DAILY IVP ; Start 06/19/18 at 09:00; Stop 06/19/18 at 09:00; Status DC Furosemide (Lasix) 40 mg [id number] IVP ; Start 06/19/18 at 09:00; Stop 06/19/18 at 09:00; Status DC Lisinopril (Prinivil) 2.5 mg DAILY PO Last administered on 07/04/18at 09:21; Start 06/19/18 at 09:00 Furosemide (Lasix) 40 mg [id number] IV Last administered on 07/01/18 16:09; Start 06/18/18 at 16:00; Stop 07/01/18 at 17:45; Status DC Spironolactone (Aldactone) 25 mg DAILY PO Last administered on 07/04/18 09:20; Start 06/19/18 at 09:00 Heparin Sodium (Porcine) (Heparin Sodium) 5,000 unit Q12HR SQ Last administered on 07/03/18at 08:11; Start 06/18/18 at 16:00; Stop 07/04/18 at 09:35; Status DC Sodium Chloride (Normal Saline Flush) 3 ml QSHIFT PRN IV AFTER MEDS AND BLOOD DRAWS; Start 06/18/18 at 16:00 Ondansetron HCl (Zofran) 4 mg PRN Q4HRS PRN IV NAUSEA/VOMITING; Start 06/18/18 at 16:00 Acetaminophen (Tylenol) 650 mg PRN Q4HRS PRN PO TEMP OVER 100.4F OR MILD PAIN Last administered on 06/28/18at 20:56; Start 06/18/18 at 16:00 Sodium Monofluorophosphate (Fleet Adult) 133 ml PRN DAILY PRN [facility] CONSTIPATION; Start 06/18/18 at 16:00 Diphenhydramine HCl (Benadryl) 25 mg PRN Q4HRS PRN IVP ITCHING Last administered on 06/28/18 20:56; Start 06/18/18 at 16:00 Docusate Sodium (Colace) 100 mg PRN BID PRN PO CONSTIPATION Last administered on 06/27/18 08:41; Start 06/18/18 at 16:00 Albuterol Sulfate (Ventolin Neb Soln) 2.5 mg PRN Q4HRS PRN NEB SHORTNESS OF BREATH; Start 06/18/18 at 16:00 Albuterol/ Ipratropium (Duoneb) 3 ml Q4HRS NEB Last administered on 07/05/18 11:54; Start 06/18/18 at 16:00 Aspirin (Ecotrin) 81 mg DAILY08 PO Last administered on 06/28/18 10:14; Start 06/19/18 at 08:00; Stop 07/01/18 at 10:41; Status DC Levothyroxine Sodium (Synthroid) 88 mcg DAILY08 PO Last administered on 07/04/18 06:14; Start 06/19/18 at 08:00 Latanoprost (Xalatan) 1 drop QHS OU Last administered on 07/04/18 20:51; Start 06/18/18 at 21:00 Potassium Chloride (KCl Oral Soln) 40 meq 1X ONCE PO Last administered on 06/19/18 13:43; Start 06/19/18 at 13:00; Stop 06/19/18 at 13:01; Status DC Insulin Glargine (Lantus) 5 units QHS SQ Last administered on 07/03/18 22:12; Start 06/19/18 at 21:00; Stop 07/04/18 at 08:31; Status DC Insulin Human Lispro (HumaLOG) 0-5 UNITS TIDWMEALS SQ Last administered on 07/03/18 17:36; Start 06/19/18 at 12:30; Stop 07/04/18 at 08:31; Status DC Dextrose (Dextrose 50%-Water Syringe) 12.5 gm PRN Q15MIN PRN IV SEE COMMENTS; Start 06/19/18 at 12:15 Clindamycin Phosphate 50 ml @ 100 mls/hr Q8HRS IV Last administered on 06/24/18at 14:17; Start 06/21/18 at 10:00; Stop 06/24/18 at 15:00; Status DC Lactobacillus Rhamnosus (Culturelle) 1 cap BID PO Last administered on 07/04/18at 20:51; Start 06/21/18 at 21:00 Milrinone Lactate/ Dextrose 100 ml @ 4.022 mls/ hr CONT PRN IV SEE I/O RECORD Last administered on 07/04/18at 00:06; Start 06/22/18 at 13:00 Iodixanol (Visipaque 320) 100 ml STK-MED ONCE .ROUTE ; Start 06/23/18 at 06:35; Stop 06/23/18 at 06:36; Status DC Lidocaine HCl (Lidocaine 1% 20ml Vial) 20 ml STK-MED ONCE .ROUTE ; Start 06/23/18 at 06:35; Stop 06/23/18 at 06:36; Status DC Heparin Sodium/ Sodium Chloride 1,500 ml @ As Directed STK-MED ONCE .ROUTE ; Start 06/23/18 at 06:35; Stop 06/23/18 at 06:36; Status DC Iodixanol (Visipaque 320) 100 ml STK-MED ONCE .ROUTE ; Start 06/23/18 at 07:26; Stop 06/23/18 at 07:27; Status DC Midazolam HCl (Versed) 2 mg STK-MED ONCE .ROUTE ; Start 06/23/18 at 07:30; Stop 06/23/18 at 07:31; Status DC Fentanyl Citrate (Fentanyl 2ml Vial) 100 mcg STK-MED ONCE .ROUTE ; Start 06/23/18 at 07:30; Stop 06/23/18 at 07:31; Status DC Verapamil HCl (Verapamil) 5 mg STK-MED ONCE .ROUTE ; Start 06/23/18 at 07:30; Stop 06/23/18 at 07:31; Status DC Heparin Sodium (Porcine) (Heparin Sodium) 10,000 unit STK-MED ONCE .ROUTE ; Start 06/23/18 at 07:30; Stop 06/23/18 at 07:31; Status DC Nitroglycerin (Nitroglycerin) 200 mcg STK-MED ONCE .ROUTE ; Start 06/23/18 at 07:30; Stop 06/23/18 at 07:31; Status DC Nitroglycerin (Nitroglycerin) 200 mcg 1X ONCE IART Last administered on 06/23/18 08:20; Start 06/23/18 at 08:15; Stop 06/23/18 at 08:18; Status DC Verapamil HCl (Verapamil) 2.5 mg 1X ONCE IART Last administered on 06/23/18 08:22; Start 06/23/18 at 08:15; Stop 06/23/18 at 08:18; Status DC Heparin Sodium (Porcine) (Heparin Sodium) 2,500 unit 1X ONCE IART Last administered on 06/23/18 08:23; Start 06/23/18 at 08:15; Stop 06/23/18 at 08:18; Status DC Heparin Sodium/ Sodium Chloride (HEPARIN for ARTERIAL LINE FLUSH) 1,000 unit 1X ONCE IART Last administered on 06/23/18 08:20; Start 06/23/18 at 08:15; Stop 06/23/18 at 08:18; Status DC Heparin Sodium/ Sodium Chloride (HEPARIN for ARTERIAL LINE FLUSH) 1,000 unit 1X ONCE IART Last administered on 06/23/18 08:20; Start 06/23/18 at 08:15; Stop 06/23/18 at 08:18; Status DC Midazolam HCl (Versed) 1.5 mg 1X ONCE IV Last administered on 06/23/18 08:21; Start 06/23/18 at 08:15; Stop 06/23/18 at 08:18; Status DC Fentanyl Citrate (Fentanyl 2ml Vial) 75 mcg 1X ONCE IV Last administered on 06/23/18 08:22; Start 06/23/18 at 08:15; Stop 06/23/18 at 08:18; Status DC Iodixanol (Visipaque 320) 99 ml 1X ONCE IART Last administered on 06/23/18 08:20; Start 06/23/18 at 08:15; Stop 06/23/18 at 08:18; Status DC Lidocaine HCl (Lidocaine 1% 20ml Vial) 1 ml 1X ONCE INJ Last administered on 06/23/18 08:20; Start 06/23/18 at 08:15; Stop 06/23/18 at 08:18; Status DC Info (CONTRAST GIVEN -- Rx MONITORING) 1 each PRN DAILY PRN MC SEE COMMENTS; Start 06/23/18 at 08:30; Stop 06/25/18 at 08:29; Status DC Sodium Chloride 250 ml @ 250 mls/hr 1X ONCE IV Last administered on 06/23/18at 11:07; Start 06/23/18 at 11:15; Stop 06/23/18 at 12:14; Status DC Furosemide (Lasix) 40 mg 1X ONCE IVP Last administered on 06/23/18at 20:46; Start 06/23/18 at 20:15; Stop 06/23/18 at 20:19; Status DC Magnesium Sulfate 50 ml @ 25 mls/hr 1X ONCE IV Last administered on 06/24/18at 14:13; Start 06/24/18 at 12:30; Stop 06/24/18 at 14:29; Status DC Potassium Chloride (Klor-Con) 40 meq 1X ONCE PO Last administered on 06/24/18at 14:14; Start 06/24/18 at 12:30; Stop 06/24/18 at 12:31; Status DC Clindamycin HCl (Cleocin) 300 mg QID PO Last administered on 06/28/18at 20:56; Start 06/24/18 at 21:00; Stop 06/29/18 at 15:41; Status DC Potassium Chloride (Klor-Con) 40 meq DAILY PO Last administered on 07/04/18at 09:19; Start 06/25/18 at 11:15 Magnesium Sulfate 50 ml @ 25 mls/hr 1X ONCE IV Last administered on 06/25/18at 12:07; Start 06/25/18 at 11:15; Stop 06/25/18 at 13:14; Status DC Potassium Chloride (Klor-Con) 40 meq 1X ONCE PO Last administered on 06/26/18at 08:50; Start 06/26/18 at 07:45; Stop 06/26/18 at 07:50; Status DC Clopidogrel Bisulfate (Plavix) 300 mg 1X ONCE PO Last administered on 06/26/18at 13:10; Start 06/26/18 at 11:00; Stop 06/26/18 at 11:06; Status DC Clopidogrel Bisulfate (Plavix) 75 mg DAILYWBKFT PO Last administered on 07/04/18at 09:19; Start 06/27/18 at 08:00 Methylprednisolone Sodium Succinate (SOLU-Medrol 40MG VIAL) 40 mg Q8HRS IV Last administered on 07/04/18at 06:14; Start 06/27/18 at 09:15; Stop 07/04/18 at 08:00; Status DC Atorvastatin Calcium (Lipitor) 40 mg QHS PO Last administered on 07/04/18at 20:51; Start 06/28/18 at 21:00 Heparin Sodium (Porcine) 5000 unit/Sodium Chloride 505 ml @ 505 mls/hr 1X ONCE IRR ; Start 06/29/18 at 06:00; Stop 06/29/18 at 06:59; Status DC Cefazolin Sodium/ Dextrose 50 ml @ 100 mls/hr 1X PREOP PRN IV on hold OR; Start 06/29/18 at 06:00; Stop 06/29/18 at 11:19; Status DC Ondansetron HCl (Zofran) 4 mg PRN Q6HRS PRN IV NAUSEA/VOMITING; Start 06/29/18 at 07:00; Stop 06/30/18 at 06:59; Status DC Fentanyl Citrate (Fentanyl 2ml Vial) 25 mcg PRN Q5MIN PRN IV MILD PAIN; Start 06/29/18 at 07:00; Stop 06/30/18 at 06:59; Status DC Fentanyl Citrate (Fentanyl 2ml Vial) 50 mcg PRN Q5MIN PRN IV MODERATE TO SEVERE PAIN; Start 06/29/18 at 07:00; Stop 06/30/18 at 06:59; Status DC Morphine Sulfate (Morphine Sulfate) 1 mg PRN Q10MIN PRN IV SEVERE PAIN; Start 06/29/18 at 07:00; Stop 06/30/18 at 06:59; Status DC Ringer's Solution 1,000 ml @ 30 mls/hr Q24H IV Last administered on 06/29/18at 10:12; Start 06/29/18 at 07:00; Stop 06/29/18 at 18:59; Status DC Lidocaine HCl (Xylocaine-Mpf 1% 2ml Vial) 2 ml PRN 1X PRN ID PRIOR TO IV START; Start 06/29/18 at 07:00; Stop 06/30/18 at 06:59; Status DC Hydromorphone HCl (Dilaudid) 0.5 mg PRN Q10MIN PRN IV SEV PAIN, Second choice; Start 06/29/18 at 07:00; Stop 06/30/18 at 06:59; Status DC Prochlorperazine Edisylate (Compazine) 5 mg PACU PRN PRN IV NAUSEA, MRX1; Start 06/29/18 at 07:00; Stop 06/30/18 at 06:59; Status DC Bupivacaine HCl/ Epinephrine Bitart (Sensorcain-Mpf Epi 0.5%-1:422401) 30 ml STK-MED ONCE .ROUTE ; Start 06/29/18 at 05:59; Stop 06/29/18 at 06:59; Status DC Gelatin (Gelfoam Size 12-7mm) 1 each STK-MED ONCE .ROUTE ; Start 06/29/18 at 05:59; Stop 06/29/18 at 06:59; Status DC Iohexol (Omnipaque 300 Mg/ml) 100 ml STK-MED ONCE .ROUTE ; Start 06/29/18 at 05:59; Stop 06/29/18 at 07:00; Status DC Bupivacaine HCl (Sensorcaine Mpf 0.25%) 30 ml STK-MED ONCE .ROUTE ; Start 06/29/18 at 05:59; Stop 06/29/18 at 07:00; Status DC Papaverine HCl 60 mg STK-MED ONCE .ROUTE ; Start 06/29/18 at 06:00; Stop 06/29/18 at 07:01; Status DC Thrombin 20,000 unit STK-MED ONCE TP ; Start 06/29/18 at 06:00; Stop 06/29/18 at 07:01; Status DC Sodium Chloride (SODIUM CHLORIDE 20ml) 20 ml STK-MED ONCE IJ ; Start 06/29/18 at 09:46; Stop 06/29/18 at 09:47; Status DC Famotidine (Pepcid Vial) 20 mg STK-MED ONCE .ROUTE ; Start 06/29/18 at 09:46; Stop 06/29/18 at 09:47; Status DC Ondansetron HCl (Zofran) 4 mg STK-MED ONCE .ROUTE ; Start 06/29/18 at 09:46; Stop 06/29/18 at 09:47; Status DC Dexamethasone Sodium Phosphate (Decadron) 20 mg STK-MED ONCE .ROUTE ; Start 06/29/18 at 09:46; Stop 06/29/18 at 09:47; Status DC Lidocaine HCl (Lidocaine Pf 2% Vial) 5 ml STK-MED ONCE .ROUTE ; Start 06/29/18 at 09:46; Stop 06/29/18 at 09:47; Status DC Etomidate (Amidate) 20 mg STK-MED ONCE IV ; Start 06/29/18 at 09:46; Stop at 09:47; Status DC Phenylephrine HCl (PHENYLEPHRINE in 0.9% NACL PF) 1 mg STK-MED ONCE IV ; Start 06/29/18 at 09:46; Stop 06/29/18 at 09:47; Status DC Fentanyl Citrate (Fentanyl 2ml Vial) 100 mcg STK-MED ONCE .ROUTE ; Start 06/29/18 at 09:47; Stop 06/29/18 at 09:48; Status DC Hydromorphone HCl (Dilaudid) 2 mg STK-MED ONCE .ROUTE ; Start 06/29/18 at 09:47; Stop 06/29/18 at 09:48; Status DC Glycopyrrolate (Robinul) 1 mg STK-MED ONCE .ROUTE ; Start 06/29/18 at 09:47; Stop 06/29/18 at 09:48; Status DC Rocuronium Milroy (Zemuron) 100 mg STK-MED ONCE .ROUTE ; Start 06/29/18 at 09:47; Stop 06/29/18 at 09:48; Status DC Neostigmine Methylsulfate (Neostigmine Methylsulfate) 5 mg STK-MED ONCE .ROUTE ; Start 06/29/18 at 09:47; Stop 06/29/18 at 09:48; Status DC Albumin Human 0 ml @ As Directed STK-MED ONCE IV ; Start 06/29/18 at 09:48; Stop 06/29/18 at 09:49; Status DC Iodixanol (Visipaque 320) 100 ml STK-MED ONCE .ROUTE ; Start 06/29/18 at 10:11; Stop 06/29/18 at 10:12; Status DC Lidocaine HCl (Lidocaine 1% 20ml Vial) 20 ml STK-MED ONCE .ROUTE ; Start 06/29/18 at 10:11; Stop 06/29/18 at 10:12; Status DC Iodixanol (Visipaque 320) 50 ml STK-MED ONCE .ROUTE ; Start 06/29/18 at 10:11; Stop 06/29/18 at 10:12; Status DC Heparin Sodium/ Sodium Chloride 1,000 ml @ As Directed STK-MED ONCE .ROUTE ; Start 06/29/18 at 10:11; Stop 06/29/18 at 10:12; Status DC Bupivacaine HCl (Sensorcaine Mpf 0.5%) 30 ml STK-MED ONCE .ROUTE Last administered on 06/29/18at 12:42; Start 06/29/18 at 09:59; Stop 06/29/18 at 10:59; Status DC Bacitracin (Bacitracin) 50,000 unit STK-MED ONCE IRR ; Start 06/29/18 at 10:00; Stop 06/29/18 at 11:00; Status DC Vancomycin HCl 250 ml @ 250 mls/hr 1X ONCE IV Last administered on 06/29/18at 11:15; Start 06/29/18 at 11:15; Stop 06/29/18 at 12:14; Status DC Heparin Sodium (Porcine) (Heparin Sodium) 10,000 unit STK-MED ONCE .ROUTE ; Start 06/29/18 at 11:49; Stop 06/29/18 at 11:50; Status DC Cellulose (Surgicel Fibrillar 1x2) 1 each STK-MED ONCE .ROUTE ; Start 06/29/18 at 11:50; Stop 06/29/18 at 11:51; Status DC Phenylephrine HCl (Justin-Synephrine Inj) 10 mg STK-MED ONCE .ROUTE ; Start 06/29/18 at 11:57; Stop 06/29/18 at 11:58; Status DC Sevoflurane (Ultane) 90 ml STK-MED ONCE IH ; Start 06/29/18 at 12:07; Stop 06/29/18 at 12:08; Status DC Heparin Sodium/ Sodium Chloride 500 ml @ As Directed STK-MED ONCE .ROUTE ; Start 06/29/18 at 12:35; Stop 06/29/18 at 12:36; Status DC Iodixanol (Visipaque 320) 100 ml STK-MED ONCE .ROUTE ; Start 06/29/18 at 12:52; Stop 06/29/18 at 12:53; Status DC Iodixanol (Visipaque 320) 100 ml STK-MED ONCE .ROUTE ; Start 06/29/18 at 13:17; Stop 06/29/18 at 13:18; Status DC Lidocaine HCl (Lidocaine 1% 20ml Vial) 20 ml STK-MED ONCE .ROUTE ; Start 06/29/18 at 13:17; Stop 06/29/18 at 13:18; Status DC Heparin Sodium/ Sodium Chloride 1,000 ml @ As Directed STK-MED ONCE .ROUTE ; Start 06/29/18 at 13:18; Stop 06/29/18 at 13:19; Status DC Heparin Sodium (Porcine) (Heparin Sodium) 10,000 unit STK-MED ONCE .ROUTE ; Start 06/29/18 at 13:19; Stop 06/29/18 at 13:20; Status DC Heparin Sodium/ Sodium Chloride (HEPARIN for ARTERIAL LINE FLUSH) 1,000 unit 1X ONCE IART Last administered on 06/29/18at 14:15; Start 06/29/18 at 14:15; Stop 06/29/18 at 14:16; Status DC Heparin Sodium/ Sodium Chloride (HEPARIN for ARTERIAL LINE FLUSH) 1,000 unit 1X ONCE IART Last administered on 06/29/18at 14:15; Start 06/29/18 at 14:15; Stop 06/29/18 at 14:16; Status DC Heparin Sodium (Porcine) (Heparin Sodium) 4,000 unit 1X ONCE IV Last administered on 06/29/18at 14:15; Start 06/29/18 at 14:15; Stop 06/29/18 at 14:16; Status DC Iodixanol (Visipaque 320) 100 ml 1X ONCE IART Last administered on 06/29/18at 14:30; Start 06/29/18 at 14:30; Stop 06/29/18 at 14:31; Status DC Heparin Sodium/ Sodium Chloride 500 ml @ As Directed STK-MED ONCE .ROUTE ; Start 06/29/18 at 14:35; Stop 06/29/18 at 14:36; Status DC Nitroglycerin (Nitroglycerin) 200 mcg 1X ONCE IART Last administered on 06/14 09/01at 15:30; Start 06/29/18 at 15:30; Stop 06/29/18 at 15:31; Status DC Iodixanol (Visipaque 320) 100 ml STK-MED ONCE .ROUTE ; Start 06/29/18 at 15:51; Stop 06/29/18 at 15:52; Status DC Iodixanol (Visipaque 320) 100 ml STK-MED ONCE .ROUTE ; Start 06/29/18 at 16:52; Stop 06/29/18 at 16:53; Status DC Aspirin (Aspirin) 300 mg 1X ONCE [facility] Last administered on 06/29/18at 18:18; Sta rt 06/29/18 at 17:30; Stop 06/29/18 at 17:31; Status DC Clopidogrel Bisulfate (Plavix) 300 mg 1X ONCE PO Last administered on 06/29/18at 18:18; Start 06/29/18 at 17:30; Stop 06/29/18 at 17:31; Status DC Fentanyl Citrate 30 ml @ 0 mls/hr CONT PRN IV SEE PROTOCOL Last administered on 07/01/18at 04:49; Start 06/29/18 at 17:30; Stop 07/02/18 at 15:47; Status DC Fentanyl Citrate (Fentanyl 2ml Vial) 25 mcg PRN Q1HR PRN IV SEE COMMENTS Last administered on 07/01/18at 14:48; Start 06/29/18 at 17:30 Fentanyl Citrate (Fentanyl 2ml Vial) 50 mcg PRN Q1HR PRN IV SEE COMMENTS; Start 06/29/18 at 17:30 Chlorhexidine Gluconate (Peridex) 15 ml BID MM Last administered on 07/02/18at 21:47; Start 06/29/18 at 21:00; Stop 07/03/18 at 10:29; Status DC Morphine Sulfate (Morphine Sulfate) 2 mg PRN Q1HR PRN IV SEE COMMENTS.; Start 06/29/18 at 17:30 Morphine Sulfate (Morphine Sulfate) 4 mg PRN Q1HR PRN IV SEE COMMENTS.; Start 06/29/18 at 17:30 Midazolam HCl 100 ml @ 0 mls/hr CONT PRN IV SEE PROTOCOL Last administered on 06/30/18at 12:04; Start 06/29/18 at 17:30; Stop 07/04/18 at 08:07; Status DC Vecuronium Milroy (Norcuron Bolus) 6 mg PRN Q2HRS PRN IV ANXIETY / AGITATION; Start 06/29/18 at 17:30; Stop 07/02/18 at 15:47; Status DC Heparin Sodium (Porcine) 5000 unit/Sodium Chloride 505 ml @ 505 mls/hr 1X ONCE IRR Last administered on 06/29/18at 20:34; Start 06/29/18 at 19:30; Stop 06/29/18 at 20:30; Status DC Iohexol (Omnipaque 300 Mg/ml) 100 ml STK-MED ONCE .ROUTE ; Start 06/29/18 at 18:16; Stop 06/29/18 at 19:17; Status DC Cellulose (Surgicel Fibrillar 1x2) 1 each STK-MED ONCE .ROUTE ; Start 06/29/18 at 19:17; Stop 06/29/18 at 19:18; Status DC Rocuronium Milroy (Zemuron) 50 mg STK-MED ONCE .ROUTE ; Start 06/29/18 at 19:42; Stop 06/29/18 at 19:43; Status DC Vancomycin HCl 1 gm/Sodium Chloride 250 ml @ 250 mls/hr 1X ONCE IV Last administered on 06/29/18at 20:34; Start 06/29/18 at 20:45; Stop 06/29/18 at 21:44; Status DC Vancomycin HCl 250 ml @ 250 mls/hr 1X ONCE IV ; Start 06/29/18 at 20:45; Stop 06/29/18 at 21:44; Status UNV Hydrocortisone Sodium Succinate (Solu-CORTEF) 100 mg STK-MED ONCE .ROUTE ; Start 06/29/18 at 20:50; Stop 06/29/18 at 20:51; Status DC Heparin Sodium (Porcine) (Heparin Sodium) 10,000 unit STK-MED ONCE .ROUTE ; Start 06/29/18 at 21:01; Stop 06/29/18 at 21:02; Status DC Phenylephrine HCl (PHENYLEPHRINE in 0.9% NACL PF) 1 mg STK-MED ONCE IV ; Start 06/29/18 at 21:35; Stop 06/29/18 at 21:36; Status DC Sevoflurane (Ultane) 90 ml STK-MED ONCE IH ; Start 06/29/18 at 21:36; Stop 06/29/18 at 21:37; Status DC Protamine Sulfate (Protamine) 50 mg STK-MED ONCE IV ; Start 06/29/18 at 21:45; Stop 06/29/18 at 21:46; Status DC Cellulose (Surgicel Fibrillar 1x2) 1 each STK-MED ONCE TP Last administered on 06/29/18at 21:52; Start 06/29/18 at 21:52; Stop 06/29/18 at 21:58; Status DC Sodium Chloride 500 ml @ 500 mls/hr 1X ONCE IV Last administered on 06/29/18at 23:47; Start 06/29/18 at 23:00; Stop 06/29/18 at 23:59; Status DC Sodium Chloride 500 ml @ 500 mls/hr 1X ONCE IV Last administered on 06/30/18at 00:27; Start 06/30/18 at 00:00; Stop 06/30/18 at 00:59; Status DC Norepinephrine Bitartrate 250 ml @ 1.875 mls/ hr CONT PRN IV SEE I/O RECORD Last administered on 06/30/18at 00:26; Start 06/29/18 at 23:45; Stop 07/04/18 at 08:07; Status DC Rocuronium [place] (Zemuron) 50 mg STK-MED ONCE .ROUTE ; Start 06/29/18 at 12:00; Stop 06/30/18 at 08:09; Status DC Aspirin (Aspirin) 300 mg DAILY VA Last administered on 07/02/18at 08:47; Start 06/30/18 at 10:00; Stop 07/02/18 at 15:43; Status DC Potassium Chloride (KCl Oral Soln) 40 meq DAILY PEG Last administered on 07/02/18at 08:43; Start 06/30/18 at 10:00; Stop 07/02/18 at 15:43; Status DC Cefazolin Sodium/ Dextrose (Ancef 2gm Premix) 2 gm STK-MED ONCE IV ; Start 06/29/18 at 11:00; Stop 06/30/18 at 12:24; Status DC Hydralazine HCl (Apresoline Inj) 10 mg PRN Q6HRS PRN IVP ELEVATED BP, SEE COMMENTS; Start 06/30/18 at 14:00; Status UNV Albumin Human 100 ml @ 100 mls/hr 1X ONCE IV Last administered on 06/30/18at 19:39; Start 06/30/18 at 19:15; Stop 06/30/18 at 20:14; Status DC Phenylephrine HCl (PHENYLEPHRINE in 0.9% NACL PF) 0.1 mg 1X ONCE IV Last administered on 06/30/18at 19:15; Start 06/30/18 at 19:15; Stop 06/30/18 at 19:16; Status DC Aspirin (Ecotrin) 81 mg PRN DAILY PRN PO WHEN PO TOLERATED; Start 07/01/18 at 10:45; Stop 07/02/18 at 15:43; Status DC Fentanyl Citrate (Fentanyl 2ml Vial) 25 mcg PRN Q1HR PRN IV SEE COMMENTS; Start 07/01/18 at 13:30; Stop 07/02/18 at 09:04; Status DC Fentanyl Citrate (Fentanyl 2ml Vial) 50 mcg PRN Q1HR PRN IV SEE COMMENTS; S tart 07/01/18 at 13:30; Stop 07/02/18 at 09:04; Status DC Chlorhexidine Gluconate (Peridex) 15 ml BID MM ; Start 07/01/18 at 21:00; Status Cancel Dexmedetomidine HCl 200 mcg/ Sodium Chloride 50 ml @ 0 mls/hr CONT PRN IV PER PROTOCOL Last administered on 07/02/18at 01:52; Start 07/01/18 at 13:30; Stop 07/04/18 at 08:07; Status DC Sodium Chloride 500 ml @ 500 mls/hr 1X PRN PRN IV SEE COMMENTS; Start 07/01/18 at 13:30 Atropine Sulfate (ATROPINE 0.5mg SYRINGE) 0.5 mg PRN Q5MIN PRN IV SEE COMMENTS; Start 07/01/18 at 13:30 Furosemide (Lasix) 40 mg DAILY IV Last administered on 07/05/18at 08:44; Start 07/02/18 at 09:00 Aspirin (Ecotrin) 81 mg DAILY08 PO Last administered on 07/04/18at 09:20; Start 07/03/18 at 08:00 Furosemide (Lasix) 40 mg 1X ONCE IVP Last administered on 07/02/18at 21:30; Start 07/02/18 at 21:00; Stop 07/02/18 at 21:01; Status DC Methylprednisolone Sodium Succinate (SOLU-Medrol 40MG VIAL) 40 mg Q12HR IV Last administered on 07/05/18at 08:44; Start 07/04/18 at 21:00 Azithromycin (Zithromax) 500 mg 1X ONCE PO Last administered on 07/04/18at 09:21; Start 07/04/18 at 09:00; Stop 07/04/18 at 09:01; Status DC Azithromycin (Zithromax) 250 mg DAILY PO ; Start 07/05/18 at 09:00 Insulin Glargine (Lantus) 10 units QHS SQ Last administered on 07/04/18at 21:05; Start 07/04/18 at 21:00 Insulin Human Lispro (HumaLOG) 3 units TIDAC SQ Last administered on 07/04/18at 17:45; Start 07/04/18 at 11:30 Insulin Human Lispro (HumaLOG) 0-7 UNITS TIDWMEALS SQ Last administered on 07/04/18at 17:44; Start 07/04/18 at 12:00 Dextrose (Dextrose 50%-Water Syringe) 12.5 gm PRN Q15MIN PRN IV SEE COMMENTS; Start 07/04/18 at 08:30; Stop 07/04/18 at 13:13; Status DC Heparin Sodium/ Dextrose 500 ml @ 10 mls/hr CONT PRN IV SEE I/O RECORD; Start 07/04/18 at 09:45; Stop 07/04/18 at 11:06; Status DC Enoxaparin Sodium (Lovenox 40mg Syringe) 40 mg Q24H SQ ; Start 07/05/18 at 09:00 Lorazepam (Ativan) 1 mg PRN Q8HRS PRN IV ANXIETY / AGITATION Last administered on 07/05/18at 08:44; Start 07/05/18 at 08:00 Acetaminophen/ Hydrocodone Bitart (Lortab 5/325) 1 tab PRN Q4HRS PRN PO MODERATE - SEVERE PAIN; Start 07/05/18 at 09:15 Active Scripts Active Clindamycin Hcl 300 Mg Capsule 300 Mg PO QID 7 Days Lasix (Furosemide) 40 Mg Tablet 40 Mg PO BID 14 Days Aldactone (Spironolactone) 25 Mg Tablet 25 Mg PO DAILY MDD 1 Lisinopril 5 Mg Tablet 2.5 Mg PO DAILY MDD 1 Proair Hfa (Albuterol Sulfate) 8.5 Gm Hfa.aer.ad 2.5 Mg NEB PRN Q4HRS PRN MDD 1 Reported Aspir-Low (Aspirin) 81 Mg Tablet.dr 1 Tab PO DAILY Triamterene-Hctz 37.5-25 Mg Cp (Triamterene/Hydrochlorothiazid) 1 Each Capsule 1 Cap PO DAILY Synthroid (Levothyroxine Sodium) 88 Mcg Tablet 1 Tab PO DAILY Latanoprost 2.5 Ml Drops 1 Drop EACHEYE QHS Vitals/I & O Vital Sign - Last 24 Hours 07/04/18 07/04/18 07/04/18 07/04/18 15:13 15:35 18:23 19:39 Pulse 122 109 B/P (MAP) 143/83 (103) 121/72 (88) Pulse Ox 95 91 O2 Delivery Nasal Cannula Nasal Cannula Nasal Cannula Nasal Cannula O2 Flow Rate 3.0 2.0 2.0 3.0 07/04/18 07/04/18 07/05/18 07/05/18 20:03 22:54 00:06 02:57 Temp 97.6 98.1 97.6 98.1 Pulse 106 110 Resp 20 20 B/P (MAP) 146/92 (110) 126/75 (92) Pulse Ox 92 89 92 82 O2 Delivery Nasal Cannula Nasal Cannula Nasal Cannula Nasal Cannula O2 Flow Rate 3.0 3.0 3.0 4.0 07/05/18 07/05/18 07/05/18 07/05/18 03:53 07:35 07:54 08:02 Temp 98.0 98.0 Pulse 114 Resp 18 B/P (MAP) 127/79 (95) Pulse Ox 88 91 95 O2 Delivery Nasal Cannula Nasal Cannula Nasal Cannula Nasal Cannula O2 Flow Rate 5.0 4.0 3.0 3.0 07/05/18 11:56 Pulse Ox 95 O2 Delivery Nasal Cannula O2 Flow Rate 3.0 Intake and Output 07/04/18 07/04/18 07/05/18 14:59 22:59 06:59 Intake Total 440 ml 400 ml 0 ml Output Total 775 ml Balance 440 ml -375 ml 0 ml HUGH ROSE MD Jul 05, 2018 12:10
--- NOTE | 2018-07-05 12:25 | PDOC ---
EKTA NOLASCO APRN 07/05/18 1225: CARDIO Progress Notes Date and Time Date of Service 07/05/18 Time of Evaluation 1105 Subjective Subjective: No Chest Pain, No shortness of breath, No Palpitations, No Dizziness Vitals Vitals Vital Signs Date Time Temp Pulse Resp B/P (MAP) Pulse Ox O2 Delivery O2 Flow Rate FiO2 07/05/18 11:56 95 Nasal Cannula 3.0 07/05/18 07:35 98.0 114 18 127/79 (95) 98.0 Weight Weight [ ] Input and Output Intake and Output Intake and Output 07/05/18 06:59 Intake Total 840 ml Output Total 775 ml Balance 65 ml Intake Oral 840 ml Output Urine Total 775 ml # Bowel Movements 1 Laboratory Labs Laboratory Tests Test 07/04/18 12:24 07/04/18 16:54 07/04/18 20:50 07/05/18 06:30 Glucose (Fingerstick) 254 mg/dL (70-99) 211 mg/dL (70-99) 137 mg/dL (70-99) 197 mg/dL (70-99) Test 07/05/18 08:12 07/05/18 11:38 Glucose (Fingerstick) 147 mg/dL (70-99) 134 mg/dL (70-99) Physical Exam HEENT: Neck Supple W Full Motion Chest: Symmetric LUNGS: Other (dimiished bases) Heart: S1S2, RRR (SR) Abdomen: Soft N/T Extremities: Other (1+ bilateral LE edmea. ) Neurology: alert, oriented, follow commands Assessment Assessment 1. 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 ICM LVEF 20-25% 3. CAD s/p PCI to LM/LAD 4. Severe PAD; s/p aorto/iliac stents and LCFA, SFA, and external iliac endarterectomy with patch. Recommendations D/c milrinone Monitor UOP Daily IV lasix Secondary prevention; ASA, Plavix, statin, AECi Add Metoprolol. Supportive care Re-evaluate LVEF in 3 months with outpatient echo. ALYSSIA PASCUAL MD 07/06/18 1139: CARDIO Progress Notes Plan Plan Late entry for 07/05/2018 Pt. seen and examined. Agree with above OFFSET SECOND PRESS OPERATOR note. Continue diuresis. EKTA NOLASCO APRN Jul 05, 2018 12:25 ALYSSIA PASCUAL MD Jul 06, 2018 11:39
--- NOTE | 2018-07-05 14:54 | NUR ---
SS following up with discharge planning. Pt screened at [facility], ; fax [phone], for half-way unit. Per RN pt is currently on IV solumedrol and drip for heart. Not stable for discharge at this time. SS will continue to follow for discharge planning.
[2018-07-05 15:34] VITALS: BP 126/79
--- NOTE | 2018-07-05 15:35 | PDOC ---
PULMONARY PROGRESS NOTES Subjective extubated 07/02, not more soa this am had some wheezing Vitals Vital Signs Date Time Temp Pulse Resp B/P (MAP) Pulse Ox O2 Delivery O2 Flow Rate FiO2 07/05/18 11:56 95 Nasal Cannula 3.0 07/05/18 11:00 98.0 106 18 118/84 (95) 98.0 ROS: No Nausea, No Chest Pain, No Abdominal Pain, No Increase Cough General: Alert, No acute distress HEENT: Other (nc at perrl nose throat clear neck, no lad no thyromegaly) Lungs: Crackles, Other (decrease bs) Cardiovascular: S1, S2 Abdomen: Soft, Non-tender Neuro Exam: Alert Extremities: Other (+ edema) Skin: Warm Labs Laboratory Tests Test 07/03/18 17:34 07/03/18 21:26 07/04/18 06:20 07/04/18 08:27 Glucose (Fingerstick) 246 mg/dL (70-99) 217 mg/dL (70-99) 198 mg/dL (70-99) White Blood Count 7.1 x10^3/uL (4.0-11.0) Red Blood Count 3.90 x10^6/uL (3.50-5.40) Hemoglobin 11.2 g/dL (12.0-15.5) Hematocrit 34.7 % (36.0-47.0) Mean Corpuscular Volume 89 fL (79-100) Mean Corpuscular Hemoglobin 29 pg (25-35) Mean Corpuscular Hemoglobin Concent 32 g/dL (31-37) Red Cell Distribution Width 18.3 % (11.5-14.5) Platelet Count 238 x10^3/uL (140-400) Neutrophils (%) (Auto) 89 % (31-73) Lymphocytes (%) (Auto) 5 % (24-48) Monocytes (%) (Auto) 5 % (0-9) Eosinophils (%) (Auto) 0 % (0-3) Basophils (%) (Auto) 0 % (0-3) Neutrophils # (Auto) 6.3 x10^3uL (1.8-7.7) Lymphocytes # (Auto) 0.4 x10^3/uL (1.0-4.8) Monocytes # (Auto) 0.4 x10^3/uL (0.0-1.1) Eosinophils # (Auto) 0.0 x10^3/uL (0.0-0.7) Basophils # (Auto) 0.0 x10^3/uL (0.0-0.2) Sodium Level 133 mmol/L (136-145) Potassium Level 4.5 mmol/L (3.5-5.1) Chloride Level 97 mmol/L (98-107) Carbon Dioxide Level 32 mmol/L (21-32) Anion Gap 4 (6-14) Blood Urea Nitrogen 18 mg/dL (7-20) Creatinine 0.9 mg/dL (0.6-1.0) Estimated GFR (Cockcroft-Gault) 61.5 Glucose Level 201 mg/dL (70-99) Calcium Level 8.6 mg/dL (8.5-10.1) Test 07/04/18 12:24 07/04/18 16:54 07/04/18 20:50 07/05/18 06:30 Glucose (Fingerstick) 254 mg/dL (70-99) 211 mg/dL (70-99) 137 mg/dL (70-99) 197 mg/dL (70-99) Test 07/05/18 08:12 07/05/18 11:38 Glucose (Fingerstick) 147 mg/dL (70-99) 134 mg/dL (70-99) Laboratory Tests Test 07/04/18 16:54 07/04/18 20:50 07/05/18 06:30 07/05/18 08:12 Glucose (Fingerstick) 211 mg/dL (70-99) 137 mg/dL (70-99) 197 mg/dL (70-99) 147 mg/dL (70-99) Test 07/05/18 11:38 Glucose (Fingerstick) 134 mg/dL (70-99) Medications Active Scripts Medications Dose Route/Sig Max Daily Dose Days Date Category Clindamycin Hcl 300 Mg Capsule 300 Mg PO QID 7 06/24/18 Rx Lasix (Furosemide) 40 Mg Tablet 40 Mg PO BID 14 06/24/18 Rx Aldactone (Spironolactone) 25 Mg Tablet 25 Mg PO DAILY MDD 1 06/24/18 Rx Lisinopril 5 Mg Tablet 2.5 Mg PO DAILY MDD 1 06/24/18 Rx Proair Hfa (Albuterol Sulfate) 8.5 Gm Hfa.aer.ad 2.5 Mg NEB PRN Q4HRS PRN MDD 1 06/24/18 Rx Aspir-Low (Aspirin) 81 Mg Tablet.dr 1 Tab PO DAILY 06/18/18 Reported Triamterene-Hctz 37.5-25 Mg Cp (Triamterene/Hydrochlorothiazid) 1 Each Capsule 1 Cap PO DAILY 06/18/18 Reported Synthroid (Levothyroxine Sodium) 88 Mcg Tablet 1 Tab PO DAILY 06/18/18 Reported Latanoprost 2.5 Ml Drops 1 Drop EACHEYE QHS 06/18/18 Reported Impression . 1. Acute hypoxic respiratory failure secondary to recent cardiac and vascular intervention and cardiogenic shock. 2. 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 PAD s/p aorto-iliac stent, Left femoral endarterectomy 4. Underlying chronic obstructive pulmonary disease with [id number] tobacco history. 5. Cardiogenic shock resolved with congestive heart failure. 6. History of severe cardiomyopathy and severe diastolic dysfunction and secondary pulmonary hypertension. 7. Bilateral effusion 8. Atelectasis Plan . REVIEWED THE CT CHEST LU EFFUSION WITH ATELECTASIS WILL DIURESE FOR NOW TREAT ACUTE BRONCHITIS STEROIDS FOLLOW OTHER CONSULTANTS INPUT BELEN MALDONADO MD Jul 05, 2018 15:35
--- NOTE | 2018-07-05 16:00 | RAD ---
CHEST PA LATERAL History: respiratory failure/ short of breath, weak Comparison: 07/03/2018 portable chest x-ray exam. Findings: There is a right internal jugular catheter terminating at the apical level at the right third rib posterior shadow region. The cardiomediastinal silhouette is within the upper limits of normal. Pulmonary vasculature congestion is noted. Small bilateral pleural effusions are present greater on the right. Adjacent atelectasis or infiltrate noted. Improved bibasilar pulmonary aeration noted. No pneumothorax. No acute bony process. IMPRESSION: Right internal jugular catheter terminates overlying the right third rib level at the lung apex. No pneumothorax. Decreased bibasilar pleural effusions and bibasilar atelectasis or infiltrate. Electronically signed by: Gautam Leyva MD (07/05/2018 3:57 PM) [facility]
--- NOTE | 2018-07-05 16:06 | RAD ---
Examination: CT CHEST WO CONTRAST History: evaluate for effusion/consolidation Comparison/Correlation: None Findings: Axial images of the chest were obtained without contrast. Sagittal and coronal reformatted images provided. Right internal jugular catheter terminates approximately 0.6 cm within the infiltrative vein. It is at the superior right apical level. Associated soft tissue gas at the right base of the neck inferiorly corresponding to line placement noted. Moderate-sized right pleural effusion is present. Small moderate-sized left pleural effusion noted. Right lower lobe basilar atelectatic consolidation noted. Minimal left lower lobe basilar atelectatic consolidation noted. Mild emphysematous bullous involvement of the lung apices noted. Mild pulmonary vasculature congestion noted. Significant atherosclerotic calcific involvement of the coronary arteries evident. Stent material involving the left main coronary artery and left anterior descending coronary arterial origin appears be present. Correlate with intervention. No enlarged thoracic lymph nodes. Small amount of upper abdominal ascites is noted. Anasarca is evident. Calcific involvement of the abdominal aorta is evident. Impression: Right internal jugular catheter terminates slightly within the right internal jugular vein. Repositioning should be considered. Bilateral pleural effusions greater in size in the right noted. Bibasilar lower lobe atelectatic consolidation is also greater on the right. Mild pulmonary vasculature congestion. PQRS Compliance Statement: One or more of the following individualized dose reduction techniques were utilized for this examination: 1. Automated exposure control 2. Adjustment of the mA and/or kV according to patient size 3. Use of iterative reconstruction technique Electronically signed by: Gautam Leyva MD (07/05/2018 4:03 PM) [facility]
--- NOTE | 2018-07-05 16:30 | NUR ---
RN NOTE dressing changed on left and right groin. Dr. Cervantes notified of patients IJ leaking and CT Chest stated it needed to be advanced. order received to d/c patient education provided.
[2018-07-05] MEDS: ACETAMINOPHEN 325 MG TABLET. PO PRN (17:32)
[2018-07-05] MEDS: LACTOBACILLUS RHAMNOSUS GG 1 CAPSULE. PO SCH ×2 (17:32→21:11)
[2018-07-05] MEDS: CLOPIDOGREL BISULFATE 75 MG TABLET PO SCH (17:32)
[2018-07-05] MEDS: SPIRONOLACTONE 25 MG TABLET PO SCH (17:32)
[2018-07-05] MEDS: ASPIRIN ENTERIC COATED 81 MG TABLET.DR. PO SCH (17:32)
[2018-07-05] MEDS: LEVOTHYROXINE 88 MCG TABLET PO SCH (17:32)
[2018-07-05] MEDS: POTASSIUM CHLORIDE 20 MEQ TABLET.ER. PO SCH (17:32)
[2018-07-05] MEDS: AZITHROMYCIN 250 MG TABLET. PO SCH (17:33)
[2018-07-05] MEDS: METOPROLOL TART IMMED RELEASE 25 MG TABLET. PO SCH (17:33)
[2018-07-05] MEDS: LISINOPRIL 5 MG TABLET. PO SCH (17:33)
[2018-07-05] MEDS ORDERED: FUROSEMIDE 40 MG/4 ML VIAL. IVP ONE (18:00)
[2018-07-05 19:50] VITALS: BP 107/66
[2018-07-05] MEDS: LATANOPROST 0.005% OPHTH SOLUTION 2.5ML BOTTLE. OU SCH (21:11)
[2018-07-05] MEDS: ATORVASTATIN CALCIUM 40 MG TABLET. PO SCH (21:11)
[2018-07-05] MEDS: INSULIN GLARGINE 300 UNITS/3 ML INSULN.PEN. SQ SCH (21:21)
[2018-07-05 22:40] VITALS: BP 116/77
[2018-07-06 03:30] VITALS: BP 118/78
[2018-07-06] MEDS: IPRATRPIUM/ALBUTEROL 0.5/2.5MG 3 ML NEBU. NEB SCH ×4 (04:00→15:36)
[2018-07-06] MEDS: METOPROLOL TART IMMED RELEASE 25 MG TABLET. PO SCH ×3 (06:25→12:00)
[2018-07-06 07:00] VITALS: BP 117/80
--- NOTE | 2018-07-06 08:31 | SNU/HH DC ---
DISCHARGE ORDERS DISCHARGE INFORMATION: DISCHARGE DATE: Jul 06, 2018 FINAL DIAGNOSIS Problems Medical Problems: (1) Congestive heart failure Status: Acute CONDITION ON DISCHARGE: Stable CODE STATUS: Code Status: Full SHELTER: SNF STAY <30 DAYS: Yes HOSPICE: HOSPICE: No HOSPICE EVAL & TREAT: No LTAC: ADMIT TO LTAC: No POST DISCHARGE ORDERS: ACTIVITY ORDERS: Activity as tolerated WEIGHT BEARING STATUS: As tolerated DIET AFTER DISCHARGE: Cardiac CHECKS AFTER DISCHARGE: CHECKS AFTER DISCHARGE: Check blood press - daily, Check blood sugar, ac/hs FOLLOW-UP: PHYSICIAN FOLLOW-UP: cards upon snu dc TREATMENT/EQUIPMENT ORDERS: ADAPTIVE EQUIPMENT NEEDED: Front wheeled walker RESPIRATORY EQUIPMENT NEEDED: Oxygen Physical Therapy For: Evalulation/Treatment Occupational Therapy For: Evaluation/Treatment DISCHARGE MEDICATIONS: Home Meds Active Scripts Clindamycin Hcl (CLINDAMYCIN HCL) 300 Mg Capsule, 300 MG PO QID for cellulitis for 7 Days, #28 CAP Prov:JULIUS ENGEL MD 06/24/18 Furosemide (LASIX) 40 Mg Tablet, 40 MG PO BID for leg edema for 14 Days, #28 TAB Prov:JULIUS ENGEL MD 06/24/18 Spironolactone (ALDACTONE) 25 Mg Tablet, 25 MG PO DAILY for chf, htn MDD 1, #30 TAB Prov:JULIUS ENGEL MD 06/24/18 Lisinopril (LISINOPRIL) 5 Mg Tablet, 2.5 MG PO DAILY for htn MDD 1, #30 TAB Prov:JULIUS ENGEL MD 06/24/18 Albuterol Sulfate (Proair Hfa) 8.5 Gm Hfa.aer.ad, 2.5 MG NEB PRN Q4HRS PRN for SHORTNESS OF BREATH MDD 1, #30 INHALER Prov:JULIUS ENGEL MD 06/24/18 Reported Medications Aspirin (ASPIR-LOW) 81 Mg Tablet.dr, 1 TAB PO DAILY for heart, #30 TAB 3 Refills 06/18/18 Triamterene/Hydrochlorothiazid (TRIAMTERENE-HCTZ 37.5-25 MG CP) 1 Each Capsule, 1 CAP PO DAILY for CHF, #30 CAP 5 Refills 06/18/18 Levothyroxine Sodium (SYNTHROID) 88 Mcg Tablet, 1 TAB PO DAILY for thyroid, #30 TAB 5 Refills 06/18/18 Latanoprost (LATANOPROST) 2.5 Ml Drops, 1 DROP EACHEYE QHS for eye care, #7.5 ML 3 Refills 06/18/18 JULIUS ENGEL MD Jul 06, 2018 08:31
[2018-07-06] MEDS: CLOPIDOGREL BISULFATE 75 MG TABLET PO SCH (08:42)
[2018-07-06] MEDS: SPIRONOLACTONE 25 MG TABLET PO SCH (08:43)
[2018-07-06] MEDS: LISINOPRIL 5 MG TABLET. PO SCH (08:43)
[2018-07-06] MEDS: LACTOBACILLUS RHAMNOSUS GG 1 CAPSULE. PO SCH (08:43)
[2018-07-06] MEDS: POTASSIUM CHLORIDE 20 MEQ TABLET.ER. PO SCH (08:43)
[2018-07-06] MEDS: ASPIRIN ENTERIC COATED 81 MG TABLET.DR. PO SCH (08:44)
[2018-07-06] MEDS: FUROSEMIDE 40 MG/4 ML VIAL. IV SCH (08:44)
[2018-07-06] MEDS: LEVOTHYROXINE 88 MCG TABLET PO SCH (08:44)
[2018-07-06] MEDS: AZITHROMYCIN 250 MG TABLET. PO SCH (08:44)
[2018-07-06] MEDS: INSULIN LISPRO 300 UNITS/3 ML INSULN.PEN. SQ SCH ×6 (08:45→17:55)
[2018-07-06] MEDS: methylPREDNISolone SOD SUCC PF 40 MG/ML VIAL. IV SCH (08:45)
[2018-07-06] MEDS: ENOXAPARIN 40 MG/0.4 ML SYRINGE. SQ SCH (09:00)
--- NOTE | 2018-07-06 09:07 | NUR ---
SS following up with discharge planning. SS received notification that [facility] is on a staff shortage with one FENCE SETTER for three units and cannot accept new pt's this week. SS met with pt to discuss other options for shelter unit. Pt stated that she has a friend that lives at [address] [place] [address] and was okay with [facility]. SS phoned and faxed referral to [facility], ; fax [phone]. [facility] reported to SS that they would submit for authorization with [employer] and would notify SS once authorization is received. Pt's RN notified.
--- NOTE | 2018-07-06 10:34 | NUR ---
SS following up with discharge planning. SS phoned and faxed discharge orders to [facility], ; fax [phone]. SS awaiting insurance authorization from [place] at this time. [place] [facility] will arrange transportation once authorization has been received.
--- NOTE | 2018-07-06 10:38 | PDOC3 ---
Discharge Summary Visit Information Date of Admission: Jun 18, 2018 Date of Discharge: Jul 06, 2018 Admitting Diagnosis Comment: Triple vessel Disease by [facility] 06/22/18 Severe ischemic CM with EF 30% and severe left main dz Severe PAD with 80% diffuse infrarenal stenosis, 95% stenosis at aortic bifurcation. Acute on chronic CHF AECOPD/pulmonary HTN LE edema more to RLE with small superficial right posterior ulcer. PAD, poor pulses - OP arteriogram Hypothyroidism TSH 5 with T4 at goal on synthroid constipated - bowel regimen Hypokalemia . corrected Morbid obesity with likely GÓMEZ Severe onychomycoses DM2 - A1c 7.9 rt Sided pleural effusion Final Diagnosis Problems Medical Problems: (1) Congestive heart failure Status: Acute Brief Hospital Course Allergies Allergies Coded Allergies Type Severity Reaction Last Updated Verified Penicillins Allergy Intermediate 06/29/18 Yes Vital Signs Vital Signs Date Time Temp Pulse Resp B/P (MAP) Pulse Ox O2 Delivery O2 Flow Rate FiO2 07/06/18 08:43 82 117/80 07/06/18 08:00 100 Nasal Cannula 3.0 07/06/18 07:00 97.3 18 97.3 Lab Results Laboratory Tests Test 07/04/18 12:24 07/04/18 16:54 07/04/18 20:50 07/05/18 06:30 Glucose (Fingerstick) 254 mg/dL (70-99) 211 mg/dL (70-99) 137 mg/dL (70-99) 197 mg/dL (70-99) Test 07/05/18 08:12 07/05/18 11:38 07/05/18 17:15 07/05/18 20:58 Glucose (Fingerstick) 147 mg/dL (70-99) 134 mg/dL (70-99) 152 mg/dL (70-99) 126 mg/dL (70-99) Test 07/06/18 07:38 Glucose (Fingerstick) 155 mg/dL (70-99) Laboratory Tests Test 07/05/18 11:38 07/05/18 17:15 07/05/18 20:58 07/06/18 07:38 Glucose (Fingerstick) 134 mg/dL (70-99) 152 mg/dL (70-99) 126 mg/dL (70-99) 155 mg/dL (70-99) Brief Hospital Course Ms. Hutton is a 73 old obese white female who came from home and takes care of her 90-year-old sick mother. But came in because of SOA leg edema and found to have severe ischemic cardiomyopathy with EF 30% and CHF and LHC which showed severe CAD - three-vessel disease. But high risk for CABG hence underwent staged PCI after clearance from vascular surgery because she also has severe infrarenal stenosis, and other signif vessel dse, bad PAD in the bilateral lower extremity -some of which would be the access for her C. In any case vascular surgery and cardiology was able to fix that and eventually reperfuse the heart. She will follow-up with cardiology and vascular surgery as outpatient upon discharge from [facility]. She finally agreed to SNU as she realizes she is too weak to participate and take care of her 90-year-old mother. She has some COPD element too, pulmonary hypertension. Leg edema are much better. Status post IV Clinda. Off abx now We'll go home with Lasix 40 twice a day. She had some right greater than left pleural effusion but not needing thoracentesis just IV Lasix. - co managed with pulmo DispO; [facility] FULL CODE Rx on chart Pt seen and examined dc 32 mins Discharge Information Condition at Discharge: Improved, Stable Disposition/Orders: Other (snu) Scheduled Aspirin (Aspir-Low) 81 Mg Tablet., 1 TAB PO DAILY for heart, #30 Ref 3 (Reported) Entered as Reported by: RJ CONCEPCION on 06/18/181826 Last Action: Continued on 06/18/181835 by RJ CONCEPCION Clindamycin Hcl (Clindamycin Hcl) 300 Mg Capsule, 300 MG PO QID for cellulitis for 7 Days, #28 Prescribed by: JULIUS ENGEL on 06/24/18918 Furosemide (Lasix) 40 Mg Tablet, 40 MG PO BID for leg edema for 14 Days, #28 Prescribed by: JULIUS ENGEL on 06/24/18918 Latanoprost (Latanoprost) 2.5 Ml Drops, 1 DROP EACHEYE QHS for eye care, #7.5 Ref 3 (Reported) Entered as Reported by: RJ CONCEPCION on 06/18/181826 Last Action: Converted on 06/18/181835 by RJ CONCEPCION Levothyroxine Sodium (Synthroid) 88 Mcg Tablet, 1 TAB PO DAILY for thyroid, #30 Ref 5 (Reported) Entered as Reported by: RJ CONCEPCION on 06/18/181826 Last Action: Continued on 06/18/181835 by RJ CONCEPCION Lisinopril (Lisinopril) 5 Mg Tablet, 2.5 MG PO DAILY for htn MDD 1, #30 Prescribed by: JULIUS ENGEL on 06/24/18918 Spironolactone (Aldactone) 25 Mg Tablet, 25 MG PO DAILY for chf, htn MDD 1, #30 Prescribed by: JULIUS ENGEL on 06/24/18918 Triamterene/Hydrochlorothiazid (Triamterene-Hctz 37.5-25 Mg Cp) 1 Each Capsule, 1 CAP PO DAILY for CHF, #30 Ref 5 (Reported) Entered as Reported by: RJ CONCEPCION on 06/18/181826 Last Action: New Order on 06/18/181826 by RJ CONCEPCION Scheduled PRN Albuterol Sulfate (Proair Hfa) 8.5 Gm Hfa.aer.ad, 2.5 MG NEB PRN Q4HRS PRN for SHORTNESS OF BREATH MDD 1, #30 Prescribed by: JULIUS ENGEL on 06/24/18918 JULIUS ENGEL MD Jul 06, 2018 10:38
--- NOTE | 2018-07-06 10:43 | PDOC ---
PROGRESS NOTES Subjective Subjective "I am so cold! Can't seem to get warmed up. My stomach feels like a band across it. I ate breakfast just fine. Who knows..." States her legs are feeling better today. Objective Objective Vascular Surgery - POD#7 Bilateral proximal common iliac kissing stents and a ortic stent placement, angioplasty with stent of the left main and LAD; Emergent left common femoral, external iliac, superficial femoral artery endarterectomy with bovine patch angioplasty after heart cath. General: Examined at bedside with patient sitting up in the chair. Awake, alert and oriented. States her legs are feeling much better and feels she is just experiencing weakness from bedrest while in ICU. CV: Vital signs stable. NSR with PAC's. Pulm: Remains on low supplemental oxygen therapy. Unlabored. No cough. Right leg: Calf soft. Doppled dorsalis pedal pulse. Foot very cold but pink. No motor or sensory deficits with full ROM. Right groin dressing with faint hue of serous drainage. RN has not changed yet this morning. Left leg: Previous erythema to anterior calf faded significantly. Calf soft. No motor or sensory deficits. Full ROM. Doppled DP pulse. Foot cold but pink. Dressing left groin has hue of serous drainage present as well. Surrounding tissue ecchymotic. No hematoma noted. Assessment/Plan: POD#7 Emergent left common femoral, SFA and external iliac endarterectomy with bovine pericardial patch angioplasty due to occlusion with limb threatening ischemia following elective (planned) angioplasty with stent to left main and LAD; bilateral common iliac kissing stents and aortic stent 1. PAD - post op #7 bilateral iliac stents with aortic stent placement. Doppled pulses bilaterally. Improved arterial circulation peripherally. Continue ASA and Plavix antiplatelet therapy upon discharge. 2. Acute arterial insufficiency left leg due to left common femoral artery occlusion following cath removal - POD#7. Resolved with emergent endarterectomy. Left foot perfusion improved. No motor or sensory deficits. - needs to mobilize more. PT/OT working with patient on advancing activity - ok to discharge to rehab from a vascular surgery perspective and when deemed stable from a medical perspective. - follow up with Dr. Perrin in 2-3 weeks with bilateral LAURO's coordinated. 3. COPD - still on supplemental O2. May need discharged on this as well. 4. CAD - post intervention per CV. Vital Signs Date Time Temp Pulse Resp B/P (MAP) Pulse Ox O2 Delivery O2 Flow Rate FiO2 07/06/18 08:43 82 117/80 07/06/18 08:00 100 Nasal Cannula 3.0 07/06/18 07:00 97.3 18 97.3 Intake and Output 07/06/18 07:00 Intake Total 500 ml Output Total 3651 ml Balance -3151 ml Intake Oral 400 ml IV Total 100 ml Output Urine Total 3650 ml Stool Total 1 ml # Bowel Movements 1 Assessment Assessment Problems Medical Problems: (1) Congestive heart failure Status: Acute Comment Review of Relevant I have reviewed the following items rosangela (where applicable) has been applied. Labs Laboratory Tests Test 07/04/18 12:24 07/04/18 16:54 07/04/18 20:50 07/05/18 06:30 Glucose (Fingerstick) 254 mg/dL (70-99) 211 mg/dL (70-99) 137 mg/dL (70-99) 197 mg/dL (70-99) Test 07/05/18 08:12 07/05/18 11:38 07/05/18 17:15 07/05/18 20:58 Glucose (Fingerstick) 147 mg/dL (70-99) 134 mg/dL (70-99) 152 mg/dL (70-99) 126 mg/dL (70-99) Test 07/06/18 07:38 Glucose (Fingerstick) 155 mg/dL (70-99) Laboratory Tests Test 07/05/18 11:38 07/05/18 17:15 07/05/18 20:58 07/06/18 07:38 Glucose (Fingerstick) 134 mg/dL (70-99) 152 mg/dL (70-99) 126 mg/dL (70-99) 155 mg/dL (70-99) Medications Current Medications Furosemide (Lasix) 40 mg 1X ONCE IVP Last administered on 06/18/18at 14:59; Start 06/18/18 at 14:00; Stop 06/18/18 at 14:47; Status DC Aspirin (Children'S Aspirin) 324 mg 1X ONCE PO Last administered on 06/18/18at 14:59; Start 06/18/18 at 14:00; Stop 06/18/18 at 14:47; Status DC Potassium Chloride (KCl Oral Soln) 40 meq 1X ONCE PO Last administered on 06/18/18 14:59; Start 06/18/18 at 15:00; Stop 06/18/18 at 15:01; Status DC Furosemide (Lasix) 40 mg DAILY IVP ; Start 06/19/18 at 09:00; Stop 06/19/18 at 09:00; Status DC Furosemide (Lasix) 40 mg [id number] IVP ; Start 06/19/18 at 09:00; Stop 06/19/18 at 09:00; Status DC Lisinopril (Prinivil) 2.5 mg DAILY PO Last administered on 07/06/18 08:43; Start 06/19/18 at 09:00 Furosemide (Lasix) 40 mg [id number] IV Last administered on 07/01/18at 16:09; Start 06/18/18 at 16:00; Stop 07/01/18 at 17:45; Status DC Spironolactone (Aldactone) 25 mg DAILY PO Last administered on 07/06/18at 08:43; Start 06/19/18 at 09:00 Heparin Sodium (Porcine) (Heparin Sodium) 5,000 unit Q12HR SQ Last administered on 07/03/18at 08:11; Start 06/18/18 at 16:00; Stop 07/04/18 at 09:35; Status DC Sodium Chloride (Normal Saline Flush) 3 ml QSHIFT PRN IV AFTER MEDS AND BLOOD DRAWS; Start 06/18/18 at 16:00 Ondansetron HCl (Zofran) 4 mg PRN Q4HRS PRN IV NAUSEA/VOMITING; Start 06/18/18 at 16:00 Acetaminophen (Tylenol) 650 mg PRN Q4HRS PRN PO TEMP OVER 100.4F OR MILD PAIN Last administered on 07/05/18at 17:32; Start 06/18/18 at 16:00 Sodium Monofluorophosphate (Fleet Adult) 133 ml PRN DAILY PRN LA CONSTIPATION; Start 06/18/18 at 16:00 Diphenhydramine HCl (Benadryl) 25 mg PRN Q4HRS PRN IVP ITCHING Last administered on 06/28/18at 20:56; Start 06/18/18 at 16:00 Docusate Sodium (Colace) 100 mg PRN BID PRN PO CONSTIPATION Last administered on 06/27/18 08:41; Start 06/18/18 at 16:00 Albuterol Sulfate (Ventolin Neb Soln) 2.5 mg PRN Q4HRS PRN NEB SHORTNESS OF BREATH; Start 06/18/18 at 16:00 Albuterol/ Ipratropium (Duoneb) 3 ml Q4HRS NEB Last administered on 07/06/18 07:54; Start 06/18/18 at 16:00 Aspirin (Ecotrin) 81 mg DAILY08 PO Last administered on 06/28/18 10:14; Start 06/19/18 at 08:00; Stop 07/01/18 at 10:41; Status DC Levothyroxine Sodium (Synthroid) 88 mcg DAILY08 PO Last administered on 07/06/18 08:44; Start 06/19/18 at 08:00 Latanoprost (Xalatan) 1 drop QHS OU Last administered on 07/05/18 21:11; Start 06/18/18 at 21:00 Potassium Chloride (KCl Oral Soln) 40 meq 1X ONCE PO Last administered on 06/19/18 13:43; Start 06/19/18 at 13:00; Stop 06/19/18 at 13:01; Status DC Insulin Glargine (Lantus) 5 units QHS SQ Last administered on 07/03/18 22:12; Start 06/19/18 at 21:00; Stop 07/04/18 at 08:31; Status DC Insulin Human Lispro (HumaLOG) 0-5 UNITS TIDWMEALS SQ Last administered on 07/03/18 17:36; Start 06/19/18 at 12:30; Stop 07/04/18 at 08:31; Status DC Dextrose (Dextrose 50%-Water Syringe) 12.5 gm PRN Q15MIN PRN IV SEE COMMENTS; Start 06/19/18 at 12:15 Clindamycin Phosphate 50 ml @ 100 mls/hr Q8HRS IV Last administered on 06/24/18 14:17; Start 06/21/18 at 10:00; Stop 06/24/18 at 15:00; Status DC Lactobacillus Rhamnosus (Culturelle) 1 cap BID PO Last administered on 07/06/18 08:43; Start 06/21/18 at 21:00 Milrinone Lactate/ Dextrose 100 ml @ 4.022 mls/ hr CONT PRN IV SEE I/O RECORD Last administered on 07/04/18at 00:06; Start 06/22/18 at 13:00; Stop 07/05/18 at 16:24; Status DC Iodixanol (Visipaque 320) 100 ml STK-MED ONCE .ROUTE ; Start 06/23/18 at 06:35; Stop 06/23/18 at 06:36; Status DC Lidocaine HCl (Lidocaine 1% 20ml Vial) 20 ml STK-MED ONCE .ROUTE ; Start 06/23/18 at 06:35; Stop 06/23/18 at 06:36; Status DC Heparin Sodium/ Sodium Chloride 1,500 ml @ As Directed STK-MED ONCE .ROUTE ; Start 06/23/18 at 06:35; Stop 06/23/18 at 06:36; Status DC Iodixanol (Visipaque 320) 100 ml STK-MED ONCE .ROUTE ; Start 06/23/18 at 07:26; Stop 06/23/18 at 07:27; Status DC Midazolam HCl (Versed) 2 mg STK-MED ONCE .ROUTE ; Start 06/23/18 at 07:30; Stop 06/23/18 at 07:31; Status DC Fentanyl Citrate (Fentanyl 2ml Vial) 100 mcg STK-MED ONCE .ROUTE ; Start 06/23/18 at 07:30; Stop 06/23/18 at 07:31; Status DC Verapamil HCl (Verapamil) 5 mg STK-MED ONCE .ROUTE ; Start 06/23/18 at 07:30; Stop 06/23/18 at 07:31; Status DC Heparin Sodium (Porcine) (Heparin Sodium) 10,000 unit STK-MED ONCE .ROUTE ; Start 06/23/18 at 07:30; Stop 06/23/18 at 07:31; Status DC Nitroglycerin (Nitroglycerin) 200 mcg STK-MED ONCE .ROUTE ; Start 06/23/18 at 07:30; Stop 06/23/18 at 07:31; Status DC Nitroglycerin (Nitroglycerin) 200 mcg 1X ONCE IART Last administered on 06/23/18at 08:20; Start 06/23/18 at 08:15; Stop 06/23/18 at 08:18; Status DC Verapamil HCl (Verapamil) 2.5 mg 1X ONCE IART Last administered on 06/23/18 08:22; Start 06/23/18 at 08:15; Stop 06/23/18 at 08:18; Status DC Heparin Sodium (Porcine) (Heparin Sodium) 2,500 unit 1X ONCE IART Last administered on 06/23/18 08:23; Start 06/23/18 at 08:15; Stop 06/23/18 at 08:18; Status DC Heparin Sodium/ Sodium Chloride (HEPARIN for ARTERIAL LINE FLUSH) 1,000 unit 1X ONCE IART Last administered on 06/23/18 08:20; Start 06/23/18 at 08:15; Stop 06/23/18 at 08:18; Status DC Heparin Sodium/ Sodium Chloride (HEPARIN for ARTERIAL LINE FLUSH) 1,000 unit 1X ONCE IART Last administered on 06/23/18 08:20; Start 06/23/18 at 08:15; Stop 06/23/18 at 08:18; Status DC Midazolam HCl (Versed) 1.5 mg 1X ONCE IV Last administered on 06/23/18 08:21; Start 06/23/18 at 08:15; Stop 06/23/18 at 08:18; Status DC Fentanyl Citrate (Fentanyl 2ml Vial) 75 mcg 1X ONCE IV Last administered on 06/23/18 08:22; Start 06/23/18 at 08:15; Stop 06/23/18 at 08:18; Status DC Iodixanol (Visipaque 320) 99 ml 1X ONCE IART Last administered on 06/23/18 08:20; Start 06/23/18 at 08:15; Stop 06/23/18 at 08:18; Status DC Lidocaine HCl (Lidocaine 1% 20ml Vial) 1 ml 1X ONCE INJ Last administered on 06/23/18 08:20; Start 06/23/18 at 08:15; Stop 06/23/18 at 08:18; Status DC Info (CONTRAST GIVEN -- Rx MONITORING) 1 each PRN DAILY PRN MC SEE COMMENTS; Start 06/23/18 at 08:30; Stop 06/25/18 at 08:29; Status DC Sodium Chloride 250 ml @ 250 mls/hr 1X ONCE IV Last administered on 06/23/18at 11:07; Start 06/23/18 at 11:15; Stop 06/23/18 at 12:14; Status DC Furosemide (Lasix) 40 mg 1X ONCE IVP Last administered on 06/23/18at 20:46; Start 06/23/18 at 20:15; Stop 06/23/18 at 20:19; Status DC Magnesium Sulfate 50 ml @ 25 mls/hr 1X ONCE IV Last administered on 06/24/18at 14:13; Start 06/24/18 at 12:30; Stop 06/24/18 at 14:29; Status DC Potassium Chloride (Klor-Con) 40 meq 1X ONCE PO Last administered on 06/24/18at 14:14; Start 06/24/18 at 12:30; Stop 06/24/18 at 12:31; Status DC Clindamycin HCl (Cleocin) 300 mg QID PO Last administered on 06/28/18at 20:56; Start 06/24/18 at 21:00; Stop 06/29/18 at 15:41; Status DC Potassium Chloride (Klor-Con) 40 meq DAILY PO Last administered on 07/06/18at 08:43; Start 06/25/18 at 11:15 Magnesium Sulfate 50 ml @ 25 mls/hr 1X ONCE IV Last administered on 06/25/18at 12:07; Start 06/25/18 at 11:15; Stop 06/25/18 at 13:14; Status DC Potassium Chloride (Klor-Con) 40 meq 1X ONCE PO Last administered on 06/26/18at 08:50; Start 06/26/18 at 07:45; Stop 06/26/18 at 07:50; Status DC Clopidogrel Bisulfate (Plavix) 300 mg 1X ONCE PO Last administered on 06/26/18at 13:10; Start 06/26/18 at 11:00; Stop 06/26/18 at 11:06; Status DC Clopidogrel Bisulfate (Plavix) 75 mg DAILYWBKFT PO Last administered on 07/06/18at 08:42; Start 06/27/18 at 08:00 Methylprednisolone Sodium Succinate (SOLU-Medrol 40MG VIAL) 40 mg Q8HRS IV Last administered on 07/04/18at 06:14; Start 06/27/18 at 09:15; Stop 07/04/18 at 08:00 ; Status DC Atorvastatin Calcium (Lipitor) 40 mg QHS PO Last administered on 07/05/18at 21:11; Start 06/28/18 at 21:00 Heparin Sodium (Porcine) 5000 unit/Sodium Chloride 505 ml @ 505 mls/hr 1X ONCE IRR ; Start 06/29/18 at 06:00; Stop 06/29/18 at 06:59; Status DC Cefazolin Sodium/ Dextrose 50 ml @ 100 mls/hr 1X PREOP PRN IV on hold OR; Start 06/29/18 at 06:00; Stop 06/29/18 at 11:19; Status DC Ondansetron HCl (Zofran) 4 mg PRN Q6HRS PRN IV NAUSEA/VOMITING; Start 06/29/18 at 07:00; Stop 06/30/18 at 06:59; Status DC Fentanyl Citrate (Fentanyl 2ml Vial) 25 mcg PRN Q5MIN PRN IV MILD PAIN; Start 06/29/18 at 07:00; Stop 06/30/18 at 06:59; Status DC Fentanyl Citrate (Fentanyl 2ml Vial) 50 mcg PRN Q5MIN PRN IV MODERATE TO SEVERE PAIN; Start 06/29/18 at 07:00; Stop 06/30/18 at 06:59; Status DC Morphine Sulfate (Morphine Sulfate) 1 mg PRN Q10MIN PRN IV SEVERE PAIN; Start 06/29/18 at 07:00; Stop 06/30/18 at 06:59; Status DC Ringer's Solution 1,000 ml @ 30 mls/hr Q24H IV Last administered on 06/29/18at 10:12; Start 06/29/18 at 07:00; Stop 06/29/18 at 18:59; Status DC Lidocaine HCl (Xylocaine-Mpf 1% 2ml Vial) 2 ml PRN 1X PRN ID PRIOR TO IV START; Start 06/29/18 at 07:00; Stop 06/30/18 at 06:59; Status DC Hydromorphone HCl (Dilaudid) 0.5 mg PRN Q10MIN PRN IV SEV PAIN, Second choice; Start 06/29/18 at 07:00; Stop 06/30/18 at 06:59; Status DC Prochlorperazine Edisylate (Compazine) 5 mg PACU PRN PRN IV NAUSEA, MRX1; Start 06/29/18 at 07:00; Stop 06/30/18 at 06:59; Status DC Bupivacaine HCl/ Epinephrine Bitart (Sensorcain-Mpf Epi 0.5%-1:[id number]) 30 ml STK-MED ONCE .ROUTE ; Start 06/29/18 at 05:59; Stop 06/29/18 at 06:59; Status DC Gelatin (Gelfoam Size 12-7mm) 1 each STK-MED ONCE .ROUTE ; Start 06/29/18 at 05:59; Stop 06/29/18 at 06:59; Status DC Iohexol (Omnipaque 300 Mg/ml) 100 ml STK-MED ONCE .ROUTE ; Start 06/29/18 at 05:59; Stop 06/29/18 at 07:00; Status DC Bupivacaine HCl (Sensorcaine Mpf 0.25%) 30 ml STK-MED ONCE .ROUTE ; Start 06/29/18 at 05:59; Stop 06/29/18 at 07:00; Status DC Papaverine HCl 60 mg STK-MED ONCE .ROUTE ; Start 06/29/18 at 06:00; Stop 06/29/18 at 07:01; Status DC Thrombin 20,000 unit STK-MED ONCE TP ; Start 06/29/18 at 06:00; Stop 06/29/18 at 07:01; Status DC Sodium Chloride (SODIUM CHLORIDE 20ml) 20 ml STK-MED ONCE IJ ; Start 06/29/18 at 09:46; Stop 06/29/18 at 09:47; Status DC Famotidine (Pepcid Vial) 20 mg STK-MED ONCE .ROUTE ; Start 06/29/18 at 09:46; Stop 06/29/18 at 09:47; Status DC Ondansetron HCl (Zofran) 4 mg STK-MED ONCE .ROUTE ; Start 06/29/18 at 09:46; Stop 06/29/18 at 09:47; Status DC Dexamethasone Sodium Phosphate (Decadron) 20 mg STK-MED ONCE .ROUTE ; Start 06/29/18 at 09:46; Stop 06/29/18 at 09:47; Status DC Lidocaine HCl (Lidocaine Pf 2% Vial) 5 ml STK-MED ONCE .ROUTE ; Start 06/29/18 at 09:46; Stop 06/29/18 at 09:47; Status DC Etomidate (Amidate) 20 mg STK-MED ONCE IV ; Start 06/29/18 at 09:46; Stop 06/29/18 at 09:47; Status DC Phenylephrine HCl (PHENYLEPHRINE in 0.9% NACL PF) 1 mg STK-MED ONCE IV ; Start 06/29/18 at 09:46; Stop 06/29/18 at 09:47; Status DC Fentanyl Citrate (Fentanyl 2ml Vial) 100 mcg STK-MED ONCE .ROUTE ; Start 06/29/18 at 09:47; Stop 06/29/18 at 09:48; Status DC Hydromorphone HCl (Dilaudid) 2 mg STK-MED ONCE .ROUTE ; Start 06/29/18 at 09:47; Stop 06/29/18 at 09:48; Status DC Glycopyrrolate (Robinul) 1 mg STK-MED ONCE .ROUTE ; Start 06/29/18 at 09:47; Stop 06/29/18 at 09:48; Status DC Rocuronium [place] (Zemuron) 100 mg STK-MED ONCE .ROUTE ; Start 06/29/18 at 09:47; Stop 06/29/18 at 09:48; Status DC Neostigmine Methylsulfate (Neostigmine Methylsulfate) 5 mg STK-MED ONCE .ROUTE ; Start 06/29/18 at 09:47; Stop 06/29/18 at 09:48; Status DC Albumin Human 0 ml @ As Directed STK-MED ONCE IV ; Start 06/29/18 at 09:48; Stop 06/29/18 at 09:49; Status DC Iodixanol (Visipaque 320) 100 ml STK-MED ONCE .ROUTE ; Start 06/29/18 at 10:11; Stop 06/29/18 at 10:12; Status DC Lidocaine HCl (Lidocaine 1% 20ml Vial) 20 ml STK-MED ONCE .ROUTE ; Start 06/29/18 at 10:11; Stop 06/29/18 at 10:12; Status DC Iodixanol (Visipaque 320) 50 ml STK-MED ONCE .ROUTE ; Start 06/29/18 at 10:11; Stop 06/29/18 at 10:12; Status DC Heparin Sodium/ Sodium Chloride 1,000 ml @ As Directed STK-MED ONCE .ROUTE ; Start 06/29/18 at 10:11; Stop 06/29/18 at 10:12; Status DC Bupivacaine HCl (Sensorcaine Mpf 0.5%) 30 ml STK-MED ONCE .ROUTE Last administered on 06/29/18at 12:42; Start 06/29/18 at 09:59; Stop 06/29/18 at 10:59; Status DC Bacitracin (Bacitracin) 50,000 unit STK-MED ONCE IRR ; Start 06/29/18 at 10:00; Stop 06/29/18 at 11:00; Status DC Vancomycin HCl 250 ml @ 250 mls/hr 1X ONCE IV Last administered on 06/29/18at 11:15; Start 06/29/18 at 11:15; Stop 06/29/18 at 12:14; Status DC Heparin Sodium (Porcine) (Heparin Sodium) 10,000 unit STK-MED ONCE .ROUTE ; Start 06/29/18 at 11:49; Stop 06/29/18 at 11:50; Status DC Cellulose (Surgicel Fibrillar 1x2) 1 each STK-MED ONCE .ROUTE ; Start 06/29/18 at 11:50; Stop 06/29/18 at 11:51; Status DC Phenylephrine HCl (Justin-Synephrine Inj) 10 mg STK-MED ONCE .ROUTE ; Start 06/29/18 at 11:57; Stop 06/29/18 at 11:58; Status DC Sevoflurane (Ultane) 90 ml STK-MED ONCE IH ; Start 06/29/18 at 12:07; Stop 06/29/18 at 12:08; Status DC Heparin Sodium/ Sodium Chloride 500 ml @ As Directed STK-MED ONCE .ROUTE ; Start 06/29/18 at 12:35; Stop 06/29/18 at 12:36; Status DC Iodixanol (Visipaque 320) 100 ml STK-MED ONCE .ROUTE ; Start 06/29/18 at 12:52; Stop 06/29/18 at 12:53; Status DC Iodixanol (Visipaque 320) 100 ml STK-MED ONCE .ROUTE ; Start 06/29/18 at 13:17; Stop 06/29/18 at 13:18; Status DC Lidocaine HCl (Lidocaine 1% 20ml Vial) 20 ml STK-MED ONCE .ROUTE ; Start 06/29/18 at 13:17; Stop 06/29/18 at 13:18; Status DC Heparin Sodium/ Sodium Chloride 1,000 ml @ As Directed STK-MED ONCE .ROUTE ; Start 06/29/18 at 13:18; Stop 06/29/18 at 13:19; Status DC Heparin Sodium (Porcine) (Heparin Sodium) 10,000 unit STK-MED ONCE .ROUTE ; Start 06/29/18 at 13:19; Stop 06/29/18 at 13:20; Status DC Heparin Sodium/ Sodium Chloride (HEPARIN for ARTERIAL LINE FLUSH) 1,000 unit 1X ONCE IART Last administered on 06/29/18at 14:15; Start 06/29/18 at 14:15; Stop 06/29/18 at 14:16; Status DC Heparin Sodium/ Sodium Chloride (HEPARIN for ARTERIAL LINE FLUSH) 1,000 unit 1X ONCE IART Last administered on 06/29/18at 14:15; Start 06/29/18 at 14:15; Stop 06/29/18 at 14:16; Status DC Heparin Sodium (Porcine) (Heparin Sodium) 4,000 unit 1X ONCE IV Last administered on 06/29/18at 14:15; Start 06/29/18 at 14:15; Stop 06/29/18 at 14:16; Status DC Iodixanol (Visipaque 320) 100 ml 1X ONCE IART Last administered on 06/29/18at 14:30; Start 06/29/18 at 14:30; Stop 06/29/18 at 14:31; Status DC Heparin Sodium/ Sodium Chloride 500 ml @ As Directed STK-MED ONCE .ROUTE ; Start 06/29/18 at 14:35; Stop 06/29/18 at 14:36; Status DC Nitroglycerin (Nitroglycerin) 200 mcg 1X ONCE IART Last administered on 06/29/18at 15:30; Start 06/29/18 at 15:30; Stop 06/29/18 at 15:31; Status DC Iodixanol (Visipaque 320) 100 ml STK-MED ONCE .ROUTE ; Start 06/29/18 at 15:51; Stop 06/29/18 at 15:52; Status DC Iodixanol (Visipaque 320) 100 ml STK-MED ONCE .ROUTE ; Start 06/29/18 at 16:52; Stop 06/29/18 at 16:53; Status DC Aspirin (Aspirin) 300 mg 1X ONCE LA Last administered on 06/29/18at 18:18; Start 06/29/18 at 17:30; Stop 06/29/18 at 17:31; Status DC Clopidogrel Bisulfate (Plavix) 300 mg 1X ONCE PO Last administered on 06/29/18at 18:18; Start 06/29/18 at 17:30; Stop 06/29/18 at 17:31; Status DC Fentanyl Citrate 30 ml @ 0 mls/hr CONT PRN IV SEE PROTOCOL Last administered on 07/01/18at 04:49; Start 06/29/18 at 17:30; Stop 07/02/18 at 15:47; Status DC Fentanyl Citrate (Fentanyl 2ml Vial) 25 mcg PRN Q1HR PRN IV SEE COMMENTS Last administered on 07/01/18at 14:48; Start 06/29/18 at 17:30 Fentanyl Citrate (Fentanyl 2ml Vial) 50 mcg PRN Q1HR PRN IV SEE COMMENTS; Start 06/29/18 at 17:30 Chlorhexidine Gluconate (Peridex) 15 ml BID MM Last administered on 07/02/18at 21:47; Start 06/29/18 at 21:00; Stop 07/03/18 at 10:29; Status DC Morphine Sulfate (Morphine Sulfate) 2 mg PRN Q1HR PRN IV SEE COMMENTS.; Start 06/29/18 at 17:30 Morphine Sulfate (Morphine Sulfate) 4 mg PRN Q1HR PRN IV SEE COMMENTS.; Start 06/29/18 at 17:30 Midazolam HCl 100 ml @ 0 mls/hr CONT PRN IV SEE PROTOCOL Last administered on 06/30/18at 12:04; Start 06/29/18 at 17:30; Stop 07/04/18 at 08:07; Status DC Vecuronium [place] (Norcuron Bolus) 6 mg PRN Q2HRS PRN IV ANXIETY / AGITATION; Start 06/29/18 at 17:30; Stop 07/02/18 at 15:47; Status DC Heparin Sodium (Porcine) 5000 unit/Sodium Chloride 505 ml @ 505 mls/hr 1X ONCE IRR Last administered on 06/29/18at 20:34; Start 06/29/18 at 19:30; Stop 06/29/18 at 20:30; Status DC Iohexol (Omnipaque 300 Mg/ml) 100 ml STK-MED ONCE .ROUTE ; Start 06/29/18 at 18:16; Stop 06/29/18 at 19:17; Status DC Cellulose (Surgicel Fibrillar 1x2) 1 each STK-MED ONCE .ROUTE ; Start 06/29/18 at 19:17; Stop 06/29/18 at 19:18; Status DC Rocuronium [place] (Zemuron) 50 mg STK-MED ONCE .ROUTE ; Start 06/29/18 at 19:42; Stop 06/29/18 at 19:43; Status DC Vancomycin HCl 1 gm/Sodium Chloride 250 ml @ 250 mls/hr 1X ONCE IV Last administered on 06/29/18at 20:34; Start 06/29/18 at 20:45; Stop 06/29/18 at 21:44; Status DC Vancomycin HCl 250 ml @ 250 mls/hr 1X ONCE IV ; Start 06/29/18 at 20:45; Stop 06/29/18 at 21:44; Status UNV Hydrocortisone Sodium Succinate (Solu-CORTEF) 100 mg STK-MED ONCE .ROUTE ; Start 06/29/18 at 20:50; Stop 06/29/18 at 20:51; Status DC Heparin Sodium (Porcine) (Heparin Sodium) 10,000 unit STK-MED ONCE .ROUTE ; Start 06/29/18 at 21:01; Stop 06/29/18 at 21:02; Status DC Phenylephrine HCl (PHENYLEPHRINE in 0.9% NACL PF) 1 mg STK-MED ONCE IV ; Start 06/29/18 at 21:35; Stop 06/29/18 at 21:36; Status DC Sevoflurane (Ultane) 90 ml STK-MED ONCE IH ; Start 06/29/18 at 21:36; Stop 06/29/18 at 21:37; Status DC Protamine Sulfate (Protamine) 50 mg STK-MED ONCE IV ; Start 06/29/18 at 21:45; Stop 06/29/18 at 21:46; Status DC Cellulose (Surgicel Fibrillar 1x2) 1 each STK-MED ONCE TP Last administered on 06/29/18at 21:52; Start 06/29/18 at 21:52; Stop 06/29/18 at 21:58; Status DC Sodium Chloride 500 ml @ 500 mls/hr 1X ONCE IV Last administered on 06/29/18at 23:47; Start 06/29/18 at 23:00; Stop 06/29/18 at 23:59; Status DC Sodium Chloride 500 ml @ 500 mls/hr 1X ONCE IV Last administered on 06/30/18at 00:27; Start 06/30/18 at 00:00; Stop 06/30/18 at 00:59; Status DC Norepinephrine Bitartrate 250 ml @ 1.875 mls/ hr CONT PRN IV SEE I/O RECORD Last administered on 06/30/18at 00:26; Start 06/29/18 at 23:45; Stop 07/04/18 at 08:07; Status DC Rocuronium [place] (Zemuron) 50 mg STK-MED ONCE .ROUTE ; Start 06/29/18 at 12:00; Stop 06/30/18 at 08:09; Status DC Aspirin (Aspirin) 300 mg DAILY LA Last administered on 07/02/18at 08:47; Start 06/30/18 at 10:00; Stop 07/02/18 at 15:43; Status DC Potassium Chloride (KCl Oral Soln) 40 meq DAILY PEG Last administered on 07/02/18at 08:43; Start 06/30/18 at 10:00; Stop 07/02/18 at 15:43; Status DC Cefazolin Sodium/ Dextrose (Ancef 2gm Premix) 2 gm STK-MED ONCE IV ; Start 06/29/18 at 11:00; Stop 06/30/18 at 12:24; Status DC Hydralazine HCl (Apresoline Inj) 10 mg PRN Q6HRS PRN IVP ELEVATED BP, SEE COMMENTS; Start 06/30/18 at 14:00; Status UNV Albumin Human 100 ml @ 100 mls/hr 1X ONCE IV Last administered on 06/30/18at 19:39; Start 06/30/18 at 19:15; Stop 06/30/18 at 20:14; Status DC Phenylephrine HCl (PHENYLEPHRINE in 0.9% NACL PF) 0.1 mg 1X ONCE IV Last administered on 06/30/18at 19:15; Start 06/30/18 at 19:15; Stop 06/30/18 at 1 9:16; Status DC Aspirin (Ecotrin) 81 mg PRN DAILY PRN PO WHEN PO TOLERATED; Start 07/01/18 at 10:45; Stop 07/02/18 at 15:43; Status DC Fentanyl Citrate (Fentanyl 2ml Vial) 25 mcg PRN Q1HR PRN IV SEE COMMENTS; Start 07/01/18 at 13:30; Stop 07/02/18 at 09:04; Status DC Fentanyl Citrate (Fentanyl 2ml Vial) 50 mcg PRN Q1HR PRN IV SEE COMMENTS; Start 07/01/18 at 13:30; Stop 07/02/18 at 09:04; Status DC Chlorhexidine Gluconate (Peridex) 15 ml BID MM ; Start 07/01/18 at 21:00; Status Cancel Dexmedetomidine HCl 200 mcg/ Sodium Chloride 50 ml @ 0 mls/hr CONT PRN IV PER PROTOCOL Last administered on 07/02/18at 01:52; Start 07/01/18 at 13:30; Stop 07/04/18 at 08:07; Status DC Sodium Chloride 500 ml @ 500 mls/hr 1X PRN PRN IV SEE COMMENTS; Start 07/01/18 at 13:30 Atropine Sulfate (ATROPINE 0.5mg SYRINGE) 0.5 mg PRN Q5MIN PRN IV SEE COMMENTS; Start 07/01/18 at 13:30 Furosemide (Lasix) 40 mg DAILY IV Last administered on 07/06/18at 08:44; Start 07/02/18 at 09:00 Aspirin (Ecotrin) 81 mg DAILY08 PO Last administered on 07/06/18at 08:44; Start 07/03/18 at 08:00 Furosemide (Lasix) 40 mg 1X ONCE IVP Last administered on 07/02/18at 21:30; S tart 07/02/18 at 21:00; Stop 07/02/18 at 21:01; Status DC Methylprednisolone Sodium Succinate (SOLU-Medrol 40MG VIAL) 40 mg Q12HR IV Last administered on 07/06/18at 08:45; Start 07/04/18 at 21:00 Azithromycin (Zithromax) 500 mg 1X ONCE PO Last administered on 07/04/18at 09:21; Start 07/04/18 at 09:00; Stop 07/04/18 at 09:01; Status DC Azithromycin (Zithromax) 250 mg DAILY PO Last administered on 07/06/18at 08:44; Start 07/05/18 at 09:00 Insulin Glargine (Lantus) 10 units QHS SQ Last administered on 07/05/18at 21:21; Start 07/04/18 at 21:00 Insulin Human Lispro (HumaLOG) 3 units TIDAC SQ Last administered on 07/06/18at 08:45; Start 07/04/18 at 11:30 Insulin Human Lispro (HumaLOG) 0-7 UNITS TIDWMEALS SQ Last administered on 07/06/18at 08:48; Start 07/04/18 at 12:00 Dextrose (Dextrose 50%-Water Syringe) 12.5 gm PRN Q15MIN PRN IV SEE COMMENTS; Start 07/04/18 at 08:30; Stop 07/04/18 at 13:13; Status DC Heparin Sodium/ Dextrose 500 ml @ 10 mls/hr CONT PRN IV SEE I/O RECORD; Start 07/04/18 at 09:45; Stop 07/04/18 at 11:06; Status DC Enoxaparin Sodium (Lovenox 40mg Syringe) 40 mg Q24H SQ ; Start 07/05/18 at 09:00 Lorazepam (Ativan) 1 mg PRN Q8HRS PRN IV ANXIETY / AGITATION Last administered on 07/05/18at 08:44; Start 07/05/18 at 08:00 Acetaminophen/ Hydrocodone Bitart (Lortab 5/325) 1 tab PRN Q4HRS PRN PO MODERATE - SEVERE PAIN; Start 07/05/18 at 09:15 Metoprolol Tartrate (Lopressor) 25 mg Q6HRS PO Last administered on 07/06/18at 06:25; Start 07/05/18 at 18:00 Furosemide (Lasix) 40 mg 1X ONCE IVP Last administered on 07/05/18at 18:13; Start 07/05/18 at 18:00; Stop 07/05/18 at 18:01; Status DC Active Scripts Active Clindamycin Hcl 300 Mg Capsule 300 Mg PO QID 7 Days Lasix (Furosemide) 40 Mg Tablet 40 Mg PO BID 14 Days Aldactone (Spironolactone) 25 Mg Tablet 25 Mg PO DAILY MDD 1 Lisinopril 5 Mg Tablet 2.5 Mg PO DAILY MDD 1 Proair Hfa (Albuterol Sulfate) 8.5 Gm Hfa.aer.ad 2.5 Mg NEB PRN Q4HRS PRN MDD 1 Reported Aspir-Low (Aspirin) 81 Mg Tablet.dr 1 Tab PO DAILY Triamterene-Hctz 37.5-25 Mg Cp (Triamterene/Hydrochlorothiazid) 1 Each Capsule 1 Cap PO DAILY Synthroid (Levothyroxine Sodium) 88 Mcg Tablet 1 Tab PO DAILY Latanoprost 2.5 Ml Drops 1 Drop EACHEYE QHS Vitals/I & O Vital Sign - Last 24 Hours 07/05/18 07/05/18 07/05/18 07/05/18 11:00 11:56 15:34 17:15 Temp 98.0 97.7 98.0 97.7 Pulse 106 97 Resp 18 20 B/P (MAP) 118/84 (95) 126/79 (95) Pulse Ox 92 95 O2 Delivery Nasal Cannula Nasal Cannula Nasal Cannula Nasal Cannula O2 Flow Rate 4.0 3.0 84.0 3.0 07/05/18 07/05/18 07/05/18 07/05/18 17:33 17:33 19:20 19:50 Temp 97.7 97.7 Pulse 105 107 103 Resp 22 B/P (MAP) 126/79 126/79 107/66 (80) Pulse Ox 92 O2 Delivery Nasal Cannula Nasal Cannula O2 Flow Rate 3.0 3.0 07/05/18 07/05/18 07/06/18 07/06/18 20:15 22:40 00:00 03:30 Temp 97.8 97.8 97.8 97.8 Pulse 86 86 79 Resp 20 18 B/P (MAP) 116/77 (90) 116/77 118/78 (91) Pulse Ox 93 95 96 O2 Delivery Nasal Cannula Nasal Cannula Nasal Cannula O2 Flow Rate 3.0 3.0 3.0 07/06/18 07/06/18 07/06/18 07/06/18 06:25 07:00 08:00 08:43 Temp 97.3 97.3 Pulse 81 82 82 Resp 18 B/P (MAP) 118/78 117/80 (92) 117/80 Pulse Ox 97 100 O2 Delivery Nasal Cannula Nasal Cannula O2 Flow Rate 3.0 3.0 Intake and Output 07/05/18 07/05/18 07/06/18 15:00 23:00 07:00 Intake Total 100 ml 400 ml Output Total 2050 ml 251 ml 1350 ml Balance -1950 ml -251 ml -950 ml PAULINE SIMS EVP [place] Jul 06, 2018 10:43
[2018-07-06 10:45] VITALS: BP 91/58
--- NOTE | 2018-07-06 13:42 | PDOC ---
BRIEF OPERATIVE NOTE Date: Jun 29, 2018 Pre-Op Diagnosis 1. Severe coronary artery disease. 2. Bilateral critical common iliac artery stenosis and terminal aortic stenosis. 3. Severe infrarenal aortic stenosis secondary to an eccentric aortic plaque. Post-Op Diagnosis 1. Severe coronary artery disease. 2. Bilateral critical common iliac artery stenosis and terminal aortic stenosis. 3. Severe infrarenal aortic stenosis secondary to an eccentric aortic plaque. Procedure Performed 1. Left common iliac artery angioplasty with 9 x 59 mm [place] VBX stent deployment expanded to 11 atmospheres of pressure. 2. Right common iliac artery angioplasty with 9 x 59 mm [place] VBX stent deployment expanded to 11 atmospheres of pressure. 3. Aortic 59 x 11 mm [place] VBX stent expanded to 11 atmospheres to pressure. Surgeon Elsie Perrin M.D. Auto Wheel Alignment Specialist None Anesthesia Type: General Complications None Operative Note See dictated operative note. ELSIE PERRIN MD Jul 06, 2018 13:42
--- NOTE | 2018-07-06 13:54 | PDOC ---
PULMONARY PROGRESS NOTES Subjective Patient is up in chair on 2 liters N/C, PT. denies CP, SOB, reports productive cough. She reports she walked with therapy today. She is planned to discharge to [facility] rehab today. Vitals Laboratory Tests Test 07/05/18 17:15 07/05/18 20:58 07/06/18 07:38 07/06/18 11:31 Glucose (Fingerstick) 152 mg/dL 126 mg/dL 155 mg/dL 183 mg/dL Current Medications Medications (Trade) Dose Ordered Sig/Segundo Route PRN Reason Start Time Stop Time Status Last Admin Dose Admin Furosemide (Lasix) 40 mg 1X ONCE IVP 06/18/18 14:00 06/18/18 14:47 DC 06/18/18 14:59 Aspirin (Children'S Aspirin) 324 mg 1X ONCE PO 06/18/18 14:00 06/18/18 14:47 DC 06/18/18 14:59 Potassium Chloride (KCl Oral Soln) 40 meq 1X ONCE PO 06/18/18 15:00 06/18/18 15:01 DC 06/18/18 14:59 Furosemide (Lasix) 40 mg DAILY IVP 06/19/18 09:00 06/19/18 09:00 DC Furosemide (Lasix) 40 mg [id number] IVP 06/19/18 09:00 06/19/18 09:00 DC Lisinopril (Prinivil) 2.5 mg DAILY PO 06/19/18 09:00 07/06/18 08:43 Furosemide (Lasix) 40 mg [id number] IV 06/18/18 16:00 07/01/18 17:45 DC 07/01/18 16:09 Spironolactone (Aldactone) 25 mg DAILY PO 06/19/18 09:00 07/06/18 08:43 Heparin Sodium (Porcine) (Heparin Sodium) 5,000 unit Q12HR SQ 06/18/18 16:00 07/04/18 09:35 DC 07/03/18 08:11 Sodium Chloride (Normal Saline Flush) 3 ml QSHIFT PRN IV AFTER MEDS AND BLOOD DRAWS 06/18/18 16:00 Ondansetron HCl (Zofran) 4 mg PRN Q4HRS PRN IV NAUSEA/VOMITING 06/18/18 16:00 Acetaminophen (Tylenol) 650 mg PRN Q4HRS PRN PO TEMP OVER 100.4F OR MILD PAIN 06/18/18 16:00 07/05/18 17:32 Sodium Monofluorophosphate (Fleet Adult) 133 ml PRN DAILY PRN [place] CONSTIPATION 06/18/18 16:00 Diphenhydramine HCl (Benadryl) 25 mg PRN Q4HRS PRN IVP ITCHING 06/18/18 16:00 06/28/18 20:56 Docusate Sodium (Colace) 100 mg PRN BID PRN PO CONSTIPATION 06/18/18 16:00 06/27/18 08:41 Albuterol Sulfate (Ventolin Neb Soln) 2.5 mg PRN Q4HRS PRN NEB SHORTNESS OF BREATH 06/18/18 16:00 Albuterol/ Ipratropium (Duoneb) 3 ml Q4HRS NEB 06/18/18 16:00 07/06/18 11:55 Aspirin (Ecotrin) 81 mg DAILY08 PO 06/19/18 08:00 07/01/18 10:41 DC 06/28/18 10:14 Levothyroxine Sodium (Synthroid) 88 mcg DAILY08 PO 06/19/18 08:00 07/06/18 08:44 Latanoprost (Xalatan) 1 drop QHS OU 06/18/18 21:00 07/05/18 21:11 Potassium Chloride (KCl Oral Soln) 40 meq 1X ONCE PO 06/19/18 13:00 06/19/18 13:01 DC 06/19/18 13:43 Insulin Glargine (Lantus) 5 units QHS SQ 06/19/18 21:00 07/04/18 08:31 DC 07/03/18 22:12 Insulin Human Lispro (HumaLOG) 0-5 UNITS TIDWMEALS SQ 06/19/18 12:30 07/04/18 08:31 DC 07/03/18 17:36 Dextrose (Dextrose 50%-Water Syringe) 12.5 gm PRN Q15MIN PRN IV SEE COMMENTS 06/19/18 12:15 Clindamycin Phosphate 50 ml @ 100 mls/hr Q8HRS IV 06/21/18 10:00 06/24/18 15:00 DC 06/24/18 14:17 Lactobacillus Rhamnosus (Culturelle) 1 cap BID PO 06/21/18 21:00 07/06/18 08:43 Milrinone Lactate/ Dextrose 100 ml @ 4.022 mls/ hr CONT PRN IV SEE I/O RECORD 06/22/18 13:00 07/05/18 16:24 DC 07/04/18 00:06 Iodixanol (Visipaque 320) 100 ml STK-MED ONCE .ROUTE 06/23/18 06:35 06/23/18 06:36 DC Lidocaine HCl (Lidocaine 1% 20ml Vial) 20 ml STK-MED ONCE .ROUTE 06/23/18 06:35 06/23/18 06:36 DC Heparin Sodium/ Sodium Chloride 1,500 ml @ As Directed STK-MED ONCE .ROUTE 06/23/18 06:35 06/23/18 06:36 DC Iodixanol (Visipaque 320) 100 ml STK-MED ONCE .ROUTE 06/23/18 07:26 06/23/18 07:27 DC Midazolam HCl (Versed) 2 mg STK-MED ONCE .ROUTE 06/23/18 07:30 06/23/18 07:31 DC Fentanyl Citrate (Fentanyl 2ml Vial) 100 mcg STK-MED ONCE .ROUTE 06/23/18 07:30 06/23/18 07:31 DC Verapamil HCl (Verapamil) 5 mg STK-MED ONCE .ROUTE 06/23/18 07:30 06/23/18 07:31 DC Heparin Sodium (Porcine) (Heparin Sodium) 10,000 unit STK-MED ONCE .ROUTE 06/23/18 07:30 06/23/18 07:31 DC Nitroglycerin (Nitroglycerin) 200 mcg STK-MED ONCE .ROUTE 06/23/18 07:30 06/23/18 07:31 DC Nitroglycerin (Nitroglycerin) 200 mcg 1X ONCE IART 06/23/18 08:15 06/23/18 08:18 DC 06/23/18 08:20 Verapamil HCl (Verapamil) 2.5 mg 1X ONCE IART 06/23/18 08:15 06/23/18 08:18 DC 06/23/18 08:22 Heparin Sodium (Porcine) (Heparin Sodium) 2,500 unit 1X ONCE IART 06/23/18 08:15 06/23/18 08:18 DC 06/23/18 08:23 Heparin Sodium/ Sodium Chloride (HEPARIN for ARTERIAL LINE FLUSH) 1,000 unit 1X ONCE IART 06/23/18 08:15 06/23/18 08:18 DC 06/23/18 08:20 Heparin Sodium/ Sodium Chloride (HEPARIN for ARTERIAL LINE FLUSH) 1,000 unit 1X ONCE IART 06/23/18 08:15 06/23/18 08:18 DC 06/23/18 08:20 Midazolam HCl (Versed) 1.5 mg 1X ONCE IV 06/23/18 08:15 06/23/18 08:18 DC 06/23/18 08:21 Fentanyl Citrate (Fentanyl 2ml Vial) 75 mcg 1X ONCE IV 06/23/18 08:15 06/23/18 08:18 DC 06/23/18 08:22 Iodixanol (Visipaque 320) 99 ml 1X ONCE IART 06/23/18 08:15 06/23/18 08:18 DC 06/23/18 08:20 Lidocaine HCl (Lidocaine 1% 20ml Vial) 1 ml 1X ONCE INJ 06/23/18 08:15 06/23/18 08:18 DC 06/23/18 08:20 Info (CONTRAST GIVEN -- Rx MONITORING) 1 each PRN DAILY PRN MC SEE COMMENTS 06/23/18 08:30 06/25/18 08:29 DC Sodium Chloride 250 ml @ 250 mls/hr 1X ONCE IV 06/23/18 11:15 06/23/18 12:14 DC 06/23/18 11:07 Furosemide (Lasix) 40 mg 1X ONCE IVP 06/23/18 20:15 06/23/18 20:19 DC 06/23/18 20:46 Magnesium Sulfate 50 ml @ 25 mls/hr 1X ONCE IV 06/24/18 12:30 06/24/18 14:29 DC 06/24/18 14:13 Potassium Chloride (Klor-Con) 40 meq 1X ONCE PO 06/24/18 12:30 06/24/18 12:31 DC 06/24/18 14:14 Clindamycin HCl (Cleocin) 300 mg QID PO 06/24/18 21:00 06/29/18 15:41 DC 06/28/18 20:56 Potassium Chloride (Klor-Con) 40 meq DAILY PO 06/25/18 11:15 07/06/18 08:43 Magnesium Sulfate 50 ml @ 25 mls/hr 1X ONCE IV 06/25/18 11:15 06/25/18 13:14 DC 06/25/18 12:07 Potassium Chloride (Klor-Con) 40 meq 1X ONCE PO 06/26/18 07:45 06/26/18 07:50 DC 06/26/18 08:50 Clopidogrel Bisulfate (Plavix) 300 mg 1X ONCE PO 06/26/18 11:00 06/26/18 11:06 DC 06/26/18 13:10 Clopidogrel Bisulfate (Plavix) 75 mg DAILYWBKFT PO 06/27/18 08:00 07/06/18 08:42 Methylprednisolone Sodium Succinate (SOLU-Medrol 40MG VIAL) 40 mg Q8HRS IV 06/27/18 09:15 07/04/18 08:00 DC 07/04/18 06:14 Atorvastatin Calcium (Lipitor) 40 mg QHS PO 06/28/18 21:00 07/05/18 21:11 Heparin Sodium (Porcine) 5000 unit/Sodium Chloride 505 ml @ 505 mls/hr 1X ONCE IRR 06/29/18 06:00 06/29/18 06:59 DC Cefazolin Sodium/ Dextrose 50 ml @ 100 mls/hr 1X PREOP PRN IV on hold OR 06/29/18 06:00 06/29/18 11:19 DC Ondansetron HCl (Zofran) 4 mg PRN Q6HRS PRN IV NAUSEA/VOMITING 06/29/18 07:00 06/30/18 06:59 DC Fentanyl Citrate (Fentanyl 2ml Vial) 25 mcg PRN Q5MIN PRN IV MILD PAIN 06/29/18 07:00 06/30/18 06:59 DC Fentanyl Citrate (Fentanyl 2ml Vial) 50 mcg PRN Q5MIN PRN IV MODERATE TO SEVERE PAIN 06/29/18 07:00 06/30/18 06:59 DC Morphine Sulfate (Morphine Sulfate) 1 mg PRN Q10MIN PRN IV SEVERE PAIN 06/29/18 07:00 06/30/18 06:59 DC Ringer's Solution 1,000 ml @ 30 mls/hr Q24H IV 06/29/18 07:00 06/29/18 18:59 DC 06/29/18 10:12 Lidocaine HCl (Xylocaine-Mpf 1% 2ml Vial) 2 ml PRN 1X PRN ID PRIOR TO IV START 06/29/18 07:00 06/30/18 06:59 DC Hydromorphone HCl (Dilaudid) 0.5 mg PRN Q10MIN PRN IV SEV PAIN, Second choice 06/29/18 07:00 06/30/18 06:59 DC Prochlorperazine Edisylate (Compazine) 5 mg PACU PRN PRN IV NAUSEA, MRX1 06/29/18 07:00 06/30/18 06:59 DC Bupivacaine HCl/ Epinephrine Bitart (Sensorcain-Mpf Epi 0.5%-1:[id number]) 30 ml STK-MED ONCE .ROUTE 06/29/18 05:59 06/29/18 06:59 DC Gelatin (Gelfoam Size 12-7mm) 1 each STK-MED ONCE .ROUTE 06/29/18 05:59 06/29/18 06:59 DC Iohexol (Omnipaque 300 Mg/ml) 100 ml STK-MED ONCE .ROUTE 06/29/18 05:59 06/29/18 07:00 DC Bupivacaine HCl (Sensorcaine Mpf 0.25%) 30 ml STK-MED ONCE .ROUTE 06/29/18 05:59 06/29/18 07:00 DC Papaverine HCl 60 mg STK-MED ONCE .ROUTE 06/29/18 06:00 06/29/18 07:01 DC Thrombin 20,000 unit STK-MED ONCE TP 06/29/18 06:00 06/29/18 07:01 DC Sodium Chloride (SODIUM CHLORIDE 20ml) 20 ml STK-MED ONCE IJ 06/29/18 09:46 06/29/18 09:47 DC Famotidine (Pepcid Vial) 20 mg STK-MED ONCE .ROUTE 06/29/18 09:46 06/29/18 09:47 DC Ondansetron HCl (Zofran) 4 mg STK-MED ONCE .ROUTE 06/29/18 09:46 06/29/18 09:47 DC Dexamethasone Sodium Phosphate (Decadron) 20 mg STK-MED ONCE .ROUTE 06/29/18 09:46 06/29/18 09:47 DC Lidocaine HCl (Lidocaine Pf 2% Vial) 5 ml STK-MED ONCE .ROUTE 06/29/18 09:46 06/29/18 09:47 DC Etomidate (Amidate) 20 mg STK-MED ONCE IV 06/29/18 09:46 06/29/18 09:47 DC Phenylephrine HCl (PHENYLEPHRINE in 0.9% NACL PF) 1 mg STK-MED ONCE IV 06/29/18 09:46 06/29/18 09:47 DC Fentanyl Citrate (Fentanyl 2ml Vial) 100 mcg STK-MED ONCE .ROUTE 06/29/18 09:47 06/29/18 09:48 DC Hydromorphone HCl (Dilaudid) 2 mg STK-MED ONCE .ROUTE 06/29/18 09:47 06/29/18 09:48 DC Glycopyrrolate (Robinul) 1 mg STK-MED ONCE .ROUTE 06/29/18 09:47 06/29/18 09:48 DC Rocuronium [place] (Zemuron) 100 mg STK-MED ONCE .ROUTE 06/29/18 09:47 06/29/18 09:48 DC Neostigmine Methylsulfate (Neostigmine Methylsulfate) 5 mg STK-MED ONCE .ROUTE 06/29/18 09:47 06/29/18 09:48 DC Albumin Human 0 ml @ As Directed STK-MED ONCE IV 06/29/18 09:48 06/29/18 09:49 DC Iodixanol (Visipaque 320) 100 ml STK-MED ONCE .ROUTE 06/29/18 10:11 06/29/18 10:12 DC Lidocaine HCl (Lidocaine 1% 20ml Vial) 20 ml STK-MED ONCE .ROUTE 06/29/18 10:11 06/29/18 10:12 DC Iodixanol (Visipaque 320) 50 ml STK-MED ONCE .ROUTE 06/29/18 10:11 06/29/18 10:12 DC Heparin Sodium/ Sodium Chloride 1,000 ml @ As Directed STK-MED ONCE .ROUTE 06/29/18 10:11 06/29/18 10:12 DC Bupivacaine HCl (Sensorcaine Mpf 0.5%) 30 ml STK-MED ONCE .ROUTE 06/29/18 09:59 06/29/18 10:59 DC 06/29/18 12:42 Bacitracin (Bacitracin) 50,000 unit STK-MED ONCE IRR 06/29/18 10:00 06/29/18 11:00 DC Vancomycin HCl 250 ml @ 250 mls/hr 1X ONCE IV 06/29/18 11:15 06/29/18 12:14 DC 06/29/18 11:15 Heparin Sodium (Porcine) (Heparin Sodium) 10,000 unit STK-MED ONCE .ROUTE 06/29/18 11:49 06/29/18 11:50 DC Cellulose (Surgicel Fibrillar 1x2) 1 each STK-MED ONCE .ROUTE 06/29/18 11:50 06/29/18 11:51 DC Phenylephrine HCl (Justin-Synephrine Inj) 10 mg STK-MED ONCE .ROUTE 06/29/18 11:57 06/29/18 11:58 DC Sevoflurane (Ultane) 90 ml STK-MED ONCE IH 06/29/18 12:07 06/29/18 12:08 DC Heparin Sodium/ Sodium Chloride 500 ml @ As Directed STK-MED ONCE .ROUTE 06/29/18 12:35 06/29/18 12:36 DC Iodixanol (Visipaque 320) 100 ml STK-MED ONCE .ROUTE 06/29/18 12:52 06/29/18 12:53 DC Iodixanol (Visipaque 320) 100 ml STK-MED ONCE .ROUTE 06/29/18 13:17 06/29/18 13:18 DC Lidocaine HCl (Lidocaine 1% 20ml Vial) 20 ml STK-MED ONCE .ROUTE 06/29/18 13:17 06/29/18 13:18 DC Heparin Sodium/ Sodium Chloride 1,000 ml @ As Directed STK-MED ONCE .ROUTE 06/29/18 13:18 06/29/18 13:19 DC Heparin Sodium (Porcine) (Heparin Sodium) 10,000 unit STK-MED ONCE .ROUTE 06/29/18 13:19 06/29/18 13:20 DC Heparin Sodium/ Sodium Chloride (HEPARIN for ARTERIAL LINE FLUSH) 1,000 unit 1X ONCE IART 06/29/18 14:15 06/29/18 14:16 DC 06/29/18 14:15 Heparin Sodium/ Sodium Chloride (HEPARIN for ARTERIAL LINE FLUSH) 1,000 unit 1X ONCE IART 06/29/18 14:15 06/29/18 14:16 DC 06/29/18 14:15 Heparin Sodium (Porcine) (Heparin Sodium) 4,000 unit 1X ONCE IV 06/29/18 14:15 06/29/18 14:16 DC 06/29/18 14:15 Iodixanol (Visipaque 320) 100 ml 1X ONCE IART 06/29/18 14:30 06/29/18 14:31 DC 06/29/18 14:30 Heparin Sodium/ Sodium Chloride 500 ml @ As Directed STK-MED ONCE .ROUTE 06/29/18 14:35 06/29/18 14:36 DC Nitroglycerin (Nitroglycerin) 200 mcg 1X ONCE IART 06/29/18 15:30 06/29/18 15:31 DC 06/29/18 15:30 Iodixanol (Visipaque 320) 100 ml STK-MED ONCE .ROUTE 06/29/18 15:51 06/29/18 15:52 DC Iodixanol (Visipaque 320) 100 ml STK-MED ONCE .ROUTE 06/29/18 16:52 06/29/18 16:53 DC Aspirin (Aspirin) 300 mg 1X ONCE [place] 06/29/18 17:30 06/29/18 17:31 DC 06/29/18 18:18 Clopidogrel Bisulfate (Plavix) 300 mg 1X ONCE PO 06/29/18 17:30 06/29/18 17:31 DC 06/29/18 18:18 Fentanyl Citrate 30 ml @ 0 mls/hr CONT PRN IV SEE PROTOCOL 06/29/18 17:30 07/02/18 15:47 DC 07/01/18 04:49 Fentanyl Citrate (Fentanyl 2ml Vial) 25 mcg PRN Q1HR PRN IV SEE COMMENTS 06/29/18 17:30 07/01/18 14:48 Fentanyl Citrate (Fentanyl 2ml Vial) 50 mcg PRN Q1HR PRN IV SEE COMMENTS 06/29/18 17:30 Chlorhexidine Gluconate (Peridex) 15 ml BID MM 06/29/18 21:00 07/03/18 10:29 DC 07/02/18 21:47 Morphine Sulfate (Morphine Sulfate) 2 mg PRN Q1HR PRN IV SEE COMMENTS. 06/29/18 17:30 Morphine Sulfate (Morphine Sulfate) 4 mg PRN Q1HR PRN IV SEE COMMENTS. 06/29/18 17:30 Midazolam HCl 100 ml @ 0 mls/hr CONT PRN IV SEE PROTOCOL 06/29/18 17:30 07/04/18 08:07 DC 06/30/18 12:04 Vecuronium [place] (Norcuron Bolus) 6 mg PRN Q2HRS PRN IV ANXIETY / AGITATION 06/29/18 17:30 07/02/18 15:47 DC Heparin Sodium (Porcine) 5000 unit/Sodium Chloride 505 ml @ 505 mls/hr 1X ONCE IRR 06/29/18 19:30 06/29/18 20:30 DC 06/29/18 20:34 Iohexol (Omnipaque 300 Mg/ml) 100 ml STK-MED ONCE .ROUTE 06/29/18 18:16 06/29/18 19:17 DC Cellulose (Surgicel Fibrillar 1x2) 1 each STK-MED ONCE .ROUTE 06/29/18 19:17 06/29/18 19:18 DC Rocuronium [place] (Zemuron) 50 mg STK-MED ONCE .ROUTE 06/29/18 19:42 06/29/18 19:43 DC Vancomycin HCl 1 gm/Sodium Chloride 250 ml @ 250 mls/hr 1X ONCE IV 06/29/18 20:45 06/29/18 21:44 DC 06/29/18 20:34 Vancomycin HCl 250 ml @ 250 mls/hr 1X ONCE IV 06/29/18 20:45 06/29/18 21:44 UNV Hydrocortisone Sodium Succinate (Solu-CORTEF) 100 mg STK-MED ONCE .ROUTE 06/29/18 20:50 06/29/18 20:51 DC Heparin Sodium (Porcine) (Heparin Sodium) 10,000 unit STK-MED ONCE .ROUTE 06/29/18 21:01 06/29/18 21:02 DC Phenylephrine HCl (PHENYLEPHRINE in 0.9% NACL PF) 1 mg STK-MED ONCE IV 06/29/18 21:35 06/29/18 21:36 DC Sevoflurane (Ultane) 90 ml STK-MED ONCE IH 06/29/18 21:36 06/29/18 21:37 DC Protamine Sulfate (Protamine) 50 mg STK-MED ONCE IV 06/29/18 21:45 06/29/18 21:46 DC Cellulose (Surgicel Fibrillar 1x2) 1 each STK-MED ONCE TP 06/29/18 21:52 06/29/18 21:58 DC 06/29/18 21:52 Sodium Chloride 500 ml @ 500 mls/hr 1X ONCE IV 06/29/18 23:00 06/29/18 23:59 DC 06/29/18 23:47 Sodium Chloride 500 ml @ 500 mls/hr 1X ONCE IV 06/30/18 00:00 06/30/18 00:59 DC 06/30/18 00:27 Norepinephrine Bitartrate 250 ml @ 1.875 mls/ hr CONT PRN IV SEE I/O RECORD 06/29/18 23:45 07/04/18 08:07 DC 06/30/18 00:26 Rocuronium [place] (Zemuron) 50 mg STK-MED ONCE .ROUTE 06/29/18 12:00 06/30/18 08:09 DC Aspirin (Aspirin) 300 mg DAILY [place] 06/30/18 10:00 07/02/18 15:43 DC 07/02/18 08:47 Potassium Chloride (KCl Oral Soln) 40 meq DAILY PEG 06/30/18 10:00 07/02/18 15:43 DC 07/02/18 08:43 Cefazolin Sodium/ Dextrose (Ancef 2gm Premix) 2 gm STK-MED ONCE IV 06/29/18 11:00 06/30/18 12:24 DC Hydralazine HCl (Apresoline Inj) 10 mg PRN Q6HRS PRN IVP ELEVATED BP, SEE COMMENTS 06/30/18 14:00 UNV Albumin Human 100 ml @ 100 mls/hr 1X ONCE IV 06/30/18 19:15 06/30/18 20:14 DC 06/30/18 19:39 Phenylephrine HCl (PHENYLEPHRINE in 0.9% NACL PF) 0.1 mg 1X ONCE IV 06/30/18 19:15 06/30/18 19:16 DC 06/30/18 19:15 Aspirin (Ecotrin) 81 mg PRN DAILY PRN PO WHEN PO TOLERATED 07/01/18 10:45 07/02/18 15:43 DC Fentanyl Citrate (Fentanyl 2ml Vial) 25 mcg PRN Q1HR PRN IV SEE COMMENTS 07/01/18 13:30 07/02/18 09:04 DC Fentanyl Citrate (Fentanyl 2ml Vial) 50 mcg PRN Q1HR PRN IV SEE COMMENTS 07/01/18 13:30 07/02/18 09:04 DC Chlorhexidine Gluconate (Peridex) 15 ml BID MM 07/01/18 21:00 Cancel Dexmedetomidine HCl 200 mcg/ Sodium Chloride 50 ml @ 0 mls/hr CONT PRN IV PER PROTOCOL 07/01/18 13:30 07/04/18 08:07 DC 07/02/18 01:52 Sodium Chloride 500 ml @ 500 mls/hr 1X PRN PRN IV SEE COMMENTS 07/01/18 13:30 Atropine Sulfate (ATROPINE 0.5mg SYRINGE) 0.5 mg PRN Q5MIN PRN IV SEE COMMENTS 07/01/18 13:30 Furosemide (Lasix) 40 mg DAILY IV 07/02/18 09:00 07/06/18 12:59 DC 07/06/18 08:44 Aspirin (Ecotrin) 81 mg DAILY08 PO 07/03/18 08:00 07/06/18 08:44 Furosemide (Lasix) 40 mg 1X ONCE IVP 07/02/18 21:00 07/02/18 21:01 DC 07/02/18 21:30 Methylprednisolone Sodium Succinate (SOLU-Medrol 40MG VIAL) 40 mg Q12HR IV 07/04/18 21:00 07/06/18 08:45 Azithromycin (Zithromax) 500 mg 1X ONCE PO 07/04/18 09:00 07/04/18 09:01 DC 07/04/18 09:21 Azithromycin (Zithromax) 250 mg DAILY PO 07/05/18 09:00 07/06/18 08:44 Insulin Glargine (Lantus) 10 units QHS SQ 07/04/18 21:00 07/05/18 21:21 Insulin Human Lispro (HumaLOG) 3 units TIDAC SQ 07/04/18 11:30 07/06/18 12:35 Insulin Human Lispro (HumaLOG) 0-7 UNITS TIDWMEALS SQ 07/04/18 12:00 07/06/18 12:36 Dextrose (Dextrose 50%-Water Syringe) 12.5 gm PRN Q15MIN PRN IV SEE COMMENTS 07/04/18 08:30 07/04/18 13:13 DC Heparin Sodium/ Dextrose 500 ml @ 10 mls/hr CONT PRN IV SEE I/O RECORD 07/04/18 09:45 07/04/18 11:06 DC Enoxaparin Sodium (Lovenox 40mg Syringe) 40 mg Q24H SQ 07/05/18 09:00 Lorazepam (Ativan) 1 mg PRN Q8HRS PRN IV ANXIETY / AGITATION 07/05/18 08:00 07/05/18 08:44 Acetaminophen/ Hydrocodone Bitart (Lortab 5/325) 1 tab PRN Q4HRS PRN PO MODERATE - SEVERE PAIN 07/05/18 09:15 Metoprolol Tartrate (Lopressor) 25 mg Q6HRS PO 07/05/18 18:00 07/06/18 12:59 DC 07/06/18 06:25 Furosemide (Lasix) 40 mg 1X ONCE IVP 07/05/18 18:00 07/05/18 18:01 DC 07/05/18 18:13 Metoprolol Succinate (Toprol Xl) 100 mg DAILY PO 07/07/18 09:00 Torsemide (Demadex) 50 mg DAILY PO 07/07/18 09:00 Vital Signs Date Time Temp Pulse Resp B/P (MAP) Pulse Ox O2 Delivery O2 Flow Rate FiO2 07/06/18 11:55 95 Nasal Cannula 3.0 07/06/18 10:45 97.6 83 18 91/58 (69) 97.6 ROS: No Nausea, No Chest Pain, No Abdominal Pain, No Increase Cough General: Alert, Oriented X4, No acute distress HEENT: Other (nc at perrl nose throat clear neck, no lad no thyromegaly) Lungs: Wheezing, Other (decrease bs) Cardiovascular: S1, S2 Abdomen: Soft, Non-tender Neuro Exam: Alert Extremities: Other (trace edema ) Skin: Warm Labs Laboratory Tests Test 07/05/18 17:15 07/05/18 20:58 07/06/18 07:38 07/06/18 11:31 Glucose (Fingerstick) 152 mg/dL 126 mg/dL 155 mg/dL 183 mg/dL Current Medications Medications (Trade) Dose Ordered Sig/Segundo Route PRN Reason Start Time Stop Time Status Last Admin Dose Admin Furosemide (Lasix) 40 mg 1X ONCE IVP 06/18/18 14:00 06/18/18 14:47 DC 06/18/18 14:59 Aspirin (Children'S Aspirin) 324 mg 1X ONCE PO 06/18/18 14:00 06/18/18 14:47 DC 06/18/18 14:59 Potassium Chloride (KCl Oral Soln) 40 meq 1X ONCE PO 06/18/18 15:00 06/18/18 15:01 DC 06/18/18 14:59 Furosemide (Lasix) 40 mg DAILY IVP 06/19/18 09:00 06/19/18 09:00 DC Furosemide (Lasix) 40 mg [id number] IVP 06/19/18 09:00 06/19/18 09:00 DC Lisinopril (Prinivil) 2.5 mg DAILY PO 06/19/18 09:00 07/06/18 08:43 Furosemide (Lasix) 40 mg [id number] IV 06/18/18 16:00 07/01/18 17:45 DC 07/01/18 16:09 Spironolactone (Aldactone) 25 mg DAILY PO 06/19/18 09:00 07/06/18 08:43 Heparin Sodium (Porcine) (Heparin Sodium) 5,000 unit Q12HR SQ 06/18/18 16:00 07/04/18 09:35 DC 07/03/18 08:11 Sodium Chloride (Normal Saline Flush) 3 ml QSHIFT PRN IV AFTER MEDS AND BLOOD DRAWS 06/18/18 16:00 Ondansetron HCl (Zofran) 4 mg PRN Q4HRS PRN IV NAUSEA/VOMITING 06/18/18 16:00 Acetaminophen (Tylenol) 650 mg PRN Q4HRS PRN PO TEMP OVER 100.4F OR MILD PAIN 06/18/18 16:00 07/05/18 17:32 Sodium Monofluorophosphate (Fleet Adult) 133 ml PRN DAILY PRN [place] CONSTIPATION 06/18/18 16:00 Diphenhydramine HCl (Benadryl) 25 mg PRN Q4HRS PRN IVP ITCHING 06/18/18 16:00 06/28/18 20:56 Docusate Sodium (Colace) 100 mg PRN BID PRN PO CONSTIPATION 06/18/18 16:00 06/27/18 08:41 Albuterol Sulfate (Ventolin Neb Soln) 2.5 mg PRN Q4HRS PRN NEB SHORTNESS OF BREATH 06/18/18 16:00 Albuterol/ Ipratropium (Duoneb) 3 ml Q4HRS NEB 06/18/18 16:00 07/06/18 11:55 Aspirin (Ecotrin) 81 mg DAILY08 PO 06/19/18 08:00 07/01/18 10:41 DC 06/28/18 10:14 Levothyroxine Sodium (Synthroid) 88 mcg DAILY08 PO 06/19/18 08:00 07/06/18 08:44 Latanoprost (Xalatan) 1 drop QHS OU 06/18/18 21:00 07/05/18 21:11 Potassium Chloride (KCl Oral Soln) 40 meq 1X ONCE PO 06/19/18 13:00 06/19/18 13:01 DC 06/19/18 13:43 Insulin Glargine (Lantus) 5 units QHS SQ 06/19/18 21:00 07/04/18 08:31 DC 07/03/18 22:12 Insulin Human Lispro (HumaLOG) 0-5 UNITS TIDWMEALS SQ 06/19/18 12:30 07/04/18 08:31 DC 07/03/18 17:36 Dextrose (Dextrose 50%-Water Syringe) 12.5 gm PRN Q15MIN PRN IV SEE COMMENTS 06/19/18 12:15 Clindamycin Phosphate 50 ml @ 100 mls/hr Q8HRS IV 06/21/18 10:00 06/24/18 15:00 DC 06/24/18 14:17 Lactobacillus Rhamnosus (Culturelle) 1 cap BID PO 06/21/18 21:00 07/06/18 08:43 Milrinone Lactate/ Dextrose 100 ml @ 4.022 mls/ hr CONT PRN IV SEE I/O RECORD 06/22/18 13:00 07/05/18 16:24 DC 07/04/18 00:06 Iodixanol (Visipaque 320) 100 ml STK-MED ONCE .ROUTE 06/23/18 06:35 06/23/18 06:36 DC Lidocaine HCl (Lidocaine 1% 20ml Vial) 20 ml STK-MED ONCE .ROUTE 06/23/18 06:35 06/23/18 06:36 DC Heparin Sodium/ Sodium Chloride 1,500 ml @ As Directed STK-MED ONCE .ROUTE 06/23/18 06:35 06/23/18 06:36 DC Iodixanol (Visipaque 320) 100 ml STK-MED ONCE .ROUTE 06/23/18 07:26 06/23/18 07:27 DC Midazolam HCl (Versed) 2 mg STK-MED ONCE .ROUTE 06/23/18 07:30 06/23/18 07:31 DC Fentanyl Citrate (Fentanyl 2ml Vial) 100 mcg STK-MED ONCE .ROUTE 06/23/18 07:30 06/23/18 07:31 DC Verapamil HCl (Verapamil) 5 mg STK-MED ONCE .ROUTE 06/23/18 07:30 06/23/18 07:31 DC Heparin Sodium (Porcine) (Heparin Sodium) 10,000 unit STK-MED ONCE .ROUTE 06/23/18 07:30 06/23/18 07:31 DC Nitroglycerin (Nitroglycerin) 200 mcg STK-MED ONCE .ROUTE 06/23/18 07:30 06/23/18 07:31 DC Nitroglycerin (Nitroglycerin) 200 mcg 1X ONCE IART 06/23/18 08:15 06/23/18 08:18 DC 06/23/18 08:20 Verapamil HCl (Verapamil) 2.5 mg 1X ONCE IART 06/23/18 08:15 06/23/18 08:18 DC 06/23/18 08:22 Heparin Sodium (Porcine) (Heparin Sodium) 2,500 unit 1X ONCE IART 06/23/18 08:15 06/23/18 08:18 DC 06/23/18 08:23 Heparin Sodium/ Sodium Chloride (HEPARIN for ARTERIAL LINE FLUSH) 1,000 unit 1X ONCE IART 06/23/18 08:15 06/23/18 08:18 DC 06/23/18 08:20 Heparin Sodium/ Sodium Chloride (HEPARIN for ARTERIAL LINE FLUSH) 1,000 unit 1X ONCE IART 06/23/18 08:15 06/23/18 08:18 DC 06/23/18 08:20 Midazolam HCl (Versed) 1.5 mg 1X ONCE IV 06/23/18 08:15 06/23/18 08:18 DC 06/23/18 08:21 Fentanyl Citrate (Fentanyl 2ml Vial) 75 mcg 1X ONCE IV 06/23/18 08:15 06/23/18 08:18 DC 06/23/18 08:22 Iodixanol (Visipaque 320) 99 ml 1X ONCE IART 06/23/18 08:15 06/23/18 08:18 DC 06/23/18 08:20 Lidocaine HCl (Lidocaine 1% 20ml Vial) 1 ml 1X ONCE INJ 06/23/18 08:15 06/23/18 08:18 DC 06/23/18 08:20 Info (CONTRAST GIVEN -- Rx MONITORING) 1 each PRN DAILY PRN MC SEE COMMENTS 06/23/18 08:30 06/25/18 08:29 DC Sodium Chloride 250 ml @ 250 mls/hr 1X ONCE IV 06/23/18 11:15 06/23/18 12:14 DC 06/23/18 11:07 Furosemide (Lasix) 40 mg 1X ONCE IVP 06/23/18 20:15 06/23/18 20:19 DC 06/23/18 20:46 Magnesium Sulfate 50 ml @ 25 mls/hr 1X ONCE IV 06/24/18 12:30 06/24/18 14:29 DC 06/24/18 14:13 Potassium Chloride (Klor-Con) 40 meq 1X ONCE PO 06/24/18 12:30 06/24/18 12:31 DC 06/24/18 14:14 Clindamycin HCl (Cleocin) 300 mg QID PO 06/24/18 21:00 06/29/18 15:41 DC 06/28/18 20:56 Potassium Chloride (Klor-Con) 40 meq DAILY PO 06/25/18 11:15 07/06/18 08:43 Magnesium Sulfate 50 ml @ 25 mls/hr 1X ONCE IV 06/25/18 11:15 06/25/18 13:14 DC 06/25/18 12:07 Potassium Chloride (Klor-Con) 40 meq 1X ONCE PO 06/26/18 07:45 06/26/18 07:50 DC 06/26/18 08:50 Clopidogrel Bisulfate (Plavix) 300 mg 1X ONCE PO 06/26/18 11:00 06/26/18 11:06 DC 06/26/18 13:10 Clopidogrel Bisulfate (Plavix) 75 mg DAILYWBKFT PO 06/27/18 08:00 07/06/18 08:42 Methylprednisolone Sodium Succinate (SOLU-Medrol 40MG VIAL) 40 mg Q8HRS IV 06/27/18 09:15 07/04/18 08:00 DC 07/04/18 06:14 Atorvastatin Calcium (Lipitor) 40 mg QHS PO 06/28/18 21:00 07/05/18 21:11 Heparin Sodium (Porcine) 5000 unit/Sodium Chloride 505 ml @ 505 mls/hr 1X ONCE IRR 06/29/18 06:00 06/29/18 06:59 DC Cefazolin Sodium/ Dextrose 50 ml @ 100 mls/hr 1X PREOP PRN IV on hold OR 06/29/18 06:00 06/29/18 11:19 DC Ondansetron HCl (Zofran) 4 mg PRN Q6HRS PRN IV NAUSEA/VOMITING 06/29/18 07:00 06/30/18 06:59 DC Fentanyl Citrate (Fentanyl 2ml Vial) 25 mcg PRN Q5MIN PRN IV MILD PAIN 06/29/18 07:00 06/30/18 06:59 DC Fentanyl Citrate (Fentanyl 2ml Vial) 50 mcg PRN Q5MIN PRN IV MODERATE TO SEVERE PAIN 06/29/18 07:00 06/30/18 06:59 DC Morphine Sulfate (Morphine Sulfate) 1 mg PRN Q10MIN PRN IV SEVERE PAIN 06/29/18 07:00 06/30/18 06:59 DC Ringer's Solution 1,000 ml @ 30 mls/hr Q24H IV 06/29/18 07:00 06/29/18 18:59 DC 06/29/18 10:12 Lidocaine HCl (Xylocaine-Mpf 1% 2ml Vial) 2 ml PRN 1X PRN ID PRIOR TO IV START 06/29/18 07:00 06/30/18 06:59 DC Hydromorphone HCl (Dilaudid) 0.5 mg PRN Q10MIN PRN IV SEV PAIN, Second choice 06/29/18 07:00 06/30/18 06:59 DC Prochlorperazine Edisylate (Compazine) 5 mg PACU PRN PRN IV NAUSEA, MRX1 06/29/18 07:00 06/30/18 06:59 DC Bupivacaine HCl/ Epinephrine Bitart (Sensorcain-Mpf Epi 0.5%-1:[id number]) 30 ml STK-MED ONCE .ROUTE 06/29/18 05:59 06/29/18 06:59 DC Gelatin (Gelfoam Size 12-7mm) 1 each STK-MED ONCE .ROUTE 06/29/18 05:59 06/29/18 06:59 DC Iohexol (Omnipaque 300 Mg/ml) 100 ml STK-MED ONCE .ROUTE 06/29/18 05:59 06/29/18 07:00 DC Bupivacaine HCl (Sensorcaine Mpf 0.25%) 30 ml STK-MED ONCE .ROUTE 06/29/18 05:59 06/29/18 07:00 DC Papaverine HCl 60 mg STK-MED ONCE .ROUTE 06/29/18 06:00 06/29/18 07:01 DC Thrombin 20,000 unit STK-MED ONCE TP 06/29/18 06:00 06/29/18 07:01 DC Sodium Chloride (SODIUM CHLORIDE 20ml) 20 ml STK-MED ONCE IJ 06/29/18 09:46 06/29/18 09:47 DC Famotidine (Pepcid Vial) 20 mg STK-MED ONCE .ROUTE 06/29/18 09:46 06/29/18 09:47 DC Ondansetron HCl (Zofran) 4 mg STK-MED ONCE .ROUTE 06/29/18 09:46 06/29/18 09:47 DC Dexamethasone Sodium Phosphate (Decadron) 20 mg STK-MED ONCE .ROUTE 06/29/18 09:46 06/29/18 09:47 DC Lidocaine HCl (Lidocaine Pf 2% Vial) 5 ml STK-MED ONCE .ROUTE 06/29/18 09:46 06/29/18 09:47 DC Etomidate (Amidate) 20 mg STK-MED ONCE IV 06/29/18 09:46 06/29/18 09:47 DC Phenylephrine HCl (PHENYLEPHRINE in 0.9% NACL PF) 1 mg STK-MED ONCE IV 06/29/18 09:46 06/29/18 09:47 DC Fentanyl Citrate (Fentanyl 2ml Vial) 100 mcg STK-MED ONCE .ROUTE 06/29/18 09:47 06/29/18 09:48 DC Hydromorphone HCl (Dilaudid) 2 mg STK-MED ONCE .ROUTE 06/29/18 09:47 06/29/18 09:48 DC Glycopyrrolate (Robinul) 1 mg STK-MED ONCE .ROUTE 06/29/18 09:47 06/29/18 09:48 DC Rocuronium [place] (Zemuron) 100 mg STK-MED ONCE .ROUTE 06/29/18 09:47 06/29/18 09:48 DC Neostigmine Methylsulfate (Neostigmine Methylsulfate) 5 mg STK-MED ONCE .ROUTE 06/29/18 09:47 06/29/18 09:48 DC Albumin Human 0 ml @ As Directed STK-MED ONCE IV 06/29/18 09:48 06/29/18 09:49 DC Iodixanol (Visipaque 320) 100 ml STK-MED ONCE .ROUTE 06/29/18 10:11 06/29/18 10:12 DC Lidocaine HCl (Lidocaine 1% 20ml Vial) 20 ml STK-MED ONCE .ROUTE 06/29/18 10:11 06/29/18 10:12 DC Iodixanol (Visipaque 320) 50 ml STK-MED ONCE .ROUTE 06/29/18 10:11 06/29/18 10:12 DC Heparin Sodium/ Sodium Chloride 1,000 ml @ As Directed STK-MED ONCE .ROUTE 06/29/18 10:11 06/29/18 10:12 DC Bupivacaine HCl (Sensorcaine Mpf 0.5%) 30 ml STK-MED ONCE .ROUTE 06/29/18 09:59 06/29/18 10:59 DC 06/29/18 12:42 Bacitracin (Bacitracin) 50,000 unit STK-MED ONCE IRR 06/29/18 10:00 06/29/18 11:00 DC Vancomycin HCl 250 ml @ 250 mls/hr 1X ONCE IV 06/29/18 11:15 06/29/18 12:14 DC 06/29/18 11:15 Heparin Sodium (Porcine) (Heparin Sodium) 10,000 unit STK-MED ONCE .ROUTE 06/29/18 11:49 06/29/18 11:50 DC Cellulose (Surgicel Fibrillar 1x2) 1 each STK-MED ONCE .ROUTE 06/29/18 11:50 06/29/18 11:51 DC Phenylephrine HCl (Justin-Synephrine Inj) 10 mg STK-MED ONCE .ROUTE 06/29/18 11:57 06/29/18 11:58 DC Sevoflurane (Ultane) 90 ml STK-MED ONCE IH 06/29/18 12:07 06/29/18 12:08 DC Heparin Sodium/ Sodium Chloride 500 ml @ As Directed STK-MED ONCE .ROUTE 06/29/18 12:35 06/29/18 12:36 DC Iodixanol (Visipaque 320) 100 ml STK-MED ONCE .ROUTE 06/29/18 12:52 06/29/18 12:53 DC Iodixanol (Visipaque 320) 100 ml STK-MED ONCE .ROUTE 06/29/18 13:17 06/29/18 13:18 DC Lidocaine HCl (Lidocaine 1% 20ml Vial) 20 ml STK-MED ONCE .ROUTE 06/29/18 13:17 06/29/18 13:18 DC Heparin Sodium/ Sodium Chloride 1,000 ml @ As Directed STK-MED ONCE .ROUTE 06/29/18 13:18 06/29/18 13:19 DC Heparin Sodium (Porcine) (Heparin Sodium) 10,000 unit STK-MED ONCE .ROUTE 06/29/18 13:19 06/29/18 13:20 DC Heparin Sodium/ Sodium Chloride (HEPARIN for ARTERIAL LINE FLUSH) 1,000 unit 1X ONCE IART 06/29/18 14:15 06/29/18 14:16 DC 06/29/18 14:15 Heparin Sodium/ Sodium Chloride (HEPARIN for ARTERIAL LINE FLUSH) 1,000 unit 1X ONCE IART 06/29/18 14:15 06/29/18 14:16 DC 06/29/18 14:15 Heparin Sodium (Porcine) (Heparin Sodium) 4,000 unit 1X ONCE IV 06/29/18 14:15 06/29/18 14:16 DC 06/29/18 14:15 Iodixanol (Visipaque 320) 100 ml 1X ONCE IART 06/29/18 14:30 06/29/18 14:31 DC 06/29/18 14:30 Heparin Sodium/ Sodium Chloride 500 ml @ As Directed STK-MED ONCE .ROUTE 06/29/18 14:35 06/29/18 14:36 DC Nitroglycerin (Nitroglycerin) 200 mcg 1X ONCE IART 06/29/18 15:30 06/29/18 15:31 DC 06/29/18 15:30 Iodixanol (Visipaque 320) 100 ml STK-MED ONCE .ROUTE 06/29/18 15:51 06/29/18 15:52 DC Iodixanol (Visipaque 320) 100 ml STK-MED ONCE .ROUTE 06/29/18 16:52 06/29/18 16:53 DC Aspirin (Aspirin) 300 mg 1X ONCE [place] 06/29/18 17:30 06/29/18 17:31 DC 06/29/18 18:18 Clopidogrel Bisulfate (Plavix) 300 mg 1X ONCE PO 06/29/18 17:30 06/29/18 17:31 DC 06/29/18 18:18 Fentanyl Citrate 30 ml @ 0 mls/hr CONT PRN IV SEE PROTOCOL 06/29/18 17:30 07/02/18 15:47 DC 07/01/18 04:49 Fentanyl Citrate (Fentanyl 2ml Vial) 25 mcg PRN Q1HR PRN IV SEE COMMENTS 06/29/18 17:30 07/01/18 14:48 Fentanyl Citrate (Fentanyl 2ml Vial) 50 mcg PRN Q1HR PRN IV SEE COMMENTS 06/29/18 17:30 Chlorhexidine Gluconate (Peridex) 15 ml BID MM 06/29/18 21:00 07/03/18 10:29 DC 07/02/18 21:47 Morphine Sulfate (Morphine Sulfate) 2 mg PRN Q1HR PRN IV SEE COMMENTS. 06/29/18 17:30 Morphine Sulfate (Morphine Sulfate) 4 mg PRN Q1HR PRN IV SEE COMMENTS. 06/29/18 17:30 Midazolam HCl 100 ml @ 0 mls/hr CONT PRN IV SEE PROTOCOL 06/29/18 17:30 07/04/18 08:07 DC 06/30/18 12:04 Vecuronium [place] (Norcuron Bolus) 6 mg PRN Q2HRS PRN IV ANXIETY / AGITATION 06/29/18 17:30 07/02/18 15:47 DC Heparin Sodium (Porcine) 5000 unit/Sodium Chloride 505 ml @ 505 mls/hr 1X ONCE IRR 06/29/18 19:30 06/29/18 20:30 DC 06/29/18 20:34 Iohexol (Omnipaque 300 Mg/ml) 100 ml STK-MED ONCE .ROUTE 06/29/18 18:16 06/29/18 19:17 DC Cellulose (Surgicel Fibrillar 1x2) 1 each STK-MED ONCE .ROUTE 06/29/18 19:17 06/29/18 19:18 DC Rocuronium [place] (Zemuron) 50 mg STK-MED ONCE .ROUTE 06/29/18 19:42 06/29/18 19:43 DC Vancomycin HCl 1 gm/Sodium Chloride 250 ml @ 250 mls/hr 1X ONCE IV 06/29/18 20:45 06/29/18 21:44 DC 06/29/18 20:34 Vancomycin HCl 250 ml @ 250 mls/hr 1X ONCE IV 06/29/18 20:45 06/29/18 21:44 UNV Hydrocortisone Sodium Succinate (Solu-CORTEF) 100 mg STK-MED ONCE .ROUTE 06/29/18 20:50 06/29/18 20:51 DC Heparin Sodium (Porcine) (Heparin Sodium) 10,000 unit STK-MED ONCE .ROUTE 06/29/18 21:01 06/29/18 21:02 DC Phenylephrine HCl (PHENYLEPHRINE in 0.9% NACL PF) 1 mg STK-MED ONCE IV 06/29/18 21:35 06/29/18 21:36 DC Sevoflurane (Ultane) 90 ml STK-MED ONCE IH 06/29/18 21:36 06/29/18 21:37 DC Protamine Sulfate (Protamine) 50 mg STK-MED ONCE IV 06/29/18 21:45 06/29/18 21:46 DC Cellulose (Surgicel Fibrillar 1x2) 1 each STK-MED ONCE TP 06/29/18 21:52 06/29/18 21:58 DC 06/29/18 21:52 Sodium Chloride 500 ml @ 500 mls/hr 1X ONCE IV 06/29/18 23:00 06/29/18 23:59 DC 06/29/18 23:47 Sodium Chloride 500 ml @ 500 mls/hr 1X ONCE IV 06/30/18 00:00 06/30/18 00:59 DC 06/30/18 00:27 Norepinephrine Bitartrate 250 ml @ 1.875 mls/ hr CONT PRN IV SEE I/O RECORD 06/29/18 23:45 07/04/18 08:07 DC 06/30/18 00:26 Rocuronium [place] (Zemuron) 50 mg STK-MED ONCE .ROUTE 06/29/18 12:00 06/30/18 08:09 DC Aspirin (Aspirin) 300 mg DAILY FL 06/30/18 10:00 07/02/18 15:43 DC 07/02/18 08:47 Potassium Chloride (KCl Oral Soln) 40 meq DAILY PEG 06/30/18 10:00 07/02/18 15:43 DC 07/02/18 08:43 Cefazolin Sodium/ Dextrose (Ancef 2gm Premix) 2 gm STK-MED ONCE IV 06/29/18 11:00 06/30/18 12:24 DC Hydralazine HCl (Apresoline Inj) 10 mg PRN Q6HRS PRN IVP ELEVATED BP, SEE COMMENTS 06/30/18 14:00 UNV Albumin Human 100 ml @ 100 mls/hr 1X ONCE IV 06/30/18 19:15 06/30/18 20:14 DC 06/30/18 19:39 Phenylephrine HCl (PHENYLEPHRINE in 0.9% NACL PF) 0.1 mg 1X ONCE IV 06/30/18 19:15 06/30/18 19:16 DC 06/30/18 19:15 Aspirin (Ecotrin) 81 mg PRN DAILY PRN PO WHEN PO TOLERATED 07/01/18 10:45 07/02/18 15:43 DC Fentanyl Citrate (Fentanyl 2ml Vial) 25 mcg PRN Q1HR PRN IV SEE COMMENTS 07/01/18 13:30 07/02/18 09:04 DC Fentanyl Citrate (Fentanyl 2ml Vial) 50 mcg PRN Q1HR PRN IV SEE COMMENTS 07/01/18 13:30 07/02/18 09:04 DC Chlorhexidine Gluconate (Peridex) 15 ml BID MM 07/01/18 21:00 Cancel Dexmedetomidine HCl 200 mcg/ Sodium Chloride 50 ml @ 0 mls/hr CONT PRN IV PER PROTOCOL 07/01/18 13:30 07/04/18 08:07 DC 07/02/18 01:52 Sodium Chloride 500 ml @ 500 mls/hr 1X PRN PRN IV SEE COMMENTS 07/01/18 13:30 Atropine Sulfate (ATROPINE 0.5mg SYRINGE) 0.5 mg PRN Q5MIN PRN IV SEE COMMENTS 07/01/18 13:30 Furosemide (Lasix) 40 mg DAILY IV 07/02/18 09:00 07/06/18 12:59 DC 07/06/18 08:44 Aspirin (Ecotrin) 81 mg DAILY08 PO 07/03/18 08:00 07/06/18 08:44 Furosemide (Lasix) 40 mg 1X ONCE IVP 07/02/18 21:00 07/02/18 21:01 DC 07/02/18 21:30 Methylprednisolone Sodium Succinate (SOLU-Medrol 40MG VIAL) 40 mg Q12HR IV 07/04/18 21:00 07/06/18 08:45 Azithromycin (Zithromax) 500 mg 1X ONCE PO 07/04/18 09:00 07/04/18 09:01 DC 07/04/18 09:21 Azithromycin (Zithromax) 250 mg DAILY PO 07/05/18 09:00 07/06/18 08:44 Insulin Glargine (Lantus) 10 units QHS SQ 07/04/18 21:00 07/05/18 21:21 Insulin Human Lispro (HumaLOG) 3 units TIDAC SQ 07/04/18 11:30 07/06/18 12:35 Insulin Human Lispro (HumaLOG) 0-7 UNITS TIDWMEALS SQ 07/04/18 12:00 07/06/18 12:36 Dextrose (Dextrose 50%-Water Syringe) 12.5 gm PRN Q15MIN PRN IV SEE COMMENTS 07/04/18 08:30 07/04/18 13:13 DC Heparin Sodium/ Dextrose 500 ml @ 10 mls/hr CONT PRN IV SEE I/O RECORD 07/04/18 09:45 07/04/18 11:06 DC Enoxaparin Sodium (Lovenox 40mg Syringe) 40 mg Q24H SQ 07/05/18 09:00 Lorazepam (Ativan) 1 mg PRN Q8HRS PRN IV ANXIETY / AGITATION 07/05/18 08:00 07/05/18 08:44 Acetaminophen/ Hydrocodone Bitart (Lortab 5/325) 1 tab PRN Q4HRS PRN PO MODERATE - SEVERE PAIN 07/05/18 09:15 Metoprolol Tartrate (Lopressor) 25 mg Q6HRS PO 07/05/18 18:00 07/06/18 12:59 DC 07/06/18 06:25 Furosemide (Lasix) 40 mg 1X ONCE IVP 07/05/18 18:00 07/05/18 18:01 DC 07/05/18 18:13 Metoprolol Succinate (Toprol Xl) 100 mg DAILY PO 07/07/18 09:00 Torsemide (Demadex) 50 mg DAILY PO 07/07/18 09:00 Laboratory Tests Test 07/04/18 16:54 07/04/18 20:50 07/05/18 06:30 07/05/18 08:12 Glucose (Fingerstick) 211 mg/dL (70-99) 137 mg/dL (70-99) 197 mg/dL (70-99) 147 mg/dL (70-99) Test 07/05/18 11:38 07/05/18 17:15 07/05/18 20:58 07/06/18 07:38 Glucose (Fingerstick) 134 mg/dL (70-99) 152 mg/dL (70-99) 126 mg/dL (70-99) 155 mg/dL (70-99) Test 07/06/18 11:31 Glucose (Fingerstick) 183 mg/dL (70-99) Laboratory Tests Test 07/05/18 17:15 07/05/18 20:58 07/06/18 07:38 07/06/18 11:31 Glucose (Fingerstick) 152 mg/dL (70-99) 126 mg/dL (70-99) 155 mg/dL (70-99) 183 mg/dL (70-99) Medications Active Scripts Medications Dose Route/Sig Max Daily Dose Days Date Category Clindamycin Hcl 300 Mg Capsule 300 Mg PO QID 7 06/24/18 Rx Lasix (Furosemide) 40 Mg Tablet 40 Mg PO BID 14 06/24/18 Rx Aldactone (Spironolactone) 25 Mg Tablet 25 Mg PO DAILY MDD 1 06/24/18 Rx Lisinopril 5 Mg Tablet 2.5 Mg PO DAILY MDD 1 06/24/18 Rx Proair Hfa (Albuterol Sulfate) 8.5 Gm Hfa.aer.ad 2.5 Mg NEB PRN Q4HRS PRN MDD 1 06/24/18 Rx Aspir-Low (Aspirin) 81 Mg Tablet.dr 1 Tab PO DAILY 06/18/18 Reported Triamterene-Hctz 37.5-25 Mg Cp (Triamterene/Hydrochlorothiazid) 1 Each Capsule 1 Cap PO DAILY 06/18/18 Reported Synthroid (Levothyroxine Sodium) 88 Mcg Tablet 1 Tab PO DAILY 06/18/18 Reported Latanoprost 2.5 Ml Drops 1 Drop EACHEYE QHS 06/18/18 Reported Active Scripts Medications Dose Route/Sig Max Daily Dose Days Date Category Clindamycin Hcl 300 Mg Capsule 300 Mg PO QID 7 06/24/18 Rx Lasix (Furosemide) 40 Mg Tablet 40 Mg PO BID 14 06/24/18 Rx Aldactone (Spironolactone) 25 Mg Tablet 25 Mg PO DAILY MDD 1 06/24/18 Rx Lisinopril 5 Mg Tablet 2.5 Mg PO DAILY MDD 1 06/24/18 Rx Proair Hfa (Albuterol Sulfate) 8.5 Gm Hfa.aer.ad 2.5 Mg NEB PRN Q4HRS PRN MDD 1 06/24/18 Rx Aspir-Low (Aspirin) 81 Mg Tablet.dr 1 Tab PO DAILY 06/18/18 Reported Triamterene-Hctz 37.5-25 Mg Cp (Triamterene/Hydrochlorothiazid) 1 Each Capsule 1 Cap PO DAILY 06/18/18 Reported Synthroid (Levothyroxine Sodium) 88 Mcg Tablet 1 Tab PO DAILY 06/18/18 Reported Latanoprost 2.5 Ml Drops 1 Drop EACHEYE QHS 06/18/18 Reported Impression . Acute hypoxic respiratory failure Bilateral effusion Atelectasis Severe cardiomyopathy and severe diastolic dysfunction and secondary pulmonary hypertension. chronic obstructive pulmonary disease with [id number] tobacco history. Cardiogenic shock resolved with congestive heart failure. Plan . Acute hypoxic respiratory failure:improved * cont. bronchodilator * cont. supplemental oxygen Bilateral effusion:stable * cont. diuresis Atelectasis :improved * IS * OOB TID * planned to D/C to rehab Severe cardiomyopathy and severe diastolic dysfunction and secondary pulmonary hypertension. * ECHO on 06/21/18 * The left ventricular systolic function is severely impaired. The Ejection Fraction is 20-25%. There is global hypokinesis of the left ventricle. Transmitral Doppler flow pattern is Grade III-reversible restrictive diastolic dysfunction. * cardiology following appreciates recs chronic obstructive pulmonary disease with [id number] tobacco history. * cont. azithro for total of 5 days. * cont. steroids change to p.o. * supportive care as above Cardiogenic shock:resolved Plan to follow up in our office in 4- weeks Thank you BELEN MALDONADO MD Jul 06, 2018 13:54
[2018-07-06] MEDS ORDERED: METOPROLOL SUCC 24HR ER 100 MG TAB.ER.24H. PO SCH (14:32)
[2018-07-06 14:36] LABS: CALCIUM 9.1 mg/dL (8.5-10.1); GFR 54.5; POTASSIUM 4.7 mmol/L (3.5-5.1)
[2018-07-06 14:53] VITALS: BP 99/66
[2018-07-06 15:17] VITALS: BP 99/66
--- NOTE | 2018-07-06 16:45 | PDOC ---
NURA BELL WEALTH MANAGEMENT MANAGER 07/06/18 1645: CARDIO Progress Notes Date and Time Date of Service 07/06/2018 Time of Evaluation 1200 Subjective Subjective: No Chest Pain, No shortness of breath, No Palpitations, Other (working with rehab, increaing activity) Vitals Vitals Vital Signs Date Time Temp Pulse Resp B/P (MAP) Pulse Ox O2 Delivery O2 Flow Rate FiO2 07/06/18 15:37 95 Nasal Cannula 3.0 07/06/18 15:17 85 99/66 07/06/18 14:53 97.4 18 97.4 Weight Weight [ ] Input and Output Intake and Output Intake and Output 07/06/18 06:59 Intake Total 500 ml Output Total 3651 ml Balance -3151 ml Intake Oral 400 ml IV Total 100 ml Output Urine Total 3650 ml Stool Total 1 ml # Bowel Movements 1 Laboratory Labs Laboratory Tests Test 07/05/18 17:15 07/05/18 20:58 07/06/18 07:38 07/06/18 11:31 Glucose (Fingerstick) 152 mg/dL (70-99) 126 mg/dL (70-99) 155 mg/dL (70-99) 183 mg/dL (70-99) Test 07/06/18 14:10 Sodium Level 134 mmol/L (136-145) Potassium Level 4.7 mmol/L (3.5-5.1) Chloride Level 94 mmol/L (98-107) Carbon Dioxide Level 32 mmol/L (21-32) Anion Gap 8 (6-14) Blood Urea Nitrogen 23 mg/dL (7-20) Creatinine 1.0 mg/dL (0.6-1.0) Estimated GFR (Cockcroft-Gault) 54.5 Glucose Level 178 mg/dL (70-99) Calcium Level 9.1 mg/dL (8.5-10.1) Physical Exam HEENT: Neck Supple W Full Motion Chest: Symmetric LUNGS: Other (dimiished bases) Heart: S1S2, RRR (SR) Abdomen: Soft N/T Extremities: Other (1+ bilateral LE edmea. ) Neurology: alert, oriented, follow commands Assessment Assessment 1. 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 ICM LVEF 20-25% 3. CAD s/p PCI to LM/LAD 4. Severe PAD; s/p aorto/iliac stents and LCFA, SFA, and external iliac endart erectomy with patch. 5. COPD Recommendations Secondary prevention; ASA, Plavix, statin, ACEi, consider entresto as an outpti toprol. continue lasix therapy will transition to PO. Off milrinone, UOP is very good. Supportive care [facility] upon discharge Re-evaluate LVEF in 3 months with outpatient echo. smoking cessation ALYSSIA PASCUAL MD 07/06/18 1824: CARDIO Progress Notes Plan Plan Pt. seen and examined. Agree with above ADMISSIONS CLINICIAN note. Doing well with diuresis. Changed to oral. Ok to DC to rehab. close f/u in the office in 1 week. NURA BELL WEALTH MANAGEMENT MANAGER Jul 06, 2018 16:45 ALYSSIA PASCUAL MD Jul 06, 2018 18:24
--- NOTE | 2018-07-06 16:46 | NUR ---
SS following up with discharge planning. Authorization received from [place]. Pt will discharge today and go to [facility], ; fax [phone], between 1800 and 1830. Discharge orders phoned and faxed to [facility]. [facility] to provide transport. Pt and pt's RN notified.
[2018-07-06] MEDS ORDERED: TORS100T3 PO (17:59)
[2018-07-06] MEDS ORDERED: METO-247 PO (18:00)
--- NOTE | 2018-07-06 18:15 | NUR ---
Discharge Note: SHANEKA DAVIS [address] [place] [address] Discharge instructions and discharge home medications reviewed with Patient and a copy given. All questions have been answered and understanding verbalized. The following instructions and handouts were given: Coronary Angiography with stent, Coronary Angiography with stent after care, and Arteriogram after care [id number]. Discontinued lines and drains: 18 G IV in left forearm Patient discharged to [facility] with 3 L NC via [facility] transport.
[2018-07-07] MEDS ORDERED: predniSONE 10 MG TABLET PO SCH (09:00)
[2018-07-07] MEDS ORDERED: TORSEMIDE 20 MG TABLET. PO SCH (09:00)
== END 2018-07-06 18:27 | DRG 215 ==
LOC: ER 12:06 → 2 SOUTH 14:00 → 1 WEST ICU 06-29 11:35 → 2 NORTH 07-03 17:47
PROVIDERS: ADMIT Internal Medicine; ATTEND Internal Medicine
PROC: 4A023N7 Measurement of Cardiac Sampling and Pressure, Left Heart, Percutaneous Approach (ICD-10-PCS; 2018-06-23)
PROC: B2111ZZ Fluoroscopy of Multiple Coronary Arteries using Low Osmolar Contrast (ICD-10-PCS; 2018-06-23)
PROC: 5A1945Z Respiratory Ventilation, 24-96 Consecutive Hours (ICD-10-PCS; principal; 2018-07-01)
PROC: 0BH17EZ Insertion of Endotracheal Airway into Trachea, Via Natural or Artificial Opening (ICD-10-PCS; 2018-07-01)
PROC: 02HA3RZ Insertion of Short-term External Heart Assist System into Heart, Percutaneous Approach (ICD-10-PCS; 2018-07-01)
PROC: 5A0221D Assistance with Cardiac Output using Impeller Pump, Continuous (ICD-10-PCS; 2018-07-01)
PROC: 04CL0ZZ Extirpation of Matter from Left Femoral Artery, Open Approach (ICD-10-PCS; 2018-07-01)
PROC: 04CJ0ZZ Extirpation of Matter from Left External Iliac Artery, Open Approach (ICD-10-PCS; 2018-07-01)
PROC: 04UL0KZ Supplement Left Femoral Artery with Nonautologous Tissue Substitute, Open Approach (ICD-10-PCS; 2018-07-01)
PROC: 02HV33Z Insertion of Infusion Device into Superior Vena Cava, Percutaneous Approach (ICD-10-PCS; 2018-07-01)
PROC: B548ZZA Ultrasonography of Superior Vena Cava, Guidance (ICD-10-PCS; 2018-07-01)
PROC: 027235Z Dilation of Coronary Artery, Three Arteries with Two Drug-eluting Intraluminal Devices, Percutaneous Approach (ICD-10-PCS; 2018-07-01)
PROC: B4101ZZ Fluoroscopy of Abdominal Aorta using Low Osmolar Contrast (ICD-10-PCS; 2018-07-02)
DX: I13.0 Hypertensive heart and chronic kidney disease with heart failure and stage 1 through stage 4 chronic kidney disease, or unspecified chronic kidney disease (principal); J96.21 Acute and chronic respiratory failure with hypoxia; R57.0 Cardiogenic shock; I50.43 Acute on chronic combined systolic (congestive) and diastolic (congestive) heart failure; J44.1 Chronic obstructive pulmonary disease with (acute) exacerbation; E87.1 Hypo-osmolality and hyponatremia; E87.3 Alkalosis; I47.2 Ventricular tachycardia; J98.11 Atelectasis; I25.10 Atherosclerotic heart disease of native coronary artery without angina pectoris; B35.1 Tinea unguium; E03.9 Hypothyroidism, unspecified; E11.22 Type 2 diabetes mellitus with diabetic chronic kidney disease; E11.51 Type 2 diabetes mellitus with diabetic peripheral angiopathy without gangrene; E11.621 Type 2 diabetes mellitus with foot ulcer; E11.65 Type 2 diabetes mellitus with hyperglycemia; E66.01 Morbid (severe) obesity due to excess calories; E78.5 Hyperlipidemia, unspecified; E83.42 Hypomagnesemia; E87.6 Hypokalemia; F41.9 Anxiety disorder, unspecified; G47.33 Obstructive sleep apnea (adult) (pediatric); H54.7 Unspecified visual loss; I25.5 Ischemic cardiomyopathy; I70.202 Unspecified atherosclerosis of native arteries of extremities, left leg; I70.8 Atherosclerosis of other arteries; K59.00 Constipation, unspecified; L97.529 Non-pressure chronic ulcer of other part of left foot with unspecified severity; Z96.659 Presence of unspecified artificial knee joint; M19.90 Unspecified osteoarthritis, unspecified site; N18.2 Chronic kidney disease, stage 2 (mild); Z66 Do not resuscitate; Z68.38 Body mass index [BMI] 38.0-38.9, adult; Z79.02 Long term (current) use of antithrombotics/antiplatelets; Z79.4 Long term (current) use of insulin; Z79.82 Long term (current) use of aspirin; Z79.890 Hormone replacement therapy; Z79.899 Other long term (current) drug therapy; Z82.3 Family history of stroke; Z82.49 Family history of ischemic heart disease and other diseases of the circulatory system; Z95.5 Presence of coronary angioplasty implant and graft; Z87.891 Personal history of nicotine dependence; Z88.0 Allergy status to penicillin; I27.20 Pulmonary hypertension, unspecified
CPT/HCPCS: 33991; 92928; 93458; 93567; 99285; G0269; 36415; 36556; 36600; 37221; 37223; 37236; 71045; 71046; 71250; 75625; 75756; 76937; 80048; 80053; 80061; 80069; 81001; 82805; 82962; 83036; 83735; 83880; 84439; 84443; 84481; 84484; 85007; 85025; 85027; 85049; 85347; 85520; 85610; 85651; 86850; 86900; 86901; 86920; 93005; 93306; 93925; 94002; 94003; 94640; 94760; 96374; 99152; 99153; C1713; C1725; C1760; C1769; C1874; C1887; C1892; C1894; G0238; J0696; J1100; J1170; J1200; J1644; J1720; J1815; J1940; J2001; J2060; J2250; J2260; J2370; J2405; J2440; J2710; J2920; J3010; J3370; J3475; J3490; J7030; J7040; J7050; J7120; J7620; P9045; P9046; Q0144; Q9967; 97110; 97116; 97530; 97535; C1771

== ENCOUNTER 2018-07-23 19:51 | Inpatient (IN) | payer OTHER, MEDICAID ==
[~2018-07-23] VITALS: Ht 167.6 cm; Wt 77.3 kg
[~2018-07-23 19:51] MED LIST: ALBU2.5V8 NEB; ASPI81TA50 PO; CLIN300C8 PO; EPINEPHrine SYRINGE 1 MG/10 ML SYRINGE ONE; FURO-68 PO; LATA2.5D3 EACHEYE; LEVO88TA2 PO; LISI-338 PO; METO-247 PO; SODIUM BICARB ADULT 8.4% 50 MEQ/50 ML DISP.SYRIN. ONE; SPIR25TA PO; TORS100T3 PO; TRIA1CAP3 PO
--- NOTE | 2018-07-23 20:08 | PHYS DOC ---
Past Medical History Past Medical History: CHF, COPD Past Surgical History: Cholecystectomy, Other Additional Past Surgical Histo: BACK, ANKLE Alcohol Use: None Drug Use: None Adult General Chief Complaint Chief Complaint: Confusion, abnormal labs. [facility] Patient is a 73-year-old female who has history of congestive heart failure, history of cardiomyopathy and history of chronic obstructive airway disease, CAD, [facility]. The patient has [id number]-pdff tobacco history. She was brought into the hospital with increasing shortness of breath last month. Patient was seen by Cardiology and a cardiac catheterization was performed and she had severely elevated left-sided filling pressures consistent with decompensated systolic and diastolic heart failure. Her LVEDP was 35. She had severe telida 3-vessel coronary artery disease. She was considered high risk for CABG. The patient underwent interventional procedure by Cardiology on 06/29/2018. She had successful PCI of the left main and LAD with implantation of overlapping drug-eluting stents in the left main. Patient was also seen by Vascular Surgery because of the occlusion of the left common femoral artery following cardiac catheterization and limb threatening ischemia. She underwent left common femoral, external iliac and superficial femoral artery endarterectomy and bovine patch angioplasty. [facility]. [facility] the [facility] because she has been confused. They checked her labs and it was abnormal. She also said she fell 4 days ago, having pelvic pain and lower back pain. Patient denied any chest pain. Patient is a very poor historian, not very cooperative with examination. Review of Systems Review of Systems Constitutional: Denies fever or chills [] Eyes: Denies change in visual acuity, redness, or eye pain [] HENT: Denies nasal congestion or sore throat [] Respiratory: Denies cough or shortness of breath [] Cardiovascular: No additional information not addressed in [facility] [] GI: Denies abdominal pain, nausea, vomiting, bloody stools or diarrhea [] : Denies dysuria or hematuria [] Musculoskeletal: Positive for back pain and pelvic pain. Integument: Denies rash or skin lesions [] Neurologic: Denies headache, focal weakness or sensory changes [] Endocrine: Denies polyuria or polydipsia [] All other systems were reviewed and found to be within normal limits, except as documented in this note. Current Medications Current Medications Current Medications Medications (Trade) Dose Ordered Sig/Segundo Start Time Stop Time Status Last Admin Dose Admin Morphine Sulfate (Morphine Sulfate) 4 mg STK-MED ONCE 07/23/18 21:23 07/23/18 21:24 DC Sodium Chloride 1,000 ml @ 1,000 mls/hr 1X ONCE 07/23/18 21:00 07/23/18 21:59 DC 07/23/18 21:03 1,000 MLS/HR Allergies Allergies Allergies Coded Allergies Type Severity Reaction Last Updated Verified Penicillins Allergy Intermediate 06/29/18 Yes Physical Exam Physical Exam Constitutional: Well developed, well nourished, in mild distress due to pain. HENT: Normocephalic, atraumatic, bilateral external ears normal, oropharynx moist, no oral exudates, nose normal. [] Eyes: PERRLA, EOMI, conjunctiva normal, no discharge. [] Neck: Normal range of motion, no tenderness, supple, no stridor. [] Cardiovascular:Heart rate regular rhythm, no murmur [] Lungs & Thorax: Bilateral breath sounds with expiratory wheezing. Abdomen: Bowel sounds normal, soft, no tenderness, no masses, no pulsatile masses. [] Skin: Warm, dry, no erythema, no rash. [] Back: No tenderness, no CVA tenderness. There is a large tender lipoma on midline of thoracic area with foul odor and large amount of dark cheesy material being expressed out of the wound. Extremities: No tenderness, no cyanosis, no clubbing, ROM intact, bilateral hips tender to palpation. There is a wound on left groin area with tish in place, no active drainage. Neurologic: Alert but disoriented to time, place and person, normal motor function, normal sensory function, no focal deficits noted. [] Psychologic: Affect normal, judgement normal, mood normal. Patient appeared agitated. Current Patient Data Vital Signs Vital Signs Date Time Temp Pulse Resp B/P (MAP) Pulse Ox O2 Delivery O2 Flow Rate FiO2 07/23/18 20:10 97.9 117 18 128/86 (100) 98 Nasal Cannula 3.0 97.9 Lab Values Laboratory Tests Test 07/23/18 20:15 White Blood Count 6.9 x10^3/uL (4.0-11.0) Red Blood Count 4.22 x10^6/uL (3.50-5.40) Hemoglobin 12.3 g/dL (12.0-15.5) Hematocrit 36.4 % (36.0-47.0) Mean Corpuscular Volume 86 fL (79-100) Mean Corpuscular Hemoglobin 29 pg (25-35) Mean Corpuscular Hemoglobin Concent 34 g/dL (31-37) Red Cell Distribution Width 17.4 % (11.5-14.5) H Platelet Count 118 x10^3/uL (140-400) L Neutrophils (%) (Auto) 87 % (31-73) H Lymphocytes (%) (Auto) 7 % (24-48) L Monocytes (%) (Auto) 5 % (0-9) Eosinophils (%) (Auto) 0 % (0-3) Basophils (%) (Auto) 0 % (0-3) Neutrophils # (Auto) 6.1 x10^3uL (1.8-7.7) Lymphocytes # (Auto) 0.5 x10^3/uL (1.0-4.8) L Monocytes # (Auto) 0.3 x10^3/uL (0.0-1.1) Eosinophils # (Auto) 0.0 x10^3/uL (0.0-0.7) Basophils # (Auto) 0.0 x10^3/uL (0.0-0.2) Segmented Neutrophils % 82 % (35-66) H Band Neutrophils % 8 % (0-9) Lymphocytes % 7 % (24-48) L Monocytes % 3 % (0-10) Toxic Granulation Slight Toxic Vacuolation Slight Platelet Estimate Adequate (ADEQUATE) Anisocytosis Slight Prothrombin Time 14.0 SEC (11.7-14.0) Prothrombin Time INR 1.1 (0.8-1.1) PTT 28 SEC (24-38) Urine Collection Type U cath Urine Color Yellow Urine Clarity Clear Urine pH 5.0 Urine Specific [place] 1.020 Urine Protein 30 mg/dL (NEG-TRACE) Urine Glucose (UA) >=1000 mg/dL (NEG) Urine Ketones (Stick) Negative mg/dL (NEG) Urine Blood Negative (NEG) Urine Nitrite Negative (NEG) Urine Bilirubin Negative (NEG) Urine Urobilinogen Dipstick 0.2 mg/dL (0.2 mg/dL) Urine Leukocyte Esterase Negative (NEG) Urine RBC 0 /HPF (0-2) Urine WBC Occ /HPF (0-4) Urine Squamous Epithelial Cells Few /LPF Urine Transitional Epithelial Cells Occ /LPF Urine Amorphous Sediment Present /HPF Urine Bacteria 0 /HPF (0-FEW) Urine Hyaline Casts Moderate /HPF Urine Mucus Mod /LPF Urine Yeast Present /HPF Sodium Level 121 mmol/L (136-145) L Potassium Level 5.2 mmol/L (3.5-5.1) H Chloride Level 83 mmol/L (98-107) L Carbon Dioxide Level 27 mmol/L (21-32) Anion Gap 11 (6-14) Blood Urea Nitrogen 75 mg/dL (7-20) H Creatinine 2.0 mg/dL (0.6-1.0) H Estimated GFR (Cockcroft-Gault) 24.5 BUN/Creatinine Ratio 38 (6-20) H Glucose Level 403 mg/dL (70-99) H Calcium Level 10.1 mg/dL (8.5-10.1) Magnesium Level 2.6 mg/dL (1.8-2.4) H Total Bilirubin 1.3 mg/dL (0.2-1.0) H Aspartate Amino Transferase (AST) 30 U/L (15-37) Alanine Aminotransferase (ALT) 60 U/L (14-59) H Alkaline Phosphatase 378 U/L (46-116) H Ammonia < 10 mcmol/L (11-34) L Creatine Kinase 23 U/L (26-192) L Creatine Kinase MB (Mass) 1.1 ng/mL (0.0-3.6) Creatine Kinase MB Relative Index % (0-4) Troponin I Quantitative 0.945 ng/mL (0.000-0.055) VZ-Sjh-[id number]-Type Natriuretic Peptide > 21400 pg/mL (0-124) H Total Protein 8.0 g/dL (6.4-8.2) Albumin 2.7 g/dL (3.4-5.0) L Albumin/Globulin Ratio 0.5 (1.0-1.7) L Lipase 99 U/L (73-393) Laboratory Tests 07/23/18 20:15 Laboratory Tests 07/23/18 20:15 EKG EKG EKG WAS READ BY THIS PHYSICIAN AT 2020, SINUS TACHYCARDIA, RATE OF 115 BPM, NO STEMI. [] Radiology/Procedures Radiology/Procedures [][facility] [address] [place] [address] IMAGING REPORT Signed PATIENT: SHANEKA DAVIS ACCOUNT: [id number] : 1945 LOCATION: ER AGE: 73 SEX: F EXAM STATUS: REG ER ORD. PHYSICIAN: KIRA BURGER DO REASON: fell, headache, neck pain, confusion PROCEDURE: CT HEAD AND CERVICAL SPINE WO CT brain without contrast, CT cervical spine without contrast. HISTORY: Fell, headache, neck pain, confusion CT brain CT scan of brain was done without contrast. A skull fracture is not identified. Sinuses are clear. There is no intracranial hemorrhage or subdural hematoma. There is mild atrophy. Ventricles are normal in size. There is no mass or shift of the midline. IMPRESSION: 1. No intracranial hemorrhage or acute finding noted. End impression CT cervical spine Axial CT images were obtained to the cervical spine. Sagittal and coronal reconstructed images were reviewed. There is extensive carotid artery calcification at the carotid bifurcations. Thyroid is homogeneous. An acute C-spine fracture is not identified. There is degenerative disc disease and spurring at multiple levels. IMPRESSION: 1. No acute fracture noted in the cervical spine. PQRS Compliance Statement: One or more of the following individualized dose reduction techniques were utilized for this examination: 1. Automated exposure control 2. Adjustment of the mA and/or kV according to patient size 3. Use of iterative reconstruction technique Electronically signed by: Jayson Schuler MD (07/23/2018 9:55 PM) [facility] [address] [place] [address] IMAGING REPORT Signed PATIENT: SHANEKA DAVIS ACCOUNT: [id number] : 1945 LOCATION: ER AGE: 73 SEX: F EXAM STATUS: REG ER ORD. PHYSICIAN: KIRA BURGER DO REASON: Trauma, fall. pain on hips and lower back PROCEDURE: LUMBAR SPINE 2-3V EXAM: Pelvis and bilateral hips, 5 views; lumbar spine, 3 views. HISTORY: Pain. COMPARISON: None. FINDINGS: Pelvis and bilateral hips: There is no fracture, dislocation or subluxation. There is metallic clips overlying the left apical region, likely due to prior catheterization. There is minimal marginal femoral head spurring. There is a bump at the right femoral head-neck junction, a finding which can be seen with chronic impingement. Lumbar spine: 3 views lumbar spine are obtained. There are suspected hypoplastic T12 ribs and 5 nonrib-bearing lumbar vertebral segments. There is mild lumbar dextrocurvature. There is minimal grade 1 anterolisthesis of L4 and L5. There is degenerative endplate remodeling with disc space narrowing and facet arthropathy predominantly at L5-S1, and to a lesser extent, L3-L4. There are vascular stents overlying the aorta. There are surgical clips within the right upper quadrant. There are calcifications overlying the left upper quadrant which appear to be vascular rather than due to nephrolithiasis. IMPRESSION: 1. No acute osseous finding. 2. Minimal bilateral hip osteoarthritis. There is suggestion of slight chronic right hip impingement. 3. Multilevel degenerative change involving the lumbar spine, primarily at the lumbosacral junction. 4. Minimal grade 1 anterolisthesis of L4 and L5. Electronically signed by: Juanita Pena MD (07/23/2018 9:38 PM) [facility] DICTATED and SIGNED BY: JUANITA PENA MD DATE: 07/23/182137 Course & Med Decision Making Course & Med Decision Making Pertinent Labs and Imaging studies reviewed. (See chart for details) Patient was in lot of pain in her back. She was given 4 mg of morphine iv, her pain was gone but her blood pressure was dropped to 75/45. She was given 1.5 L of NS total. She was sleeping, in no acute distress then. Patient will be admitted to ICU, discussed with Dr. Urena. Katharine Disclaimer Katharine Disclaimer This electronic medical record was generated, in whole or in part, using a voice recognition dictation system. Departure Departure Impression: Primary Impression: Hyponatremia Additional Impressions: Dehydration CAD (coronary artery disease) CHF (congestive heart failure) Disposition: ADMITTED INPATIENT Admitting Physician: Jordy Milligan Condition: STABLE Referrals: NO PCP (PCP) Problem Qualifiers KIRA BURGER DO July 23, 2018 20:08
[2018-07-23 20:28] LABS: BASO % 0 % (0-3); EOS % 0 % (0-3); HEMATOCRIT 36.4 % (36.0-47.0); HEMOGLOBIN 12.3 g/dL (12.0-15.5); LYMPH # 0.5 x10^3/uL (1.0-4.8); LYMPH % 7 % (24-48); MEAN CORPUSCULAR HEMOGLOBIN 29 pg (25-35); MEAN CORPUSCULAR HGB CONC 34 g/dL (31-37); MEAN CORPUSCULAR VOLUME 86 fL (79-100); MONO # 0.3 x10^3/uL (0.0-1.1); MONO % 5 % (0-9); NEUT # 6.1 x10^3uL (1.8-7.7); NEUT % 87 % (31-73); PLATELET COUNT 118 x10^3/uL (140-400); RED BLOOD COUNT 4.22 x10^6/uL (3.50-5.40); RED CELL DISTRIBUTION WIDTH 17.4 % (11.5-14.5); WHITE BLOOD COUNT 6.9 x10^3/uL (4.0-11.0)
[2018-07-23 20:29] LABS: BILIRUBIN,URINE NEGATIVE (NEG); CLARITY,URINE CLEAR; COLOR,URINE YELLOW; NITRITE,URINE NEGATIVE (NEG); PROTEIN,URINE 30 mg/dL (NEG-TRACE); UROBILINOGEN,URINE 0.2 mg/dL (0.2 mg/dL)
[2018-07-23 20:33] LABS: BACTERIA,URINE 0 /HPF (0-FEW); RBC,URINE 0 /HPF (0-2); WBC,URINE OCC /HPF (0-4)
[2018-07-23 20:34] LABS: AMORPHOUS SEDIMENT,UR PRESENT /HPF; HYALINE CASTS, URINE MODERATE /HPF; SQUAMOUS EPITHELIAL CELL,UR FEW /LPF; YEAST,URINE PRESENT /HPF
[2018-07-23 20:35] LABS: CALCIUM 10.1 mg/dL (8.5-10.1); GFR 24.5; POTASSIUM 5.2 mmol/L (3.5-5.1)
[2018-07-23 20:42] LABS: ALBUMIN 2.7 g/dL (3.4-5.0); ALBUMIN/GLOBULIN RATIO 0.5 (1.0-1.7); MAGNESIUM 2.6 mg/dL (1.8-2.4); TOTAL BILIRUBIN 1.3 mg/dL (0.2-1.0)
[2018-07-23 20:50] LABS: CREATINE KINASE 23 U/L (26-192)
[2018-07-23 21:00] LABS: % BANDS 8 % (0-9); % LYMPHS 7 % (24-48); % MONOS 3 % (0-10); % SEGS 82 % (35-66); PLT ESTIMATE ADEQUATE (ADEQUATE)
[2018-07-23] MEDS ORDERED: IV NORMAL SALINE 1000ML BAG 1,000 ML IV ONE ×2 (21:00→23:00)
[2018-07-23 21:01] LABS: ANISOCYTOSIS SLIGHT; TOXIC GRANULATION SLIGHT; TOXIC VACUOLATION SLIGHT
[2018-07-23] MEDS ORDERED: MORPHINE SULFATE 4 MG/ML VIAL. ONE (21:23)
--- NOTE | 2018-07-23 21:41 | RAD ---
EXAM: Pelvis and bilateral hips, 5 views; lumbar spine, 3 views. HISTORY: Pain. COMPARISON: None. FINDINGS: Pelvis and bilateral hips: There is no fracture, dislocation or subluxation. There is metallic clips overlying the left apical region, likely due to prior catheterization. There is minimal marginal femoral head spurring. There is a bump at the right femoral head-neck junction, a finding which can be seen with chronic impingement. Lumbar spine: 3 views lumbar spine are obtained. There are suspected hypoplastic T12 ribs and 5 nonrib-bearing lumbar vertebral segments. There is mild lumbar dextrocurvature. There is minimal grade 1 anterolisthesis of L4 and L5. There is degenerative endplate remodeling with disc space narrowing and facet arthropathy predominantly at L5-S1, and to a lesser extent, L3-L4. There are vascular stents overlying the aorta. There are surgical clips within the right upper quadrant. There are calcifications overlying the left upper quadrant which appear to be vascular rather than due to nephrolithiasis. IMPRESSION: 1. No acute osseous finding. 2. Minimal bilateral hip osteoarthritis. There is suggestion of slight chronic right hip impingement. 3. Multilevel degenerative change involving the lumbar spine, primarily at the lumbosacral junction. 4. Minimal grade 1 anterolisthesis of L4 and L5. Electronically signed by: Juanita James MD (07/23/2018 9:38 PM) [facility]
--- NOTE | 2018-07-23 21:58 | RAD ---
CT brain without contrast, CT cervical spine without contrast. HISTORY: Fell, headache, neck pain, confusion CT brain CT scan of brain was done without contrast. A skull fracture is not identified. Sinuses are clear. There is no intracranial hemorrhage or subdural hematoma. There is mild atrophy. Ventricles are normal in size. There is no mass or shift of the midline. IMPRESSION: 1. No intracranial hemorrhage or acute finding noted. End impression CT cervical spine Axial CT images were obtained to the cervical spine. Sagittal and coronal reconstructed images were reviewed. There is extensive carotid artery calcification at the carotid bifurcations. Thyroid is homogeneous. An acute C-spine fracture is not identified. There is degenerative disc disease and spurring at multiple levels. IMPRESSION: 1. No acute fracture noted in the cervical spine. PQRS Compliance Statement: One or more of the following individualized dose reduction techniques were utilized for this examination: 1. Automated exposure control 2. Adjustment of the mA and/or kV according to patient size 3. Use of iterative reconstruction technique Electronically signed by: Jayson Schuler MD (07/23/2018 9:55 PM) [facility]
[2018-07-23] MEDS ORDERED: INSULIN REGULAR 100 UNIT/ML 3ML VIAL. IV ONE (22:00)
[2018-07-23] MEDS ORDERED: MORPHINE SULFATE 4 MG/ML VIAL. IV ONE (22:00)
[2018-07-23] MEDS ORDERED: IV NORMAL SALINE 500ML BAG 500 ML IV ONE (22:15)
[2018-07-23] MEDS ORDERED: ONDANSETRON PF 4 MG/2 ML VIAL. IV PRN (22:15)
[2018-07-23 22:45] VITALS: BP 67/48
[2018-07-23 23:00] VITALS: BP 58/43
[2018-07-23 23:15] VITALS: BP 68/47
[2018-07-23 23:30] VITALS: BP 67/51
[2018-07-23] MEDS ORDERED: C.DIFF MED SCREEN BY RX. MC ONE (23:30)
[2018-07-24] VITALS (31 sets, daily range): BP systolic 59–87; BP diastolic 36–69
[2018-07-24] MEDS ORDERED: NOREPINEPHRIN 8MG/250ML PREMIX 250 ML IV PRN
[2018-07-24] MEDS: IV NORMAL SALINE 1000ML BAG 1,000 ML IV SCH ×3 (00:15→17:25)
--- NOTE | 2018-07-24 02:02 | PDOC2 ---
CARDIOLOGY CONSULT NOTE CHEIF COMPLAINT: Confusion and falls HPI: Patient is a 73-year-old woman with extensive past medical history as noted below who presents to the hospital in the setting of confusion and apparently had a fall at her rehabilitation facility. She was admitted to the hospital in June and was found to have severe LV systolic dysfunction, triple vessel disease and severe aortic disease. She underwent successful PCI and also had aortic intervention. She ultimately was discharged in stable condition to her rehabilitation facility. It appears that at her rehabilitation facility she had declined and had worsening renal failure and ultimately she presented to the ER. In the emergency department she was noted to be hypotensive and was given fluid resuscitation. She was also noted to have acute kidney injury. The patient is somewhat confused but otherwise denies any chest pain. PMHX: 1. Coronary artery disease status post PCI to the left main and LAD 2. Ischemic cardio myopathy with an ejection fraction of 25% 3. Severe peripheral arterial disease with aortic stenosis and bifurcation disease status post aortic stent grafting 4. Severe COPD 5. Morbid obesity 6. Severe debility SOCHX: She has one son and her mother is still alive. 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 She was a smoker in the past up until her recent admission to the hospital. FAMHX: Noncontributory CURRENT MEDS: Current pertinent cardio vascular medications include norepinephrine She was previously discharged on low-dose lisinopril, aspirin, statin, Plavix and metoprolol. ALLERGIES: Allergies Coded Allergies Type Severity Reaction Last Updated Verified Penicillins Allergy Intermediate 06/29/18 Yes ROS: Unable to be obtained due to the patient's mental status PHYSICAL EXAM: Vital Signs: Vital Signs Date Time Temp Pulse Resp B/P (MAP) Pulse Ox O2 Delivery O2 Flow Rate FiO2 07/24/18 01:00 113 12 85/59 (68) Nasal Cannula 3.0 07/23/18 22:45 98.5 98.5 07/23/18 22:30 96 I & O Intake and Output 07/24/18 07:00 Intake Total 1000 ml Balance 1000 ml Intake IV Total 1000 ml Physical Exam: GEN.: No apparent distress. Alert and oriented. HEENT: Head is normocephalic, atraumatic NECK: Supple. LUNGS: Clear to auscultation. HEART: RRR, S1, S2 present. Peripheral pulses intact ABDOMEN: Soft, nontender. Positive bowel sounds. EXTREMITIES: Without any cyanosis. NEUROLOGIC: Normal speech, normal tone PSYCHIATRIC: Normal affect, normal mood. SKIN: No ulcerations DIAGNOSTIC TESTING: Troponin 0.945, BNP greater than 35,000 Sodium 121 down from 134 Potassium 5.2 Creatinine 2.0, increased from 1.[address] of the head is negative, echocardiogram from June 2018 revealed an ejection fraction of 20-25% with moderate mitral tricuspid regurgitation EKG and chest x-ray are pending. ASSESSMENT: 1. Mental status changes, confusion likely due to metabolic derangement 2. Acute kidney injury 3. Subacute hyponatremia 4. Acute on chronic systolic heart failure 5. Hypotension, likely related to dehydration. PLAN: 1. Agree with fluid resuscitation. Would not resuscitate more than 2 liters or aggressively hydrate due to her heart failure. We have spent a considerable amou nt of time trying to diurese her and would likely accept a Cr of 1.5 and a Na of 130 or so. 2. CXR without significant congestion. 3. May need a RHC depending on renal function and volume status. 4. Wean levophed with a goal BP of 80/40. Supportive care. Will follow along. Poor local intermodal truck driver prognosis. ALYSSIA PASCUAL MD July 24, 2018 02:02
--- NOTE | 2018-07-24 03:23 | NUR ---
Pt. admitted to ICU room 106 from ED, arrived to unit on cart. Pt. hypotensive on arrival. Dr. Urena paged and returned call, updated on pt. condition, orders received. Dr. Solano at bedside ~0200, updated on pt. condition, states pt. has chronically low BP, ok for BP to be as low as 70's/40's if pt. remains alert.
--- NOTE | 2018-07-24 05:25 | EKG ---
[facility] [address] [place] [address] Test Date: 2018-07-24 Test Time: 05:05:57 Pat Name: SHANEKA DAVIS Department: Room: 106 1 Gender: F Clock Smith: RAKAN : 1945 Requested By: GENARO PASCUAL Order Number: [id number] Reading MD: Genaro Pascual MD Measurements Intervals [place] Rate: 117 P: 45 WA: 142 QRS: -4 QRSD: 102 T: 174 QT: 322 QTc: 454 Interpretive Statements SINUS TACHYCARDIA LEFT ATRIAL ABNORMALITY LEFTWARD AXIS LVH WITH REPOLARIZATION ABNORMALITY ABNORMAL ECG POSSIBLE INFEROLATERAL ISCHEMIA Electronically Signed On 07-24-2018 9:39:02 CDT by Genaro Pascual MD
--- NOTE | 2018-07-24 06:16 | RAD ---
Examination: Single frontal view the chest HISTORY: History of heart failure COMPARISON: 07/04/2018. Findings: Mild cardiomegaly. Mild prominent appearing bilateral interstitial lung markings likely mild congestive changes. Left lung base airspace opacities likely atelectasis or infiltrate. IMPRESSION: Mild congestive changes. Left lung base airspace opacity likely atelectasis or infiltrate. Electronically signed by: James Ruffin MD (07/24/2018 6:13 AM) [facility] [place]
[2018-07-24] MEDS ORDERED: DEXTROSE 50% 25 GM / 50ML DISP.SYRIN. IV PRN ×2 (10:45)
[2018-07-24] MEDS ORDERED: HYDROcodone/APAP 5/325MG 1 TAB TABLET PO PRN (10:45)
[2018-07-24] MEDS: INSULIN LISPRO 300 UNITS/3 ML INSULN.PEN. SQ SCH ×2 (13:39→17:22)
--- NOTE | 2018-07-24 13:47 | HP ---
ADMIT DATE: 07/23/2018 CHIEF COMPLAINT: Mental status change. HISTORY OF PRESENT ILLNESS: The patient is a pleasant 73-year-old female who resides at [facility]. She was yelling out. This is more than what she usually does, although she does have baseline confusion. The nurse called 911. She was brought to the ER for evaluation, noted to have a sodium of 121. I discussed the case with ER physician. We are admitting the patient to the ICU because she was hypotensive and dehydrated. We have her on a Levophed drip. She is critically ill. PAST MEDICAL HISTORY: Dementia, CAD, CHF with 25% ejection fraction, peripheral vascular disease, aortic stenosis. Coronary artery disease, and she had a PTCA to the LAD with thrombectomy. Femoral popliteal bypass, falls, hypothyroidism, right knee surgery, left ankle surgery. ALLERGIES: PENICILLIN. FAMILY HISTORY: Her son had testicular cancer. SOCIAL HISTORY: She lives at [place]. She smokes. She is retired. No drinking or drugs. MEDICATIONS: She is on Synthroid, aspirin, metoprolol, Aldactone, lisinopril, hydrochlorothiazide, trimethoprim and eyedrops. REVIEW OF SYSTEMS: Unable to obtain. The patient is confused. PHYSICAL EXAMINATION: VITAL SIGNS: Temperature afebrile, pulse 100, respirations 20, blood pressure 104/90. GENERAL: She is on Levophed drip. HEART: Distant S1, S2. LUNGS: Clear. ABDOMEN: Soft. EXTREMITIES: Trace edema. SKIN: No rashes. PSYCHIATRIC: She is anxious. VASCULAR: Good capillary refill. ENDOCRINE: No thyromegaly. LYMPHATICS: No cervical nodes. HEMATOPOIETIC: No bruising. LABORATORY DATA: Sodium is 121, potassium 5.2, chloride 83, BUN 75, creatinine 2, magnesium 2.4. Chest x-ray shows vascular congestion. BNP level greater than 35,000. ASSESSMENT AND PLAN: 1. Hyponatremia, severe metabolic encephalopathy, acute on chronic systolic and diastolic heart failure, hyperkalemia, hypotension, dehydration, chronic renal insufficiency in an elderly female with multiple comorbidities. The patient has been admitted. We are going to try to titrate off the Levophed today. Frequent labs. Gentle IV saline. Consult Cardiology. Home meds. 2. DVT prophylaxis. 3. Full code. Prognosis long-term is guarded. In [place], consult Cardiology. CLARA BENNETT DO DR: WES/rich JOB#: [id number] / [id number]
[2018-07-24 16:40] LABS: CALCIUM 9.1 mg/dL (8.5-10.1); CREATININE 1.8 mg/dL (0.6-1.0); GFR 27.7; POTASSIUM 4.6 mmol/L (3.5-5.1)
[2018-07-24] MEDS: HEPARIN for SUB-Q USE 5,000 UNIT/ML VIAL. SQ SCH ×2 (17:21→21:32)
[2018-07-25] VITALS (9 sets, daily range): BP systolic 60–91; BP diastolic 43–74
[2018-07-25] MEDS: IV NORMAL SALINE 1000ML BAG 1,000 ML IV SCH (03:38)
[2018-07-25] MEDS: HEPARIN for SUB-Q USE 5,000 UNIT/ML VIAL. SQ SCH (06:00)
--- NOTE | 2018-07-25 07:39 | NUR ---
This nurse was giving bedside shift report to VENKATA Hassan. Pt was talking in her sleep. While shift report was being given, this nurse noticed pt heart rate had dropped into the 80's, which was a big change from the 120's minutes before shift report started. Pt was given a sternal rub and just moaned. See code blue sheet. This nurse and another nurse tried numerous times to call son, Guillermo. Voicemail was left to call back. This nurse called Xiomara during code. Dr. Urena was notified of pt expiring after code and Dr. Solano. Family still has not be reached at this time.
--- NOTE | 2018-07-25 08:53 | PDOC5 ---
CODE REPORT CODE REPORT CODE BLUE REPORT (Emergency Physician response): SAHARA ALIZA called overhead for ICU patient in room 106 at 0700. Patient is FULL CODE on admission. Admitted from [facility] for hyponatremia, hypotension, and dehydration. Patient with baseline confusion due to dementia. Hx of CAD with cardiac stents and CHF. Patient reportedly more confused this AM and subsequently started to become bradycardic prior to losing pulse. PHYSICAL EXAMINATION: GENERAL: Elderly female, frail in appearance HEENT: Head normal cephalic, edentulous HEART: No heart tones, Carotid pulse absent LUNGS: Bilateral with bag valve mask, no spontaneous respirations ABDOMEN: Soft without significant distention EXTREMITIES: Trace edema, without deformity. SKIN: No rashes, cool to touch NEUROLOGICAL: GCS 3, Unresponsive CPR initiated by TOMBSTONE CARVERstaff mechanical engineer upon my arrival to department. ACLS protocol continued. Initial rhythm asystole. Blood glucose 306. Epi x 7 and 1 amp of Bicarb provided. Patient was intubated with 8.0 ETT which was 24cm at the lip. Positive ETCO2 noted. Bilateral breath sounds without sounds over epigastrium were noted. Bloody fluid was noted in ETT which was cleared with suctioning. Likely from pulmonary contusions from CPR. TOMBSTONE CARVER discussed case with cardiac consultants regarding patient's condition. It was noted patient had previously been a DNR prior to cardiac stent placement and was changed to FULL CODE. Patients admitted as FULL CODE, however patient is confused and unable to make decision upon her admission. Attempted to contact DPOA but unsuccessful. Patient condition continued to be grave and no change in rhythm. Continued asystole. Decision to terminate resuscitation efforts. Time of : 721 TOMBSTONE CARVER to notify hospitalist (admitting physician) and will have them contact family and primary physician. DX: Cardiopulmonary Arrest Disposition: Intubation Intubation : Intubation Method: orotracheal Tube Size (cm): 8.0 Breath Sounds after Intubation: equal Progress Intubation with Leander and brenda under emergent consent. Time out performed. Significant amount of oral secretions in pharynx which required suctioning. Brenda placed between vocal cords with 8.0 cuffed ETT placement via Seldinger Technique. Positive ETCO2, fogging in tube, and direct visualization. Bloody fluid noted in tube which was successfully suctioned with inline suction. Critical Care Time Critical care time was 30 minutes which includes time at bedside, spent in discussion of patient's care with specialists and/or family members, with interpretation of laboratory and/or radiological studies and is exclusive of procedures. DEMETRIO GONSALES DO July 25, 2018 08:53
--- NOTE | 2018-07-25 10:29 | CARD ---
MR#: [id number] Date of Study: 07/24/2018 Ordering Physician: ALYSSIA PASCUAL, Referring Physician: MANPREET GALINDO Tech: Sherrill Miller PATRICIA APPROVED REPORT EXAM: LIMITED Two-dimensional echocardiogram Other Information Quality : Good INDICATION LV Function:Systolic LEFT VENTRICLE Left ventricle systolic function is severely impaired. The Ejection Fraction is 15-20%. There is devorah re global hypokinesis. 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 GREAT VESSELS The aortic root is normal in size. PERICARDIAL EFFUSION There is no evidence of significant pericardial effusion. Critical Notification Critical Value: No <Conclusion> Left ventricle systolic function is severely impaired. The Ejection Fraction is 15-20%. There is severe global hypokinesis. 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 Limited echo only Signed by : Alyssia Pascual, Electronically Approved : 07/25/2018 10:29:01
--- NOTE | 2018-07-25 15:47 | EKG ---
[facility] [address] [place] [address] Test Date: 2018-07-23 Test Time: 20:19:32 Pat Name: SHANEKA DAVIS Department: Room: 106 1 Gender: F Park Keeper: : [id number] Requested By: KIRA BURGER Order Number: [id number] Reading MD: Genaro Solano MD Measurements Intervals [place] Rate: 114 P: 39 MT: 154 QRS: 31 QRSD: 108 T: 138 QT: 316 QTc: 438 Interpretive Statements SINUS TACHYCARDIA LEFT ATRIAL ABNORMALITY LVH WITH REPOLARIZATION ABNORMALITY Electronically Signed On 08-19-2018 14:41:25 CDT by Genaro Solano MD
--- NOTE | 2018-07-25 18:47 | DS ---
DATE OF DISCHARGE: 07/25/2018 SUMMARY ADMISSION DIAGNOSES: Hyponatremia, severe metabolic encephalopathy, [id number] systolic and diastolic heart failure, hyperkalemia, hypotension, dehydration, chronic renal insufficiency. CAUSE OF : Progression of disease (she was coded, she was in asystole). HOSPITAL COURSE: The patient was a pleasant elderly female who resides at [place]. She had developed mental status change. She was yelling out a lot. She was brought to the ER yesterday and was admitted with hyponatremia and severe metabolic encephalopathy and heart failure. We consulted Cardiology, gave the patient gentle IV fluids and Levophed because she was hypotensive. We continued her home meds, DVT prophylaxis and watched her in the ICU. When I saw her yesterday, she was clinically stable. Her vital signs were fine. Earlier this morning, she suddenly went into asystole. Dawson cole was called. Dr. Mohr from the ER ran the code. He gave 7 amps of epinephrine, 1 amp of bicarb. The patient was pronounced at 07:22. CLARA BENNETT DO DR: WES/rich JOB#: [id number] / [id number]
== END 2018-07-25 07:22 | disposition expired | DRG 682 ==
LOC: ER 19:51 → 1 WEST ICU 21:38
PROVIDERS: ADMIT Family Medicine; ATTEND Family Medicine
PROC: 5A12012 Performance of Cardiac Output, Single, Manual (ICD-10-PCS; principal; 2018-07-25)
PROC: 0BH17EZ Insertion of Endotracheal Airway into Trachea, Via Natural or Artificial Opening (ICD-10-PCS; 2018-07-25)
DX: N17.9 Acute kidney failure, unspecified (principal); I50.43 Acute on chronic combined systolic (congestive) and diastolic (congestive) heart failure; G93.41 Metabolic encephalopathy; I42.9 Cardiomyopathy, unspecified; E87.1 Hypo-osmolality and hyponatremia; E87.5 Hyperkalemia; E86.0 Dehydration; Z66 Do not resuscitate; E03.9 Hypothyroidism, unspecified; F03.90 Unspecified dementia, unspecified severity, without behavioral disturbance, psychotic disturbance, mood disturbance, and anxiety; E66.01 Morbid (severe) obesity due to excess calories; F17.200 Nicotine dependence, unspecified, uncomplicated; X58.XXXA Exposure to other specified factors, initial encounter; I25.10 Atherosclerotic heart disease of native coronary artery without angina pectoris; I35.0 Nonrheumatic aortic (valve) stenosis; I70.202 Unspecified atherosclerosis of native arteries of extremities, left leg; J44.9 Chronic obstructive pulmonary disease, unspecified; N18.9 Chronic kidney disease, unspecified; Z88.0 Allergy status to penicillin; Z79.899 Other long term (current) drug therapy; Z68.27 Body mass index [BMI] 27.0-27.9, adult; Y93.89 Activity, other specified; Y92.89 Other specified places as the place of occurrence of the external cause; Y99.8 Other external cause status
CPT/HCPCS: 36415; 51701; 70450; 71045; 72100; 72125; 73521; 80048; 80053; 81001; 82140; 82550; 82553; 82962; 83690; 83735; 83880; 84484; 85007; 85025; 85610; 85730; 87641; 93005; 93308; 96361; 96374; 96375; J0171; J1644; J1815; J2270; J7030; J7040; 99285-25